=== PATIENT | female | born 1940 | race African-American/Black ===

== ENCOUNTER 2017-04-17 16:00 | Inpatient (IN) | payer MEDICARE ==
[2017-04-17 17:00] LABS: ADD MAN DIFF? NO
[2017-04-17 17:02] LABS: BASO # 0.1 x10^3/uL (0.0-0.2); BASO % 1 % (0-3); EOS # 0.1 x10^3/uL (0.0-0.7); EOS % 2 % (0-3); HEMOGLOBIN 11.9 g/dL (12.0-15.5); LYMPH # 1.7 x10^3/uL (1.0-4.8); LYMPH % 33 % (24-48); MEAN CORPUSCULAR HEMOGLOBIN 24 pg (25-35); MEAN CORPUSCULAR HGB CONC 32 g/dL (31-37); MEAN CORPUSCULAR VOLUME 73 fL (79-100); MONO # 0.8 x10^3/uL (0.0-1.1); MONO % 15 % (0-9); NEUT # 2.6 x10^3uL (1.8-7.7); NEUT % 49 % (31-73); PLATELET COUNT 257 x10^3/uL (140-400); RED BLOOD COUNT 5.05 x10^6/uL (3.50-5.40); RED CELL DISTRIBUTION WIDTH 20.5 % (11.5-14.5); WHITE BLOOD COUNT 5.4 x10^3/uL (4.0-11.0)
[2017-04-17 17:12] LABS: INR 1.3 (0.8-1.1); PROTHROMBIN TIME PATIENT 15.1 SEC (11.7-14.0)
[2017-04-17 17:13] LABS: PARTIAL THROMBOPLASTIN TIME 33 SEC (24-38)
[2017-04-17 17:14] LABS: ANION GAP 13 (6-14); BLOOD UREA NITROGEN 20 mg/dL (7-20); CALCIUM 9.4 mg/dL (8.5-10.1); CARBON DIOXIDE 25 mmol/L (21-32); CHLORIDE 104 mmol/L (98-107); CREATININE 5.1 mg/dL (0.6-1.0); GLUCOSE 81 mg/dL (70-99); POTASSIUM 4.7 mmol/L (3.5-5.1); SODIUM 142 mmol/L (136-145)
[2017-04-17 17:25] LABS: C-REACTIVE PROTEIN 13.5 mg/L (0-3.3)
[2017-04-17] MEDS ORDERED: ONDANSETRON PF 4 MG/2 ML VIAL. IV (18:00)
[2017-04-17 18:04] LABS: ANISOCYTOSIS MOD; HYPOCHROMIA MOD; MICROCYTOSIS MOD; PLT ESTIMATE ADEQUATE (ADEQUATE); POLYCHROMASIA SLIGHT; SCHISTOCYTES FEW; TARGET CELLS MOD; TOXIC GRANULATION SLIGHT; TOXIC VACUOLATION SLIGHT
[2017-04-17 18:29] LABS: SEDIMENTATION RATE 16 (0-25)
[2017-04-17] MEDS: CALCIUM ACETATE PO (21:00)
[2017-04-17] MEDS: fentaNYL PF VIAL 100 MCG/2 ML VIAL IV (21:50)
[2017-04-17] MEDS: sulfaSALAzine 500 MG TABLET PO (21:50)
[2017-04-17] MEDS: CINACALCET HCL 30 MG TABLET PO (21:50)
[2017-04-18 04:45] LABS: ADD MAN DIFF? NO
[2017-04-18 04:55] LABS: BASO # 0.1 x10^3/uL (0.0-0.2); BASO % 1 % (0-3); EOS # 0.3 x10^3/uL (0.0-0.7); EOS % 5 % (0-3); HEMATOCRIT 34.1 % (36.0-47.0); HEMOGLOBIN 10.7 g/dL (12.0-15.5); LYMPH # 1.5 x10^3/uL (1.0-4.8); LYMPH % 27 % (24-48); MEAN CORPUSCULAR HEMOGLOBIN 23 pg (25-35); MEAN CORPUSCULAR HGB CONC 31 g/dL (31-37); MEAN CORPUSCULAR VOLUME 73 fL (79-100); MONO # 0.8 x10^3/uL (0.0-1.1); MONO % 15 % (0-9); NEUT # 2.8 x10^3uL (1.8-7.7); NEUT % 52 % (31-73); PLATELET COUNT 243 x10^3/uL (140-400); RED BLOOD COUNT 4.69 x10^6/uL (3.50-5.40); RED CELL DISTRIBUTION WIDTH 20.5 % (11.5-14.5); WHITE BLOOD COUNT 5.5 x10^3/uL (4.0-11.0)
[2017-04-18 05:16] LABS: ANION GAP 14 (6-14); BLOOD UREA NITROGEN 26 mg/dL (7-20); CALCIUM 8.3 mg/dL (8.5-10.1); CARBON DIOXIDE 24 mmol/L (21-32); CHLORIDE 104 mmol/L (98-107); CREATININE 6.2 mg/dL (0.6-1.0); GLUCOSE 78 mg/dL (70-99); POTASSIUM 4.4 mmol/L (3.5-5.1); SODIUM 142 mmol/L (136-145)
[2017-04-18] MEDS: LEVOTHYROXINE 50 MCG TABLET PO (05:46)
[2017-04-18] MEDS: fentaNYL PF VIAL 100 MCG/2 ML VIAL IV ×2 (05:46→21:43)
[2017-04-18] MEDS: CALCIUM ACETATE PO ×3 (09:00→21:00)
[2017-04-18] MEDS: FOLIC/VIT B COMP W-C (RENAL) TABLET. PO (09:06)
[2017-04-18] MEDS: sulfaSALAzine 500 MG TABLET PO ×2 (09:06→21:32)
[2017-04-18] MEDS: ASPIRIN ENTERIC COATED 81 MG TABLET.DR. PO (09:15)
[2017-04-18] MEDS: CLOPIDOGREL BISULFATE 75 MG TABLET PO (09:15)
[2017-04-18] MEDS ORDERED: ACETAMINOPHEN 500 MG TABLET PO (09:30)
[2017-04-18] MEDS ORDERED: 0.9 % SODIUM CHLORIDE 10 ML DISP.SYRIN. IV ×2 (15:00)
[2017-04-18] MEDS ORDERED: IV NORMAL SALINE 1000ML BAG 1,000 ML IV (15:00)
[2017-04-18] MEDS: ONDANSETRON PF 4 MG/2 ML VIAL. IV (19:12)
[2017-04-18] MEDS ORDERED: DIALYSIS PATIENT. MC ×2 (20:45)
[2017-04-18] MEDS: CINACALCET HCL 30 MG TABLET PO (21:32)
[2017-04-19] MEDS: fentaNYL PF VIAL 100 MCG/2 ML VIAL IV ×2 (04:20→09:25)
[2017-04-19] MEDS: LEVOTHYROXINE 50 MCG TABLET PO (06:25)
[2017-04-19] MEDS: CALCIUM ACETATE PO (09:00)
[2017-04-19] MEDS: sulfaSALAzine 500 MG TABLET PO (09:19)
[2017-04-19] MEDS: CLOPIDOGREL BISULFATE 75 MG TABLET PO (09:19)
[2017-04-19] MEDS: ASPIRIN ENTERIC COATED 81 MG TABLET.DR. PO (09:19)
[2017-04-19] MEDS: FOLIC/VIT B COMP W-C (RENAL) TABLET. PO (09:19)
[2017-04-19] MEDS: traMADol 50 MG TABLET PO (10:50)
== END 2017-04-19 14:52 | disposition home health service (06) | DRG 123 ==
LOC: ER 16:00 → ED HOLD 17:09 → 6 SOUTH 20:30
PROC: 5A1D70Z Performance of Urinary Filtration, Intermittent, Less than 6 Hours Per Day (ICD-10-PCS; principal; 2017-04-18)
DX: H46.8 Other optic neuritis (principal); K50.90 Crohn's disease, unspecified, without complications; N18.6 End stage renal disease; D63.1 Anemia in chronic kidney disease; H47.012 Ischemic optic neuropathy, left eye; E03.9 Hypothyroidism, unspecified; E78.00 Pure hypercholesterolemia, unspecified; H54.62 Unqualified visual loss, left eye, normal vision right eye; M79.2 Neuralgia and neuritis, unspecified; Z88.5 Allergy status to narcotic agent; I73.9 Peripheral vascular disease, unspecified; Z79.82 Long term (current) use of aspirin; Z82.49 Family history of ischemic heart disease and other diseases of the circulatory system; Z86.73 Personal history of transient ischemic attack (TIA), and cerebral infarction without residual deficits; Z89.512 Acquired absence of left leg below knee; Z99.2 Dependence on renal dialysis; Z89.612 Acquired absence of left leg above knee
CPT/HCPCS: 36415; 70544; 70547; 70551; 80048; 85025; 85610; 85651; 85730; 86140; 93005; 93306; 97162-GP; 97166-GO; 97530-GP; J2405; J3010

== ENCOUNTER 2017-11-22 19:45 | Inpatient (IN) | payer MEDICARE ==
[~2017-11-22] VITALS: Ht 165.1 cm; Wt 43.2 kg
[~2017-11-22 19:45] MED LIST: ACET650S11 PR; CALC667S PO; CINA30TA2 PO; CINA60TA PO; CLON0.1T PO; CLON0.2T PO; DARBEPOETIN ALFA IN POLYSORBAT SQ; DIPH1TAB PO; DOXY100C14 PO; FOLI0.8T3 PO; HYDR-2762 PO; LEVO50TA5 PO; MIDO5TAB PO; POLY15DR27 OU; SULF500T PO; SULF500T7 PO; TRIA15CR3 TP; VANC1VIA3 MC
--- NOTE | 2017-11-22 20:06 | PHYS DOC ---
Past Medical History Past Medical History: Arrhythmia, High Cholesterol, Heart Disease, Renal Disease, Renal Failure Additional Past Medical Histor: CROHNS ,PVD Additional Past Surgical Histo: COLON RESECTION,AV SHUNT,LEFT BKA,RIGHT CHEST PERMACATH Alcohol Use: Occasionally Drug Use: None Adult General Chief Complaint Chief Complaint: WEAKNESS/GENERALIZED HPI HPI Patient is a 77 year old female with history of arrhythmias, high cholesterol , end-stage renal disease on dialysis Sunday last dialyzed on Sunday this week which is yesterday who presents today from a local [facility]. Patient is a very poor historian. Per report from the [facility] and EMS crew they state patient has had generalized weakness and they suspect she is septic. Source of infection unknown patient has a dialysis catheter on the right upper chest. Review of Systems Review of Systems Constitutional: Denies fever or chills [] Eyes: Denies change in visual acuity, redness, or eye pain [] HENT: Denies nasal congestion or sore throat [] Respiratory: Denies cough or shortness of breath [] Cardiovascular: No additional information not addressed in HPI [] GI: Denies abdominal pain, nausea, vomiting, bloody stools or diarrhea [] : Denies dysuria or hematuria [] Musculoskeletal: Denies back pain or joint pain [] Integument: Denies rash or skin lesions [] Neurologic: Reports generalized weakness. Denies headache, focal weakness or sensory changes [] All other systems were reviewed and found to be within normal limits, except as documented in this note. Current Medications Current Medications Current Medications Medications (Trade) Dose Ordered Sig/Yovanny Start Time Stop Time Status Last Admin Dose Admin Levofloxacin/ Dextrose 150 ml @ 100 mls/hr Q24H 11/22/17 20:00 11/23/17 00:00 DC 11/22/17 20:36 100 MLS/HR Allergies Allergies Allergies Coded Allergies Type Severity Reaction Last Updated Verified codeine Allergy Intermediate HIVES 04/17/17 Yes I S O L A T I O N *CONTACT* Allergy Unknown 11/12/17 Yes Physical Exam Physical Exam Constitutional: Well developed, well nourished, no acute distress, non-toxic appearance. [] HENT: Normocephalic, atraumatic, bilateral external ears normal, oropharynx moist, no oral exudates, nose normal. [] Eyes: PERRLA, EOMI, conjunctiva normal, no discharge. [] Neck: Normal range of motion, no tenderness, supple, no stridor. [] Cardiovascular:Heart rate regular rhythm Lungs & Thorax: Bilateral breath sounds clear to auscultation [] Right upper chest noted for a dialysis catheter. No signs of infection around the catheter site. Abdomen: Bowel sounds normal, soft, no tenderness, no masses, no pulsatile masses. [] Skin: Warm, very dry skin and dry mucous membranes. Back: No tenderness, no CVA tenderness. [] Extremities: No tenderness, no cyanosis, no clubbing, ROM intact, no edema. [] Neurologic: Alert and oriented X 3, normal motor function, normal sensory function, no focal deficits noted. [] Psychologic: Affect normal, judgement normal, mood normal. [] Current Patient Data Vital Signs Vital Signs Date Time Temp Pulse Resp B/P (MAP) Pulse Ox O2 Delivery O2 Flow Rate FiO2 11/22/17 21:00 94 19 100 11/22/17 20:00 100.2 90/51 (64) Nasal Cannula 4.0 100.2 Lab Values Laboratory Tests Test 11/22/17 20:00 White Blood Count 15.7 x10^3/uL (4.0-11.0) H Red Blood Count 3.44 x10^6/uL (3.50-5.40) L Hemoglobin 9.0 g/dL (12.0-15.5) L Hematocrit 28.9 % (36.0-47.0) L Mean Corpuscular Volume 84 fL (79-100) Mean Corpuscular Hemoglobin 26 pg (25-35) Mean Corpuscular Hemoglobin Concent 31 g/dL (31-37) Red Cell Distribution Width 20.9 % (11.5-14.5) H Platelet Count 643 x10^3/uL (140-400) H Neutrophils (%) (Auto) 69 % (31-73) Lymphocytes (%) (Auto) 14 % (24-48) L Monocytes (%) (Auto) 12 % (0-9) H Eosinophils (%) (Auto) 4 % (0-3) H Basophils (%) (Auto) 1 % (0-3) Neutrophils # (Auto) 10.9 x10^3uL (1.8-7.7) H Lymphocytes # (Auto) 2.2 x10^3/uL (1.0-4.8) Monocytes # (Auto) 1.8 x10^3/uL (0.0-1.1) H Eosinophils # (Auto) 0.6 x10^3/uL (0.0-0.7) Basophils # (Auto) 0.2 x10^3/uL (0.0-0.2) Platelet Estimate Increased (ADEQUATE) Large Platelets Present Polychromasia Slight Hypochromasia Slight Anisocytosis Mod Prothrombin Time 18.0 SEC (11.7-14.0) H Prothrombin Time INR 1.6 (0.8-1.1) H PTT 41 SEC (24-38) H Sodium Level 139 mmol/L (136-145) Potassium Level 3.3 mmol/L (3.5-5.1) L Chloride Level 97 mmol/L (98-107) L Carbon Dioxide Level 26 mmol/L (21-32) Anion Gap 16 (6-14) H Blood Urea Nitrogen 23 mg/dL (7-20) H Creatinine 4.5 mg/dL (0.6-1.0) H Estimated GFR (Cockcroft-Gault) 11.5 BUN/Creatinine Ratio 5 (6-20) L Glucose Level 127 mg/dL (70-99) H Lactic Acid Level 1.7 mmol/L (0.4-2.0) Calcium Level 11.1 mg/dL (8.5-10.1) H Magnesium Level 2.1 mg/dL (1.8-2.4) Total Bilirubin 1.2 mg/dL (0.2-1.0) H Aspartate Amino Transferase (AST) 26 U/L (15-37) Alanine Aminotransferase (ALT) 30 U/L (14-59) Alkaline Phosphatase 178 U/L (46-116) H Troponin I Quantitative < 0.017 ng/mL (0.000-0.055) NL-Krp-D-Type Natriuretic Peptide 68949 pg/mL (0-449) H Total Protein 10.2 g/dL (6.4-8.2) H Albumin 3.6 g/dL (3.4-5.0) Albumin/Globulin Ratio 0.5 (1.0-1.7) L Procalcitonin 7.19 ng/mL (0.00-0.10) H Laboratory Tests 11/22/17 20:00 Laboratory Tests 11/22/17 20:00 EKG EKG [] Radiology/Procedures Radiology/Procedures []PROCEDURE: PORTABLE CHEST 1V EXAM: CHEST 1 VIEW. HISTORY: Weakness, hypotension. COMPARISON: 11/14/2017. FINDINGS: A frontal view of the chest is obtained. A right internal jugular hemodialysis catheter has its tip in the right atrium. The previously noted right pleural effusion has decreased and is now small. A trace left pleural effusion may persist. There is mild atelectasis or infiltrate in the right base. There is no pneumothorax. The heart is mildly enlarged. There are chronic right rib fractures. IMPRESSION: 1. Improved pleural effusions, now small. 2. Right basilar atelectasis versus infiltrate. 3. Mild cardiomegaly. Electronically signed by: Casa Matute MD (11/22/2017 9:35 PM) [facility] DICTATED and SIGNED BY: JOELLE MATUTE MD DATE: 11/22/172132 PROCEDURE: CT HEAD WO CONTRAST EXAM: CT HEAD WITHOUT CONTRAST. HISTORY: Weakness. TECHNIQUE: Computed tomography of the head was performed without intravenous contrast. COMPARISON: 04/17/2017. FINDINGS: There is no intracranial hemorrhage. Hypoattenuation within the periventricular white matter indicates mild chronic microangiopathic change. Prominence of the lateral ventricles and hemispheric sulci indicates moderate atrophy. The visualized paranasal sinuses appear clear. There are changes of bilateral cataract surgery. The temporal bones are unremarkable. The calvarium reveals no suspicious lesions. There are atherosclerotic calcifications of the internal carotid and vertebral arteries. IMPRESSION: 1. No acute intracranial findings. 2. Moderate atrophy and mild chronic microangiopathic white matter change. *One or more of the following individualized dose reduction techniques were utilized for this examination: 1. Automated exposure control. 2. Adjustment of the mA and/or kV according to patient size. 3. Use of iterative reconstruction technique. Electronically signed by: Casa Matute MD (11/22/2017 9:33 PM) [facility] DICTATED and SIGNED BY: JOELLE MATUTE MD DATE: 11/22/172130 Course & Med Decision Making Course & Med Decision Making Pertinent Labs and Imaging studies reviewed. (See chart for details) This is a 77-year-old female patient presenting to the ED today from the local [facility], patient was sent to the ED for sepsis and generalized weakness. Patient has right upper chest dialysis catheter which has been infected before. Currently does not show any signs of infection on the exterior aspect. On arrival to the ED temperature was 100.2 heart rate 93 blood pressure 90/51 respirations 16 O2 sats 100% on 4 L of oxygen. CBC with a WBC of 15.7 and left shift, CMP with nothing acute, lactic 1.7. Chest x-ray interpreted by radiologist was concerning for right basilar atelectasis versus infiltrate. Patient was started on Zosyn and Levaquin. We gave her 500 ML of normal saline in the ED. She could not get the entire sepsis protocol IV fluids because of her end-stage renal disease. Consulted with Dr. Loyd who accepted patient for admission. Routine consult placed for infectious disease and nephrology. Dragon Disclaimer Dragon Disclaimer This electronic medical record was generated, in whole or in part, using a voice recognition dictation system. Departure Departure Impression: Primary Impression: RLL pneumonia Additional Impressions: Hypoxia Fever Leukocytosis End stage renal disease Disposition: ADMITTED INPATIENT Condition: STABLE Referrals: TONE QUINTANA MD (PCP) Attending Co-Sign Attending Co-Sign The patient was not seen by me. The [facility] chart was reviewed. I agree with the plan of care. Problem Qualifiers Primary Impression: RLL pneumonia Pneumonia type: due to unspecified organism Qualified Codes: J18.1 - Lobar pneumonia, unspecified organism Additional Impressions: Fever Fever type: unspecified Qualified Codes: R50.9 - Fever, unspecified Leukocytosis Leukocytosis type: unspecified Qualified Codes: D72.829 - Elevated white blood cell count, unspecified RADHA LANCE RIPSHEAR OPERATOR Nov 22, 2017 20:[address] MD Nov 24, 2017 14:58
[2017-11-22 20:14] LABS: BASO # 0.2 x10^3/uL (0.0-0.2); BASO % 1 % (0-3); EOS # 0.6 x10^3/uL (0.0-0.7); EOS % 4 % (0-3); HEMATOCRIT 28.9 % (36.0-47.0); LYMPH # 2.2 x10^3/uL (1.0-4.8); LYMPH % 14 % (24-48); MEAN CORPUSCULAR HEMOGLOBIN 26 pg (25-35); MEAN CORPUSCULAR HGB CONC 31 g/dL (31-37); MEAN CORPUSCULAR VOLUME 84 fL (79-100); MONO # 1.8 x10^3/uL (0.0-1.1); MONO % 12 % (0-9); NEUT # 10.9 x10^3uL (1.8-7.7); NEUT % 69 % (31-73); PLATELET COUNT 643 x10^3/uL (140-400); RED BLOOD COUNT 3.44 x10^6/uL (3.50-5.40); RED CELL DISTRIBUTION WIDTH 20.9 % (11.5-14.5); WHITE BLOOD COUNT 15.7 x10^3/uL (4.0-11.0)
[2017-11-22 20:23] LABS: CALCIUM 11.1 mg/dL (8.5-10.1); CREATININE 4.5 mg/dL (0.6-1.0); GFR 11.5; POTASSIUM 3.3 mmol/L (3.5-5.1)
[2017-11-22 20:38] LABS: ALBUMIN 3.6 g/dL (3.4-5.0); ALBUMIN/GLOBULIN RATIO 0.5 (1.0-1.7); MAGNESIUM 2.1 mg/dL (1.8-2.4); TOTAL BILIRUBIN 1.2 mg/dL (0.2-1.0); TOTAL PROTEIN 10.2 g/dL (6.4-8.2)
[2017-11-22 21:23] LABS: ANISOCYTOSIS MOD; HYPOCHROMIA SLIGHT
[2017-11-22 21:24] LABS: PLT ESTIMATE INCREASED (ADEQUATE); POLYCHROMASIA SLIGHT
[2017-11-22] MEDS ORDERED: ACETAMINOPHEN 325 MG TABLET. PO PRN (21:30)
[2017-11-22] MEDS ORDERED: IV NORMAL SALINE 500ML BAG 500 ML IV ONE (21:30)
[2017-11-22] MEDS ORDERED: ACETAMINOPHEN 500 MG TABLET PO ONE (21:30)
[2017-11-22] MEDS ORDERED: ONDANSETRON PF 4 MG/2 ML VIAL. IV PRN (21:30)
--- NOTE | 2017-11-22 21:36 | RAD ---
EXAM: CT HEAD WITHOUT CONTRAST. HISTORY: Weakness. TECHNIQUE: Computed tomography of the head was performed without intravenous contrast. COMPARISON: 04/17/2017. FINDINGS: There is no intracranial hemorrhage. Hypoattenuation within the periventricular white matter indicates mild chronic microangiopathic change. Prominence of the lateral ventricles and hemispheric sulci indicates moderate atrophy. The visualized paranasal sinuses appear clear. There are changes of bilateral cataract surgery. The temporal bones are unremarkable. The calvarium reveals no suspicious lesions. There are atherosclerotic calcifications of the internal carotid and vertebral arteries. IMPRESSION: 1. No acute intracranial findings. 2. Moderate atrophy and mild chronic microangiopathic white matter change. *One or more of the following individualized dose reduction techniques were utilized for this examination: 1. Automated exposure control. 2. Adjustment of the mA and/or kV according to patient size. 3. Use of iterative reconstruction technique. Electronically signed by: Casa Matute MD (11/22/2017 9:33 PM) [facility]
--- NOTE | 2017-11-22 21:38 | RAD ---
EXAM: CHEST 1 VIEW. HISTORY: Weakness, hypotension. COMPARISON: 11/14/2017. FINDINGS: A frontal view of the chest is obtained. A right internal jugular hemodialysis catheter has its tip in the right atrium. The previously noted right pleural effusion has decreased and is now small. A trace left pleural effusion may persist. There is mild atelectasis or infiltrate in the right base. There is no pneumothorax. The heart is mildly enlarged. There are chronic right rib fractures. IMPRESSION: 1. Improved pleural effusions, now small. 2. Right basilar atelectasis versus infiltrate. 3. Mild cardiomegaly. Electronically signed by: Casa Matute MD (11/22/2017 9:35 PM) [facility]
[2017-11-22 23:09] VITALS: BP 83/49
[2017-11-22] MEDS: fentaNYL PF VIAL 100 MCG/2 ML VIAL IV PRN (23:46)
[2017-11-23] MEDS ORDERED: PIPERACILLIN/TAZOBACTAM 4.5 GM in IV NORMAL SALINE 100ML 100 ML IV SCH ×2
[2017-11-23] MEDS ORDERED: MULT1TAB52 PO (00:24)
[2017-11-23 03:06] VITALS: BP 83/49
[2017-11-23 04:14] LABS: BASO # 0.2 x10^3/uL (0.0-0.2); BASO % 1 % (0-3); EOS # 0.7 x10^3/uL (0.0-0.7); EOS % 5 % (0-3); HEMATOCRIT 25.1 % (36.0-47.0); HEMOGLOBIN 8.1 g/dL (12.0-15.5); LYMPH # 1.7 x10^3/uL (1.0-4.8); LYMPH % 12 % (24-48); MEAN CORPUSCULAR HEMOGLOBIN 27 pg (25-35); MEAN CORPUSCULAR HGB CONC 32 g/dL (31-37); MEAN CORPUSCULAR VOLUME 84 fL (79-100); MONO % 14 % (0-9); NEUT # 9.6 x10^3uL (1.8-7.7); NEUT % 68 % (31-73); PLATELET COUNT 517 x10^3/uL (140-400); RED BLOOD COUNT 2.99 x10^6/uL (3.50-5.40); RED CELL DISTRIBUTION WIDTH 20.8 % (11.5-14.5); WHITE BLOOD COUNT 14.2 x10^3/uL (4.0-11.0)
[2017-11-23 04:34] LABS: CALCIUM 10.6 mg/dL (8.5-10.1); CREATININE 4.8 mg/dL (0.6-1.0); GFR 10.7; POTASSIUM 3.1 mmol/L (3.5-5.1)
[2017-11-23] MEDS: fentaNYL PF VIAL 100 MCG/2 ML VIAL IV PRN (05:05)
[2017-11-23] MEDS ORDERED: PIPERACILLIN/TAZOBACTAM 2.25 GM in IV NORMAL SALINE 50ML 50 ML IV SCH (06:00)
[2017-11-23 07:00] VITALS: BP 81/51
--- NOTE | 2017-11-23 08:17 | EKG ---
[facility] [address] [place] [address] Test Date: 2017-11-22 Test Time: 20:19:58 Pat Name: ELMA WAHL Department: Room: 532 1 Gender: F Manager Architectural: : 1940 Requested By: RADHA LANCE Order Number: [id number] Reading MD: Nahid Santana MD Measurements Intervals [place] Rate: 94 P: 44 PA: 178 QRS: 36 QRSD: 72 T: 55 QT: 356 QTc: 450 Interpretive Statements SINUS RHYTHM Electronically Signed On 11-26-2017 8:46:28 CDT by Nahid Santana MD
[2017-11-23] MEDS ORDERED: POTASSIUM CHLORIDE 20 MEQ TABLET.ER. PO ONE (09:00)
[2017-11-23] MEDS ORDERED: TRIAMCINOLONE ACETONIDE 0.1% TOPICAL CREAM 15GM TUBE. TP PRN (10:45)
[2017-11-23] MEDS ORDERED: POLYVINYL ALCOHOL 1.4% OPHTH SOLUTION 15ML BOTTLE. OU PRN (10:45)
[2017-11-23] MEDS ORDERED: ACETAMINOPHEN 650 MG SUPP.RECT. PR PRN (10:45)
[2017-11-23 11:00] VITALS: BP 80/49
--- NOTE | 2017-11-23 11:47 | PDOC ---
Renal-Progress Notes Subjective Notes Notes WEAKNESS History of Present Illness Hx of present illness STABLE Vitals Vitals Vital Signs Date Time Temp Pulse Resp B/P (MAP) Pulse Ox O2 Delivery O2 Flow Rate FiO2 11/23/17 11:00 97.9 88 18 80/49 (59) 100 Nasal Cannula 3.0 97.9 Weight Weight [ ] I.O. Intake and Output Intake and Output 11/23/17 07:00 Intake Total 300 ml Output Total 700 ml Balance -400 ml IV Total 300 ml Output Urine Total 0 ml Stool Total 100 ml Gastric Drainage Total 600 ml # Bowel Movements 3 Labs Labs Laboratory Tests Test 11/22/17 20:00 11/23/17 04:00 White Blood Count 15.7 x10^3/uL (4.0-11.0) 14.2 x10^3/uL (4.0-11.0) Red Blood Count 3.44 x10^6/uL (3.50-5.40) 2.99 x10^6/uL (3.50-5.40) Hemoglobin 9.0 g/dL (12.0-15.5) 8.1 g/dL (12.0-15.5) Hematocrit 28.9 % (36.0-47.0) 25.1 % (36.0-47.0) Mean Corpuscular Volume 84 fL (79-100) 84 fL (79-100) Mean Corpuscular Hemoglobin 26 pg (25-35) 27 pg (25-35) Mean Corpuscular Hemoglobin Concent 31 g/dL (31-37) 32 g/dL (31-37) Red Cell Distribution Width 20.9 % (11.5-14.5) 20.8 % (11.5-14.5) Platelet Count 643 x10^3/uL (140-400) 517 x10^3/uL (140-400) Neutrophils (%) (Auto) 69 % (31-73) 68 % (31-73) Lymphocytes (%) (Auto) 14 % (24-48) 12 % (24-48) Monocytes (%) (Auto) 12 % (0-9) 14 % (0-9) Eosinophils (%) (Auto) 4 % (0-3) 5 % (0-3) Basophils (%) (Auto) 1 % (0-3) 1 % (0-3) Neutrophils # (Auto) 10.9 x10^3uL (1.8-7.7) 9.6 x10^3uL (1.8-7.7) Lymphocytes # (Auto) 2.2 x10^3/uL (1.0-4.8) 1.7 x10^3/uL (1.0-4.8) Monocytes # (Auto) 1.8 x10^3/uL (0.0-1.1) 2.0 x10^3/uL (0.0-1.1) Eosinophils # (Auto) 0.6 x10^3/uL (0.0-0.7) 0.7 x10^3/uL (0.0-0.7) Basophils # (Auto) 0.2 x10^3/uL (0.0-0.2) 0.2 x10^3/uL (0.0-0.2) Platelet Estimate Increased (ADEQUATE) Large Platelets Present Polychromasia Slight Hypochromasia Slight Anisocytosis Mod Prothrombin Time 18.0 SEC (11.7-14.0) Prothromb Time International Ratio 1.6 (0.8-1.1) Activated Partial Thromboplast Time 41 SEC (24-38) Sodium Level 139 mmol/L (136-145) 137 mmol/L (136-145) Potassium Level 3.3 mmol/L (3.5-5.1) 3.1 mmol/L (3.5-5.1) Chloride Level 97 mmol/L (98-107) 98 mmol/L (98-107) Carbon Dioxide Level 26 mmol/L (21-32) 23 mmol/L (21-32) Anion Gap 16 (6-14) 16 (6-14) Blood Urea Nitrogen 23 mg/dL (7-20) 28 mg/dL (7-20) Creatinine 4.5 mg/dL (0.6-1.0) 4.8 mg/dL (0.6-1.0) Estimated GFR (Cockcroft-Gault) 11.5 10.7 BUN/Creatinine Ratio 5 (6-20) Glucose Level 127 mg/dL (70-99) 97 mg/dL (70-99) Lactic Acid Level 1.7 mmol/L (0.4-2.0) Calcium Level 11.1 mg/dL (8.5-10.1) 10.6 mg/dL (8.5-10.1) Magnesium Level 2.1 mg/dL (1.8-2.4) Total Bilirubin 1.2 mg/dL (0.2-1.0) Aspartate Amino Transf (AST/SGOT) 26 U/L (15-37) Alanine Aminotransferase (ALT/SGPT) 30 U/L (14-59) Alkaline Phosphatase 178 U/L (46-116) Troponin I Quantitative < 0.017 ng/mL (0.000-0.055) GM-Wig-G-Type Natriuretic Peptide 96704 pg/mL (0-449) Total Protein 10.2 g/dL (6.4-8.2) Albumin 3.6 g/dL (3.4-5.0) Albumin/Globulin Ratio 0.5 (1.0-1.7) Procalcitonin 7.19 ng/mL (0.00-0.10) Review of Systems Constitutional: yes: weakness, alert Ears/Nose/Throat: Yes: no symptom reported Eyes: Yes: no symptom reported Pulmonary: Yes no symptom reported Cardiovascular: Yes no symptom reported Gastrointestional: Yes: nausea, constipation Genitourinary: Yes: no symptom reported Musculoskeletal: Yes: muscle stiffness Skin: Yes no symptom reported Psychiatric/Neurological: Yes: no symptom reported Endocrine: Yes: no symptom reported Physical Exam Respiratory: decreased breath sounds Heart: S1S2 Abdomen: soft, bowel sounds present Extremities: pulses present Neurology: alert, oriented Musculoskeletal: Other Assessment Assessment IMP MRSA SEPSIS LEUCOCYTOSIS ANEMIA DM II HTN ESRD MET ENCEPHALOPATHY DECONDITIONING PLAN ABX HD TODAY UF TO DW WOULD BENEFIT FROM [facility] D/W ID WILL FOLLOW DANIELLE ACOSTA MD Nov 23, 2017 11:46
--- NOTE | 2017-11-23 11:55 | HP ---
ADMIT DATE: 11/22/2017 CHIEF COMPLAINT: Weakness, cough. HISTORY OF PRESENT ILLNESS: The patient is a pleasant 77-year-old female who is well known to our service. She presented with weakness and cough. She is a dialysis patient. She lives in a alf. She is a poor historian. EMS brought her in because of generalized weakness and the patient seems to be septic. Imaging studies showed a probable pneumonia on the right with basilar atelectasis and some cardiomegaly as well. She has now been admitted to the medical floor where we are giving her IV antibiotics, breathing treatments and consulting Pulmonary. PAST MEDICAL HISTORY: Previous pneumonia, debility, end-stage renal disease on dialysis; hypertension, arrhythmias, coronary disease, Crohn's, colon resection, left AV shunt, left BKA, Perm-A-Cath. ALLERGIES: CODEINE. FAMILY HISTORY: Coronary disease. SOCIAL HISTORY: She lives in a alf. Does not drink, smoke or take drugs. MEDICATIONS: Reviewed, please refer to the MRAD. REVIEW OF SYSTEMS: GENERAL: She complains of weakness. SKIN: No bruising, hair changes or rashes. EYES: No blurred, double or loss of vision. NOSE AND THROAT: No history of nosebleeds, hoarseness or sore throat. HEART: No history of palpitations, chest pain or shortness of breath on exertion. LUNGS: Denies cough, hemoptysis, wheezing or shortness of breath. GASTROINTESTINAL: Denies changes in appetite, nausea, vomiting, diarrhea or constipation. GENITOURINARY: No history of frequency, urgency, hesitancy or nocturia. NEUROLOGIC: Denies history of numbness, tingling, tremor or weakness. PSYCHIATRIC: No history of panic, anxiety or depression. ENDOCRINE: No history of heat or cold intolerance, polyuria or polydipsia. EXTREMITIES: Denies muscle weakness, joint pain, pain on walking or stiffness. PHYSICAL EXAMINATION: VITAL SIGNS: Temperature afebrile, pulse 80, respirations 20, blood pressure ranging from 90/51-81/51. GENERAL: She is awake, weak. HEART: Normal S1, S2. LUNGS: Coarse on the right. ABDOMEN: Soft. EXTREMITIES: Trace edema. SKIN: No rash. ENDOCRINE: No thyromegaly. LYMPHATICS: No cervical nodes. HEMATOPOIETIC: No bruising. LABORATORY DATA: White count is 15, hemoglobin 9, platelets 643. Electrolytes: Sodium 137, potassium 3.1, chloride 98, bicarbonate 23, BUN 28, creatinine 4.6, glucose 97, calcium is 10.6. Chest x-ray shows pneumonia and cardiomegaly. ASSESSMENT: 1. Sepsis. 2. Cardiomegaly. 3. Pneumonia. 4. Hypokalemia. 5. Acute on chronic renal failure. 6. Leukocytosis. 7. Anemia. 8. Thrombocytosis. PLAN: The patient has been admitted. We will start IV antibiotics. Consult Infectious Disease. Consult Nephrology. Consult Pulmonary. PT, OT, home meds, frequent labs. PROGNOSIS: Guarded. PORSCHE MCMAHAN DO DR: RADHA/radha JOB#: [id number] / [id number]
--- NOTE | 2017-11-23 12:11 | PDOC ---
Infectious Disease Note Subjective: Subjective Pt readmitted last night as she was continued to have hypotensive Was noted to have hypotensiion during her last dialysis session on 11/[facility] at [facility] per at bedside was sent on IV Vanc postdialysis for high grade MRSA bacteremia She was hypoxic and admitted for possible pneumonia restarted on levaquin and zosyn Pt well known to our service from recent discharge Sepsis with MRSA bacteremia POA from 10/31. -Repeat BC on 11/02, 11/04 & 11/08 positive. -Last BC 11/13 negative 2 D ECHO without evidence of veg Infected right HDC cath s/p removal on 11/01 + MRSA. -s/p interval placement of a temp LIJ/HDC on 11/01; now removed. -s/p Tunneled HDC placement on 11/16. Leukocytosis now worsening, last C diff here negative Resp failure w/ pleural effusion s/p thoracentesis 11/07 with 1/1 liter removed pH 7.51. 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 Dentures no conjunc petechia, no rash LUNGS:Dec bs at bases HEART: S1, S2. ABDOMEN: Soft. BS +. Ostomy left lower quadrant. No rebound, no guarding. EXTREMITIES: Left BKA, stump. Right lateral leg wound. looks clean VERIFICATION CLERK: Arouses easily to name, responds appropriately and follow commands SKIN: No generalized rash. Tunneled HDC (11/16) w/o signs of complications Medications: Inpatient Meds: Current Medications Medications (Trade) Dose Ordered Sig/Yovanny Start Time Stop Time Status Last Admin Dose Admin Acetaminophen (Tylenol Supp) 650 mg PRN Q6HRS PRN 11/23/17 10:45 Acetaminophen (Tylenol) 650 mg PRN Q4HRS PRN 11/22/17 21:30 11/23/17 21:29 11/23/17 09:57 650 MG Acetaminophen/ Hydrocodone Bitart (Lortab 7.5/325) 1 tab PRN Q8HRS PRN 11/23/17 10:45 Artificial Tears (Artificial Tears) 1 drop PRN Q15MIN PRN 11/23/17 10:45 Cinacalcet (Sensipar) 30 mg HS 11/23/17 21:00 Diphenoxylate HCl/ Atropine (Lomotil) 1 tab PRN Q8HRS PRN 11/23/17 10:45 Fentanyl Citrate (Fentanyl 2ml Vial) 50 mcg PRN Q2HR PRN 11/22/17 21:30 11/23/17 21:29 11/23/17 05:05 50 MCG Levofloxacin/ Dextrose 100 ml @ 100 mls/hr Q48H 11/24/17 21:00 Midodrine (Proamatine) 5 mg [id number] 11/23/17 13:00 Multivitamins (Thera M Plus) 1 tab DAILY 11/23/17 12:00 Ondansetron HCl (Zofran) 4 mg PRN Q8HRS PRN 11/22/17 21:30 11/23/17 21:29 Piperacillin Sod/ Tazobactam Sod 2.25 gm/Sodium Chloride 50 ml @ 100 mls/hr Q8HRS 11/23/17 06:00 11/23/17 04:58 100 MLS/HR Piperacillin Sod/ Tazobactam Sod 4.5 gm/Sodium Chloride 100 ml @ 200 mls/hr Q6HRS 11/23/17 00:00 11/23/17 00:29 DC 11/22/17 23:16 200 MLS/HR Potassium Chloride (Klor-Con) 40 meq 1X ONCE 11/23/17 09:00 11/23/17 09:03 DC 11/23/17 09:04 40 MEQ Sodium Chloride 500 ml @ 500 mls/hr 1X ONCE 11/22/17 21:30 11/22/17 22:29 DC 11/22/17 21:49 500 MLS/HR Sulfasalazine (Azulfidine) 500 mg BID 11/23/17 21:00 Triamcinolone Acetonide (Kenalog) 1 tj PRN Q8HRS PRN 11/23/17 10:45 Vitamin B Complex/ Vitamin C (Yaneth-Nabeel) 1 tab DAILY 11/23/17 11:00 Labs: Lab Laboratory Tests Test 11/22/17 20:00 11/23/17 04:00 White Blood Count 15.7 x10^3/uL (4.0-11.0) 14.2 x10^3/uL (4.0-11.0) Red Blood Count 3.44 x10^6/uL (3.50-5.40) 2.99 x10^6/uL (3.50-5.40) Hemoglobin 9.0 g/dL (12.0-15.5) 8.1 g/dL (12.0-15.5) Hematocrit 28.9 % (36.0-47.0) 25.1 % (36.0-47.0) Mean Corpuscular Volume 84 fL (79-100) 84 fL (79-100) Mean Corpuscular Hemoglobin 26 pg (25-35) 27 pg (25-35) Mean Corpuscular Hemoglobin Concent 31 g/dL (31-37) 32 g/dL (31-37) Red Cell Distribution Width 20.9 % (11.5-14.5) 20.8 % (11.5-14.5) Platelet Count 643 x10^3/uL (140-400) 517 x10^3/uL (140-400) Neutrophils (%) (Auto) 69 % (31-73) 68 % (31-73) Lymphocytes (%) (Auto) 14 % (24-48) 12 % (24-48) Monocytes (%) (Auto) 12 % (0-9) 14 % (0-9) Eosinophils (%) (Auto) 4 % (0-3) 5 % (0-3) Basophils (%) (Auto) 1 % (0-3) 1 % (0-3) Neutrophils # (Auto) 10.9 x10^3uL (1.8-7.7) 9.6 x10^3uL (1.8-7.7) Lymphocytes # (Auto) 2.2 x10^3/uL (1.0-4.8) 1.7 x10^3/uL (1.0-4.8) Monocytes # (Auto) 1.8 x10^3/uL (0.0-1.1) 2.0 x10^3/uL (0.0-1.1) Eosinophils # (Auto) 0.6 x10^3/uL (0.0-0.7) 0.7 x10^3/uL (0.0-0.7) Basophils # (Auto) 0.2 x10^3/uL (0.0-0.2) 0.2 x10^3/uL (0.0-0.2) Platelet Estimate Increased (ADEQUATE) Large Platelets Present Polychromasia Slight Hypochromasia Slight Anisocytosis Mod Prothrombin Time 18.0 SEC (11.7-14.0) Prothromb Time International Ratio 1.6 (0.8-1.1) Activated Partial Thromboplast Time 41 SEC (24-38) Sodium Level 139 mmol/L (136-145) 137 mmol/L (136-145) Potassium Level 3.3 mmol/L (3.5-5.1) 3.1 mmol/L (3.5-5.1) Chloride Level 97 mmol/L (98-107) 98 mmol/L (98-107) Carbon Dioxide Level 26 mmol/L (21-32) 23 mmol/L (21-32) Anion Gap 16 (6-14) 16 (6-14) Blood Urea Nitrogen 23 mg/dL (7-20) 28 mg/dL (7-20) Creatinine 4.5 mg/dL (0.6-1.0) 4.8 mg/dL (0.6-1.0) Estimated GFR (Cockcroft-Gault) 11.5 10.7 BUN/Creatinine Ratio 5 (6-20) Glucose Level 127 mg/dL (70-99) 97 mg/dL (70-99) Lactic Acid Level 1.7 mmol/L (0.4-2.0) Calcium Level 11.1 mg/dL (8.5-10.1) 10.6 mg/dL (8.5-10.1) Magnesium Level 2.1 mg/dL (1.8-2.4) Total Bilirubin 1.2 mg/dL (0.2-1.0) Aspartate Amino Transf (AST/SGOT) 26 U/L (15-37) Alanine Aminotransferase (ALT/SGPT) 30 U/L (14-59) Alkaline Phosphatase 178 U/L (46-116) Troponin I Quantitative < 0.017 ng/mL (0.000-0.055) GM-Xkx-J-Type Natriuretic Peptide 64020 pg/mL (0-449) Total Protein 10.2 g/dL (6.4-8.2) Albumin 3.6 g/dL (3.4-5.0) Albumin/Globulin Ratio 0.5 (1.0-1.7) Procalcitonin 7.19 ng/mL (0.00-0.10) Micro Micro BC from [facility] per DR Conrad reported from 11/21 positive for GPC ID and PARTH pending RUN DATE: 11/18/17 PAGE 1 RUN TIME: 1300 [facility] [address] [place] [address] Joshua Bower M.D., Automotive Engineering Teacher PATIENT: ELMA WAHL ACCT: [id number] LOC: [address] [place] [address] U : [id number] AGE/SX: 77/F ROOM: 556 REG : 10/31/[address]: GRAY ROWE MD : 1940 BED: 1 DIS : STATUS: ADM IN TLOC: SPEC #: [id number] BRANDON: 11/13/17-1250 STATUS: COMP REQ #: [id number] RECD: 11/13/179 [facility] DR: DOMONIQUE HARDEN MD SOURCE: BLOOD ENTR: 11/13/[address]: LEONARDO GONZALEZ MD [facility]: CHERI GAMA MD,DANIELLE DAMICO MD, MD,SAMANTHA Carr JR, MD ORDERED: BCULT Procedure Result BLOOD CULTURE Final NO GROWTH AFTER 5 DAYS RUN DATE: 11/14/17 PAGE 1 RUN TIME: 1641 [facility] [address] [facility] [place] [address] Joshua Bower M.D., Automotive Engineering Teacher PATIENT: ELMA WAHL ACCT: [id number] LOC: [address] [place] [address] U : [id number] AGE/SX: 77/F ROOM: 556 REG : 10/31/[address]: GRAY ROWE MD : 1940 BED: 1 DIS : STATUS: ADM IN TLOC: SPEC #: [id number] BRANDON: 11/08/17 STATUS: COMP REQ #: [id number] RECD: 11/12/[address]: RAYA SIERRA MD SOURCE: BLOOD ENTR: 11/12/[address] [facility] [address]: DOMONIQUE HARDEN MD SPDESC: LEONARDO GONZALEZ MD, AMAN U MD MARSH, IRA W MD NAIR,DANIELLE FRANCE,SAMANTHA Carr JR, MD ORDERED: BLD CULT - LC Procedure Result BLOOD CULTURE LC Final Final report BLD CULT RESULT 1 Final Comment Methicillin - resistant Staphylococcus aureus Based on resistance to oxacillin this isolate would be resistant to all currently available beta-lactam antimicrobial agents, with the exception of the newer cephalosporins with anti-MRSA activity, such as Ceftaroline This isolate does not demonstrate inducible clindamycin resistance in vitro by D test. CLINDAMYCIN <=0.25 S ERYTHROMYCIN >=8 R ANTIMICROBIAL SUSCEPTIBILITY Final Comment S = Susceptible; I = Intermediate; R = Resistant P = Positive; N = Negative MICS are expressed in micrograms per mL Antibiotic RSLT#1 RSLT#2 RSLT#3 RSLT#4 Ciprofloxacin R>=8 Clindamycin S<=0.25 Erythromycin R>=8 Gentamicin S<=0.5 Levofloxacin R>=8 Linezolid S =2 Oxacillin R>=4 Penicillin R>=0.5 Rifampin S<=0.5 Tetracycline R>=16 Trimethoprim/Sulfa S<=10 Vancomycin S<=0.5 CONTINUED ON NEXT PAGE RUN DATE: 11/14/17 PAGE 2 RUN TIME: 1623 [facility] [address] [place] [address] Joshua Bower M.D., Automotive Engineering Teacher SPEC: [id number] PATIENT: ELMA WAHL [id number] ( Continued) Procedure Result ANTIMICROBIAL SUSCEPTIBILITY Final (continued) Performed at: DA - [facility] [address] [facility] [address], [place], [place] [id number] Bilingual Customer Service: OSORIO Brantley MD, Phone: [phone] Objective: Assessment: Sepsis GPC from 11/21 POA on Vanc for MRSA bacteremia from previous admission H/O High grade MRSA bacteremia previous admission from 10/31. source infected HD cath,s/p removal -Repeat BC on 11/02, 11/04 & 11/08 positive. BC 11/13 negative -ECHO without evidence of veg Infected right HDC cath s/p removal on 11/01 + MRSA. -s/p interval placement of a temp LIJ/HDC on 11/01; now removed. -s/p Tunneled HDC placement on 11/16. Leukocytosis Resp failure w/ pleural effusion s/p thoracentesis 11/07 with 1/1 liter removed pH 7.51. 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
[2017-11-23] MEDS: MULTIVITAMIN with MINERAL TABLET. PO SCH (12:16)
[2017-11-23] MEDS: FOLIC/VIT B COMP W-C (RENAL) TABLET. PO SCH (12:16)
[2017-11-23] MEDS: MIDODRINE 5 MG TABLET PO SCH ×2 (12:16→17:56)
[2017-11-23] MEDS: HYDROcodone/APAP 7.5/325MG 1 TAB TABLET PO PRN ×2 (12:17→20:25)
[2017-11-23] MEDS: NORMAL SALINE IV SCH ×3 (12:28→20:25)
[2017-11-23] MEDS: CEFTAROLINE FOSAMIL IV SCH ×2 (12:28→20:25)
[2017-11-23] MEDS ORDERED: 0.9 % SODIUM CHLORIDE 10 ML DISP.SYRIN. IV PRN ×2 (12:45)
[2017-11-23] MEDS ORDERED: IV NORMAL SALINE 1000ML BAG 1,000 ML IV PRN ×2 (12:45)
[2017-11-23] MEDS ORDERED: DIALYSIS PATIENT. MC PRN ×2 (12:45)
--- NOTE | 2017-11-23 17:00 | PDOC ---
PULMONARY PROGRESS NOTES Vitals Vital Signs Date Time Temp Pulse Resp B/P (MAP) Pulse Ox O2 Delivery O2 Flow Rate FiO2 11/23/17 13:17 20 100 Nasal Cannula 4.0 11/23/17 12:16 88 80/49 11/23/17 11:00 97.9 97.9 General: Alert, No acute distress HEENT: Other Cardiovascular: S1, S2 Abdomen: Soft, Non-tender Extremities: Other Labs Laboratory Tests Test 11/22/17 20:00 11/23/17 04:00 White Blood Count 15.7 x10^3/uL (4.0-11.0) 14.2 x10^3/uL (4.0-11.0) Red Blood Count 3.44 x10^6/uL (3.50-5.40) 2.99 x10^6/uL (3.50-5.40) Hemoglobin 9.0 g/dL (12.0-15.5) 8.1 g/dL (12.0-15.5) Hematocrit 28.9 % (36.0-47.0) 25.1 % (36.0-47.0) Mean Corpuscular Volume 84 fL (79-100) 84 fL (79-100) Mean Corpuscular Hemoglobin 26 pg (25-35) 27 pg (25-35) Mean Corpuscular Hemoglobin Concent 31 g/dL (31-37) 32 g/dL (31-37) Red Cell Distribution Width 20.9 % (11.5-14.5) 20.8 % (11.5-14.5) Platelet Count 643 x10^3/uL (140-400) 517 x10^3/uL (140-400) Neutrophils (%) (Auto) 69 % (31-73) 68 % (31-73) Lymphocytes (%) (Auto) 14 % (24-48) 12 % (24-48) Monocytes (%) (Auto) 12 % (0-9) 14 % (0-9) Eosinophils (%) (Auto) 4 % (0-3) 5 % (0-3) Basophils (%) (Auto) 1 % (0-3) 1 % (0-3) Neutrophils # (Auto) 10.9 x10^3uL (1.8-7.7) 9.6 x10^3uL (1.8-7.7) Lymphocytes # (Auto) 2.2 x10^3/uL (1.0-4.8) 1.7 x10^3/uL (1.0-4.8) Monocytes # (Auto) 1.8 x10^3/uL (0.0-1.1) 2.0 x10^3/uL (0.0-1.1) Eosinophils # (Auto) 0.6 x10^3/uL (0.0-0.7) 0.7 x10^3/uL (0.0-0.7) Basophils # (Auto) 0.2 x10^3/uL (0.0-0.2) 0.2 x10^3/uL (0.0-0.2) Platelet Estimate Increased (ADEQUATE) Large Platelets Present Polychromasia Slight Hypochromasia Slight Anisocytosis Mod Prothrombin Time 18.0 SEC (11.7-14.0) Prothromb Time International Ratio 1.6 (0.8-1.1) Activated Partial Thromboplast Time 41 SEC (24-38) Sodium Level 139 mmol/L (136-145) 137 mmol/L (136-145) Potassium Level 3.3 mmol/L (3.5-5.1) 3.1 mmol/L (3.5-5.1) Chloride Level 97 mmol/L (98-107) 98 mmol/L (98-107) Carbon Dioxide Level 26 mmol/L (21-32) 23 mmol/L (21-32) Anion Gap 16 (6-14) 16 (6-14) Blood Urea Nitrogen 23 mg/dL (7-20) 28 mg/dL (7-20) Creatinine 4.5 mg/dL (0.6-1.0) 4.8 mg/dL (0.6-1.0) Estimated GFR (Cockcroft-Gault) 11.5 10.7 BUN/Creatinine Ratio 5 (6-20) Glucose Level 127 mg/dL (70-99) 97 mg/dL (70-99) Lactic Acid Level 1.7 mmol/L (0.4-2.0) Calcium Level 11.1 mg/dL (8.5-10.1) 10.6 mg/dL (8.5-10.1) Magnesium Level 2.1 mg/dL (1.8-2.4) Total Bilirubin 1.2 mg/dL (0.2-1.0) Aspartate Amino Transf (AST/SGOT) 26 U/L (15-37) Alanine Aminotransferase (ALT/SGPT) 30 U/L (14-59) Alkaline Phosphatase 178 U/L (46-116) Troponin I Quantitative < 0.017 ng/mL (0.000-0.055) GE-Pok-V-Type Natriuretic Peptide 84590 pg/mL (0-449) Total Protein 10.2 g/dL (6.4-8.2) Albumin 3.6 g/dL (3.4-5.0) Albumin/Globulin Ratio 0.5 (1.0-1.7) Procalcitonin 7.19 ng/mL (0.00-0.10) Laboratory Tests Test 11/22/17 20:00 11/23/17 04:00 White Blood Count 15.7 x10^3/uL (4.0-11.0) 14.2 x10^3/uL (4.0-11.0) Red Blood Count 3.44 x10^6/uL (3.50-5.40) 2.99 x10^6/uL (3.50-5.40) Hemoglobin 9.0 g/dL (12.0-15.5) 8.1 g/dL (12.0-15.5) Hematocrit 28.9 % (36.0-47.0) 25.1 % (36.0-47.0) Mean Corpuscular Volume 84 fL (79-100) 84 fL (79-100) Mean Corpuscular Hemoglobin 26 pg (25-35) 27 pg (25-35) Mean Corpuscular Hemoglobin Concent 31 g/dL (31-37) 32 g/dL (31-37) Red Cell Distribution Width 20.9 % (11.5-14.5) 20.8 % (11.5-14.5) Platelet Count 643 x10^3/uL (140-400) 517 x10^3/uL (140-400) Neutrophils (%) (Auto) 69 % (31-73) 68 % (31-73) Lymphocytes (%) (Auto) 14 % (24-48) 12 % (24-48) Monocytes (%) (Auto) 12 % (0-9) 14 % (0-9) Eosinophils (%) (Auto) 4 % (0-3) 5 % (0-3) Basophils (%) (Auto) 1 % (0-3) 1 % (0-3) Neutrophils # (Auto) 10.9 x10^3uL (1.8-7.7) 9.6 x10^3uL (1.8-7.7) Lymphocytes # (Auto) 2.2 x10^3/uL (1.0-4.8) 1.7 x10^3/uL (1.0-4.8) Monocytes # (Auto) 1.8 x10^3/uL (0.0-1.1) 2.0 x10^3/uL (0.0-1.1) Eosinophils # (Auto) 0.6 x10^3/uL (0.0-0.7) 0.7 x10^3/uL (0.0-0.7) Basophils # (Auto) 0.2 x10^3/uL (0.0-0.2) 0.2 x10^3/uL (0.0-0.2) Platelet Estimate Increased (ADEQUATE) Large Platelets Present Polychromasia Slight Hypochromasia Slight Anisocytosis Mod Prothrombin Time 18.0 SEC (11.7-14.0) Prothromb Time International Ratio 1.6 (0.8-1.1) Activated Partial Thromboplast Time 41 SEC (24-38) Sodium Level 139 mmol/L (136-145) 137 mmol/L (136-145) Potassium Level 3.3 mmol/L (3.5-5.1) 3.1 mmol/L (3.5-5.1) Chloride Level 97 mmol/L (98-107) 98 mmol/L (98-107) Carbon Dioxide Level 26 mmol/L (21-32) 23 mmol/L (21-32) Anion Gap 16 (6-14) 16 (6-14) Blood Urea Nitrogen 23 mg/dL (7-20) 28 mg/dL (7-20) Creatinine 4.5 mg/dL (0.6-1.0) 4.8 mg/dL (0.6-1.0) Estimated GFR (Cockcroft-Gault) 11.5 10.7 BUN/Creatinine Ratio 5 (6-20) Glucose Level 127 mg/dL (70-99) 97 mg/dL (70-99) Lactic Acid Level 1.7 mmol/L (0.4-2.0) Calcium Level 11.1 mg/dL (8.5-10.1) 10.6 mg/dL (8.5-10.1) Magnesium Level 2.1 mg/dL (1.8-2.4) Total Bilirubin 1.2 mg/dL (0.2-1.0) Aspartate Amino Transf (AST/SGOT) 26 U/L (15-37) Alanine Aminotransferase (ALT/SGPT) 30 U/L (14-59) Alkaline Phosphatase 178 U/L (46-116) Troponin I Quantitative < 0.017 ng/mL (0.000-0.055) HI-Kvg-P-Type Natriuretic Peptide 55759 pg/mL (0-449) Total Protein 10.2 g/dL (6.4-8.2) Albumin 3.6 g/dL (3.4-5.0) Albumin/Globulin Ratio 0.5 (1.0-1.7) Procalcitonin 7.19 ng/mL (0.00-0.10) Medications Active Scripts Medications Dose Route/Sig Max Daily Dose Days Date Category Dose Instructions Multivitamins (Multivitamin) 1 Each Tablet 1 Tab PO DAILY 11/23/17 Reported Artificial Tears (Polyvinyl Alcohol) 15 Ml Drops 1 Drop OU PRN Q15MIN PRN 30 11/16/17 Rx Acetaminophen Supp (Acetaminophen) 650 Mg Supp.rect 650 Mg AL PRN Q6HRS PRN 30 11/16/17 Rx Hydrocodone-Apap 7.5-325 (Hydrocodone Bit/Acetaminophen) 1 Each Tablet 1 Tab PO PRN Q8HRS PRN 7 11/16/17 Rx Sensipar (Cinacalcet Hcl) 30 Mg Tablet 1 Tab PO HS 11/03/17 Reported Azulfidine (Sulfasalazine) 500 Mg Tablet 500 Mg PO BID 11/03/17 Reported Lomotil Tablet (Diphenoxylate Hcl/Atropine) 1 Each Tablet 1 Tab PO PRN Q8HRS 11/03/17 Reported Nephro-Nabeel Tablet (Folic Acid/Vitamin B Comp W-C) 0.8 Mg Tablet 1 Tab PO DAILY 10/31/17 Reported Triamcinolone Acetonide 0.1% Cream (Triamcinolone Acetonide) 15 Gm Cream..g. 1 Hanh TP PRN Q8HRS 10/31/17 Reported apply to bilat legs topically as needed for skin care Midodrine Hcl 5 Mg Tablet 5 Mg PO TID 10/31/17 Reported notify PCP if BP >180/110, P <60 Impression . FULL CONSULT DICTATED RESP STATUS IS COMPENSATED AGREE WITH CURRENT RX MONTANA BETTS MD Nov 23, 2017 17:00
[2017-11-23] MEDS: DAPTOMYCIN IV SCH (17:56)
[2017-11-23 19:00] VITALS: BP 87/50
[2017-11-23] MEDS: CINACALCET HCL 30 MG TABLET PO SCH (20:25)
[2017-11-23] MEDS: sulfaSALAzine 500 MG TABLET PO SCH (20:25)
[2017-11-23 23:00] VITALS: BP 84/46
--- NOTE | 2017-11-23 23:13 | CONS ---
DATE OF CONSULTATION: 11/23/2017 ATTENDING PHYSICIAN: Mary Ann Nuñez D.O. REASON FOR CONSULTATION: The patient seen in pulmonary consultation at the request of Dr. Nuñez for abnormal x-ray. HISTORY OF PRESENT ILLNESS: The patient is a 77-year-old female known to me from previous hospitalization. She has a history of arrhythmias, hyperlipidemia and end-stage renal disease; was actually treated recently for sepsis, gram-positive cocci and MRSA bacteremia. The patient was at a local half-way. She presented because apparently she had a low blood pressure and she has some generalized weakness that suspected a new infection she was presented. She has previous abnormal x-ray revealing bilateral pleural effusion. She actually underwent bilateral thoracentesis during the last admission. I reviewed the current x-ray, which revealed much improvement in both the infiltrates and the infusion. There is only a small pleural effusion on the right. There is some possible atelectasis in the right base. The patient was seen in Hemodialysis Suite. She was awake, alert and following commands, not complaining of being short of breath and does not have a cough. PAST MEDICAL HISTORY: Remarkable for: 1. Recent sepsis with MRSA bacteremia, presented back in October. 2. Infected right hemodialysis catheter, which was removed. 3. Bilateral pleural effusion, status post thoracentesis, to date no growth. It was transudative in nature. 4. Chronic AFib. 5. End-stage renal disease. 6. Anemia. 7. Left below knee amputation. 8. Chronic lateral left nonhealing wound. 9. Dysphagia. 10. She has a history of Crohn's disease, status post colon resection with ostomy bag placement. ALLERGIES: To CODEINE. REVIEW OF SYSTEMS: As indicated above, otherwise, a 10-point system was reviewed and negative. CURRENT MEDICATIONS: List was reviewed. PHYSICAL EXAMINATION: GENERAL: The patient was in the Hemodialysis Unit. She was in no respiratory distress. VITAL SIGNS: Blood pressure was low at 76/50. The patient was asymptomatic, not complaining of dizziness. HEENT: Eyes, the sclerae were nonicteric. NECK: Jugular venous distention was not elevated. No lymphadenopathy. CHEST: Full expansion. LUNGS: Adequate airway flow with no wheezes. CARDIOVASCULAR: Regular rate and rhythm with S1 and S2. No S3. ABDOMEN: Soft, nontender and nondistended. EXTREMITIES: No clubbing, cyanosis or edema. She has evidence of previous left BKA. RADIOLOGICAL DATA: Chest x-ray reviewed as indicated above. LABORATORY DATA: White count was elevated. INR was 1.6. Electrolytes were noted. BUN was elevated. Creatinine was elevated. Procalcitonin was elevated. IMPRESSION: 1. Abnormal x-ray revealing small right-sided effusion. The patient is status post bilateral thoracentesis back on November 07. Cultures are negative transudative effusion. 2. History of methicillin-resistant Staphylococcus aureus bacteremia, previous admission from 10/31/2017, the source was hemodialyzed catheter. 3. Atrial fibrillation. 4. End-stage renal disease. 5. Anemia. 6. Chronic lateral right leg nonhealing wound. 7. Hypotension. PLAN: 1. Pulmonary status appears to be compensated. No signs of pulmonary infection. 2. ID has been consulted. Follow ID input. 3. Hemodialysis per Nephrology. 4. Suspect hypotension related to intravascular volume depletion. I appreciate the privilege in sharing the patient's care. We will follow along. MONTANA BETTS MD DR: GELY/radha JOB#: [id number] / [id number]
[2017-11-24] MEDS: fentaNYL PF VIAL 100 MCG/2 ML VIAL IV PRN (00:38)
[2017-11-24 03:00] VITALS: BP 93/55
[2017-11-24] MEDS: MIDODRINE 5 MG TABLET PO SCH ×3 (05:40→17:45)
[2017-11-24 07:00] VITALS: BP 77/45
--- NOTE | 2017-11-24 08:26 | PDOC ---
PULMONARY PROGRESS NOTES Subjective feels better, sob better, has occ cough, has toe pain Vitals Vital Signs Date Time Temp Pulse Resp B/P (MAP) Pulse Ox O2 Delivery O2 Flow Rate FiO2 11/24/17 05:40 90 93/55 11/24/17 03:00 98.3 18 94 Nasal Cannula 3.0 98.3 ROS: No Nausea General: Alert, No acute distress HEENT: Other (nc at perrl ) Lungs: Crackles Cardiovascular: S1, S2 Abdomen: Soft, Non-tender Neuro Exam: Alert Extremities: Other (l bka) Skin: Warm Labs Laboratory Tests Test 11/22/17 20:00 11/22/17 23:25 11/23/17 04:00 White Blood Count 15.7 x10^3/uL (4.0-11.0) 14.2 x10^3/uL (4.0-11.0) Red Blood Count 3.44 x10^6/uL (3.50-5.40) 2.99 x10^6/uL (3.50-5.40) Hemoglobin 9.0 g/dL (12.0-15.5) 8.1 g/dL (12.0-15.5) Hematocrit 28.9 % (36.0-47.0) 25.1 % (36.0-47.0) Mean Corpuscular Volume 84 fL (79-100) 84 fL (79-100) Mean Corpuscular Hemoglobin 26 pg (25-35) 27 pg (25-35) Mean Corpuscular Hemoglobin Concent 31 g/dL (31-37) 32 g/dL (31-37) Red Cell Distribution Width 20.9 % (11.5-14.5) 20.8 % (11.5-14.5) Platelet Count 643 x10^3/uL (140-400) 517 x10^3/uL (140-400) Neutrophils (%) (Auto) 69 % (31-73) 68 % (31-73) Lymphocytes (%) (Auto) 14 % (24-48) 12 % (24-48) Monocytes (%) (Auto) 12 % (0-9) 14 % (0-9) Eosinophils (%) (Auto) 4 % (0-3) 5 % (0-3) Basophils (%) (Auto) 1 % (0-3) 1 % (0-3) Neutrophils # (Auto) 10.9 x10^3uL (1.8-7.7) 9.6 x10^3uL (1.8-7.7) Lymphocytes # (Auto) 2.2 x10^3/uL (1.0-4.8) 1.7 x10^3/uL (1.0-4.8) Monocytes # (Auto) 1.8 x10^3/uL (0.0-1.1) 2.0 x10^3/uL (0.0-1.1) Eosinophils # (Auto) 0.6 x10^3/uL (0.0-0.7) 0.7 x10^3/uL (0.0-0.7) Basophils # (Auto) 0.2 x10^3/uL (0.0-0.2) 0.2 x10^3/uL (0.0-0.2) Platelet Estimate Increased (ADEQUATE) Large Platelets Present Polychromasia Slight Hypochromasia Slight Anisocytosis Mod Prothrombin Time 18.0 SEC (11.7-14.0) Prothromb Time International Ratio 1.6 (0.8-1.1) Activated Partial Thromboplast Time 41 SEC (24-38) Sodium Level 139 mmol/L (136-145) 137 mmol/L (136-145) Potassium Level 3.3 mmol/L (3.5-5.1) 3.1 mmol/L (3.5-5.1) Chloride Level 97 mmol/L (98-107) 98 mmol/L (98-107) Carbon Dioxide Level 26 mmol/L (21-32) 23 mmol/L (21-32) Anion Gap 16 (6-14) 16 (6-14) Blood Urea Nitrogen 23 mg/dL (7-20) 28 mg/dL (7-20) Creatinine 4.5 mg/dL (0.6-1.0) 4.8 mg/dL (0.6-1.0) Estimated GFR (Cockcroft-Gault) 11.5 10.7 BUN/Creatinine Ratio 5 (6-20) Glucose Level 127 mg/dL (70-99) 97 mg/dL (70-99) Lactic Acid Level 1.7 mmol/L (0.4-2.0) Calcium Level 11.1 mg/dL (8.5-10.1) 10.6 mg/dL (8.5-10.1) Magnesium Level 2.1 mg/dL (1.8-2.4) Total Bilirubin 1.2 mg/dL (0.2-1.0) Aspartate Amino Transf (AST/SGOT) 26 U/L (15-37) Alanine Aminotransferase (ALT/SGPT) 30 U/L (14-59) Alkaline Phosphatase 178 U/L (46-116) Troponin I Quantitative < 0.017 ng/mL (0.000-0.055) WE-Dit-R-Type Natriuretic Peptide 54946 pg/mL (0-449) Total Protein 10.2 g/dL (6.4-8.2) Albumin 3.6 g/dL (3.4-5.0) Albumin/Globulin Ratio 0.5 (1.0-1.7) Procalcitonin 7.19 ng/mL (0.00-0.10) Nasal Screen MRSA (PCR) Negative (Negative) Medications Active Scripts Medications Dose Route/Sig Max Daily Dose Days Date Category Dose Instructions Multivitamins (Multivitamin) 1 Each Tablet 1 Tab PO DAILY 11/23/17 Reported Artificial Tears (Polyvinyl Alcohol) 15 Ml Drops 1 Drop OU PRN Q15MIN PRN 30 11/16/17 Rx Acetaminophen Supp (Acetaminophen) 650 Mg Supp.rect 650 Mg [place] PRN Q6HRS PRN 30 11/16/17 Rx Hydrocodone-Apap 7.5-325 (Hydrocodone Bit/Acetaminophen) 1 Each Tablet 1 Tab PO PRN Q8HRS PRN 7 11/16/17 Rx Sensipar (Cinacalcet Hcl) 30 Mg Tablet 1 Tab PO HS 11/03/17 Reported Azulfidine (Sulfasalazine) 500 Mg Tablet 500 Mg PO BID 11/03/17 Reported Lomotil Tablet (Diphenoxylate Hcl/Atropine) 1 Each Tablet 1 Tab PO PRN Q8HRS 11/03/17 Reported Nephro-Nabeel Tablet (Folic Acid/Vitamin B Comp W-C) 0.8 Mg Tablet 1 Tab PO DAILY 10/31/17 Reported Triamcinolone Acetonide 0.1% Cream (Triamcinolone Acetonide) 15 Gm Cream..g. 1 Hanh TP PRN Q8HRS 10/31/17 Reported apply to bilat legs topically as needed for skin care Midodrine Hcl 5 Mg Tablet 5 Mg PO TID 10/31/17 Reported notify PCP if BP >180/110, P <60 Impression . IMPRESSION: 1. Abnormal x-ray revealing small right-sided effusion. The patient is status post bilateral thoracentesis back on November 07. Cultures are negative transudative effusion. 2. History of methicillin-resistant Staphylococcus aureus bacteremia, previous admission from 10/31/2017, the source was hemodialyzed catheter. 3. Atrial fibrillation. 4. End-stage renal disease. 5. Anemia. 6. Chronic lateral right leg nonhealing wound. 7. Hypotension. Plan . PLAN: 1. Pulmonary status appears to be compensated. No signs of pulmonary infection. 2. ID has been consulted. Follow ID input. cont abx 3. Hemodialysis per Nephrology. 4. Suspect hypotension related to intravascular volume depletion. fluid per nephro discussed w pt CM CATALAN MD Nov 24, 2017 08:26
[2017-11-24] MEDS: sulfaSALAzine 500 MG TABLET PO SCH ×2 (08:45→20:33)
[2017-11-24] MEDS: MULTIVITAMIN with MINERAL TABLET. PO SCH (08:45)
[2017-11-24] MEDS: FOLIC/VIT B COMP W-C (RENAL) TABLET. PO SCH (08:45)
[2017-11-24] MEDS: CEFTAROLINE FOSAMIL IV SCH (09:00)
[2017-11-24] MEDS: NORMAL SALINE IV SCH (09:00)
[2017-11-24] MEDS: HYDROcodone/APAP 7.5/325MG 1 TAB TABLET PO PRN ×2 (09:08→17:45)
[2017-11-24 11:00] VITALS: BP 74/45
--- NOTE | 2017-11-24 11:37 | PDOC ---
PROGRESS NOTES Chief Complaint Chief Complaint Pneumonia Ischemic neuropathy of foot leukocytosis End Stage Renal Disease possible c. diff History of Present Illness History of Present Illness pt seen and examine pt was pleasantly confused VSS dw/ RN Vitals Vitals Vital Signs Date Time Temp Pulse Resp B/P (MAP) Pulse Ox O2 Delivery O2 Flow Rate FiO2 11/24/17 11:00 98.6 88 18 74/45 (55) 99 Nasal Cannula 3.0 98.6 Physical Exam Physical Exam GENERAL: Thin female ,alert awake, comfortable On O2 HEENT: Oral cavity dry. Dentures no conjunc petechia, no rash LUNGS:Dec bs at bases, mild expiratory crackles HEART: S1, S2. ABDOMEN: Soft. BS +. Ostomy left lower quadrant. No rebound, no guarding. EXTREMITIES: Left BKA, stump. Right lateral leg wound. 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 Tunneled HDC (11/16) w/o signs of complications General: Alert, No acute distress Heart: Normal S1, Normal S2 Lungs: Clear, Crackles Extremities: No clubbing, No cyanosis Skin: No rashes, No breakdown Labs LABS Laboratory Tests Test 11/23/17 13:15 Clostridium difficile Toxin (PCR) Negative (Negative) Review of Systems Review of Systems CO hunger CO fatigue Assessment and Plan Assessmemt and Plan Problems Medical Problems: (1) End stage renal disease Status: Acute (2) Fever Status: Acute (3) Leukocytosis Status: Acute Pneumonia Ischemic neuropathy of foot leukocytosis End Stage Renal Disease possible c. diff Plan: IV Abx Breathing treatments Home Meds Labs Comment Review of Relevant I have reviewed the following items olivia (where applicable) has been applied. Labs Laboratory Tests Test 11/22/17 20:00 11/22/17 23:25 11/23/17 04:00 11/23/17 13:15 White Blood Count 15.7 x10^3/uL (4.0-11.0) 14.2 x10^3/uL (4.0-11.0) Red Blood Count 3.44 x10^6/uL (3.50-5.40) 2.99 x10^6/uL (3.50-5.40) Hemoglobin 9.0 g/dL (12.0-15.5) 8.1 g/dL (12.0-15.5) Hematocrit 28.9 % (36.0-47.0) 25.1 % (36.0-47.0) Mean Corpuscular Volume 84 fL (79-100) 84 fL (79-100) Mean Corpuscular Hemoglobin 26 pg (25-35) 27 pg (25-35) Mean Corpuscular Hemoglobin Concent 31 g/dL (31-37) 32 g/dL (31-37) Red Cell Distribution Width 20.9 % (11.5-14.5) 20.8 % (11.5-14.5) Platelet Count 643 x10^3/uL (140-400) 517 x10^3/uL (140-400) Neutrophils (%) (Auto) 69 % (31-73) 68 % (31-73) Lymphocytes (%) (Auto) 14 % (24-48) 12 % (24-48) Monocytes (%) (Auto) 12 % (0-9) 14 % (0-9) Eosinophils (%) (Auto) 4 % (0-3) 5 % (0-3) Basophils (%) (Auto) 1 % (0-3) 1 % (0-3) Neutrophils # (Auto) 10.9 x10^3uL (1.8-7.7) 9.6 x10^3uL (1.8-7.7) Lymphocytes # (Auto) 2.2 x10^3/uL (1.0-4.8) 1.7 x10^3/uL (1.0-4.8) Monocytes # (Auto) 1.8 x10^3/uL (0.0-1.1) 2.0 x10^3/uL (0.0-1.1) Eosinophils # (Auto) 0.6 x10^3/uL (0.0-0.7) 0.7 x10^3/uL (0.0-0.7) Basophils # (Auto) 0.2 x10^3/uL (0.0-0.2) 0.2 x10^3/uL (0.0-0.2) Platelet Estimate Increased (ADEQUATE) Large Platelets Present Polychromasia Slight Hypochromasia Slight Anisocytosis Mod Prothrombin Time 18.0 SEC (11.7-14.0) Prothromb Time International Ratio 1.6 (0.8-1.1) Activated Partial Thromboplast Time 41 SEC (24-38) Sodium Level 139 mmol/L (136-145) 137 mmol/L (136-145) Potassium Level 3.3 mmol/L (3.5-5.1) 3.1 mmol/L (3.5-5.1) Chloride Level 97 mmol/L (98-107) 98 mmol/L (98-107) Carbon Dioxide Level 26 mmol/L (21-32) 23 mmol/L (21-32) Anion Gap 16 (6-14) 16 (6-14) Blood Urea Nitrogen 23 mg/dL (7-20) 28 mg/dL (7-20) Creatinine 4.5 mg/dL (0.6-1.0) 4.8 mg/dL (0.6-1.0) Estimated GFR (Cockcroft-Gault) 11.5 10.7 BUN/Creatinine Ratio 5 (6-20) Glucose Level 127 mg/dL (70-99) 97 mg/dL (70-99) Lactic Acid Level 1.7 mmol/L (0.4-2.0) Calcium Level 11.1 mg/dL (8.5-10.1) 10.6 mg/dL (8.5-10.1) Magnesium Level 2.1 mg/dL (1.8-2.4) Total Bilirubin 1.2 mg/dL (0.2-1.0) Aspartate Amino Transf (AST/SGOT) 26 U/L (15-37) Alanine Aminotransferase (ALT/SGPT) 30 U/L (14-59) Alkaline Phosphatase 178 U/L (46-116) Troponin I Quantitative < 0.017 ng/mL (0.000-0.055) WC-Wpm-R-Type Natriuretic Peptide 53139 pg/mL (0-449) Total Protein 10.2 g/dL (6.4-8.2) Albumin 3.6 g/dL (3.4-5.0) Albumin/Globulin Ratio 0.5 (1.0-1.7) Procalcitonin 7.19 ng/mL (0.00-0.10) Nasal Screen MRSA (PCR) Negative (Negative) Clostridium difficile Toxin (PCR) Negative (Negative) Laboratory Tests Test 11/23/17 13:15 Clostridium difficile Toxin (PCR) Negative (Negative) Microbiology 11/22/17 Blood Culture - Preliminary, Resulted NO GROWTH AFTER 1 DAY Medications Current Medications Levofloxacin/ Dextrose 150 ml @ 100 mls/hr Q24H IV Last administered on at 20:36; Start 11/22/17 at 20:00; Stop 11/23/17 at 00:00; Status DC Piperacillin Sod/ Tazobactam Sod 4.5 gm/Sodium Chloride 100 ml @ 200 mls/hr Q6HRS IV Last administered on 11/22/17at 23:16; Start 11/23/17 at 00:00; Stop 11/23/17 at 00:29; Status DC Acetaminophen (Tylenol) 1,000 mg 1X ONCE PO Last administered on 11/22/17at 21 :48; Start 11/22/17 at 21:30; Stop 11/22/17 at 21:31; Status DC Sodium Chloride 500 ml @ 500 mls/hr 1X ONCE IV Last administered on at 21:49; Start 11/22/17 at 21:30; Stop 11/22/17 at 22:29; Status DC Ondansetron HCl (Zofran) 4 mg PRN Q8HRS PRN IV NAUSEA/VOMITING 1ST CHOICE; Start 11/22/17 at 21:30; Stop 11/23/17 at 21:29; Status DC Fentanyl Citrate (Fentanyl 2ml Vial) 50 mcg PRN Q2HR PRN IV SEVERE PAIN Last administered on 11/23/17at 05:05; Start 11/22/17 at 21:30; Stop 11/23/17 at 21 :29; Status DC Acetaminophen (Tylenol) 650 mg PRN Q4HRS PRN PO FEVER Last administered on 01/29at 09:57; Start 11/22/17 at 21:30; Stop 11/23/17 at 21:29; Status DC Piperacillin Sod/ Tazobactam Sod 2.25 gm/Sodium Chloride 50 ml @ 100 mls/hr Q8HRS IV Last administered on 11/23/17at 04:58; Start 11/23/17 at 06:00; Stop 11/23/17 at 11:56; Status DC Levofloxacin/ Dextrose 100 ml @ 100 mls/hr Q48H IV ; Start 11/24/17 at 21:00 Potassium Chloride (Klor-Con) 40 meq 1X ONCE PO Last administered on at 09:04; Start 11/23/17 at 09:00; Stop 11/23/17 at 09:03; Status DC Acetaminophen (Tylenol Supp) 650 mg PRN Q6HRS PRN MI HEADACHE / TEMP; Start at 10:45 Cinacalcet (Sensipar) 30 mg HS PO Last administered on 11/23/17at 20:25; Start 11/23/17 at 21:00 Diphenoxylate HCl/ Atropine (Lomotil) 1 tab PRN Q8HRS PRN PO DIARRHEA; Start 11/23/17 at 10:45 Vitamin B Complex/ Vitamin C (Yaneth-Nabeel) 1 tab DAILY PO Last administered on at 08:45; Start 11/23/17 at 11:00 Acetaminophen/ Hydrocodone Bitart (Lortab 7.5/325) 1 tab PRN Q8HRS PRN PO PAIN MODERATE Last administered on 11/24/17at 09:08; Start 11/23/17 at 10:45 Artificial Tears (Artificial Tears) 1 drop PRN Q15MIN PRN OU DRY EYE; Start at 10:45 Triamcinolone Acetonide (Kenalog) 1 hanh PRN Q8HRS PRN TP ITCHING; Start at 10:45 Midodrine (Proamatine) 5 mg [id number] PO Last administered on 11/24/17at 05:40; Start 11/23/17 at 13:00 Multivitamins (Thera M Plus) 1 tab DAILY PO Last administered on 11/24/17at 08: 45; Start 11/23/17 at 12:00 Sulfasalazine (Azulfidine) 500 mg BID PO Last administered on 11/24/17at 08:45 ; Start 11/23/17 at 21:00 Daptomycin 310 mg/ Sodium Chloride 50 ml @ 100 mls/hr QODAY IV Last administered on 11/23/17at 17:56; Start 11/23/17 at 14:00 Ceftaroline Fosamil 200 mg/ Sodium Chloride 250 ml @ 250 mls/hr Q12HR IV Last administered on 11/24/17at 09:00; Start 11/23/17 at 13:00 Sodium Chloride 1,000 ml @ 1,000 mls/hr Q1H PRN IV hypotension; Start at 12:45; Stop 11/23/17 at 18:44; Status DC Sodium Chloride (Normal Saline Flush) 10 ml 1X PRN PRN IV AP catheter pack; Start 11/23/17 at 12:45; Stop 11/24/17 at 12:44 Sodium Chloride (Normal Saline Flush) 10 ml 1X PRN PRN IV FREIGHT FORWARDER catheter pack; Start 11/23/17 at 12:45; Stop 11/24/17 at 12:44 Sodium Chloride 1,000 ml @ 400 mls/hr Q2H30M PRN IV PATENCY; Start 11/23/17 at 12:45; Stop 11/24/17 at 00:44; Status DC Info (PHARMACY MONITORING -- do not chart) 1 each PRN DAILY PRN MC SEE COMMENTS ; Start 11/23/17 at 12:45; Status UNV Info (PHARMACY MONITORING -- do not chart) 1 each PRN DAILY PRN MC SEE COMMENTS ; Start 11/23/17 at 12:45 Fentanyl Citrate (Fentanyl 2ml Vial) 50 mcg PRN Q2HR PRN IV SEVERE PAIN Last administered on 11/24/17at 00:38; Start 11/24/17 at 00:30 Active Scripts Active Artificial Tears (Polyvinyl Alcohol) 15 Ml Drops 1 Drop OU PRN Q15MIN PRN 30 Days Acetaminophen Supp (Acetaminophen) 650 Mg Supp.rect 650 Mg [place] PRN Q6HRS PRN 30 Days Hydrocodone-Apap 7.5-325 (Hydrocodone Bit/Acetaminophen) 1 Each Tablet 1 Tab PO PRN Q8HRS PRN 7 Days Reported Multivitamins (Multivitamin) 1 Each Tablet 1 Tab PO DAILY Sensipar (Cinacalcet Hcl) 30 Mg Tablet 1 Tab PO HS Azulfidine (Sulfasalazine) 500 Mg Tablet 500 Mg PO BID Lomotil Tablet (Diphenoxylate Hcl/Atropine) 1 Each Tablet 1 Tab PO PRN Q8HRS Nephro-Nabeel Tablet (Folic Acid/Vitamin B Comp W-C) 0.8 Mg Tablet 1 Tab PO DAILY Triamcinolone Acetonide 0.1% Cream (Triamcinolone Acetonide) 15 Gm Cream..g. 1 Hanh TP PRN Q8HRS apply to bilat legs topically as needed for skin care Midodrine Hcl 5 Mg Tablet 5 Mg PO TID notify PCP if BP >180/110, P <60 Vitals/I & O Vital Sign - Last 24 Hours 11/23/17 11/23/17 11/23/17 11/23/17 12:16 12:17 13:17 17:56 Pulse 88 88 Resp 20 20 B/P (MAP) 80/49 80/49 Pulse Ox 100 O2 Delivery Nasal Cannula O2 Flow Rate 4.0 11/23/17 11/23/17 11/23/17 11/23/17 19:00 19:52 20:25 21:25 Temp 98.1 98.1 Pulse 96 Resp 18 B/P (MAP) 87/50 (62) Pulse Ox 95 100 100 O2 Delivery Nasal Cannula Nasal Cannula Nasal Cannula O2 Flow Rate 3.0 4.0 4.0 4.0 11/23/17 11/24/17 11/24/17 11/24/17 23:00 00:38 01:08 03:00 Temp 98.1 98.3 98.1 98.3 Pulse 97 90 Resp 18 18 B/P (MAP) 84/46 (59) 93/55 (68) Pulse Ox 95 95 95 94 O2 Delivery Nasal Cannula Nasal Cannula Nasal Cannula Nasal Cannula O2 Flow Rate 3.0 3.0 3.0 3.0 11/24/17 11/24/17 11/24/17 11/24/17 05:40 07:00 08:00 09:08 Temp 97.6 97.6 Pulse 90 90 Resp 18 B/P (MAP) 93/55 77/45 (56) Pulse Ox 100 O2 Delivery Nasal Cannula Nasal Cannula Nasal Cannula O2 Flow Rate 3.0 4.0 3.0 11/24/17 11/24/17 10:08 11:00 Temp 98.6 98.6 Pulse 88 Resp 18 B/P (MAP) 74/45 (55) Pulse Ox 99 O2 Delivery Nasal Cannula Nasal Cannula O2 Flow Rate 3.0 Intake and Output 11/23/17 11/23/17 11/24/17 15:00 23:00 07:00 Intake Total 660 ml 180 ml Output Total 1550 ml 650 ml Balance 660 ml -1370 ml -650 ml CASTLE,NIAL K III DO Nov 24, 2017 11:37
--- NOTE | 2017-11-24 14:36 | PDOC ---
Infectious Disease Note Subjective Subjective Feeling pretty good Denies N/V/cramps No F/C/S/aches/SOB ROS ROS per HPI otherwise neg Vital Sign Vital Signs Vital Signs Date Time Temp Pulse Resp B/P (MAP) Pulse Ox O2 Delivery O2 Flow Rate FiO2 11/24/17 12:33 88 74/45 11/24/17 11:00 98.6 18 99 Nasal Cannula 3.0 98.6 Physical Exam PHYSICAL EXAM GENERAL: Sitting in the chair, alert, smiling, conversant HEENT: Oral cavity dry. Dentures. no conjunc petechia LUNGS: Clear HEART: S1, S2. ABDOMEN: Soft. BS +. Ostomy, nontender EXTREMITIES: Left BKA, stump. Right lateral leg wound. 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 Tunneled HDC (11/16) w/o signs of complications Labs Micro Microbiology 11/23/17 Blood Culture - Preliminary, Resulted NO GROWTH AFTER 1 DAY Objective Assessment Sepsis GPC from 11/21 POA on Vanc for MRSA bacteremia from previous admission -Repeat BC from 1012 NGTD Hypotension Right basilar atelectasis versus infiltrate H/O High grade MRSA bacteremia previous admission from 10/31. source infected HD cath,s/p removal. Discharged on vanc -Repeat BC on 11/02, 11/04 & 11/08 positive. BC 11/13 negative -ECHO without evidence of veg H/O infected right HDC cath s/p removal on 11/01 + MRSA. -s/p interval placement of a temp [facility]J/HDC on 11/01; removed. -s/p Tunneled HDC placement on 11/16. Leukocytosis Resp failure w/ pleural effusion s/p thoracentesis 11/07 with 1/1 liter removed pH 7.51. 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 C. diff neg 11/22 Plan Plan of Care Daptomycin and ceftaroline cont empiric Levaquin for now f/u cultures Dw RN Records from [facility] have MSSA bacteremia and no antibiotics on med sheet listed Tried to clarify with facility. There was no one available to speak with me at this time. Left name and number. Contacted [facility] from 11/21 reportedly grew MRSA Patient got vanc post-dialysis Copy of micro results requested Attending Co-Sign The patient was seen and interviewed as well as examined at the bedside. The chart was reviewed. The case was discussed. Agree with the plan of care. HARSH IVAN APRN Nov 24, 2017 14:36 DOMONIQUE HARDEN MD Nov 24, 2017 15:22
[2017-11-24 15:00] VITALS: BP 78/46
[2017-11-24 19:00] VITALS: BP 84/48
[2017-11-24] MEDS: CINACALCET HCL 30 MG TABLET PO SCH (20:33)
[2017-11-24 23:02] VITALS: BP 88/52
[2017-11-25 03:03] VITALS: BP 83/53
[2017-11-25] MEDS: MIDODRINE 5 MG TABLET PO SCH ×3 (05:06→18:53)
[2017-11-25] MEDS: fentaNYL PF VIAL 100 MCG/2 ML VIAL IV PRN ×2 (05:06→23:15)
[2017-11-25 07:00] VITALS: BP 82/44
[2017-11-25] MEDS: DIPHENOXYLATE/ATROPINE TABLET. PO PRN (07:43)
[2017-11-25] MEDS: sulfaSALAzine 500 MG TABLET PO SCH ×2 (07:43→20:43)
[2017-11-25] MEDS: MULTIVITAMIN with MINERAL TABLET. PO SCH (07:43)
[2017-11-25] MEDS: FOLIC/VIT B COMP W-C (RENAL) TABLET. PO SCH (07:43)
[2017-11-25] MEDS: HYDROcodone/APAP 7.5/325MG 1 TAB TABLET PO PRN ×2 (08:45→20:43)
--- NOTE | 2017-11-25 09:04 | PDOC ---
PULMONARY PROGRESS NOTES Subjective feels better, sob better,no cough, no pain, is hungry Vitals Vital Signs Date Time Temp Pulse Resp B/P (MAP) Pulse Ox O2 Delivery O2 Flow Rate FiO2 11/25/17 08:45 20 92 Nasal Cannula 3.0 11/25/17 07:00 96.8 69 82/44 (57) 96.8 ROS: No Nausea General: Alert, No acute distress HEENT: Other (nc at perrl ) Lungs: Crackles Cardiovascular: S1, S2 Abdomen: Soft, Non-tender Neuro Exam: Alert Extremities: Other (l bka) Skin: Warm Labs Laboratory Tests Test 11/23/17 13:15 Clostridium difficile Toxin (PCR) Negative (Negative) Medications Active Scripts Medications Dose Route/Sig Max Daily Dose Days Date Category Dose Instructions Multivitamins (Multivitamin) 1 Each Tablet 1 Tab PO DAILY 11/23/17 Reported Artificial Tears (Polyvinyl Alcohol) 15 Ml Drops 1 Drop OU PRN Q15MIN PRN 30 11/16/17 Rx Acetaminophen Supp (Acetaminophen) 650 Mg Supp.rect 650 Mg [place] PRN Q6HRS PRN 30 11/16/17 Rx Hydrocodone-Apap 7.5-325 (Hydrocodone Bit/Acetaminophen) 1 Each Tablet 1 Tab PO PRN Q8HRS PRN 7 11/16/17 Rx Sensipar (Cinacalcet Hcl) 30 Mg Tablet 1 Tab PO HS 11/03/17 Reported Azulfidine (Sulfasalazine) 500 Mg Tablet 500 Mg PO BID 11/03/17 Reported Lomotil Tablet (Diphenoxylate Hcl/Atropine) 1 Each Tablet 1 Tab PO PRN Q8HRS 11/03/17 Reported Nephro-Nabeel Tablet (Folic Acid/Vitamin B Comp W-C) 0.8 Mg Tablet 1 Tab PO DAILY 10/31/17 Reported Triamcinolone Acetonide 0.1% Cream (Triamcinolone Acetonide) 15 Gm Cream..g. 1 Hanh TP PRN Q8HRS 10/31/17 Reported apply to bilat legs topically as needed for skin care Midodrine Hcl 5 Mg Tablet 5 Mg PO TID 10/31/17 Reported notify PCP if BP >180/110, P <60 Impression . IMPRESSION: 1. Abnormal x-ray revealing small right-sided effusion. The patient is status post bilateral thoracentesis back on November 07. Cultures are negative transudative effusion. 2. History of methicillin-resistant Staphylococcus aureus bacteremia, previous admission from 10/31/2017, the source was hemodialyzed catheter. 3. Atrial fibrillation. 4. End-stage renal disease. 5. Anemia. 6. Chronic lateral right leg nonhealing wound. 7. Hypotension, improved. Plan . PLAN: 1. Pulmonary status appears to be compensated. No signs of pulmonary infection. will monitor closely. 2. cont abx per id 3. Hemodialysis per Nephrology. 4. Suspect hypotension related to intravascular volume depletion. fluid per nephro discussed w pt CM CATALAN MD Nov 25, 2017 09:04
[2017-11-25 09:31] LABS: BASO # 0.1 x10^3/uL (0.0-0.2); BASO % 1 % (0-3); EOS # 0.5 x10^3/uL (0.0-0.7); EOS % 5 % (0-3); HEMATOCRIT 23.1 % (36.0-47.0); HEMOGLOBIN 7.4 g/dL (12.0-15.5); LYMPH # 1.4 x10^3/uL (1.0-4.8); LYMPH % 14 % (24-48); MEAN CORPUSCULAR HEMOGLOBIN 27 pg (25-35); MEAN CORPUSCULAR HGB CONC 32 g/dL (31-37); MEAN CORPUSCULAR VOLUME 83 fL (79-100); MONO # 1.5 x10^3/uL (0.0-1.1); MONO % 15 % (0-9); NEUT # 6.8 x10^3uL (1.8-7.7); NEUT % 66 % (31-73); PLATELET COUNT 450 x10^3/uL (140-400); RED BLOOD COUNT 2.77 x10^6/uL (3.50-5.40); RED CELL DISTRIBUTION WIDTH 20.6 % (11.5-14.5); WHITE BLOOD COUNT 10.4 x10^3/uL (4.0-11.0)
[2017-11-25] MEDS: NORMAL SALINE IV SCH ×5 (09:39→20:43)
[2017-11-25] MEDS: DAPTOMYCIN IV SCH (09:39)
[2017-11-25 09:43] LABS: CREATININE 4.4 mg/dL (0.6-1.0); GFR 11.8; POTASSIUM 3.7 mmol/L (3.5-5.1)
[2017-11-25] MEDS: CEFTAROLINE FOSAMIL IV SCH ×4 (10:15→20:43)
--- NOTE | 2017-11-25 10:58 | PDOC ---
Infectious Disease Note Subjective Subjective Comfortable Feeling pretty good Denies N/V/cramps No F/C/S/aches/SOB ROS ROS per HPI otherwise neg Vital Sign Vital Signs Vital Signs Date Time Temp Pulse Resp B/P (MAP) Pulse Ox O2 Delivery O2 Flow Rate FiO2 11/25/17 09:45 18 92 Nasal Cannula 3.0 11/25/17 07:00 96.8 69 82/44 (57) 96.8 Physical Exam PHYSICAL EXAM GENERAL: Propped up in bed, alert, NAD HEENT: Oral cavity dry. Dentures. no conjunc petechia LUNGS: Clear HEART: S1, S2. ABDOMEN: Soft. BS +. Ostomy, nontender EXTREMITIES: Left BKA, stump. Right lateral leg wound. 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 Tunneled HDC (11/16) w/o signs of complications PIV right foot Labs Lab Laboratory Tests Test 11/25/17 08:25 White Blood Count 10.4 x10^3/uL (4.0-11.0) Red Blood Count 2.77 x10^6/uL (3.50-5.40) Hemoglobin 7.4 g/dL (12.0-15.5) Hematocrit 23.1 % (36.0-47.0) Mean Corpuscular Volume 83 fL (79-100) Mean Corpuscular Hemoglobin 27 pg (25-35) Mean Corpuscular Hemoglobin Concent 32 g/dL (31-37) Red Cell Distribution Width 20.6 % (11.5-14.5) Platelet Count 450 x10^3/uL (140-400) Neutrophils (%) (Auto) 66 % (31-73) Lymphocytes (%) (Auto) 14 % (24-48) Monocytes (%) (Auto) 15 % (0-9) Eosinophils (%) (Auto) 5 % (0-3) Basophils (%) (Auto) 1 % (0-3) Neutrophils # (Auto) 6.8 x10^3uL (1.8-7.7) Lymphocytes # (Auto) 1.4 x10^3/uL (1.0-4.8) Monocytes # (Auto) 1.5 x10^3/uL (0.0-1.1) Eosinophils # (Auto) 0.5 x10^3/uL (0.0-0.7) Basophils # (Auto) 0.1 x10^3/uL (0.0-0.2) Sodium Level 140 mmol/L (136-145) Potassium Level 3.7 mmol/L (3.5-5.1) Chloride Level 101 mmol/L (98-107) Carbon Dioxide Level 25 mmol/L (21-32) Anion Gap 14 (6-14) Blood Urea Nitrogen 20 mg/dL (7-20) Creatinine 4.4 mg/dL (0.6-1.0) Estimated GFR (Cockcroft-Gault) 11.8 Glucose Level 96 mg/dL (70-99) Calcium Level 9.0 mg/dL (8.5-10.1) Micro Blood cultures 11/22 & NGTD Lower leg ANAEROBIC RES 1 PENDING AEROBIC CULT PENDING GRAM STAIN RES 1 Final No white blood cells seen. GRAM STAIN RES 2 Final No organisms seen Objective Assessment Sepsis MRSA from 11/21 POA ([facility]) while on Vanc for MRSA bacteremia from previous admission -Repeat BC from 11/22 & NGTD Hypotension Right basilar atelectasis versus infiltrate H/O High grade MRSA bacteremia previous admission from 10/31. source infected HD cath,s/p removal. Discharged on vanc -Repeat BC on 11/02, 11/04 & 11/08 positive. BC 11/13 negative -ECHO without evidence of veg H/O infected right HDC cath s/p removal on 11/01 + MRSA. -s/p interval placement of a temp [facility]/HDC on 11/01; removed. -s/p Tunneled HDC placement on 11/16. Leukocytosis Resp failure w/ pleural effusion s/p thoracentesis 11/07 with 1/1 liter removed pH 7.51. 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 C. diff neg 11/22 Plan Plan of Care Daptomycin and ceftaroline cont empiric Levaquin for now Repeat BC NGTD May need PHILIP D/w RN Attending Co-Sign The patient was seen and interviewed as well as examined at the bedside. The chart was reviewed. The case was discussed. Agree with the plan of care. HARSH IVAN APRN Nov 25, 2017 10:58 DOMONIQUE HARDEN MD Nov 25, 2017 14:25
[2017-11-25 11:22] VITALS: BP 82/48
--- NOTE | 2017-11-25 13:42 | PDOC ---
PROGRESS NOTES Chief Complaint Chief Complaint Pneumonia Ischemic neuropathy of foot leukocytosis End Stage Renal Disease possible c. diff History of Present Illness History of Present Illness pt seen and examine, pt has left leg sore and pt is complaining of pain in her left heel and big toe. pt was pleasantly confused VSS dw/ RN Vitals Vitals Vital Signs Date Time Temp Pulse Resp B/P (MAP) Pulse Ox O2 Delivery O2 Flow Rate FiO2 11/25/17 11:22 98.5 75 17 82/48 (59) 98 Room Air 98.5 11/25/17 09:45 3.0 Physical Exam Physical Exam GENERAL: Propped up in bed, alert, NAD HEENT: Oral cavity dry. Dentures. no conjunc petechia LUNGS: Clear HEART: S1, S2. ABDOMEN: Soft. BS +. Ostomy, nontender EXTREMITIES: Left BKA, stump. Right lateral leg wound. 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 Tunneled HDC (11/16) w/o signs of complications PIV right foot General: Alert, No acute distress Heart: Normal S1, Normal S2 Lungs: Crackles Extremities: No clubbing, No cyanosis Skin: No rashes, No breakdown Labs LABS Laboratory Tests Test 11/25/17 08:25 White Blood Count 10.4 x10^3/uL (4.0-11.0) Red Blood Count 2.77 x10^6/uL (3.50-5.40) Hemoglobin 7.4 g/dL (12.0-15.5) Hematocrit 23.1 % (36.0-47.0) Mean Corpuscular Volume 83 fL (79-100) Mean Corpuscular Hemoglobin 27 pg (25-35) Mean Corpuscular Hemoglobin Concent 32 g/dL (31-37) Red Cell Distribution Width 20.6 % (11.5-14.5) Platelet Count 450 x10^3/uL (140-400) Neutrophils (%) (Auto) 66 % (31-73) Lymphocytes (%) (Auto) 14 % (24-48) Monocytes (%) (Auto) 15 % (0-9) Eosinophils (%) (Auto) 5 % (0-3) Basophils (%) (Auto) 1 % (0-3) Neutrophils # (Auto) 6.8 x10^3uL (1.8-7.7) Lymphocytes # (Auto) 1.4 x10^3/uL (1.0-4.8) Monocytes # (Auto) 1.5 x10^3/uL (0.0-1.1) Eosinophils # (Auto) 0.5 x10^3/uL (0.0-0.7) Basophils # (Auto) 0.1 x10^3/uL (0.0-0.2) Sodium Level 140 mmol/L (136-145) Potassium Level 3.7 mmol/L (3.5-5.1) Chloride Level 101 mmol/L (98-107) Carbon Dioxide Level 25 mmol/L (21-32) Anion Gap 14 (6-14) Blood Urea Nitrogen 20 mg/dL (7-20) Creatinine 4.4 mg/dL (0.6-1.0) Estimated GFR (Cockcroft-Gault) 11.8 Glucose Level 96 mg/dL (70-99) Calcium Level 9.0 mg/dL (8.5-10.1) Review of Systems Review of Systems CO fatigue CO chills Assessment and Plan Assessmemt and Plan Problems Medical Problems: (1) End stage renal disease Status: Acute (2) Fever Status: Acute (3) Leukocytosis Status: Acute Pneumonia Ischemic neuropathy of foot leukocytosis End Stage Renal Disease possible c. diff Plan: IV Abx Breathing treatments Home Meds Labs Wound Care Consult Palliative (senior care prognosis is guarded) Comment Review of Relevant I have reviewed the following items olivia (where applicable) has been applied. Labs Laboratory Tests Test 11/25/17 08:25 White Blood Count 10.4 x10^3/uL (4.0-11.0) Red Blood Count 2.77 x10^6/uL (3.50-5.40) Hemoglobin 7.4 g/dL (12.0-15.5) Hematocrit 23.1 % (36.0-47.0) Mean Corpuscular Volume 83 fL (79-100) Mean Corpuscular Hemoglobin 27 pg (25-35) Mean Corpuscular Hemoglobin Concent 32 g/dL (31-37) Red Cell Distribution Width 20.6 % (11.5-14.5) Platelet Count 450 x10^3/uL (140-400) Neutrophils (%) (Auto) 66 % (31-73) Lymphocytes (%) (Auto) 14 % (24-48) Monocytes (%) (Auto) 15 % (0-9) Eosinophils (%) (Auto) 5 % (0-3) Basophils (%) (Auto) 1 % (0-3) Neutrophils # (Auto) 6.8 x10^3uL (1.8-7.7) Lymphocytes # (Auto) 1.4 x10^3/uL (1.0-4.8) Monocytes # (Auto) 1.5 x10^3/uL (0.0-1.1) Eosinophils # (Auto) 0.5 x10^3/uL (0.0-0.7) Basophils # (Auto) 0.1 x10^3/uL (0.0-0.2) Sodium Level 140 mmol/L (136-145) Potassium Level 3.7 mmol/L (3.5-5.1) Chloride Level 101 mmol/L (98-107) Carbon Dioxide Level 25 mmol/L (21-32) Anion Gap 14 (6-14) Blood Urea Nitrogen 20 mg/dL (7-20) Creatinine 4.4 mg/dL (0.6-1.0) Estimated GFR (Cockcroft-Gault) 11.8 Glucose Level 96 mg/dL (70-99) Calcium Level 9.0 mg/dL (8.5-10.1) Laboratory Tests Test 11/25/17 08:25 White Blood Count 10.4 x10^3/uL (4.0-11.0) Red Blood Count 2.77 x10^6/uL (3.50-5.40) Hemoglobin 7.4 g/dL (12.0-15.5) Hematocrit 23.1 % (36.0-47.0) Mean Corpuscular Volume 83 fL (79-100) Mean Corpuscular Hemoglobin 27 pg (25-35) Mean Corpuscular Hemoglobin Concent 32 g/dL (31-37) Red Cell Distribution Width 20.6 % (11.5-14.5) Platelet Count 450 x10^3/uL (140-400) Neutrophils (%) (Auto) 66 % (31-73) Lymphocytes (%) (Auto) 14 % (24-48) Monocytes (%) (Auto) 15 % (0-9) Eosinophils (%) (Auto) 5 % (0-3) Basophils (%) (Auto) 1 % (0-3) Neutrophils # (Auto) 6.8 x10^3uL (1.8-7.7) Lymphocytes # (Auto) 1.4 x10^3/uL (1.0-4.8) Monocytes # (Auto) 1.5 x10^3/uL (0.0-1.1) Eosinophils # (Auto) 0.5 x10^3/uL (0.0-0.7) Basophils # (Auto) 0.1 x10^3/uL (0.0-0.2) Sodium Level 140 mmol/L (136-145) Potassium Level 3.7 mmol/L (3.5-5.1) Chloride Level 101 mmol/L (98-107) Carbon Dioxide Level 25 mmol/L (21-32) Anion Gap 14 (6-14) Blood Urea Nitrogen 20 mg/dL (7-20) Creatinine 4.4 mg/dL (0.6-1.0) Estimated GFR (Cockcroft-Gault) 11.8 Glucose Level 96 mg/dL (70-99) Calcium Level 9.0 mg/dL (8.5-10.1) Microbiology 11/23/17 Blood Culture - Preliminary, Resulted NO GROWTH AFTER 2 DAYS 11/23/17 Anaerobic/Aerobic Culture, Resulted Pending 11/23/17 Anaerobic Culture Result 1 (PARTH), Resulted Pending 11/23/17 Aerobic Culture, Resulted Pending 11/23/17 Aerobic Culture Result 1 (PARTH), Resulted Pending 11/23/17 Gram Stain - Final, Resulted 11/23/17 Gram Stain Result 1 (PARTH) - Final, Resulted 11/23/17 Gram Stain Result 2 (PARTH) - Final, Resulted Medications Current Medications Levofloxacin/ Dextrose 150 ml @ 100 mls/hr Q24H IV Last administered on at 20:36; Start 11/22/17 at 20:00; Stop 11/23/17 at 00:00; Status DC Piperacillin Sod/ Tazobactam Sod 4.5 gm/Sodium Chloride 100 ml @ 200 mls/hr Q6HRS IV Last administered on 11/22/17at 23:16; Start 11/23/17 at 00:00; Stop 11/23/17 at 00:29; Status DC Acetaminophen (Tylenol) 1,000 mg 1X ONCE PO Last administered on 11/22/17at 21 :48; Start 11/22/17 at 21:30; Stop 11/22/17 at 21:31; Status DC Sodium Chloride 500 ml @ 500 mls/hr 1X ONCE IV Last administered on at 21:49; Start 11/22/17 at 21:30; Stop 11/22/17 at 22:29; Status DC Ondansetron HCl (Zofran) 4 mg PRN Q8HRS PRN IV NAUSEA/VOMITING 1ST CHOICE; Start 11/22/17 at 21:30; Stop 11/23/17 at 21:29; Status DC Fentanyl Citrate (Fentanyl 2ml Vial) 50 mcg PRN Q2HR PRN IV SEVERE PAIN Last administered on 11/23/17at 05:05; Start 11/22/17 at 21:30; Stop 11/23/17 at 21 :29; Status DC Acetaminophen (Tylenol) 650 mg PRN Q4HRS PRN PO FEVER Last administered on 01/29at 09:57; Start 11/22/17 at 21:30; Stop 11/23/17 at 21:29; Status DC Piperacillin Sod/ Tazobactam Sod 2.25 gm/Sodium Chloride 50 ml @ 100 mls/hr Q8HRS IV Last administered on 11/23/17at 04:58; Start 11/23/17 at 06:00; Stop 11/23/17 at 11:56; Status DC Levofloxacin/ Dextrose 100 ml @ 100 mls/hr Q48H IV Last administered on at 00:00; Start 11/24/17 at 21:00 Potassium Chloride (Klor-Con) 40 meq 1X ONCE PO Last administered on at 09:04; Start 11/23/17 at 09:00; Stop 11/23/17 at 09:03; Status DC Acetaminophen (Tylenol Supp) 650 mg PRN Q6HRS PRN MD HEADACHE / TEMP; Start at 10:45 Cinacalcet (Sensipar) 30 mg HS PO Last administered on 11/24/17at 20:33; Start 11/23/17 at 21:00 Diphenoxylate HCl/ Atropine (Lomotil) 1 tab PRN Q8HRS PRN PO DIARRHEA Last administered on 11/25/17at 07:43; Start 11/23/17 at 10:45 Vitamin B Complex/ Vitamin C (Yaneth-Nabeel) 1 tab DAILY PO Last administered on at 07:43; Start 11/23/17 at 11:00 Acetaminophen/ Hydrocodone Bitart (Lortab 7.5/325) 1 tab PRN Q8HRS PRN PO PAIN MODERATE Last administered on 11/25/17at 08:45; Start 11/23/17 at 10:45 Artificial Tears (Artificial Tears) 1 drop PRN Q15MIN PRN OU DRY EYE; Start at 10:45 Triamcinolone Acetonide (Kenalog) 1 hanh PRN Q8HRS PRN TP ITCHING; Start at 10:45 Midodrine (Proamatine) 5 mg [id number] PO Last administered on 11/25/17at 05:06; Start 11/23/17 at 13:00 Multivitamins (Thera M Plus) 1 tab DAILY PO Last administered on 11/25/17at 07: 43; Start 11/23/17 at 12:00 Sulfasalazine (Azulfidine) 500 mg BID PO Last administered on 11/25/17at 07:43 ; Start 11/23/17 at 21:00 Daptomycin 310 mg/ Sodium Chloride 50 ml @ 100 mls/hr QODAY IV Last administered on 11/25/17at 09:39; Start 11/23/17 at 14:00 Ceftaroline Fosamil 200 mg/ Sodium Chloride 250 ml @ 250 mls/hr Q12HR IV Last administered on 11/25/17at 10:15; Start 11/23/17 at 13:00 Sodium Chloride 1,000 ml @ 1,000 mls/hr Q1H PRN IV hypotension; Start at 12:45; Stop 11/23/17 at 18:44; Status DC Sodium Chloride (Normal Saline Flush) 10 ml 1X PRN PRN IV AP catheter pack; Start 11/23/17 at 12:45; Stop 11/24/17 at 12:44; Status DC Sodium Chloride (Normal Saline Flush) 10 ml 1X PRN PRN IV 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; Start 11/23/17 at 12:45; Stop 11/24/17 at 12:44; Status DC Sodium Chloride 1,000 ml @ 400 mls/hr Q2H30M PRN IV PATENCY; Start 11/23/17 at 12:45; Stop 11/24/17 at 00:44; Status DC Info (PHARMACY MONITORING -- do not chart) 1 each PRN DAILY PRN MC SEE COMMENTS ; Start 11/23/17 at 12:45; Status UNV Info (PHARMACY MONITORING -- do not chart) 1 each PRN DAILY PRN MC SEE COMMENTS ; Start 11/23/17 at 12:45 Fentanyl Citrate (Fentanyl 2ml Vial) 50 mcg PRN Q2HR PRN IV SEVERE PAIN Last administered on 11/25/17at 05:06; Start 11/24/17 at 00:30 Active Scripts Active Artificial Tears (Polyvinyl Alcohol) 15 Ml Drops 1 Drop OU PRN Q15MIN PRN 30 Days Acetaminophen Supp (Acetaminophen) 650 Mg Supp.rect 650 Mg MD PRN Q6HRS PRN 30 Days Hydrocodone-Apap 7.5-325 (Hydrocodone Bit/Acetaminophen) 1 Each Tablet 1 Tab PO PRN Q8HRS PRN 7 Days Reported Multivitamins (Multivitamin) 1 Each Tablet 1 Tab PO DAILY Sensipar (Cinacalcet Hcl) 30 Mg Tablet 1 Tab PO HS Azulfidine (Sulfasalazine) 500 Mg Tablet 500 Mg PO BID Lomotil Tablet (Diphenoxylate Hcl/Atropine) 1 Each Tablet 1 Tab PO PRN Q8HRS Nephro-Nabeel Tablet (Folic Acid/Vitamin B Comp W-C) 0.8 Mg Tablet 1 Tab PO DAILY Triamcinolone Acetonide 0.1% Cream (Triamcinolone Acetonide) 15 Gm Cream..g. 1 Hanh TP PRN Q8HRS apply to bilat legs topically as needed for skin care Midodrine Hcl 5 Mg Tablet 5 Mg PO TID notify PCP if BP >180/110, P <60 Vitals/I & O Vital Sign - Last 24 Hours 11/24/17 11/24/17 11/24/17 11/24/17 15:00 17:45 17:45 19:00 Temp 98.6 97.4 98.6 97.4 Pulse 98 98 70 Resp 18 20 B/P (MAP) 78/46 (57) 78/46 84/48 (60) Pulse Ox 96 100 O2 Delivery Nasal Cannula Nasal Cannula Nasal Cannula O2 Flow Rate 3.0 11/24/17 11/24/17 11/25/17 11/25/17 19:40 23:02 03:03 05:06 Temp 97.4 96.8 97.4 96.8 Pulse 66 67 67 Resp 20 20 B/P (MAP) 88/52 (64) 83/53 (63) 83/53 Pulse Ox 100 92 O2 Delivery Nasal Cannula Nasal Cannula Nasal Cannula O2 Flow Rate 3.0 11/25/17 11/25/17 11/25/17 11/25/17 05:06 05:36 07:00 08:00 Temp 96.8 96.8 Pulse 69 Resp 16 B/P (MAP) 82/44 (57) Pulse Ox 92 92 99 O2 Delivery Nasal Cannula Nasal Cannula Nasal Cannula Nasal Cannula O2 Flow Rate 3.0 3.0 3.0 11/25/17 11/25/17 11/25/17 08:45 09:45 11:22 Temp 98.5 98.5 Pulse 75 Resp 20 18 17 B/P (MAP) 82/48 (59) Pulse Ox 92 92 98 O2 Delivery Nasal Cannula Nasal Cannula Room Air O2 Flow Rate 3.0 3.0 Intake and Output 11/24/17 11/24/17 11/25/17 15:00 23:00 07:00 Intake Total 1080 ml 580 ml Output Total 700 ml 250 ml 400 ml Balance 380 ml 330 ml -400 ml PORSCHE MCMAHAN III DO Nov 25, 2017 13:42
[2017-11-25 15:00] VITALS: BP 89/52
[2017-11-25 19:00] VITALS: BP 85/49
[2017-11-25] MEDS: CINACALCET HCL 30 MG TABLET PO SCH (20:43)
[2017-11-25 23:02] VITALS: BP 76/42
[2017-11-26] VITALS (13 sets, daily range): BP systolic 70–105; BP diastolic 22–65
[2017-11-26 04:12] LABS: BASO # 0.1 x10^3/uL (0.0-0.2); BASO % 1 % (0-3); EOS # 0.4 x10^3/uL (0.0-0.7); EOS % 4 % (0-3); HEMATOCRIT 21.1 % (36.0-47.0); LYMPH # 1.9 x10^3/uL (1.0-4.8); LYMPH % 17 % (24-48); MEAN CORPUSCULAR HEMOGLOBIN 27 pg (25-35); MEAN CORPUSCULAR HGB CONC 32 g/dL (31-37); MEAN CORPUSCULAR VOLUME 83 fL (79-100); MONO # 1.4 x10^3/uL (0.0-1.1); MONO % 13 % (0-9); NEUT # 7.4 x10^3uL (1.8-7.7); NEUT % 66 % (31-73); PLATELET COUNT 415 x10^3/uL (140-400); RED BLOOD COUNT 2.55 x10^6/uL (3.50-5.40); RED CELL DISTRIBUTION WIDTH 20.5 % (11.5-14.5); WHITE BLOOD COUNT 11.1 x10^3/uL (4.0-11.0)
[2017-11-26 04:15] LABS: HEMOGLOBIN 6.8 g/dL (12.0-15.5)
[2017-11-26 04:23] LABS: CALCIUM 8.7 mg/dL (8.5-10.1); CREATININE 5.6 mg/dL (0.6-1.0); POTASSIUM 3.3 mmol/L (3.5-5.1)
[2017-11-26] MEDS: MIDODRINE 5 MG TABLET PO SCH ×3 (06:09→17:08)
[2017-11-26] MEDS: fentaNYL PF VIAL 100 MCG/2 ML VIAL IV PRN (06:09)
[2017-11-26] MEDS: NORMAL SALINE IV SCH ×2 (08:41→20:55)
[2017-11-26] MEDS: CEFTAROLINE FOSAMIL IV SCH ×2 (08:41→20:55)
[2017-11-26] MEDS: sulfaSALAzine 500 MG TABLET PO SCH ×2 (08:48→20:55)
[2017-11-26] MEDS: FOLIC/VIT B COMP W-C (RENAL) TABLET. PO SCH (08:48)
[2017-11-26] MEDS: MULTIVITAMIN with MINERAL TABLET. PO SCH (08:49)
[2017-11-26] MEDS: HYDROcodone/APAP 7.5/325MG 1 TAB TABLET PO PRN ×2 (08:50→17:08)
[2017-11-26] MEDS ORDERED: IV NORMAL SALINE 1000ML BAG 1,000 ML IV PRN ×2 (11:31)
--- NOTE | 2017-11-26 11:40 | PDOC ---
Infectious Disease Note Subjective Subjective Comfortable Feeling pretty good Denies N/V/cramps No F/C/S/aches/SOB ROS ROS o/w neg Vital Sign Vital Signs Vital Signs Date Time Temp Pulse Resp B/P (MAP) Pulse Ox O2 Delivery O2 Flow Rate FiO2 11/26/17 09:50 20 92 Nasal Cannula 3.0 11/26/17 08:49 74 105/65 11/26/17 07:00 97.4 97.4 Physical Exam PHYSICAL EXAM GENERAL: Propped up in bed, alert, NAD - in HD HEENT: Oral cavity dry. Dentures. no conjunc petechia LUNGS: Clear HEART: S1, S2. ABDOMEN: Soft. BS +. Ostomy, nontender EXTREMITIES: Left BKA, stump. Right lateral leg wound. 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 Tunneled HDC (11/16) w/o signs of complications PIV right foot Labs Lab Laboratory Tests Test 11/26/17 03:25 White Blood Count 11.1 x10^3/uL (4.0-11.0) Red Blood Count 2.55 x10^6/uL (3.50-5.40) Hemoglobin 6.8 g/dL (12.0-15.5) Hematocrit 21.1 % (36.0-47.0) Mean Corpuscular Volume 83 fL (79-100) Mean Corpuscular Hemoglobin 27 pg (25-35) Mean Corpuscular Hemoglobin Concent 32 g/dL (31-37) Red Cell Distribution Width 20.5 % (11.5-14.5) Platelet Count 415 x10^3/uL (140-400) Neutrophils (%) (Auto) 66 % (31-73) Lymphocytes (%) (Auto) 17 % (24-48) Monocytes (%) (Auto) 13 % (0-9) Eosinophils (%) (Auto) 4 % (0-3) Basophils (%) (Auto) 1 % (0-3) Neutrophils # (Auto) 7.4 x10^3uL (1.8-7.7) Lymphocytes # (Auto) 1.9 x10^3/uL (1.0-4.8) Monocytes # (Auto) 1.4 x10^3/uL (0.0-1.1) Eosinophils # (Auto) 0.4 x10^3/uL (0.0-0.7) Basophils # (Auto) 0.1 x10^3/uL (0.0-0.2) Sodium Level 139 mmol/L (136-145) Potassium Level 3.3 mmol/L (3.5-5.1) Chloride Level 102 mmol/L (98-107) Carbon Dioxide Level 21 mmol/L (21-32) Anion Gap 16 (6-14) Blood Urea Nitrogen 28 mg/dL (7-20) Creatinine 5.6 mg/dL (0.6-1.0) Estimated GFR (Cockcroft-Gault) 9.0 Glucose Level 86 mg/dL (70-99) Calcium Level 8.7 mg/dL (8.5-10.1) Micro Microbiology 11/23/17 Blood Culture - Preliminary, Resulted NO GROWTH AFTER 2 DAYS 11/23/17 Anaerobic/Aerobic Culture, Resulted Pending 11/23/17 Anaerobic Culture Result 1 (PARTH), Resulted Pending 11/23/17 Aerobic Culture - Preliminary, Resulted 11/23/17 Aerobic Culture Result 1 (PARTH) - Preliminary, Resulted 11/23/17 Gram Stain - Final, Resulted 11/23/17 Gram Stain Result 1 (PARTH) - Final, Resulted 11/23/17 Gram Stain Result 2 (PARTH) - Final, Resulted Objective Assessment Sepsis MRSA from 11/21 POA ([facility]) while on Vanc for MRSA bacteremia from previous admission -Repeat BC from 11/22 & NGTD Hypotension Right basilar atelectasis versus infiltrate H/O High grade MRSA bacteremia previous admission from 10/31. source infected HD cath,s/p removal. Discharged on vanc -Repeat BC on 11/02, 11/04 & 11/08 positive. BC 11/13 negative -ECHO without evidence of veg H/O infected right HDC cath s/p removal on 11/01 + MRSA. -s/p interval placement of a temp LIJ/HDC on 11/01; removed. -s/p Tunneled HDC placement on 11/16. Leukocytosis Resp failure w/ pleural effusion s/p thoracentesis 11/07 with 1/1 liter removed pH 7.51. 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 C. 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
[2017-11-26] MEDS ORDERED: DIALYSIS PATIENT. MC PRN (11:45)
[2017-11-26] MEDS ORDERED: LIDOCAINE 2% TOPICAL JELLY 5GM TUBE. TP ONE (12:45)
[2017-11-26] MEDS ORDERED: 0.9 % SODIUM CHLORIDE 10 ML DISP.SYRIN. IV PRN (12:45)
[2017-11-26] MEDS ORDERED: LIDOCAINE 2% VISCOUS 15 ML SOLUTION. MM ONE (12:45)
[2017-11-26] MEDS ORDERED: BENZOCAINE ONE 20% MUCOSAL SPRAY. MM (12:45)
--- NOTE | 2017-11-26 13:04 | PDOC ---
Provider Note Provider Note PHILIP requested by Dr. Rivero for MRSA, recurrent sepsis. Discussed procedure in detail with patient. R/b/a discussed with patient and she is agreeable. PHILIP scheduled for 11/27/17 at 12:30. JS Whiteside APRN Nov 26, 2017 13:04
--- NOTE | 2017-11-26 13:27 | PDOC ---
PROGRESS NOTES Chief Complaint Chief Complaint Sepsis MRSA from 11/21 POA ([facility]) while on Vanc for MRSA bacteremia from previous admission -Repeat BC from 11/22 & NGTD Hypotension on midodrine Right basilar atelectasis versus infiltrate H/O High grade MRSA bacteremia previous admission from 10/31. source infected HD cath,s/p removal. Discharged on vanc -Repeat BC on 11/02, 11/04 & 11/08 positive. BC 11/13 negative -ECHO without evidence of veg H/O infected right HDC cath s/p removal on 11/01 + MRSA. -s/p interval placement of a temp [facility]/HDC on 11/01; removed. -s/p Tunneled HDC placement on 11/16. Leukocytosis Resp failure w/ pleural effusion s/p thoracentesis 11/07 with 1/1 liter removed pH 7.51. 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 C. diff neg 11/22 rt toes pain plan: fu with ID, renal. cont HD on daptomycin, Ceftaroline. bcx this admission neg. 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 Dentures. no conjunc petechia LUNGS: Clear HEART: S1, S2. ABDOMEN: Soft. BS +. Ostomy, nontender EXTREMITIES: Left BKA, stump. Right lateral leg wound. looks clean, right foot has iv access, toes pain , tenderness without wound. 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 Tunneled HDC (11/16) w/o signs of complications PIV right foot General: Alert, No acute distress Heart: Normal S1, Normal S2 Lungs: Crackles Extremities: No clubbing, No cyanosis Skin: No rashes, No breakdown Labs LABS Laboratory Tests Test 11/26/17 03:25 White Blood Count 11.1 x10^3/uL (4.0-11.0) Red Blood Count 2.55 x10^6/uL (3.50-5.40) Hemoglobin 6.8 g/dL (12.0-15.5) Hematocrit 21.1 % (36.0-47.0) Mean Corpuscular Volume 83 fL (79-100) Mean Corpuscular Hemoglobin 27 pg (25-35) Mean Corpuscular Hemoglobin Concent 32 g/dL (31-37) Red Cell Distribution Width 20.5 % (11.5-14.5) Platelet Count 415 x10^3/uL (140-400) Neutrophils (%) (Auto) 66 % (31-73) Lymphocytes (%) (Auto) 17 % (24-48) Monocytes (%) (Auto) 13 % (0-9) Eosinophils (%) (Auto) 4 % (0-3) Basophils (%) (Auto) 1 % (0-3) Neutrophils # (Auto) 7.4 x10^3uL (1.8-7.7) Lymphocytes # (Auto) 1.9 x10^3/uL (1.0-4.8) Monocytes # (Auto) 1.4 x10^3/uL (0.0-1.1) Eosinophils # (Auto) 0.4 x10^3/uL (0.0-0.7) Basophils # (Auto) 0.1 x10^3/uL (0.0-0.2) Sodium Level 139 mmol/L (136-145) Potassium Level 3.3 mmol/L (3.5-5.1) Chloride Level 102 mmol/L (98-107) Carbon Dioxide Level 21 mmol/L (21-32) Anion Gap 16 (6-14) Blood Urea Nitrogen 28 mg/dL (7-20) Creatinine 5.6 mg/dL (0.6-1.0) Estimated GFR (Cockcroft-Gault) 9.0 Glucose Level 86 mg/dL (70-99) Calcium Level 8.7 mg/dL (8.5-10.1) Assessment and Plan Assessmemt and Plan Problems Medical Problems: (1) End stage renal disease Status: Acute (2) Fever Status: Acute (3) Leukocytosis Status: Acute Comment Review of Relevant I have reviewed the following items olivia (where applicable) has been applied. Labs Laboratory Tests Test 11/25/17 08:25 11/26/17 03:25 White Blood Count 10.4 x10^3/uL (4.0-11.0) 11.1 x10^3/uL (4.0-11.0) Red Blood Count 2.77 x10^6/uL (3.50-5.40) 2.55 x10^6/uL (3.50-5.40) Hemoglobin 7.4 g/dL (12.0-15.5) 6.8 g/dL (12.0-15.5) Hematocrit 23.1 % (36.0-47.0) 21.1 % (36.0-47.0) Mean Corpuscular Volume 83 fL (79-100) 83 fL (79-100) Mean Corpuscular Hemoglobin 27 pg (25-35) 27 pg (25-35) Mean Corpuscular Hemoglobin Concent 32 g/dL (31-37) 32 g/dL (31-37) Red Cell Distribution Width 20.6 % (11.5-14.5) 20.5 % (11.5-14.5) Platelet Count 450 x10^3/uL (140-400) 415 x10^3/uL (140-400) Neutrophils (%) (Auto) 66 % (31-73) 66 % (31-73) Lymphocytes (%) (Auto) 14 % (24-48) 17 % (24-48) Monocytes (%) (Auto) 15 % (0-9) 13 % (0-9) Eosinophils (%) (Auto) 5 % (0-3) 4 % (0-3) Basophils (%) (Auto) 1 % (0-3) 1 % (0-3) Neutrophils # (Auto) 6.8 x10^3uL (1.8-7.7) 7.4 x10^3uL (1.8-7.7) Lymphocytes # (Auto) 1.4 x10^3/uL (1.0-4.8) 1.9 x10^3/uL (1.0-4.8) Monocytes # (Auto) 1.5 x10^3/uL (0.0-1.1) 1.4 x10^3/uL (0.0-1.1) Eosinophils # (Auto) 0.5 x10^3/uL (0.0-0.7) 0.4 x10^3/uL (0.0-0.7) Basophils # (Auto) 0.1 x10^3/uL (0.0-0.2) 0.1 x10^3/uL (0.0-0.2) Sodium Level 140 mmol/L (136-145) 139 mmol/L (136-145) Potassium Level 3.7 mmol/L (3.5-5.1) 3.3 mmol/L (3.5-5.1) Chloride Level 101 mmol/L (98-107) 102 mmol/L (98-107) Carbon Dioxide Level 25 mmol/L (21-32) 21 mmol/L (21-32) Anion Gap 14 (6-14) 16 (6-14) Blood Urea Nitrogen 20 mg/dL (7-20) 28 mg/dL (7-20) Creatinine 4.4 mg/dL (0.6-1.0) 5.6 mg/dL (0.6-1.0) Estimated GFR (Cockcroft-Gault) 11.8 9.0 Glucose Level 96 mg/dL (70-99) 86 mg/dL (70-99) Calcium Level 9.0 mg/dL (8.5-10.1) 8.7 mg/dL (8.5-10.1) Laboratory Tests Test 11/26/17 03:25 White Blood Count 11.1 x10^3/uL (4.0-11.0) Red Blood Count 2.55 x10^6/uL (3.50-5.40) Hemoglobin 6.8 g/dL (12.0-15.5) Hematocrit 21.1 % (36.0-47.0) Mean Corpuscular Volume 83 fL (79-100) Mean Corpuscular Hemoglobin 27 pg (25-35) Mean Corpuscular Hemoglobin Concent 32 g/dL (31-37) Red Cell Distribution Width 20.5 % (11.5-14.5) Platelet Count 415 x10^3/uL (140-400) Neutrophils (%) (Auto) 66 % (31-73) Lymphocytes (%) (Auto) 17 % (24-48) Monocytes (%) (Auto) 13 % (0-9) Eosinophils (%) (Auto) 4 % (0-3) Basophils (%) (Auto) 1 % (0-3) Neutrophils # (Auto) 7.4 x10^3uL (1.8-7.7) Lymphocytes # (Auto) 1.9 x10^3/uL (1.0-4.8) Monocytes # (Auto) 1.4 x10^3/uL (0.0-1.1) Eosinophils # (Auto) 0.4 x10^3/uL (0.0-0.7) Basophils # (Auto) 0.1 x10^3/uL (0.0-0.2) Sodium Level 139 mmol/L (136-145) Potassium Level 3.3 mmol/L (3.5-5.1) Chloride Level 102 mmol/L (98-107) Carbon Dioxide Level 21 mmol/L (21-32) Anion Gap 16 (6-14) Blood Urea Nitrogen 28 mg/dL (7-20) Creatinine 5.6 mg/dL (0.6-1.0) Estimated GFR (Cockcroft-Gault) 9.0 Glucose Level 86 mg/dL (70-99) Calcium Level 8.7 mg/dL (8.5-10.1) Microbiology 11/23/17 Blood Culture - Preliminary, Resulted NO GROWTH AFTER 3 DAYS 11/23/17 Anaerobic/Aerobic Culture, Resulted Pending 11/23/17 Anaerobic Culture Result 1 (PARTH), Resulted Pending 11/23/17 Aerobic Culture - Preliminary, Resulted 11/23/17 Aerobic Culture Result 1 (PARTH) - Preliminary, Resulted 11/23/17 Gram Stain - Final, Resulted 11/23/17 Gram Stain Result 1 (PARTH) - Final, Resulted 11/23/17 Gram Stain Result 2 (PARTH) - Final, Resulted Medications Current Medications Levofloxacin/ Dextrose 150 ml @ 100 mls/hr Q24H IV Last administered on at 20:36; Start 11/22/17 at 20:00; Stop 11/23/17 at 00:00; Status DC Piperacillin Sod/ Tazobactam Sod 4.5 gm/Sodium Chloride 100 ml @ 200 mls/hr Q6HRS IV Last administered on 11/22/17at 23:16; Start 11/23/17 at 00:00; Stop 11/23/17 at 00:29; Status DC Acetaminophen (Tylenol) 1,000 mg 1X ONCE PO Last administered on 11/22/17at 21 :48; Start 11/22/17 at 21:30; Stop 11/22/17 at 21:31; Status DC Sodium Chloride 500 ml @ 500 mls/hr 1X ONCE IV Last administered on at 21:49; Start 11/22/17 at 21:30; Stop 11/22/17 at 22:29; Status DC Ondansetron HCl (Zofran) 4 mg PRN Q8HRS PRN IV NAUSEA/VOMITING 1ST CHOICE; Start 11/22/17 at 21:30; Stop 11/23/17 at 21:29; Status DC Fentanyl Citrate (Fentanyl 2ml Vial) 50 mcg PRN Q2HR PRN IV SEVERE PAIN Last administered on 11/23/17at 05:05; Start 11/22/17 at 21:30; Stop 11/23/17 at 21 :29; Status DC Acetaminophen (Tylenol) 650 mg PRN Q4HRS PRN PO FEVER Last administered on 01/29at 09:57; Start 11/22/17 at 21:30; Stop 11/23/17 at 21:29; Status DC Piperacillin Sod/ Tazobactam Sod 2.25 gm/Sodium Chloride 50 ml @ 100 mls/hr Q8HRS IV Last administered on 11/23/17at 04:58; Start 11/23/17 at 06:00; Stop 11/23/17 at 11:56; Status DC Levofloxacin/ Dextrose 100 ml @ 100 mls/hr Q48H IV Last administered on at 00:00; Start 11/24/17 at 21:00; Stop 11/26/17 at 11:36; Status DC Potassium Chloride (Klor-Con) 40 meq 1X ONCE PO Last administered on at 09:04; Start 11/23/17 at 09:00; Stop 11/23/17 at 09:03; Status DC Acetaminophen (Tylenol Supp) 650 mg PRN Q6HRS PRN OH HEADACHE / TEMP; Start at 10:45 Cinacalcet (Sensipar) 30 mg HS PO Last administered on 11/25/17at 20:43; Start 11/23/17 at 21:00 Diphenoxylate HCl/ Atropine (Lomotil) 1 tab PRN Q8HRS PRN PO DIARRHEA Last administered on 11/25/17 07:43; Start 11/23/17 at 10:45 Vitamin B Complex/ Vitamin C (Yaneth-Nabeel) 1 tab DAILY PO Last administered on at 08:48; Start 11/23/17 at 11:00 Acetaminophen/ Hydrocodone Bitart (Lortab 7.5/325) 1 tab PRN Q8HRS PRN PO PAIN MODERATE Last administered on 11/26/17at 08:50; Start 11/23/17 at 10:45 Artificial Tears (Artificial Tears) 1 drop PRN Q15MIN PRN OU DRY EYE; Start at 10:45 Triamcinolone Acetonide (Kenalog) 1 hanh PRN Q8HRS PRN TP ITCHING; Start at 10:45 Midodrine (Proamatine) 5 mg [id number] PO Last administered on 11/26/17at 08:49; Start 11/23/17 at 13:00 Multivitamins (Thera M Plus) 1 tab DAILY PO Last administered on 11/26/17at 08: 49; Start 11/23/17 at 12:00 Sulfasalazine (Azulfidine) 500 mg BID PO Last administered on 11/26/17at 08:48 ; Start 11/23/17 at 21:00 Daptomycin 310 mg/ Sodium Chloride 50 ml @ 100 mls/hr QODAY IV Last administered on 11/25/17at 09:39; Start 11/23/17 at 14:00 Ceftaroline Fosamil 200 mg/ Sodium Chloride 250 ml @ 250 mls/hr Q12HR IV Last administered on 11/26/17at 08:41; Start 11/23/17 at 13:00 Sodium Chloride 1,000 ml @ 1,000 mls/hr Q1H PRN IV hypotension; Start at 12:45; Stop 11/23/17 at 18:44; Status DC Sodium Chloride (Normal Saline Flush) 10 ml 1X PRN PRN IV AP catheter pack; Start 11/23/17 at 12:45; Stop 11/24/17 at 12:44; Status DC Sodium Chloride (Normal Saline Flush) 10 ml 1X PRN PRN IV 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; Start 11/23/17 at 12:45; Stop 11/24/17 at 12:44; Status DC Sodium Chloride 1,000 ml @ 400 mls/hr Q2H30M PRN IV PATENCY; Start 11/23/17 at 12:45; Stop 11/24/17 at 00:44; Status DC Info (PHARMACY MONITORING -- do not chart) 1 each PRN DAILY PRN MC SEE COMMENTS ; Start 11/23/17 at 12:45; Status UNV Info (PHARMACY MONITORING -- do not chart) 1 each PRN DAILY PRN MC SEE COMMENTS ; Start 11/23/17 at 12:45 Fentanyl Citrate (Fentanyl 2ml Vial) 50 mcg PRN Q2HR PRN IV SEVERE PAIN Last administered on 11/26/17at 06:09; Start 11/24/17 at 00:30 Sodium Chloride 1,000 ml @ 1,000 mls/hr Q1H PRN IV hypotension; Start at 11:31; Stop 11/26/17 at 17:30 Sodium Chloride 1,000 ml @ 400 mls/hr Q2H30M PRN IV PATENCY; Start 11/26/17 at 11:31; Stop 11/26/17 at 23:30 Info (PHARMACY MONITORING -- do not chart) 1 each PRN DAILY PRN MC SEE COMMENTS ; Start 11/26/17 at 11:45; Status UNV Sodium Chloride (Normal Saline Flush) 10 ml QSHIFT PRN IV AFTER MEDS AND BLOOD DRAWS; Start 11/26/17 at 12:45 Lidocaine HCl (Xylocaine 2% Topical 5gm Tube) 1 hanh 1X ONCE TP ; Start at 12:45; Stop 11/26/17 at 12:46; Status DC Lidocaine HCl (Viscous Lidocaine) 15 ml 1X ONCE MM ; Start 11/26/17 at 12:45; Stop 11/26/17 at 12:46; Status DC Benzocaine (Hurricaine One) 2 spray 1X ONCE MM ; Start 11/26/17 at 12:45; Stop 11/26/17 at 12:46; Status DC Active Scripts Active Artificial Tears (Polyvinyl Alcohol) 15 Ml Drops 1 Drop OU PRN Q15MIN PRN 30 Days Acetaminophen Supp (Acetaminophen) 650 Mg Supp.rect 650 Mg [place] PRN Q6HRS PRN 30 Days Hydrocodone-Apap 7.5-325 (Hydrocodone Bit/Acetaminophen) 1 Each Tablet 1 Tab PO PRN Q8HRS PRN 7 Days Reported Multivitamins (Multivitamin) 1 Each Tablet 1 Tab PO DAILY Sensipar (Cinacalcet Hcl) 30 Mg Tablet 1 Tab PO HS Azulfidine (Sulfasalazine) 500 Mg Tablet 500 Mg PO BID Lomotil Tablet (Diphenoxylate Hcl/Atropine) 1 Each Tablet 1 Tab PO PRN Q8HRS Nephro-Nabeel Tablet (Folic Acid/Vitamin B Comp W-C) 0.8 Mg Tablet 1 Tab PO DAILY Triamcinolone Acetonide 0.1% Cream (Triamcinolone Acetonide) 15 Gm Cream..g. 1 Hanh TP PRN Q8HRS apply to bilat legs topically as needed for skin care Midodrine Hcl 5 Mg Tablet 5 Mg PO TID notify PCP if BP >180/110, P <60 Vitals/I & O Vital Sign - Last 24 Hours 11/25/17 11/25/17 11/25/17 11/25/17 15:00 18:53 19:00 20:00 Temp 97.5 98.5 97.5 98.5 Pulse 73 68 68 Resp 17 20 B/P (MAP) 89/52 (64) 89/50 85/49 (61) Pulse Ox 99 96 O2 Delivery Room Air Nasal Cannula Nasal Cannula O2 Flow Rate 3.0 11/25/17 11/25/17 11/25/17 11/26/17 20:43 23:02 23:15 03:07 Temp 98.4 97.0 98.4 97.0 Pulse 77 76 Resp 20 20 B/P (MAP) 76/42 (53) 82/50 (61) Pulse Ox 96 100 100 98 O2 Delivery Nasal Cannula Nasal Cannula Nasal Cannula Nasal Cannula O2 Flow Rate 3.0 3.0 11/26/17 11/26/17 11/26/17 11/26/17 06:09 06:09 06:39 07:00 Temp 97.4 97.4 Pulse 76 74 Resp 16 B/P (MAP) 82/50 105/65 (78) Pulse Ox 98 98 92 O2 Delivery Nasal Cannula Nasal Cannula Nasal Cannula O2 Flow Rate 3.0 3.0 3.0 11/26/17 11/26/17 11/26/17 08:49 08:50 09:50 Pulse 74 Resp 20 20 B/P (MAP) 105/65 Pulse Ox 92 92 O2 Delivery Nasal Cannula Nasal Cannula O2 Flow Rate 3.0 3.0 Intake and Output 11/25/17 11/25/17 11/26/17 15:00 23:00 07:00 Intake Total 300 ml 720 ml 250 ml Output Total 600 ml 400 ml Balance 300 ml 120 ml -150 ml BEULAH PINK MD Nov 26, 2017 13:27
--- NOTE | 2017-11-26 13:45 | PDOC ---
PULMONARY PROGRESS NOTES Subjective feels better, sob better,no cough, Vitals Vital Signs Date Time Temp Pulse Resp B/P (MAP) Pulse Ox O2 Delivery O2 Flow Rate FiO2 11/26/17 09:50 20 92 Nasal Cannula 3.0 11/26/17 08:49 74 105/65 11/26/17 07:00 97.4 97.4 ROS: No Nausea General: Alert, No acute distress HEENT: Other (nc at perrl ) Lungs: Clear Cardiovascular: S1, S2 Abdomen: Soft, Non-tender Neuro Exam: Alert Extremities: Other (l bka) Skin: Warm Labs Laboratory Tests Test 11/25/17 08:25 11/26/17 03:25 White Blood Count 10.4 x10^3/uL (4.0-11.0) 11.1 x10^3/uL (4.0-11.0) Red Blood Count 2.77 x10^6/uL (3.50-5.40) 2.55 x10^6/uL (3.50-5.40) Hemoglobin 7.4 g/dL (12.0-15.5) 6.8 g/dL (12.0-15.5) Hematocrit 23.1 % (36.0-47.0) 21.1 % (36.0-47.0) Mean Corpuscular Volume 83 fL (79-100) 83 fL (79-100) Mean Corpuscular Hemoglobin 27 pg (25-35) 27 pg (25-35) Mean Corpuscular Hemoglobin Concent 32 g/dL (31-37) 32 g/dL (31-37) Red Cell Distribution Width 20.6 % (11.5-14.5) 20.5 % (11.5-14.5) Platelet Count 450 x10^3/uL (140-400) 415 x10^3/uL (140-400) Neutrophils (%) (Auto) 66 % (31-73) 66 % (31-73) Lymphocytes (%) (Auto) 14 % (24-48) 17 % (24-48) Monocytes (%) (Auto) 15 % (0-9) 13 % (0-9) Eosinophils (%) (Auto) 5 % (0-3) 4 % (0-3) Basophils (%) (Auto) 1 % (0-3) 1 % (0-3) Neutrophils # (Auto) 6.8 x10^3uL (1.8-7.7) 7.4 x10^3uL (1.8-7.7) Lymphocytes # (Auto) 1.4 x10^3/uL (1.0-4.8) 1.9 x10^3/uL (1.0-4.8) Monocytes # (Auto) 1.5 x10^3/uL (0.0-1.1) 1.4 x10^3/uL (0.0-1.1) Eosinophils # (Auto) 0.5 x10^3/uL (0.0-0.7) 0.4 x10^3/uL (0.0-0.7) Basophils # (Auto) 0.1 x10^3/uL (0.0-0.2) 0.1 x10^3/uL (0.0-0.2) Sodium Level 140 mmol/L (136-145) 139 mmol/L (136-145) Potassium Level 3.7 mmol/L (3.5-5.1) 3.3 mmol/L (3.5-5.1) Chloride Level 101 mmol/L (98-107) 102 mmol/L (98-107) Carbon Dioxide Level 25 mmol/L (21-32) 21 mmol/L (21-32) Anion Gap 14 (6-14) 16 (6-14) Blood Urea Nitrogen 20 mg/dL (7-20) 28 mg/dL (7-20) Creatinine 4.4 mg/dL (0.6-1.0) 5.6 mg/dL (0.6-1.0) Estimated GFR (Cockcroft-Gault) 11.8 9.0 Glucose Level 96 mg/dL (70-99) 86 mg/dL (70-99) Calcium Level 9.0 mg/dL (8.5-10.1) 8.7 mg/dL (8.5-10.1) Laboratory Tests Test 11/26/17 03:25 White Blood Count 11.1 x10^3/uL (4.0-11.0) Red Blood Count 2.55 x10^6/uL (3.50-5.40) Hemoglobin 6.8 g/dL (12.0-15.5) Hematocrit 21.1 % (36.0-47.0) Mean Corpuscular Volume 83 fL (79-100) Mean Corpuscular Hemoglobin 27 pg (25-35) Mean Corpuscular Hemoglobin Concent 32 g/dL (31-37) Red Cell Distribution Width 20.5 % (11.5-14.5) Platelet Count 415 x10^3/uL (140-400) Neutrophils (%) (Auto) 66 % (31-73) Lymphocytes (%) (Auto) 17 % (24-48) Monocytes (%) (Auto) 13 % (0-9) Eosinophils (%) (Auto) 4 % (0-3) Basophils (%) (Auto) 1 % (0-3) Neutrophils # (Auto) 7.4 x10^3uL (1.8-7.7) Lymphocytes # (Auto) 1.9 x10^3/uL (1.0-4.8) Monocytes # (Auto) 1.4 x10^3/uL (0.0-1.1) Eosinophils # (Auto) 0.4 x10^3/uL (0.0-0.7) Basophils # (Auto) 0.1 x10^3/uL (0.0-0.2) Sodium Level 139 mmol/L (136-145) Potassium Level 3.3 mmol/L (3.5-5.1) Chloride Level 102 mmol/L (98-107) Carbon Dioxide Level 21 mmol/L (21-32) Anion Gap 16 (6-14) Blood Urea Nitrogen 28 mg/dL (7-20) Creatinine 5.6 mg/dL (0.6-1.0) Estimated GFR (Cockcroft-Gault) 9.0 Glucose Level 86 mg/dL (70-99) Calcium Level 8.7 mg/dL (8.5-10.1) Medications Active Scripts Medications Dose Route/Sig Max Daily Dose Days Date Category Dose Instructions Multivitamins (Multivitamin) 1 Each Tablet 1 Tab PO DAILY 11/23/17 Reported Artificial Tears (Polyvinyl Alcohol) 15 Ml Drops 1 Drop OU PRN Q15MIN PRN 30 11/16/17 Rx Acetaminophen Supp (Acetaminophen) 650 Mg Supp.rect 650 Mg HI PRN Q6HRS PRN 30 11/16/17 Rx Hydrocodone-Apap 7.5-325 (Hydrocodone Bit/Acetaminophen) 1 Each Tablet 1 Tab PO PRN Q8HRS PRN 7 11/16/17 Rx Sensipar (Cinacalcet Hcl) 30 Mg Tablet 1 Tab PO HS 11/03/17 Reported Azulfidine (Sulfasalazine) 500 Mg Tablet 500 Mg PO BID 11/03/17 Reported Lomotil Tablet (Diphenoxylate Hcl/Atropine) 1 Each Tablet 1 Tab PO PRN Q8HRS 11/03/17 Reported Nephro-Nabeel Tablet (Folic Acid/Vitamin B Comp W-C) 0.8 Mg Tablet 1 Tab PO DAILY 10/31/17 Reported Triamcinolone Acetonide 0.1% Cream (Triamcinolone Acetonide) 15 Gm Cream..g. 1 Hanh TP PRN Q8HRS 10/31/17 Reported apply to bilat legs topically as needed for skin care Midodrine Hcl 5 Mg Tablet 5 Mg PO TID 10/31/17 Reported notify PCP if BP >180/110, P <60 Impression . IMPRESSION: 1. Abnormal x-ray revealing small right-sided effusion. The patient is status post bilateral thoracentesis back on November 07. Cultures are negative transudative effusion. 2. History of methicillin-resistant Staphylococcus aureus bacteremia, previous admission from 10/31/2017, the source was hemodialyzed catheter. 3. Atrial fibrillation. 4. End-stage renal disease. 5. Anemia. 6. Chronic lateral right leg nonhealing wound. 7. Hypotension, improved. Plan . PLAN: 1. Pulmonary status appears to be compensated. No signs of pulmonary infection. will monitor closely. 2. cont abx per id 3. Hemodialysis per Nephrology. CHERI GAMA MD Nov 26, 2017 13:45
[2017-11-26] MEDS ORDERED: LIDOCAINE 1%/EPI 1:100,000 20 ML VIAL. ONE (14:38)
[2017-11-26] MEDS ORDERED: MIDAZOLAM HCL/PF 2 MG/2 ML VIAL. ONE (14:38)
[2017-11-26] MEDS ORDERED: fentaNYL PF VIAL 100 MCG/2 ML VIAL ONE (14:38)
[2017-11-26] MEDS ORDERED: HEPARIN PF 500 UNIT/5 ML DISP.SYRIN. IV ONE ×3 (14:45→16:00)
[2017-11-26] MEDS ORDERED: LIDOCAINE 1%/EPI 1:100,000 20 ML VIAL. IJ ONE (15:00)
[2017-11-26] MEDS ORDERED: MIDAZOLAM HCL/PF 2 MG/2 ML VIAL. IV ONE (15:00)
[2017-11-26] MEDS ORDERED: fentaNYL PF VIAL 100 MCG/2 ML VIAL IV ONE (15:00)
--- NOTE | 2017-11-26 15:26 | PDOC ---
SUBJECTIVE ROS Pt seen on HD , tolerating well, No concerns voiced by BRIAN OBJECTIVE Vital Signs Vital Signs Date Time Temp Pulse Resp B/P (MAP) Pulse Ox O2 Delivery O2 Flow Rate FiO2 11/26/17 09:50 20 92 Nasal Cannula 3.0 11/26/17 08:49 74 105/65 11/26/17 07:00 97.4 97.4 I & 0 Intake and Output 11/26/17 07:00 Intake Total 1270 ml Output Total 1000 ml Balance 270 ml Intake Oral 720 ml IV Total 550 ml Stool Total 1000 ml PHYSICAL EXAM Physical Exam GENERAL: NAD - in HD HEENT: Unremarkable LUNGS: Clear HEART: S1, S2. ABDOMEN: Soft. BS +. Ostomy, nontender EXTREMITIES: Left BKA, stump. 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 DIAGNOSIS/ASSESSMENT Assessment & Plan ESRD- On HD MWF Seen on HD, tolerating well Continue as Ordered Has TDC - was replaced recently after previous TDC was removed Sepsis MRSA - while on Vanc for MRSA bacteremia from previous admission -Repeat BC from 11/22 & NGTD s/p TDC removal in Oct 2017 Resp failure w/ pleural effusion - s/p thoracentesis COMMENT/RELEVANT DATA Meds Current Medications Medications (Trade) Dose Ordered Sig/Yovanny Start Time Stop Time Status Last Admin Dose Admin Acetaminophen (Tylenol Supp) 650 mg PRN Q6HRS PRN 11/23/17 10:45 Acetaminophen (Tylenol) 650 mg PRN Q4HRS PRN 11/22/17 21:30 11/23/17 21:29 DC 11/23/17 09:57 650 MG Acetaminophen/ Hydrocodone Bitart (Lortab 7.5/325) 1 tab PRN Q8HRS PRN 11/23/17 10:45 11/26/17 08:50 1 TAB Artificial Tears (Artificial Tears) 1 drop PRN Q15MIN PRN 11/23/17 10:45 Benzocaine (Hurricaine One) 2 spray 1X ONCE 11/26/17 12:45 11/26/17 12:46 DC Ceftaroline Fosamil 200 mg/ Sodium Chloride 250 ml @ 250 mls/hr Q12HR 11/23/17 13:00 11/26/17 08:41 250 MLS/HR Cinacalcet (Sensipar) 30 mg HS 11/23/17 21:00 11/25/17 20:43 30 MG Daptomycin 310 mg/ Sodium Chloride 50 ml @ 100 mls/hr QODAY 11/23/17 14:00 11/25/17 09:39 100 MLS/HR Diphenoxylate HCl/ Atropine (Lomotil) 1 tab PRN Q8HRS PRN 11/23/17 10:45 11/25/17 07:43 1 TAB Fentanyl Citrate (Fentanyl 2ml Vial) 100 mcg 1X ONCE 11/26/17 15:00 11/26/17 15:01 DC Heparin Sodium (Porcine) (Hep Lock Adult) 220 unit 1X ONCE 11/26/17 15:00 11/26/17 15:01 DC Info (PHARMACY MONITORING -- do not chart) 1 each PRN DAILY PRN 11/26/17 11:45 UNV Levofloxacin/ Dextrose 100 ml @ 100 mls/hr Q48H 11/24/17 21:00 11/26/17 11:36 DC 11/25/17 00:00 100 MLS/HR Lidocaine HCl (Viscous Lidocaine) 15 ml 1X ONCE 11/26/17 12:45 11/26/17 12:46 DC Lidocaine HCl (Xylocaine 2% Topical 5gm Tube) 1 tj 1X ONCE 11/26/17 12:45 11/26/17 12:46 DC Lidocaine/ Epinephrine (LIDOCAINE 1%-EPI 1:100,000 Multi-Dose) 20 ml 1X ONCE 11/26/17 15:00 11/26/17 15:01 DC Midazolam HCl (Versed) 2 mg 1X ONCE 11/26/17 15:00 11/26/17 15:01 DC Midodrine (Proamatine) 5 mg [id number] 11/23/17 13:00 11/26/17 08:49 5 MG Multivitamins (Thera M Plus) 1 tab DAILY 11/23/17 12:00 11/26/17 08:49 1 TAB Ondansetron HCl (Zofran) 4 mg PRN Q8HRS PRN 11/22/17 21:30 11/23/17 21:29 DC Piperacillin Sod/ Tazobactam Sod 2.25 gm/Sodium Chloride 50 ml @ 100 mls/hr Q8HRS 11/23/17 06:00 11/23/17 11:56 DC 11/23/17 04:58 100 MLS/HR Piperacillin Sod/ Tazobactam Sod 4.5 gm/Sodium Chloride 100 ml @ 200 mls/hr Q6HRS 11/23/17 00:00 11/23/17 00:29 DC 11/22/17 23:16 200 MLS/HR Potassium Chloride (Klor-Con) 40 meq 1X ONCE 11/23/17 09:00 11/23/17 09:03 DC 11/23/17 09:04 40 MEQ Sodium Chloride (Normal Saline Flush) 10 ml QSHIFT PRN 11/26/17 12:45 Sulfasalazine (Azulfidine) 500 mg BID 11/23/17 21:00 11/26/17 08:48 500 MG Triamcinolone Acetonide (Kenalog) 1 tj PRN Q8HRS PRN 11/23/17 10:45 Vitamin B Complex/ Vitamin C (Yaneth-Nabeel) 1 tab DAILY 11/23/17 11:00 11/26/17 08:48 1 TAB Lab Laboratory Tests Test 11/26/17 03:25 White Blood Count 11.1 x10^3/uL (4.0-11.0) Red Blood Count 2.55 x10^6/uL (3.50-5.40) Hemoglobin 6.8 g/dL (12.0-15.5) Hematocrit 21.1 % (36.0-47.0) Mean Corpuscular Volume 83 fL (79-100) Mean Corpuscular Hemoglobin 27 pg (25-35) Mean Corpuscular Hemoglobin Concent 32 g/dL (31-37) Red Cell Distribution Width 20.5 % (11.5-14.5) Platelet Count 415 x10^3/uL (140-400) Neutrophils (%) (Auto) 66 % (31-73) Lymphocytes (%) (Auto) 17 % (24-48) Monocytes (%) (Auto) 13 % (0-9) Eosinophils (%) (Auto) 4 % (0-3) Basophils (%) (Auto) 1 % (0-3) Neutrophils # (Auto) 7.4 x10^3uL (1.8-7.7) Lymphocytes # (Auto) 1.9 x10^3/uL (1.0-4.8) Monocytes # (Auto) 1.4 x10^3/uL (0.0-1.1) Eosinophils # (Auto) 0.4 x10^3/uL (0.0-0.7) Basophils # (Auto) 0.1 x10^3/uL (0.0-0.2) Sodium Level 139 mmol/L (136-145) Potassium Level 3.3 mmol/L (3.5-5.1) Chloride Level 102 mmol/L (98-107) Carbon Dioxide Level 21 mmol/L (21-32) Anion Gap 16 (6-14) Blood Urea Nitrogen 28 mg/dL (7-20) Creatinine 5.6 mg/dL (0.6-1.0) Estimated GFR (Cockcroft-Gault) 9.0 Glucose Level 86 mg/dL (70-99) Calcium Level 8.7 mg/dL (8.5-10.1) Results All relevant outside records, renal labs, imaging studies, telemetry/EKG's were reviewed. YVONNE ZAVALA MD Nov 26, 2017 15:26
--- NOTE | 2017-11-26 16:28 | RAD ---
Ultrasound-guided vascular access, tunneled central venous catheter placement History: Long-term IV antibiotics, renal failure. Procedure: Written informed consent was obtained. The targeted vein was reviewed sonographically and shown to be widely patent. This was placed in the patient's permanent record in PACS. All elements of maximal sterile barrier technique, including the use of a cap, mask, sterile gown, sterile gloves, large sterile sheet, appropriate hand hygiene, and 2% chlorhexidine for cutaneous antisepsis (or acceptable alternative antiseptic per current guidelines) were utilized. The area was draped and prepped in normal sterile fashion. Local anesthesia with 2% Lidocaine with Epinephrine was made. Under real-time ultrasound guidance a 21-gauge needle was advanced into the targeted vein. Needle placement was confirmed by return of venous blood flow. A 0.018 wire was placed through the needle and the needle was exchanged over the wire after dermatotomy for a 4 Citizen Of [place] transitional sheath. This was used to introduce a stiff guidewire. Sterile ultrasound technique was used. Local anesthesia was performed over the chest wall and a subcutaneous tunnel was created. The tunneled catheter was then advanced through the subcutaneous tunnel. The transitional sheath was then exchanged over the wire for fascial dilators to enlarge the venotomy site. Peel-away sheath was then placed over the wire. The tunneled catheter was then placed through the peel-away sheath. The peel-away sheath was then removed. Clinical function of the catheter was tested with good results. The catheter was secured in place. Catheter was flushed and packed per protocol. The patient tolerated tolerated the procedure with moderate conscious anesthesia [id number] procedure time from 3:12 PM until 4:02 PM. With intravenous Versed and fentanyl. Patient was constantly monitored by an independent trained observer with cardiopulmonary monitoring. Exposure: Otis area product.: 0.4 Gycm2 A Spot film radiograph was performed to document final position in followup. Impression: Placement of tunneled central venous catheter via left internal jugular vein approach.
--- NOTE | 2017-11-26 16:50 | RAD ---
Right leg arterial duplex Doppler: HISTORY: Right toe pain COMPARISON: None TECHNIQUE: Real-time grayscale B-mode interrogation of the arterial runoff in the right leg is performed. Color and duplex spectral Doppler analysis is obtained of the arteries in the right leg. FINDINGS: Diffuse prominent calcified plaquing is noted on hoskins scale imaging throughout the arterial runoff in the right leg. There is biphasic waveform seen in the right common femoral artery with a peak systolic velocity of 106 cm/s. In the bifurcation there is biphasic waveform of the right superficial femoral and profunda femoris. There is no arterial venous loop graft seen with the origin appearing to arise off the proximal superficial femoral artery. The loop graft is occluded. Just beyond the loop graft origin there is a patent section of the right superficial femoral artery that appears to reflect a stent placed within the artery. Biphasic waveforms are seen in the right SFA with peak systolic velocity of 92 cm/s, in the mid section 97 cm/s, and distally 112 cm/s. The popliteal artery there is more prominent degradation of the waveforms show monophasic flow and a peak velocity of 67 cm/s. Monophasic waveforms are in the coronal arteries with peak velocities in the posterior tibial of 59 cm/s, peroneal 78 cm/s, intertibial 78 cm/s. There is more prominent degradation of the posterior tibial artery waveform at the ankle with a peak velocity of 30 cm/s. And tardus parvus degradation of the systolic upstroke. In the dorsalis pedis artery there is a more brisk systolic waveform and peak velocity of 92 cm/s. IMPRESSION: Occluded right AV graft for hemodialysis in the proximal thigh. There appears to be patent stent in the proximal right superficial femoral artery. Degradation of waveform in the proximal popliteal arteries suggest significant stenosis is likely present in the distal SFA or proximal popliteal artery. Degradation waveform likely reflects significant stenosis or occlusion in the right posterior tibial artery. Electronically signed by: Teja Ortiz MD (11/26/2017 4:47 PM) [id number]
[2017-11-26] MEDS: CINACALCET HCL 30 MG TABLET PO SCH (20:55)
[2017-11-27] VITALS (10 sets, daily range): BP systolic 63–99; BP diastolic 33–57
[2017-11-27] MEDS: HYDROcodone/APAP 7.5/325MG 1 TAB TABLET PO PRN ×3 (01:33→23:34)
[2017-11-27] MEDS: HEPARIN PF 500 UNIT/5 ML DISP.SYRIN. IV PRN (01:33)
[2017-11-27] MEDS: MIDODRINE 5 MG TABLET PO SCH ×3 (05:42→18:23)
[2017-11-27 06:17] LABS: CALCIUM 8.4 mg/dL (8.5-10.1); CREATININE 2.9 mg/dL (0.6-1.0); GFR 19.1; POTASSIUM 3.3 mmol/L (3.5-5.1)
[2017-11-27] MEDS ORDERED: HYDROmorphone 2 MG/ML VIAL IV PRN (07:00)
[2017-11-27] MEDS ORDERED: MORPHINE SULFATE 2 MG/ML VIAL. IV PRN (07:00)
[2017-11-27] MEDS ORDERED: PROCHLORPERAZINE 10 MG/2 ML VIAL. IV PRN (07:00)
[2017-11-27] MEDS ORDERED: fentaNYL PF VIAL 100 MCG/2 ML VIAL IV PRN ×2 (07:00)
[2017-11-27] MEDS ORDERED: LIDOCAINE 1% PF 2 ML VIAL. ID PRN (07:00)
[2017-11-27] MEDS ORDERED: ONDANSETRON PF 4 MG/2 ML VIAL. IV PRN (07:00)
[2017-11-27] MEDS ORDERED: IV RINGERS,LACTATED 1000ML 1,000 ML IV SCH (07:00)
[2017-11-27 07:07] LABS: BASO # 0.1 x10^3/uL (0.0-0.2); BASO % 0 % (0-3); EOS # 0.1 x10^3/uL (0.0-0.7); EOS % 0 % (0-3); HEMATOCRIT 25.3 % (36.0-47.0); HEMOGLOBIN 7.9 g/dL (12.0-15.5); LYMPH # 0.4 x10^3/uL (1.0-4.8); LYMPH % 2 % (24-48); MEAN CORPUSCULAR HEMOGLOBIN 26 pg (25-35); MEAN CORPUSCULAR HGB CONC 31 g/dL (31-37); MEAN CORPUSCULAR VOLUME 83 fL (79-100); MONO # 0.9 x10^3/uL (0.0-1.1); MONO % 4 % (0-9); NEUT # 21.1 x10^3uL (1.8-7.7); NEUT % 94 % (31-73); PLATELET COUNT 398 x10^3/uL (140-400); RED BLOOD COUNT 3.04 x10^6/uL (3.50-5.40); RED CELL DISTRIBUTION WIDTH 19.1 % (11.5-14.5); WHITE BLOOD COUNT 22.4 x10^3/uL (4.0-11.0)
[2017-11-27 08:00] LABS: % BANDS 3 % (0-9); % BASOS 1 % (0-3); % LYMPHS 4 % (24-48); % MONOS 6 % (0-10); % SEGS 86 % (35-66); PLT ESTIMATE ADEQUATE (ADEQUATE)
[2017-11-27 08:01] LABS: ANISOCYTOSIS SLIGHT
[2017-11-27 08:02] LABS: POIKILOCYTOSIS SLIGHT
[2017-11-27 08:03] LABS: TOXIC VACUOLATION PRESENT
[2017-11-27 08:04] LABS: OVALOCYTES PRESENT; TARGET CELLS PRESENT
[2017-11-27] MEDS: sulfaSALAzine 500 MG TABLET PO SCH ×2 (08:29→21:00)
[2017-11-27] MEDS: MULTIVITAMIN with MINERAL TABLET. PO SCH (08:29)
[2017-11-27] MEDS: CEFTAROLINE FOSAMIL IV SCH ×2 (08:35→21:47)
[2017-11-27] MEDS: NORMAL SALINE IV SCH ×3 (08:35→21:47)
[2017-11-27] MEDS: FOLIC/VIT B COMP W-C (RENAL) TABLET. PO SCH (09:00)
[2017-11-27] MEDS ORDERED: HYDROCORTISONE SOD SUCC/PF 100 MG/2 ML VIAL. IV ONE (09:45)
[2017-11-27] MEDS ORDERED: IV NORMAL SALINE 1000ML BAG 1,000 ML IV ONE (09:45)
--- NOTE | 2017-11-27 10:36 | PDOC2 ---
PALLIATIVE CARE Palliative Care Note Palliative Care Consult requested by Dr. Gallagher to address Code Status Medical Assessment per record 1. Abnormal x-ray revealing small right-sided effusion. The patient is status post bilateral thoracentesis back on November 07. Cultures are negative transudative effusion. 2. History of methicillin-resistant Staphylococcus aureus bacteremia, previous admission from 10/31/2017, the source was hemodialyzed catheter. 3. Atrial fibrillation. 4. End-stage renal disease. 5. Anemia. 6. Chronic lateral right leg nonhealing wound. 7. Hypotension Patient know to Palliative Care from previous admission. Patient awakens easily. Oriented x4. Understands she has serious illness. Per our discussion last admission patient did not want resuscitation. wanted her resuscitated but would honor her wishes. did sign outside the hospital DNR/DNI. Spoke with patient again She does not want resuscitation. She understands without this attempt she likely would . Attempted to call to discuss. Message left to return call to PC or to Venus RN Spoke with Dr. Gallagher regarding this discussion with patient. Spoke with . Informed that patient wishes to be DNR/DNI. He is supportive of her wishes. Signed Outside the Hospital DNR/DNI KIP CAMACHO Nov 27, 2017 10:36
[2017-11-27] MEDS: DAPTOMYCIN IV SCH (11:01)
--- NOTE | 2017-11-27 11:38 | PDOC ---
PULMONARY PROGRESS NOTES Subjective sob better,no cough, running low BP Vitals Vital Signs Date Time Temp Pulse Resp B/P (MAP) Pulse Ox O2 Delivery O2 Flow Rate FiO2 11/27/17 10:29 72/38 (49) 11/27/17 10:00 95 11/27/17 07:00 98.7 16 90 Nasal Cannula 98.7 11/27/17 01:33 3.0 ROS: No Nausea General: Alert, No acute distress HEENT: Other (nc at perrl ) Lungs: Clear Cardiovascular: S1, S2 Abdomen: Soft, Non-tender Neuro Exam: Alert Extremities: Other (l bka) Skin: Warm Labs Laboratory Tests Test 11/26/17 03:25 11/27/17 05:30 White Blood Count 11.1 x10^3/uL (4.0-11.0) 22.4 x10^3/uL (4.0-11.0) Red Blood Count 2.55 x10^6/uL (3.50-5.40) 3.04 x10^6/uL (3.50-5.40) Hemoglobin 6.8 g/dL (12.0-15.5) 7.9 g/dL (12.0-15.5) Hematocrit 21.1 % (36.0-47.0) 25.3 % (36.0-47.0) Mean Corpuscular Volume 83 fL (79-100) 83 fL (79-100) Mean Corpuscular Hemoglobin 27 pg (25-35) 26 pg (25-35) Mean Corpuscular Hemoglobin Concent 32 g/dL (31-37) 31 g/dL (31-37) Red Cell Distribution Width 20.5 % (11.5-14.5) 19.1 % (11.5-14.5) Platelet Count 415 x10^3/uL (140-400) 398 x10^3/uL (140-400) Neutrophils (%) (Auto) 66 % (31-73) 94 % (31-73) Lymphocytes (%) (Auto) 17 % (24-48) 2 % (24-48) Monocytes (%) (Auto) 13 % (0-9) 4 % (0-9) Eosinophils (%) (Auto) 4 % (0-3) 0 % (0-3) Basophils (%) (Auto) 1 % (0-3) 0 % (0-3) Neutrophils # (Auto) 7.4 x10^3uL (1.8-7.7) 21.1 x10^3uL (1.8-7.7) Lymphocytes # (Auto) 1.9 x10^3/uL (1.0-4.8) 0.4 x10^3/uL (1.0-4.8) Monocytes # (Auto) 1.4 x10^3/uL (0.0-1.1) 0.9 x10^3/uL (0.0-1.1) Eosinophils # (Auto) 0.4 x10^3/uL (0.0-0.7) 0.1 x10^3/uL (0.0-0.7) Basophils # (Auto) 0.1 x10^3/uL (0.0-0.2) 0.1 x10^3/uL (0.0-0.2) Sodium Level 139 mmol/L (136-145) 144 mmol/L (136-145) Potassium Level 3.3 mmol/L (3.5-5.1) 3.3 mmol/L (3.5-5.1) Chloride Level 102 mmol/L (98-107) 106 mmol/L (98-107) Carbon Dioxide Level 21 mmol/L (21-32) 27 mmol/L (21-32) Anion Gap 16 (6-14) 11 (6-14) Blood Urea Nitrogen 28 mg/dL (7-20) 13 mg/dL (7-20) Creatinine 5.6 mg/dL (0.6-1.0) 2.9 mg/dL (0.6-1.0) Estimated GFR (Cockcroft-Gault) 9.0 19.1 Glucose Level 86 mg/dL (70-99) 98 mg/dL (70-99) Calcium Level 8.7 mg/dL (8.5-10.1) 8.4 mg/dL (8.5-10.1) Segmented Neutrophils % 86 % (35-66) Band Neutrophils % 3 % (0-9) Lymphocytes % 4 % (24-48) Monocytes % 6 % (0-10) Basophils % 1 % (0-3) Toxic Vacuolation Present Platelet Estimate Adequate (ADEQUATE) Large Platelets Present Poikilocytosis Slight Basophilic Stippling Present Anisocytosis Slight Target Cells Present Ovalocytes Present Laboratory Tests Test 11/27/17 05:30 White Blood Count 22.4 x10^3/uL (4.0-11.0) Red Blood Count 3.04 x10^6/uL (3.50-5.40) Hemoglobin 7.9 g/dL (12.0-15.5) Hematocrit 25.3 % (36.0-47.0) Mean Corpuscular Volume 83 fL (79-100) Mean Corpuscular Hemoglobin 26 pg (25-35) Mean Corpuscular Hemoglobin Concent 31 g/dL (31-37) Red Cell Distribution Width 19.1 % (11.5-14.5) Platelet Count 398 x10^3/uL (140-400) Neutrophils (%) (Auto) 94 % (31-73) Lymphocytes (%) (Auto) 2 % (24-48) Monocytes (%) (Auto) 4 % (0-9) Eosinophils (%) (Auto) 0 % (0-3) Basophils (%) (Auto) 0 % (0-3) Neutrophils # (Auto) 21.1 x10^3uL (1.8-7.7) Lymphocytes # (Auto) 0.4 x10^3/uL (1.0-4.8) Monocytes # (Auto) 0.9 x10^3/uL (0.0-1.1) Eosinophils # (Auto) 0.1 x10^3/uL (0.0-0.7) Basophils # (Auto) 0.1 x10^3/uL (0.0-0.2) Segmented Neutrophils % 86 % (35-66) Band Neutrophils % 3 % (0-9) Lymphocytes % 4 % (24-48) Monocytes % 6 % (0-10) Basophils % 1 % (0-3) Toxic Vacuolation Present Platelet Estimate Adequate (ADEQUATE) Large Platelets Present Poikilocytosis Slight Basophilic Stippling Present Anisocytosis Slight Target Cells Present Ovalocytes Present Sodium Level 144 mmol/L (136-145) Potassium Level 3.3 mmol/L (3.5-5.1) Chloride Level 106 mmol/L (98-107) Carbon Dioxide Level 27 mmol/L (21-32) Anion Gap 11 (6-14) Blood Urea Nitrogen 13 mg/dL (7-20) Creatinine 2.9 mg/dL (0.6-1.0) Estimated GFR (Cockcroft-Gault) 19.1 Glucose Level 98 mg/dL (70-99) Calcium Level 8.4 mg/dL (8.5-10.1) Medications Active Scripts Medications Dose Route/Sig Max Daily Dose Days Date Category Dose Instructions Multivitamins (Multivitamin) 1 Each Tablet 1 Tab PO DAILY 11/23/17 Reported Artificial Tears (Polyvinyl Alcohol) 15 Ml Drops 1 Drop OU PRN Q15MIN PRN 30 11/16/17 Rx Acetaminophen Supp (Acetaminophen) 650 Mg Supp.rect 650 Mg AK PRN Q6HRS PRN 30 11/16/17 Rx Hydrocodone-Apap 7.5-325 (Hydrocodone Bit/Acetaminophen) 1 Each Tablet 1 Tab PO PRN Q8HRS PRN 7 11/16/17 Rx Sensipar (Cinacalcet Hcl) 30 Mg Tablet 1 Tab PO HS 11/03/17 Reported Azulfidine (Sulfasalazine) 500 Mg Tablet 500 Mg PO BID 11/03/17 Reported Lomotil Tablet (Diphenoxylate Hcl/Atropine) 1 Each Tablet 1 Tab PO PRN Q8HRS 11/03/17 Reported Nephro-Nabeel Tablet (Folic Acid/Vitamin B Comp W-C) 0.8 Mg Tablet 1 Tab PO DAILY 10/31/17 Reported Triamcinolone Acetonide 0.1% Cream (Triamcinolone Acetonide) 15 Gm Cream..g. 1 Hanh TP PRN Q8HRS 10/31/17 Reported apply to bilat legs topically as needed for skin care Midodrine Hcl 5 Mg Tablet 5 Mg PO TID 10/31/17 Reported notify PCP if BP >180/110, P <60 Impression . IMPRESSION: 1. Abnormal x-ray revealing small right-sided effusion. The patient is status post bilateral thoracentesis back on November 07. Cultures are negative transudative effusion. 2. History of methicillin-resistant Staphylococcus aureus bacteremia, previous admission from 10/31/2017, the source was hemodialyzed catheter. 3. Atrial fibrillation. 4. End-stage renal disease. 5. Anemia. 6. Chronic lateral right leg nonhealing wound. 7. Hypotension, NPO for PHILIP, probably dry Plan . PLAN: 1. Pulmonary status appears to be compensated. No signs of pulmonary infection. will monitor closely. 2. cont abx per id 3. Hemodialysis per Nephrology. 4. fluid bolus 5. Palliative care spoke with patient. she wants DNR/DNI. CHERI GAMA MD Nov 27, 2017 11:38
--- NOTE | 2017-11-27 12:43 | PDOC ---
Infectious Disease Note Subjective Subjective Comfortable Feeling ok. Was a little dizzy earlier but better. a little tired Denies N/V/cramps No F/C/S/aches/SOB ROS ROS o/w neg Vital Sign Vital Signs Vital Signs Date Time Temp Pulse Resp B/P (MAP) Pulse Ox O2 Delivery O2 Flow Rate FiO2 11/27/17 10:29 72/38 (49) 11/27/17 10:00 95 11/27/17 07:00 98.7 16 90 Nasal Cannula 98.7 11/27/17 01:33 3.0 Physical Exam PHYSICAL EXAM GENERAL: Propped up in bed, alert, NAD HEENT: Oral cavity dry. Dentures. no conjunc petechia LUNGS: Clear HEART: S1, S2. ABDOMEN: Soft. BS +. Ostomy, nontender EXTREMITIES: Left BKA, stump. Right lateral leg wound. looks clean, right foot has iv access, toes pain , tenderness without wound. weak pulse [employer]: Arouses easily to name, responds appropriately and follow commands SKIN: No generalized rash. Tunneled HDC (11/16) w/o signs of complications. Left chest PICC - clean PIV right foot Labs Lab Laboratory Tests Test 11/27/17 05:30 White Blood Count 22.4 x10^3/uL (4.0-11.0) Red Blood Count 3.04 x10^6/uL (3.50-5.40) Hemoglobin 7.9 g/dL (12.0-15.5) Hematocrit 25.3 % (36.0-47.0) Mean Corpuscular Volume 83 fL (79-100) Mean Corpuscular Hemoglobin 26 pg (25-35) Mean Corpuscular Hemoglobin Concent 31 g/dL (31-37) Red Cell Distribution Width 19.1 % (11.5-14.5) Platelet Count 398 x10^3/uL (140-400) Neutrophils (%) (Auto) 94 % (31-73) Lymphocytes (%) (Auto) 2 % (24-48) Monocytes (%) (Auto) 4 % (0-9) Eosinophils (%) (Auto) 0 % (0-3) Basophils (%) (Auto) 0 % (0-3) Neutrophils # (Auto) 21.1 x10^3uL (1.8-7.7) Lymphocytes # (Auto) 0.4 x10^3/uL (1.0-4.8) Monocytes # (Auto) 0.9 x10^3/uL (0.0-1.1) Eosinophils # (Auto) 0.1 x10^3/uL (0.0-0.7) Basophils # (Auto) 0.1 x10^3/uL (0.0-0.2) Segmented Neutrophils % 86 % (35-66) Band Neutrophils % 3 % (0-9) Lymphocytes % 4 % (24-48) Monocytes % 6 % (0-10) Basophils % 1 % (0-3) Toxic Vacuolation Present Platelet Estimate Adequate (ADEQUATE) Large Platelets Present Poikilocytosis Slight Basophilic Stippling Present Anisocytosis Slight Target Cells Present Ovalocytes Present Sodium Level 144 mmol/L (136-145) Potassium Level 3.3 mmol/L (3.5-5.1) Chloride Level 106 mmol/L (98-107) Carbon Dioxide Level 27 mmol/L (21-32) Anion Gap 11 (6-14) Blood Urea Nitrogen 13 mg/dL (7-20) Creatinine 2.9 mg/dL (0.6-1.0) Estimated GFR (Cockcroft-Gault) 19.1 Glucose Level 98 mg/dL (70-99) Calcium Level 8.4 mg/dL (8.5-10.1) Micro Microbiology 11/23/17 Blood Culture - Preliminary, Resulted NO GROWTH AFTER 2 DAYS 11/23/17 Anaerobic/Aerobic Culture, Resulted Pending 11/23/17 Anaerobic Culture Result 1 (PARTH), Resulted Pending 11/23/17 Aerobic Culture - Preliminary, Resulted 11/23/17 Aerobic Culture Result 1 (PARTH) - Preliminary, Resulted 11/23/17 Gram Stain - Final, Resulted 11/23/17 Gram Stain Result 1 (PARTH) - Final, Resulted 11/23/17 Gram Stain Result 2 (PARTH) - Final, Resulted Objective Assessment Sepsis MRSA from 11/21 POA ([facility]) while on Vanc for MRSA bacteremia from previous admission -Repeat BC from 11/22 & NGTD Hypotension Right basilar atelectasis versus infiltrate H/O High grade MRSA bacteremia previous admission from 10/31. source infected HD cath,s/p removal. Discharged on vanc -Repeat BC on 11/02, 11/04 & 11/08 positive. BC 11/13 negative -ECHO without evidence of veg H/O infected right HDC cath s/p removal on 11/01 + MRSA. -s/p interval placement of a temp LIJ/HDC on 11/01; removed. -s/p Tunneled HDC placement on 11/16. Leukocytosis Resp failure w/ pleural effusion s/p thoracentesis 11/07 with 1/1 liter removed pH 7.51. 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 C. diff neg 11/22 Plan Plan of Care Cont Daptomycin and ceftaroline Need sensitivities of outpatient MRSA Repeat BC NGTD May need HD cath removed PHILIP - cards consulted - today D/w RAYA GARCIA MD Nov 27, 2017 12:43
[2017-11-27] MEDS ORDERED: LIDOCAINE 2% VISCOUS 15 ML SOLUTION. ONE (14:58)
[2017-11-27] MEDS ORDERED: LIDOCAINE 2% TOPICAL JELLY 30GM TUBE. TP ONE ×2 (14:58→16:45)
[2017-11-27] MEDS ORDERED: BENZOCAINE ONE 20% MUCOSAL SPRAY. (14:58)
--- NOTE | 2017-11-27 15:35 | PDOC ---
PROGRESS NOTES Chief Complaint Chief Complaint Sepsis MRSA from 11/21 POA ([facility]) while on Vanc for MRSA bacteremia from previous admission Hypotension on midodrine Right basilar atelectasis versus infiltrate H/O High grade MRSA bacteremia previous admission from 10/31. source infected HD cath,s/p removal. Discharged on vanc -Repeat BC on 11/02, 11/04 & 11/08 positive. BC 11/13 negative -ECHO without evidence of veg H/O infected right HDC cath s/p removal on 11/01 + MRSA. -s/p interval placement of a temp [facility]/HDC on 11/01; removed. -s/p Tunneled HDC placement on 11/16. 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 C. diff neg 11/22 rt toes pain History of Present Illness History of Present Illness hypotension, IV fluid bolus given cont HD on daptomycin, Ceftaroline. _ ID following card consulted as per ID for PHILIP Tmr on midodrine tid PAT consult for code status need Central line for iv abx group home US rt leg to rule out PAD labs tmr Vitals Vitals Vital Signs Date Time Temp Pulse Resp B/P (MAP) Pulse Ox O2 Delivery O2 Flow Rate FiO2 11/27/17 13:55 83/54 (64) 11/27/17 10:00 95 11/27/17 07:00 98.7 16 90 Nasal Cannula 98.7 11/27/17 01:33 3.0 Physical Exam Physical Exam GENERAL: Propped up in bed, alert, NAD HEENT: Oral cavity dry. Dentures. no conjunc petechia LUNGS: Clear HEART: S1, S2. ABDOMEN: Soft. BS +. Ostomy, nontender EXTREMITIES: Left BKA, stump. Right lateral leg wound. looks clean, right foot has iv access, toes pain , tenderness without wound. 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 Tunneled HDC (11/16) w/o signs of complications. Left chest PICC - clean PIV right foot General: Alert, No acute distress Heart: Normal S1, Normal S2 Lungs: Clear Extremities: No clubbing, No cyanosis Skin: No rashes, No breakdown Labs LABS Laboratory Tests Test 11/27/17 05:30 White Blood Count 22.4 x10^3/uL (4.0-11.0) Red Blood Count 3.04 x10^6/uL (3.50-5.40) Hemoglobin 7.9 g/dL (12.0-15.5) Hematocrit 25.3 % (36.0-47.0) Mean Corpuscular Volume 83 fL (79-100) Mean Corpuscular Hemoglobin 26 pg (25-35) Mean Corpuscular Hemoglobin Concent 31 g/dL (31-37) Red Cell Distribution Width 19.1 % (11.5-14.5) Platelet Count 398 x10^3/uL (140-400) Neutrophils (%) (Auto) 94 % (31-73) Lymphocytes (%) (Auto) 2 % (24-48) Monocytes (%) (Auto) 4 % (0-9) Eosinophils (%) (Auto) 0 % (0-3) Basophils (%) (Auto) 0 % (0-3) Neutrophils # (Auto) 21.1 x10^3uL (1.8-7.7) Lymphocytes # (Auto) 0.4 x10^3/uL (1.0-4.8) Monocytes # (Auto) 0.9 x10^3/uL (0.0-1.1) Eosinophils # (Auto) 0.1 x10^3/uL (0.0-0.7) Basophils # (Auto) 0.1 x10^3/uL (0.0-0.2) Segmented Neutrophils % 86 % (35-66) Band Neutrophils % 3 % (0-9) Lymphocytes % 4 % (24-48) Monocytes % 6 % (0-10) Basophils % 1 % (0-3) Toxic Vacuolation Present Platelet Estimate Adequate (ADEQUATE) Large Platelets Present Poikilocytosis Slight Basophilic Stippling Present Anisocytosis Slight Target Cells Present Ovalocytes Present Sodium Level 144 mmol/L (136-145) Potassium Level 3.3 mmol/L (3.5-5.1) Chloride Level 106 mmol/L (98-107) Carbon Dioxide Level 27 mmol/L (21-32) Anion Gap 11 (6-14) Blood Urea Nitrogen 13 mg/dL (7-20) Creatinine 2.9 mg/dL (0.6-1.0) Estimated GFR (Cockcroft-Gault) 19.1 Glucose Level 98 mg/dL (70-99) Calcium Level 8.4 mg/dL (8.5-10.1) Assessment and Plan Assessmemt and Plan Problems Medical Problems: (1) End stage renal disease Status: Acute (2) Fever Status: Acute (3) Leukocytosis Status: Acute Comment Review of Relevant I have reviewed the following items olivia (where applicable) has been applied. Labs Laboratory Tests Test 11/26/17 03:25 11/27/17 05:30 White Blood Count 11.1 x10^3/uL (4.0-11.0) 22.4 x10^3/uL (4.0-11.0) Red Blood Count 2.55 x10^6/uL (3.50-5.40) 3.04 x10^6/uL (3.50-5.40) Hemoglobin 6.8 g/dL (12.0-15.5) 7.9 g/dL (12.0-15.5) Hematocrit 21.1 % (36.0-47.0) 25.3 % (36.0-47.0) Mean Corpuscular Volume 83 fL (79-100) 83 fL (79-100) Mean Corpuscular Hemoglobin 27 pg (25-35) 26 pg (25-35) Mean Corpuscular Hemoglobin Concent 32 g/dL (31-37) 31 g/dL (31-37) Red Cell Distribution Width 20.5 % (11.5-14.5) 19.1 % (11.5-14.5) Platelet Count 415 x10^3/uL (140-400) 398 x10^3/uL (140-400) Neutrophils (%) (Auto) 66 % (31-73) 94 % (31-73) Lymphocytes (%) (Auto) 17 % (24-48) 2 % (24-48) Monocytes (%) (Auto) 13 % (0-9) 4 % (0-9) Eosinophils (%) (Auto) 4 % (0-3) 0 % (0-3) Basophils (%) (Auto) 1 % (0-3) 0 % (0-3) Neutrophils # (Auto) 7.4 x10^3uL (1.8-7.7) 21.1 x10^3uL (1.8-7.7) Lymphocytes # (Auto) 1.9 x10^3/uL (1.0-4.8) 0.4 x10^3/uL (1.0-4.8) Monocytes # (Auto) 1.4 x10^3/uL (0.0-1.1) 0.9 x10^3/uL (0.0-1.1) Eosinophils # (Auto) 0.4 x10^3/uL (0.0-0.7) 0.1 x10^3/uL (0.0-0.7) Basophils # (Auto) 0.1 x10^3/uL (0.0-0.2) 0.1 x10^3/uL (0.0-0.2) Sodium Level 139 mmol/L (136-145) 144 mmol/L (136-145) Potassium Level 3.3 mmol/L (3.5-5.1) 3.3 mmol/L (3.5-5.1) Chloride Level 102 mmol/L (98-107) 106 mmol/L (98-107) Carbon Dioxide Level 21 mmol/L (21-32) 27 mmol/L (21-32) Anion Gap 16 (6-14) 11 (6-14) Blood Urea Nitrogen 28 mg/dL (7-20) 13 mg/dL (7-20) Creatinine 5.6 mg/dL (0.6-1.0) 2.9 mg/dL (0.6-1.0) Estimated GFR (Cockcroft-Gault) 9.0 19.1 Glucose Level 86 mg/dL (70-99) 98 mg/dL (70-99) Calcium Level 8.7 mg/dL (8.5-10.1) 8.4 mg/dL (8.5-10.1) Segmented Neutrophils % 86 % (35-66) Band Neutrophils % 3 % (0-9) Lymphocytes % 4 % (24-48) Monocytes % 6 % (0-10) Basophils % 1 % (0-3) Toxic Vacuolation Present Platelet Estimate Adequate (ADEQUATE) Large Platelets Present Poikilocytosis Slight Basophilic Stippling Present Anisocytosis Slight Target Cells Present Ovalocytes Present Laboratory Tests Test 11/27/17 05:30 White Blood Count 22.4 x10^3/uL (4.0-11.0) Red Blood Count 3.04 x10^6/uL (3.50-5.40) Hemoglobin 7.9 g/dL (12.0-15.5) Hematocrit 25.3 % (36.0-47.0) Mean Corpuscular Volume 83 fL (79-100) Mean Corpuscular Hemoglobin 26 pg (25-35) Mean Corpuscular Hemoglobin Concent 31 g/dL (31-37) Red Cell Distribution Width 19.1 % (11.5-14.5) Platelet Count 398 x10^3/uL (140-400) Neutrophils (%) (Auto) 94 % (31-73) Lymphocytes (%) (Auto) 2 % (24-48) Monocytes (%) (Auto) 4 % (0-9) Eosinophils (%) (Auto) 0 % (0-3) Basophils (%) (Auto) 0 % (0-3) Neutrophils # (Auto) 21.1 x10^3uL (1.8-7.7) Lymphocytes # (Auto) 0.4 x10^3/uL (1.0-4.8) Monocytes # (Auto) 0.9 x10^3/uL (0.0-1.1) Eosinophils # (Auto) 0.1 x10^3/uL (0.0-0.7) Basophils # (Auto) 0.1 x10^3/uL (0.0-0.2) Segmented Neutrophils % 86 % (35-66) Band Neutrophils % 3 % (0-9) Lymphocytes % 4 % (24-48) Monocytes % 6 % (0-10) Basophils % 1 % (0-3) Toxic Vacuolation Present Platelet Estimate Adequate (ADEQUATE) Large Platelets Present Poikilocytosis Slight Basophilic Stippling Present Anisocytosis Slight Target Cells Present Ovalocytes Present Sodium Level 144 mmol/L (136-145) Potassium Level 3.3 mmol/L (3.5-5.1) Chloride Level 106 mmol/L (98-107) Carbon Dioxide Level 27 mmol/L (21-32) Anion Gap 11 (6-14) Blood Urea Nitrogen 13 mg/dL (7-20) Creatinine 2.9 mg/dL (0.6-1.0) Estimated GFR (Cockcroft-Gault) 19.1 Glucose Level 98 mg/dL (70-99) Calcium Level 8.4 mg/dL (8.5-10.1) Microbiology 11/23/17 Blood Culture - Preliminary, Resulted NO GROWTH AFTER 4 DAYS 11/23/17 Anaerobic/Aerobic Culture, Resulted Pending 11/23/17 Anaerobic Culture Result 1 (PARTH), Resulted Pending 11/23/17 Aerobic Culture - Final, Resulted 11/23/17 Aerobic Culture Result 1 (PARTH) - Final, Resulted 11/23/17 Gram Stain - Final, Resulted 11/23/17 Gram Stain Result 1 (PARTH) - Final, Resulted 11/23/17 Gram Stain Result 2 (PARTH) - Final, Resulted Medications Current Medications Levofloxacin/ Dextrose 150 ml @ 100 mls/hr Q24H IV Last administered on at 20:36; Start 11/22/17 at 20:00; Stop 11/23/17 at 00:00; Status DC Piperacillin Sod/ Tazobactam Sod 4.5 gm/Sodium Chloride 100 ml @ 200 mls/hr Q6HRS IV Last administered on 11/22/17at 23:16; Start 11/23/17 at 00:00; Stop 11/23/17 at 00:29; Status DC Acetaminophen (Tylenol) 1,000 mg 1X ONCE PO Last administered on 11/22/17at 21 :48; Start 11/22/17 at 21:30; Stop 11/22/17 at 21:31; Status DC Sodium Chloride 500 ml @ 500 mls/hr 1X ONCE IV Last administered on at 21:49; Start 11/22/17 at 21:30; Stop 11/22/17 at 22:29; Status DC Ondansetron HCl (Zofran) 4 mg PRN Q8HRS PRN IV NAUSEA/VOMITING 1ST CHOICE; Start 11/22/17 at 21:30; Stop 11/23/17 at 21:29; Status DC Fentanyl Citrate (Fentanyl 2ml Vial) 50 mcg PRN Q2HR PRN IV SEVERE PAIN Last administered on 11/23/17at 05:05; Start 11/22/17 at 21:30; Stop 11/23/17 at 21 :29; Status DC Acetaminophen (Tylenol) 650 mg PRN Q4HRS PRN PO FEVER Last administered on 01/29at 09:57; Start 11/22/17 at 21:30; Stop 11/23/17 at 21:29; Status DC Piperacillin Sod/ Tazobactam Sod 2.25 gm/Sodium Chloride 50 ml @ 100 mls/hr Q8HRS IV Last administered on 11/23/17at 04:58; Start 11/23/17 at 06:00; Stop 11/23/17 at 11:56; Status DC Levofloxacin/ Dextrose 100 ml @ 100 mls/hr Q48H IV Last administered on at 00:00; Start 11/24/17 at 21:00; Stop 11/26/17 at 11:36; Status DC Potassium Chloride (Klor-Con) 40 meq 1X ONCE PO Last administered on at 09:04; Start 11/23/17 at 09:00; Stop 11/23/17 at 09:03; Status DC Acetaminophen (Tylenol Supp) 650 mg PRN Q6HRS PRN IA HEADACHE / TEMP; Start at 10:45 Cinacalcet (Sensipar) 30 mg HS PO Last administered on 11/26/17at 20:55; Start 11/23/17 at 21:00 Diphenoxylate HCl/ Atropine (Lomotil) 1 tab PRN Q8HRS PRN PO DIARRHEA Last administered on 11/25/17at 07:43; Start 11/23/17 at 10:45 Vitamin B Complex/ Vitamin C (Yaneth-Nabeel) 1 tab DAILY PO Last administered on at 08:48; Start 11/23/17 at 11:00 Acetaminophen/ Hydrocodone Bitart (Lortab 7.5/325) 1 tab PRN Q8HRS PRN PO PAIN MODERATE Last administered on 11/27/17at 01:33; Start 11/23/17 at 10:45 Artificial Tears (Artificial Tears) 1 drop PRN Q15MIN PRN OU DRY EYE; Start at 10:45 Triamcinolone Acetonide (Kenalog) 1 hanh PRN Q8HRS PRN TP ITCHING; Start at 10:45 Midodrine (Proamatine) 5 mg [id number] PO Last administered on 11/27/17at 05:42; Start 11/23/17 at 13:00 Multivitamins (Thera M Plus) 1 tab DAILY PO Last administered on 11/27/17at 08: 29; Start 11/23/17 at 12:00 Sulfasalazine (Azulfidine) 500 mg BID PO Last administered on 11/27/17at 08:29 ; Start 11/23/17 at 21:00 Daptomycin 310 mg/ Sodium Chloride 50 ml @ 100 mls/hr QODAY IV Last administered on 11/27/17at 11:01; Start 11/23/17 at 14:00 Ceftaroline Fosamil 200 mg/ Sodium Chloride 250 ml @ 250 mls/hr Q12HR IV Last administered on 11/27/17at 08:35; Start 11/23/17 at 13:00 Sodium Chloride 1,000 ml @ 1,000 mls/hr Q1H PRN IV hypotension; Start at 12:45; Stop 11/23/17 at 18:44; Status DC Sodium Chloride (Normal Saline Flush) 10 ml 1X PRN PRN IV AP catheter pack; Start 11/23/17 at 12:45; Stop 11/24/17 at 12:44; Status DC Sodium Chloride (Normal Saline Flush) 10 ml 1X PRN PRN 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; Start 11/23/17 at 12:45; Stop 11/24/17 at 12:44; Status DC Sodium Chloride 1,000 ml @ 400 mls/hr Q2H30M PRN IV PATENCY; Start 11/23/17 at 12:45; Stop 11/24/17 at 00:44; Status DC Info (PHARMACY MONITORING -- do not chart) 1 each PRN DAILY PRN MC SEE COMMENTS ; Start 11/23/17 at 12:45; Status UNV Info (PHARMACY MONITORING -- do not chart) 1 each PRN DAILY PRN MC SEE COMMENTS ; Start 11/23/17 at 12:45 Fentanyl Citrate (Fentanyl 2ml Vial) 50 mcg PRN Q2HR PRN IV SEVERE PAIN Last administered on 11/26/17at 06:09; Start 11/24/17 at 00:30 Sodium Chloride 1,000 ml @ 1,000 mls/hr Q1H PRN IV hypotension; Start at 11:31; Stop 11/26/17 at 17:30; Status DC Sodium Chloride 1,000 ml @ 400 mls/hr Q2H30M PRN IV PATENCY; Start 11/26/17 at 11:31; Stop 11/26/17 at 23:30; Status DC Info (PHARMACY MONITORING -- do not chart) 1 each PRN DAILY PRN MC SEE COMMENTS ; Start 11/26/17 at 11:45; Status UNV Sodium Chloride (Normal Saline Flush) 10 ml QSHIFT PRN IV AFTER MEDS AND BLOOD DRAWS; Start 11/26/17 at 12:45 Lidocaine HCl (Xylocaine 2% Topical 5gm Tube) 1 hanh 1X ONCE TP ; Start at 12:45; Stop 11/26/17 at 12:46; Status DC Lidocaine HCl (Viscous Lidocaine) 15 ml 1X ONCE MM ; Start 11/26/17 at 12:45; Stop 11/26/17 at 12:46; Status DC Benzocaine (Hurricaine One) 2 spray 1X ONCE MM ; Start 11/26/17 at 12:45; Stop 11/26/17 at 12:46; Status DC Midazolam HCl (Versed) 2 mg STK-MED ONCE .ROUTE ; Start 11/26/17 at 14:38; Stop 11/26/17 at 14:39; Status DC Fentanyl Citrate (Fentanyl 2ml Vial) 100 mcg STK-MED ONCE .ROUTE ; Start at 14:38; Stop 11/26/17 at 14:39; Status DC Lidocaine/ Epinephrine (LIDOCAINE 1%-EPI 1:100,000 Multi-Dose) 20 ml STK-MED ONCE .ROUTE ; Start 11/26/17 at 14:38; Stop 11/26/17 at 14:39; Status DC Heparin Sodium (Porcine) (Hep Lock Adult) 500 unit STK-MED ONCE IV ; Start at 14:45; Stop 11/26/17 at 14:46; Status DC Midazolam HCl (Versed) 2 mg 1X ONCE IV Last administered on 11/26/17at 16:01; Start 11/26/17 at 15:00; Stop 11/26/17 at 15:01; Status DC Fentanyl Citrate (Fentanyl 2ml Vial) 100 mcg 1X ONCE IV ; Start 11/26/17 at 15 :00; Stop 11/26/17 at 15:01; Status DC Lidocaine/ Epinephrine (LIDOCAINE 1%-EPI 1:100,000 Multi-Dose) 20 ml 1X ONCE IJ ; Start 11/26/17 at 15:00; Stop 11/26/17 at 15:01; Status DC Heparin Sodium (Porcine) (Hep Lock Adult) 220 unit 1X ONCE IV Last administered on 11/26/17at 15:00; Start 11/26/17 at 15:00; Stop 11/26/17 at 15 :01; Status DC Ondansetron HCl (Zofran) 4 mg PRN Q6HRS PRN IV NAUSEA/VOMITING; Start at 07:00; Stop 11/28/17 at 06:59 Fentanyl Citrate (Fentanyl 2ml Vial) 25 mcg PRN Q5MIN PRN IV MILD PAIN; Start 11/27/17 at 07:00; Stop 11/28/17 at 06:59 Fentanyl Citrate (Fentanyl 2ml Vial) 50 mcg PRN Q5MIN PRN IV MODERATE TO SEVERE PAIN; Start 11/27/17 at 07:00; Stop 11/28/17 at 06:59 Morphine Sulfate (Morphine Sulfate) 1 mg PRN Q10MIN PRN IV SEVERE PAIN; Start 11/27/17 at 07:00; Stop 11/28/17 at 06:59 Ringer's Solution 1,000 ml @ 30 mls/hr Q24H IV ; Start 11/27/17 at 07:00; Stop 11/27/17 at 18:59; Status UNV Lidocaine HCl (Xylocaine-Mpf 1% 2ml Vial) 2 ml PRN 1X PRN ID PRIOR TO IV START ; Start 11/27/17 at 07:00; Stop 11/28/17 at 06:59 Hydromorphone HCl (Dilaudid) 0.5 mg PRN Q10MIN PRN IV SEV PAIN, Second choice Last administered on 11/27/17at 08:24; Start 11/27/17 at 07:00; Stop 11/28/17 at 06:59 Prochlorperazine Edisylate (Compazine) 5 mg PACU PRN PRN IV NAUSEA 2nd CHOICE, MRX1; Start 11/27/17 at 07:00; Stop 11/28/17 at 06:59 Heparin Sodium (Porcine) (Hep Lock Adult) 110 unit 1X ONCE IV Last administered on 11/26/17at 16:00; Start 11/26/17 at 16:00; Stop 11/26/17 at 16 :20; Status DC Heparin Sodium (Porcine) (Hep Lock Adult) 150 unit PRN Q12HR PRN IV SEE COMMENTS Last administered on 11/27/17at 01:33; Start 11/26/17 at 16:15 Sodium Chloride 1,000 ml @ 1,000 mls/hr 1X ONCE IV Last administered on 11/27at 10:28; Start 11/27/17 at 09:45; Stop 11/27/17 at 10:44; Status DC Hydrocortisone Sodium Succinate (Solu-CORTEF) 100 mg 1X ONCE IV Last administered on 11/27/17at 11:07; Start 11/27/17 at 09:45; Stop 11/27/17 at 09 :46; Status DC Benzocaine (Hurricaine One) 1 spray STK-MED ONCE .ROUTE ; Start 11/27/17 at 14: 58; Stop 11/27/17 at 14:59; Status DC Lidocaine HCl (Xylocaine 2% Topical 30gm Tube) 30 hanh STK-MED ONCE TP ; Start 11/27/17 at 14:58; Stop 11/27/17 at 14:59; Status DC Lidocaine HCl (Viscous Lidocaine) 15 ml STK-MED ONCE .ROUTE ; Start 11/27/17 at 14:58; Stop 11/27/17 at 14:59; Status DC Active Scripts Active Artificial Tears (Polyvinyl Alcohol) 15 Ml Drops 1 Drop OU PRN Q15MIN PRN 30 Days Acetaminophen Supp (Acetaminophen) 650 Mg Supp.rect 650 Mg IA PRN Q6HRS PRN 30 Days Hydrocodone-Apap 7.5-325 (Hydrocodone Bit/Acetaminophen) 1 Each Tablet 1 Tab PO PRN Q8HRS PRN 7 Days Reported Multivitamins (Multivitamin) 1 Each Tablet 1 Tab PO DAILY Sensipar (Cinacalcet Hcl) 30 Mg Tablet 1 Tab PO HS Azulfidine (Sulfasalazine) 500 Mg Tablet 500 Mg PO BID Lomotil Tablet (Diphenoxylate Hcl/Atropine) 1 Each Tablet 1 Tab PO PRN Q8HRS Nephro-Nabeel Tablet (Folic Acid/Vitamin B Comp W-C) 0.8 Mg Tablet 1 Tab PO DAILY Triamcinolone Acetonide 0.1% Cream (Triamcinolone Acetonide) 15 Gm Cream..g. 1 Hanh TP PRN Q8HRS apply to bilat legs topically as needed for skin care Midodrine Hcl 5 Mg Tablet 5 Mg PO TID notify PCP if BP >180/110, P <60 Vitals/I & O Vital Sign - Last 24 Hours 11/26/17 11/26/17 11/26/17 11/26/17 15:46 16:15 16:30 16:45 Temp 96.4 96.4 Pulse 80 78 81 74 Resp 15 20 B/P (MAP) 81/25 (43) 85/22 (43) 94/27 (49) Pulse Ox 96 82 O2 Delivery Nasal Cannula Nasal Cannula O2 Flow Rate 2.0 3.0 11/26/17 11/26/17 11/26/17 11/26/17 17:00 17:08 17:08 17:30 Pulse 75 81 74 Resp 20 B/P (MAP) 89/34 (52) 85/22 70/25 (40) Pulse Ox 82 O2 Delivery Nasal Cannula O2 Flow Rate 3.0 11/26/17 11/26/17 11/26/17 11/26/17 18:00 19:00 20:00 20:53 Pulse 83 83 B/P (MAP) 83/35 (51) 83/35 (51) O2 Delivery Nasal Cannula O2 Flow Rate 3.0 3.0 11/26/17 11/26/17 11/26/17 11/27/17 23:00 23:22 23:37 00:37 Temp 98.3 98.6 100.8 98.3 98.6 100.8 Pulse 73 72 71 75 Resp 17 17 16 B/P (MAP) 79/45 (56) 77/42 80/45 87/49 Pulse Ox 100 11/27/17 11/27/17 11/27/17 11/27/17 01:27 01:33 02:46 03:00 Temp 99.3 99.3 99.3 99.3 Pulse 81 73 Resp 17 17 B/P (MAP) 99/57 79/45 (56) Pulse Ox 100 O2 Delivery Nasal Cannula Room Air Nasal Cannula O2 Flow Rate 3.0 11/27/17 11/27/17 11/27/17/16/18 05:42 07:00 09:42 10:00 Temp 98.7 98.7 Pulse 81 83 95 Resp 16 B/P (MAP) 70/40 64/33 (43) 63/38 (46) 84/40 (55) Pulse Ox 90 O2 Delivery Nasal Cannula 11/27/17 11/27/17 10:29 13:55 B/P (MAP) 72/38 (49) 83/54 (64) Intake and Output 11/26/17 11/26/17 11/27/17 15:00 23:00 07:00 Intake Total 490 ml 360 ml 563 ml Output Total 300 ml 1300 ml Balance 490 ml 60 ml -737 ml GRAY ROWE MD Nov 27, 2017 15:35
[2017-11-27] MEDS ORDERED: PROPOFOL 20 ML IV ONE (16:26)
[2017-11-27] MEDS ORDERED: LIDOCAINE 2% VISCOUS 15 ML SOLUTION. SWSW ONE (16:45)
[2017-11-27] MEDS ORDERED: BENZOCAINE ONE 20% MUCOSAL SPRAY. MM (16:45)
--- NOTE | 2017-11-27 17:47 | CARD ---
MR#: [id number] Date of Study: 11/27/2017 Ordering Physician: JS DAHL, Referring Physician: YISSEL DUFF, Tech: Angela Dickson APPROVED REPORT EXAM: Transesophageal echocardiogram with color flow Doppler. INDICATION Checking for Endocarditis Reason For Test : Rule out endocarditis. PROCEDURE After obtaining informed consent, patient underwent transesophageal echo in the PACU. Type of Sedation : General Anesthesia Sedation was administered by Nicanor Jenkins. Sedation was achieved with Propofol 100mg intravenously. Transesophageal probe was inserted and advanced into esophagus by Marcelino Santana MD. The PHILIP was performed without complications. Throughout the procedure, the blood pressure, pulse oximetry, cardiac rhythm, and rate were monitored . The patient tolerated the procedure without adverse effects. Recovery from general anesthesia was une ventful and vital signs were stable. LEFT VENTRICLE The left ventricle is normal size. There is normal left ventricular wall thickness. The left ventricu lar systolic function is normal and the ejection fraction is within normal range. EF 65% There is nor mal LV segmental wall motion. No left ventricle thrombus noted on this study. RIGHT VENTRICLE The right ventricle is normal size. There is normal right ventricular wall thickness. The right ventr icular systolic function is normal. ATRIA The left atrium is mildly dilated. The right atrium is moderately dilated. The interatrial septum is intact with no evidence for an atrial septal defect or patent foramen ovale as noted on 2-D or Dopple r imaging. There is no thrombus noted in the left atrial appendage. AORTIC VALVE The aortic valve is normal in structure and function. Doppler and Color Flow revealed no significant aortic regurgitation. There is no significant aortic valvular stenosis. There is no aortic valvular v egetation. MITRAL VALVE The mitral valve is normal in structure and function. There is no evidence of mitral valve prolapse. There is no mitral valve stenosis. Doppler and Color-flow revealed mild mitral regurgitation. TRICUSPID VALVE Doppler and Color Flow revealed severe tricuspid regurgitation. There is no tricuspid valve stenosis. PULMONIC VALVE The pulmonary valve is normal in structure and function. Doppler and Color Flow revealed no pulmonic valvular regurgitation. There is no pulmonic valvular stenosis. GREAT VESSELS The aortic root is normal in size. The IVC is normal in size and collapses >50% with inspiration. Critical Notification Critical Value: No <Conclusion> The left ventricular systolic function is normal and the ejection fraction is within normal range. EF 65% Doppler and Color Flow revealed severe tricuspid regurgitation. No clear evidence of endocarditis on this study on the cardiac structures. Indwelling catheters did not reveal any evidence of vegetation. Signed by : Nahid Santana, Electronically Approved : 11/27/2017 17:46:49
[2017-11-27] MEDS: CINACALCET HCL 30 MG TABLET PO SCH (21:00)
[2017-11-28 03:00] VITALS: BP 84/54
[2017-11-28 04:18] LABS: BASO # 0.1 x10^3/uL (0.0-0.2); BASO % 0 % (0-3); EOS # 0.1 x10^3/uL (0.0-0.7); EOS % 1 % (0-3); HEMATOCRIT 23.1 % (36.0-47.0); HEMOGLOBIN 7.6 g/dL (12.0-15.5); LYMPH # 1.5 x10^3/uL (1.0-4.8); LYMPH % 10 % (24-48); MEAN CORPUSCULAR HEMOGLOBIN 27 pg (25-35); MEAN CORPUSCULAR HGB CONC 33 g/dL (31-37); MEAN CORPUSCULAR VOLUME 83 fL (79-100); MONO # 1.2 x10^3/uL (0.0-1.1); MONO % 9 % (0-9); NEUT # 11.4 x10^3uL (1.8-7.7); NEUT % 80 % (31-73); PLATELET COUNT 342 x10^3/uL (140-400); RED BLOOD COUNT 2.79 x10^6/uL (3.50-5.40); RED CELL DISTRIBUTION WIDTH 19.3 % (11.5-14.5); WHITE BLOOD COUNT 14.2 x10^3/uL (4.0-11.0)
[2017-11-28 04:29] LABS: CALCIUM 8.8 mg/dL (8.5-10.1); CREATININE 4.4 mg/dL (0.6-1.0); GFR 11.8; POTASSIUM 3.2 mmol/L (3.5-5.1)
[2017-11-28] MEDS: MIDODRINE 5 MG TABLET PO SCH ×3 (05:26→22:06)
[2017-11-28 07:00] VITALS: BP 90/50
--- NOTE | 2017-11-28 07:07 | PDOC ---
Infectious Disease Note Subjective Subjective Comfortable Denies back pain Feeling better this am. No dizziness. Slept better Denies N/V/cramps No F/C/S/aches/SOB ROS ROS o/w neg Vital Sign Vital Signs Vital Signs Date Time Temp Pulse Resp B/P (MAP) Pulse Ox O2 Delivery O2 Flow Rate FiO2 11/28/17 05:26 68 82/50 11/28/17 03:00 97.9 17 98 Room Air 97.9 11/28/17 00:32 2.0 Physical Exam PHYSICAL EXAM GENERAL: Propped up in bed, alert, NAD. looks better HEENT: Oral cavity dry. Dentures. no conjunc petechia LUNGS: Clear HEART: S1, S2. ABDOMEN: Soft. BS +. Ostomy, nontender EXTREMITIES: Left BKA, stump. Right lateral leg wound. looks clean, right foot has iv access, toes pain , tenderness without wound. 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 Tunneled HDC (11/16) w/o signs of complications. Left chest PICC - clean Labs Lab Laboratory Tests Test 11/28/17 04:10 White Blood Count 14.2 x10^3/uL (4.0-11.0) Red Blood Count 2.79 x10^6/uL (3.50-5.40) Hemoglobin 7.6 g/dL (12.0-15.5) Hematocrit 23.1 % (36.0-47.0) Mean Corpuscular Volume 83 fL (79-100) Mean Corpuscular Hemoglobin 27 pg (25-35) Mean Corpuscular Hemoglobin Concent 33 g/dL (31-37) Red Cell Distribution Width 19.3 % (11.5-14.5) Platelet Count 342 x10^3/uL (140-400) Neutrophils (%) (Auto) 80 % (31-73) Lymphocytes (%) (Auto) 10 % (24-48) Monocytes (%) (Auto) 9 % (0-9) Eosinophils (%) (Auto) 1 % (0-3) Basophils (%) (Auto) 0 % (0-3) Neutrophils # (Auto) 11.4 x10^3uL (1.8-7.7) Lymphocytes # (Auto) 1.5 x10^3/uL (1.0-4.8) Monocytes # (Auto) 1.2 x10^3/uL (0.0-1.1) Eosinophils # (Auto) 0.1 x10^3/uL (0.0-0.7) Basophils # (Auto) 0.1 x10^3/uL (0.0-0.2) Sodium Level 147 mmol/L (136-145) Potassium Level 3.2 mmol/L (3.5-5.1) Chloride Level 110 mmol/L (98-107) Carbon Dioxide Level 24 mmol/L (21-32) Anion Gap 13 (6-14) Blood Urea Nitrogen 21 mg/dL (7-20) Creatinine 4.4 mg/dL (0.6-1.0) Estimated GFR (Cockcroft-Gault) 11.8 Glucose Level 103 mg/dL (70-99) Calcium Level 8.8 mg/dL (8.5-10.1) Micro Microbiology 11/23/17 Blood Culture - Preliminary, Resulted NO GROWTH AFTER 2 DAYS 11/23/17 Anaerobic/Aerobic Culture, Resulted Pending 11/23/17 Anaerobic Culture Result 1 (PARTH), Resulted Pending 11/23/17 Aerobic Culture - Preliminary, Resulted 11/23/17 Aerobic Culture Result 1 (PARTH) - Preliminary, Resulted 11/23/17 Gram Stain - Final, Resulted 11/23/17 Gram Stain Result 1 (PARTH) - Final, Resulted 11/23/17 Gram Stain Result 2 (PARTH) - Final, Resulted Objective Assessment Sepsis MRSA from 11/21 POA ([facility]) while on Vanc for MRSA bacteremia from previous admission -Repeat BC from 11/22 & NGTD. PHILIP 11/27 neg - d/w Dr. Santana 11/27 Hypotension Right basilar atelectasis versus infiltrate H/O High grade MRSA bacteremia previous admission from 10/31. source infected HD cath,s/p removal. Discharged on vanc -Repeat BC on 11/02, 11/04 & 11/08 positive. BC 11/13 negative -ECHO without evidence of veg H/O infected right HDC cath s/p removal on 11/01 + MRSA. -s/p interval placement of a temp LIJ/HDC on 11/01; removed. -s/p Tunneled HDC placement on 11/16. Leukocytosis - better Resp failure w/ pleural effusion s/p thoracentesis 11/07 with 1/1 liter removed pH 7.51. 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 C. diff neg 11/22 Plan Plan of Care Cont Daptomycin and ceftaroline Need sensitivities of outpatient MRSA Repeat BC NGTD May need HD cath removed DNR/DNI D/w RAYA GARCIA MD Nov 28, 2017 07:07
--- NOTE | 2017-11-28 09:29 | PDOC ---
PULMONARY PROGRESS NOTES Subjective FEELS BETTER Vitals Vital Signs Date Time Temp Pulse Resp B/P (MAP) Pulse Ox O2 Delivery O2 Flow Rate FiO2 11/28/17 07:00 97.9 66 18 90/50 (63) 94 Nasal Cannula 2.0 97.9 ROS: No Nausea General: Alert, No acute distress HEENT: Other (nc at perrl ) Lungs: Clear Cardiovascular: S1, S2 Abdomen: Soft, Non-tender Neuro Exam: Alert Extremities: Other (l bka) Skin: Warm Labs Laboratory Tests Test 11/27/17 05:30 11/28/17 04:10 White Blood Count 22.4 x10^3/uL (4.0-11.0) 14.2 x10^3/uL (4.0-11.0) Red Blood Count 3.04 x10^6/uL (3.50-5.40) 2.79 x10^6/uL (3.50-5.40) Hemoglobin 7.9 g/dL (12.0-15.5) 7.6 g/dL (12.0-15.5) Hematocrit 25.3 % (36.0-47.0) 23.1 % (36.0-47.0) Mean Corpuscular Volume 83 fL (79-100) 83 fL (79-100) Mean Corpuscular Hemoglobin 26 pg (25-35) 27 pg (25-35) Mean Corpuscular Hemoglobin Concent 31 g/dL (31-37) 33 g/dL (31-37) Red Cell Distribution Width 19.1 % (11.5-14.5) 19.3 % (11.5-14.5) Platelet Count 398 x10^3/uL (140-400) 342 x10^3/uL (140-400) Neutrophils (%) (Auto) 94 % (31-73) 80 % (31-73) Lymphocytes (%) (Auto) 2 % (24-48) 10 % (24-48) Monocytes (%) (Auto) 4 % (0-9) 9 % (0-9) Eosinophils (%) (Auto) 0 % (0-3) 1 % (0-3) Basophils (%) (Auto) 0 % (0-3) 0 % (0-3) Neutrophils # (Auto) 21.1 x10^3uL (1.8-7.7) 11.4 x10^3uL (1.8-7.7) Lymphocytes # (Auto) 0.4 x10^3/uL (1.0-4.8) 1.5 x10^3/uL (1.0-4.8) Monocytes # (Auto) 0.9 x10^3/uL (0.0-1.1) 1.2 x10^3/uL (0.0-1.1) Eosinophils # (Auto) 0.1 x10^3/uL (0.0-0.7) 0.1 x10^3/uL (0.0-0.7) Basophils # (Auto) 0.1 x10^3/uL (0.0-0.2) 0.1 x10^3/uL (0.0-0.2) Segmented Neutrophils % 86 % (35-66) Band Neutrophils % 3 % (0-9) Lymphocytes % 4 % (24-48) Monocytes % 6 % (0-10) Basophils % 1 % (0-3) Toxic Vacuolation Present Platelet Estimate Adequate (ADEQUATE) Large Platelets Present Poikilocytosis Slight Basophilic Stippling Present Anisocytosis Slight Target Cells Present Ovalocytes Present Sodium Level 144 mmol/L (136-145) 147 mmol/L (136-145) Potassium Level 3.3 mmol/L (3.5-5.1) 3.2 mmol/L (3.5-5.1) Chloride Level 106 mmol/L (98-107) 110 mmol/L (98-107) Carbon Dioxide Level 27 mmol/L (21-32) 24 mmol/L (21-32) Anion Gap 11 (6-14) 13 (6-14) Blood Urea Nitrogen 13 mg/dL (7-20) 21 mg/dL (7-20) Creatinine 2.9 mg/dL (0.6-1.0) 4.4 mg/dL (0.6-1.0) Estimated GFR (Cockcroft-Gault) 19.1 11.8 Glucose Level 98 mg/dL (70-99) 103 mg/dL (70-99) Calcium Level 8.4 mg/dL (8.5-10.1) 8.8 mg/dL (8.5-10.1) Laboratory Tests Test 11/28/17 04:10 White Blood Count 14.2 x10^3/uL (4.0-11.0) Red Blood Count 2.79 x10^6/uL (3.50-5.40) Hemoglobin 7.6 g/dL (12.0-15.5) Hematocrit 23.1 % (36.0-47.0) Mean Corpuscular Volume 83 fL (79-100) Mean Corpuscular Hemoglobin 27 pg (25-35) Mean Corpuscular Hemoglobin Concent 33 g/dL (31-37) Red Cell Distribution Width 19.3 % (11.5-14.5) Platelet Count 342 x10^3/uL (140-400) Neutrophils (%) (Auto) 80 % (31-73) Lymphocytes (%) (Auto) 10 % (24-48) Monocytes (%) (Auto) 9 % (0-9) Eosinophils (%) (Auto) 1 % (0-3) Basophils (%) (Auto) 0 % (0-3) Neutrophils # (Auto) 11.4 x10^3uL (1.8-7.7) Lymphocytes # (Auto) 1.5 x10^3/uL (1.0-4.8) Monocytes # (Auto) 1.2 x10^3/uL (0.0-1.1) Eosinophils # (Auto) 0.1 x10^3/uL (0.0-0.7) Basophils # (Auto) 0.1 x10^3/uL (0.0-0.2) Sodium Level 147 mmol/L (136-145) Potassium Level 3.2 mmol/L (3.5-5.1) Chloride Level 110 mmol/L (98-107) Carbon Dioxide Level 24 mmol/L (21-32) Anion Gap 13 (6-14) Blood Urea Nitrogen 21 mg/dL (7-20) Creatinine 4.4 mg/dL (0.6-1.0) Estimated GFR (Cockcroft-Gault) 11.8 Glucose Level 103 mg/dL (70-99) Calcium Level 8.8 mg/dL (8.5-10.1) Medications Active Scripts Medications Dose Route/Sig Max Daily Dose Days Date Category Dose Instructions Multivitamins (Multivitamin) 1 Each Tablet 1 Tab PO DAILY 11/23/17 Reported Artificial Tears (Polyvinyl Alcohol) 15 Ml Drops 1 Drop OU PRN Q15MIN PRN 30 11/16/17 Rx Acetaminophen Supp (Acetaminophen) 650 Mg Supp.rect 650 Mg NM PRN Q6HRS PRN 30 11/16/17 Rx Hydrocodone-Apap 7.5-325 (Hydrocodone Bit/Acetaminophen) 1 Each Tablet 1 Tab PO PRN Q8HRS PRN 7 11/16/17 Rx Sensipar (Cinacalcet Hcl) 30 Mg Tablet 1 Tab PO HS 11/03/17 Reported Azulfidine (Sulfasalazine) 500 Mg Tablet 500 Mg PO BID 11/03/17 Reported Lomotil Tablet (Diphenoxylate Hcl/Atropine) 1 Each Tablet 1 Tab PO PRN Q8HRS 11/03/17 Reported Nephro-Nabeel Tablet (Folic Acid/Vitamin B Comp W-C) 0.8 Mg Tablet 1 Tab PO DAILY 10/31/17 Reported Triamcinolone Acetonide 0.1% Cream (Triamcinolone Acetonide) 15 Gm Cream..g. 1 Hanh TP PRN Q8HRS 10/31/17 Reported apply to bilat legs topically as needed for skin care Midodrine Hcl 5 Mg Tablet 5 Mg PO TID 10/31/17 Reported notify PCP if BP >180/110, P <60 Impression . IMPRESSION: 1. Abnormal x-ray revealing small right-sided effusion. The patient is status post bilateral thoracentesis back on November 07. Cultures are negative transudative effusion. 2. History of methicillin-resistant Staphylococcus aureus bacteremia, previous admission from 10/31/2017, the source was hemodialyzed catheter. 3. Atrial fibrillation. 4. End-stage renal disease. 5. Anemia. 6. Chronic lateral right leg nonhealing wound. 7. Hypotension, improved Plan . PLAN: 1. Pulmonary status appears to be compensated. No signs of pulmonary infection. will monitor closely. 2. cont abx per id 3. Hemodialysis per Nephrology. 4. s/p fluid bolus/ BP better 5. Palliative care spoke with patient. DNR/DNI. CHERI GAMA MD Nov 28, 2017 09:29
[2017-11-28] MEDS: sulfaSALAzine 500 MG TABLET PO SCH ×2 (10:23→22:05)
[2017-11-28] MEDS: FOLIC/VIT B COMP W-C (RENAL) TABLET. PO SCH (10:24)
[2017-11-28] MEDS: MULTIVITAMIN with MINERAL TABLET. PO SCH (10:24)
[2017-11-28] MEDS: HYDROcodone/APAP 7.5/325MG 1 TAB TABLET PO PRN ×2 (10:25→18:04)
[2017-11-28] MEDS: NORMAL SALINE IV SCH ×2 (10:27→22:06)
[2017-11-28] MEDS: CEFTAROLINE FOSAMIL IV SCH ×2 (10:27→22:06)
[2017-11-28 11:00] VITALS: BP 73/42
--- NOTE | 2017-11-28 11:26 | PDOC ---
PROGRESS NOTES Chief Complaint Chief Complaint Sepsis MRSA from 11/21 POA ([facility]) while on Vanc for MRSA bacteremia from previous admission Hypotension on midodrine Right basilar atelectasis versus infiltrate H/O High grade MRSA bacteremia previous admission from 10/31. source infected HD cath,s/p removal. Discharged on vanc -Repeat BC on 11/02, 11/04 & 11/08 positive. BC 11/13 negative -ECHO without evidence of veg H/O infected right HDC cath s/p removal on 11/01 + MRSA. -s/p interval placement of a temp [facility] on 11/01; removed. -s/p Tunneled HDC placement on 11/16. 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 C. diff neg 11/22 rt toes pain History of Present Illness History of Present Illness Pt seen and examined VSS Looks a little stronger hypotension, IV fluid bolus given cont HD on daptomycin, Ceftaroline. _ ID following card consulted as per ID for PHILIP Tmr on midodrine tid PAT consult for code status need Central line for iv abx nursing home US rt leg to rule out PAD labs tmr Vitals Vitals Vital Signs Date Time Temp Pulse Resp B/P (MAP) Pulse Ox O2 Delivery O2 Flow Rate FiO2 11/28/17 10:25 18 Nasal Cannula 11/28/17 07:00 97.9 66 90/50 (63) 94 2.0 97.9 Physical Exam Physical Exam GENERAL: Propped up in bed, alert, NAD. looks better HEENT: Oral cavity dry. Dentures. no conjunc petechia LUNGS: Clear HEART: S1, S2. ABDOMEN: Soft. BS +. Ostomy, nontender EXTREMITIES: Left BKA, stump. Right lateral leg wound. looks clean, right foot has iv access, toes pain , tenderness without wound. 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 Tunneled HDC (11/16) w/o signs of complications. Left chest PICC - clean General: Alert, No acute distress Heart: Normal S1, Normal S2 Lungs: Clear Extremities: No clubbing, No cyanosis Skin: No rashes, No breakdown Labs LABS Laboratory Tests Test 11/28/17 04:10 White Blood Count 14.2 x10^3/uL (4.0-11.0) Red Blood Count 2.79 x10^6/uL (3.50-5.40) Hemoglobin 7.6 g/dL (12.0-15.5) Hematocrit 23.1 % (36.0-47.0) Mean Corpuscular Volume 83 fL (79-100) Mean Corpuscular Hemoglobin 27 pg (25-35) Mean Corpuscular Hemoglobin Concent 33 g/dL (31-37) Red Cell Distribution Width 19.3 % (11.5-14.5) Platelet Count 342 x10^3/uL (140-400) Neutrophils (%) (Auto) 80 % (31-73) Lymphocytes (%) (Auto) 10 % (24-48) Monocytes (%) (Auto) 9 % (0-9) Eosinophils (%) (Auto) 1 % (0-3) Basophils (%) (Auto) 0 % (0-3) Neutrophils # (Auto) 11.4 x10^3uL (1.8-7.7) Lymphocytes # (Auto) 1.5 x10^3/uL (1.0-4.8) Monocytes # (Auto) 1.2 x10^3/uL (0.0-1.1) Eosinophils # (Auto) 0.1 x10^3/uL (0.0-0.7) Basophils # (Auto) 0.1 x10^3/uL (0.0-0.2) Sodium Level 147 mmol/L (136-145) Potassium Level 3.2 mmol/L (3.5-5.1) Chloride Level 110 mmol/L (98-107) Carbon Dioxide Level 24 mmol/L (21-32) Anion Gap 13 (6-14) Blood Urea Nitrogen 21 mg/dL (7-20) Creatinine 4.4 mg/dL (0.6-1.0) Estimated GFR (Cockcroft-Gault) 11.8 Glucose Level 103 mg/dL (70-99) Calcium Level 8.8 mg/dL (8.5-10.1) Assessment and Plan Assessmemt and Plan Problems Medical Problems: (1) End stage renal disease Status: Acute (2) Fever Status: Acute (3) Leukocytosis Status: Acute Sepsis MRSA from 11/21 POA ([facility]) while on Vanc for MRSA bacteremia from previous admission Hypotension on midodrine Right basilar atelectasis versus infiltrate H/O High grade MRSA bacteremia previous admission from 10/31. source infected HD cath,s/p removal. Discharged on vanc -Repeat BC on 11/02, 11/04 & 11/08 positive. BC 11/13 negative -ECHO without evidence of veg H/O infected right HDC cath s/p removal on 11/01 + MRSA. -s/p interval placement of a temp [facility] on 11/01; removed. -s/p Tunneled HDC placement on 11/16. 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 C. diff neg 11/22 rt toes pain Abnormal x-ray revealing small right-sided effusion. The patient is status post bilateral thoracentesis back on November 07. Cultures are negative transudative effusion. History of methicillin-resistant Staphylococcus aureus bacteremia, previous admission from 10/31/2017, the source was hemodialyzed catheter. Atrial fibrillation. End-stage renal disease. Anemia. Chronic lateral right leg nonhealing wound. Hypotension, improved Plan HD Labs Home meds Cont abx per id s/p fluid bolus/ BP better Palliative care spoke with patient. DNR/DNI. Comment Review of Relevant I have reviewed the following items olivia (where applicable) has been applied. Labs Laboratory Tests Test 11/27/17 05:30 11/28/17 04:10 White Blood Count 22.4 x10^3/uL (4.0-11.0) 14.2 x10^3/uL (4.0-11.0) Red Blood Count 3.04 x10^6/uL (3.50-5.40) 2.79 x10^6/uL (3.50-5.40) Hemoglobin 7.9 g/dL (12.0-15.5) 7.6 g/dL (12.0-15.5) Hematocrit 25.3 % (36.0-47.0) 23.1 % (36.0-47.0) Mean Corpuscular Volume 83 fL (79-100) 83 fL (79-100) Mean Corpuscular Hemoglobin 26 pg (25-35) 27 pg (25-35) Mean Corpuscular Hemoglobin Concent 31 g/dL (31-37) 33 g/dL (31-37) Red Cell Distribution Width 19.1 % (11.5-14.5) 19.3 % (11.5-14.5) Platelet Count 398 x10^3/uL (140-400) 342 x10^3/uL (140-400) Neutrophils (%) (Auto) 94 % (31-73) 80 % (31-73) Lymphocytes (%) (Auto) 2 % (24-48) 10 % (24-48) Monocytes (%) (Auto) 4 % (0-9) 9 % (0-9) Eosinophils (%) (Auto) 0 % (0-3) 1 % (0-3) Basophils (%) (Auto) 0 % (0-3) 0 % (0-3) Neutrophils # (Auto) 21.1 x10^3uL (1.8-7.7) 11.4 x10^3uL (1.8-7.7) Lymphocytes # (Auto) 0.4 x10^3/uL (1.0-4.8) 1.5 x10^3/uL (1.0-4.8) Monocytes # (Auto) 0.9 x10^3/uL (0.0-1.1) 1.2 x10^3/uL (0.0-1.1) Eosinophils # (Auto) 0.1 x10^3/uL (0.0-0.7) 0.1 x10^3/uL (0.0-0.7) Basophils # (Auto) 0.1 x10^3/uL (0.0-0.2) 0.1 x10^3/uL (0.0-0.2) Segmented Neutrophils % 86 % (35-66) Band Neutrophils % 3 % (0-9) Lymphocytes % 4 % (24-48) Monocytes % 6 % (0-10) Basophils % 1 % (0-3) Toxic Vacuolation Present Platelet Estimate Adequate (ADEQUATE) Large Platelets Present Poikilocytosis Slight Basophilic Stippling Present Anisocytosis Slight Target Cells Present Ovalocytes Present Sodium Level 144 mmol/L (136-145) 147 mmol/L (136-145) Potassium Level 3.3 mmol/L (3.5-5.1) 3.2 mmol/L (3.5-5.1) Chloride Level 106 mmol/L (98-107) 110 mmol/L (98-107) Carbon Dioxide Level 27 mmol/L (21-32) 24 mmol/L (21-32) Anion Gap 11 (6-14) 13 (6-14) Blood Urea Nitrogen 13 mg/dL (7-20) 21 mg/dL (7-20) Creatinine 2.9 mg/dL (0.6-1.0) 4.4 mg/dL (0.6-1.0) Estimated GFR (Cockcroft-Gault) 19.1 11.8 Glucose Level 98 mg/dL (70-99) 103 mg/dL (70-99) Calcium Level 8.4 mg/dL (8.5-10.1) 8.8 mg/dL (8.5-10.1) Laboratory Tests Test 11/28/17 04:10 White Blood Count 14.2 x10^3/uL (4.0-11.0) Red Blood Count 2.79 x10^6/uL (3.50-5.40) Hemoglobin 7.6 g/dL (12.0-15.5) Hematocrit 23.1 % (36.0-47.0) Mean Corpuscular Volume 83 fL (79-100) Mean Corpuscular Hemoglobin 27 pg (25-35) Mean Corpuscular Hemoglobin Concent 33 g/dL (31-37) Red Cell Distribution Width 19.3 % (11.5-14.5) Platelet Count 342 x10^3/uL (140-400) Neutrophils (%) (Auto) 80 % (31-73) Lymphocytes (%) (Auto) 10 % (24-48) Monocytes (%) (Auto) 9 % (0-9) Eosinophils (%) (Auto) 1 % (0-3) Basophils (%) (Auto) 0 % (0-3) Neutrophils # (Auto) 11.4 x10^3uL (1.8-7.7) Lymphocytes # (Auto) 1.5 x10^3/uL (1.0-4.8) Monocytes # (Auto) 1.2 x10^3/uL (0.0-1.1) Eosinophils # (Auto) 0.1 x10^3/uL (0.0-0.7) Basophils # (Auto) 0.1 x10^3/uL (0.0-0.2) Sodium Level 147 mmol/L (136-145) Potassium Level 3.2 mmol/L (3.5-5.1) Chloride Level 110 mmol/L (98-107) Carbon Dioxide Level 24 mmol/L (21-32) Anion Gap 13 (6-14) Blood Urea Nitrogen 21 mg/dL (7-20) Creatinine 4.4 mg/dL (0.6-1.0) Estimated GFR (Cockcroft-Gault) 11.8 Glucose Level 103 mg/dL (70-99) Calcium Level 8.8 mg/dL (8.5-10.1) Microbiology 11/23/17 Blood Culture - Preliminary, Resulted NO GROWTH AFTER 4 DAYS 11/23/17 Anaerobic/Aerobic Culture - Final, Complete 11/23/17 Anaerobic Culture Result 1 (PARTH) - Final, Complete 11/23/17 Aerobic Culture - Final, Complete 11/23/17 Aerobic Culture Result 1 (PARTH) - Final, Complete 11/23/17 Gram Stain - Final, Complete 11/23/17 Gram Stain Result 1 (PARTH) - Final, Complete 11/23/17 Gram Stain Result 2 (PARTH) - Final, Complete Medications Current Medications Levofloxacin/ Dextrose 150 ml @ 100 mls/hr Q24H IV Last administered on at 20:36; Start 11/22/17 at 20:00; Stop 11/23/17 at 00:00; Status DC Piperacillin Sod/ Tazobactam Sod 4.5 gm/Sodium Chloride 100 ml @ 200 mls/hr Q6HRS IV Last administered on 11/22/17at 23:16; Start 11/23/17 at 00:00; Stop 11/23/17 at 00:29; Status DC Acetaminophen (Tylenol) 1,000 mg 1X ONCE PO Last administered on 11/22/17at 21 :48; Start 11/22/17 at 21:30; Stop 11/22/17 at 21:31; Status DC Sodium Chloride 500 ml @ 500 mls/hr 1X ONCE IV Last administered on at 21:49; Start 11/22/17 at 21:30; Stop 11/22/17 at 22:29; Status DC Ondansetron HCl (Zofran) 4 mg PRN Q8HRS PRN IV NAUSEA/VOMITING 1ST CHOICE; Start 11/22/17 at 21:30; Stop 11/23/17 at 21:29; Status DC Fentanyl Citrate (Fentanyl 2ml Vial) 50 mcg PRN Q2HR PRN IV SEVERE PAIN Last administered on 11/23/17at 05:05; Start 11/22/17 at 21:30; Stop 11/23/17 at 21 :29; Status DC Acetaminophen (Tylenol) 650 mg PRN Q4HRS PRN PO FEVER Last administered on 01/29at 09:57; Start 11/22/17 at 21:30; Stop 11/23/17 at 21:29; Status DC Piperacillin Sod/ Tazobactam Sod 2.25 gm/Sodium Chloride 50 ml @ 100 mls/hr Q8HRS IV Last administered on 11/23/17at 04:58; Start 11/23/17 at 06:00; Stop 11/23/17 at 11:56; Status DC Levofloxacin/ Dextrose 100 ml @ 100 mls/hr Q48H IV Last administered on at 00:00; Start 11/24/17 at 21:00; Stop 11/26/17 at 11:36; Status DC Potassium Chloride (Klor-Con) 40 meq 1X ONCE PO Last administered on at 09:04; Start 11/23/17 at 09:00; Stop 11/23/17 at 09:03; Status DC Acetaminophen (Tylenol Supp) 650 mg PRN Q6HRS PRN ND HEADACHE / TEMP; Start at 10:45 Cinacalcet (Sensipar) 30 mg HS PO Last administered on 11/26/17at 20:55; Start 11/23/17 at 21:00 Diphenoxylate HCl/ Atropine (Lomotil) 1 tab PRN Q8HRS PRN PO DIARRHEA Last administered on 11/25/17at 07:43; Start 11/23/17 at 10:45 Vitamin B Complex/ Vitamin C (Yaneth-Nabeel) 1 tab DAILY PO Last administered on at 10:24; Start 11/23/17 at 11:00 Acetaminophen/ Hydrocodone Bitart (Lortab 7.5/325) 1 tab PRN Q8HRS PRN PO PAIN MODERATE Last administered on 11/28/17at 10:25; Start 11/23/17 at 10:45 Artificial Tears (Artificial Tears) 1 drop PRN Q15MIN PRN OU DRY EYE; Start at 10:45 Triamcinolone Acetonide (Kenalog) 1 hanh PRN Q8HRS PRN TP ITCHING; Start at 10:45 Midodrine (Proamatine) 5 mg [id number] PO Last administered on 11/28/17at 05:26; Start 11/23/17 at 13:00 Multivitamins (Thera M Plus) 1 tab DAILY PO Last administered on 11/28/17at 10: 24; Start 11/23/17 at 12:00 Sulfasalazine (Azulfidine) 500 mg BID PO Last administered on 11/28/17at 10:23 ; Start 11/23/17 at 21:00 Daptomycin 310 mg/ Sodium Chloride 50 ml @ 100 mls/hr QODAY IV Last administered on 11/27/17at 11:01; Start 11/23/17 at 14:00 Ceftaroline Fosamil 200 mg/ Sodium Chloride 250 ml @ 250 mls/hr Q12HR IV Last administered on 11/28/17at 10:27; Start 11/23/17 at 13:00 Sodium Chloride 1,000 ml @ 1,000 mls/hr Q1H PRN IV hypotension; Start at 12:45; Stop 11/23/17 at 18:44; Status DC Sodium Chloride (Normal Saline Flush) 10 ml 1X PRN PRN IV AP catheter pack; Start 11/23/17 at 12:45; Stop 11/24/17 at 12:44; Status DC Sodium Chloride (Normal Saline Flush) 10 ml 1X PRN PRN IV HIDE CURER catheter pack; Start 11/23/17 at 12:45; Stop 11/24/17 at 12:44; Status DC Sodium Chloride 1,000 ml @ 400 mls/hr Q2H30M PRN IV PATENCY; Start 11/23/17 at 12:45; Stop 11/24/17 at 00:44; Status DC Info (PHARMACY MONITORING -- do not chart) 1 each PRN DAILY PRN MC SEE COMMENTS ; Start 11/23/17 at 12:45; Status UNV Info (PHARMACY MONITORING -- do not chart) 1 each PRN DAILY PRN MC SEE COMMENTS ; Start 11/23/17 at 12:45 Fentanyl Citrate (Fentanyl 2ml Vial) 50 mcg PRN Q2HR PRN IV SEVERE PAIN Last administered on 11/26/17at 06:09; Start 11/24/17 at 00:30 Sodium Chloride 1,000 ml @ 1,000 mls/hr Q1H PRN IV hypotension; Start at 11:31; Stop 11/26/17 at 17:30; Status DC Sodium Chloride 1,000 ml @ 400 mls/hr Q2H30M PRN IV PATENCY; Start 11/26/17 at 11:31; Stop 11/26/17 at 23:30; Status DC Info (PHARMACY MONITORING -- do not chart) 1 each PRN DAILY PRN MC SEE COMMENTS ; Start 11/26/17 at 11:45; Status UNV Sodium Chloride (Normal Saline Flush) 10 ml QSHIFT PRN IV AFTER MEDS AND BLOOD DRAWS; Start 11/26/17 at 12:45 Lidocaine HCl (Xylocaine 2% Topical 5gm Tube) 1 hanh 1X ONCE TP ; Start at 12:45; Stop 11/26/17 at 12:46; Status DC Lidocaine HCl (Viscous Lidocaine) 15 ml 1X ONCE MM ; Start 11/26/17 at 12:45; Stop 11/26/17 at 12:46; Status DC Benzocaine (Hurricaine One) 2 spray 1X ONCE MM ; Start 11/26/17 at 12:45; Stop 11/26/17 at 12:46; Status DC Midazolam HCl (Versed) 2 mg STK-MED ONCE .ROUTE ; Start 11/26/17 at 14:38; Stop 11/26/17 at 14:39; Status DC Fentanyl Citrate (Fentanyl 2ml Vial) 100 mcg STK-MED ONCE .ROUTE ; Start at 14:38; Stop 11/26/17 at 14:39; Status DC Lidocaine/ Epinephrine (LIDOCAINE 1%-EPI 1:100,000 Multi-Dose) 20 ml STK-MED ONCE .ROUTE ; Start 11/26/17 at 14:38; Stop 11/26/17 at 14:39; Status DC Heparin Sodium (Porcine) (Hep Lock Adult) 500 unit STK-MED ONCE IV ; Start at 14:45; Stop 11/26/17 at 14:46; Status DC Midazolam HCl (Versed) 2 mg 1X ONCE IV Last administered on 11/26/17at 16:01; Start 11/26/17 at 15:00; Stop 11/26/17 at 15:01; Status DC Fentanyl Citrate (Fentanyl 2ml Vial) 100 mcg 1X ONCE IV ; Start 11/26/17 at 15 :00; Stop 11/26/17 at 15:01; Status DC Lidocaine/ Epinephrine (LIDOCAINE 1%-EPI 1:100,000 Multi-Dose) 20 ml 1X ONCE IJ ; Start 11/26/17 at 15:00; Stop 11/26/17 at 15:01; Status DC Heparin Sodium (Porcine) (Hep Lock Adult) 220 unit 1X ONCE IV Last administered on 11/26/17at 15:00; Start 11/26/17 at 15:00; Stop 11/26/17 at 15 :01; Status DC Ondansetron HCl (Zofran) 4 mg PRN Q6HRS PRN IV NAUSEA/VOMITING; Start at 07:00; Stop 11/28/17 at 06:59; Status DC Fentanyl Citrate (Fentanyl 2ml Vial) 25 mcg PRN Q5MIN PRN IV MILD PAIN; Start 11/27/17 at 07:00; Stop 11/28/17 at 06:59; Status DC Fentanyl Citrate (Fentanyl 2ml Vial) 50 mcg PRN Q5MIN PRN IV MODERATE TO SEVERE PAIN; Start 11/27/17 at 07:00; Stop 11/28/17 at 06:59; Status DC Morphine Sulfate (Morphine Sulfate) 1 mg PRN Q10MIN PRN IV SEVERE PAIN; Start 11/27/17 at 07:00; Stop 11/28/17 at 06:59; Status DC Ringer's Solution 1,000 ml @ 30 mls/hr Q24H IV ; Start 11/27/17 at 07:00; Stop 11/27/17 at 18:59; Status UNV Lidocaine HCl (Xylocaine-Mpf 1% 2ml Vial) 2 ml PRN 1X PRN ID PRIOR TO IV START ; Start 11/27/17 at 07:00; Stop 11/28/17 at 06:59; Status DC Hydromorphone HCl (Dilaudid) 0.5 mg PRN Q10MIN PRN IV SEV PAIN, Second choice Last administered on 11/27/17at 08:24; Start 11/27/17 at 07:00; Stop 11/28/17 at 06:59; Status DC Prochlorperazine Edisylate (Compazine) 5 mg PACU PRN PRN IV NAUSEA 2nd CHOICE, MRX1; Start 11/27/17 at 07:00; Stop 11/28/17 at 06:59; Status DC Heparin Sodium (Porcine) (Hep Lock Adult) 110 unit 1X ONCE IV Last administered on 11/26/17at 16:00; Start 11/26/17 at 16:00; Stop 11/26/17 at 16 :20; Status DC Heparin Sodium (Porcine) (Hep Lock Adult) 150 unit PRN Q12HR PRN IV SEE COMMENTS Last administered on 11/27/17at 01:33; Start 11/26/17 at 16:15 Sodium Chloride 1,000 ml @ 1,000 mls/hr 1X ONCE IV Last administered on 11/27at 10:28; Start 11/27/17 at 09:45; Stop 11/27/17 at 10:44; Status DC Hydrocortisone Sodium Succinate (Solu-CORTEF) 100 mg 1X ONCE IV Last administered on 11/27/17at 11:07; Start 11/27/17 at 09:45; Stop 11/27/17 at 09 :46; Status DC Benzocaine (Hurricaine One) 1 spray STK-MED ONCE .ROUTE ; Start 11/27/17 at 14: 58; Stop 11/27/17 at 14:59; Status DC Lidocaine HCl (Xylocaine 2% Topical 30gm Tube) 30 hanh STK-MED ONCE TP ; Start 11/27/17 at 14:58; Stop 11/27/17 at 14:59; Status DC Lidocaine HCl (Viscous Lidocaine) 15 ml STK-MED ONCE .ROUTE ; Start 11/27/17 at 14:58; Stop 11/27/17 at 14:59; Status DC Propofol 20 ml @ As Directed STK-MED ONCE IV ; Start 11/27/17 at 16:26; Stop 11/27/17 at 16:27; Status DC Lidocaine HCl (Viscous Lidocaine) 15 ml 1X ONCE SWSW ; Start 11/27/17 at 16:45 ; Stop 11/27/17 at 16:56; Status DC Benzocaine (Hurricaine One) 2 spray 1X ONCE MM ; Start 11/27/17 at 16:45; Stop 11/27/17 at 16:56; Status DC Lidocaine HCl (Xylocaine 2% Topical 30gm Tube) 1 hanh 1X ONCE TP ; Start at 16:45; Stop 11/27/17 at 16:56; Status DC Active Scripts Active Artificial Tears (Polyvinyl Alcohol) 15 Ml Drops 1 Drop OU PRN Q15MIN PRN 30 Days Acetaminophen Supp (Acetaminophen) 650 Mg Supp.rect 650 Mg ND PRN Q6HRS PRN 30 Days Hydrocodone-Apap 7.5-325 (Hydrocodone Bit/Acetaminophen) 1 Each Tablet 1 Tab PO PRN Q8HRS PRN 7 Days Reported Multivitamins (Multivitamin) 1 Each Tablet 1 Tab PO DAILY Sensipar (Cinacalcet Hcl) 30 Mg Tablet 1 Tab PO HS Azulfidine (Sulfasalazine) 500 Mg Tablet 500 Mg PO BID Lomotil Tablet (Diphenoxylate Hcl/Atropine) 1 Each Tablet 1 Tab PO PRN Q8HRS Nephro-Nabeel Tablet (Folic Acid/Vitamin B Comp W-C) 0.8 Mg Tablet 1 Tab PO DAILY Triamcinolone Acetonide 0.1% Cream (Triamcinolone Acetonide) 15 Gm Cream..g. 1 Hanh TP PRN Q8HRS apply to bilat legs topically as needed for skin care Midodrine Hcl 5 Mg Tablet 5 Mg PO TID notify PCP if BP >180/110, P <60 Vitals/I & O Vital Sign - Last 24 Hours 11/27/17 11/27/17 11/27/17 11/27/17 13:55 15:39 16:18 16:33 Temp 98.3 98.3 98.3 98.3 Pulse 76 81 76 Resp 16 16 16 B/P (MAP) 83/54 (64) 84/45 97/51 88/50 Pulse Ox 100 100 100 O2 Delivery Nasal Cannula Nasal Cannula O2 Flow Rate 2 2 11/27/17 11/27/17 11/27/17 11/27/17 16:33 16:48 18:23 19:00 Temp 97.2 97.6 97.2 97.6 Pulse 76 76 68 Resp 16 17 B/P (MAP) 89/50 89/50 80/42 (55) Pulse Ox 100 99 O2 Delivery Nasal Cannula Room Air O2 Flow Rate 2 11/27/17 11/27/17 11/27/17 11/28/17 20:00 23:00 23:34 00:32 Temp 98.2 98.2 Pulse 68 Resp 17 B/P (MAP) 82/50 (61) Pulse Ox 99 100 O2 Delivery Nasal Cannula Room Air Nasal Cannula Nasal Cannula O2 Flow Rate 2.0 2.0 2.0 11/28/17 11/28/17 11/28/17 11/28/17 03:00 05:26 07:00 10:25 Temp 97.9 97.9 97.9 97.9 Pulse 60 68 66 Resp 18 B/P (MAP) 84/54 (64) 82/50 90/50 (63) Pulse Ox 98 94 O2 Delivery Room Air Nasal Cannula Nasal Cannula O2 Flow Rate 2.0 Intake and Output 11/27/17 11/27/17 11/28/17 15:01 23:01 07:01 Intake Total 600 ml Output Total 600 ml 450 ml Balance 0 ml -450 ml CASTLE,NIAL K III DO Nov 28, 2017 11:26
[2017-11-28] MEDS ORDERED: IV NORMAL SALINE 1000ML BAG 1,000 ML IV PRN ×2 (12:24)
[2017-11-28] MEDS ORDERED: diphenhydrAMINE 50 MG/ML VIAL IV PRN ×2 (12:30)
[2017-11-28] MEDS ORDERED: DIALYSIS PATIENT. MC PRN (12:30)
[2017-11-28] MEDS ORDERED: ACETAMINOPHEN 500 MG TABLET PO PRN (12:30)
[2017-11-28] MEDS ORDERED: ALBUMIN HUMAN 25% 200 ML IV PRN (12:30)
--- NOTE | 2017-11-28 14:58 | PDOC ---
SUBJECTIVE ROS Pt seen on HD , tolerating well, No concerns voiced by BRIAN OBJECTIVE Vital Signs Vital Signs Date Time Temp Pulse Resp B/P (MAP) Pulse Ox O2 Delivery O2 Flow Rate FiO2 11/28/17 13:37 69 78/41 11/28/17 11:00 97.6 16 95 Nasal Cannula 2.0 97.6 I & 0 Intake and Output 11/28/17 07:00 Intake Total 600 ml Output Total 1050 ml Balance -450 ml Intake Oral 450 ml IV Total 150 ml Stool Total 1050 ml # Bowel Movements 1 PHYSICAL EXAM Physical Exam GENERAL: NAD - in HD HEENT: Unremarkable LUNGS: Clear HEART: S1, S2. ABDOMEN: Soft. BS +. Ostomy, nontender EXTREMITIES: Left BKA, stump. 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 DIAGNOSIS/ASSESSMENT Assessment & Plan ESRD- On HD MWF Seen on HD, tolerating well Continue as Ordered Has TDC - was replaced recently after previous TDC was removed Sepsis MRSA - while on Vanc for MRSA bacteremia from previous admission -Repeat BC from 11/22 & NGTD s/p TDC removal in Oct 2017 Resp failure w/ pleural effusion - s/p thoracentesis COMMENT/RELEVANT DATA Meds Current Medications Medications (Trade) Dose Ordered Sig/Yovanny Start Time Stop Time Status Last Admin Dose Admin Acetaminophen (Tylenol Supp) 650 mg PRN Q6HRS PRN 11/23/17 10:45 Acetaminophen (Tylenol) 500 mg 1X PRN PRN 11/28/17 12:30 11/28/17 19:00 Acetaminophen/ Hydrocodone Bitart (Lortab 7.5/325) 1 tab PRN Q8HRS PRN 11/23/17 10:45 11/28/17 10:25 1 TAB Albumin Human 200 ml @ 200 mls/hr 1X PRN PRN 11/28/17 12:30 11/28/17 18:29 Artificial Tears (Artificial Tears) 1 drop PRN Q15MIN PRN 11/23/17 10:45 Benzocaine (Hurricaine One) 2 spray 1X ONCE 11/27/17 16:45 11/27/17 16:56 DC Ceftaroline Fosamil 200 mg/ Sodium Chloride 250 ml @ 250 mls/hr Q12HR 11/23/17 13:00 11/28/17 10:27 250 MLS/HR Cinacalcet (Sensipar) 30 mg HS 11/23/17 21:00 11/26/17 20:55 30 MG Daptomycin 310 mg/ Sodium Chloride 50 ml @ 100 mls/hr QODAY 11/23/17 14:00 11/27/17 11:01 100 MLS/HR Diphenhydramine HCl (Benadryl) 25 mg 1X PRN PRN 11/28/17 12:30 11/28/17 19:00 Diphenoxylate HCl/ Atropine (Lomotil) 1 tab PRN Q8HRS PRN 11/23/17 10:45 11/25/17 07:43 1 TAB Fentanyl Citrate (Fentanyl 2ml Vial) 50 mcg PRN Q5MIN PRN 11/27/17 07:00 11/28/17 06:59 DC Heparin Sodium (Porcine) (Hep Lock Adult) 150 unit PRN Q12HR PRN 11/26/17 16:15 11/27/17 01:33 150 UNIT Hydrocortisone Sodium Succinate (Solu-CORTEF) 100 mg 1X ONCE 11/27/17 09:45 11/27/17 09:46 DC 11/27/17 11:07 100 MG Hydromorphone HCl (Dilaudid) 0.5 mg PRN Q10MIN PRN 11/27/17 07:00 11/28/17 06:59 DC 11/27/17 08:24 0.5 MG Info (PHARMACY MONITORING -- do not chart) 1 each PRN DAILY PRN 11/28/17 12:30 UNV Levofloxacin/ Dextrose 100 ml @ 100 mls/hr Q48H 11/24/17 21:00 11/26/17 11:36 DC 11/25/17 00:00 100 MLS/HR Lidocaine HCl (Viscous Lidocaine) 15 ml 1X ONCE 11/27/17 16:45 11/27/17 16:56 DC Lidocaine HCl (Xylocaine 2% Topical 30gm Tube) 1 tj 1X ONCE 11/27/17 16:45 11/27/17 16:56 DC Lidocaine HCl (Xylocaine 2% Topical 5gm Tube) 1 tj 1X ONCE 11/26/17 12:45 11/26/17 12:46 DC Lidocaine HCl (Xylocaine-Mpf 1% 2ml Vial) 2 ml PRN 1X PRN 11/27/17 07:00 11/28/17 06:59 DC Lidocaine/ Epinephrine (LIDOCAINE 1%-EPI 1:100,000 Multi-Dose) 20 ml 1X ONCE 11/26/17 15:00 11/26/17 15:01 DC Midazolam HCl (Versed) 2 mg 1X ONCE 11/26/17 15:00 11/26/17 15:01 DC 11/26/17 16:01 1 MG Midodrine (Proamatine) 5 mg [id number] 11/23/17 13:00 11/28/17 13:37 5 MG Morphine Sulfate (Morphine Sulfate) 1 mg PRN Q10MIN PRN 11/27/17 07:00 11/28/17 06:59 DC Multivitamins (Thera M Plus) 1 tab DAILY 11/23/17 12:00 11/28/17 10:24 1 TAB Ondansetron HCl (Zofran) 4 mg PRN Q6HRS PRN 11/27/17 07:00 11/28/17 06:59 DC Piperacillin Sod/ Tazobactam Sod 2.25 gm/Sodium Chloride 50 ml @ 100 mls/hr Q8HRS 11/23/17 06:00 11/23/17 11:56 DC 11/23/17 04:58 100 MLS/HR Piperacillin Sod/ Tazobactam Sod 4.5 gm/Sodium Chloride 100 ml @ 200 mls/hr Q6HRS 11/23/17 00:00 11/23/17 00:29 DC 11/22/17 23:16 200 MLS/HR Potassium Chloride (Klor-Con) 40 meq 1X ONCE 11/23/17 09:00 11/23/17 09:03 DC 11/23/17 09:04 40 MEQ Prochlorperazine Edisylate (Compazine) 5 mg PACU PRN PRN 11/27/17 07:00 11/28/17 06:59 DC Propofol 20 ml @ As Directed STK-MED ONCE 11/27/17 16:26 11/27/17 16:27 DC Ringer's Solution 1,000 ml @ 30 mls/hr Q24H 11/27/17 07:00 11/27/17 18:59 UNV Sodium Chloride 1,000 ml @ 400 mls/hr Q2H30M PRN 11/28/17 12:24 11/28/17 19:00 Sodium Chloride (Normal Saline Flush) 10 ml QSHIFT PRN 11/26/17 12:45 Sulfasalazine (Azulfidine) 500 mg BID 11/23/17 21:00 11/28/17 10:23 500 MG Triamcinolone Acetonide (Kenalog) 1 tj PRN Q8HRS PRN 11/23/17 10:45 Vitamin B Complex/ Vitamin C (Yaneth-Nabeel) 1 tab DAILY 11/23/17 11:00 11/28/17 10:24 1 TAB Lab Laboratory Tests Test 11/28/17 04:10 White Blood Count 14.2 x10^3/uL (4.0-11.0) Red Blood Count 2.79 x10^6/uL (3.50-5.40) Hemoglobin 7.6 g/dL (12.0-15.5) Hematocrit 23.1 % (36.0-47.0) Mean Corpuscular Volume 83 fL (79-100) Mean Corpuscular Hemoglobin 27 pg (25-35) Mean Corpuscular Hemoglobin Concent 33 g/dL (31-37) Red Cell Distribution Width 19.3 % (11.5-14.5) Platelet Count 342 x10^3/uL (140-400) Neutrophils (%) (Auto) 80 % (31-73) Lymphocytes (%) (Auto) 10 % (24-48) Monocytes (%) (Auto) 9 % (0-9) Eosinophils (%) (Auto) 1 % (0-3) Basophils (%) (Auto) 0 % (0-3) Neutrophils # (Auto) 11.4 x10^3uL (1.8-7.7) Lymphocytes # (Auto) 1.5 x10^3/uL (1.0-4.8) Monocytes # (Auto) 1.2 x10^3/uL (0.0-1.1) Eosinophils # (Auto) 0.1 x10^3/uL (0.0-0.7) Basophils # (Auto) 0.1 x10^3/uL (0.0-0.2) Sodium Level 147 mmol/L (136-145) Potassium Level 3.2 mmol/L (3.5-5.1) Chloride Level 110 mmol/L (98-107) Carbon Dioxide Level 24 mmol/L (21-32) Anion Gap 13 (6-14) Blood Urea Nitrogen 21 mg/dL (7-20) Creatinine 4.4 mg/dL (0.6-1.0) Estimated GFR (Cockcroft-Gault) 11.8 Glucose Level 103 mg/dL (70-99) Calcium Level 8.8 mg/dL (8.5-10.1) Results All relevant outside records, renal labs, imaging studies, telemetry/EKG's were reviewed. YVONNE ZAVALA MD Nov 28, 2017 14:58
[2017-11-28 15:00] VITALS: BP 113/49
[2017-11-28 19:00] VITALS: BP 88/47
[2017-11-28] MEDS: CINACALCET HCL 30 MG TABLET PO SCH (22:05)
[2017-11-28] MEDS: DIPHENOXYLATE/ATROPINE TABLET. PO PRN (22:34)
[2017-11-28 23:00] VITALS: BP 73/35
[2017-11-29 03:00] VITALS: BP 86/46
[2017-11-29] MEDS: HYDROcodone/APAP 7.5/325MG 1 TAB TABLET PO PRN ×3 (03:06→21:48)
[2017-11-29] MEDS: MIDODRINE 5 MG TABLET PO SCH ×3 (05:34→17:31)
[2017-11-29 07:00] VITALS: BP 89/45
--- NOTE | 2017-11-29 07:22 | PDOC ---
Infectious Disease Note Subjective Subjective Comfortable Denies back pain Feeling better these last couple of days. No dizziness. Slept better Denies N/V/cramps No F/C/S/aches/SOB Hungry ROS ROS o/w neg Vital Sign Vital Signs Vital Signs Date Time Temp Pulse Resp B/P (MAP) Pulse Ox O2 Delivery O2 Flow Rate FiO2 11/29/17 05:34 65 86/46 11/29/17 04:06 Nasal Cannula 4.0 11/29/17 03:00 97.9 18 97 97.9 Physical Exam PHYSICAL EXAM GENERAL: Propped up in bed, alert, NAD. looks well HEENT: Oral cavity dry. Dentures. no conjunc petechia LUNGS: Clear HEART: S1, S2. ABDOMEN: Soft. BS +. Ostomy, nontender EXTREMITIES: Left BKA, stump. Right lateral leg wound. 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 Tunneled HDC (11/16) w/o signs of complications. Left chest PICC - clean Labs Micro Microbiology 11/23/17 Blood Culture - Preliminary, Resulted NO GROWTH AFTER 2 DAYS 11/23/17 Anaerobic/Aerobic Culture, Resulted Pending 11/23/17 Anaerobic Culture Result 1 (PARTH), Resulted Pending 11/23/17 Aerobic Culture - Preliminary, Resulted 11/23/17 Aerobic Culture Result 1 (PARTH) - Preliminary, Resulted 11/23/17 Gram Stain - Final, Resulted 11/23/17 Gram Stain Result 1 (PARTH) - Final, Resulted 11/23/17 Gram Stain Result 2 (PARTH) - Final, Resulted Objective Assessment Sepsis MRSA from 11/21 POA ([facility]) while on Vanc for MRSA bacteremia from previous admission -Repeat BC from 11/22 & NGTD. PHILIP 11/27 neg - d/w Dr. Santana 11/27 Hypotension - resolved Right basilar atelectasis versus infiltrate H/O High grade MRSA bacteremia previous admission from 10/31. source infected HD cath,s/p removal. Discharged on vanc -Repeat BC on 11/02, 11/04 & 11/08 positive. BC 11/13 negative -ECHO without evidence of veg H/O infected right HDC cath s/p removal on 11/01 + MRSA. -s/p interval placement of a temp LIJ/HDC on 11/01; removed. -s/p Tunneled HDC placement on 11/16. Leukocytosis - better Resp failure w/ pleural effusion s/p thoracentesis 11/07 with 1/1 liter removed pH 7.51. 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 C. diff neg 11/22 Plan Plan of Care Cont Daptomycin and ceftaroline - has clearly improved with change in abx Need sensitivities/confirmation of outpatient MRSA that was reported from . D/w unit secy Repeat BC NGTD May need HD cath removed DNR/DNI D/w RN RAYA SIERRA MD Nov 29, 2017 07:22
[2017-11-29 07:52] LABS: BASO # 0.1 x10^3/uL (0.0-0.2); BASO % 1 % (0-3); EOS # 0.2 x10^3/uL (0.0-0.7); EOS % 2 % (0-3); HEMATOCRIT 24.2 % (36.0-47.0); HEMOGLOBIN 7.7 g/dL (12.0-15.5); LYMPH % 14 % (24-48); MEAN CORPUSCULAR HEMOGLOBIN 26 pg (25-35); MEAN CORPUSCULAR HGB CONC 32 g/dL (31-37); MEAN CORPUSCULAR VOLUME 82 fL (79-100); MONO # 1.5 x10^3/uL (0.0-1.1); MONO % 11 % (0-9); NEUT # 10.2 x10^3uL (1.8-7.7); NEUT % 72 % (31-73); PLATELET COUNT 368 x10^3/uL (140-400); RED BLOOD COUNT 2.94 x10^6/uL (3.50-5.40); RED CELL DISTRIBUTION WIDTH 19.6 % (11.5-14.5); WHITE BLOOD COUNT 14.1 x10^3/uL (4.0-11.0)
[2017-11-29 07:58] LABS: CALCIUM 9.1 mg/dL (8.5-10.1); CREATININE 2.3 mg/dL (0.6-1.0); POTASSIUM 3.5 mmol/L (3.5-5.1)
[2017-11-29] MEDS: NORMAL SALINE IV SCH ×3 (08:31→21:48)
[2017-11-29] MEDS: DAPTOMYCIN IV SCH (08:31)
[2017-11-29] MEDS: sulfaSALAzine 500 MG TABLET PO SCH ×2 (08:39→21:48)
[2017-11-29] MEDS: MULTIVITAMIN with MINERAL TABLET. PO SCH (08:40)
[2017-11-29] MEDS: FOLIC/VIT B COMP W-C (RENAL) TABLET. PO SCH (08:40)
[2017-11-29] MEDS: CEFTAROLINE FOSAMIL IV SCH ×2 (09:55→21:48)
[2017-11-29 11:00] VITALS: BP 83/46
[2017-11-29] MEDS: HEPARIN PF 500 UNIT/5 ML DISP.SYRIN. IV PRN ×3 (11:03→23:32)
--- NOTE | 2017-11-29 11:59 | PDOC2 ---
CONSULT Date of Consult Date of Consult DATE: 11/29/17 TIME: 11:30 Reason for Consult Reason for Consult: PAD Referring Physician Referring Physician: Anisha Identification/Chief Complaint Chief Complaint Right foot pain Source Source: Patient History of Present Illness Reason for Visit: Pt was admitted on 11/22/17 for PNA and sepsis. She's been treated for MRSA, end -stage renal disease, pneumonia, sepsis. Throughout her hospitalization she noted right toe pain at which point an arterial duplex study was ordered which showed an occluded right leg AV graft proximal thigh, patent stent of the right SFA, right popliteal and posterior tibial stenosis. We are asked to see the patient regarding this. The patient has a lateral hemodialysis access sites on both legs, reportedly both are occluded the right confirmed occluded by ultrasound. Her right toe pain she reports started 3 weeks ago and has been constant since, its very tender to touch. It does not radiate up the foot and she reports it is severe pain. She also has a nonhealing wound on the posterior side of her lower leg just below the calf, she reports it has been there for 3 months treated by wound care. She does not currently smoke, however She reports a 30 year smoking history of about a pack a day. She is currently on antibiotics per infectious disease. She denies any arterial intervention to her right leg. Her arterial duplex study shows biphasic waveforms proximally and monophasic waveforms distally to the right leg. She denies medical history of diabetes or heart problems. She has a history of requiring HD access removals due to infection, her last removal was 11/01 I believe removed from her right upper arm. She is currently getting dialysis through [facility], reports not using either proximal thigh HD access in "a long time". Past Medical History Cardiovascular: CAD, HTN, Hyperlipidemia, Other Pulmonary: No pertinent hx CENTRAL NERVOUS SYSTEM: Other GI: Other Heme/Onc: Anemia NOS Hepatobiliary: No pertinent hx Psych: Anxiety Musculoskeletal: Other Renal/: Chronic renal failure Endocrine: Hyperparathyroidism Past Surgical History Past Surgical History: Colon Resection, Other Family History Family History: Family History Unknown, Other Social History ALCOHOL: none Drugs: None Lives: with Family Current Problem List Problem List Problems Medical Problems: (1) End stage renal disease Status: Acute (2) Fever Status: Acute (3) Leukocytosis Status: Acute Leukocytosis Resp failure w/ pleural effusion s/p thoracentesis 11/07 Afib ESRD on HD Anemia chronic, sepsis, 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 C. diff neg 11/22 rt toes pain Current Medications Current Medications Current Medications Levofloxacin/ Dextrose 150 ml @ 100 mls/hr Q24H IV Last administered on at 20:36; Start 11/22/17 at 20:00; Stop 11/23/17 at 00:00; Status DC Piperacillin Sod/ Tazobactam Sod 4.5 gm/Sodium Chloride 100 ml @ 200 mls/hr Q6HRS IV Last administered on 11/22/17at 23:16; Start 11/23/17 at 00:00; Stop 11/23/17 at 00:29; Status DC Acetaminophen (Tylenol) 1,000 mg 1X ONCE PO Last administered on 11/22/17at 21 :48; Start 11/22/17 at 21:30; Stop 11/22/17 at 21:31; Status DC Sodium Chloride 500 ml @ 500 mls/hr 1X ONCE IV Last administered on at 21:49; Start 11/22/17 at 21:30; Stop 11/22/17 at 22:29; Status DC Ondansetron HCl (Zofran) 4 mg PRN Q8HRS PRN IV NAUSEA/VOMITING 1ST CHOICE; Start 11/22/17 at 21:30; Stop 11/23/17 at 21:29; Status DC Fentanyl Citrate (Fentanyl 2ml Vial) 50 mcg PRN Q2HR PRN IV SEVERE PAIN Last administered on 11/23/17at 05:05; Start 11/22/17 at 21:30; Stop 11/23/17 at 21 :29; Status DC Acetaminophen (Tylenol) 650 mg PRN Q4HRS PRN PO FEVER Last administered on 01/29at 09:57; Start 11/22/17 at 21:30; Stop 11/23/17 at 21:29; Status DC Piperacillin Sod/ Tazobactam Sod 2.25 gm/Sodium Chloride 50 ml @ 100 mls/hr Q8HRS IV Last administered on 11/23/17at 04:58; Start 11/23/17 at 06:00; Stop 11/23/17 at 11:56; Status DC Levofloxacin/ Dextrose 100 ml @ 100 mls/hr Q48H IV Last administered on at 00:00; Start 11/24/17 at 21:00; Stop 11/26/17 at 11:36; Status DC Potassium Chloride (Klor-Con) 40 meq 1X ONCE PO Last administered on at 09:04; Start 11/23/17 at 09:00; Stop 11/23/17 at 09:03; Status DC Acetaminophen (Tylenol Supp) 650 mg PRN Q6HRS PRN SD HEADACHE / TEMP; Start at 10:45 Cinacalcet (Sensipar) 30 mg HS PO Last administered on 11/28/17at 22:05; Start 11/23/17 at 21:00 Diphenoxylate HCl/ Atropine (Lomotil) 1 tab PRN Q8HRS PRN PO DIARRHEA Last administered on 11/28/17at 22:34; Start 11/23/17 at 10:45 Vitamin B Complex/ Vitamin C (Yaneth-Nabeel) 1 tab DAILY PO Last administered on at 08:40; Start 11/23/17 at 11:00 Acetaminophen/ Hydrocodone Bitart (Lortab 7.5/325) 1 tab PRN Q8HRS PRN PO PAIN MODERATE Last administered on 11/29/17at 03:06; Start 11/23/17 at 10:45 Artificial Tears (Artificial Tears) 1 drop PRN Q15MIN PRN OU DRY EYE; Start at 10:45 Triamcinolone Acetonide (Kenalog) 1 hanh PRN Q8HRS PRN TP ITCHING; Start at 10:45 Midodrine (Proamatine) 5 mg [id number] PO Last administered on 11/29/17at 05:34; Start 11/23/17 at 13:00 Multivitamins (Thera M Plus) 1 tab DAILY PO Last administered on 11/29/17 08: 40; Start 11/23/17 at 12:00 Sulfasalazine (Azulfidine) 500 mg BID PO Last administered on 11/29/17at 08:39 ; Start 11/23/17 at 21:00 Daptomycin 310 mg/ Sodium Chloride 50 ml @ 100 mls/hr QODAY IV Last administered on 11/29/17at 08:31; Start 11/23/17 at 14:00 Ceftaroline Fosamil 200 mg/ Sodium Chloride 250 ml @ 250 mls/hr Q12HR IV Last administered on 11/29/17at 09:55; Start 11/23/17 at 13:00 Sodium Chloride 1,000 ml @ 1,000 mls/hr Q1H PRN IV hypotension; Start at 12:45; Stop 11/23/17 at 18:44; Status DC Sodium Chloride (Normal Saline Flush) 10 ml 1X PRN PRN IV AP catheter pack; Start 11/23/17 at 12:45; Stop 11/24/17 at 12:44; Status DC Sodium Chloride (Normal Saline Flush) 10 ml 1X PRN PRN IV [employer] catheter pack; Start 11/23/17 at 12:45; Stop 11/24/17 at 12:44; Status DC Sodium Chloride 1,000 ml @ 400 mls/hr Q2H30M PRN IV PATENCY; Start 11/23/17 at 12:45; Stop 11/24/17 at 00:44; Status DC Info (PHARMACY MONITORING -- do not chart) 1 each PRN DAILY PRN MC SEE COMMENTS ; Start 11/23/17 at 12:45; Status UNV Info (PHARMACY MONITORING -- do not chart) 1 each PRN DAILY PRN MC SEE COMMENTS ; Start 11/23/17 at 12:45 Fentanyl Citrate (Fentanyl 2ml Vial) 50 mcg PRN Q2HR PRN IV SEVERE PAIN Last administered on 11/26/17at 06:09; Start 11/24/17 at 00:30 Sodium Chloride 1,000 ml @ 1,000 mls/hr Q1H PRN IV hypotension; Start at 11:31; Stop 11/26/17 at 17:30; Status DC Sodium Chloride 1,000 ml @ 400 mls/hr Q2H30M PRN IV PATENCY; Start 11/26/17 at 11:31; Stop 11/26/17 at 23:30; Status DC Info (PHARMACY MONITORING -- do not chart) 1 each PRN DAILY PRN MC SEE COMMENTS ; Start 11/26/17 at 11:45; Status UNV Sodium Chloride (Normal Saline Flush) 10 ml QSHIFT PRN IV AFTER MEDS AND BLOOD DRAWS; Start 11/26/17 at 12:45 Lidocaine HCl (Xylocaine 2% Topical 5gm Tube) 1 hanh 1X ONCE TP ; Start at 12:45; Stop 11/26/17 at 12:46; Status DC Lidocaine HCl (Viscous Lidocaine) 15 ml 1X ONCE MM ; Start 11/26/17 at 12:45; Stop 11/26/17 at 12:46; Status DC Benzocaine (Hurricaine One) 2 spray 1X ONCE MM ; Start 11/26/17 at 12:45; Stop 11/26/17 at 12:46; Status DC Midazolam HCl (Versed) 2 mg STK-MED ONCE .ROUTE ; Start 11/26/17 at 14:38; Stop 11/26/17 at 14:39; Status DC Fentanyl Citrate (Fentanyl 2ml Vial) 100 mcg STK-MED ONCE .ROUTE ; Start at 14:38; Stop 11/26/17 at 14:39; Status DC Lidocaine/ Epinephrine (LIDOCAINE 1%-EPI 1:100,000 Multi-Dose) 20 ml STK-MED ONCE .ROUTE ; Start 11/26/17 at 14:38; Stop 11/26/17 at 14:39; Status DC Heparin Sodium (Porcine) (Hep Lock Adult) 500 unit STK-MED ONCE IV ; Start at 14:45; Stop 11/26/17 at 14:46; Status DC Midazolam HCl (Versed) 2 mg 1X ONCE IV Last administered on 11/26/17at 16:01; Start 11/26/17 at 15:00; Stop 11/26/17 at 15:01; Status DC Fentanyl Citrate (Fentanyl 2ml Vial) 100 mcg 1X ONCE IV ; Start 11/26/17 at 15 :00; Stop 11/26/17 at 15:01; Status DC Lidocaine/ Epinephrine (LIDOCAINE 1%-EPI 1:100,000 Multi-Dose) 20 ml 1X ONCE IJ ; Start 11/26/17 at 15:00; Stop 11/26/17 at 15:01; Status DC Heparin Sodium (Porcine) (Hep Lock Adult) 220 unit 1X ONCE IV Last administered on 11/26/17at 15:00; Start 11/26/17 at 15:00; Stop 11/26/17 at 15 :01; Status DC Ondansetron HCl (Zofran) 4 mg PRN Q6HRS PRN IV NAUSEA/VOMITING; Start at 07:00; Stop 11/28/17 at 06:59; Status DC Fentanyl Citrate (Fentanyl 2ml Vial) 25 mcg PRN Q5MIN PRN IV MILD PAIN; Start 11/27/17 at 07:00; Stop 11/28/17 at 06:59; Status DC Fentanyl Citrate (Fentanyl 2ml Vial) 50 mcg PRN Q5MIN PRN IV MODERATE TO SEVERE PAIN; Start 11/27/17 at 07:00; Stop 11/28/17 at 06:59; Status DC Morphine Sulfate (Morphine Sulfate) 1 mg PRN Q10MIN PRN IV SEVERE PAIN; Start 11/27/17 at 07:00; Stop 11/28/17 at 06:59; Status DC Ringer's Solution 1,000 ml @ 30 mls/hr Q24H IV ; Start 11/27/17 at 07:00; Stop 11/27/17 at 18:59; Status UNV Lidocaine HCl (Xylocaine-Mpf 1% 2ml Vial) 2 ml PRN 1X PRN ID PRIOR TO IV START ; Start 11/27/17 at 07:00; Stop 11/28/17 at 06:59; Status DC Hydromorphone HCl (Dilaudid) 0.5 mg PRN Q10MIN PRN IV SEV PAIN, Second choice Last administered on 11/27/17at 08:24; Start 11/27/17 at 07:00; Stop 11/28/17 at 06:59; Status DC Prochlorperazine Edisylate (Compazine) 5 mg PACU PRN PRN IV NAUSEA 2nd CHOICE, MRX1; Start 11/27/17 at 07:00; Stop 11/28/17 at 06:59; Status DC Heparin Sodium (Porcine) (Hep Lock Adult) 110 unit 1X ONCE IV Last administered on 11/26/17at 16:00; Start 11/26/17 at 16:00; Stop 11/26/17 at 16 :20; Status DC Heparin Sodium (Porcine) (Hep Lock Adult) 150 unit PRN Q12HR PRN IV SEE COMMENTS Last administered on 11/29/17at 11:04; Start 11/26/17 at 16:15 Sodium Chloride 1,000 ml @ 1,000 mls/hr 1X ONCE IV Last administered on 11/27at 10:28; Start 11/27/17 at 09:45; Stop 11/27/17 at 10:44; Status DC Hydrocortisone Sodium Succinate (Solu-CORTEF) 100 mg 1X ONCE IV Last administered on 11/27/17at 11:07; Start 11/27/17 at 09:45; Stop 11/27/17 at 09 :46; Status DC Benzocaine (Hurricaine One) 1 spray STK-MED ONCE .ROUTE ; Start 11/27/17 at 14: 58; Stop 11/27/17 at 14:59; Status DC Lidocaine HCl (Xylocaine 2% Topical 30gm Tube) 30 hanh STK-MED ONCE TP ; Start 11/27/17 at 14:58; Stop 11/27/17 at 14:59; Status DC Lidocaine HCl (Viscous Lidocaine) 15 ml STK-MED ONCE .ROUTE ; Start 11/27/17 at 14:58; Stop 11/27/17 at 14:59; Status DC Propofol 20 ml @ As Directed STK-MED ONCE IV ; Start 11/27/17 at 16:26; Stop 11/27/17 at 16:27; Status DC Lidocaine HCl (Viscous Lidocaine) 15 ml 1X ONCE SWSW ; Start 11/27/17 at 16:45 ; Stop 11/27/17 at 16:56; Status DC Benzocaine (Hurricaine One) 2 spray 1X ONCE MM ; Start 11/27/17 at 16:45; Stop 11/27/17 at 16:56; Status DC Lidocaine HCl (Xylocaine 2% Topical 30gm Tube) 1 hanh 1X ONCE TP ; Start at 16:45; Stop 11/27/17 at 16:56; Status DC Sodium Chloride 1,000 ml @ 1,000 mls/hr Q1H PRN IV hypotension; Start at 12:24; Stop 11/28/17 at 18:23; Status DC Albumin Human 200 ml @ 200 mls/hr 1X PRN PRN IV Hypotension; Start 11/28/17 at 12:30; Stop 11/28/17 at 18:29; Status DC Acetaminophen (Tylenol) 500 mg 1X PRN PRN PO MILD PAIN / TEMP; Start 11/28/17 at 12:30; Stop 11/28/17 at 19:00; Status DC Diphenhydramine HCl (Benadryl) 25 mg 1X PRN PRN IV ITCHING; Start 11/28/17 at 12:30; Stop 11/28/17 at 19:00; Status DC Diphenhydramine HCl (Benadryl) 25 mg 1X PRN PRN IV ITCHING; Start 11/28/17 at 12:30; Stop 11/28/17 at 19:00; Status DC Sodium Chloride 1,000 ml @ 400 mls/hr Q2H30M PRN IV PATENCY; Start 11/28/17 at 12:24; Stop 11/28/17 at 19:00; Status DC Info (PHARMACY MONITORING -- do not chart) 1 each PRN DAILY PRN MC SEE COMMENTS ; Start 11/28/17 at 12:30; Status UNV Active Scripts Active Artificial Tears (Polyvinyl Alcohol) 15 Ml Drops 1 Drop OU PRN Q15MIN PRN 30 Days Acetaminophen Supp (Acetaminophen) 650 Mg Supp.rect 650 Mg SD PRN Q6HRS PRN 30 Days Hydrocodone-Apap 7.5-325 (Hydrocodone Bit/Acetaminophen) 1 Each Tablet 1 Tab PO PRN Q8HRS PRN 7 Days Reported Multivitamins (Multivitamin) 1 Each Tablet 1 Tab PO DAILY Sensipar (Cinacalcet Hcl) 30 Mg Tablet 1 Tab PO HS Azulfidine (Sulfasalazine) 500 Mg Tablet 500 Mg PO BID Lomotil Tablet (Diphenoxylate Hcl/Atropine) 1 Each Tablet 1 Tab PO PRN Q8HRS Nephro-Nabeel Tablet (Folic Acid/Vitamin B Comp W-C) 0.8 Mg Tablet 1 Tab PO DAILY Triamcinolone Acetonide 0.1% Cream (Triamcinolone Acetonide) 15 Gm Cream..g. 1 Hanh TP PRN Q8HRS apply to bilat legs topically as needed for skin care Midodrine Hcl 5 Mg Tablet 5 Mg PO TID notify PCP if BP >180/110, P <60 Allergies Allergies: Coded Allergies: codeine (Verified Allergy, Intermediate, HIVES, 11/26/17) Patient received morphine 11/29 and 10/30 and tolerated with no noted adverse effects I S O L A T I O N *CONTACT* (Verified Allergy, Unknown, 11/12/17) mrsa+ blood 11/01/17 ROS General: No: Malaise, Appetite PSYCHOLOGICAL ROS: No: Disorientation HEENT: YES: Sore Throat Hematological and Lymphatic: No: Bleeding Problems, Blood Clots Respiratory: No: Shortness of breath Cardiovascular: No Chest Pain, No Palpitations Gastrointestinal: No Nausea, No Vomiting, No Abdominal Pain, No Diarrhea Musculoskeletal: Yes Pain In: (right big toe) Neurological: No Confusion, No Dizziness, No Headaches Skin: Yes Mottling Physical Exam Physical Exam Vascular: Right popliteal and PT pulse faintly palpable, nonpalpable DP. Doppler signals to PT weak, unable to hear doppler signal to right DP. Strong radial pulses bilaterally. AV shunts present on bilateral groin/proximal thighs , no bruits, no palpable thrill. General: Alert, Oriented X3, No acute distress HEENT: Atraumatic Lungs: Normal air movement Abdomen: Soft, No tenderness Skin: Other (Mottling to right toe, right posterior calf with open ulcer, mild surrounding erythema. ) Neuro: Normal speech, Sensation intact Psych/Mental Status: Mental status NL, Mood NL MUSCULOSKELETAL: Other (Extreme tenderness to right big toe, valgus deformity to right second toe. ) Vitals VITALS Vital Signs Date Time Temp Pulse Resp B/P (MAP) Pulse Ox O2 Delivery O2 Flow Rate FiO2 11/29/17 07:00 98.1 61 18 89/45 (60) 95 Room Air 98.1 11/29/17 04:06 4.0 Labs Labs Laboratory Tests Test 11/28/17 04:10 11/29/17 07:30 White Blood Count 14.2 x10^3/uL (4.0-11.0) 14.1 x10^3/uL (4.0-11.0) Red Blood Count 2.79 x10^6/uL (3.50-5.40) 2.94 x10^6/uL (3.50-5.40) Hemoglobin 7.6 g/dL (12.0-15.5) 7.7 g/dL (12.0-15.5) Hematocrit 23.1 % (36.0-47.0) 24.2 % (36.0-47.0) Mean Corpuscular Volume 83 fL (79-100) 82 fL (79-100) Mean Corpuscular Hemoglobin 27 pg (25-35) 26 pg (25-35) Mean Corpuscular Hemoglobin Concent 33 g/dL (31-37) 32 g/dL (31-37) Red Cell Distribution Width 19.3 % (11.5-14.5) 19.6 % (11.5-14.5) Platelet Count 342 x10^3/uL (140-400) 368 x10^3/uL (140-400) Neutrophils (%) (Auto) 80 % (31-73) 72 % (31-73) Lymphocytes (%) (Auto) 10 % (24-48) 14 % (24-48) Monocytes (%) (Auto) 9 % (0-9) 11 % (0-9) Eosinophils (%) (Auto) 1 % (0-3) 2 % (0-3) Basophils (%) (Auto) 0 % (0-3) 1 % (0-3) Neutrophils # (Auto) 11.4 x10^3uL (1.8-7.7) 10.2 x10^3uL (1.8-7.7) Lymphocytes # (Auto) 1.5 x10^3/uL (1.0-4.8) 2.0 x10^3/uL (1.0-4.8) Monocytes # (Auto) 1.2 x10^3/uL (0.0-1.1) 1.5 x10^3/uL (0.0-1.1) Eosinophils # (Auto) 0.1 x10^3/uL (0.0-0.7) 0.2 x10^3/uL (0.0-0.7) Basophils # (Auto) 0.1 x10^3/uL (0.0-0.2) 0.1 x10^3/uL (0.0-0.2) Sodium Level 147 mmol/L (136-145) 143 mmol/L (136-145) Potassium Level 3.2 mmol/L (3.5-5.1) 3.5 mmol/L (3.5-5.1) Chloride Level 110 mmol/L (98-107) 104 mmol/L (98-107) Carbon Dioxide Level 24 mmol/L (21-32) 32 mmol/L (21-32) Anion Gap 13 (6-14) 7 (6-14) Blood Urea Nitrogen 21 mg/dL (7-20) 8 mg/dL (7-20) Creatinine 4.4 mg/dL (0.6-1.0) 2.3 mg/dL (0.6-1.0) Estimated GFR (Cockcroft-Gault) 11.8 25.0 Glucose Level 103 mg/dL (70-99) 90 mg/dL (70-99) Calcium Level 8.8 mg/dL (8.5-10.1) 9.1 mg/dL (8.5-10.1) Laboratory Tests Test 11/29/17 07:30 White Blood Count 14.1 x10^3/uL (4.0-11.0) Red Blood Count 2.94 x10^6/uL (3.50-5.40) Hemoglobin 7.7 g/dL (12.0-15.5) Hematocrit 24.2 % (36.0-47.0) Mean Corpuscular Volume 82 fL (79-100) Mean Corpuscular Hemoglobin 26 pg (25-35) Mean Corpuscular Hemoglobin Concent 32 g/dL (31-37) Red Cell Distribution Width 19.6 % (11.5-14.5) Platelet Count 368 x10^3/uL (140-400) Neutrophils (%) (Auto) 72 % (31-73) Lymphocytes (%) (Auto) 14 % (24-48) Monocytes (%) (Auto) 11 % (0-9) Eosinophils (%) (Auto) 2 % (0-3) Basophils (%) (Auto) 1 % (0-3) Neutrophils # (Auto) 10.2 x10^3uL (1.8-7.7) Lymphocytes # (Auto) 2.0 x10^3/uL (1.0-4.8) Monocytes # (Auto) 1.5 x10^3/uL (0.0-1.1) Eosinophils # (Auto) 0.2 x10^3/uL (0.0-0.7) Basophils # (Auto) 0.1 x10^3/uL (0.0-0.2) Sodium Level 143 mmol/L (136-145) Potassium Level 3.5 mmol/L (3.5-5.1) Chloride Level 104 mmol/L (98-107) Carbon Dioxide Level 32 mmol/L (21-32) Anion Gap 7 (6-14) Blood Urea Nitrogen 8 mg/dL (7-20) Creatinine 2.3 mg/dL (0.6-1.0) Estimated GFR (Cockcroft-Gault) 25.0 Glucose Level 90 mg/dL (70-99) Calcium Level 9.1 mg/dL (8.5-10.1) Assessment/Plan Assessment/Plan Pt has arterial duplex with evidence of right leg arterial disease with some ischemic rest pain to her right toe and a non healing ulcer on her right calf. It is likely she may have iliac disease as well as right leg arterial disease. She would benefit from an aortogram with runoff with intervention if possible. There is the complication of her bilateral AV shunts on both groin/proximal thighs, which may require arm access for aortogram. While discussing this with the patient she was unsure if it was something she wanted to move forward with, she is planning on speaking with her and letting us know. I discussed this with Dr. Alegre who will also see the patient and confirm further decisions. She is currently being treated for active infection however I do not see overt signs of infection surrounding either HD access' on her proximal thighs. She does has an open chronic ulcer to her right lower calf area. Our recommendation was explained in detail to the patient who understood and will let us know her decision. All questions were answered to satisfaction. Pt examined and interviwed. Has near limb-threating ischemia of the right foot without ischemic tissue necrosis. Stable wound left posterior calf. Pt currently palliative care. Should intervention be desired, she would need arm approach aortogram with possible percutaneous intervention. She is undecided at this point. CHETAN NAVARRO Nov 29, 2017 11:59 CASSIUS ALEGRE II, MD Nov 29, 2017 16:31
--- NOTE | 2017-11-29 12:25 | RAD ---
Portable right foot, 2 views, 11/29/2017: HISTORY: Foot and toe pain There is severe patchy bony demineralization. The bony structures are therefore suboptimally delineated. There are moderate scattered degenerative changes. No acute fracture or destructive bony lesion is seen. Extensive arterial calcifications are present. IMPRESSION: 1. Severe patchy bony demineralization. 2. No acute bony abnormality is detected. Electronically signed by: Juvenal Davis MD (11/29/2017 12:21 PM) [facility]
--- NOTE | 2017-11-29 12:28 | PDOC ---
PULMONARY PROGRESS NOTES Subjective no soa Vitals Vital Signs Date Time Temp Pulse Resp B/P (MAP) Pulse Ox O2 Delivery O2 Flow Rate FiO2 11/29/17 12:04 20 95 Nasal Cannula 2.0 11/29/17 12:03 61 89/45 11/29/17 07:00 98.1 98.1 ROS: No Nausea General: Alert, No acute distress HEENT: Other (nc at perrl ) Lungs: Clear Cardiovascular: S1, S2 Abdomen: Soft, Non-tender Neuro Exam: Alert Extremities: Other (l bka) Skin: Warm Labs Laboratory Tests Test 11/28/17 04:10 11/29/17 07:30 White Blood Count 14.2 x10^3/uL (4.0-11.0) 14.1 x10^3/uL (4.0-11.0) Red Blood Count 2.79 x10^6/uL (3.50-5.40) 2.94 x10^6/uL (3.50-5.40) Hemoglobin 7.6 g/dL (12.0-15.5) 7.7 g/dL (12.0-15.5) Hematocrit 23.1 % (36.0-47.0) 24.2 % (36.0-47.0) Mean Corpuscular Volume 83 fL (79-100) 82 fL (79-100) Mean Corpuscular Hemoglobin 27 pg (25-35) 26 pg (25-35) Mean Corpuscular Hemoglobin Concent 33 g/dL (31-37) 32 g/dL (31-37) Red Cell Distribution Width 19.3 % (11.5-14.5) 19.6 % (11.5-14.5) Platelet Count 342 x10^3/uL (140-400) 368 x10^3/uL (140-400) Neutrophils (%) (Auto) 80 % (31-73) 72 % (31-73) Lymphocytes (%) (Auto) 10 % (24-48) 14 % (24-48) Monocytes (%) (Auto) 9 % (0-9) 11 % (0-9) Eosinophils (%) (Auto) 1 % (0-3) 2 % (0-3) Basophils (%) (Auto) 0 % (0-3) 1 % (0-3) Neutrophils # (Auto) 11.4 x10^3uL (1.8-7.7) 10.2 x10^3uL (1.8-7.7) Lymphocytes # (Auto) 1.5 x10^3/uL (1.0-4.8) 2.0 x10^3/uL (1.0-4.8) Monocytes # (Auto) 1.2 x10^3/uL (0.0-1.1) 1.5 x10^3/uL (0.0-1.1) Eosinophils # (Auto) 0.1 x10^3/uL (0.0-0.7) 0.2 x10^3/uL (0.0-0.7) Basophils # (Auto) 0.1 x10^3/uL (0.0-0.2) 0.1 x10^3/uL (0.0-0.2) Sodium Level 147 mmol/L (136-145) 143 mmol/L (136-145) Potassium Level 3.2 mmol/L (3.5-5.1) 3.5 mmol/L (3.5-5.1) Chloride Level 110 mmol/L (98-107) 104 mmol/L (98-107) Carbon Dioxide Level 24 mmol/L (21-32) 32 mmol/L (21-32) Anion Gap 13 (6-14) 7 (6-14) Blood Urea Nitrogen 21 mg/dL (7-20) 8 mg/dL (7-20) Creatinine 4.4 mg/dL (0.6-1.0) 2.3 mg/dL (0.6-1.0) Estimated GFR (Cockcroft-Gault) 11.8 25.0 Glucose Level 103 mg/dL (70-99) 90 mg/dL (70-99) Calcium Level 8.8 mg/dL (8.5-10.1) 9.1 mg/dL (8.5-10.1) Laboratory Tests Test 11/29/17 07:30 White Blood Count 14.1 x10^3/uL (4.0-11.0) Red Blood Count 2.94 x10^6/uL (3.50-5.40) Hemoglobin 7.7 g/dL (12.0-15.5) Hematocrit 24.2 % (36.0-47.0) Mean Corpuscular Volume 82 fL (79-100) Mean Corpuscular Hemoglobin 26 pg (25-35) Mean Corpuscular Hemoglobin Concent 32 g/dL (31-37) Red Cell Distribution Width 19.6 % (11.5-14.5) Platelet Count 368 x10^3/uL (140-400) Neutrophils (%) (Auto) 72 % (31-73) Lymphocytes (%) (Auto) 14 % (24-48) Monocytes (%) (Auto) 11 % (0-9) Eosinophils (%) (Auto) 2 % (0-3) Basophils (%) (Auto) 1 % (0-3) Neutrophils # (Auto) 10.2 x10^3uL (1.8-7.7) Lymphocytes # (Auto) 2.0 x10^3/uL (1.0-4.8) Monocytes # (Auto) 1.5 x10^3/uL (0.0-1.1) Eosinophils # (Auto) 0.2 x10^3/uL (0.0-0.7) Basophils # (Auto) 0.1 x10^3/uL (0.0-0.2) Sodium Level 143 mmol/L (136-145) Potassium Level 3.5 mmol/L (3.5-5.1) Chloride Level 104 mmol/L (98-107) Carbon Dioxide Level 32 mmol/L (21-32) Anion Gap 7 (6-14) Blood Urea Nitrogen 8 mg/dL (7-20) Creatinine 2.3 mg/dL (0.6-1.0) Estimated GFR (Cockcroft-Gault) 25.0 Glucose Level 90 mg/dL (70-99) Calcium Level 9.1 mg/dL (8.5-10.1) Medications Active Scripts Medications Dose Route/Sig Max Daily Dose Days Date Category Dose Instructions Multivitamins (Multivitamin) 1 Each Tablet 1 Tab PO DAILY 11/23/17 Reported Artificial Tears (Polyvinyl Alcohol) 15 Ml Drops 1 Drop OU PRN Q15MIN PRN 30 11/16/17 Rx Acetaminophen Supp (Acetaminophen) 650 Mg Supp.rect 650 Mg [place] PRN Q6HRS PRN 30 11/16/17 Rx Hydrocodone-Apap 7.5-325 (Hydrocodone Bit/Acetaminophen) 1 Each Tablet 1 Tab PO PRN Q8HRS PRN 7 11/16/17 Rx Sensipar (Cinacalcet Hcl) 30 Mg Tablet 1 Tab PO HS 11/03/17 Reported Azulfidine (Sulfasalazine) 500 Mg Tablet 500 Mg PO BID 11/03/17 Reported Lomotil Tablet (Diphenoxylate Hcl/Atropine) 1 Each Tablet 1 Tab PO PRN Q8HRS 11/03/17 Reported Nephro-Nabeel Tablet (Folic Acid/Vitamin B Comp W-C) 0.8 Mg Tablet 1 Tab PO DAILY 10/31/17 Reported Triamcinolone Acetonide 0.1% Cream (Triamcinolone Acetonide) 15 Gm Cream..g. 1 Hanh TP PRN Q8HRS 10/31/17 Reported apply to bilat legs topically as needed for skin care Midodrine Hcl 5 Mg Tablet 5 Mg PO TID 10/31/17 Reported notify PCP if BP >180/110, P <60 Impression . IMPRESSION: 1. Abnormal x-ray revealing small right-sided effusion. The patient is status post bilateral thoracentesis back on November 07. Cultures are negative transudative effusion. 2. History of methicillin-resistant Staphylococcus aureus bacteremia, previous admission from 10/31/2017, the source was hemodialyzed catheter. 3. Atrial fibrillation. 4. End-stage renal disease. 5. Anemia. 6. Chronic lateral right leg nonhealing wound. 7. Hypotension, improved Plan . PLAN: 1. Pulmonary status appears to be compensated. No signs of pulmonary infection. will monitor closely. 2. cont abx per id 3. Hemodialysis per Nephrology. 4. s/p fluid bolus/ BP better 5. Palliative care spoke with patient. DNR/DNI. not much to add . will see CHERI Georges MD Nov 29, 2017 12:28
--- NOTE | 2017-11-29 12:29 | PDOC ---
SUBJECTIVE ROS Alert, no complaints OBJECTIVE Vital Signs Vital Signs Date Time Temp Pulse Resp B/P (MAP) Pulse Ox O2 Delivery O2 Flow Rate FiO2 11/29/17 12:04 20 95 Nasal Cannula 2.0 11/29/17 12:03 61 89/45 11/29/17 07:00 98.1 98.1 I & 0 Intake and Output 11/29/17 07:00 Intake Total 480 ml Output Total 3250 ml Balance -2770 ml Intake Oral 480 ml Stool Total 3250 ml PHYSICAL EXAM Physical Exam GENERAL: NAD HEENT: Unremarkable LUNGS: Clear HEART: S1, S2. ABDOMEN: Soft. BS +. Ostomy, nontender EXTREMITIES: Left BKA, stump. 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 DIAGNOSIS/ASSESSMENT Assessment & Plan ESRD- On HD MWF Stable Lytes and Fluid status, no indication for HD today Tomorrow as per her schedule Sepsis MRSA - while on Vanc for MRSA bacteremia from previous admission -Repeat BC from 11/22 & NGTD s/p TDC removal and replaced new OctNov 2017 , Resp failure w/ pleural effusion -stable s/p thoracentesis Anemia- Hgb stable Aranesp as per protocol COMMENT/RELEVANT DATA Meds Current Medications Medications (Trade) Dose Ordered Sig/Yovanny Start Time Stop Time Status Last Admin Dose Admin Acetaminophen (Tylenol Supp) 650 mg PRN Q6HRS PRN 11/23/17 10:45 Acetaminophen (Tylenol) 500 mg 1X PRN PRN 11/28/17 12:30 11/28/17 19:00 DC Acetaminophen/ Hydrocodone Bitart (Lortab 7.5/325) 1 tab PRN Q8HRS PRN 11/23/17 10:45 11/29/17 12:04 1 TAB Albumin Human 200 ml @ 200 mls/hr 1X PRN PRN 11/28/17 12:30 11/28/17 18:29 DC Artificial Tears (Artificial Tears) 1 drop PRN Q15MIN PRN 11/23/17 10:45 Benzocaine (Hurricaine One) 2 spray 1X ONCE 11/27/17 16:45 11/27/17 16:56 DC Ceftaroline Fosamil 200 mg/ Sodium Chloride 250 ml @ 250 mls/hr Q12HR 11/23/17 13:00 11/29/17 09:55 250 MLS/HR Cinacalcet (Sensipar) 30 mg HS 11/23/17 21:00 11/28/17 22:05 30 MG Daptomycin 310 mg/ Sodium Chloride 50 ml @ 100 mls/hr QODAY 11/23/17 14:00 11/29/17 08:31 100 MLS/HR Diphenhydramine HCl (Benadryl) 25 mg 1X PRN PRN 11/28/17 12:30 11/28/17 19:00 DC Diphenoxylate HCl/ Atropine (Lomotil) 1 tab PRN Q8HRS PRN 11/23/17 10:45 11/28/17 22:34 1 TAB Fentanyl Citrate (Fentanyl 2ml Vial) 50 mcg PRN Q5MIN PRN 11/27/17 07:00 11/28/17 06:59 DC Heparin Sodium (Porcine) (Hep Lock Adult) 150 unit PRN Q12HR PRN 11/26/17 16:15 11/29/17 11:04 150 UNIT Hydrocortisone Sodium Succinate (Solu-CORTEF) 100 mg 1X ONCE 11/27/17 09:45 11/27/17 09:46 DC 11/27/17 11:07 100 MG Hydromorphone HCl (Dilaudid) 0.5 mg PRN Q10MIN PRN 11/27/17 07:00 11/28/17 06:59 DC 11/27/17 08:24 0.5 MG Info (PHARMACY MONITORING -- do not chart) 1 each PRN DAILY PRN 11/28/17 12:30 UNV Levofloxacin/ Dextrose 100 ml @ 100 mls/hr Q48H 11/24/17 21:00 11/26/17 11:36 DC 11/25/17 00:00 100 MLS/HR Lidocaine HCl (Viscous Lidocaine) 15 ml 1X ONCE 11/27/17 16:45 11/27/17 16:56 DC Lidocaine HCl (Xylocaine 2% Topical 30gm Tube) 1 tj 1X ONCE 11/27/17 16:45 11/27/17 16:56 DC Lidocaine HCl (Xylocaine 2% Topical 5gm Tube) 1 tj 1X ONCE 11/26/17 12:45 11/26/17 12:46 DC Lidocaine HCl (Xylocaine-Mpf 1% 2ml Vial) 2 ml PRN 1X PRN 11/27/17 07:00 11/28/17 06:59 DC Lidocaine/ Epinephrine (LIDOCAINE 1%-EPI 1:100,000 Multi-Dose) 20 ml 1X ONCE 11/26/17 15:00 11/26/17 15:01 DC Midazolam HCl (Versed) 2 mg 1X ONCE 11/26/17 15:00 11/26/17 15:01 DC 11/26/17 16:01 1 MG Midodrine (Proamatine) 5 mg [id number] 11/23/17 13:00 11/29/17 12:03 5 MG Morphine Sulfate (Morphine Sulfate) 1 mg PRN Q10MIN PRN 11/27/17 07:00 11/28/17 06:59 DC Multivitamins (Thera M Plus) 1 tab DAILY 11/23/17 12:00 11/29/17 08:40 1 TAB Ondansetron HCl (Zofran) 4 mg PRN Q6HRS PRN 11/27/17 07:00 11/28/17 06:59 DC Piperacillin Sod/ Tazobactam Sod 2.25 gm/Sodium Chloride 50 ml @ 100 mls/hr Q8HRS 11/23/17 06:00 11/23/17 11:56 DC 11/23/17 04:58 100 MLS/HR Piperacillin Sod/ Tazobactam Sod 4.5 gm/Sodium Chloride 100 ml @ 200 mls/hr Q6HRS 11/23/17 00:00 11/23/17 00:29 DC 11/22/17 23:16 200 MLS/HR Potassium Chloride (Klor-Con) 40 meq 1X ONCE 11/23/17 09:00 11/23/17 09:03 DC 11/23/17 09:04 40 MEQ Prochlorperazine Edisylate (Compazine) 5 mg PACU PRN PRN 11/27/17 07:00 11/28/17 06:59 DC Propofol 20 ml @ As Directed STK-MED ONCE 11/27/17 16:26 11/27/17 16:27 DC Ringer's Solution 1,000 ml @ 30 mls/hr Q24H 11/27/17 07:00 11/27/17 18:59 UNV Sodium Chloride 1,000 ml @ 400 mls/hr Q2H30M PRN 11/28/17 12:24 11/28/17 19:00 DC Sodium Chloride (Normal Saline Flush) 10 ml QSHIFT PRN 11/26/17 12:45 Sulfasalazine (Azulfidine) 500 mg BID 11/23/17 21:00 11/29/17 08:39 500 MG Triamcinolone Acetonide (Kenalog) 1 tj PRN Q8HRS PRN 11/23/17 10:45 Vitamin B Complex/ Vitamin C (Yaneth-Nabeel) 1 tab DAILY 11/23/17 11:00 11/29/17 08:40 1 TAB Lab Laboratory Tests Test 11/29/17 07:30 White Blood Count 14.1 x10^3/uL (4.0-11.0) Red Blood Count 2.94 x10^6/uL (3.50-5.40) Hemoglobin 7.7 g/dL (12.0-15.5) Hematocrit 24.2 % (36.0-47.0) Mean Corpuscular Volume 82 fL (79-100) Mean Corpuscular Hemoglobin 26 pg (25-35) Mean Corpuscular Hemoglobin Concent 32 g/dL (31-37) Red Cell Distribution Width 19.6 % (11.5-14.5) Platelet Count 368 x10^3/uL (140-400) Neutrophils (%) (Auto) 72 % (31-73) Lymphocytes (%) (Auto) 14 % (24-48) Monocytes (%) (Auto) 11 % (0-9) Eosinophils (%) (Auto) 2 % (0-3) Basophils (%) (Auto) 1 % (0-3) Neutrophils # (Auto) 10.2 x10^3uL (1.8-7.7) Lymphocytes # (Auto) 2.0 x10^3/uL (1.0-4.8) Monocytes # (Auto) 1.5 x10^3/uL (0.0-1.1) Eosinophils # (Auto) 0.2 x10^3/uL (0.0-0.7) Basophils # (Auto) 0.1 x10^3/uL (0.0-0.2) Sodium Level 143 mmol/L (136-145) Potassium Level 3.5 mmol/L (3.5-5.1) Chloride Level 104 mmol/L (98-107) Carbon Dioxide Level 32 mmol/L (21-32) Anion Gap 7 (6-14) Blood Urea Nitrogen 8 mg/dL (7-20) Creatinine 2.3 mg/dL (0.6-1.0) Estimated GFR (Cockcroft-Gault) 25.0 Glucose Level 90 mg/dL (70-99) Calcium Level 9.1 mg/dL (8.5-10.1) Results All relevant outside records, renal labs, imaging studies, telemetry/EKG's were reviewed. YVONNE ZAVALA MD Nov 29, 2017 12:28
--- NOTE | 2017-11-29 12:55 | PDOC ---
PROGRESS NOTES Chief Complaint Chief Complaint Sepsis MRSA from 11/21 POA ([facility]) while on Vanc for MRSA bacteremia from previous admission Hypotension on midodrine Right basilar atelectasis versus infiltrate H/O High grade MRSA bacteremia previous admission from 10/31. source infected HD cath,s/p removal. Discharged on vanc -Repeat BC on 11/02, 11/04 & 11/08 positive. BC 11/13 negative -ECHO without evidence of veg H/O infected right HDC cath s/p removal on 11/01 + MRSA. -s/p interval placement of a temp [facility]/HDC on 11/01; removed. -s/p Tunneled HDC placement on 11/16. 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 C. diff neg 11/22 rt toes pain with distal rt leg PAD plan: fu with id, on iv abx ,, need terminologist iv abx given previious bcx MRSA has chest iv acess has chest HD catheter get Vacular consult for PAD on midodrine waiting for insurance to approve to rehab for iv abx dvt ppx PTOT PHILIP neg vegetation History of Present Illness History of Present Illness Pt seen and examined VSS Looks a little stronger chronic hypotension, IV fluid bolus given cont HD on daptomycin, Ceftaroline. _ ID following still has rt toes pain with tenderness. Vitals Vitals Vital Signs Date Time Temp Pulse Resp B/P (MAP) Pulse Ox O2 Delivery O2 Flow Rate FiO2 11/29/17 12:04 20 95 Nasal Cannula 2.0 11/29/17 12:03 61 89/45 11/29/17 07:00 98.1 98.1 Physical Exam Physical Exam GENERAL: Propped up in bed, alert, NAD. looks well HEENT: Oral cavity dry. Dentures. no conjunc petechia LUNGS: Clear HEART: S1, S2. ABDOMEN: Soft. BS +. Ostomy, nontender EXTREMITIES: Left BKA, stump. Right lateral leg wound. 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 Tunneled HDC (11/16) w/o signs of complications. Left chest PICC - clean General: Alert, Oriented X3, No acute distress Heart: Normal S1, Normal S2 Lungs: Clear Abdomen: Soft, No tenderness Extremities: No clubbing, No cyanosis Skin: Other (Mottling to right toe, right posterior calf with open ulcer, mild surrounding erythema. ) Labs LABS Laboratory Tests Test 11/29/17 07:30 White Blood Count 14.1 x10^3/uL (4.0-11.0) Red Blood Count 2.94 x10^6/uL (3.50-5.40) Hemoglobin 7.7 g/dL (12.0-15.5) Hematocrit 24.2 % (36.0-47.0) Mean Corpuscular Volume 82 fL (79-100) Mean Corpuscular Hemoglobin 26 pg (25-35) Mean Corpuscular Hemoglobin Concent 32 g/dL (31-37) Red Cell Distribution Width 19.6 % (11.5-14.5) Platelet Count 368 x10^3/uL (140-400) Neutrophils (%) (Auto) 72 % (31-73) Lymphocytes (%) (Auto) 14 % (24-48) Monocytes (%) (Auto) 11 % (0-9) Eosinophils (%) (Auto) 2 % (0-3) Basophils (%) (Auto) 1 % (0-3) Neutrophils # (Auto) 10.2 x10^3uL (1.8-7.7) Lymphocytes # (Auto) 2.0 x10^3/uL (1.0-4.8) Monocytes # (Auto) 1.5 x10^3/uL (0.0-1.1) Eosinophils # (Auto) 0.2 x10^3/uL (0.0-0.7) Basophils # (Auto) 0.1 x10^3/uL (0.0-0.2) Sodium Level 143 mmol/L (136-145) Potassium Level 3.5 mmol/L (3.5-5.1) Chloride Level 104 mmol/L (98-107) Carbon Dioxide Level 32 mmol/L (21-32) Anion Gap 7 (6-14) Blood Urea Nitrogen 8 mg/dL (7-20) Creatinine 2.3 mg/dL (0.6-1.0) Estimated GFR (Cockcroft-Gault) 25.0 Glucose Level 90 mg/dL (70-99) Calcium Level 9.1 mg/dL (8.5-10.1) Assessment and Plan Assessmemt and Plan Problems Medical Problems: (1) End stage renal disease Status: Acute (2) Fever Status: Acute (3) Leukocytosis Status: Acute Comment Review of Relevant I have reviewed the following items olivia (where applicable) has been applied. Labs Laboratory Tests Test 11/28/17 04:10 11/29/17 07:30 White Blood Count 14.2 x10^3/uL (4.0-11.0) 14.1 x10^3/uL (4.0-11.0) Red Blood Count 2.79 x10^6/uL (3.50-5.40) 2.94 x10^6/uL (3.50-5.40) Hemoglobin 7.6 g/dL (12.0-15.5) 7.7 g/dL (12.0-15.5) Hematocrit 23.1 % (36.0-47.0) 24.2 % (36.0-47.0) Mean Corpuscular Volume 83 fL (79-100) 82 fL (79-100) Mean Corpuscular Hemoglobin 27 pg (25-35) 26 pg (25-35) Mean Corpuscular Hemoglobin Concent 33 g/dL (31-37) 32 g/dL (31-37) Red Cell Distribution Width 19.3 % (11.5-14.5) 19.6 % (11.5-14.5) Platelet Count 342 x10^3/uL (140-400) 368 x10^3/uL (140-400) Neutrophils (%) (Auto) 80 % (31-73) 72 % (31-73) Lymphocytes (%) (Auto) 10 % (24-48) 14 % (24-48) Monocytes (%) (Auto) 9 % (0-9) 11 % (0-9) Eosinophils (%) (Auto) 1 % (0-3) 2 % (0-3) Basophils (%) (Auto) 0 % (0-3) 1 % (0-3) Neutrophils # (Auto) 11.4 x10^3uL (1.8-7.7) 10.2 x10^3uL (1.8-7.7) Lymphocytes # (Auto) 1.5 x10^3/uL (1.0-4.8) 2.0 x10^3/uL (1.0-4.8) Monocytes # (Auto) 1.2 x10^3/uL (0.0-1.1) 1.5 x10^3/uL (0.0-1.1) Eosinophils # (Auto) 0.1 x10^3/uL (0.0-0.7) 0.2 x10^3/uL (0.0-0.7) Basophils # (Auto) 0.1 x10^3/uL (0.0-0.2) 0.1 x10^3/uL (0.0-0.2) Sodium Level 147 mmol/L (136-145) 143 mmol/L (136-145) Potassium Level 3.2 mmol/L (3.5-5.1) 3.5 mmol/L (3.5-5.1) Chloride Level 110 mmol/L (98-107) 104 mmol/L (98-107) Carbon Dioxide Level 24 mmol/L (21-32) 32 mmol/L (21-32) Anion Gap 13 (6-14) 7 (6-14) Blood Urea Nitrogen 21 mg/dL (7-20) 8 mg/dL (7-20) Creatinine 4.4 mg/dL (0.6-1.0) 2.3 mg/dL (0.6-1.0) Estimated GFR (Cockcroft-Gault) 11.8 25.0 Glucose Level 103 mg/dL (70-99) 90 mg/dL (70-99) Calcium Level 8.8 mg/dL (8.5-10.1) 9.1 mg/dL (8.5-10.1) Laboratory Tests Test 11/29/17 07:30 White Blood Count 14.1 x10^3/uL (4.0-11.0) Red Blood Count 2.94 x10^6/uL (3.50-5.40) Hemoglobin 7.7 g/dL (12.0-15.5) Hematocrit 24.2 % (36.0-47.0) Mean Corpuscular Volume 82 fL (79-100) Mean Corpuscular Hemoglobin 26 pg (25-35) Mean Corpuscular Hemoglobin Concent 32 g/dL (31-37) Red Cell Distribution Width 19.6 % (11.5-14.5) Platelet Count 368 x10^3/uL (140-400) Neutrophils (%) (Auto) 72 % (31-73) Lymphocytes (%) (Auto) 14 % (24-48) Monocytes (%) (Auto) 11 % (0-9) Eosinophils (%) (Auto) 2 % (0-3) Basophils (%) (Auto) 1 % (0-3) Neutrophils # (Auto) 10.2 x10^3uL (1.8-7.7) Lymphocytes # (Auto) 2.0 x10^3/uL (1.0-4.8) Monocytes # (Auto) 1.5 x10^3/uL (0.0-1.1) Eosinophils # (Auto) 0.2 x10^3/uL (0.0-0.7) Basophils # (Auto) 0.1 x10^3/uL (0.0-0.2) Sodium Level 143 mmol/L (136-145) Potassium Level 3.5 mmol/L (3.5-5.1) Chloride Level 104 mmol/L (98-107) Carbon Dioxide Level 32 mmol/L (21-32) Anion Gap 7 (6-14) Blood Urea Nitrogen 8 mg/dL (7-20) Creatinine 2.3 mg/dL (0.6-1.0) Estimated GFR (Cockcroft-Gault) 25.0 Glucose Level 90 mg/dL (70-99) Calcium Level 9.1 mg/dL (8.5-10.1) Microbiology 11/23/17 Blood Culture - Final, Complete NO GROWTH AFTER 5 DAYS 11/23/17 Anaerobic/Aerobic Culture - Final, Complete 11/23/17 Anaerobic Culture Result 1 (PARTH) - Final, Complete 11/23/17 Aerobic Culture - Final, Complete 11/23/17 Aerobic Culture Result 1 (PARTH) - Final, Complete 11/23/17 Gram Stain - Final, Complete 11/23/17 Gram Stain Result 1 (PARTH) - Final, Complete 11/23/17 Gram Stain Result 2 (PARTH) - Final, Complete Medications Current Medications Levofloxacin/ Dextrose 150 ml @ 100 mls/hr Q24H IV Last administered on at 20:36; Start 11/22/17 at 20:00; Stop 11/23/17 at 00:00; Status DC Piperacillin Sod/ Tazobactam Sod 4.5 gm/Sodium Chloride 100 ml @ 200 mls/hr Q6HRS IV Last administered on 11/22/17at 23:16; Start 11/23/17 at 00:00; Stop 11/23/17 at 00:29; Status DC Acetaminophen (Tylenol) 1,000 mg 1X ONCE PO Last administered on 11/22/17at 21 :48; Start 11/22/17 at 21:30; Stop 11/22/17 at 21:31; Status DC Sodium Chloride 500 ml @ 500 mls/hr 1X ONCE IV Last administered on at 21:49; Start 11/22/17 at 21:30; Stop 11/22/17 at 22:29; Status DC Ondansetron HCl (Zofran) 4 mg PRN Q8HRS PRN IV NAUSEA/VOMITING 1ST CHOICE; Start 11/22/17 at 21:30; Stop 11/23/17 at 21:29; Status DC Fentanyl Citrate (Fentanyl 2ml Vial) 50 mcg PRN Q2HR PRN IV SEVERE PAIN Last administered on 11/23/17at 05:05; Start 11/22/17 at 21:30; Stop 11/23/17 at 21 :29; Status DC Acetaminophen (Tylenol) 650 mg PRN Q4HRS PRN PO FEVER Last administered on 01/29at 09:57; Start 11/22/17 at 21:30; Stop 11/23/17 at 21:29; Status DC Piperacillin Sod/ Tazobactam Sod 2.25 gm/Sodium Chloride 50 ml @ 100 mls/hr Q8HRS IV Last administered on 11/23/17at 04:58; Start 11/23/17 at 06:00; Stop 11/23/17 at 11:56; Status DC Levofloxacin/ Dextrose 100 ml @ 100 mls/hr Q48H IV Last administered on at 00:00; Start 11/24/17 at 21:00; Stop 11/26/17 at 11:36; Status DC Potassium Chloride (Klor-Con) 40 meq 1X ONCE PO Last administered on at 09:04; Start 11/23/17 at 09:00; Stop 11/23/17 at 09:03; Status DC Acetaminophen (Tylenol Supp) 650 mg PRN Q6HRS PRN ID HEADACHE / TEMP; Start at 10:45 Cinacalcet (Sensipar) 30 mg HS PO Last administered on 11/28/17at 22:05; Start 11/23/17 at 21:00 Diphenoxylate HCl/ Atropine (Lomotil) 1 tab PRN Q8HRS PRN PO DIARRHEA Last administered on 11/28/17at 22:34; Start 11/23/17 at 10:45 Vitamin B Complex/ Vitamin C (Yaneth-Nabeel) 1 tab DAILY PO Last administered on at 08:40; Start 11/23/17 at 11:00 Acetaminophen/ Hydrocodone Bitart (Lortab 7.5/325) 1 tab PRN Q8HRS PRN PO PAIN MODERATE Last administered on 11/29/17at 12:04; Start 11/23/17 at 10:45 Artificial Tears (Artificial Tears) 1 drop PRN Q15MIN PRN OU DRY EYE; Start at 10:45 Triamcinolone Acetonide (Kenalog) 1 hanh PRN Q8HRS PRN TP ITCHING; Start at 10:45 Midodrine (Proamatine) 5 mg [id number] PO Last administered on 11/29/17at 12:03; Start 11/23/17 at 13:00 Multivitamins (Thera M Plus) 1 tab DAILY PO Last administered on 11/29/17at 08: 40; Start 11/23/17 at 12:00 Sulfasalazine (Azulfidine) 500 mg BID PO Last administered on 11/29/17at 08:39 ; Start 11/23/17 at 21:00 Daptomycin 310 mg/ Sodium Chloride 50 ml @ 100 mls/hr QODAY IV Last administered on 11/29/17at 08:31; Start 11/23/17 at 14:00 Ceftaroline Fosamil 200 mg/ Sodium Chloride 250 ml @ 250 mls/hr Q12HR IV Last administered on 11/29/17at 09:55; Start 11/23/17 at 13:00 Sodium Chloride 1,000 ml @ 1,000 mls/hr Q1H PRN IV hypotension; Start at 12:45; Stop 11/23/17 at 18:44; Status DC Sodium Chloride (Normal Saline Flush) 10 ml 1X PRN PRN IV AP catheter pack; Start 11/23/17 at 12:45; Stop 11/24/17 at 12:44; Status DC Sodium Chloride (Normal Saline Flush) 10 ml 1X PRN PRN 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; Start 11/23/17 at 12:45; Stop 11/24/17 at 12:44; Status DC Sodium Chloride 1,000 ml @ 400 mls/hr Q2H30M PRN IV PATENCY; Start 11/23/17 at 12:45; Stop 11/24/17 at 00:44; Status DC Info (PHARMACY MONITORING -- do not chart) 1 each PRN DAILY PRN MC SEE COMMENTS ; Start 11/23/17 at 12:45; Status UNV Info (PHARMACY MONITORING -- do not chart) 1 each PRN DAILY PRN MC SEE COMMENTS ; Start 11/23/17 at 12:45 Fentanyl Citrate (Fentanyl 2ml Vial) 50 mcg PRN Q2HR PRN IV SEVERE PAIN Last administered on 11/26/17at 06:09; Start 11/24/17 at 00:30 Sodium Chloride 1,000 ml @ 1,000 mls/hr Q1H PRN IV hypotension; Start at 11:31; Stop 11/26/17 at 17:30; Status DC Sodium Chloride 1,000 ml @ 400 mls/hr Q2H30M PRN IV PATENCY; Start 11/26/17 at 11:31; Stop 11/26/17 at 23:30; Status DC Info (PHARMACY MONITORING -- do not chart) 1 each PRN DAILY PRN MC SEE COMMENTS ; Start 11/26/17 at 11:45; Status UNV Sodium Chloride (Normal Saline Flush) 10 ml QSHIFT PRN IV AFTER MEDS AND BLOOD DRAWS; Start 11/26/17 at 12:45 Lidocaine HCl (Xylocaine 2% Topical 5gm Tube) 1 hanh 1X ONCE TP ; Start at 12:45; Stop 11/26/17 at 12:46; Status DC Lidocaine HCl (Viscous Lidocaine) 15 ml 1X ONCE MM ; Start 11/26/17 at 12:45; Stop 11/26/17 at 12:46; Status DC Benzocaine (Hurricaine One) 2 spray 1X ONCE MM ; Start 11/26/17 at 12:45; Stop 11/26/17 at 12:46; Status DC Midazolam HCl (Versed) 2 mg STK-MED ONCE .ROUTE ; Start 11/26/17 at 14:38; Stop 11/26/17 at 14:39; Status DC Fentanyl Citrate (Fentanyl 2ml Vial) 100 mcg STK-MED ONCE .ROUTE ; Start at 14:38; Stop 11/26/17 at 14:39; Status DC Lidocaine/ Epinephrine (LIDOCAINE 1%-EPI 1:100,000 Multi-Dose) 20 ml STK-MED ONCE .ROUTE ; Start 11/26/17 at 14:38; Stop 11/26/17 at 14:39; Status DC Heparin Sodium (Porcine) (Hep Lock Adult) 500 unit STK-MED ONCE IV ; Start at 14:45; Stop 11/26/17 at 14:46; Status DC Midazolam HCl (Versed) 2 mg 1X ONCE IV Last administered on 11/26/17at 16:01; Start 11/26/17 at 15:00; Stop 11/26/17 at 15:01; Status DC Fentanyl Citrate (Fentanyl 2ml Vial) 100 mcg 1X ONCE IV ; Start 11/26/17 at 15 :00; Stop 11/26/17 at 15:01; Status DC Lidocaine/ Epinephrine (LIDOCAINE 1%-EPI 1:100,000 Multi-Dose) 20 ml 1X ONCE IJ ; Start 11/26/17 at 15:00; Stop 11/26/17 at 15:01; Status DC Heparin Sodium (Porcine) (Hep Lock Adult) 220 unit 1X ONCE IV Last administered on 11/26/17at 15:00; Start 11/26/17 at 15:00; Stop 11/26/17 at 15 :01; Status DC Ondansetron HCl (Zofran) 4 mg PRN Q6HRS PRN IV NAUSEA/VOMITING; Start at 07:00; Stop 11/28/17 at 06:59; Status DC Fentanyl Citrate (Fentanyl 2ml Vial) 25 mcg PRN Q5MIN PRN IV MILD PAIN; Start 11/27/17 at 07:00; Stop 11/28/17 at 06:59; Status DC Fentanyl Citrate (Fentanyl 2ml Vial) 50 mcg PRN Q5MIN PRN IV MODERATE TO SEVERE PAIN; Start 11/27/17 at 07:00; Stop 11/28/17 at 06:59; Status DC Morphine Sulfate (Morphine Sulfate) 1 mg PRN Q10MIN PRN IV SEVERE PAIN; Start 11/27/17 at 07:00; Stop 11/28/17 at 06:59; Status DC Ringer's Solution 1,000 ml @ 30 mls/hr Q24H IV ; Start 11/27/17 at 07:00; Stop 11/27/17 at 18:59; Status UNV Lidocaine HCl (Xylocaine-Mpf 1% 2ml Vial) 2 ml PRN 1X PRN ID PRIOR TO IV START ; Start 11/27/17 at 07:00; Stop 11/28/17 at 06:59; Status DC Hydromorphone HCl (Dilaudid) 0.5 mg PRN Q10MIN PRN IV SEV PAIN, Second choice Last administered on 11/27/17at 08:24; Start 11/27/17 at 07:00; Stop 11/28/17 at 06:59; Status DC Prochlorperazine Edisylate (Compazine) 5 mg PACU PRN PRN IV NAUSEA 2nd CHOICE, MRX1; Start 11/27/17 at 07:00; Stop 11/28/17 at 06:59; Status DC Heparin Sodium (Porcine) (Hep Lock Adult) 110 unit 1X ONCE IV Last administered on 11/26/17at 16:00; Start 11/26/17 at 16:00; Stop 11/26/17 at 16 :20; Status DC Heparin Sodium (Porcine) (Hep Lock Adult) 150 unit PRN Q12HR PRN IV SEE COMMENTS Last administered on 11/29/17at 11:04; Start 11/26/17 at 16:15 Sodium Chloride 1,000 ml @ 1,000 mls/hr 1X ONCE IV Last administered on 11/27at 10:28; Start 11/27/17 at 09:45; Stop 11/27/17 at 10:44; Status DC Hydrocortisone Sodium Succinate (Solu-CORTEF) 100 mg 1X ONCE IV Last administered on 11/27/17at 11:07; Start 11/27/17 at 09:45; Stop 11/27/17 at 09 :46; Status DC Benzocaine (Hurricaine One) 1 spray STK-MED ONCE .ROUTE ; Start 11/27/17 at 14: 58; Stop 11/27/17 at 14:59; Status DC Lidocaine HCl (Xylocaine 2% Topical 30gm Tube) 30 hanh STK-MED ONCE TP ; Start 11/27/17 at 14:58; Stop 11/27/17 at 14:59; Status DC Lidocaine HCl (Viscous Lidocaine) 15 ml STK-MED ONCE .ROUTE ; Start 11/27/17 at 14:58; Stop 11/27/17 at 14:59; Status DC Propofol 20 ml @ As Directed STK-MED ONCE IV ; Start 11/27/17 at 16:26; Stop 11/27/17 at 16:27; Status DC Lidocaine HCl (Viscous Lidocaine) 15 ml 1X ONCE SWSW ; Start 11/27/17 at 16:45 ; Stop 11/27/17 at 16:56; Status DC Benzocaine (Hurricaine One) 2 spray 1X ONCE MM ; Start 11/27/17 at 16:45; Stop 11/27/17 at 16:56; Status DC Lidocaine HCl (Xylocaine 2% Topical 30gm Tube) 1 hanh 1X ONCE TP ; Start at 16:45; Stop 11/27/17 at 16:56; Status DC Sodium Chloride 1,000 ml @ 1,000 mls/hr Q1H PRN IV hypotension; Start at 12:24; Stop 11/28/17 at 18:23; Status DC Albumin Human 200 ml @ 200 mls/hr 1X PRN PRN IV Hypotension; Start 11/28/17 at 12:30; Stop 11/28/17 at 18:29; Status DC Acetaminophen (Tylenol) 500 mg 1X PRN PRN PO MILD PAIN / TEMP; Start 11/28/17 at 12:30; Stop 11/28/17 at 19:00; Status DC Diphenhydramine HCl (Benadryl) 25 mg 1X PRN PRN IV ITCHING; Start 11/28/17 at 12:30; Stop 11/28/17 at 19:00; Status DC Diphenhydramine HCl (Benadryl) 25 mg 1X PRN PRN IV ITCHING; Start 11/28/17 at 12:30; Stop 11/28/17 at 19:00; Status DC Sodium Chloride 1,000 ml @ 400 mls/hr Q2H30M PRN IV PATENCY; Start 11/28/17 at 12:24; Stop 11/28/17 at 19:00; Status DC Info (PHARMACY MONITORING -- do not chart) 1 each PRN DAILY PRN MC SEE COMMENTS ; Start 11/28/17 at 12:30; Status UNV Darbepoetin Justin (Aranesp) 60 mcg WEEKLYHS SQ ; Start 11/29/17 at 21:00 Active Scripts Active Artificial Tears (Polyvinyl Alcohol) 15 Ml Drops 1 Drop OU PRN Q15MIN PRN 30 Days Acetaminophen Supp (Acetaminophen) 650 Mg Supp.rect 650 Mg ID PRN Q6HRS PRN 30 Days Hydrocodone-Apap 7.5-325 (Hydrocodone Bit/Acetaminophen) 1 Each Tablet 1 Tab PO PRN Q8HRS PRN 7 Days Reported Multivitamins (Multivitamin) 1 Each Tablet 1 Tab PO DAILY Sensipar (Cinacalcet Hcl) 30 Mg Tablet 1 Tab PO HS Azulfidine (Sulfasalazine) 500 Mg Tablet 500 Mg PO BID Lomotil Tablet (Diphenoxylate Hcl/Atropine) 1 Each Tablet 1 Tab PO PRN Q8HRS Nephro-Nabeel Tablet (Folic Acid/Vitamin B Comp W-C) 0.8 Mg Tablet 1 Tab PO DAILY Triamcinolone Acetonide 0.1% Cream (Triamcinolone Acetonide) 15 Gm Cream..g. 1 Hanh TP PRN Q8HRS apply to bilat legs topically as needed for skin care Midodrine Hcl 5 Mg Tablet 5 Mg PO TID notify PCP if BP >180/110, P <60 Vitals/I & O Vital Sign - Last 24 Hours 11/28/17 11/28/17 11/28/17 11/28/17 13:37 15:00 18:04 19:00 Temp 97.2 97.9 97.2 97.9 Pulse 69 67 76 Resp 18 18 18 B/P (MAP) 78/41 113/49 (70) 88/47 (61) Pulse Ox 95 96 98 O2 Delivery Nasal Cannula Nasal Cannula Nasal Cannula O2 Flow Rate 2.0 2.0 2.0 11/28/17 11/28/17 11/28/17 11/29/17 20:00 22:06 23:00 03:00 Temp 97.5 97.9 97.5 97.9 Pulse 76 74 65 Resp 18 18 B/P (MAP) 88/47 73/35 (48) 86/46 (59) Pulse Ox 96 97 O2 Delivery Nasal Cannula Nasal Cannula Nasal Cannula O2 Flow Rate 2.0 2.0 2.0 11/29/17 11/29/17 11/29/17 11/29/17 03:06 04:06 05:34 07:00 Temp 98.1 98.1 Pulse 65 61 Resp 18 B/P (MAP) 86/46 89/45 (60) Pulse Ox 95 O2 Delivery Nasal Cannula Nasal Cannula Room Air O2 Flow Rate 4.0 11/29/17 11/29/17 12:03 12:04 Pulse 61 Resp 20 B/P (MAP) 89/45 Pulse Ox 95 O2 Delivery Nasal Cannula O2 Flow Rate 2.0 Intake and Output 11/28/17 11/28/17 11/29/17 15:00 23:00 07:00 Intake Total 480 ml Output Total 1350 ml 1900 ml Balance 480 ml -1350 ml -1900 ml Nutrition Consultation Dietary Evaluation: Recommendations by RD: Increase Calorie Intake, Protein supplementation Comments: supplements bid mvi/ renevite Expected Outcomes/Goals: to meet > 75% est nutr needs improved wound status Malnutrition Findings: Body Fat Depletion (Non Severe: Mod to Severe Weight Status: Underweight BEULAH PINK MD Nov 29, 2017 12:55
[2017-11-29 15:00] VITALS: BP 85/44
[2017-11-29 19:00] VITALS: BP 79/44
[2017-11-29] MEDS ORDERED: DARBEPOETIN ALFA 60 MCG/0.3 ML DISP.SYRIN. SQ SCH (21:00)
[2017-11-29] MEDS: CINACALCET HCL 30 MG TABLET PO SCH (21:48)
[2017-11-29 23:06] VITALS: BP 83/44
[2017-11-30 03:10] VITALS: BP 89/46
[2017-11-30] MEDS: HYDROcodone/APAP 7.5/325MG 1 TAB TABLET PO PRN ×2 (05:52→17:30)
[2017-11-30] MEDS: MIDODRINE 5 MG TABLET PO SCH ×3 (05:53→17:30)
[2017-11-30] MEDS: HEPARIN PF 500 UNIT/5 ML DISP.SYRIN. IV PRN ×3 (06:11→23:35)
[2017-11-30 06:41] LABS: CALCIUM 9.5 mg/dL (8.5-10.1); GFR 13.2; POTASSIUM 3.6 mmol/L (3.5-5.1)
[2017-11-30 08:00] VITALS: BP 74/42
[2017-11-30 08:16] LABS: BASO # 0.2 x10^3/uL (0.0-0.2); BASO % 1 % (0-3); EOS # 0.3 x10^3/uL (0.0-0.7); EOS % 3 % (0-3); HEMATOCRIT 25.3 % (36.0-47.0); LYMPH # 1.7 x10^3/uL (1.0-4.8); LYMPH % 13 % (24-48); MEAN CORPUSCULAR HEMOGLOBIN 26 pg (25-35); MEAN CORPUSCULAR HGB CONC 32 g/dL (31-37); MEAN CORPUSCULAR VOLUME 83 fL (79-100); MONO # 1.5 x10^3/uL (0.0-1.1); MONO % 11 % (0-9); NEUT # 9.5 x10^3uL (1.8-7.7); NEUT % 72 % (31-73); PLATELET COUNT 391 x10^3/uL (140-400); RED BLOOD COUNT 3.05 x10^6/uL (3.50-5.40); RED CELL DISTRIBUTION WIDTH 19.2 % (11.5-14.5); WHITE BLOOD COUNT 13.2 x10^3/uL (4.0-11.0)
[2017-11-30] MEDS ORDERED: IV NORMAL SALINE 1000ML BAG 1,000 ML IV PRN ×2 (08:42)
[2017-11-30] MEDS ORDERED: 0.9 % SODIUM CHLORIDE 10 ML DISP.SYRIN. IV PRN ×2 (08:45)
[2017-11-30] MEDS ORDERED: DIALYSIS PATIENT. MC PRN ×2 (08:45)
[2017-11-30] MEDS: NORMAL SALINE IV SCH ×2 (09:04→21:59)
[2017-11-30] MEDS: CEFTAROLINE FOSAMIL IV SCH ×2 (09:04→21:59)
[2017-11-30] MEDS: sulfaSALAzine 500 MG TABLET PO SCH ×2 (09:08→21:59)
[2017-11-30] MEDS: FOLIC/VIT B COMP W-C (RENAL) TABLET. PO SCH (09:08)
[2017-11-30] MEDS: MULTIVITAMIN with MINERAL TABLET. PO SCH (09:09)
[2017-11-30] MEDS: DIPHENOXYLATE/ATROPINE TABLET. PO PRN ×2 (09:54→17:55)
--- NOTE | 2017-11-30 10:52 | PDOC ---
PROGRESS NOTES Chief Complaint Chief Complaint Sepsis MRSA from 11/21 POA ([facility]) while on Vanc for MRSA bacteremia from previous admission Hypotension on midodrine Right basilar atelectasis versus infiltrate H/O High grade MRSA bacteremia previous admission from 10/31. source infected HD cath,s/p removal. Discharged on vanc -Repeat BC on 11/02, 11/04 & 11/08 positive. BC 11/13 negative -ECHO without evidence of veg H/O infected right HDC cath s/p removal on 11/01 + MRSA. -s/p interval placement of a temp [facility]/HDC on 11/01; removed. -s/p Tunneled HDC placement on 11/16. 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 C. 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 on midodrine waiting for insurance to approve to rehab for iv abx dvt ppx PTOT PHILIP neg vegetation History of Present Illness History of Present Illness Pt seen and examined VSS Looks a little stronger chronic hypotension, IV fluid bolus given cont HD on daptomycin, Ceftaroline. _ ID following still has rt toes pain with tenderness. Vitals Vitals Vital Signs Date Time Temp Pulse Resp B/P (MAP) Pulse Ox O2 Delivery O2 Flow Rate FiO2 11/30/17 08:00 97.0 66 18 74/42 (53) 97 Nasal Cannula 2.0 97.0 Physical Exam Physical Exam GENERAL: Propped up in bed, alert, NAD. looks well HEENT: Oral cavity dry. Dentures. no conjunc petechia LUNGS: Clear HEART: S1, S2. ABDOMEN: Soft. BS +. Ostomy, nontender EXTREMITIES: Left BKA, stump. Right lateral leg wound, small 1cm, . 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 Tunneled HDC (10/5) w/o signs of complications. Left chest PICC - clean General: Alert, Oriented X3, No acute distress Heart: Normal S1, Normal S2 Lungs: Clear Abdomen: Soft, No tenderness Extremities: No clubbing, No cyanosis Skin: Other (Mottling to right toe, right posterior calf with open ulcer, mild surrounding erythema. ) Labs LABS Laboratory Tests Test 11/30/17 06:00 White Blood Count 13.2 x10^3/uL (4.0-11.0) Red Blood Count 3.05 x10^6/uL (3.50-5.40) Hemoglobin 8.0 g/dL (12.0-15.5) Hematocrit 25.3 % (36.0-47.0) Mean Corpuscular Volume 83 fL (79-100) Mean Corpuscular Hemoglobin 26 pg (25-35) Mean Corpuscular Hemoglobin Concent 32 g/dL (31-37) Red Cell Distribution Width 19.2 % (11.5-14.5) Platelet Count 391 x10^3/uL (140-400) Neutrophils (%) (Auto) 72 % (31-73) Lymphocytes (%) (Auto) 13 % (24-48) Monocytes (%) (Auto) 11 % (0-9) Eosinophils (%) (Auto) 3 % (0-3) Basophils (%) (Auto) 1 % (0-3) Neutrophils # (Auto) 9.5 x10^3uL (1.8-7.7) Lymphocytes # (Auto) 1.7 x10^3/uL (1.0-4.8) Monocytes # (Auto) 1.5 x10^3/uL (0.0-1.1) Eosinophils # (Auto) 0.3 x10^3/uL (0.0-0.7) Basophils # (Auto) 0.2 x10^3/uL (0.0-0.2) Sodium Level 145 mmol/L (136-145) Potassium Level 3.6 mmol/L (3.5-5.1) Chloride Level 106 mmol/L (98-107) Carbon Dioxide Level 28 mmol/L (21-32) Anion Gap 11 (6-14) Blood Urea Nitrogen 19 mg/dL (7-20) Creatinine 4.0 mg/dL (0.6-1.0) Estimated GFR (Cockcroft-Gault) 13.2 Glucose Level 90 mg/dL (70-99) Calcium Level 9.5 mg/dL (8.5-10.1) Assessment and Plan Assessmemt and Plan Problems Medical Problems: (1) End stage renal disease Status: Acute (2) Fever Status: Acute (3) Leukocytosis Status: Acute Comment Review of Relevant I have reviewed the following items olivia (where applicable) has been applied. Labs Laboratory Tests Test 11/29/17 07:30 11/30/17 06:00 White Blood Count 14.1 x10^3/uL (4.0-11.0) 13.2 x10^3/uL (4.0-11.0) Red Blood Count 2.94 x10^6/uL (3.50-5.40) 3.05 x10^6/uL (3.50-5.40) Hemoglobin 7.7 g/dL (12.0-15.5) 8.0 g/dL (12.0-15.5) Hematocrit 24.2 % (36.0-47.0) 25.3 % (36.0-47.0) Mean Corpuscular Volume 82 fL (79-100) 83 fL (79-100) Mean Corpuscular Hemoglobin 26 pg (25-35) 26 pg (25-35) Mean Corpuscular Hemoglobin Concent 32 g/dL (31-37) 32 g/dL (31-37) Red Cell Distribution Width 19.6 % (11.5-14.5) 19.2 % (11.5-14.5) Platelet Count 368 x10^3/uL (140-400) 391 x10^3/uL (140-400) Neutrophils (%) (Auto) 72 % (31-73) 72 % (31-73) Lymphocytes (%) (Auto) 14 % (24-48) 13 % (24-48) Monocytes (%) (Auto) 11 % (0-9) 11 % (0-9) Eosinophils (%) (Auto) 2 % (0-3) 3 % (0-3) Basophils (%) (Auto) 1 % (0-3) 1 % (0-3) Neutrophils # (Auto) 10.2 x10^3uL (1.8-7.7) 9.5 x10^3uL (1.8-7.7) Lymphocytes # (Auto) 2.0 x10^3/uL (1.0-4.8) 1.7 x10^3/uL (1.0-4.8) Monocytes # (Auto) 1.5 x10^3/uL (0.0-1.1) 1.5 x10^3/uL (0.0-1.1) Eosinophils # (Auto) 0.2 x10^3/uL (0.0-0.7) 0.3 x10^3/uL (0.0-0.7) Basophils # (Auto) 0.1 x10^3/uL (0.0-0.2) 0.2 x10^3/uL (0.0-0.2) Sodium Level 143 mmol/L (136-145) 145 mmol/L (136-145) Potassium Level 3.5 mmol/L (3.5-5.1) 3.6 mmol/L (3.5-5.1) Chloride Level 104 mmol/L (98-107) 106 mmol/L (98-107) Carbon Dioxide Level 32 mmol/L (21-32) 28 mmol/L (21-32) Anion Gap 7 (6-14) 11 (6-14) Blood Urea Nitrogen 8 mg/dL (7-20) 19 mg/dL (7-20) Creatinine 2.3 mg/dL (0.6-1.0) 4.0 mg/dL (0.6-1.0) Estimated GFR (Cockcroft-Gault) 25.0 13.2 Glucose Level 90 mg/dL (70-99) 90 mg/dL (70-99) Calcium Level 9.1 mg/dL (8.5-10.1) 9.5 mg/dL (8.5-10.1) Laboratory Tests Test 11/30/17 06:00 White Blood Count 13.2 x10^3/uL (4.0-11.0) Red Blood Count 3.05 x10^6/uL (3.50-5.40) Hemoglobin 8.0 g/dL (12.0-15.5) Hematocrit 25.3 % (36.0-47.0) Mean Corpuscular Volume 83 fL (79-100) Mean Corpuscular Hemoglobin 26 pg (25-35) Mean Corpuscular Hemoglobin Concent 32 g/dL (31-37) Red Cell Distribution Width 19.2 % (11.5-14.5) Platelet Count 391 x10^3/uL (140-400) Neutrophils (%) (Auto) 72 % (31-73) Lymphocytes (%) (Auto) 13 % (24-48) Monocytes (%) (Auto) 11 % (0-9) Eosinophils (%) (Auto) 3 % (0-3) Basophils (%) (Auto) 1 % (0-3) Neutrophils # (Auto) 9.5 x10^3uL (1.8-7.7) Lymphocytes # (Auto) 1.7 x10^3/uL (1.0-4.8) Monocytes # (Auto) 1.5 x10^3/uL (0.0-1.1) Eosinophils # (Auto) 0.3 x10^3/uL (0.0-0.7) Basophils # (Auto) 0.2 x10^3/uL (0.0-0.2) Sodium Level 145 mmol/L (136-145) Potassium Level 3.6 mmol/L (3.5-5.1) Chloride Level 106 mmol/L (98-107) Carbon Dioxide Level 28 mmol/L (21-32) Anion Gap 11 (6-14) Blood Urea Nitrogen 19 mg/dL (7-20) Creatinine 4.0 mg/dL (0.6-1.0) Estimated GFR (Cockcroft-Gault) 13.2 Glucose Level 90 mg/dL (70-99) Calcium Level 9.5 mg/dL (8.5-10.1) Microbiology 11/23/17 Blood Culture - Final, Complete NO GROWTH AFTER 5 DAYS 11/23/17 Anaerobic/Aerobic Culture - Final, Complete 11/23/17 Anaerobic Culture Result 1 (PARTH) - Final, Complete 11/23/17 Aerobic Culture - Final, Complete 11/23/17 Aerobic Culture Result 1 (PARTH) - Final, Complete 11/23/17 Gram Stain - Final, Complete 11/23/17 Gram Stain Result 1 (PARTH) - Final, Complete 11/23/17 Gram Stain Result 2 (PARTH) - Final, Complete Medications Current Medications Levofloxacin/ Dextrose 150 ml @ 100 mls/hr Q24H IV Last administered on at 20:36; Start 11/22/17 at 20:00; Stop 11/23/17 at 00:00; Status DC Piperacillin Sod/ Tazobactam Sod 4.5 gm/Sodium Chloride 100 ml @ 200 mls/hr Q6HRS IV Last administered on 11/22/17at 23:16; Start 11/23/17 at 00:00; Stop 11/23/17 at 00:29; Status DC Acetaminophen (Tylenol) 1,000 mg 1X ONCE PO Last administered on 11/22/17at 21 :48; Start 11/22/17 at 21:30; Stop 11/22/17 at 21:31; Status DC Sodium Chloride 500 ml @ 500 mls/hr 1X ONCE IV Last administered on at 21:49; Start 11/22/17 at 21:30; Stop 11/22/17 at 22:29; Status DC Ondansetron HCl (Zofran) 4 mg PRN Q8HRS PRN IV NAUSEA/VOMITING 1ST CHOICE; Start 11/22/17 at 21:30; Stop 11/23/17 at 21:29; Status DC Fentanyl Citrate (Fentanyl 2ml Vial) 50 mcg PRN Q2HR PRN IV SEVERE PAIN Last administered on 11/23/17at 05:05; Start 11/22/17 at 21:30; Stop 11/23/17 at 21 :29; Status DC Acetaminophen (Tylenol) 650 mg PRN Q4HRS PRN PO FEVER Last administered on 01/29at 09:57; Start 11/22/17 at 21:30; Stop 11/23/17 at 21:29; Status DC Piperacillin Sod/ Tazobactam Sod 2.25 gm/Sodium Chloride 50 ml @ 100 mls/hr Q8HRS IV Last administered on 11/23/17at 04:58; Start 11/23/17 at 06:00; Stop 11/23/17 at 11:56; Status DC Levofloxacin/ Dextrose 100 ml @ 100 mls/hr Q48H IV Last administered on at 00:00; Start 11/24/17 at 21:00; Stop 11/26/17 at 11:36; Status DC Potassium Chloride (Klor-Con) 40 meq 1X ONCE PO Last administered on at 09:04; Start 11/23/17 at 09:00; Stop 11/23/17 at 09:03; Status DC Acetaminophen (Tylenol Supp) 650 mg PRN Q6HRS PRN [place] HEADACHE / TEMP; Start at 10:45 Cinacalcet (Sensipar) 30 mg HS PO Last administered on 11/29/17at 21:48; Start 11/23/17 at 21:00 Diphenoxylate HCl/ Atropine (Lomotil) 1 tab PRN Q8HRS PRN PO DIARRHEA Last administered on 11/30/17at 09:54; Start 11/23/17 at 10:45 Vitamin B Complex/ Vitamin C (Yaneth-Nabeel) 1 tab DAILY PO Last administered on 09:08; Start 11/23/17 at 11:00 Acetaminophen/ Hydrocodone Bitart (Lortab 7.5/325) 1 tab PRN Q8HRS PRN PO PAIN MODERATE Last administered on 11/30/17at 05:52; Start 11/23/17 at 10:45 Artificial Tears (Artificial Tears) 1 drop PRN Q15MIN PRN OU DRY EYE; Start at 10:45 Triamcinolone Acetonide (Kenalog) 1 hanh PRN Q8HRS PRN TP ITCHING; Start at 10:45 Midodrine (Proamatine) 5 mg [id number] PO Last administered on 11/30/17at 05:53; Start 11/23/17 at 13:00 Multivitamins (Thera M Plus) 1 tab DAILY PO Last administered on 11/30/17at 09: 09; Start 11/23/17 at 12:00 Sulfasalazine (Azulfidine) 500 mg BID PO Last administered on 11/30/17at 09:08 ; Start 11/23/17 at 21:00 Daptomycin 310 mg/ Sodium Chloride 50 ml @ 100 mls/hr QODAY IV Last administered on 11/29/17at 08:31; Start 11/23/17 at 14:00 Ceftaroline Fosamil 200 mg/ Sodium Chloride 250 ml @ 250 mls/hr Q12HR IV Last administered on 11/30/17at 09:04; Start 11/23/17 at 13:00 Sodium Chloride 1,000 ml @ 1,000 mls/hr Q1H PRN IV hypotension; Start at 12:45; Stop 11/23/17 at 18:44; Status DC Sodium Chloride (Normal Saline Flush) 10 ml 1X PRN PRN IV AP catheter pack; Start 11/23/17 at 12:45; Stop 11/24/17 at 12:44; Status DC Sodium Chloride (Normal Saline Flush) 10 ml 1X PRN PRN IV SHOT MAN catheter pack; Start 11/23/17 at 12:45; Stop 11/24/17 at 12:44; Status DC Sodium Chloride 1,000 ml @ 400 mls/hr Q2H30M PRN IV PATENCY; Start 11/23/17 at 12:45; Stop 11/24/17 at 00:44; Status DC Info (PHARMACY MONITORING -- do not chart) 1 each PRN DAILY PRN MC SEE COMMENTS ; Start 11/23/17 at 12:45; Status UNV Info (PHARMACY MONITORING -- do not chart) 1 each PRN DAILY PRN MC SEE COMMENTS ; Start 11/23/17 at 12:45; Status Cancel Fentanyl Citrate (Fentanyl 2ml Vial) 50 mcg PRN Q2HR PRN IV SEVERE PAIN Last administered on 11/26/17at 06:09; Start 11/24/17 at 00:30 Sodium Chloride 1,000 ml @ 1,000 mls/hr Q1H PRN IV hypotension; Start at 11:31; Stop 11/26/17 at 17:30; Status DC Sodium Chloride 1,000 ml @ 400 mls/hr Q2H30M PRN IV PATENCY; Start 11/26/17 at 11:31; Stop 11/26/17 at 23:30; Status DC Info (PHARMACY MONITORING -- do not chart) 1 each PRN DAILY PRN MC SEE COMMENTS ; Start 11/26/17 at 11:45; Status UNV Sodium Chloride (Normal Saline Flush) 10 ml QSHIFT PRN IV AFTER MEDS AND BLOOD DRAWS; Start 11/26/17 at 12:45 Lidocaine HCl (Xylocaine 2% Topical 5gm Tube) 1 hanh 1X ONCE TP ; Start at 12:45; Stop 11/26/17 at 12:46; Status DC Lidocaine HCl (Viscous Lidocaine) 15 ml 1X ONCE MM ; Start 11/26/17 at 12:45; Stop 11/26/17 at 12:46; Status DC Benzocaine (Hurricaine One) 2 spray 1X ONCE MM ; Start 11/26/17 at 12:45; Stop 11/26/17 at 12:46; Status DC Midazolam HCl (Versed) 2 mg STK-MED ONCE .ROUTE ; Start 11/26/17 at 14:38; Stop 11/26/17 at 14:39; Status DC Fentanyl Citrate (Fentanyl 2ml Vial) 100 mcg STK-MED ONCE .ROUTE ; Start at 14:38; Stop 11/26/17 at 14:39; Status DC Lidocaine/ Epinephrine (LIDOCAINE 1%-EPI 1:100,000 Multi-Dose) 20 ml STK-MED ONCE .ROUTE ; Start 11/26/17 at 14:38; Stop 11/26/17 at 14:39; Status DC Heparin Sodium (Porcine) (Hep Lock Adult) 500 unit STK-MED ONCE IV ; Start at 14:45; Stop 11/26/17 at 14:46; Status DC Midazolam HCl (Versed) 2 mg 1X ONCE IV Last administered on 11/26/17at 16:01; Start 11/26/17 at 15:00; Stop 11/26/17 at 15:01; Status DC Fentanyl Citrate (Fentanyl 2ml Vial) 100 mcg 1X ONCE IV ; Start 11/26/17 at 15 :00; Stop 11/26/17 at 15:01; Status DC Lidocaine/ Epinephrine (LIDOCAINE 1%-EPI 1:100,000 Multi-Dose) 20 ml 1X ONCE IJ ; Start 11/26/17 at 15:00; Stop 11/26/17 at 15:01; Status DC Heparin Sodium (Porcine) (Hep Lock Adult) 220 unit 1X ONCE IV Last administered on 11/26/17at 15:00; Start 11/26/17 at 15:00; Stop 11/26/17 at 15 :01; Status DC Ondansetron HCl (Zofran) 4 mg PRN Q6HRS PRN IV NAUSEA/VOMITING; Start at 07:00; Stop 11/28/17 at 06:59; Status DC Fentanyl Citrate (Fentanyl 2ml Vial) 25 mcg PRN Q5MIN PRN IV MILD PAIN; Start 11/27/17 at 07:00; Stop 11/28/17 at 06:59; Status DC Fentanyl Citrate (Fentanyl 2ml Vial) 50 mcg PRN Q5MIN PRN IV MODERATE TO SEVERE PAIN; Start 11/27/17 at 07:00; Stop 11/28/17 at 06:59; Status DC Morphine Sulfate (Morphine Sulfate) 1 mg PRN Q10MIN PRN IV SEVERE PAIN; Start 11/27/17 at 07:00; Stop 11/28/17 at 06:59; Status DC Ringer's Solution 1,000 ml @ 30 mls/hr Q24H IV ; Start 11/27/17 at 07:00; Stop 11/27/17 at 18:59; Status UNV Lidocaine HCl (Xylocaine-Mpf 1% 2ml Vial) 2 ml PRN 1X PRN ID PRIOR TO IV START ; Start 11/27/17 at 07:00; Stop 11/28/17 at 06:59; Status DC Hydromorphone HCl (Dilaudid) 0.5 mg PRN Q10MIN PRN IV SEV PAIN, Second choice Last administered on 11/27/17at 08:24; Start 11/27/17 at 07:00; Stop 11/28/17 at 06:59; Status DC Prochlorperazine Edisylate (Compazine) 5 mg PACU PRN PRN IV NAUSEA 2nd CHOICE, MRX1; Start 11/27/17 at 07:00; Stop 11/28/17 at 06:59; Status DC Heparin Sodium (Porcine) (Hep Lock Adult) 110 unit 1X ONCE IV Last administered on 11/26/17at 16:00; Start 11/26/17 at 16:00; Stop 11/26/17 at 16 :20; Status DC Heparin Sodium (Porcine) (Hep Lock Adult) 150 unit PRN Q12HR PRN IV SEE COMMENTS Last administered on 11/30/17at 06:11; Start 11/26/17 at 16:15 Sodium Chloride 1,000 ml @ 1,000 mls/hr 1X ONCE IV Last administered on 11/27at 10:28; Start 11/27/17 at 09:45; Stop 11/27/17 at 10:44; Status DC Hydrocortisone Sodium Succinate (Solu-CORTEF) 100 mg 1X ONCE IV Last administered on 11/27/17at 11:07; Start 11/27/17 at 09:45; Stop 11/27/17 at 09 :46; Status DC Benzocaine (Hurricaine One) 1 spray STK-MED ONCE .ROUTE ; Start 11/27/17 at 14: 58; Stop 11/27/17 at 14:59; Status DC Lidocaine HCl (Xylocaine 2% Topical 30gm Tube) 30 hanh STK-MED ONCE TP ; Start 11/27/17 at 14:58; Stop 11/27/17 at 14:59; Status DC Lidocaine HCl (Viscous Lidocaine) 15 ml STK-MED ONCE .ROUTE ; Start 11/27/17 at 14:58; Stop 11/27/17 at 14:59; Status DC Propofol 20 ml @ As Directed STK-MED ONCE IV ; Start 11/27/17 at 16:26; Stop 11/27/17 at 16:27; Status DC Lidocaine HCl (Viscous Lidocaine) 15 ml 1X ONCE SWSW ; Start 11/27/17 at 16:45 ; Stop 11/27/17 at 16:56; Status DC Benzocaine (Hurricaine One) 2 spray 1X ONCE MM ; Start 11/27/17 at 16:45; Stop 11/27/17 at 16:56; Status DC Lidocaine HCl (Xylocaine 2% Topical 30gm Tube) 1 hanh 1X ONCE TP ; Start at 16:45; Stop 11/27/17 at 16:56; Status DC Sodium Chloride 1,000 ml @ 1,000 mls/hr Q1H PRN IV hypotension; Start at 12:24; Stop 11/28/17 at 18:23; Status DC Albumin Human 200 ml @ 200 mls/hr 1X PRN PRN IV Hypotension; Start 11/28/17 at 12:30; Stop 11/28/17 at 18:29; Status DC Acetaminophen (Tylenol) 500 mg 1X PRN PRN PO MILD PAIN / TEMP; Start 11/28/17 at 12:30; Stop 11/28/17 at 19:00; Status DC Diphenhydramine HCl (Benadryl) 25 mg 1X PRN PRN IV ITCHING; Start 11/28/17 at 12:30; Stop 11/28/17 at 19:00; Status DC Diphenhydramine HCl (Benadryl) 25 mg 1X PRN PRN IV ITCHING; Start 11/28/17 at 12:30; Stop 11/28/17 at 19:00; Status DC Sodium Chloride 1,000 ml @ 400 mls/hr Q2H30M PRN IV PATENCY; Start 11/28/17 at 12:24; Stop 11/28/17 at 19:00; Status DC Info (PHARMACY MONITORING -- do not chart) 1 each PRN DAILY PRN MC SEE COMMENTS ; Start 11/28/17 at 12:30; Status UNV Darbepoetin Justin (Aranesp) 60 mcg WEEKLYHS SQ Last administered on 11/29/17at 21:49; Start 11/29/17 at 21:00 Sodium Chloride 1,000 ml @ 1,000 mls/hr Q1H PRN IV hypotension; Start at 08:42; Stop 11/30/17 at 14:41 Sodium Chloride (Normal Saline Flush) 10 ml 1X PRN PRN IV AP catheter pack; Start 11/30/17 at 08:45; Stop 12/01/17 at 08:44 Sodium Chloride (Normal Saline Flush) 10 ml 1X PRN PRN IV SHOT MAN catheter pack; Start 11/30/17 at 08:45; Stop 12/01/17 at 08:44 Sodium Chloride 1,000 ml @ 400 mls/hr Q2H30M PRN IV PATENCY; Start 11/30/17 at 08:42; Stop 11/30/17 at 20:41 Info (PHARMACY MONITORING -- do not chart) 1 each PRN DAILY PRN MC SEE COMMENTS ; Start 11/30/17 at 08:45; Status UNV Info (PHARMACY MONITORING -- do not chart) 1 each PRN DAILY PRN MC SEE COMMENTS ; Start 11/30/17 at 08:45 Active Scripts Active Artificial Tears (Polyvinyl Alcohol) 15 Ml Drops 1 Drop OU PRN Q15MIN PRN 30 Days Acetaminophen Supp (Acetaminophen) 650 Mg Supp.rect 650 Mg KS PRN Q6HRS PRN 30 Days Hydrocodone-Apap 7.5-325 (Hydrocodone Bit/Acetaminophen) 1 Each Tablet 1 Tab PO PRN Q8HRS PRN 7 Days Reported Multivitamins (Multivitamin) 1 Each Tablet 1 Tab PO DAILY Sensipar (Cinacalcet Hcl) 30 Mg Tablet 1 Tab PO HS Azulfidine (Sulfasalazine) 500 Mg Tablet 500 Mg PO BID Lomotil Tablet (Diphenoxylate Hcl/Atropine) 1 Each Tablet 1 Tab PO PRN Q8HRS Nephro-Nabeel Tablet (Folic Acid/Vitamin B Comp W-C) 0.8 Mg Tablet 1 Tab PO DAILY Triamcinolone Acetonide 0.1% Cream (Triamcinolone Acetonide) 15 Gm Cream..g. 1 Hanh TP PRN Q8HRS apply to bilat legs topically as needed for skin care Midodrine Hcl 5 Mg Tablet 5 Mg PO TID notify PCP if BP >180/110, P <60 Vitals/I & O Vital Sign - Last 24 Hours 11/29/17 11/29/17 11/29/17 11/29/17 11:00 12:03 12:04 15:00 Temp 97.9 96.6 97.9 96.6 Pulse 63 61 63 Resp 18 20 20 B/P (MAP) 83/46 (58) 89/45 85/44 (58) Pulse Ox 99 95 98 O2 Delivery Room Air Nasal Cannula Nasal Cannula O2 Flow Rate 2.0 11/29/17 11/29/17 11/29/17 11/29/17 17:31 19:00 20:00 21:48 Temp 98.2 98.2 Pulse 63 64 Resp 20 B/P (MAP) 85/44 79/44 (56) Pulse Ox 97 O2 Delivery Nasal Cannula Nasal Cannula Nasal Cannula O2 Flow Rate 2.0 4.0 11/29/17 11/30/17 11/30/17 11/30/17 23:06 03:10 05:52 05:53 Temp 98.8 98.1 98.8 98.1 Pulse 63 67 67 Resp 20 20 B/P (MAP) 83/44 (57) 89/46 (60) 89/46 Pulse Ox 98 99 O2 Delivery Nasal Cannula Nasal Cannula Nasal Cannula O2 Flow Rate 4.0 11/30/17 11/30/17 06:52 08:00 Temp 97.0 97.0 Pulse 66 Resp 20 18 B/P (MAP) 74/42 (53) Pulse Ox 99 97 O2 Delivery Nasal Cannula Nasal Cannula O2 Flow Rate 2.0 2.0 Intake and Output 11/29/17 11/29/17 11/30/17 15:00 23:00 07:00 Intake Total 240 ml Output Total 1250 ml 550 ml 500 ml Balance -1010 ml -550 ml -500 ml Nutrition Consultation Dietary Evaluation: Recommendations by RD: Increase Calorie Intake, Protein supplementation Comments: supplements bid mvi/ renevite Expected Outcomes/Goals: to meet > 75% est nutr needs improved wound status Malnutrition Findings: Body Fat Depletion (Non Severe: Mod to Severe Weight Status: Underweight BEULAH PINK MD Nov 30, 2017 10:52
[2017-11-30 11:00] VITALS: BP 75/39
--- NOTE | 2017-11-30 12:12 | PDOC ---
Infectious Disease Note Subjective Subjective Comfortable Denies back pain Denies N/V/cramps No F/C/S/aches/SOB ROS ROS per HPI otherwise neg Vital Sign Vital Signs Vital Signs Date Time Temp Pulse Resp B/P (MAP) Pulse Ox O2 Delivery O2 Flow Rate FiO2 11/30/17 08:00 97.0 66 18 74/42 (53) 97 Nasal Cannula 2.0 97.0 Physical Exam PHYSICAL EXAM GENERAL: Propped up in bed, alert, smiling HEENT: Oral cavity dry. Dentures. no conjunc petechia LUNGS: Clear HEART: S1, S2. ABDOMEN: Soft. BS +. Ostomy, nontender EXTREMITIES: Left BKA, stump. Right lateral leg wound, small 1cm, . 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 Tunneled HDC (11/16) w/o signs of complications. Left chest PICC (11/26) clean Labs Lab Laboratory Tests Test 11/30/17 06:00 White Blood Count 13.2 x10^3/uL (4.0-11.0) Red Blood Count 3.05 x10^6/uL (3.50-5.40) Hemoglobin 8.0 g/dL (12.0-15.5) Hematocrit 25.3 % (36.0-47.0) Mean Corpuscular Volume 83 fL (79-100) Mean Corpuscular Hemoglobin 26 pg (25-35) Mean Corpuscular Hemoglobin Concent 32 g/dL (31-37) Red Cell Distribution Width 19.2 % (11.5-14.5) Platelet Count 391 x10^3/uL (140-400) Neutrophils (%) (Auto) 72 % (31-73) Lymphocytes (%) (Auto) 13 % (24-48) Monocytes (%) (Auto) 11 % (0-9) Eosinophils (%) (Auto) 3 % (0-3) Basophils (%) (Auto) 1 % (0-3) Neutrophils # (Auto) 9.5 x10^3uL (1.8-7.7) Lymphocytes # (Auto) 1.7 x10^3/uL (1.0-4.8) Monocytes # (Auto) 1.5 x10^3/uL (0.0-1.1) Eosinophils # (Auto) 0.3 x10^3/uL (0.0-0.7) Basophils # (Auto) 0.2 x10^3/uL (0.0-0.2) Sodium Level 145 mmol/L (136-145) Potassium Level 3.6 mmol/L (3.5-5.1) Chloride Level 106 mmol/L (98-107) Carbon Dioxide Level 28 mmol/L (21-32) Anion Gap 11 (6-14) Blood Urea Nitrogen 19 mg/dL (7-20) Creatinine 4.0 mg/dL (0.6-1.0) Estimated GFR (Cockcroft-Gault) 13.2 Glucose Level 90 mg/dL (70-99) Calcium Level 9.5 mg/dL (8.5-10.1) IMPRESSION: 1. Severe patchy bony demineralization. 2. No acute bony abnormality is detected. Micro Blood cultures 11/22 & NGTD Lower leg ANAEROBIC RES 1 PENDING AEROBIC CULT PENDING GRAM STAIN RES 1 Final No white blood cells seen. GRAM STAIN RES 2 Final No organisms seen Objective Assessment Sepsis with reported MRSA from 11/21 POA ([facility]) while on Vanc for MRSA bacteremia from previous admission -Repeat BC from 11/22 & NGTD. PHILIP 11/27 neg Hypotension - resolved Right basilar atelectasis versus infiltrate H/O High grade MRSA bacteremia previous admission from 10/31. source infected HD cath,s/p removal. Discharged on vanc -Repeat BC on 11/02, 11/04 & 11/08 positive. BC 11/13 negative -ECHO without evidence of veg H/O infected right HDC cath s/p removal on 11/01 + MRSA. -s/p interval placement of a temp [facility]/HDC on 11/01; removed. -s/p Tunneled HDC placement on 11/16. Leukocytosis - better Resp failure w/ pleural effusion s/p thoracentesis 11/07 with 1/1 liter removed pH 7.51. 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 C. diff neg 11/22 Plan Plan of Care Cont Daptomycin and ceftaroline - has clearly improved with change in abx Need sensitivities/confirmation of outpatient MRSA that was reported from . 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 The chart was reviewed. The case was discussed. Agree with the plan of care. HARSH IVAN APRN Nov 30, 2017 12:11 DOMONIQUE HARDEN MD Nov 30, 2017 12:13
[2017-11-30] MEDS ORDERED: MIDO5TAB PO (14:33)
--- NOTE | 2017-11-30 14:35 | DISCH ---
DISCHARGE DISCHARGE INFORMATION: DISCHARGE DATE: Dec 01, 2017 FINAL DIAGNOSIS Problems Medical Problems: (1) End stage renal disease Status: Acute (2) Fever Status: Acute (3) Leukocytosis Status: Acute CONDITION ON DISCHARGE: Stable CODE STATUS: Code Status: DNR/DNI PRISON: SNF STAY <30 DAYS: Yes POST DISCHARGE ORDERS: ACTIVITY ORDERS: Activity as tolerated WEIGHT BEARING STATUS: Full weight bearing, As tolerated BATHING ORDERS: Shower-keep dressing dry DIET AFTER DISCHARGE: Renal WOUND/INCISION CARE: Ice to area for comfort, Change dressing OTHER WOUND INSTRUCTIONS: rt leg small wound care OTHER ORDERS: cont iv abx as prescribed by ID. CHECKS AFTER DISCHARGE: CHECKS AFTER DISCHARGE: Check blood press - daily, Check blood sugar, ac/hs, Check your Temp as needed, Weigh Yourself Daily COMMENTS: EJ\chest FOLLOW-UP: PHYSICIAN FOLLOW-UP: dr. Wright for PAD in [address] jose l CAREY in 2 weeks. LAB ORDERS FOR FOLLOW-UP: Vancomycin trough prior to every other dosing TREATMENT/EQUIPMENT ORDERS: ADAPTIVE EQUIPMENT NEEDED: None RESPIRATORY EQUIPMENT NEEDED: Oxygen Physical Therapy For: Evalulation/Treatment Occupational Therapy For: Evaluation/Treatment DISCHARGE MEDICATIONS: Home Meds Active Scripts Midodrine Hcl (MIDODRINE HCL) 5 Mg Tablet, 10 MG PO [id number], #30 TAB Prov:BEULAH PINK MD 11/30/17 Polyvinyl Alcohol (ARTIFICIAL TEARS) 15 Ml Drops, 1 DROP OU PRN Q15MIN PRN for DRY EYE for 30 Days, #90 DROP Prov:JOJO GRIFFIN MD 11/16/17 Acetaminophen (ACETAMINOPHEN SUPP) 650 Mg Supp.rect, 650 MG GA PRN Q6HRS PRN for MILD PAIN / TEMP for 30 Days, #120 SUPP.RECT Prov:JOJO GRIFFIN MD 11/16/17 Hydrocodone Bit/Acetaminophen (HYDROCODONE-APAP 7.5-325 ) 1 Each Tablet, 1 TAB PO PRN Q8HRS PRN for PAIN for 7 Days, #20 TAB 0 Refills Prov:JOJO GRIFFIN MD 11/16/17 Reported Medications Multivitamin (MULTIVITAMINS) 1 Each Tablet, 1 TAB PO DAILY, #90 TAB 3 Refills 11/23/17 Cinacalcet Hcl (SENSIPAR) 30 Mg Tablet, 1 TAB PO HS, #30 TAB 11 Refills 9/22/18 Sulfasalazine (AZULFIDINE) 500 Mg Tablet, 500 MG PO BID, TAB 11/03/17 Diphenoxylate Hcl/Atropine (LOMOTIL TABLET) 1 Each Tablet, 1 TAB PO PRN Q8HRS, # 30 TAB 11/03/17 Folic Acid/Vitamin B Comp W-C (NEPHRO-KAREN TABLET) 0.8 Mg Tablet, 1 TAB PO DAILY , #30 TAB 5 Refills 10/31/17 Triamcinolone Acetonide (TRIAMCINOLONE ACETONIDE 0.1% CREAM) 15 Gm Cream..g., 1 DEO TP PRN Q8HRS, TUBE apply to bilat legs topically as needed for skin care 10/31/17 Discontinued Reported Medications Midodrine Hcl (MIDODRINE HCL) 5 Mg Tablet, 5 MG PO TID, TAB notify PCP if BP >180/110, P <60 10/31/17 BEULAH PINK MD Nov 30, 2017 14:35
[2017-11-30 15:00] VITALS: BP 78/41
--- NOTE | 2017-11-30 15:48 | PDOC ---
SUBJECTIVE ROS Alert, no complaints OBJECTIVE Vital Signs Vital Signs Date Time Temp Pulse Resp B/P (MAP) Pulse Ox O2 Delivery O2 Flow Rate FiO2 11/30/17 13:30 69 75/39 11/30/17 11:00 97.9 18 98 Nasal Cannula 2.0 97.9 I & 0 Intake and Output 11/30/17 07:00 Intake Total 240 ml Output Total 2300 ml Balance -2060 ml Intake Oral 240 ml Output Urine Total 100 ml Stool Total 2200 ml PHYSICAL EXAM Physical Exam GENERAL: NAD - in HD HEENT: Unremarkable LUNGS: Clear HEART: S1, S2. ABDOMEN: Soft. BS +. Ostomy, nontender EXTREMITIES: Left BKA, stump. Right lateral leg wound Tunneled HDC ROOF BOLTER: AxO x 3 SKIN: No rash. DIAGNOSIS/ASSESSMENT Assessment & Plan ESRD- On HD MWF Dialysis today as Ordered DW [employer] Sepsis MRSA - while on Vanc for MRSA bacteremia from previous admission -Repeat BC from 11/22 & NGTD s/p TDC removal in Oct 2017 Resp failure w/ pleural effusion - s/p thoracentesis COMMENT/RELEVANT DATA Meds Current Medications Medications (Trade) Dose Ordered Sig/Yovanny Start Time Stop Time Status Last Admin Dose Admin Acetaminophen (Tylenol Supp) 650 mg PRN Q6HRS PRN 11/23/17 10:45 Acetaminophen (Tylenol) 500 mg 1X PRN PRN 11/28/17 12:30 11/28/17 19:00 DC Acetaminophen/ Hydrocodone Bitart (Lortab 7.5/325) 1 tab PRN Q8HRS PRN 11/23/17 10:45 11/30/17 05:52 1 TAB Albumin Human 200 ml @ 200 mls/hr 1X PRN PRN 11/28/17 12:30 11/28/17 18:29 DC Artificial Tears (Artificial Tears) 1 drop PRN Q15MIN PRN 11/23/17 10:45 Benzocaine (Hurricaine One) 2 spray 1X ONCE 11/27/17 16:45 11/27/17 16:56 DC Ceftaroline Fosamil 200 mg/ Sodium Chloride 250 ml @ 250 mls/hr Q12HR 11/23/17 13:00 11/30/17 09:04 250 MLS/HR Cinacalcet (Sensipar) 30 mg HS 11/23/17 21:00 11/29/17 21:48 30 MG Daptomycin 310 mg/ Sodium Chloride 50 ml @ 100 mls/hr QODAY 11/23/17 14:00 11/29/17 08:31 100 MLS/HR Darbepoetin Justin (Aranesp) 60 mcg WEEKLYHS 11/29/17 21:00 11/29/17 21:49 60 MCG Diphenhydramine HCl (Benadryl) 25 mg 1X PRN PRN 11/28/17 12:30 11/28/17 19:00 DC Diphenoxylate HCl/ Atropine (Lomotil) 1 tab PRN Q8HRS PRN 11/23/17 10:45 11/30/17 09:54 1 TAB Fentanyl Citrate (Fentanyl 2ml Vial) 50 mcg PRN Q5MIN PRN 11/27/17 07:00 11/28/17 06:59 DC Heparin Sodium (Porcine) (Hep Lock Adult) 150 unit PRN Q12HR PRN 11/26/17 16:15 11/30/17 11:07 150 UNIT Hydrocortisone Sodium Succinate (Solu-CORTEF) 100 mg 1X ONCE 11/27/17 09:45 11/27/17 09:46 DC 11/27/17 11:07 100 MG Hydromorphone HCl (Dilaudid) 0.5 mg PRN Q10MIN PRN 11/27/17 07:00 11/28/17 06:59 DC 11/27/17 08:24 0.5 MG Info (PHARMACY MONITORING -- do not chart) 1 each PRN DAILY PRN 11/30/17 08:45 Levofloxacin/ Dextrose 100 ml @ 100 mls/hr Q48H 11/24/17 21:00 11/26/17 11:36 DC 11/25/17 00:00 100 MLS/HR Lidocaine HCl (Viscous Lidocaine) 15 ml 1X ONCE 11/27/17 16:45 11/27/17 16:56 DC Lidocaine HCl (Xylocaine 2% Topical 30gm Tube) 1 tj 1X ONCE 11/27/17 16:45 11/27/17 16:56 DC Lidocaine HCl (Xylocaine 2% Topical 5gm Tube) 1 tj 1X ONCE 11/26/17 12:45 11/26/17 12:46 DC Lidocaine HCl (Xylocaine-Mpf 1% 2ml Vial) 2 ml PRN 1X PRN 10/16/18 07:00 11/28/17 06:59 DC Lidocaine/ Epinephrine (LIDOCAINE 1%-EPI 1:100,000 Multi-Dose) 20 ml 1X ONCE 11/26/17 15:00 11/26/17 15:01 DC Midazolam HCl (Versed) 2 mg 1X ONCE 11/26/17 15:00 11/26/17 15:01 DC 11/26/17 16:01 1 MG Midodrine (Proamatine) 10 mg [id number] 11/30/17 13:00 11/30/17 13:30 10 MG Morphine Sulfate (Morphine Sulfate) 1 mg PRN Q10MIN PRN 11/27/17 07:00 11/28/17 06:59 DC Multivitamins (Thera M Plus) 1 tab DAILY 11/23/17 12:00 11/30/17 09:09 1 TAB Ondansetron HCl (Zofran) 4 mg PRN Q6HRS PRN 11/27/17 07:00 11/28/17 06:59 DC Piperacillin Sod/ Tazobactam Sod 2.25 gm/Sodium Chloride 50 ml @ 100 mls/hr Q8HRS 11/23/17 06:00 11/23/17 11:56 DC 11/23/17 04:58 100 MLS/HR Piperacillin Sod/ Tazobactam Sod 4.5 gm/Sodium Chloride 100 ml @ 200 mls/hr Q6HRS 11/23/17 00:00 11/23/17 00:29 DC 11/22/17 23:16 200 MLS/HR Potassium Chloride (Klor-Con) 40 meq 1X ONCE 11/23/17 09:00 11/23/17 09:03 DC 11/23/17 09:04 40 MEQ Prochlorperazine Edisylate (Compazine) 5 mg PACU PRN PRN 11/27/17 07:00 11/28/17 06:59 DC Propofol 20 ml @ As Directed STK-MED ONCE 11/27/17 16:26 11/27/17 16:27 DC Ringer's Solution 1,000 ml @ 30 mls/hr Q24H 11/27/17 07:00 11/27/17 18:59 UNV Sodium Chloride 1,000 ml @ 400 mls/hr Q2H30M PRN 11/30/17 08:42 11/30/17 20:41 Sodium Chloride (Normal Saline Flush) 10 ml 1X PRN PRN 11/30/17 08:45 12/01/17 08:44 Sulfasalazine (Azulfidine) 500 mg BID 11/23/17 21:00 11/30/17 09:08 500 MG Triamcinolone Acetonide (Kenalog) 1 tj PRN Q8HRS PRN 11/23/17 10:45 Vitamin B Complex/ Vitamin C (Yaneth-Nabeel) 1 tab DAILY 11/23/17 11:00 11/30/17 09:08 1 TAB Lab Laboratory Tests Test 11/30/17 06:00 White Blood Count 13.2 x10^3/uL (4.0-11.0) Red Blood Count 3.05 x10^6/uL (3.50-5.40) Hemoglobin 8.0 g/dL (12.0-15.5) Hematocrit 25.3 % (36.0-47.0) Mean Corpuscular Volume 83 fL (79-100) Mean Corpuscular Hemoglobin 26 pg (25-35) Mean Corpuscular Hemoglobin Concent 32 g/dL (31-37) Red Cell Distribution Width 19.2 % (11.5-14.5) Platelet Count 391 x10^3/uL (140-400) Neutrophils (%) (Auto) 72 % (31-73) Lymphocytes (%) (Auto) 13 % (24-48) Monocytes (%) (Auto) 11 % (0-9) Eosinophils (%) (Auto) 3 % (0-3) Basophils (%) (Auto) 1 % (0-3) Neutrophils # (Auto) 9.5 x10^3uL (1.8-7.7) Lymphocytes # (Auto) 1.7 x10^3/uL (1.0-4.8) Monocytes # (Auto) 1.5 x10^3/uL (0.0-1.1) Eosinophils # (Auto) 0.3 x10^3/uL (0.0-0.7) Basophils # (Auto) 0.2 x10^3/uL (0.0-0.2) Sodium Level 145 mmol/L (136-145) Potassium Level 3.6 mmol/L (3.5-5.1) Chloride Level 106 mmol/L (98-107) Carbon Dioxide Level 28 mmol/L (21-32) Anion Gap 11 (6-14) Blood Urea Nitrogen 19 mg/dL (7-20) Creatinine 4.0 mg/dL (0.6-1.0) Estimated GFR (Cockcroft-Gault) 13.2 Glucose Level 90 mg/dL (70-99) Calcium Level 9.5 mg/dL (8.5-10.1) Results All relevant outside records, renal labs, imaging studies, telemetry/EKG's were reviewed. YVONNE ZAVALA MD Nov 30, 2017 15:48
[2017-11-30] MEDS ORDERED: ALBUMIN HUMAN 25% 100 ML IV ONE ×2 (18:30)
[2017-11-30] MEDS: CINACALCET HCL 30 MG TABLET PO SCH (21:59)
[2017-11-30 23:00] VITALS: BP 78/46
[2017-12-01 03:06] VITALS: BP 82/41
[2017-12-01] MEDS: MIDODRINE 5 MG TABLET PO SCH (06:16)
[2017-12-01] MEDS: HYDROcodone/APAP 7.5/325MG 1 TAB TABLET PO PRN (06:16)
[2017-12-01] MEDS: HEPARIN PF 500 UNIT/5 ML DISP.SYRIN. IV PRN ×2 (06:29→12:20)
[2017-12-01 07:00] VITALS: BP 80/38
[2017-12-01 07:07] LABS: CALCIUM 9.8 mg/dL (8.5-10.1); CREATININE 2.4 mg/dL (0.6-1.0); GFR 23.8; POTASSIUM 3.7 mmol/L (3.5-5.1)
[2017-12-01 07:08] LABS: BASO # 0.1 x10^3/uL (0.0-0.2); BASO % 1 % (0-3); EOS # 0.5 x10^3/uL (0.0-0.7); EOS % 4 % (0-3); HEMATOCRIT 23.9 % (36.0-47.0); HEMOGLOBIN 7.6 g/dL (12.0-15.5); LYMPH # 1.7 x10^3/uL (1.0-4.8); LYMPH % 14 % (24-48); MEAN CORPUSCULAR HEMOGLOBIN 26 pg (25-35); MEAN CORPUSCULAR HGB CONC 32 g/dL (31-37); MEAN CORPUSCULAR VOLUME 82 fL (79-100); MONO # 1.3 x10^3/uL (0.0-1.1); MONO % 10 % (0-9); NEUT # 9.3 x10^3uL (1.8-7.7); NEUT % 72 % (31-73); PLATELET COUNT 335 x10^3/uL (140-400); RED BLOOD COUNT 2.93 x10^6/uL (3.50-5.40); RED CELL DISTRIBUTION WIDTH 19.3 % (11.5-14.5); WHITE BLOOD COUNT 12.9 x10^3/uL (4.0-11.0)
[2017-12-01] MEDS: NORMAL SALINE IV SCH ×2 (09:00→09:31)
[2017-12-01] MEDS: CEFTAROLINE FOSAMIL IV SCH (09:00)
[2017-12-01] MEDS: FOLIC/VIT B COMP W-C (RENAL) TABLET. PO SCH (09:27)
[2017-12-01] MEDS: sulfaSALAzine 500 MG TABLET PO SCH (09:27)
[2017-12-01] MEDS: MULTIVITAMIN with MINERAL TABLET. PO SCH (09:28)
[2017-12-01] MEDS: DAPTOMYCIN IV SCH (09:31)
[2017-12-01 11:00] VITALS: BP 76/35
--- NOTE | 2017-12-01 11:23 | PDOC ---
PULMONARY PROGRESS NOTES Subjective no soa Vitals Vital Signs Date Time Temp Pulse Resp B/P (MAP) Pulse Ox O2 Delivery O2 Flow Rate FiO2 12/01/17 08:15 Nasal Cannula 1.0 12/01/17 07:30 99 12/01/17 07:00 97.7 62 16 80/38 (52) 97.7 ROS: No Nausea General: Alert, No acute distress HEENT: Other (nc at perrl ) Lungs: Clear Cardiovascular: S1, S2 Abdomen: Soft, Non-tender Neuro Exam: Alert Extremities: Other (l bka) Skin: Warm Labs Laboratory Tests Test 11/30/17 06:00 12/01/17 06:00 White Blood Count 13.2 x10^3/uL (4.0-11.0) 12.9 x10^3/uL (4.0-11.0) Red Blood Count 3.05 x10^6/uL (3.50-5.40) 2.93 x10^6/uL (3.50-5.40) Hemoglobin 8.0 g/dL (12.0-15.5) 7.6 g/dL (12.0-15.5) Hematocrit 25.3 % (36.0-47.0) 23.9 % (36.0-47.0) Mean Corpuscular Volume 83 fL (79-100) 82 fL (79-100) Mean Corpuscular Hemoglobin 26 pg (25-35) 26 pg (25-35) Mean Corpuscular Hemoglobin Concent 32 g/dL (31-37) 32 g/dL (31-37) Red Cell Distribution Width 19.2 % (11.5-14.5) 19.3 % (11.5-14.5) Platelet Count 391 x10^3/uL (140-400) 335 x10^3/uL (140-400) Neutrophils (%) (Auto) 72 % (31-73) 72 % (31-73) Lymphocytes (%) (Auto) 13 % (24-48) 14 % (24-48) Monocytes (%) (Auto) 11 % (0-9) 10 % (0-9) Eosinophils (%) (Auto) 3 % (0-3) 4 % (0-3) Basophils (%) (Auto) 1 % (0-3) 1 % (0-3) Neutrophils # (Auto) 9.5 x10^3uL (1.8-7.7) 9.3 x10^3uL (1.8-7.7) Lymphocytes # (Auto) 1.7 x10^3/uL (1.0-4.8) 1.7 x10^3/uL (1.0-4.8) Monocytes # (Auto) 1.5 x10^3/uL (0.0-1.1) 1.3 x10^3/uL (0.0-1.1) Eosinophils # (Auto) 0.3 x10^3/uL (0.0-0.7) 0.5 x10^3/uL (0.0-0.7) Basophils # (Auto) 0.2 x10^3/uL (0.0-0.2) 0.1 x10^3/uL (0.0-0.2) Sodium Level 145 mmol/L (136-145) 144 mmol/L (136-145) Potassium Level 3.6 mmol/L (3.5-5.1) 3.7 mmol/L (3.5-5.1) Chloride Level 106 mmol/L (98-107) 104 mmol/L (98-107) Carbon Dioxide Level 28 mmol/L (21-32) 31 mmol/L (21-32) Anion Gap 11 (6-14) 9 (6-14) Blood Urea Nitrogen 19 mg/dL (7-20) 6 mg/dL (7-20) Creatinine 4.0 mg/dL (0.6-1.0) 2.4 mg/dL (0.6-1.0) Estimated GFR (Cockcroft-Gault) 13.2 23.8 Glucose Level 90 mg/dL (70-99) 98 mg/dL (70-99) Calcium Level 9.5 mg/dL (8.5-10.1) 9.8 mg/dL (8.5-10.1) Laboratory Tests Test 12/01/17 06:00 White Blood Count 12.9 x10^3/uL (4.0-11.0) Red Blood Count 2.93 x10^6/uL (3.50-5.40) Hemoglobin 7.6 g/dL (12.0-15.5) Hematocrit 23.9 % (36.0-47.0) Mean Corpuscular Volume 82 fL (79-100) Mean Corpuscular Hemoglobin 26 pg (25-35) Mean Corpuscular Hemoglobin Concent 32 g/dL (31-37) Red Cell Distribution Width 19.3 % (11.5-14.5) Platelet Count 335 x10^3/uL (140-400) Neutrophils (%) (Auto) 72 % (31-73) Lymphocytes (%) (Auto) 14 % (24-48) Monocytes (%) (Auto) 10 % (0-9) Eosinophils (%) (Auto) 4 % (0-3) Basophils (%) (Auto) 1 % (0-3) Neutrophils # (Auto) 9.3 x10^3uL (1.8-7.7) Lymphocytes # (Auto) 1.7 x10^3/uL (1.0-4.8) Monocytes # (Auto) 1.3 x10^3/uL (0.0-1.1) Eosinophils # (Auto) 0.5 x10^3/uL (0.0-0.7) Basophils # (Auto) 0.1 x10^3/uL (0.0-0.2) Sodium Level 144 mmol/L (136-145) Potassium Level 3.7 mmol/L (3.5-5.1) Chloride Level 104 mmol/L (98-107) Carbon Dioxide Level 31 mmol/L (21-32) Anion Gap 9 (6-14) Blood Urea Nitrogen 6 mg/dL (7-20) Creatinine 2.4 mg/dL (0.6-1.0) Estimated GFR (Cockcroft-Gault) 23.8 Glucose Level 98 mg/dL (70-99) Calcium Level 9.8 mg/dL (8.5-10.1) Medications Active Scripts Medications Dose Route/Sig Max Daily Dose Days Date Category Dose Instructions Multivitamins (Multivitamin) 1 Each Tablet 1 Tab PO DAILY 11/23/17 Reported Artificial Tears (Polyvinyl Alcohol) 15 Ml Drops 1 Drop OU PRN Q15MIN PRN 30 11/16/17 Rx Acetaminophen Supp (Acetaminophen) 650 Mg Supp.rect 650 Mg IA PRN Q6HRS PRN 30 11/16/17 Rx Hydrocodone-Apap 7.5-325 (Hydrocodone Bit/Acetaminophen) 1 Each Tablet 1 Tab PO PRN Q8HRS PRN 7 11/16/17 Rx Sensipar (Cinacalcet Hcl) 30 Mg Tablet 1 Tab PO HS 11/03/17 Reported Azulfidine (Sulfasalazine) 500 Mg Tablet 500 Mg PO BID 11/03/17 Reported Lomotil Tablet (Diphenoxylate Hcl/Atropine) 1 Each Tablet 1 Tab PO PRN Q8HRS 11/03/17 Reported Nephro-Nabeel Tablet (Folic Acid/Vitamin B Comp W-C) 0.8 Mg Tablet 1 Tab PO DAILY 10/31/17 Reported Triamcinolone Acetonide 0.1% Cream (Triamcinolone Acetonide) 15 Gm Cream..g. 1 Hanh TP PRN Q8HRS 10/31/17 Reported apply to bilat legs topically as needed for skin care Midodrine Hcl 5 Mg Tablet 5 Mg PO TID 10/31/17 Reported notify PCP if BP >180/110, P <60 Impression . IMPRESSION: 1. Abnormal x-ray revealing small right-sided effusion. The patient is status post bilateral thoracentesis back on November 07. Cultures are negative transudative effusion. 2. History of methicillin-resistant Staphylococcus aureus bacteremia, previous admission from 10/31/2017, the source was hemodialyzed catheter. 3. Atrial fibrillation. 4. End-stage renal disease. 5. Anemia. 6. Chronic lateral right leg nonhealing wound. 7. Hypotension, improved Plan . PLAN: 1. Pulmonary status appears to be compensated. No signs of pulmonary infection. will monitor closely. 2. cont abx per id 3. Hemodialysis per Nephrology. 4. s/p fluid bolus/ BP better 5. Palliative care spoke with patient. DNR/DNI. not much to add . will see CHERI Georges MD Dec 01, 2017 11:23
--- NOTE | 2017-12-01 13:15 | PDOC3 ---
Discharge Summary IPC Date of Admission: Nov 22, 2017 Discharge Date: Dec 01, 2017 Admitting Diagnosis Sepsis MRSA from 11/21 POA ([facility]) while on Vanc for MRSA bacteremia from previous admission Hypotension on midodrine Right basilar atelectasis versus infiltrate H/O High grade MRSA bacteremia previous admission from 10/31. source infected HD cath,s/p removal. Discharged on vanc -Repeat BC on 11/02, 11/04 & 11/08 positive. BC 11/13 negative -ECHO without evidence of veg H/O infected right HDC cath s/p removal on 11/01 + MRSA. -s/p interval placement of a temp [facility]/HDC on 11/01; removed. -s/p Tunneled HDC placement on 11/16. 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 C. diff neg 11/22 rt toes pain with distal rt leg PAD, vascular sx pending as outpt Final Diagnosis CONSULTS id renal vascular pulm Brief Hospital Course Ms. Holm is a 77 old F, with HD catheter for ESRD, was sent from rehab for bacteremia. pt was dced here recently to rehab for bacteremia, HD cath changed. pt has left BKA, bl arm and bl groin AVF all failed. pt was treated with iv abx for MRSA bacteremia, however, HD center did a bcx as outpt which is +. pt was readmitted, bcx neg this time. given possible + bcx from HD center while in abx, ID recommend cont IV abx for 6 weeks for MRSA. pt feels good now, has c/o rt toes pain even without move, + tenderness. US showed PAD. the lateral aspect rt leg small wound is stable, VASCular consulted , recommend sx as outpt, pt wants sx. dc to rehab, cont iv abx for total 6 weeks for h/o MRSA bacteremia, left chest PICC line. dc time 35min. GENERAL: Propped up in bed, alert, NAD. looks well HEENT: Oral cavity dry. Dentures. no conjunc petechia LUNGS: Clear HEART: S1, S2. ABDOMEN: Soft. BS +. Ostomy, nontender EXTREMITIES: Left BKA, stump. Right lateral leg wound, small 1cm, . looks clean , little sanguneous discharge, weak pulse [employer]: Arouses easily to name, responds appropriately and follow commands SKIN: No generalized rash. Tunneled HDC (11/16) w/o signs of complications. Left chest PICC - clean Patient History: Patient reports no known family medical history. Disposition home CONDITION AT DISCHARGE: Improved, Stable Scheduled Cinacalcet Hcl (Sensipar), 1 TAB PO HS, (Reported) Diphenoxylate Hcl/Atropine (Lomotil Tablet), 1 TAB PO PRN Q8HRS, (Reported) Folic Acid/Vitamin B Comp W-C (Nephro-Nabeel Tablet), 1 TAB PO DAILY, (Reported) Midodrine Hcl (Midodrine Hcl), 10 MG PO [id number] Multivitamin (Multivitamins), 1 TAB PO DAILY, (Reported) Sulfasalazine (Azulfidine), 500 MG PO BID, (Reported) Triamcinolone Acetonide (Triamcinolone Acetonide 0.1% Cream), 1 DEO TP PRN Q8HRS , (Reported) Scheduled PRN Acetaminophen (Acetaminophen Supp), 650 MG MN PRN Q6HRS PRN for MILD PAIN / TEMP Hydrocodone Bit/Acetaminophen (Hydrocodone-Apap 7.5-325 ), 1 TAB PO PRN Q8HRS PRN for PAIN Polyvinyl Alcohol (Artificial Tears), 1 DROP OU PRN Q15MIN PRN for DRY EYE Discontinued Medications Midodrine Hcl (Midodrine Hcl), 5 MG PO TID, (Reported) BEULAH PINK MD Dec 01, 2017 13:15
== END 2017-12-01 12:25 | DRG 871 ==
LOC: ER 19:45 → 5 NORTH 21:20
PROVIDERS: ADMIT Family Medicine; ATTEND Family Medicine
PROC: 30233N1 Transfusion of Nonautologous Red Blood Cells into Peripheral Vein, Percutaneous Approach (ICD-10-PCS; principal; 2017-11-22)
PROC: 0JH63XZ Insertion of Tunneled Vascular Access Device into Chest Subcutaneous Tissue and Fascia, Percutaneous Approach (ICD-10-PCS; 2017-11-22)
PROC: 02H633Z Insertion of Infusion Device into Right Atrium, Percutaneous Approach (ICD-10-PCS; 2017-11-22)
PROC: B244ZZZ Ultrasonography of Right Heart (ICD-10-PCS; 2017-11-22)
PROC: 5A1D70Z Performance of Urinary Filtration, Intermittent, Less than 6 Hours Per Day (ICD-10-PCS; 2017-11-23)
PROC: 5A1D70Z Performance of Urinary Filtration, Intermittent, Less than 6 Hours Per Day (ICD-10-PCS; 2017-11-26)
PROC: 5A1D70Z Performance of Urinary Filtration, Intermittent, Less than 6 Hours Per Day (ICD-10-PCS; 2017-11-28)
PROC: 5A1D70Z Performance of Urinary Filtration, Intermittent, Less than 6 Hours Per Day (ICD-10-PCS; 2017-11-30)
DX: A41.02 Sepsis due to Methicillin resistant Staphylococcus aureus (principal); G93.41 Metabolic encephalopathy; J18.9 Pneumonia, unspecified organism; N18.6 End stage renal disease; I13.11 Hypertensive heart and chronic kidney disease without heart failure, with stage 5 chronic kidney disease, or end stage renal disease; J90 Pleural effusion, not elsewhere classified; J98.11 Atelectasis; K50.90 Crohn's disease, unspecified, without complications; L97.219 Non-pressure chronic ulcer of right calf with unspecified severity; N17.9 Acute kidney failure, unspecified; D64.9 Anemia, unspecified; E11.22 Type 2 diabetes mellitus with diabetic chronic kidney disease; E11.41 Type 2 diabetes mellitus with diabetic mononeuropathy; E11.51 Type 2 diabetes mellitus with diabetic peripheral angiopathy without gangrene; E11.621 Type 2 diabetes mellitus with foot ulcer; E11.622 Type 2 diabetes mellitus with other skin ulcer; E78.00 Pure hypercholesterolemia, unspecified; E78.5 Hyperlipidemia, unspecified; E87.6 Hypokalemia; G57.90 Unspecified mononeuropathy of unspecified lower limb; I25.10 Atherosclerotic heart disease of native coronary artery without angina pectoris; I48.2 Chronic atrial fibrillation; F41.9 Anxiety disorder, unspecified; E21.3 Hyperparathyroidism, unspecified; I95.89 Other hypotension; L97.519 Non-pressure chronic ulcer of other part of right foot with unspecified severity; R13.10 Dysphagia, unspecified; Z51.5 Encounter for palliative care; Z79.2 Long term (current) use of antibiotics; Z86.14 Personal history of Methicillin resistant Staphylococcus aureus infection; Z87.01 Personal history of pneumonia (recurrent); Z87.891 Personal history of nicotine dependence; Z89.512 Acquired absence of left leg below knee; Z90.49 Acquired absence of other specified parts of digestive tract; Z99.2 Dependence on renal dialysis; Z88.8 Allergy status to other drugs, medicaments and biological substances; Z79.899 Other long term (current) drug therapy
CPT/HCPCS: 36415; 36558; 70450; 71045; 73620; 76937; 77001; 80048; 80053; 83605; 83735; 83880; 84145; 84484; 85007; 85025; 85610; 85730; 86850; 86870; 86880; 86900; 86901; 86902; 86922; 87040; 87071; 87075; 87324; 87641; 93005; 93312; 93320; 93325; 93926; 96365; C1751; C1892; J0712; J0878; J0881; J1170; J1720; J1956; J2250; J2543; J2704; J3010; J7030; J7040; J7050; P9016; P9046; 92526; 92610; 97110; 97530; 97535; 99285-25

== ENCOUNTER 2017-12-02 22:53 | Inpatient (IN) | payer MEDICARE ==
[~2017-12-02] VITALS: Ht 157.5 cm; Wt 41.3 kg
[~2017-12-02 22:53] MED LIST changes: +MULT1TAB52 PO
[2017-12-02] MEDS ORDERED: IV NORMAL SALINE 500ML BAG 500 ML IV ONE (23:15)
[2017-12-02 23:17] LABS: BASO # 0.1 x10^3/uL (0.0-0.2); BASO % 1 % (0-3); EOS # 0.7 x10^3/uL (0.0-0.7); EOS % 6 % (0-3); HEMOGLOBIN 7.9 g/dL (12.0-15.5); LYMPH # 2.1 x10^3/uL (1.0-4.8); LYMPH % 16 % (24-48); MEAN CORPUSCULAR HEMOGLOBIN 26 pg (25-35); MEAN CORPUSCULAR HGB CONC 32 g/dL (31-37); MEAN CORPUSCULAR VOLUME 83 fL (79-100); MONO # 1.5 x10^3/uL (0.0-1.1); MONO % 12 % (0-9); NEUT # 8.5 x10^3uL (1.8-7.7); NEUT % 66 % (31-73); PLATELET COUNT 333 x10^3/uL (140-400); RED BLOOD COUNT 3.02 x10^6/uL (3.50-5.40); RED CELL DISTRIBUTION WIDTH 19.5 % (11.5-14.5); WHITE BLOOD COUNT 12.9 x10^3/uL (4.0-11.0)
[2017-12-02 23:24] LABS: CALCIUM 9.7 mg/dL (8.5-10.1); CREATININE 5.4 mg/dL (0.6-1.0); GFR 9.3; POTASSIUM 3.4 mmol/L (3.5-5.1)
[2017-12-02] MEDS ORDERED: MORPHINE SULFATE 4 MG/ML VIAL. IV PRN (23:30)
[2017-12-02] MEDS ORDERED: NOREPINEPHRIN 8MG/250ML PREMIX 250 ML IV ONE (23:30)
[2017-12-02] MEDS ORDERED: ONDANSETRON PF 4 MG/2 ML VIAL. IV PRN (23:30)
[2017-12-02] MEDS ORDERED: ACETAMINOPHEN 325 MG TABLET. PO PRN (23:30)
--- NOTE | 2017-12-02 23:33 | PHYS DOC ---
Past Medical History Past Medical History: Renal Disease, UTI Additional Past Medical Histor: CROHNS ,PVD Past Surgical History: Other Additional Past Surgical Histo: LEFT LEG AMPUTATION BELOW KNEE Alcohol Use: None Drug Use: None Adult General Chief Complaint Chief Complaint: LOWER EXT PAIN [facility] HPI Patient is a 77 year old female who presents with hypotension, diarrhea. The patient is a 77-year-old female who was just discharged from this hospital yesterday. She was discharged to an acute nursing facility. The patient was diagnosed with bacteremia and pneumonia during her hospitalization. She was discharged home on renal dose antibiotics. Today, group home staff reported that the patient was noted to have hypotension with blood pressures in 60s. They also noted that she had over 1 L of loose stool out from her ostomy today. The patient was also complaining of severe right lower foot pain which is a chronic complaint. The group home only had orders for by mouth hydrocodone which they had given the patient but this did not relieve the patient's pain. Given all of these problems, the patient was referred back to the emergency department for evaluation. On arrival to the emergency department, the patient does have a systolic blood pressure 57. With that, she is awake and alert. She is mentating at baseline. She denies any complaints other than simply "doesn't feel very good.". Currently , she does not complain of right lower extremity pain. Review of Systems Review of Systems Constitutional: Denies fever or chills Eyes: Denies change in visual acuity HENT: Denies nasal congestion or sore throat Respiratory: Denies cough or shortness of breath Cardiovascular: No additional information not addressed in HPI GI: Denies abdominal pain Musculoskeletal: Denies back pain Integument: Denies rash or skin lesions Neurologic: Denies headache All other systems were reviewed and found to be within normal limits, except as documented in this note. Current Medications Current Medications Current Medications Medications (Trade) Dose Ordered Sig/Yovanny Start Time Stop Time Status Last Admin Dose Admin Acetaminophen (Tylenol) 650 mg PRN Q4HRS PRN 12/02/17 23:30 12/03/17 23:29 Morphine Sulfate (Morphine Sulfate) 4 mg PRN Q2HR PRN 12/02/17 23:30 12/03/17 23:29 Norepinephrine Bitartrate 250 ml @ 0 mls/hr 1X ONCE 12/02/17 23:30 12/02/17 23:31 DC 12/02/17 23:27 9.4 MLS/HR Ondansetron HCl (Zofran) 4 mg PRN Q8HRS PRN 12/02/17 23:30 12/03/17 23:29 Sodium Chloride 500 ml @ 250 mls/hr 1X ONCE 12/02/17 23:15 12/03/17 01:14 12/02/17 23:00 250 MLS/HR Allergies Allergies Allergies Coded Allergies Type Severity Reaction Last Updated Verified codeine Allergy Intermediate HIVES 11/26/17 Yes I S O L A T I O N *CONTACT* Allergy Unknown 11/12/17 Yes Physical Exam Physical Exam Constitutional: Chronically ill appearing female who is in no distress HENT: Normocephalic, atraumatic, bilateral external ears normal, oropharynx moist Eyes: PERRLA, EOMI, conjunctiva normal Neck: Normal range of motion, no tenderness, no JVD Cardiovascular:Heart rate regular rhythm, no murmur Lungs & Thorax: Bilateral breath sounds clear to auscultation Abdomen: Bowel sounds normal, soft, NTTP, ostomy bag present with brown liquid stool Skin: Warm, dry, no erythema Extremities: left LE amputation. right with no edema, warm to touch Neurologic: Alert and oriented X 3 Psychologic: Affect normal Current Patient Data Vital Signs Vital Signs Date Time Temp Pulse Resp B/P (MAP) Pulse Ox O2 Delivery O2 Flow Rate FiO2 12/02/17 23:00 97.8 66 14 67/41 (50) 94 Room Air 97.8 Lab Values Laboratory Tests Test 12/02/17 23:05 White Blood Count 12.9 x10^3/uL (4.0-11.0) H Red Blood Count 3.02 x10^6/uL (3.50-5.40) L Hemoglobin 7.9 g/dL (12.0-15.5) L Hematocrit 25.0 % (36.0-47.0) L Mean Corpuscular Volume 83 fL (79-100) Mean Corpuscular Hemoglobin 26 pg (25-35) Mean Corpuscular Hemoglobin Concent 32 g/dL (31-37) Red Cell Distribution Width 19.5 % (11.5-14.5) H Platelet Count 333 x10^3/uL (140-400) Neutrophils (%) (Auto) 66 % (31-73) Lymphocytes (%) (Auto) 16 % (24-48) L Monocytes (%) (Auto) 12 % (0-9) H Eosinophils (%) (Auto) 6 % (0-3) H Basophils (%) (Auto) 1 % (0-3) Neutrophils # (Auto) 8.5 x10^3uL (1.8-7.7) H Lymphocytes # (Auto) 2.1 x10^3/uL (1.0-4.8) Monocytes # (Auto) 1.5 x10^3/uL (0.0-1.1) H Eosinophils # (Auto) 0.7 x10^3/uL (0.0-0.7) Basophils # (Auto) 0.1 x10^3/uL (0.0-0.2) Sodium Level 140 mmol/L (136-145) Potassium Level 3.4 mmol/L (3.5-5.1) L Chloride Level 101 mmol/L (98-107) Carbon Dioxide Level 26 mmol/L (21-32) Anion Gap 13 (6-14) Blood Urea Nitrogen 27 mg/dL (7-20) H Creatinine 5.4 mg/dL (0.6-1.0) H Estimated GFR (Cockcroft-Gault) 9.3 Glucose Level 97 mg/dL (70-99) Lactic Acid Level 1.3 mmol/L (0.4-2.0) Calcium Level 9.7 mg/dL (8.5-10.1) Troponin I Quantitative < 0.017 ng/mL (0.000-0.055) Laboratory Tests 12/02/17 23:05 Laboratory Tests 12/02/17 23:05 EKG EKG No STEMI Interpretation Time: 23:21 Radiology/Procedures Radiology/Procedures [] Course & Med Decision Making Course & Med Decision Making Pertinent Labs and Imaging studies reviewed. (See chart for details) 23:00: Patient is seen and examined. Currently with hypotension. Given hx of dialysis, will give judicious IVF bolus followed by levophed gtt if no improvement. Plan is to admit to ICU, continue IV antibiox. Dialysis due tomorrow. 23:32: The patient has no improvement in her blood pressure after 250 bolus of normal saline. Will start Levothroid. I did gain additional history from group home. They state they have been unable to obtain the ceftaroline medication. The patient did miss the evening dose of this medication this today only because she was sent to the group home with 2 doses and hand. Will continue her medications on admission and admit to hospitalist service. 23:55: Now with BP's 120's. Patient continues to deny complaints. Levo gtt decreased. Will admit to ICU. Ceftaroline dose ordered this evening 200 mg. Dragon Disclaimer Dragon Disclaimer This electronic medical record was generated, in whole or in part, using a voice recognition dictation system. Departure Departure Referrals: SAMANTHA FRANCE JR, MD (PCP) IMELDA WATT DO Dec 02, 2017 23:33
[2017-12-03] VITALS (26 sets, daily range): BP systolic 66–132; BP diastolic 45–89
[2017-12-03] MEDS ORDERED: NOREPINEPHRIN 8MG/250ML PREMIX 250 ML IV PRN (01:15)
[2017-12-03] MEDS: NORMAL SALINE IV SCH ×3 (01:16→21:40)
[2017-12-03] MEDS: CEFTAROLINE FOSAMIL IV SCH ×3 (01:16→21:40)
--- NOTE | 2017-12-03 02:17 | EKG ---
[facility] [address] [place] [id number] Test Date: 2017-12-02 Test Time: 23:23:00 Pat Name: ELMA WAHL Department: Room: Gender: F Jr. Systems Administrator: : [id number] Requested By: IMELDA WATT Order Number: [id number] Reading MD: Measurements Intervals [place] Rate: 65 P: 59 MS: 212 QRS: 49 QRSD: 72 T: 49 QT: 404 QTc: 425 Interpretive Statements SINUS RHYTHM NON SPECIFIC T ABNORMALITY NON SPECIFIC ST-T ABNORMALITY (ELEVATION) BORDERLINE ECG No previous ECG available for comparison
[2017-12-03 06:16] LABS: BASO # 0.2 x10^3/uL (0.0-0.2); BASO % 1 % (0-3); EOS # 1.2 x10^3/uL (0.0-0.7); EOS % 8 % (0-3); HEMATOCRIT 29.2 % (36.0-47.0); HEMOGLOBIN 9.3 g/dL (12.0-15.5); LYMPH # 2.5 x10^3/uL (1.0-4.8); LYMPH % 17 % (24-48); MEAN CORPUSCULAR HEMOGLOBIN 26 pg (25-35); MEAN CORPUSCULAR HGB CONC 32 g/dL (31-37); MEAN CORPUSCULAR VOLUME 82 fL (79-100); MONO # 1.5 x10^3/uL (0.0-1.1); MONO % 11 % (0-9); NEUT # 9.2 x10^3uL (1.8-7.7); NEUT % 63 % (31-73); PLATELET COUNT 412 x10^3/uL (140-400); RED BLOOD COUNT 3.58 x10^6/uL (3.50-5.40); RED CELL DISTRIBUTION WIDTH 19.4 % (11.5-14.5); WHITE BLOOD COUNT 14.6 x10^3/uL (4.0-11.0)
[2017-12-03 06:17] LABS: CALCIUM 9.4 mg/dL (8.5-10.1); CREATININE 5.6 mg/dL (0.6-1.0); POTASSIUM 3.4 mmol/L (3.5-5.1)
[2017-12-03 07:26] LABS: % BASOS 1 % (0-3); % EOS 10 % (0-5); % LYMPHS 16 % (24-48); % MONOS 8 % (0-10); % SEGS 65 % (35-66)
[2017-12-03 07:27] LABS: ANISOCYTOSIS SLIGHT; PLT ESTIMATE INCREASED (ADEQUATE)
--- NOTE | 2017-12-03 07:35 | PDOC1 ---
History and Physical Date of Admission Date of Admission DATE: 12/03/17 TIME: 07:31 Identification/Chief Complaint Chief Complaint Diarrhea Hypotension H/o MRSA bacteremia History of Present Illness History of Present Illness 77 year old female who presents with hypotension, diarrhea. The patient is a 77-year-old female who was just discharged from this hospital yesterday. She was discharged to an acute nursing facility. The patient was diagnosed with bacteremia and pneumonia during her hospitalization. She was discharged home on renal dose antibiotics. Today, [facility]dc staff reported that the patient was noted to have hypotension with blood pressures in 60s. They also noted that she had over 1 L of loose stool out from her ostomy today. The patient was also complaining of severe right lower foot pain which is a chronic complaint. The fdc only had orders for by mouth hydrocodone which they had given the patient but this did not relieve the patient's pain. Given all of these problems , the patient was referred back to the emergency department for evaluation. On arrival to the emergency department, the patient does have a systolic blood pressure 57. With that, she is awake and alert. She is mentating at baseline. She denies any complaints other than simply "doesn't feel very good.". Currently, she does complain of right lower extremity pain and states she has no other problems Apparently, Ceftarolone was supposed to be dosed at [facility], she was sent with 2 doses, but [facility] was unable to obtain to continue dosing, she was given 1x dose in the ED. She was noted with elevated WBC and breathing 25 breaths per minute initially in the ED and after missing dose of antibiotics she was admitted for treatment for sepsis for presumptive MRSA bacteremia. She was started on levophed for BP persistently low and admitted to the ICU. Past Medical History Cardiovascular: CAD, HTN, Hyperlipidemia, Other Pulmonary: No pertinent hx CENTRAL NERVOUS SYSTEM: Other GI: Other Heme/Onc: Anemia NOS Hepatobiliary: No pertinent hx Psych: Anxiety Musculoskeletal: Other Renal/: Chronic renal failure Endocrine: Hyperparathyroidism Past Surgical History Past Surgical History: Colon Resection, Other Family History Family History: Family History Unknown, Other Social History ALCOHOL: none Drugs: None Current Medications Current Medications Current Medications Sodium Chloride 500 ml @ 250 mls/hr 1X ONCE IV Last administered on at 23:00; Start 12/02/17 at 23:15; Stop 12/03/17 at 01:14; Status DC Norepinephrine Bitartrate 250 ml @ 0 mls/hr 1X ONCE IV Last administered on at 23:27; Start 12/02/17 at 23:30; Stop 12/02/17 at 23:31; Status DC Ondansetron HCl (Zofran) 4 mg PRN Q8HRS PRN IV NAUSEA/VOMITING; Start at 23:30; Stop 12/03/17 at 23:29 Morphine Sulfate (Morphine Sulfate) 4 mg PRN Q2HR PRN IV PAIN Last administered on 12/03/17at 01:16; Start 12/02/17 at 23:30; Stop 12/03/17 at 23 :29 Acetaminophen (Tylenol) 650 mg PRN Q4HRS PRN PO FEVER; Start 12/02/17 at 23:30 ; Stop 12/03/17 at 23:29 Ceftaroline Fosamil 200 mg/ Sodium Chloride 250 ml @ 250 mls/hr Q12HR IV Last administered on 12/03/17at 01:16; Start 12/03/17 at 00:30 Norepinephrine Bitartrate 250 ml @ 1.875 mls/ hr CONT PRN IV SEE I/O RECORD; Start 12/03/17 at 01:15 Pharmacy Consult (C.diff Med Screen By Rx) 1 each 1X ONCE [facility] ; Start 12/03/17 at 09:00; Stop 12/03/17 at 09:01 Active Scripts Active Midodrine Hcl 5 Mg Tablet 10 Mg PO [id number] Artificial Tears (Polyvinyl Alcohol) 15 Ml Drops 1 Drop OU PRN Q15MIN PRN 30 Days Acetaminophen Supp (Acetaminophen) 650 Mg Supp.rect 650 Mg NV PRN Q6HRS PRN 30 Days Hydrocodone-Apap 7.5-325 (Hydrocodone Bit/Acetaminophen) 1 Each Tablet 1 Tab PO PRN Q8HRS PRN 7 Days Reported Multivitamins (Multivitamin) 1 Each Tablet 1 Tab PO DAILY Sensipar (Cinacalcet Hcl) 30 Mg Tablet 1 Tab PO HS Azulfidine (Sulfasalazine) 500 Mg Tablet 500 Mg PO BID Lomotil Tablet (Diphenoxylate Hcl/Atropine) 1 Each Tablet 1 Tab PO PRN Q8HRS Nephro-Nabeel Tablet (Folic Acid/Vitamin B Comp W-C) 0.8 Mg Tablet 1 Tab PO DAILY Triamcinolone Acetonide 0.1% Cream (Triamcinolone Acetonide) 15 Gm Cream..g. 1 Hanh TP PRN Q8HRS apply to bilat legs topically as needed for skin care Allergies Allergies: Coded Allergies: codeine (Verified Allergy, Intermediate, HIVES, 11/26/17) Patient received morphine 11/29 and 10/30 and tolerated with no noted adverse effects I S O L A T I O N *CONTACT* (Verified Allergy, Unknown, 11/12/17) mrsa+ blood 11/01/17 ROS General: YES: Fatigue, Appetite; No: Chills, Night Sweats, Malaise, Other PSYCHOLOGICAL ROS: YES: Depression; No: Anxiety, Behavioral Disorder, Concentration difficultie, Decreased libido , Disorientation, Hallucinations, Hostility, Irritablity, Memory difficulties, Mood Swings, Obsessive thoughts, Physical abuse, Sexual abuse, Sleep disturbances, Suicidal ideation, Other Eyes: No Blurry vision, No Decreased vision, No Double vision, No Dry eyes, No Excessive tearing, No Eye Pain, No Itchy Eyes, No Loss of vision, No Photophobia , No Scotomata, No Uses contacts, No Uses glasses, No Other HEENT: No: Heacaches, Visual Changes, Hearing change, Nasal congestion, Nasal discharge, Oral lesions, Sinus pain, Sore Throat, Epistaxis, Sneezing, Snoring, Tinnitus, Vertigo, Vocal changes, Other ALLERGY AND IMMUNOLOGY: No: Hives, Insect Bite Sensitivity, Itchy/Watery Eyes, Nasal Congestion, Post Nasal Drip, Seasonal Allergies, Other Hematological and Lymphatic: No: Bleeding Problems, Blood Clots, Blood Transfusions, Brusing, Night Sweats, Pallor, Swollen Lymph Nodes, Other ENDOCRINE: No: Breast Changes, Galactorrhea, Hair Pattern Changes, Hot Flashes , Malaise/lethargy, Mood Swings, Palpitations, Polydipsia/polyuria, Skin Changes , Temperature Intolerance, Unexpected Weight Changes, Other Breast: No New/Changing Breast Lumps, No Nipple changes, No Nipple discharge, No Other Respiratory: YES: Cough, Shortness of breath, Tachypnea; No: Hemoptysis, Orthopnea, Pleuritic Pain, SOB with excertion, Sputum Changes , Stridor, Wheezing, Other Cardiovascular: No Chest Pain, No Palpitations, No Orthopnea, No Paroxysmal Noc. Dyspnea, No Edema, No Lt Headedness, No Other Gastrointestinal: Yes Nausea Genitourinary: YES Dysuria; No Frequency, No Incontinence, No Hematuria, No Retention, No Discharge, No Urgency, No Pain, No Flank Pain, No Other, No , No , No , No , No , No , No Musculoskeletal: Yes Gait Disturbance, Yes Muscular Weakness; No Joint Pain, No Joint Stiffness, No Joint Swelling, No Muscle Pain, No Pain In:, No Swelling In:, No Other Neurological: Yes Gait Disturbance, Yes Headaches; No Behavorial Changes, No Bowel/Bladder ControlChng, No Confusion, No Dizziness, No Impaired Coord/balance, No Memory Loss, No Numbness/Tingling, No Seizures, No Speech Problems, No Tremors, No Visual Changes, No Weakness, No Other Skin: Yes Mottling (RLE); No Dry Skin, No Eczema, No Hair Changes, No Lumps, No Mole Changes, No Nail Changes, No Pruritus, No Rash, No Skin Lesion Changes, No Other, No Acne Physical Exam Physical Exam GENERAL: Propped up in bed, alert, NAD. looks well HEENT: Oral cavity dry. Dentures. no conjunc petechia LUNGS: Clear HEART: S1, S2. ABDOMEN: Soft. BS +. Ostomy, nontender EXTREMITIES: Left BKA, stump. Right lateral leg wound, small 1cm, . 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 (Mottling to right toe, right posterior calf with open ulcer, mild surrounding erythema. ) Tunneled HDC (11/16) w/o signs of complications. Left chest PICC - clean Vitals Vitals Vital Signs Date Time Temp Pulse Resp B/P (MAP) Pulse Ox O2 Delivery O2 Flow Rate FiO2 12/03/17 06:00 65 26 97/52 (67) 94 Nasal Cannula 2.0 12/03/17 04:00 98.0 98.0 Labs Labs Laboratory Tests Test 12/02/17 23:05 12/03/17 02:45 12/03/17 05:35 White Blood Count 12.9 x10^3/uL (4.0-11.0) 14.6 x10^3/uL (4.0-11.0) Red Blood Count 3.02 x10^6/uL (3.50-5.40) 3.58 x10^6/uL (3.50-5.40) Hemoglobin 7.9 g/dL (12.0-15.5) 9.3 g/dL (12.0-15.5) Hematocrit 25.0 % (36.0-47.0) 29.2 % (36.0-47.0) Mean Corpuscular Volume 83 fL (79-100) 82 fL (79-100) Mean Corpuscular Hemoglobin 26 pg (25-35) 26 pg (25-35) Mean Corpuscular Hemoglobin Concent 32 g/dL (31-37) 32 g/dL (31-37) Red Cell Distribution Width 19.5 % (11.5-14.5) 19.4 % (11.5-14.5) Platelet Count 333 x10^3/uL (140-400) 412 x10^3/uL (140-400) Neutrophils (%) (Auto) 66 % (31-73) 63 % (31-73) Lymphocytes (%) (Auto) 16 % (24-48) 17 % (24-48) Monocytes (%) (Auto) 12 % (0-9) 11 % (0-9) Eosinophils (%) (Auto) 6 % (0-3) 8 % (0-3) Basophils (%) (Auto) 1 % (0-3) 1 % (0-3) Neutrophils # (Auto) 8.5 x10^3uL (1.8-7.7) 9.2 x10^3uL (1.8-7.7) Lymphocytes # (Auto) 2.1 x10^3/uL (1.0-4.8) 2.5 x10^3/uL (1.0-4.8) Monocytes # (Auto) 1.5 x10^3/uL (0.0-1.1) 1.5 x10^3/uL (0.0-1.1) Eosinophils # (Auto) 0.7 x10^3/uL (0.0-0.7) 1.2 x10^3/uL (0.0-0.7) Basophils # (Auto) 0.1 x10^3/uL (0.0-0.2) 0.2 x10^3/uL (0.0-0.2) Sodium Level 140 mmol/L (136-145) 141 mmol/L (136-145) Potassium Level 3.4 mmol/L (3.5-5.1) 3.4 mmol/L (3.5-5.1) Chloride Level 101 mmol/L (98-107) 104 mmol/L (98-107) Carbon Dioxide Level 26 mmol/L (21-32) 22 mmol/L (21-32) Anion Gap 13 (6-14) 15 (6-14) Blood Urea Nitrogen 27 mg/dL (7-20) 29 mg/dL (7-20) Creatinine 5.4 mg/dL (0.6-1.0) 5.6 mg/dL (0.6-1.0) Estimated GFR (Cockcroft-Gault) 9.3 9.0 Glucose Level 97 mg/dL (70-99) 102 mg/dL (70-99) Lactic Acid Level 1.3 mmol/L (0.4-2.0) Calcium Level 9.7 mg/dL (8.5-10.1) 9.4 mg/dL (8.5-10.1) Troponin I Quantitative < 0.017 ng/mL (0.000-0.055) < 0.017 ng/mL (0.000-0.055) 0.022 ng/mL (0.000-0.055) Segmented Neutrophils % 65 % (35-66) Lymphocytes % 16 % (24-48) Monocytes % 8 % (0-10) Eosinophils % 10 % (0-5) Basophils % 1 % (0-3) Platelet Estimate Increased (ADEQUATE) Large Platelets Present Anisocytosis Slight Laboratory Tests Test 12/02/17 23:05 12/03/17 02:45 12/03/17 05:35 White Blood Count 12.9 x10^3/uL (4.0-11.0) 14.6 x10^3/uL (4.0-11.0) Red Blood Count 3.02 x10^6/uL (3.50-5.40) 3.58 x10^6/uL (3.50-5.40) Hemoglobin 7.9 g/dL (12.0-15.5) 9.3 g/dL (12.0-15.5) Hematocrit 25.0 % (36.0-47.0) 29.2 % (36.0-47.0) Mean Corpuscular Volume 83 fL (79-100) 82 fL (79-100) Mean Corpuscular Hemoglobin 26 pg (25-35) 26 pg (25-35) Mean Corpuscular Hemoglobin Concent 32 g/dL (31-37) 32 g/dL (31-37) Red Cell Distribution Width 19.5 % (11.5-14.5) 19.4 % (11.5-14.5) Platelet Count 333 x10^3/uL (140-400) 412 x10^3/uL (140-400) Neutrophils (%) (Auto) 66 % (31-73) 63 % (31-73) Lymphocytes (%) (Auto) 16 % (24-48) 17 % (24-48) Monocytes (%) (Auto) 12 % (0-9) 11 % (0-9) Eosinophils (%) (Auto) 6 % (0-3) 8 % (0-3) Basophils (%) (Auto) 1 % (0-3) 1 % (0-3) Neutrophils # (Auto) 8.5 x10^3uL (1.8-7.7) 9.2 x10^3uL (1.8-7.7) Lymphocytes # (Auto) 2.1 x10^3/uL (1.0-4.8) 2.5 x10^3/uL (1.0-4.8) Monocytes # (Auto) 1.5 x10^3/uL (0.0-1.1) 1.5 x10^3/uL (0.0-1.1) Eosinophils # (Auto) 0.7 x10^3/uL (0.0-0.7) 1.2 x10^3/uL (0.0-0.7) Basophils # (Auto) 0.1 x10^3/uL (0.0-0.2) 0.2 x10^3/uL (0.0-0.2) Sodium Level 140 mmol/L (136-145) 141 mmol/L (136-145) Potassium Level 3.4 mmol/L (3.5-5.1) 3.4 mmol/L (3.5-5.1) Chloride Level 101 mmol/L (98-107) 104 mmol/L (98-107) Carbon Dioxide Level 26 mmol/L (21-32) 22 mmol/L (21-32) Anion Gap 13 (6-14) 15 (6-14) Blood Urea Nitrogen 27 mg/dL (7-20) 29 mg/dL (7-20) Creatinine 5.4 mg/dL (0.6-1.0) 5.6 mg/dL (0.6-1.0) Estimated GFR (Cockcroft-Gault) 9.3 9.0 Glucose Level 97 mg/dL (70-99) 102 mg/dL (70-99) Lactic Acid Level 1.3 mmol/L (0.4-2.0) Calcium Level 9.7 mg/dL (8.5-10.1) 9.4 mg/dL (8.5-10.1) Troponin I Quantitative < 0.017 ng/mL (0.000-0.055) < 0.017 ng/mL (0.000-0.055) 0.022 ng/mL (0.000-0.055) Segmented Neutrophils % 65 % (35-66) Lymphocytes % 16 % (24-48) Monocytes % 8 % (0-10) Eosinophils % 10 % (0-5) Basophils % 1 % (0-3) Platelet Estimate Increased (ADEQUATE) Large Platelets Present Anisocytosis Slight VTE Prophylaxis Ordered VTE Prophylaxis Devices: No VTE Pharmacological Prophylaxi: Yes Assessment/Plan Assessment/Plan A/P: Sepsis/Septic shock - MRSA from 11/21 POA ([facility]) while on Vanc for MRSA bacteremia from previous admission. on daptomycin, Ceftaroline. _ ID following Persistently - Hypotension on midodrine, will restart. TAKE BPs IN HER LEGS Right basilar atelectasis versus infiltrate - ongoing H/O High grade MRSA bacteremia previous admission from 10/31. source infected HD cath,s/p removal. Discharged on vanc -Repeat BC on 11/02, 11/04 & 11/08 positive. BC 11/13 negative -ECHO without evidence of veg H/O infected right HDC cath s/p removal on 11/01 + MRSA. -s/p interval placement of a temp [facility]J/HDC on 11/01; removed. -s/p Tunneled HDC placement on 11/16. Leukocytosis - from sepsis likely because she missed a dose Resp failure w/ pleural effusion s/p thoracentesis 11/07 - still on O2, weaning as tolerated Afib - controlled, will cont BB ESRD on HD - Stable, will consult nephro Anemia chronic - likely 2/2 ESRD Lt BKA - doing well Dysphagia - dysphagia 2 diet Diarrhea. C. diff neg 11/22 - will monitor Right toes pain with distal rt leg PAD - Chronic lateral rt leg nonhealing wound - due for revascularization later this week. Consider Vacular consult for PAD, pt wanted to do sx if need. Diet - dysphagia 2 diet dvt ppx PT/OT DNR/DNI Will cont ICU, however I suspect her low BP may be due to severe vascular disease, will get her supine and check BP in legs. Possibly to floor tomorrow if we can get her off pressors JOJO GRIFFIN MD Dec 03, 2017 07:35
--- NOTE | 2017-12-03 08:15 | PDOC ---
Infectious Disease Note Subjective Subjective Pt is known to us, returned with low BP. Pt always has low BP. Denies any fever , chills, cp, sob,abd pain c/o rt big toe pain Is on vasopressors ROS ROS no n/v/d/sob/fever Vital Sign Vital Signs Vital Signs Date Time Temp Pulse Resp B/P (MAP) Pulse Ox O2 Delivery O2 Flow Rate FiO2 12/03/17 07:00 63 16 93/51 (65) 100 Nasal Cannula 2.0 12/03/17 04:00 98.0 98.0 Physical Exam PHYSICAL EXAM GENERAL: Propped up in bed, alert, smiling HEENT: Oral cavity dry. Dentures. no conjunc petechia LUNGS: Clear HEART: S1, S2. ABDOMEN: Soft. BS +. Ostomy, nontender EXTREMITIES: Left BKA, stump. Right lateral leg wound, small 1cm, . 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 rt big toe tender but not red, swollen or any wound Tunneled HDC (11/16) w/o signs of complications. Left chest PICC (11/26) clean Labs Lab Laboratory Tests Test 12/02/17 23:05 12/03/17 02:45 12/03/17 05:35 White Blood Count 12.9 x10^3/uL (4.0-11.0) 14.6 x10^3/uL (4.0-11.0) Red Blood Count 3.02 x10^6/uL (3.50-5.40) 3.58 x10^6/uL (3.50-5.40) Hemoglobin 7.9 g/dL (12.0-15.5) 9.3 g/dL (12.0-15.5) Hematocrit 25.0 % (36.0-47.0) 29.2 % (36.0-47.0) Mean Corpuscular Volume 83 fL (79-100) 82 fL (79-100) Mean Corpuscular Hemoglobin 26 pg (25-35) 26 pg (25-35) Mean Corpuscular Hemoglobin Concent 32 g/dL (31-37) 32 g/dL (31-37) Red Cell Distribution Width 19.5 % (11.5-14.5) 19.4 % (11.5-14.5) Platelet Count 333 x10^3/uL (140-400) 412 x10^3/uL (140-400) Neutrophils (%) (Auto) 66 % (31-73) 63 % (31-73) Lymphocytes (%) (Auto) 16 % (24-48) 17 % (24-48) Monocytes (%) (Auto) 12 % (0-9) 11 % (0-9) Eosinophils (%) (Auto) 6 % (0-3) 8 % (0-3) Basophils (%) (Auto) 1 % (0-3) 1 % (0-3) Neutrophils # (Auto) 8.5 x10^3uL (1.8-7.7) 9.2 x10^3uL (1.8-7.7) Lymphocytes # (Auto) 2.1 x10^3/uL (1.0-4.8) 2.5 x10^3/uL (1.0-4.8) Monocytes # (Auto) 1.5 x10^3/uL (0.0-1.1) 1.5 x10^3/uL (0.0-1.1) Eosinophils # (Auto) 0.7 x10^3/uL (0.0-0.7) 1.2 x10^3/uL (0.0-0.7) Basophils # (Auto) 0.1 x10^3/uL (0.0-0.2) 0.2 x10^3/uL (0.0-0.2) Sodium Level 140 mmol/L (136-145) 141 mmol/L (136-145) Potassium Level 3.4 mmol/L (3.5-5.1) 3.4 mmol/L (3.5-5.1) Chloride Level 101 mmol/L (98-107) 104 mmol/L (98-107) Carbon Dioxide Level 26 mmol/L (21-32) 22 mmol/L (21-32) Anion Gap 13 (6-14) 15 (6-14) Blood Urea Nitrogen 27 mg/dL (7-20) 29 mg/dL (7-20) Creatinine 5.4 mg/dL (0.6-1.0) 5.6 mg/dL (0.6-1.0) Estimated GFR (Cockcroft-Gault) 9.3 9.0 Glucose Level 97 mg/dL (70-99) 102 mg/dL (70-99) Lactic Acid Level 1.3 mmol/L (0.4-2.0) Calcium Level 9.7 mg/dL (8.5-10.1) 9.4 mg/dL (8.5-10.1) Troponin I Quantitative < 0.017 ng/mL (0.000-0.055) < 0.017 ng/mL (0.000-0.055) 0.022 ng/mL (0.000-0.055) Segmented Neutrophils % 65 % (35-66) Lymphocytes % 16 % (24-48) Monocytes % 8 % (0-10) Eosinophils % 10 % (0-5) Basophils % 1 % (0-3) Platelet Estimate Increased (ADEQUATE) Large Platelets Present Anisocytosis Slight Objective Assessment Chronically low BP Sepsis with reported MRSA from 11/21 POA ([facility]) while on Vanc for MRSA bacteremia from previous admission -Repeat BC from 11/22 & NGTD. PHILIP 11/27 neg Hypotension - resolved Right basilar atelectasis versus infiltrate H/O High grade MRSA bacteremia previous admission from 10/31. source infected HD cath,s/p removal. Discharged on vanc -Repeat BC on 11/02, 11/04 & 11/08 positive. BC 11/13 negative -ECHO without evidence of veg H/O infected right HDC cath s/p removal on 11/01 + MRSA. -s/p interval placement of a temp LIJ/HDC on 11/01; removed. -s/p Tunneled HDC placement on 11/16. Leukocytosis - better Resp failure w/ pleural effusion s/p thoracentesis 11/07 with 1/1 liter removed pH 7.51. 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 C. diff neg 11/22 Plan Plan of Care pt has chronically low BP she alert awake and appropriate last neg BC 11/23 pt is on ceftarolin and daptomycin cont supportive care d/c vasopressors gradually DOMONIQUE HARDEN MD Dec 03, 2017 08:15
[2017-12-03] MEDS ORDERED: C.DIFF MED SCREEN BY RX. MC ONE (09:00)
[2017-12-03] MEDS ORDERED: ACETAMINOPHEN 650 MG SUPP.RECT. PR PRN (10:45)
[2017-12-03] MEDS ORDERED: TRIAMCINOLONE ACETONIDE 0.1% TOPICAL CREAM 15GM TUBE. TP PRN (10:45)
[2017-12-03] MEDS ORDERED: POLYVINYL ALCOHOL 1.4% OPHTH SOLUTION 15ML BOTTLE. OU PRN (10:45)
[2017-12-03] MEDS: FOLIC/VIT B COMP W-C (RENAL) TABLET. PO SCH (11:31)
[2017-12-03] MEDS: sulfaSALAzine 500 MG TABLET PO SCH ×2 (11:31→21:50)
[2017-12-03] MEDS: HYDROcodone/APAP 7.5/325MG 1 TAB TABLET PO PRN ×2 (11:32→21:40)
--- NOTE | 2017-12-03 11:49 | PDOC2 ---
CONSULT Date of Consult Date of Consult DATE: 12/03/17 TIME: 11:44 Reason for Consult Reason for Consult: ESRD AND LOW K Referring Physician Referring Physician: APRYL Identification/Chief Complaint Chief Complaint LOW BP AND WEAK Source Source: Chart review, Patient History of Present Illness Reason for Visit: THIS IS A 77 YR OLD ESRD PT BROUGHT IN WITH DIARRHEA AND HYPOTENSION. ASYMPTOMATIC FROM LOW BP. HAS ESRD AND ON HD MWF. RECENTLY TREATED FOR LINE RELATED SEPSIS. LAST CX WAS NEG PER ID. HAS DECONDITIONING AND LABS ARE C/W ESRD EXCEPT FOR HER LOW K. SHE ALSO HAS LEUCOCYTOSIS Past Medical History Cardiovascular: CAD, HTN, Hyperlipidemia, Other Pulmonary: No pertinent hx CENTRAL NERVOUS SYSTEM: Other GI: Other Heme/Onc: Anemia NOS Hepatobiliary: No pertinent hx Psych: Anxiety Musculoskeletal: Other Renal/: Chronic renal failure Endocrine: Hyperparathyroidism Past Surgical History Past Surgical History: Colon Resection, Other Family History Family History: Family History Unknown, Other Social History ALCOHOL: none Drugs: None Lives: with Family Current Medications Current Medications Current Medications Sodium Chloride 500 ml @ 250 mls/hr 1X ONCE IV Last administered on at 23:00; Start 12/02/17 at 23:15; Stop 12/03/17 at 01:14; Status DC Norepinephrine Bitartrate 250 ml @ 0 mls/hr 1X ONCE IV Last administered on at 23:27; Start 12/02/17 at 23:30; Stop 12/02/17 at 23:31; Status DC Ondansetron HCl (Zofran) 4 mg PRN Q8HRS PRN IV NAUSEA/VOMITING; Start at 23:30; Stop 12/03/17 at 23:29 Morphine Sulfate (Morphine Sulfate) 4 mg PRN Q2HR PRN IV PAIN Last administered on 12/03/17at 01:16; Start 12/02/17 at 23:30; Stop 12/03/17 at 23 :29 Acetaminophen (Tylenol) 650 mg PRN Q4HRS PRN PO FEVER; Start 12/02/17 at 23:30 ; Stop 12/03/17 at 23:29 Ceftaroline Fosamil 200 mg/ Sodium Chloride 250 ml @ 250 mls/hr Q12HR IV Last administered on 12/03/17at 09:00; Start 12/03/17 at 00:30 Norepinephrine Bitartrate 250 ml @ 1.875 mls/ hr CONT PRN IV SEE I/O RECORD; Start 12/03/17 at 01:15 Pharmacy Consult (C.diff Med Screen By Rx) 1 each 1X ONCE MC ; Start 12/03/17 at 09:00; Stop 12/03/17 at 09:01; Status DC Lactobacillus Rhamnosus (Culturelle) 1 cap BID PO ; Start 12/03/17 at 21:00 Acetaminophen (Tylenol Supp) 650 mg PRN Q6HRS PRN IL MILD PAIN / TEMP; Start 12/03/17 at 10:45 Cinacalcet (Sensipar) 30 mg HS PO ; Start 12/03/17 at 21:00 Diphenoxylate HCl/ Atropine (Lomotil) 1 tab PRN Q8HRS PRN PO DIARRHEA; Start 12/03/17 at 10:45 Vitamin B Complex/ Vitamin C (Yaneth-Nabeel) 1 tab DAILY PO Last administered on at 11:31; Start 12/03/17 at 11:30 Acetaminophen/ Hydrocodone Bitart (Lortab 7.5/325) 1 tab PRN Q8HRS PRN PO MODERATE-SEVERE PAIN Last administered on 12/03/17at 11:32; Start 12/03/17 at 10:45 Artificial Tears (Artificial Tears) 1 drop PRN Q15MIN PRN OU DRY EYE; Start at 10:45 Triamcinolone Acetonide (Kenalog) 1 hanh PRN Q8HRS PRN TP RASH; Start 12/03/17 at 10:45 Midodrine (Proamatine) 10 mg [id number] PO ; Start 12/03/17 at 13:00 Multivitamins (Thera M Plus) 1 tab DAILY PO ; Start 12/04/17 at 09:00 Sulfasalazine (Azulfidine) 500 mg BID PO Last administered on 12/03/17at 11:31 ; Start 12/03/17 at 11:30 Active Scripts Active Midodrine Hcl 5 Mg Tablet 10 Mg PO [id number] Artificial Tears (Polyvinyl Alcohol) 15 Ml Drops 1 Drop OU PRN Q15MIN PRN 30 Days Acetaminophen Supp (Acetaminophen) 650 Mg Supp.rect 650 Mg [place] PRN Q6HRS PRN 30 Days Hydrocodone-Apap 7.5-325 (Hydrocodone Bit/Acetaminophen) 1 Each Tablet 1 Tab PO PRN Q8HRS PRN 7 Days Reported Multivitamins (Multivitamin) 1 Each Tablet 1 Tab PO DAILY Sensipar (Cinacalcet Hcl) 30 Mg Tablet 1 Tab PO HS Azulfidine (Sulfasalazine) 500 Mg Tablet 500 Mg PO BID Lomotil Tablet (Diphenoxylate Hcl/Atropine) 1 Each Tablet 1 Tab PO PRN Q8HRS Nephro-Nabeel Tablet (Folic Acid/Vitamin B Comp W-C) 0.8 Mg Tablet 1 Tab PO DAILY Triamcinolone Acetonide 0.1% Cream (Triamcinolone Acetonide) 15 Gm Cream..g. 1 Hanh TP PRN Q8HRS apply to bilat legs topically as needed for skin care Allergies Allergies: Coded Allergies: codeine (Verified Allergy, Intermediate, HIVES, 11/26/17) Patient received morphine 11/29 and 10/30 and tolerated with no noted adverse effects I S O L A T I O N *CONTACT* (Verified Allergy, Unknown, 11/12/17) mrsa+ blood 11/01/17 ROS General: YES: Fatigue, Malaise, Appetite PSYCHOLOGICAL ROS: YES: Anxiety, Depression Eyes: Yes Decreased vision HEENT: YES: Heacaches Respiratory: YES: Cough Gastrointestinal: Yes Nausea, Yes Diarrhea Genitourinary: YES Other (ANURIA) Musculoskeletal: Yes Muscular Weakness Neurological: Yes Weakness Skin: Yes Dry Skin Physical Exam General: Alert, Oriented X3, Cooperative, No acute distress HEENT: Atraumatic, PERRLA, EOMI, Other (DRY MUCOSA) Lungs: Clear to auscultation Heart: Regular rate Abdomen: Normal bowel sounds, Soft, No tenderness Extremities: No clubbing Skin: No breakdown Neuro: Normal speech, Cranial nerves 3-12 NL Psych/Mental Status: Mental status NL, Mood NL MUSCULOSKELETAL: No deformity, No swelling Vitals VITALS Vital Signs Date Time Temp Pulse Resp B/P (MAP) Pulse Ox O2 Delivery O2 Flow Rate FiO2 12/03/17 11:32 16 98 Nasal Cannula 2.0 12/03/17 11:00 98.3 68 132/50 (77) 98.3 Labs Labs Laboratory Tests Test 12/02/17 23:05 12/03/17 02:45 12/03/17 05:35 White Blood Count 12.9 x10^3/uL (4.0-11.0) 14.6 x10^3/uL (4.0-11.0) Red Blood Count 3.02 x10^6/uL (3.50-5.40) 3.58 x10^6/uL (3.50-5.40) Hemoglobin 7.9 g/dL (12.0-15.5) 9.3 g/dL (12.0-15.5) Hematocrit 25.0 % (36.0-47.0) 29.2 % (36.0-47.0) Mean Corpuscular Volume 83 fL (79-100) 82 fL (79-100) Mean Corpuscular Hemoglobin 26 pg (25-35) 26 pg (25-35) Mean Corpuscular Hemoglobin Concent 32 g/dL (31-37) 32 g/dL (31-37) Red Cell Distribution Width 19.5 % (11.5-14.5) 19.4 % (11.5-14.5) Platelet Count 333 x10^3/uL (140-400) 412 x10^3/uL (140-400) Neutrophils (%) (Auto) 66 % (31-73) 63 % (31-73) Lymphocytes (%) (Auto) 16 % (24-48) 17 % (24-48) Monocytes (%) (Auto) 12 % (0-9) 11 % (0-9) Eosinophils (%) (Auto) 6 % (0-3) 8 % (0-3) Basophils (%) (Auto) 1 % (0-3) 1 % (0-3) Neutrophils # (Auto) 8.5 x10^3uL (1.8-7.7) 9.2 x10^3uL (1.8-7.7) Lymphocytes # (Auto) 2.1 x10^3/uL (1.0-4.8) 2.5 x10^3/uL (1.0-4.8) Monocytes # (Auto) 1.5 x10^3/uL (0.0-1.1) 1.5 x10^3/uL (0.0-1.1) Eosinophils # (Auto) 0.7 x10^3/uL (0.0-0.7) 1.2 x10^3/uL (0.0-0.7) Basophils # (Auto) 0.1 x10^3/uL (0.0-0.2) 0.2 x10^3/uL (0.0-0.2) Sodium Level 140 mmol/L (136-145) 141 mmol/L (136-145) Potassium Level 3.4 mmol/L (3.5-5.1) 3.4 mmol/L (3.5-5.1) Chloride Level 101 mmol/L (98-107) 104 mmol/L (98-107) Carbon Dioxide Level 26 mmol/L (21-32) 22 mmol/L (21-32) Anion Gap 13 (6-14) 15 (6-14) Blood Urea Nitrogen 27 mg/dL (7-20) 29 mg/dL (7-20) Creatinine 5.4 mg/dL (0.6-1.0) 5.6 mg/dL (0.6-1.0) Estimated GFR (Cockcroft-Gault) 9.3 9.0 Glucose Level 97 mg/dL (70-99) 102 mg/dL (70-99) Lactic Acid Level 1.3 mmol/L (0.4-2.0) Calcium Level 9.7 mg/dL (8.5-10.1) 9.4 mg/dL (8.5-10.1) Troponin I Quantitative < 0.017 ng/mL (0.000-0.055) < 0.017 ng/mL (0.000-0.055) 0.022 ng/mL (0.000-0.055) Segmented Neutrophils % 65 % (35-66) Lymphocytes % 16 % (24-48) Monocytes % 8 % (0-10) Eosinophils % 10 % (0-5) Basophils % 1 % (0-3) Platelet Estimate Increased (ADEQUATE) Large Platelets Present Anisocytosis Slight Laboratory Tests Test 12/02/17 23:05 12/03/17 02:45 12/03/17 05:35 White Blood Count 12.9 x10^3/uL (4.0-11.0) 14.6 x10^3/uL (4.0-11.0) Red Blood Count 3.02 x10^6/uL (3.50-5.40) 3.58 x10^6/uL (3.50-5.40) Hemoglobin 7.9 g/dL (12.0-15.5) 9.3 g/dL (12.0-15.5) Hematocrit 25.0 % (36.0-47.0) 29.2 % (36.0-47.0) Mean Corpuscular Volume 83 fL (79-100) 82 fL (79-100) Mean Corpuscular Hemoglobin 26 pg (25-35) 26 pg (25-35) Mean Corpuscular Hemoglobin Concent 32 g/dL (31-37) 32 g/dL (31-37) Red Cell Distribution Width 19.5 % (11.5-14.5) 19.4 % (11.5-14.5) Platelet Count 333 x10^3/uL (140-400) 412 x10^3/uL (140-400) Neutrophils (%) (Auto) 66 % (31-73) 63 % (31-73) Lymphocytes (%) (Auto) 16 % (24-48) 17 % (24-48) Monocytes (%) (Auto) 12 % (0-9) 11 % (0-9) Eosinophils (%) (Auto) 6 % (0-3) 8 % (0-3) Basophils (%) (Auto) 1 % (0-3) 1 % (0-3) Neutrophils # (Auto) 8.5 x10^3uL (1.8-7.7) 9.2 x10^3uL (1.8-7.7) Lymphocytes # (Auto) 2.1 x10^3/uL (1.0-4.8) 2.5 x10^3/uL (1.0-4.8) Monocytes # (Auto) 1.5 x10^3/uL (0.0-1.1) 1.5 x10^3/uL (0.0-1.1) Eosinophils # (Auto) 0.7 x10^3/uL (0.0-0.7) 1.2 x10^3/uL (0.0-0.7) Basophils # (Auto) 0.1 x10^3/uL (0.0-0.2) 0.2 x10^3/uL (0.0-0.2) Sodium Level 140 mmol/L (136-145) 141 mmol/L (136-145) Potassium Level 3.4 mmol/L (3.5-5.1) 3.4 mmol/L (3.5-5.1) Chloride Level 101 mmol/L (98-107) 104 mmol/L (98-107) Carbon Dioxide Level 26 mmol/L (21-32) 22 mmol/L (21-32) Anion Gap 13 (6-14) 15 (6-14) Blood Urea Nitrogen 27 mg/dL (7-20) 29 mg/dL (7-20) Creatinine 5.4 mg/dL (0.6-1.0) 5.6 mg/dL (0.6-1.0) Estimated GFR (Cockcroft-Gault) 9.3 9.0 Glucose Level 97 mg/dL (70-99) 102 mg/dL (70-99) Lactic Acid Level 1.3 mmol/L (0.4-2.0) Calcium Level 9.7 mg/dL (8.5-10.1) 9.4 mg/dL (8.5-10.1) Troponin I Quantitative < 0.017 ng/mL (0.000-0.055) < 0.017 ng/mL (0.000-0.055) 0.022 ng/mL (0.000-0.055) Segmented Neutrophils % 65 % (35-66) Lymphocytes % 16 % (24-48) Monocytes % 8 % (0-10) Eosinophils % 10 % (0-5) Basophils % 1 % (0-3) Platelet Estimate Increased (ADEQUATE) Large Platelets Present Anisocytosis Slight Assessment/Plan Assessment/Plan IMP HYPOTENSION ESRD-MWF ANEMIA DEHYDRATION DIARRHEA-? C DIF LEUCOCYTOSIS PLAN PRESSORS ANTIBIOTIC PER ID IF NEEDED VOLUME REPLACE K ARANESQasim HOLD TODAY WILL FOLLOW D/W ID DANIELLE ACOSTA MD Dec 03, 2017 11:49
[2017-12-03] MEDS ORDERED: POTASSIUM CHLORIDE 20MEQ 50 ML IV ONE (12:00)
[2017-12-03] MEDS: MIDODRINE 5 MG TABLET PO SCH ×2 (13:08→17:42)
[2017-12-03] MEDS: HEPARIN for SUB-Q USE 5,000 UNIT/ML VIAL. SQ SCH ×2 (13:10→21:47)
--- NOTE | 2017-12-03 15:39 | PDOC ---
Provider Note Provider Note S: Pt is known to us, she was discharged last week and returned with low BP. She is currently on levophed. She was set up for outpt IR aortogram with runoff with intervention if possible this , we were consulted to be involved in case and for our recommendation regarding arranging for inpt aortogram. Her duplex last week showed degradation of waveform in the proximal popliteal arteries suggesting significant stenosis in the distal SFA or proximal popliteal artery and degradation waveform likely reflecting significant stenosis or occlusion in the right posterior tibial artery. She denies history of arterial intervention of right leg. She has a nonhealing ulcer to her right calf that has been present for about 3 months. Her only complaint currently is right big toe pain, she rates it as moderate, worsened when touched. Relevant Surgical history: bilateral prox thigh HD shunt placements, left BKA ROS + right toe pain denies proximal leg pain + wound denies fever, chills denies n/v/d O: Awake, alert, no apparent distress Respirations non labored Abdomen soft, nontender Right leg with wound to calf, nonpalpable pulses, mottled slight discoloration to right 1st and second toes. No swelling Left BKA A/P: Pt has known peripheral vascular disease and a right leg wound, I will put in new order for an aortogram with runoff with/without intervention to be done as inpt, IR to do at their convenience. We will follow up with aortogram results. CHETAN NAVARRO Dec 03, 2017 15:39
--- NOTE | 2017-12-03 17:11 | RAD ---
Exam: AP portable chest History: ICU patient. Atelectasis. Comparison: November 22, 2017. Findings: Cardiac silhouette is at the upper limits of normal for size. Aortic atherosclerosis is seen. Right internal jugular dialysis catheter is present with tip projecting at the superior aspect of the right atrium. There is a PICC line by left approach with tip projecting at the atriocaval junction. No pneumothorax identified. There is evidence of small right pleural effusion, decreased from previous study. Bibasilar densities are seen. Pulmonary vascularity appears within normal limits. Impression: 1. Interval improvement in right pleural effusion. Electronically signed by: Zachary Degroot MD (12/03/2017 5:07 PM) [facility]
[2017-12-03] MEDS: CINACALCET HCL 30 MG TABLET PO SCH (21:39)
[2017-12-03] MEDS: LACTOBACILLUS RHAMNOSUS GG 1 CAPSULE. PO SCH (21:39)
[2017-12-03] MEDS: DARBEPOETIN ALFA 60 MCG/0.3 ML DISP.SYRIN. SQ SCH (21:48)
[2017-12-04] VITALS (14 sets, daily range): BP systolic 75–137; BP diastolic 28–76
[2017-12-04] MEDS: HYDROcodone/APAP 7.5/325MG 1 TAB TABLET PO PRN ×3 (04:33→19:31)
[2017-12-04] MEDS: HEPARIN for SUB-Q USE 5,000 UNIT/ML VIAL. SQ SCH (06:01)
[2017-12-04 06:32] LABS: CREATININE 6.8 mg/dL (0.6-1.0); GFR 7.2; MAGNESIUM 1.7 mg/dL (1.8-2.4); PHOSPHORUS 7.3 mg/dL (2.6-4.7); POTASSIUM 4.6 mmol/L (3.5-5.1)
--- NOTE | 2017-12-04 07:30 | PDOC ---
SURGICAL PROGRESS NOTE Subjective She reports persistent right 1st toe pain. She denies any chest pain or shortness of breath. Vital Signs Vital Signs Date Time Temp Pulse Resp B/P (MAP) Pulse Ox O2 Delivery O2 Flow Rate FiO2 12/04/17 06:00 55 16 85/55 (65) 94 Nasal Cannula 2.0 12/04/17 04:00 98.3 98.3 I&O Intake and Output 12/04/17 07:00 Intake Total 1316 ml Output Total 2650 ml Balance -1334 ml Intake Oral 680 ml IV Total 636 ml Output Stool Total 2650 ml General: Alert, No acute distress HEENT: Atraumatic Lungs: Normal air movement Heart: Regular rate Abdomen: Soft, No tenderness, Other (Left lower abd ostomy) Extremities: No edema, Other (Healing later right lower leg ulcer, no skin breakdown on the right toes, occluded shunts in both thighs (no thrill), weak femoral pulses bilaterally) Labs Reviewed Assessment/Plan ESRD on dialysis via a tunneled right IJ line PVD s/p Left BKA Occluded bilateral thigh shunts Will plan an abdominal aortogram with runoff and possible intervention. Will leave final recommendations after angiogram completed. TAY DUMOTN MD Dec 04, 2017 07:30
[2017-12-04] MEDS: CEFTAROLINE FOSAMIL IV SCH ×2 (07:59→20:43)
[2017-12-04] MEDS: NORMAL SALINE IV SCH ×3 (07:59→20:43)
[2017-12-04] MEDS: MIDODRINE 5 MG TABLET PO SCH ×3 (07:59→19:31)
--- NOTE | 2017-12-04 08:04 | PDOC ---
Infectious Disease Note Subjective Subjective Pt is known to us, returned with low BP. Pt always has low BP. Denies any fever , chills, cp, sob,abd pain c/o rt big toe pain ROS ROS no n/v/d/sob Vital Sign Vital Signs Vital Signs Date Time Temp Pulse Resp B/P (MAP) Pulse Ox O2 Delivery O2 Flow Rate FiO2 12/04/17 07:40 Nasal Cannula 2.0 12/04/17 07:00 55 16 75/46 (56) 93 12/04/17 04:00 98.3 98.3 Physical Exam PHYSICAL EXAM GENERAL: Propped up in bed, alert, smiling HEENT: Oral cavity dry. Dentures. no conjunc petechia LUNGS: Clear HEART: S1, S2. ABDOMEN: Soft. BS +. Ostomy, nontender EXTREMITIES: Left BKA, stump. Right lateral leg wound, small 1cm, . looks clean , little sanguineous discharge, weak pulse TAXICAB COORDINATOR: Arouses easily to name, responds appropriately and follow commands SKIN: No generalized rash. rt big toe tender but not red, swollen or any wound Tunneled HDC (11/16) w/o signs of complications. Left chest PICC (11/26) clean Labs Lab Laboratory Tests Test 12/03/17 17:00 12/04/17 05:40 Clostridium difficile Toxin (PCR) Negative (Negative) Sodium Level 141 mmol/L (136-145) Potassium Level 4.6 mmol/L (3.5-5.1) Chloride Level 104 mmol/L (98-107) Carbon Dioxide Level 20 mmol/L (21-32) Anion Gap 17 (6-14) Blood Urea Nitrogen 38 mg/dL (7-20) Creatinine 6.8 mg/dL (0.6-1.0) Estimated GFR (Cockcroft-Gault) 7.2 Glucose Level 88 mg/dL (70-99) Calcium Level 9.0 mg/dL (8.5-10.1) Phosphorus Level 7.3 mg/dL (2.6-4.7) Magnesium Level 1.7 mg/dL (1.8-2.4) Objective Assessment Chronically low BP Sepsis with reported MRSA from 11/21 POA ([facility]) while on Vanc for MRSA bacteremia from previous admission -Repeat BC from 11/22 & NGTD. PHILIP 11/27 neg Hypotension - resolved Right basilar atelectasis versus infiltrate H/O High grade MRSA bacteremia previous admission from 10/31. source infected HD cath,s/p removal. Discharged on vanc -Repeat BC on 11/02, 11/04 & 11/08 positive. BC 11/13 negative -ECHO without evidence of veg H/O infected right HDC cath s/p removal on 11/01 + MRSA. -s/p interval placement of a temp [facility]/HDC on 11/01; removed. -s/p Tunneled HDC placement on 11/16. Leukocytosis - better Resp failure w/ pleural effusion s/p thoracentesis 11/07 with 1/1 liter removed pH 7.51. 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 C. diff neg 11/22 Plan Plan of Care pt has chronically low BP she alert awake and appropriate last neg BC 11/23 pt is on ceftarolin and daptomycin,, will cont supportive care DOMONIQUE HARDEN MD Dec 04, 2017 08:04
[2017-12-04 08:11] LABS: PROTHROMBIN TIME PATIENT 23.4 SEC (11.7-14.0)
[2017-12-04] MEDS ORDERED: LIDOCAINE WITH 8.4% SOD BICARB 3 ML DISP.SYRIN. ONE (08:38)
[2017-12-04] MEDS ORDERED: IODIXANOL 320 MG/ML 100 ML VIAL. ONE (08:38)
[2017-12-04] MEDS ORDERED: HEPARIN for ARTERIAL LINE 0 ML ONE (08:39)
[2017-12-04] MEDS: MULTIVITAMIN with MINERAL TABLET. PO SCH (09:00)
[2017-12-04 09:44] LABS: PROTHROMBIN TIME PATIENT 23.1 SEC (11.7-14.0)
--- NOTE | 2017-12-04 11:18 | PDOC ---
Renal-Progress Notes Subjective Notes Notes NO NEW COMPLAINTS History of Present Illness Hx of present illness STABLE Vitals Vitals Vital Signs Date Time Temp Pulse Resp B/P (MAP) Pulse Ox O2 Delivery O2 Flow Rate FiO2 12/04/17 11:00 97.5 57 16 137/70 (92) 93 Room Air 97.5 12/04/17 08:00 2.0 Weight Weight [ ] I.O. Intake and Output Intake and Output 12/04/17 07:00 Intake Total 1316 ml Output Total 2650 ml Balance -1334 ml Intake Oral 680 ml IV Total 636 ml Output Stool Total 2650 ml Labs Labs Laboratory Tests Test 12/03/17 17:00 12/04/17 05:40 12/04/17 07:50 12/04/17 09:00 Clostridium difficile Toxin (PCR) Negative (Negative) Sodium Level 141 mmol/L (136-145) Potassium Level 4.6 mmol/L (3.5-5.1) Chloride Level 104 mmol/L (98-107) Carbon Dioxide Level 20 mmol/L (21-32) Anion Gap 17 (6-14) Blood Urea Nitrogen 38 mg/dL (7-20) Creatinine 6.8 mg/dL (0.6-1.0) Estimated GFR (Cockcroft-Gault) 7.2 Glucose Level 88 mg/dL (70-99) Calcium Level 9.0 mg/dL (8.5-10.1) Phosphorus Level 7.3 mg/dL (2.6-4.7) Magnesium Level 1.7 mg/dL (1.8-2.4) Prothrombin Time 23.4 SEC (11.7-14.0) 23.1 SEC (11.7-14.0) Prothromb Time International Ratio 2.2 (0.8-1.1) 2.1 (0.8-1.1) Activated Partial Thromboplast Time 66 SEC (24-38) Review of Systems Constitutional: yes: weakness, alert, oriented Ears/Nose/Throat: Yes: no symptom reported Eyes: Yes: no symptom reported Pulmonary: Yes no symptom reported Cardiovascular: Yes no symptom reported Gastrointestional: Yes: no symptom reported Genitourinary: Yes: no symptom reported Musculoskeletal: Yes: no symptom reported Skin: Yes no symptom reported Psychiatric/Neurological: Yes: no symptom reported Endocrine: Yes: no symptom reported Physical Exam General Appearance: no apparent distress Skin: warm Respiratory: decreased breath sounds Heart: S1S2 Abdomen: soft, bowel sounds present Genitourinary: bladder flat Extremities: pulses present Neurology: alert Musculoskeletal: Other Assessment Assessment IMP HYPOTENSION-BETTER ESRD ANEMIA RECENT SEPSIS PLAN HD TOMORROW PRESSORS NEEDED ABX PER ID DANIELLE ACOSTA MD Dec 04, 2017 11:18
[2017-12-04] MEDS: DAPTOMYCIN IV SCH (11:45)
[2017-12-04] MEDS: sulfaSALAzine 500 MG TABLET PO SCH ×2 (13:07→21:44)
[2017-12-04] MEDS: LACTOBACILLUS RHAMNOSUS GG 1 CAPSULE. PO SCH (13:09)
[2017-12-04] MEDS: FOLIC/VIT B COMP W-C (RENAL) TABLET. PO SCH (13:09)
--- NOTE | 2017-12-04 14:13 | PDOC ---
PROGRESS NOTES Chief Complaint Chief Complaint Diarrhea Hypotension H/o MRSA bacteremia H/o chronic renal failure H/o HTN H/o CAD History of Present Illness History of Present Illness Pt seen and examined in ICU Appears comfortable in chair DW RN Pt has no current complaints. Vitals Vitals Vital Signs Date Time Temp Pulse Resp B/P (MAP) Pulse Ox O2 Delivery O2 Flow Rate FiO2 12/04/17 13:58 16 93 Room Air 12/04/17 13:09 57 104/70 12/04/17 11:00 97.5 97.5 12/04/17 08:00 2.0 Physical Exam Physical Exam GENERAL: Sitting in chair, smiling HEENT: Oral cavity dry. Dentures. no conjunc petechia LUNGS: Clear HEART: S1, S2. ABDOMEN: Soft. BS +. Ostomy, nontender EXTREMITIES: Left BKA, stump. Right lateral leg wound, small 1cm, . 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 rt big toe tender but not red, swollen or any wound Tunneled HDC (11/16) w/o signs of complications. Left chest PICC (11/26) clean General: Alert, Cooperative, No acute distress Heart: Regular rate, No murmurs Lungs: Clear Abdomen: Soft, No tenderness, Other (Left lower abd ostomy) Extremities: No edema, Other (Healing later right lower leg ulcer, no skin breakdown on the right toes, occluded shunts in both thighs (no thrill), weak femoral pulses bilaterally) Skin: No breakdown, No significant lesion Labs LABS Laboratory Tests Test 12/03/17 17:00 12/04/17 05:40 12/04/17 07:50 12/04/17 09:00 Clostridium difficile Toxin (PCR) Negative (Negative) Sodium Level 141 mmol/L (136-145) Potassium Level 4.6 mmol/L (3.5-5.1) Chloride Level 104 mmol/L (98-107) Carbon Dioxide Level 20 mmol/L (21-32) Anion Gap 17 (6-14) Blood Urea Nitrogen 38 mg/dL (7-20) Creatinine 6.8 mg/dL (0.6-1.0) Estimated GFR (Cockcroft-Gault) 7.2 Glucose Level 88 mg/dL (70-99) Calcium Level 9.0 mg/dL (8.5-10.1) Phosphorus Level 7.3 mg/dL (2.6-4.7) Magnesium Level 1.7 mg/dL (1.8-2.4) Prothrombin Time 23.4 SEC (11.7-14.0) 23.1 SEC (11.7-14.0) Prothromb Time International Ratio 2.2 (0.8-1.1) 2.1 (0.8-1.1) Activated Partial Thromboplast Time 66 SEC (24-38) Review of Systems Review of Systems Pt denies SOB, cough, chest pain, and abdominal pain. Assessment and Plan Assessmemt and Plan Assessment: Diarrhea Hypotension H/o MRSA bacteremia H/o chronic renal failure H/o HTN H/o CAD Plan: ICU monitoring Cont IV ABx HD per neph Vasc runoff on hold secondary to elevated INR Recheck INR Monitor labs Home meds Comment Review of Relevant I have reviewed the following items olivia (where applicable) has been applied. Labs Laboratory Tests Test 12/02/17 23:05 12/03/17 01:00 12/03/17 02:45 12/03/17 05:35 White Blood Count 12.9 x10^3/uL (4.0-11.0) 14.6 x10^3/uL (4.0-11.0) Red Blood Count 3.02 x10^6/uL (3.50-5.40) 3.58 x10^6/uL (3.50-5.40) Hemoglobin 7.9 g/dL (12.0-15.5) 9.3 g/dL (12.0-15.5) Hematocrit 25.0 % (36.0-47.0) 29.2 % (36.0-47.0) Mean Corpuscular Volume 83 fL (79-100) 82 fL (79-100) Mean Corpuscular Hemoglobin 26 pg (25-35) 26 pg (25-35) Mean Corpuscular Hemoglobin Concent 32 g/dL (31-37) 32 g/dL (31-37) Red Cell Distribution Width 19.5 % (11.5-14.5) 19.4 % (11.5-14.5) Platelet Count 333 x10^3/uL (140-400) 412 x10^3/uL (140-400) Neutrophils (%) (Auto) 66 % (31-73) 63 % (31-73) Lymphocytes (%) (Auto) 16 % (24-48) 17 % (24-48) Monocytes (%) (Auto) 12 % (0-9) 11 % (0-9) Eosinophils (%) (Auto) 6 % (0-3) 8 % (0-3) Basophils (%) (Auto) 1 % (0-3) 1 % (0-3) Neutrophils # (Auto) 8.5 x10^3uL (1.8-7.7) 9.2 x10^3uL (1.8-7.7) Lymphocytes # (Auto) 2.1 x10^3/uL (1.0-4.8) 2.5 x10^3/uL (1.0-4.8) Monocytes # (Auto) 1.5 x10^3/uL (0.0-1.1) 1.5 x10^3/uL (0.0-1.1) Eosinophils # (Auto) 0.7 x10^3/uL (0.0-0.7) 1.2 x10^3/uL (0.0-0.7) Basophils # (Auto) 0.1 x10^3/uL (0.0-0.2) 0.2 x10^3/uL (0.0-0.2) Sodium Level 140 mmol/L (136-145) 141 mmol/L (136-145) Potassium Level 3.4 mmol/L (3.5-5.1) 3.4 mmol/L (3.5-5.1) Chloride Level 101 mmol/L (98-107) 104 mmol/L (98-107) Carbon Dioxide Level 26 mmol/L (21-32) 22 mmol/L (21-32) Anion Gap 13 (6-14) 15 (6-14) Blood Urea Nitrogen 27 mg/dL (7-20) 29 mg/dL (7-20) Creatinine 5.4 mg/dL (0.6-1.0) 5.6 mg/dL (0.6-1.0) Estimated GFR (Cockcroft-Gault) 9.3 9.0 Glucose Level 97 mg/dL (70-99) 102 mg/dL (70-99) Lactic Acid Level 1.3 mmol/L (0.4-2.0) Calcium Level 9.7 mg/dL (8.5-10.1) 9.4 mg/dL (8.5-10.1) Troponin I Quantitative < 0.017 ng/mL (0.000-0.055) < 0.017 ng/mL (0.000-0.055) 0.022 ng/mL (0.000-0.055) Nasal Screen MRSA (PCR) Negative (Negative) Segmented Neutrophils % 65 % (35-66) Lymphocytes % 16 % (24-48) Monocytes % 8 % (0-10) Eosinophils % 10 % (0-5) Basophils % 1 % (0-3) Platelet Estimate Increased (ADEQUATE) Large Platelets Present Anisocytosis Slight Test 12/03/17 17:00 12/04/17 05:40 12/04/17 07:50 12/04/17 09:00 Clostridium difficile Toxin (PCR) Negative (Negative) Sodium Level 141 mmol/L (136-145) Potassium Level 4.6 mmol/L (3.5-5.1) Chloride Level 104 mmol/L (98-107) Carbon Dioxide Level 20 mmol/L (21-32) Anion Gap 17 (6-14) Blood Urea Nitrogen 38 mg/dL (7-20) Creatinine 6.8 mg/dL (0.6-1.0) Estimated GFR (Cockcroft-Gault) 7.2 Glucose Level 88 mg/dL (70-99) Calcium Level 9.0 mg/dL (8.5-10.1) Phosphorus Level 7.3 mg/dL (2.6-4.7) Magnesium Level 1.7 mg/dL (1.8-2.4) Prothrombin Time 23.4 SEC (11.7-14.0) 23.1 SEC (11.7-14.0) Prothromb Time International Ratio 2.2 (0.8-1.1) 2.1 (0.8-1.1) Activated Partial Thromboplast Time 66 SEC (24-38) Laboratory Tests Test 12/03/17 17:00 12/04/17 05:40 12/04/17 07:50 12/04/17 09:00 Clostridium difficile Toxin (PCR) Negative (Negative) Sodium Level 141 mmol/L (136-145) Potassium Level 4.6 mmol/L (3.5-5.1) Chloride Level 104 mmol/L (98-107) Carbon Dioxide Level 20 mmol/L (21-32) Anion Gap 17 (6-14) Blood Urea Nitrogen 38 mg/dL (7-20) Creatinine 6.8 mg/dL (0.6-1.0) Estimated GFR (Cockcroft-Gault) 7.2 Glucose Level 88 mg/dL (70-99) Calcium Level 9.0 mg/dL (8.5-10.1) Phosphorus Level 7.3 mg/dL (2.6-4.7) Magnesium Level 1.7 mg/dL (1.8-2.4) Prothrombin Time 23.4 SEC (11.7-14.0) 23.1 SEC (11.7-14.0) Prothromb Time International Ratio 2.2 (0.8-1.1) 2.1 (0.8-1.1) Activated Partial Thromboplast Time 66 SEC (24-38) Medications Current Medications Sodium Chloride 500 ml @ 250 mls/hr 1X ONCE IV Last administered on at 23:00; Start 12/02/17 at 23:15; Stop 12/03/17 at 01:14; Status DC Norepinephrine Bitartrate 250 ml @ 0 mls/hr 1X ONCE IV Last administered on at 23:27; Start 12/02/17 at 23:30; Stop 12/02/17 at 23:31; Status DC Ondansetron HCl (Zofran) 4 mg PRN Q8HRS PRN IV NAUSEA/VOMITING; Start at 23:30; Stop 12/03/17 at 23:29; Status DC Morphine Sulfate (Morphine Sulfate) 4 mg PRN Q2HR PRN IV PAIN Last administered on 12/03/17at 01:16; Start 12/02/17 at 23:30; Stop 12/03/17 at 23 :29; Status DC Acetaminophen (Tylenol) 650 mg PRN Q4HRS PRN PO FEVER; Start 12/02/17 at 23:30 ; Stop 12/03/17 at 23:29; Status DC Ceftaroline Fosamil 200 mg/ Sodium Chloride 250 ml @ 250 mls/hr Q12HR IV Last administered on 12/04/17at 07:59; Start 12/03/17 at 00:30 Norepinephrine Bitartrate 250 ml @ 1.875 mls/ hr CONT PRN IV SEE I/O RECORD; Start 12/03/17 at 01:15 Pharmacy Consult (C.diff Med Screen By Rx) 1 each 1X ONCE MC ; Start 12/03/17 at 09:00; Stop 12/03/17 at 09:01; Status DC Lactobacillus Rhamnosus (Culturelle) 1 cap BID PO Last administered on at 13:09; Start 12/03/17 at 21:00 Acetaminophen (Tylenol Supp) 650 mg PRN Q6HRS PRN DE MILD PAIN / TEMP; Start 12/03/17 at 10:45 Cinacalcet (Sensipar) 30 mg HS PO Last administered on 12/03/17at 21:39; Start 12/03/17 at 21:00 Diphenoxylate HCl/ Atropine (Lomotil) 1 tab PRN Q8HRS PRN PO DIARRHEA; Start 12/03/17 at 10:45 Vitamin B Complex/ Vitamin C (Kassie-Luann) 1 tab DAILY PO Last administered on at 13:09; Start 12/03/17 at 11:30 Acetaminophen/ Hydrocodone Bitart (Lortab 7.5/325) 1 tab PRN Q8HRS PRN PO MODERATE-SEVERE PAIN Last administered on 12/04/17at 13:07; Start 12/03/17 at 10:45 Artificial Tears (Artificial Tears) 1 drop PRN Q15MIN PRN OU DRY EYE; Start at 10:45 Triamcinolone Acetonide (Kenalog) 1 hanh PRN Q8HRS PRN TP RASH; Start 12/03/17 at 10:45 Midodrine (Proamatine) 10 mg [id number] PO Last administered on 12/04/17at 13:09; Start 12/03/17 at 13:00 Multivitamins (Thera M Plus) 1 tab DAILY PO Last administered on 12/04/17at 09: 00; Start 12/04/17 at 09:00 Sulfasalazine (Azulfidine) 500 mg BID PO Last administered on 12/04/17at 13:07 ; Start 12/03/17 at 11:30 Potassium Chloride/Water 50 ml @ 50 mls/hr 1X ONCE IV Last administered on at 13:09; Start 12/03/17 at 12:00; Stop 12/03/17 at 12:59; Status DC Darbepoetin Justin (Aranesp) 60 mcg WEEKLYHS SQ Last administered on 12/03/17at 21:48; Start 12/03/17 at 21:00 Heparin Sodium (Porcine) (Heparin Sodium) 5,000 unit Q8HRS SQ Last administered on 12/04/17at 06:01; Start 12/03/17 at 14:00; Stop 12/04/17 at 13 :44; Status DC Daptomycin 250 mg/ Sodium Chloride 50 ml @ 100 mls/hr Q48H IV Last administered on 12/04/17at 11:45; Start 12/04/17 at 09:00 Iodixanol (Visipaque 320) 100 ml STK-MED ONCE .ROUTE ; Start 12/04/17 at 08:38 ; Stop 12/04/17 at 08:39; Status DC Lidocaine/Sodium Bicarbonate (Buffered Lidocaine 1%) 3 ml STK-MED ONCE .ROUTE ; Start 12/04/17 at 08:38; Stop 12/04/17 at 08:39; Status DC Heparin Sodium/ Sodium Chloride 0 ml @ As Directed STK-MED ONCE .ROUTE ; Start 12/04/17 at 08:39; Stop 12/04/17 at 08:40; Status DC Active Scripts Active Midodrine Hcl 5 Mg Tablet 10 Mg PO [id number] Artificial Tears (Polyvinyl Alcohol) 15 Ml Drops 1 Drop OU PRN Q15MIN PRN 30 Days Acetaminophen Supp (Acetaminophen) 650 Mg Supp.rect 650 Mg DE PRN Q6HRS PRN 30 Days Hydrocodone-Apap 7.5-325 (Hydrocodone Bit/Acetaminophen) 1 Each Tablet 1 Tab PO PRN Q8HRS PRN 7 Days Reported Multivitamins (Multivitamin) 1 Each Tablet 1 Tab PO DAILY Sensipar (Cinacalcet Hcl) 30 Mg Tablet 1 Tab PO HS Azulfidine (Sulfasalazine) 500 Mg Tablet 500 Mg PO BID Lomotil Tablet (Diphenoxylate Hcl/Atropine) 1 Each Tablet 1 Tab PO PRN Q8HRS Nephro-Luann Tablet (Folic Acid/Vitamin B Comp W-C) 0.8 Mg Tablet 1 Tab PO DAILY Triamcinolone Acetonide 0.1% Cream (Triamcinolone Acetonide) 15 Gm Cream..g. 1 Hanh TP PRN Q8HRS apply to bilat legs topically as needed for skin care Vitals/I & O Vital Sign - Last 24 Hours 12/03/17 12/03/17 12/03/17 12/03/17 15:00 16:00 17:00 17:42 Temp 98.3 98.3 Pulse 63 57 59 66 Resp 16 16 16 B/P (MAP) 111/79 (90) 118/70 (86) 111/79 (90) 115/58 Pulse Ox 95 97 93 O2 Delivery Room Air Room Air Room Air 12/03/17 12/03/17 12/03/17 12/03/17 18:00 19:00 20:00 20:00 Temp 98.5 98.5 Pulse 67 58 57 Resp 16 16 16 B/P (MAP) 100/70 (80) 84/48 (60) 110/56 (74) Pulse Ox 93 96 97 O2 Delivery Room Air Room Air Nasal Cannula Room Air O2 Flow Rate 2.0 12/03/17 12/03/17 12/03/17 12/03/17 21:01 21:40 22:00 23:00 Pulse 58 65 57 Resp 16 14 16 16 B/P (MAP) 110/52 (71) 98/49 (65) 85/50 (62) Pulse Ox 97 97 97 93 O2 Delivery Room Air Nasal Cannula Room Air Nasal Cannula O2 Flow Rate 2.0 2.0 12/03/17 12/03/17 12/04/17 12/04/17 23:59 23:59 01:00 02:00 Temp 98.6 98.6 Pulse 53 58 50 Resp 16 16 16 B/P (MAP) 81/51 (61) 85/40 (55) 100/53 (69) Pulse Ox 92 93 93 O2 Delivery Nasal Cannula Nasal Cannula Nasal Cannula Nasal Cannula O2 Flow Rate 2.0 2.0 2.0 2.0 12/04/17 12/04/17 12/04/17 12/04/17 03:00 04:00 04:00 04:33 Temp 98.3 98.3 Pulse 55 51 Resp 16 18 17 B/P (MAP) 99/40 (59) 80/59 (66) Pulse Ox 93 96 93 O2 Delivery Nasal Cannula Nasal Cannula Nasal Cannula Nasal Cannula O2 Flow Rate 2.0 2.0 2.0 2.0 12/04/17 12/04/17 12/04/17 12/04/17 05:00 05:33 06:00 07:00 Pulse 53 55 55 Resp 16 16 16 B/P (MAP) 92/76 (81) 85/55 (65) 75/46 (56) Pulse Ox 93 94 93 O2 Delivery Nasal Cannula Nasal Cannula Nasal Cannula O2 Flow Rate 2.0 2.0 2.0 2.0 12/04/17 12/04/17 12/04/17 12/04/17 07:40 07:59 08:00 09:00 Pulse 55 59 56 Resp 16 16 B/P (MAP) 75/46 92/46 (61) 94/50 (65) Pulse Ox 93 94 O2 Delivery Nasal Cannula Nasal Cannula Room Air O2 Flow Rate 2.0 2.0 12/04/17 12/04/17 12/04/17 12/04/17 10:00 11:00 13:07 13:09 Temp 97.5 97.5 Pulse 57 57 57 Resp 16 16 16 B/P (MAP) 127/60 (82) 137/70 (92) 104/70 Pulse Ox 93 93 93 O2 Delivery Room Air Room Air Room Air 12/04/17 13:58 Resp 16 Pulse Ox 93 O2 Delivery Room Air Intake and Output 12/03/17 12/03/17 12/04/17 15:00 23:00 07:00 Intake Total 660 ml 406 ml 250 ml Output Total 1600 ml 1050 ml Balance -940 ml 406 ml -800 ml Nutrition Consultation Dietary Evaluation: Recommendations by RD: Protein supplementation Comments: REC Ensure pudding (buttercotch) w/lunch and dinner REC Magic cup (orange) w/lunch and dinner Continue w/MVI and kassie-luann Expected Outcomes/Goals: PO intake to meet >75% est needs Malnutrition Findings: Body Fat Depletion (Non Severe: Mild Depletion Weight Status: Underweight PORSCHE MCMAHAN III DO Dec 04, 2017 14:13
[2017-12-04] MEDS: CINACALCET HCL 30 MG TABLET PO SCH (20:43)
[2017-12-05] VITALS (11 sets, daily range): BP systolic 92–137; BP diastolic 27–63
[2017-12-05 06:34] LABS: HEMATOCRIT 25.1 % (36.0-47.0); HEMOGLOBIN 7.7 g/dL (12.0-15.5); RED CELL DISTRIBUTION WIDTH 19.7 % (11.5-14.5); WHITE BLOOD COUNT 12.4 x10^3/uL (4.0-11.0)
[2017-12-05 06:42] LABS: CREATININE 8.2 mg/dL (0.6-1.0); GFR 5.8; POTASSIUM 4.5 mmol/L (3.5-5.1)
[2017-12-05] MEDS: MIDODRINE 5 MG TABLET PO SCH ×3 (07:00→18:00)
[2017-12-05 07:16] LABS: PROTHROMBIN TIME PATIENT 23.2 SEC (11.7-14.0)
[2017-12-05] MEDS ORDERED: IV NORMAL SALINE 1000ML BAG 1,000 ML IV PRN ×2 (08:51)
[2017-12-05] MEDS: CEFTAROLINE FOSAMIL IV SCH ×2 (09:00→21:50)
[2017-12-05] MEDS: NORMAL SALINE IV SCH ×2 (09:00→21:50)
[2017-12-05] MEDS ORDERED: DIALYSIS PATIENT. MC PRN ×2 (09:00)
--- NOTE | 2017-12-05 09:07 | PDOC ---
PROGRESS NOTES Subjective Subjective Pt was to go to IR today for aortogram with runoff, however her INR is elevated at 2.1. She does not report a history of taking coumadin and she also denies a history of liver problems. Her only current complaint is dull pain to her right big toe, worse with touching. This is unchanged from previously. Objective Objective Vital Signs Date Time Temp Pulse Resp B/P (MAP) Pulse Ox O2 Delivery O2 Flow Rate FiO2 12/05/17 07:00 97.5 63 18 137/63 (87) 94 Room Air 97.5 12/04/17 20:00 2.0 Intake and Output 12/05/17 06:59 Intake Total 1100 ml Output Total 1450 ml Balance -350 ml Intake Oral 800 ml IV Total 300 ml Output Stool Total 1450 ml Physical Exam Physical Exam Awake, alert, in no apparent distress Respirations non labored Wound to right calf with dressing clean dry and intact Right big toe tender to touch. Skin dry, no rash noted Plan Plan of Care Pt for dialysis today, IR aortogram postponed due to elevated INR. Non-coumadin related elevated INR, possible liver cause? RN reports Dr. Nuñez is planning to treat the elevated INR with FFP and Vit K. We will follow results and anticipate IR aortogram tomorrow. Pt to be NPO after midnight. Can resume prophylactic heparin. Comment Review of Relevant I have reviewed the following items olivia (where applicable) has been applied. Labs Laboratory Tests Test 12/03/17 17:00 12/04/17 05:40 12/04/17 07:50 12/04/17 09:00 Clostridium difficile Toxin (PCR) Negative (Negative) Sodium Level 141 mmol/L (136-145) Potassium Level 4.6 mmol/L (3.5-5.1) Chloride Level 104 mmol/L (98-107) Carbon Dioxide Level 20 mmol/L (21-32) Anion Gap 17 (6-14) Blood Urea Nitrogen 38 mg/dL (7-20) Creatinine 6.8 mg/dL (0.6-1.0) Estimated GFR (Cockcroft-Gault) 7.2 Glucose Level 88 mg/dL (70-99) Calcium Level 9.0 mg/dL (8.5-10.1) Phosphorus Level 7.3 mg/dL (2.6-4.7) Magnesium Level 1.7 mg/dL (1.8-2.4) Prothrombin Time 23.4 SEC (11.7-14.0) 23.1 SEC (11.7-14.0) Prothromb Time International Ratio 2.2 (0.8-1.1) 2.1 (0.8-1.1) Activated Partial Thromboplast Time 66 SEC (24-38) Test 12/05/17 05:45 White Blood Count 12.4 x10^3/uL (4.0-11.0) Red Blood Count 3.00 x10^6/uL (3.50-5.40) Hemoglobin 7.7 g/dL (12.0-15.5) Hematocrit 25.1 % (36.0-47.0) Mean Corpuscular Volume 84 fL (79-100) Mean Corpuscular Hemoglobin 26 pg (25-35) Mean Corpuscular Hemoglobin Concent 31 g/dL (31-37) Red Cell Distribution Width 19.7 % (11.5-14.5) Platelet Count 308 x10^3/uL (140-400) Prothrombin Time 23.2 SEC (11.7-14.0) Prothromb Time International Ratio 2.1 (0.8-1.1) Activated Partial Thromboplast Time 42 SEC (24-38) Sodium Level 145 mmol/L (136-145) Potassium Level 4.5 mmol/L (3.5-5.1) Chloride Level 105 mmol/L (98-107) Carbon Dioxide Level 19 mmol/L (21-32) Anion Gap 21 (6-14) Blood Urea Nitrogen 45 mg/dL (7-20) Creatinine 8.2 mg/dL (0.6-1.0) Estimated GFR (Cockcroft-Gault) 5.8 Glucose Level 78 mg/dL (70-99) Calcium Level 8.0 mg/dL (8.5-10.1) Laboratory Tests Test 12/04/17 09:00 12/05/17 05:45 Prothrombin Time 23.1 SEC (11.7-14.0) 23.2 SEC (11.7-14.0) Prothromb Time International Ratio 2.1 (0.8-1.1) 2.1 (0.8-1.1) White Blood Count 12.4 x10^3/uL (4.0-11.0) Red Blood Count 3.00 x10^6/uL (3.50-5.40) Hemoglobin 7.7 g/dL (12.0-15.5) Hematocrit 25.1 % (36.0-47.0) Mean Corpuscular Volume 84 fL (79-100) Mean Corpuscular Hemoglobin 26 pg (25-35) Mean Corpuscular Hemoglobin Concent 31 g/dL (31-37) Red Cell Distribution Width 19.7 % (11.5-14.5) Platelet Count 308 x10^3/uL (140-400) Activated Partial Thromboplast Time 42 SEC (24-38) Sodium Level 145 mmol/L (136-145) Potassium Level 4.5 mmol/L (3.5-5.1) Chloride Level 105 mmol/L (98-107) Carbon Dioxide Level 19 mmol/L (21-32) Anion Gap 21 (6-14) Blood Urea Nitrogen 45 mg/dL (7-20) Creatinine 8.2 mg/dL (0.6-1.0) Estimated GFR (Cockcroft-Gault) 5.8 Glucose Level 78 mg/dL (70-99) Calcium Level 8.0 mg/dL (8.5-10.1) Medications Current Medications Sodium Chloride 500 ml @ 250 mls/hr 1X ONCE IV Last administered on at 23:00; Start 12/02/17 at 23:15; Stop 12/03/17 at 01:14; Status DC Norepinephrine Bitartrate 250 ml @ 0 mls/hr 1X ONCE IV Last administered on at 23:27; Start 12/02/17 at 23:30; Stop 12/02/17 at 23:31; Status DC Ondansetron HCl (Zofran) 4 mg PRN Q8HRS PRN IV NAUSEA/VOMITING; Start at 23:30; Stop 12/03/17 at 23:29; Status DC Morphine Sulfate (Morphine Sulfate) 4 mg PRN Q2HR PRN IV PAIN Last administered on 12/03/17at 01:16; Start 12/02/17 at 23:30; Stop 12/03/17 at 23 :29; Status DC Acetaminophen (Tylenol) 650 mg PRN Q4HRS PRN PO FEVER; Start 12/02/17 at 23:30 ; Stop 12/03/17 at 23:29; Status DC Ceftaroline Fosamil 200 mg/ Sodium Chloride 250 ml @ 250 mls/hr Q12HR IV Last administered on 12/04/17at 20:43; Start 12/03/17 at 00:30 Norepinephrine Bitartrate 250 ml @ 1.875 mls/ hr CONT PRN IV SEE I/O RECORD; Start 12/03/17 at 01:15; Stop 12/04/17 at 15:30; Status DC Pharmacy Consult (C.diff Med Screen By Rx) 1 each 1X ONCE [facility] ; Start 12/03/17 at 09:00; Stop 12/03/17 at 09:01; Status DC Lactobacillus Rhamnosus (Culturelle) 1 cap BID PO Last administered on at 13:09; Start 12/03/17 at 21:00; Stop 12/04/17 at 14:23; Status DC Acetaminophen (Tylenol Supp) 650 mg PRN Q6HRS PRN DC MILD PAIN / TEMP; Start 12/03/17 at 10:45 Cinacalcet (Sensipar) 30 mg HS PO Last administered on 12/04/17at 20:43; Start 12/03/17 at 21:00 Diphenoxylate HCl/ Atropine (Lomotil) 1 tab PRN Q8HRS PRN PO DIARRHEA; Start 12/03/17 at 10:45 Vitamin B Complex/ Vitamin C (Yaneth-Nabeel) 1 tab DAILY PO Last administered on at 13:09; Start 12/03/17 at 11:30 Acetaminophen/ Hydrocodone Bitart (Lortab 7.5/325) 1 tab PRN Q8HRS PRN PO MODERATE-SEVERE PAIN Last administered on 12/04/17at 19:31; Start 12/03/17 at 10:45 Artificial Tears (Artificial Tears) 1 drop PRN Q15MIN PRN OU DRY EYE; Start at 10:45 Triamcinolone Acetonide (Kenalog) 1 hanh PRN Q8HRS PRN TP RASH; Start 12/03/17 at 10:45 Midodrine (Proamatine) 10 mg [id number] PO Last administered on 12/04/17at 19:31; Start 12/03/17 at 13:00 Multivitamins (Thera M Plus) 1 tab DAILY PO Last administered on 12/04/17at 09: 00; Start 12/04/17 at 09:00 Sulfasalazine (Azulfidine) 500 mg BID PO Last administered on 12/04/17at 21:44 ; Start 12/03/17 at 11:30 Potassium Chloride/Water 50 ml @ 50 mls/hr 1X ONCE IV Last administered on at 13:09; Start 12/03/17 at 12:00; Stop 12/03/17 at 12:59; Status DC Darbepoetin Justin (Aranesp) 60 mcg WEEKLYHS SQ Last administered on 12/03/17at 21:48; Start 12/03/17 at 21:00 Heparin Sodium (Porcine) (Heparin Sodium) 5,000 unit Q8HRS SQ Last administered on 12/04/17at 06:01; Start 12/03/17 at 14:00; Stop 12/04/17 at 13 :44; Status DC Daptomycin 250 mg/ Sodium Chloride 50 ml @ 100 mls/hr Q48H IV Last administered on 12/04/17at 11:45; Start 12/04/17 at 09:00 Iodixanol (Visipaque 320) 100 ml STK-MED ONCE .ROUTE ; Start 12/04/17 at 08:38 ; Stop 12/04/17 at 08:39; Status DC Lidocaine/Sodium Bicarbonate (Buffered Lidocaine 1%) 3 ml STK-MED ONCE .ROUTE ; Start 12/04/17 at 08:38; Stop 12/04/17 at 08:39; Status DC Heparin Sodium/ Sodium Chloride 0 ml @ As Directed STK-MED ONCE .ROUTE ; Start 12/04/17 at 08:39; Stop 12/04/17 at 08:40; Status DC Active Scripts Active Midodrine Hcl 5 Mg Tablet 10 Mg PO [id number] Artificial Tears (Polyvinyl Alcohol) 15 Ml Drops 1 Drop OU PRN Q15MIN PRN 30 Days Acetaminophen Supp (Acetaminophen) 650 Mg Supp.rect 650 Mg DC PRN Q6HRS PRN 30 Days Hydrocodone-Apap 7.5-325 (Hydrocodone Bit/Acetaminophen) 1 Each Tablet 1 Tab PO PRN Q8HRS PRN 7 Days Reported Multivitamins (Multivitamin) 1 Each Tablet 1 Tab PO DAILY Sensipar (Cinacalcet Hcl) 30 Mg Tablet 1 Tab PO HS Azulfidine (Sulfasalazine) 500 Mg Tablet 500 Mg PO BID Lomotil Tablet (Diphenoxylate Hcl/Atropine) 1 Each Tablet 1 Tab PO PRN Q8HRS Nephro-Nabeel Tablet (Folic Acid/Vitamin B Comp W-C) 0.8 Mg Tablet 1 Tab PO DAILY Triamcinolone Acetonide 0.1% Cream (Triamcinolone Acetonide) 15 Gm Cream..g. 1 Hanh TP PRN Q8HRS apply to bilat legs topically as needed for skin care Vitals/I & O Vital Sign - Last 24 Hours 12/04/17 12/04/17 12/04/17 12/04/17 09:00 10:00 11:00 13:07 Temp 97.5 97.5 Pulse 56 57 57 Resp 16 16 16 16 B/P (MAP) 94/50 (65) 127/60 (82) 137/70 (92) Pulse Ox 94 93 93 93 O2 Delivery Room Air Room Air Room Air Room Air 12/04/17 12/04/17 12/04/17 12/04/17 13:09 14:08 19:31 19:31 Pulse 57 65 65 Resp 16 B/P (MAP) 104/70 104/73 (83) 104/73 Pulse Ox 93 93 O2 Delivery Room Air Room Air 12/04/17 12/04/17 12/04/17 12/04/17 19:52 20:00 20:31 23:10 Temp 97.8 97.6 97.8 97.6 Pulse 58 58 Resp 20 16 B/P (MAP) 107/34 (58) 97/28 (51) Pulse Ox 92 94 94 O2 Delivery Nasal Cannula Room Air Room Air O2 Flow Rate 2.0 12/05/17 12/05/17 12/05/17 03:46 04:00 07:00 Temp 98.8 97.5 98.8 97.5 Pulse 55 63 Resp 16 18 B/P (MAP) 100/27 (51) 132/38 (69) 137/63 (87) Pulse Ox 97 94 O2 Delivery Room Air Room Air Intake and Output 12/04/17 12/04/17 12/05/17 14:59 22:59 06:59 Intake Total 560 ml 540 ml Output Total 950 ml 500 ml Balance -390 ml 40 ml CHETAN NAVARRO Dec 05, 2017 09:07
[2017-12-05] MEDS: MULTIVITAMIN with MINERAL TABLET. PO SCH (09:19)
[2017-12-05] MEDS: FOLIC/VIT B COMP W-C (RENAL) TABLET. PO SCH (09:19)
[2017-12-05] MEDS: sulfaSALAzine 500 MG TABLET PO SCH ×2 (09:20→20:57)
--- NOTE | 2017-12-05 09:41 | PDOC ---
Infectious Disease Note Subjective Subjective feeling good ROS ROS no n/v/d/fever Vital Sign Vital Signs Vital Signs Date Time Temp Pulse Resp B/P (MAP) Pulse Ox O2 Delivery O2 Flow Rate FiO2 12/05/17 07:00 97.5 63 18 137/63 (87) 94 Room Air 97.5 12/04/17 20:00 2.0 Physical Exam PHYSICAL EXAM GENERAL: Sitting in chair, smiling HEENT: Oral cavity dry. Dentures. no conjunc petechia LUNGS: Clear HEART: S1, S2. ABDOMEN: Soft. BS +. Ostomy, nontender EXTREMITIES: Left BKA, stump. Right lateral leg wound, small 1cm, . 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 rt big toe tender but not red, swollen or any wound Tunneled HDC (11/16) w/o signs of complications. Left chest PICC (11/26) clean Labs Lab Laboratory Tests Test 12/05/17 05:45 White Blood Count 12.4 x10^3/uL (4.0-11.0) Red Blood Count 3.00 x10^6/uL (3.50-5.40) Hemoglobin 7.7 g/dL (12.0-15.5) Hematocrit 25.1 % (36.0-47.0) Mean Corpuscular Volume 84 fL (79-100) Mean Corpuscular Hemoglobin 26 pg (25-35) Mean Corpuscular Hemoglobin Concent 31 g/dL (31-37) Red Cell Distribution Width 19.7 % (11.5-14.5) Platelet Count 308 x10^3/uL (140-400) Prothrombin Time 23.2 SEC (11.7-14.0) Prothromb Time International Ratio 2.1 (0.8-1.1) Activated Partial Thromboplast Time 42 SEC (24-38) Sodium Level 145 mmol/L (136-145) Potassium Level 4.5 mmol/L (3.5-5.1) Chloride Level 105 mmol/L (98-107) Carbon Dioxide Level 19 mmol/L (21-32) Anion Gap 21 (6-14) Blood Urea Nitrogen 45 mg/dL (7-20) Creatinine 8.2 mg/dL (0.6-1.0) Estimated GFR (Cockcroft-Gault) 5.8 Glucose Level 78 mg/dL (70-99) Calcium Level 8.0 mg/dL (8.5-10.1) Micro Microbiology 12/02/17 Blood Culture - Preliminary, Resulted NO GROWTH AFTER 1 DAY Objective Assessment Chronically low BP Sepsis with reported MRSA from 11/21 POA ([facility]) while on Vanc for MRSA bacteremia from previous admission -Repeat BC from 11/22 & NGTD. PHILIP 11/27 neg Hypotension - resolved Right basilar atelectasis versus infiltrate H/O High grade MRSA bacteremia previous admission from 10/31. source infected HD cath,s/p removal. Discharged on vanc -Repeat BC on 11/02, 11/04 & 11/08 positive. BC 11/13 negative -ECHO without evidence of veg H/O infected right HDC cath s/p removal on 11/01 + MRSA. -s/p interval placement of a temp [facility]/HDC on 11/01; removed. -s/p Tunneled HDC placement on 11/16. Leukocytosis - better Resp failure w/ pleural effusion s/p thoracentesis 11/07 with 1/1 liter removed pH 7.51. 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 C. diff neg 11/22 Plan Plan of Care pt has chronically low BP she alert awake and appropriate last neg BC 11/23 pt is on ceftarolin and daptomycin,, will scale down soon cont supportive care DOMONIQUE HARDEN MD Dec 05, 2017 09:40
--- NOTE | 2017-12-05 10:21 | PDOC ---
PROGRESS NOTES Chief Complaint Chief Complaint Diarrhea Hypotension H/o MRSA bacteremia Sepsis with reported MRSA from 11/21 POA ([facility]) while on Vanc for MRSA bacteremia from previous admission -Repeat BC from 11/22 & NGTD. 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 Vitals Vitals Vital Signs Date Time Temp Pulse Resp B/P (MAP) Pulse Ox O2 Delivery O2 Flow Rate FiO2 12/05/17 07:00 97.5 63 18 137/63 (87) 94 Room Air 97.5 12/04/17 20:00 2.0 Physical Exam Physical Exam GENERAL: Sitting in chair, smiling HEENT: Oral cavity dry. Dentures. no conjunc petechia LUNGS: Clear HEART: S1, S2. ABDOMEN: Soft. BS +. Ostomy, nontender EXTREMITIES: Left BKA, stump. Right lateral leg wound, small 1cm, . 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 rt big toe tender but not red, swollen or any wound Tunneled HDC (11/16) w/o signs of complications. Left chest PICC (11/26) clean General: Alert, Oriented X3, Cooperative, No acute distress Heart: Regular rate, Normal S1, Normal S2, No murmurs Lungs: Clear Abdomen: Normal bowel sounds, Soft, No tenderness, Other (Left lower abd ostomy ) Extremities: No cyanosis, No edema, Other (Healing later right lower leg ulcer , no skin breakdown on the right toes, occluded shunts in both thighs (no thrill ), weak femoral pulses bilaterally) Skin: No breakdown, No significant lesion Labs LABS Laboratory Tests Test 12/05/17 05:45 White Blood Count 12.4 x10^3/uL (4.0-11.0) Red Blood Count 3.00 x10^6/uL (3.50-5.40) Hemoglobin 7.7 g/dL (12.0-15.5) Hematocrit 25.1 % (36.0-47.0) Mean Corpuscular Volume 84 fL (79-100) Mean Corpuscular Hemoglobin 26 pg (25-35) Mean Corpuscular Hemoglobin Concent 31 g/dL (31-37) Red Cell Distribution Width 19.7 % (11.5-14.5) Platelet Count 308 x10^3/uL (140-400) Prothrombin Time 23.2 SEC (11.7-14.0) Prothromb Time International Ratio 2.1 (0.8-1.1) Activated Partial Thromboplast Time 42 SEC (24-38) Sodium Level 145 mmol/L (136-145) Potassium Level 4.5 mmol/L (3.5-5.1) Chloride Level 105 mmol/L (98-107) Carbon Dioxide Level 19 mmol/L (21-32) Anion Gap 21 (6-14) Blood Urea Nitrogen 45 mg/dL (7-20) Creatinine 8.2 mg/dL (0.6-1.0) Estimated GFR (Cockcroft-Gault) 5.8 Glucose Level 78 mg/dL (70-99) Calcium Level 8.0 mg/dL (8.5-10.1) Comment Review of Relevant I have reviewed the following items olivia (where applicable) has been applied. Labs Laboratory Tests Test 12/03/17 17:00 12/04/17 05:40 12/04/17 07:50 12/04/17 09:00 Clostridium difficile Toxin (PCR) Negative (Negative) Sodium Level 141 mmol/L (136-145) Potassium Level 4.6 mmol/L (3.5-5.1) Chloride Level 104 mmol/L (98-107) Carbon Dioxide Level 20 mmol/L (21-32) Anion Gap 17 (6-14) Blood Urea Nitrogen 38 mg/dL (7-20) Creatinine 6.8 mg/dL (0.6-1.0) Estimated GFR (Cockcroft-Gault) 7.2 Glucose Level 88 mg/dL (70-99) Calcium Level 9.0 mg/dL (8.5-10.1) Phosphorus Level 7.3 mg/dL (2.6-4.7) Magnesium Level 1.7 mg/dL (1.8-2.4) Prothrombin Time 23.4 SEC (11.7-14.0) 23.1 SEC (11.7-14.0) Prothromb Time International Ratio 2.2 (0.8-1.1) 2.1 (0.8-1.1) Activated Partial Thromboplast Time 66 SEC (24-38) Test 12/05/17 05:45 White Blood Count 12.4 x10^3/uL (4.0-11.0) Red Blood Count 3.00 x10^6/uL (3.50-5.40) Hemoglobin 7.7 g/dL (12.0-15.5) Hematocrit 25.1 % (36.0-47.0) Mean Corpuscular Volume 84 fL (79-100) Mean Corpuscular Hemoglobin 26 pg (25-35) Mean Corpuscular Hemoglobin Concent 31 g/dL (31-37) Red Cell Distribution Width 19.7 % (11.5-14.5) Platelet Count 308 x10^3/uL (140-400) Prothrombin Time 23.2 SEC (11.7-14.0) Prothromb Time International Ratio 2.1 (0.8-1.1) Activated Partial Thromboplast Time 42 SEC (24-38) Sodium Level 145 mmol/L (136-145) Potassium Level 4.5 mmol/L (3.5-5.1) Chloride Level 105 mmol/L (98-107) Carbon Dioxide Level 19 mmol/L (21-32) Anion Gap 21 (6-14) Blood Urea Nitrogen 45 mg/dL (7-20) Creatinine 8.2 mg/dL (0.6-1.0) Estimated GFR (Cockcroft-Gault) 5.8 Glucose Level 78 mg/dL (70-99) Calcium Level 8.0 mg/dL (8.5-10.1) Laboratory Tests Test 12/05/17 05:45 White Blood Count 12.4 x10^3/uL (4.0-11.0) Red Blood Count 3.00 x10^6/uL (3.50-5.40) Hemoglobin 7.7 g/dL (12.0-15.5) Hematocrit 25.1 % (36.0-47.0) Mean Corpuscular Volume 84 fL (79-100) Mean Corpuscular Hemoglobin 26 pg (25-35) Mean Corpuscular Hemoglobin Concent 31 g/dL (31-37) Red Cell Distribution Width 19.7 % (11.5-14.5) Platelet Count 308 x10^3/uL (140-400) Prothrombin Time 23.2 SEC (11.7-14.0) Prothromb Time International Ratio 2.1 (0.8-1.1) Activated Partial Thromboplast Time 42 SEC (24-38) Sodium Level 145 mmol/L (136-145) Potassium Level 4.5 mmol/L (3.5-5.1) Chloride Level 105 mmol/L (98-107) Carbon Dioxide Level 19 mmol/L (21-32) Anion Gap 21 (6-14) Blood Urea Nitrogen 45 mg/dL (7-20) Creatinine 8.2 mg/dL (0.6-1.0) Estimated GFR (Cockcroft-Gault) 5.8 Glucose Level 78 mg/dL (70-99) Calcium Level 8.0 mg/dL (8.5-10.1) Microbiology 12/02/17 Blood Culture - Preliminary, Resulted NO GROWTH AFTER 1 DAY Medications Current Medications Sodium Chloride 500 ml @ 250 mls/hr 1X ONCE IV Last administered on at 23:00; Start 12/02/17 at 23:15; Stop 12/03/17 at 01:14; Status DC Norepinephrine Bitartrate 250 ml @ 0 mls/hr 1X ONCE IV Last administered on at 23:27; Start 12/02/17 at 23:30; Stop 12/02/17 at 23:31; Status DC Ondansetron HCl (Zofran) 4 mg PRN Q8HRS PRN IV NAUSEA/VOMITING; Start at 23:30; Stop 12/03/17 at 23:29; Status DC Morphine Sulfate (Morphine Sulfate) 4 mg PRN Q2HR PRN IV PAIN Last administered on 12/03/17at 01:16; Start 12/02/17 at 23:30; Stop 12/03/17 at 23 :29; Status DC Acetaminophen (Tylenol) 650 mg PRN Q4HRS PRN PO FEVER; Start 12/02/17 at 23:30 ; Stop 12/03/17 at 23:29; Status DC Ceftaroline Fosamil 200 mg/ Sodium Chloride 250 ml @ 250 mls/hr Q12HR IV Last administered on 12/04/17at 20:43; Start 12/03/17 at 00:30 Norepinephrine Bitartrate 250 ml @ 1.875 mls/ hr CONT PRN IV SEE I/O RECORD; Start 12/03/17 at 01:15; Stop 12/04/17 at 15:30; Status DC Pharmacy Consult (C.diff Med Screen By Rx) 1 each 1X ONCE MC ; Start 12/03/17 at 09:00; Stop 12/03/17 at 09:01; Status DC Lactobacillus Rhamnosus (Culturelle) 1 cap BID PO Last administered on at 13:09; Start 12/03/17 at 21:00; Stop 12/04/17 at 14:23; Status DC Acetaminophen (Tylenol Supp) 650 mg PRN Q6HRS PRN MT MILD PAIN / TEMP; Start 12/03/17 at 10:45 Cinacalcet (Sensipar) 30 mg HS PO Last administered on 12/04/17at 20:43; Start 12/03/17 at 21:00 Diphenoxylate HCl/ Atropine (Lomotil) 1 tab PRN Q8HRS PRN PO DIARRHEA; Start 12/03/17 at 10:45 Vitamin B Complex/ Vitamin C (Kassie-Luann) 1 tab DAILY PO Last administered on 09:19; Start 12/03/17 at 11:30 Acetaminophen/ Hydrocodone Bitart (Lortab 7.5/325) 1 tab PRN Q8HRS PRN PO MODERATE-SEVERE PAIN Last administered on 12/04/17at 19:31; Start 12/03/17 at 10:45 Artificial Tears (Artificial Tears) 1 drop PRN Q15MIN PRN OU DRY EYE; Start at 10:45 Triamcinolone Acetonide (Kenalog) 1 hanh PRN Q8HRS PRN TP RASH; Start 12/03/17 at 10:45 Midodrine (Proamatine) 10 mg [id number] PO Last administered on 12/04/17at 19:31; Start 12/03/17 at 13:00 Multivitamins (Thera M Plus) 1 tab DAILY PO Last administered on 12/05/17at 09: 19; Start 12/04/17 at 09:00 Sulfasalazine (Azulfidine) 500 mg BID PO Last administered on 12/05/17at 09:20 ; Start 12/03/17 at 11:30 Potassium Chloride/Water 50 ml @ 50 mls/hr 1X ONCE IV Last administered on at 13:09; Start 12/03/17 at 12:00; Stop 12/03/17 at 12:59; Status DC Darbepoetin Justin (Aranesp) 60 mcg [id number] SQ Last administered on 12/03/17at 21:48; Start 12/03/17 at 21:00 Heparin Sodium (Porcine) (Heparin Sodium) 5,000 unit Q8HRS SQ Last administered on 12/04/17at 06:01; Start 12/03/17 at 14:00; Stop 12/04/17 at 13 :44; Status DC Daptomycin 250 mg/ Sodium Chloride 50 ml @ 100 mls/hr Q48H IV Last administered on 12/04/17at 11:45; Start 12/04/17 at 09:00 Iodixanol (Visipaque 320) 100 ml STK-MED ONCE .ROUTE ; Start 12/04/17 at 08:38 ; Stop 12/04/17 at 08:39; Status DC Lidocaine/Sodium Bicarbonate (Buffered Lidocaine 1%) 3 ml STK-MED ONCE .ROUTE ; Start 12/04/17 at 08:38; Stop 12/04/17 at 08:39; Status DC Heparin Sodium/ Sodium Chloride 0 ml @ As Directed STK-MED ONCE .ROUTE ; Start 12/04/17 at 08:39; Stop 12/04/17 at 08:40; Status DC Sodium Chloride 1,000 ml @ 1,000 mls/hr Q1H PRN IV hypotension; Start at 08:51; Stop 12/05/17 at 14:50 Sodium Chloride 1,000 ml @ 400 mls/hr Q2H30M PRN IV PATENCY; Start 12/05/17 at 08:51; Stop 12/05/17 at 20:50 Info (PHARMACY MONITORING -- do not chart) 1 each PRN DAILY PRN MC SEE COMMENTS ; Start 12/05/17 at 09:00; Status UNV Info (PHARMACY MONITORING -- do not chart) 1 each PRN DAILY PRN MC SEE COMMENTS ; Start 12/05/17 at 09:00 Active Scripts Active Midodrine Hcl 5 Mg Tablet 10 Mg PO [id number] Artificial Tears (Polyvinyl Alcohol) 15 Ml Drops 1 Drop OU PRN Q15MIN PRN 30 Days Acetaminophen Supp (Acetaminophen) 650 Mg Supp.rect 650 Mg MT PRN Q6HRS PRN 30 Days Hydrocodone-Apap 7.5-325 (Hydrocodone Bit/Acetaminophen) 1 Each Tablet 1 Tab PO PRN Q8HRS PRN 7 Days Reported Multivitamins (Multivitamin) 1 Each Tablet 1 Tab PO DAILY Sensipar (Cinacalcet Hcl) 30 Mg Tablet 1 Tab PO HS Azulfidine (Sulfasalazine) 500 Mg Tablet 500 Mg PO BID Lomotil Tablet (Diphenoxylate Hcl/Atropine) 1 Each Tablet 1 Tab PO PRN Q8HRS Nephro-Luann Tablet (Folic Acid/Vitamin B Comp W-C) 0.8 Mg Tablet 1 Tab PO DAILY Triamcinolone Acetonide 0.1% Cream (Triamcinolone Acetonide) 15 Gm Cream..g. 1 Hanh TP PRN Q8HRS apply to bilat legs topically as needed for skin care Vitals/I & O Vital Sign - Last 24 Hours 12/04/17 12/04/17 12/04/17 12/04/17 11:00 13:07 13:09 14:08 Temp 97.5 97.5 Pulse 57 57 65 Resp 16 16 16 B/P (MAP) 137/70 (92) 104/70 104/73 (83) Pulse Ox 93 93 93 O2 Delivery Room Air Room Air Room Air 12/04/17 12/04/17 12/04/17 12/04/17 19:31 19:31 19:52 20:00 Temp 97.8 97.8 Pulse 65 58 B/P (MAP) 104/73 107/34 (58) Pulse Ox 93 92 O2 Delivery Room Air Nasal Cannula O2 Flow Rate 2.0 12/04/17 12/04/17 12/05/17 12/05/17 20:31 23:10 03:46 04:00 Temp 97.6 98.8 97.6 98.8 Pulse 58 55 Resp 20 16 16 B/P (MAP) 97/28 (51) 100/27 (51) 132/38 (69) Pulse Ox 94 94 97 O2 Delivery Room Air Room Air Room Air 12/05/17 07:00 Temp 97.5 97.5 Pulse 63 Resp 18 B/P (MAP) 137/63 (87) Pulse Ox 94 O2 Delivery Room Air Intake and Output 12/04/17 12/04/17 12/05/17 15:00 23:00 07:00 Intake Total 560 ml 540 ml Output Total 950 ml 500 ml Balance -390 ml 40 ml Nutrition Consultation Dietary Evaluation: Recommendations by RD: Protein supplementation Comments: REC Ensure pudding (buttercotch) w/lunch and dinner REC Magic cup (orange) w/lunch and dinner Continue w/MVI and kassie-luann Expected Outcomes/Goals: PO intake to meet >75% est needs Malnutrition Findings: Body Fat Depletion (Non Severe: Mild Depletion Weight Status: Underweight YISSEL DUFF MD Dec 05, 2017 10:20
[2017-12-05] MEDS ORDERED: diphenhydrAMINE HCL 25 MG CAPSULE PO PRN (10:30)
[2017-12-05] MEDS ORDERED: ACETAMINOPHEN 325 MG TABLET. PO PRN (10:30)
--- NOTE | 2017-12-05 12:00 | PDOC ---
Renal-Progress Notes Subjective Notes Notes BETTER History of Present Illness Hx of present illness STABLE Vitals Vitals Vital Signs Date Time Temp Pulse Resp B/P (MAP) Pulse Ox O2 Delivery O2 Flow Rate FiO2 12/05/17 07:00 97.5 63 18 137/63 (87) 94 Room Air 97.5 12/04/17 20:00 2.0 Weight Weight [ ] I.O. Intake and Output Intake and Output 12/05/17 07:00 Intake Total 1100 ml Output Total 1450 ml Balance -350 ml Intake Oral 800 ml IV Total 300 ml Output Stool Total 1450 ml Labs Labs Laboratory Tests Test 12/05/17 05:45 White Blood Count 12.4 x10^3/uL (4.0-11.0) Red Blood Count 3.00 x10^6/uL (3.50-5.40) Hemoglobin 7.7 g/dL (12.0-15.5) Hematocrit 25.1 % (36.0-47.0) Mean Corpuscular Volume 84 fL (79-100) Mean Corpuscular Hemoglobin 26 pg (25-35) Mean Corpuscular Hemoglobin Concent 31 g/dL (31-37) Red Cell Distribution Width 19.7 % (11.5-14.5) Platelet Count 308 x10^3/uL (140-400) Prothrombin Time 23.2 SEC (11.7-14.0) Prothromb Time International Ratio 2.1 (0.8-1.1) Activated Partial Thromboplast Time 42 SEC (24-38) Sodium Level 145 mmol/L (136-145) Potassium Level 4.5 mmol/L (3.5-5.1) Chloride Level 105 mmol/L (98-107) Carbon Dioxide Level 19 mmol/L (21-32) Anion Gap 21 (6-14) Blood Urea Nitrogen 45 mg/dL (7-20) Creatinine 8.2 mg/dL (0.6-1.0) Estimated GFR (Cockcroft-Gault) 5.8 Glucose Level 78 mg/dL (70-99) Calcium Level 8.0 mg/dL (8.5-10.1) Micro Micro Microbiology 12/02/17 Blood Culture - Preliminary, Resulted NO GROWTH AFTER 1 DAY Review of Systems Constitutional: yes: weakness, alert, oriented Ears/Nose/Throat: Yes: no symptom reported Eyes: Yes: no symptom reported Pulmonary: Yes no symptom reported Cardiovascular: Yes no symptom reported Gastrointestional: Yes: no symptom reported Genitourinary: Yes: no symptom reported Musculoskeletal: Yes: no symptom reported Skin: Yes no symptom reported Psychiatric/Neurological: Yes: no symptom reported Endocrine: Yes: no symptom reported Physical Exam General Appearance: no apparent distress Skin: warm Respiratory: decreased breath sounds Heart: S1S2 Abdomen: soft, bowel sounds present Genitourinary: bladder flat Extremities: pulses present Neurology: alert Musculoskeletal: Other Assessment Assessment IMP HYPOTENSION-BETTER ESRD ANEMIA RECENT SEPSIS PLAN HD TODAY UF TO DW ABX PER DANIELLE SAINI MD Dec 05, 2017 12:00
[2017-12-05] MEDS ORDERED: PHYTONADIONE 10 MG/ML AMPUL. SQ ONE (13:00)
[2017-12-05] MEDS: HYDROcodone/APAP 7.5/325MG 1 TAB TABLET PO PRN (20:51)
[2017-12-05] MEDS: CINACALCET HCL 30 MG TABLET PO SCH (20:56)
[2017-12-05] MEDS: fentaNYL PF VIAL 100 MCG/2 ML VIAL IV PRN (22:30)
[2017-12-05 23:46] LABS: PROTHROMBIN TIME PATIENT 16.5 SEC (11.7-14.0)
[2017-12-06] VITALS (14 sets, daily range): BP systolic 67–114; BP diastolic 22–79
[2017-12-06] MEDS: fentaNYL PF VIAL 100 MCG/2 ML VIAL IV PRN ×6 (01:31→23:08)
[2017-12-06] MEDS: HYDROcodone/APAP 7.5/325MG 1 TAB TABLET PO PRN ×2 (01:56→15:39)
[2017-12-06 05:05] LABS: BASO # 0.1 x10^3/uL (0.0-0.2); BASO % 1 % (0-3); EOS # 0.4 x10^3/uL (0.0-0.7); EOS % 4 % (0-3); HEMOGLOBIN 7.9 g/dL (12.0-15.5); LYMPH # 1.5 x10^3/uL (1.0-4.8); LYMPH % 14 % (24-48); MEAN CORPUSCULAR HEMOGLOBIN 27 pg (25-35); MEAN CORPUSCULAR HGB CONC 33 g/dL (31-37); MEAN CORPUSCULAR VOLUME 82 fL (79-100); MONO # 1.5 x10^3/uL (0.0-1.1); MONO % 15 % (0-9); NEUT # 6.6 x10^3uL (1.8-7.7); NEUT % 65 % (31-73); PLATELET COUNT 296 x10^3/uL (140-400); RED BLOOD COUNT 2.93 x10^6/uL (3.50-5.40); WHITE BLOOD COUNT 10.2 x10^3/uL (4.0-11.0)
[2017-12-06 05:31] LABS: ALBUMIN 3.1 g/dL (3.4-5.0); ALBUMIN/GLOBULIN RATIO 0.6 (1.0-1.7); CREATININE 3.7 mg/dL (0.6-1.0); GFR 14.5; TOTAL BILIRUBIN 0.7 mg/dL (0.2-1.0); TOTAL PROTEIN 8.2 g/dL (6.4-8.2)
[2017-12-06] MEDS: MIDODRINE 5 MG TABLET PO SCH ×3 (07:25→17:31)
[2017-12-06] MEDS: FOLIC/VIT B COMP W-C (RENAL) TABLET. PO SCH (08:15)
[2017-12-06] MEDS: MULTIVITAMIN with MINERAL TABLET. PO SCH (08:15)
[2017-12-06] MEDS: sulfaSALAzine 500 MG TABLET PO SCH ×2 (08:15→20:40)
[2017-12-06] MEDS: NORMAL SALINE IV SCH ×3 (08:32→20:40)
[2017-12-06] MEDS: DAPTOMYCIN IV SCH (08:32)
[2017-12-06] MEDS: CEFTAROLINE FOSAMIL IV SCH ×2 (09:38→20:40)
--- NOTE | 2017-12-06 09:47 | PDOC ---
Infectious Disease Note Subjective Subjective feeling good ROS ROS no n/v/d/sob Vital Sign Vital Signs Vital Signs Date Time Temp Pulse Resp B/P (MAP) Pulse Ox O2 Delivery O2 Flow Rate FiO2 12/06/17 09:38 16 Room Air 12/06/17 07:25 69 84/20 12/06/17 03:02 97 12/06/17 03:00 98.6 98.6 Physical Exam PHYSICAL EXAM GENERAL: Sitting in chair, smiling HEENT: Oral cavity dry. Dentures. no conjunc petechia LUNGS: Clear HEART: S1, S2. ABDOMEN: Soft. BS +. Ostomy, nontender EXTREMITIES: Left BKA, stump. Right lateral leg wound, small 1cm, . 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 rt big toe tender but not red, swollen or any wound Tunneled HDC (11/16) w/o signs of complications. Left chest PICC (11/26) clean Labs Lab Laboratory Tests Test 12/05/17 23:25 12/06/17 04:45 Prothrombin Time 16.5 SEC (11.7-14.0) Prothromb Time International Ratio 1.4 (0.8-1.1) White Blood Count 10.2 x10^3/uL (4.0-11.0) Red Blood Count 2.93 x10^6/uL (3.50-5.40) Hemoglobin 7.9 g/dL (12.0-15.5) Hematocrit 24.0 % (36.0-47.0) Mean Corpuscular Volume 82 fL (79-100) Mean Corpuscular Hemoglobin 27 pg (25-35) Mean Corpuscular Hemoglobin Concent 33 g/dL (31-37) Red Cell Distribution Width 20.0 % (11.5-14.5) Platelet Count 296 x10^3/uL (140-400) Neutrophils (%) (Auto) 65 % (31-73) Lymphocytes (%) (Auto) 14 % (24-48) Monocytes (%) (Auto) 15 % (0-9) Eosinophils (%) (Auto) 4 % (0-3) Basophils (%) (Auto) 1 % (0-3) Neutrophils # (Auto) 6.6 x10^3uL (1.8-7.7) Lymphocytes # (Auto) 1.5 x10^3/uL (1.0-4.8) Monocytes # (Auto) 1.5 x10^3/uL (0.0-1.1) Eosinophils # (Auto) 0.4 x10^3/uL (0.0-0.7) Basophils # (Auto) 0.1 x10^3/uL (0.0-0.2) Sodium Level 143 mmol/L (136-145) Potassium Level 3.0 mmol/L (3.5-5.1) Chloride Level 100 mmol/L (98-107) Carbon Dioxide Level 34 mmol/L (21-32) Anion Gap 9 (6-14) Blood Urea Nitrogen 11 mg/dL (7-20) Creatinine 3.7 mg/dL (0.6-1.0) Estimated GFR (Cockcroft-Gault) 14.5 BUN/Creatinine Ratio 3 (6-20) Glucose Level 90 mg/dL (70-99) Calcium Level 9.0 mg/dL (8.5-10.1) Total Bilirubin 0.7 mg/dL (0.2-1.0) Aspartate Amino Transf (AST/SGOT) 11 U/L (15-37) Alanine Aminotransferase (ALT/SGPT) 14 U/L (14-59) Alkaline Phosphatase 105 U/L (46-116) Total Protein 8.2 g/dL (6.4-8.2) Albumin 3.1 g/dL (3.4-5.0) Albumin/Globulin Ratio 0.6 (1.0-1.7) Micro Microbiology 12/02/17 Blood Culture - Preliminary, Resulted NO GROWTH AFTER 1 DAY Objective Assessment Chronically low BP Sepsis with reported MRSA from 11/21 POA ([facility]) while on Vanc for MRSA bacteremia from previous admission -Repeat BC from 11/22 & NGTD. PHILIP 11/27 neg Hypotension - resolved Right basilar atelectasis versus infiltrate H/O High grade MRSA bacteremia previous admission from 10/31. source infected HD cath,s/p removal. Discharged on vanc -Repeat BC on 11/02, 11/04 & 11/08 positive. BC 11/13 negative -ECHO without evidence of veg H/O infected right HDC cath s/p removal on 11/01 + MRSA. -s/p interval placement of a temp [facility]/HDC on 11/01; removed. -s/p Tunneled HDC placement on 11/16. Leukocytosis - better Resp failure w/ pleural effusion s/p thoracentesis 11/07 with 1/1 liter removed pH 7.51. 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 C. diff neg 11/22 Plan Plan of Care pt has chronically low BP she alert awake and appropriate last neg BC 11/23 pt is on ceftarolin and daptomycin,, will scale down soon cont supportive care angio today DOMONIQUE HARDEN MD Dec 06, 2017 09:47
[2017-12-06] MEDS ORDERED: LIDOCAINE WITH 8.4% SOD BICARB 3 ML DISP.SYRIN. ONE (10:49)
[2017-12-06] MEDS ORDERED: IODIXANOL 320 MG/ML 100 ML VIAL. ONE (10:49)
--- NOTE | 2017-12-06 11:03 | PDOC ---
PROGRESS NOTES Chief Complaint Chief Complaint Diarrhea Hypotension H/o MRSA bacteremia Sepsis with reported MRSA from 11/21 POA ([facility]) while on Vanc for MRSA bacteremia from previous admission -Repeat BC from 11/22 & NGTD. PHILIP 11/27 neg Hypotension - resolved H/o chronic renal failure H/o HTN H/o CAD History of Present Illness History of Present Illness Pt seen and examined c/o right great toe pain DW RN blood cult ntd. angiogram today result pending Vitals Vitals Vital Signs Date Time Temp Pulse Resp B/P (MAP) Pulse Ox O2 Delivery O2 Flow Rate FiO2 12/06/17 09:38 16 Room Air 12/06/17 07:25 69 84/20 12/06/17 07:00 98.2 97 98.2 Physical Exam Physical Exam GENERAL: Sitting in chair, smiling HEENT: Oral cavity dry. Dentures. no conjunc petechia LUNGS: Clear HEART: S1, S2. ABDOMEN: Soft. BS +. Ostomy, nontender EXTREMITIES: Left BKA, stump. Right lateral leg wound, small 1cm, . 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 rt big toe tender but not red, swollen or any wound Tunneled HDC (11/16) w/o signs of complications. Left chest PICC (11/26) clean General: Alert, Oriented X3, Cooperative, No acute distress, mild distress Heart: Regular rate, Normal S1, Normal S2, No murmurs Lungs: Clear Abdomen: Normal bowel sounds, Soft, No tenderness, Other (Left lower abd ostomy ) Extremities: No cyanosis, No edema, Other (Healing later right lower leg ulcer , no skin breakdown on the right toes, occluded shunts in both thighs (no thrill ), weak femoral pulses bilaterally) Skin: No breakdown, No significant lesion Labs LABS Laboratory Tests Test 12/05/17 23:25 12/06/17 04:45 Prothrombin Time 16.5 SEC (11.7-14.0) Prothromb Time International Ratio 1.4 (0.8-1.1) White Blood Count 10.2 x10^3/uL (4.0-11.0) Red Blood Count 2.93 x10^6/uL (3.50-5.40) Hemoglobin 7.9 g/dL (12.0-15.5) Hematocrit 24.0 % (36.0-47.0) Mean Corpuscular Volume 82 fL (79-100) Mean Corpuscular Hemoglobin 27 pg (25-35) Mean Corpuscular Hemoglobin Concent 33 g/dL (31-37) Red Cell Distribution Width 20.0 % (11.5-14.5) Platelet Count 296 x10^3/uL (140-400) Neutrophils (%) (Auto) 65 % (31-73) Lymphocytes (%) (Auto) 14 % (24-48) Monocytes (%) (Auto) 15 % (0-9) Eosinophils (%) (Auto) 4 % (0-3) Basophils (%) (Auto) 1 % (0-3) Neutrophils # (Auto) 6.6 x10^3uL (1.8-7.7) Lymphocytes # (Auto) 1.5 x10^3/uL (1.0-4.8) Monocytes # (Auto) 1.5 x10^3/uL (0.0-1.1) Eosinophils # (Auto) 0.4 x10^3/uL (0.0-0.7) Basophils # (Auto) 0.1 x10^3/uL (0.0-0.2) Sodium Level 143 mmol/L (136-145) Potassium Level 3.0 mmol/L (3.5-5.1) Chloride Level 100 mmol/L (98-107) Carbon Dioxide Level 34 mmol/L (21-32) Anion Gap 9 (6-14) Blood Urea Nitrogen 11 mg/dL (7-20) Creatinine 3.7 mg/dL (0.6-1.0) Estimated GFR (Cockcroft-Gault) 14.5 BUN/Creatinine Ratio 3 (6-20) Glucose Level 90 mg/dL (70-99) Calcium Level 9.0 mg/dL (8.5-10.1) Total Bilirubin 0.7 mg/dL (0.2-1.0) Aspartate Amino Transf (AST/SGOT) 11 U/L (15-37) Alanine Aminotransferase (ALT/SGPT) 14 U/L (14-59) Alkaline Phosphatase 105 U/L (46-116) Total Protein 8.2 g/dL (6.4-8.2) Albumin 3.1 g/dL (3.4-5.0) Albumin/Globulin Ratio 0.6 (1.0-1.7) Comment Review of Relevant I have reviewed the following items olivia (where applicable) has been applied. Labs Laboratory Tests Test 12/05/17 05:45 12/05/17 23:25 12/06/17 04:45 White Blood Count 12.4 x10^3/uL (4.0-11.0) 10.2 x10^3/uL (4.0-11.0) Red Blood Count 3.00 x10^6/uL (3.50-5.40) 2.93 x10^6/uL (3.50-5.40) Hemoglobin 7.7 g/dL (12.0-15.5) 7.9 g/dL (12.0-15.5) Hematocrit 25.1 % (36.0-47.0) 24.0 % (36.0-47.0) Mean Corpuscular Volume 84 fL (79-100) 82 fL (79-100) Mean Corpuscular Hemoglobin 26 pg (25-35) 27 pg (25-35) Mean Corpuscular Hemoglobin Concent 31 g/dL (31-37) 33 g/dL (31-37) Red Cell Distribution Width 19.7 % (11.5-14.5) 20.0 % (11.5-14.5) Platelet Count 308 x10^3/uL (140-400) 296 x10^3/uL (140-400) Prothrombin Time 23.2 SEC (11.7-14.0) 16.5 SEC (11.7-14.0) Prothromb Time International Ratio 2.1 (0.8-1.1) 1.4 (0.8-1.1) Activated Partial Thromboplast Time 42 SEC (24-38) Sodium Level 145 mmol/L (136-145) 143 mmol/L (136-145) Potassium Level 4.5 mmol/L (3.5-5.1) 3.0 mmol/L (3.5-5.1) Chloride Level 105 mmol/L (98-107) 100 mmol/L (98-107) Carbon Dioxide Level 19 mmol/L (21-32) 34 mmol/L (21-32) Anion Gap 21 (6-14) 9 (6-14) Blood Urea Nitrogen 45 mg/dL (7-20) 11 mg/dL (7-20) Creatinine 8.2 mg/dL (0.6-1.0) 3.7 mg/dL (0.6-1.0) Estimated GFR (Cockcroft-Gault) 5.8 14.5 Glucose Level 78 mg/dL (70-99) 90 mg/dL (70-99) Calcium Level 8.0 mg/dL (8.5-10.1) 9.0 mg/dL (8.5-10.1) Neutrophils (%) (Auto) 65 % (31-73) Lymphocytes (%) (Auto) 14 % (24-48) Monocytes (%) (Auto) 15 % (0-9) Eosinophils (%) (Auto) 4 % (0-3) Basophils (%) (Auto) 1 % (0-3) Neutrophils # (Auto) 6.6 x10^3uL (1.8-7.7) Lymphocytes # (Auto) 1.5 x10^3/uL (1.0-4.8) Monocytes # (Auto) 1.5 x10^3/uL (0.0-1.1) Eosinophils # (Auto) 0.4 x10^3/uL (0.0-0.7) Basophils # (Auto) 0.1 x10^3/uL (0.0-0.2) BUN/Creatinine Ratio 3 (6-20) Total Bilirubin 0.7 mg/dL (0.2-1.0) Aspartate Amino Transf (AST/SGOT) 11 U/L (15-37) Alanine Aminotransferase (ALT/SGPT) 14 U/L (14-59) Alkaline Phosphatase 105 U/L (46-116) Total Protein 8.2 g/dL (6.4-8.2) Albumin 3.1 g/dL (3.4-5.0) Albumin/Globulin Ratio 0.6 (1.0-1.7) Laboratory Tests Test 12/05/17 23:25 12/06/17 04:45 Prothrombin Time 16.5 SEC (11.7-14.0) Prothromb Time International Ratio 1.4 (0.8-1.1) White Blood Count 10.2 x10^3/uL (4.0-11.0) Red Blood Count 2.93 x10^6/uL (3.50-5.40) Hemoglobin 7.9 g/dL (12.0-15.5) Hematocrit 24.0 % (36.0-47.0) Mean Corpuscular Volume 82 fL (79-100) Mean Corpuscular Hemoglobin 27 pg (25-35) Mean Corpuscular Hemoglobin Concent 33 g/dL (31-37) Red Cell Distribution Width 20.0 % (11.5-14.5) Platelet Count 296 x10^3/uL (140-400) Neutrophils (%) (Auto) 65 % (31-73) Lymphocytes (%) (Auto) 14 % (24-48) Monocytes (%) (Auto) 15 % (0-9) Eosinophils (%) (Auto) 4 % (0-3) Basophils (%) (Auto) 1 % (0-3) Neutrophils # (Auto) 6.6 x10^3uL (1.8-7.7) Lymphocytes # (Auto) 1.5 x10^3/uL (1.0-4.8) Monocytes # (Auto) 1.5 x10^3/uL (0.0-1.1) Eosinophils # (Auto) 0.4 x10^3/uL (0.0-0.7) Basophils # (Auto) 0.1 x10^3/uL (0.0-0.2) Sodium Level 143 mmol/L (136-145) Potassium Level 3.0 mmol/L (3.5-5.1) Chloride Level 100 mmol/L (98-107) Carbon Dioxide Level 34 mmol/L (21-32) Anion Gap 9 (6-14) Blood Urea Nitrogen 11 mg/dL (7-20) Creatinine 3.7 mg/dL (0.6-1.0) Estimated GFR (Cockcroft-Gault) 14.5 BUN/Creatinine Ratio 3 (6-20) Glucose Level 90 mg/dL (70-99) Calcium Level 9.0 mg/dL (8.5-10.1) Total Bilirubin 0.7 mg/dL (0.2-1.0) Aspartate Amino Transf (AST/SGOT) 11 U/L (15-37) Alanine Aminotransferase (ALT/SGPT) 14 U/L (14-59) Alkaline Phosphatase 105 U/L (46-116) Total Protein 8.2 g/dL (6.4-8.2) Albumin 3.1 g/dL (3.4-5.0) Albumin/Globulin Ratio 0.6 (1.0-1.7) Microbiology 12/02/17 Blood Culture - Preliminary, Resulted NO GROWTH AFTER 2 DAYS Medications Current Medications Sodium Chloride 500 ml @ 250 mls/hr 1X ONCE IV Last administered on at 23:00; Start 12/02/17 at 23:15; Stop 12/03/17 at 01:14; Status DC Norepinephrine Bitartrate 250 ml @ 0 mls/hr 1X ONCE IV Last administered on at 23:27; Start 12/02/17 at 23:30; Stop 12/02/17 at 23:31; Status DC Ondansetron HCl (Zofran) 4 mg PRN Q8HRS PRN IV NAUSEA/VOMITING; Start at 23:30; Stop 12/03/17 at 23:29; Status DC Morphine Sulfate (Morphine Sulfate) 4 mg PRN Q2HR PRN IV PAIN Last administered on 12/03/17at 01:16; Start 12/02/17 at 23:30; Stop 12/03/17 at 23 :29; Status DC Acetaminophen (Tylenol) 650 mg PRN Q4HRS PRN PO FEVER; Start 12/02/17 at 23:30 ; Stop 12/03/17 at 23:29; Status DC Ceftaroline Fosamil 200 mg/ Sodium Chloride 250 ml @ 250 mls/hr Q12HR IV Last administered on 12/06/17at 09:38; Start 12/03/17 at 00:30 Norepinephrine Bitartrate 250 ml @ 1.875 mls/ hr CONT PRN IV SEE I/O RECORD; Start 12/03/17 at 01:15; Stop 12/04/17 at 15:30; Status DC Pharmacy Consult (C.diff Med Screen By Rx) 1 each 1X ONCE MC ; Start 12/03/17 at 09:00; Stop 12/03/17 at 09:01; Status DC Lactobacillus Rhamnosus (Culturelle) 1 cap BID PO Last administered on 13:09; Start 12/03/17 at 21:00; Stop 12/04/17 at 14:23; Status DC Acetaminophen (Tylenol Supp) 650 mg PRN Q6HRS PRN LA MILD PAIN / TEMP; Start 12/03/17 at 10:45 Cinacalcet (Sensipar) 30 mg HS PO Last administered on 12/05/17at 20:56; Start 12/03/17 at 21:00 Diphenoxylate HCl/ Atropine (Lomotil) 1 tab PRN Q8HRS PRN PO DIARRHEA; Start 12/03/17 at 10:45 Vitamin B Complex/ Vitamin C (Kassie-Luann) 1 tab DAILY PO Last administered on 09:19; Start 12/03/17 at 11:30 Acetaminophen/ Hydrocodone Bitart (Lortab 7.5/325) 1 tab PRN Q8HRS PRN PO MODERATE-SEVERE PAIN Last administered on 12/06/17at 01:56; Start 12/03/17 at 10:45 Artificial Tears (Artificial Tears) 1 drop PRN Q15MIN PRN OU DRY EYE; Start at 10:45 Triamcinolone Acetonide (Kenalog) 1 hanh PRN Q8HRS PRN TP RASH; Start 12/03/17 at 10:45 Midodrine (Proamatine) 10 mg [id number] PO Last administered on 12/06/17at 07:25; Start 12/03/17 at 13:00 Multivitamins (Thera M Plus) 1 tab DAILY PO Last administered on 12/05/17at 09: 19; Start 12/04/17 at 09:00 Sulfasalazine (Azulfidine) 500 mg BID PO Last administered on 12/05/17at 20:57 ; Start 12/03/17 at 11:30 Potassium Chloride/Water 50 ml @ 50 mls/hr 1X ONCE IV Last administered on at 13:09; Start 12/03/17 at 12:00; Stop 12/03/17 at 12:59; Status DC Darbepoetin Justin (Aranesp) 60 mcg WEEKLYHS SQ Last administered on 12/03/17at 21:48; Start 12/03/17 at 21:00 Heparin Sodium (Porcine) (Heparin Sodium) 5,000 unit Q8HRS SQ Last administered on 12/04/17at 06:01; Start 12/03/17 at 14:00; Stop 12/04/17 at 13 :44; Status DC Daptomycin 250 mg/ Sodium Chloride 50 ml @ 100 mls/hr Q48H IV Last administered on 12/06/17at 08:32; Start 12/04/17 at 09:00 Iodixanol (Visipaque 320) 100 ml STK-MED ONCE .ROUTE ; Start 12/04/17 at 08:38 ; Stop 12/04/17 at 08:39; Status DC Lidocaine/Sodium Bicarbonate (Buffered Lidocaine 1%) 3 ml STK-MED ONCE .ROUTE ; Start 12/04/17 at 08:38; Stop 12/04/17 at 08:39; Status DC Heparin Sodium/ Sodium Chloride 0 ml @ As Directed STK-MED ONCE .ROUTE ; Start 12/04/17 at 08:39; Stop 12/04/17 at 08:40; Status DC Sodium Chloride 1,000 ml @ 1,000 mls/hr Q1H PRN IV hypotension; Start at 08:51; Stop 12/05/17 at 14:50; Status DC Sodium Chloride 1,000 ml @ 400 mls/hr Q2H30M PRN IV PATENCY; Start 12/05/17 at 08:51; Stop 12/05/17 at 20:50; Status DC Info (PHARMACY MONITORING -- do not chart) 1 each PRN DAILY PRN MC SEE COMMENTS ; Start 12/05/17 at 09:00; Status UNV Info (PHARMACY MONITORING -- do not chart) 1 each PRN DAILY PRN MC SEE COMMENTS ; Start 12/05/17 at 09:00 Acetaminophen (Tylenol) 650 mg 1X PRN PRN PO PRE-TRANSFUSION; Start 12/05/17 at 10:30; Stop 12/05/17 at 21:00; Status DC Diphenhydramine HCl (Benadryl) 25 mg PRN 1X PRN PO PRE-TRANSFUSION; Start at 10:30; Stop 12/05/17 at 21:00; Status DC Phytonadione (Vitamin K Ampule) 5 mg 1X ONCE SQ Last administered on at 15:11; Start 12/05/17 at 13:00; Stop 12/05/17 at 13:01; Status DC Fentanyl Citrate (Fentanyl 2ml Vial) 25 mcg PRN Q4HRS PRN IV PAIN MILD Last administered on 12/06/17at 01:31; Start 12/05/17 at 22:10 Alprazolam (Xanax) 0.5 mg PRN Q8HRS PRN PO ANXIETY / AGITATION; Start at 02:45 Fentanyl Citrate (Fentanyl 2ml Vial) 50 mcg PRN Q2HR PRN IV PAIN MODERATE TO SEVERE Last administered on 12/06/17at 09:38; Start 12/06/17 at 02:45 Iodixanol (Visipaque 320) 100 ml STK-MED ONCE .ROUTE ; Start 12/06/17 at 10:49 ; Stop 12/06/17 at 10:50; Status DC Lidocaine/Sodium Bicarbonate (Buffered Lidocaine 1%) 3 ml STK-MED ONCE .ROUTE ; Start 12/06/17 at 10:49; Stop 12/06/17 at 10:50; Status DC Heparin Sodium/ Sodium Chloride 1,000 ml @ As Directed STK-MED ONCE .ROUTE ; Start 12/06/17 at 10:49; Stop 12/06/17 at 10:50; Status DC Active Scripts Active Midodrine Hcl 5 Mg Tablet 10 Mg PO [id number] Artificial Tears (Polyvinyl Alcohol) 15 Ml Drops 1 Drop OU PRN Q15MIN PRN 30 Days Acetaminophen Supp (Acetaminophen) 650 Mg Supp.rect 650 Mg LA PRN Q6HRS PRN 30 Days Hydrocodone-Apap 7.5-325 (Hydrocodone Bit/Acetaminophen) 1 Each Tablet 1 Tab PO PRN Q8HRS PRN 7 Days Reported Multivitamins (Multivitamin) 1 Each Tablet 1 Tab PO DAILY Sensipar (Cinacalcet Hcl) 30 Mg Tablet 1 Tab PO HS Azulfidine (Sulfasalazine) 500 Mg Tablet 500 Mg PO BID Lomotil Tablet (Diphenoxylate Hcl/Atropine) 1 Each Tablet 1 Tab PO PRN Q8HRS Nephro-Luann Tablet (Folic Acid/Vitamin B Comp W-C) 0.8 Mg Tablet 1 Tab PO DAILY Triamcinolone Acetonide 0.1% Cream (Triamcinolone Acetonide) 15 Gm Cream..g. 1 Hanh TP PRN Q8HRS apply to bilat legs topically as needed for skin care Vitals/I & O Vital Sign - Last 24 Hours 12/05/17 12/05/17 12/05/17 12/05/17 15:00 15:02 15:16 16:15 Temp 98.2 98.0 98.2 98.6 98.2 98.0 98.2 98.6 Pulse 72 80 77 75 Resp 18 18 18 18 B/P (MAP) 114/57 (76) 119/43 114/57 106/37 Pulse Ox 100 O2 Delivery Room Air 12/05/17 12/05/17 12/05/17 12/05/17 19:00 19:10 19:26 20:00 Temp 98.8 98.1 98.5 98.8 98.1 98.5 Pulse 77 85 74 Resp 18 16 18 B/P (MAP) 115/59 (77) 92/31 103/50 Pulse Ox 97 O2 Delivery Room Air Room Air 12/05/17 12/05/17 12/05/17 12/06/17 20:51 22:30 23:00 01:31 Temp 98.9 98.9 Pulse 75 Resp 18 18 18 18 B/P (MAP) 111/58 (75) Pulse Ox 97 O2 Delivery Room Air Room Air Room Air Room Air 12/06/17 12/06/17 12/06/17 12/06/17 01:56 02:05 02:58 03:00 Temp 98.6 98.6 Pulse 76 Resp 18 18 18 18 B/P (MAP) 97/38 (57) Pulse Ox 97 O2 Delivery Room Air Room Air Room Air Room Air 12/06/17 12/06/17 12/06/17 12/06/17 03:01 03:02 03:45 07:00 Temp 98.2 98.2 Pulse 72 65 Resp 18 18 16 B/P (MAP) 97/24 (48) 97/22 (47) Pulse Ox 97 97 O2 Delivery Room Air Room Air Room Air 12/06/17 12/06/17 07:25 09:38 Pulse 69 Resp 16 B/P (MAP) 84/20 O2 Delivery Room Air Intake and Output 12/05/17 12/05/17 12/06/17 15:00 23:00 07:00 Intake Total 834 ml Output Total 350 ml 875 ml Balance -350 ml -41 ml Nutrition Consultation Dietary Evaluation: Recommendations by RD: Protein supplementation Comments: REC Ensure pudding (buttercotch) w/lunch and dinner REC Magic cup (orange) w/lunch and dinner Continue w/MVI and kassie-luann Expected Outcomes/Goals: PO intake to meet >75% est needs Malnutrition Findings: Body Fat Depletion (Non Severe: Mild Depletion Weight Status: Underweight YISSEL DUFF MD Dec 06, 2017 11:03
--- NOTE | 2017-12-06 11:10 | PDOC ---
Provider Note Provider Note Pt INR improved to 1.4 today after FFP and Vit K yesterday. She is down in IR getting aortogram with run off currently. RN obtained pt's vascular surgery records from [facility], reviewed, provided to IR and faxed to our office for record. History extensive, see in paper chart if needed. We will follow up with results of aortogram today. CHETAN NAVARRO Dec 06, 2017 11:10
[2017-12-06] MEDS ORDERED: HEPARIN for IV BOLUS 10,000 UNIT/10 ML VIAL. ONE (11:16)
[2017-12-06] MEDS ORDERED: fentaNYL PF VIAL 100 MCG/2 ML VIAL ONE (11:16)
--- NOTE | 2017-12-06 11:55 | PDOC ---
Renal-Progress Notes Subjective Notes Notes NOTHING NEW History of Present Illness Hx of present illness STABLE Vitals Vitals Vital Signs Date Time Temp Pulse Resp B/P (MAP) Pulse Ox O2 Delivery O2 Flow Rate FiO2 12/06/17 09:38 16 Room Air 12/06/17 07:25 69 84/20 12/06/17 07:00 98.2 97 98.2 Weight Weight [ ] I.O. Intake and Output Intake and Output 12/06/17 07:00 Intake Total 834 ml Output Total 1225 ml Balance -391 ml Blood Product IV Normal Saline Flush 834 ml Output Stool Total 1225 ml Labs Labs Laboratory Tests Test 12/05/17 23:25 12/06/17 04:45 Prothrombin Time 16.5 SEC (11.7-14.0) Prothromb Time International Ratio 1.4 (0.8-1.1) White Blood Count 10.2 x10^3/uL (4.0-11.0) Red Blood Count 2.93 x10^6/uL (3.50-5.40) Hemoglobin 7.9 g/dL (12.0-15.5) Hematocrit 24.0 % (36.0-47.0) Mean Corpuscular Volume 82 fL (79-100) Mean Corpuscular Hemoglobin 27 pg (25-35) Mean Corpuscular Hemoglobin Concent 33 g/dL (31-37) Red Cell Distribution Width 20.0 % (11.5-14.5) Platelet Count 296 x10^3/uL (140-400) Neutrophils (%) (Auto) 65 % (31-73) Lymphocytes (%) (Auto) 14 % (24-48) Monocytes (%) (Auto) 15 % (0-9) Eosinophils (%) (Auto) 4 % (0-3) Basophils (%) (Auto) 1 % (0-3) Neutrophils # (Auto) 6.6 x10^3uL (1.8-7.7) Lymphocytes # (Auto) 1.5 x10^3/uL (1.0-4.8) Monocytes # (Auto) 1.5 x10^3/uL (0.0-1.1) Eosinophils # (Auto) 0.4 x10^3/uL (0.0-0.7) Basophils # (Auto) 0.1 x10^3/uL (0.0-0.2) Sodium Level 143 mmol/L (136-145) Potassium Level 3.0 mmol/L (3.5-5.1) Chloride Level 100 mmol/L (98-107) Carbon Dioxide Level 34 mmol/L (21-32) Anion Gap 9 (6-14) Blood Urea Nitrogen 11 mg/dL (7-20) Creatinine 3.7 mg/dL (0.6-1.0) Estimated GFR (Cockcroft-Gault) 14.5 BUN/Creatinine Ratio 3 (6-20) Glucose Level 90 mg/dL (70-99) Calcium Level 9.0 mg/dL (8.5-10.1) Total Bilirubin 0.7 mg/dL (0.2-1.0) Aspartate Amino Transf (AST/SGOT) 11 U/L (15-37) Alanine Aminotransferase (ALT/SGPT) 14 U/L (14-59) Alkaline Phosphatase 105 U/L (46-116) Total Protein 8.2 g/dL (6.4-8.2) Albumin 3.1 g/dL (3.4-5.0) Albumin/Globulin Ratio 0.6 (1.0-1.7) Micro Micro Microbiology 12/02/17 Blood Culture - Preliminary, Resulted NO GROWTH AFTER 2 DAYS Review of Systems Constitutional: yes: weakness, alert, oriented Ears/Nose/Throat: Yes: no symptom reported Eyes: Yes: no symptom reported Pulmonary: Yes no symptom reported Cardiovascular: Yes no symptom reported Gastrointestional: Yes: no symptom reported Genitourinary: Yes: no symptom reported Musculoskeletal: Yes: no symptom reported Skin: Yes no symptom reported Psychiatric/Neurological: Yes: no symptom reported Endocrine: Yes: no symptom reported Physical Exam General Appearance: no apparent distress Skin: warm Respiratory: decreased breath sounds Heart: S1S2 Abdomen: soft, bowel sounds present Genitourinary: bladder flat Extremities: pulses present Neurology: alert Musculoskeletal: Other Assessment Assessment IMP HYPOTENSION-BETTER ESRD ANEMIA RECENT SEPSIS PLAN HD TOMORROW PAD W/U ABX PER ID DANIELLE ACOSTA MD Dec 06, 2017 11:55
[2017-12-06] MEDS ORDERED: fentaNYL PF VIAL 100 MCG/2 ML VIAL IV ONE (12:15)
[2017-12-06] MEDS ORDERED: NITROGLYCERIN 200 MCG/2 ML SYRINGE FOR CATH/VASC LAB. IART ONE (12:15)
[2017-12-06] MEDS ORDERED: LIDOCAINE WITH 8.4% SOD BICARB 3 ML DISP.SYRIN. IJ ONE (12:15)
[2017-12-06] MEDS ORDERED: HEPARIN for IV BOLUS 10,000 UNIT/10 ML VIAL. IV ONE (12:15)
--- NOTE | 2017-12-06 12:25 | PDOC ---
MODERATE SEDATION ASSESSMENT RISKS/ALTERNATIVES Risks/Alternatives Risks and alternatives of this type of sedation and procedure discussed with: RISK/ALTERNATIVES: Patient H & P ON CHART H & P H & P on chart and reviewed for co-morbid conditions and appropriate labs. H&P ON CHART: Yes STATUS PREG STATUS ASSESSED: Yes MEDS/ALLERGIES REVIEWED Meds/Allergies Reviewed Medications and Allergies including time and route of recently administered narcotics and sedatives. MEDS/ALLERGIES REVIEWED: Yes ASA RATING ASA RATING: III AIRWAY ASSESSMENT Airway Assessment Airway patency, oral function limitations, presence of caps, crowns, dentures, partials, and ability to extend neck assessed. AIRWAY ASSESSMENT: Yes MALLAMPATI SCORE MALLAMPATI SCORE: II PRE-SEDATION ASSESSMENT PRE-SEDATION ASSESSMENT: Yes DANIA COE MD Dec 06, 2017 12:25
--- NOTE | 2017-12-06 12:30 | PDOC ---
BRIEF OPERATIVE NOTE Pre-Op Diagnosis critical limb ischemia Post-Op Diagnosis same Procedure Performed diagnostic angiogram and right AT angioplasty Surgeon Jennifer Anesthesia Type: Conscious Sedation Findings Widely patent aortoiliac arteries, right MARKET EDITOR, SFA and Popliteal arteries. AT patent with a single short significant distal stenosis. AT provides inline flow to DP. Peroneal patent to the ankle but fails to reconstitute the PT which is occluded in it's entirety. Also no collateral flow to the AT from the Peroneal artery. 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 Patient was writhing in pain for the entirety of the examination so a decision was made to treat the distal AT lesion for palliation. Following 2mm angioplasty there is improved angiographic appearance of the distal AT with effective resolution of the patient's pain. This intervention is not expected to improve perfusion significantly enough to ensure viability of the foot however. Complications No immediate DANIA COE MD Dec 06, 2017 12:30
[2017-12-06] MEDS ORDERED: HEPARIN PF 500 UNIT/5 ML DISP.SYRIN. IV ONE ×2 (12:34→12:45)
[2017-12-06] MEDS ORDERED: IODIXANOL 320 MG/ML 100 ML VIAL. IART ONE (12:45)
[2017-12-06] MEDS ORDERED: CONTRAST GIVEN. MC PRN (13:00)
--- NOTE | 2017-12-06 17:31 | PDOC ---
Provider Note Provider Note Aortogram reviewed. Patent vessels with anterior tibial runoff, severe disease in foot. 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 wound care. CASSIUS VAZQUEZ II, MD Dec 06, 2017 17:31
[2017-12-06] MEDS: CINACALCET HCL 30 MG TABLET PO SCH (20:40)
[2017-12-07 03:00] VITALS: BP 85/23
[2017-12-07 04:40] LABS: BASO # 0.1 x10^3/uL (0.0-0.2); BASO % 1 % (0-3); EOS # 0.7 x10^3/uL (0.0-0.7); EOS % 6 % (0-3); HEMATOCRIT 25.1 % (36.0-47.0); HEMOGLOBIN 8.1 g/dL (12.0-15.5); LYMPH # 1.3 x10^3/uL (1.0-4.8); LYMPH % 12 % (24-48); MEAN CORPUSCULAR HEMOGLOBIN 27 pg (25-35); MEAN CORPUSCULAR HGB CONC 32 g/dL (31-37); MEAN CORPUSCULAR VOLUME 83 fL (79-100); MONO # 1.6 x10^3/uL (0.0-1.1); MONO % 14 % (0-9); NEUT # 7.4 x10^3uL (1.8-7.7); NEUT % 67 % (31-73); PLATELET COUNT 307 x10^3/uL (140-400); RED BLOOD COUNT 3.04 x10^6/uL (3.50-5.40); RED CELL DISTRIBUTION WIDTH 20.3 % (11.5-14.5); WHITE BLOOD COUNT 11.1 x10^3/uL (4.0-11.0)
[2017-12-07 04:46] LABS: ALBUMIN 3.1 g/dL (3.4-5.0); CREATININE 5.5 mg/dL (0.6-1.0); GFR 9.1; POTASSIUM 3.3 mmol/L (3.5-5.1)
[2017-12-07] MEDS: MIDODRINE 5 MG TABLET PO SCH ×3 (06:23→18:29)
[2017-12-07] MEDS: HYDROcodone/APAP 7.5/325MG 1 TAB TABLET PO PRN ×2 (06:25→18:23)
[2017-12-07 07:00] VITALS: BP 68/31
[2017-12-07] MEDS: FOLIC/VIT B COMP W-C (RENAL) TABLET. PO SCH (08:27)
[2017-12-07] MEDS: MULTIVITAMIN with MINERAL TABLET. PO SCH (08:27)
[2017-12-07] MEDS: sulfaSALAzine 500 MG TABLET PO SCH ×2 (08:27→20:44)
[2017-12-07] MEDS: CEFTAROLINE FOSAMIL IV SCH ×2 (08:28→20:44)
[2017-12-07] MEDS: NORMAL SALINE IV SCH ×2 (08:28→20:44)
--- NOTE | 2017-12-07 10:13 | PDOC ---
Provider Note Provider Note Subjective: Pt resting comfortably in bed. She had right leg diagnostic angiogram with AT angioplasty yesterday with the following results: "Widely patent aortoiliac arteries, right IT SENIOR SOFTWARE ENGINEER JAVA, SFA and Popliteal arteries. AT patent with a single short significant distal stenosis. AT provides inline flow to DP. Peroneal patent to the ankle but fails to reconstitute the PT which is occluded in it's entirety. Also no collateral flow to the AT from the Peroneal artery. 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 Patient was writhing in pain for the entirety of the examination so a decision was made to treat the distal AT lesion for palliation. Following 2mm angioplasty there is improved angiographic appearance of the distal AT with effective resolution of the patient's pain. This intervention is not expected to improve perfusion significantly enough to ensure viability of the foot however." Dr. Alegre reviewed results. She reports improvement in her foot pain today. Objective: alert, awake, in no apparent distress right foot with no reported tenderness to toe A/P: S/P AT angioplasty. - Patent vessels with anterior tibial runoff, severe disease in foot. AT LOCAL INTERMODAL TRUCK DRIVER successful - No further revascularization is possible per Dr. Alegre. I discussed this with pt. She exhibited understanding and all questions were answered to satisfaction. - We recommend continue wound care at [facility] upon discharge. - We will sign off at this point and be available as needed. CHETAN NAVARRO Dec 07, 2017 10:13
[2017-12-07 11:00] VITALS: BP 75/38
--- NOTE | 2017-12-07 11:02 | RAD ---
Procedure: Diagnostic aortogram and right lower extremity arteriogram with angioplasty the anterior tibial artery Clinical Indication: 77-year-old female with critical ischemia of the right foot Sedation: Conscious sedation was administered with a total intraprocedural [id number] time of 62 minutes. The patient was monitored by a qualified independent observer throughout the time of sedation. Please refer to the medical record for exact doses of medications utilized to achieve moderate sedation. Antibiotics: None Exposure: Kerma-Area Product: 56 Gycm2 Sterility: All elements of maximal sterile barrier technique including the use of a cap, mask, sterile gown, sterile gloves, large sterile sheet, appropriate hand hygiene, and 2% chlorhexidine for cutaneous antisepsis (or acceptable alternative antiseptic per current guidelines) were followed for this procedure. If ultrasound guidance was utilized, sterile ultrasound techniques were followed including use of a sterile probe cover. Consent: The procedure was explained in its entirety to the patient or the patients designated senior outside sales representative by a member of the treatment team, including a discussion of the risks, benefits and commonly accepted alternatives to the procedure, as well as the expected consequences of no therapy whatsoever. Discussion of the risks included, but was not limited to, those that are most frequent and those that are rare but possibly severe or life-threatening, as well as the possibility of unforeseen complications. Technique and Findings: Following informed consent, the patient was prepped and draped in usual sterile fashion. Ultrasound interrogation of the left groin revealed patency of the left common femoral artery. A hardcopy ultrasound image was recorded as a 21-gauge micropuncture needle was used to gain access to this vessel. The needle was exchanged over wire for 5 Egyptian sheath. A flush catheter was advanced in the abdominal aorta and contrast aortography was performed. The aorta is nonaneurysmal and widely patent with minimal atherosclerosis. Single bilateral renal arteries are noted, with a diminutive artery or the right, and an atherosclerotic proximal artery on the left. Superior mesenteric artery is patent as is the celiac artery and the inferior mesenteric artery. The catheter was then retracted to just above the aortic bifurcation and contrast angiography of the pelvis was performed in multiple obliquities. Iliofemoral segments are widely patent with minimal atherosclerotic disease. The catheter was then exchanged for Sos Omni catheter which was used to cross to the contralateral right common femoral artery. This facilitate advancement of the wire into the SFA. The catheter and 5 Egyptian sheath were then exchanged for a long 6 Egyptian sheath which was advanced to the contralateral right common femoral artery. Contrast angiography of the right lower extremity was then performed. The profunda femoral artery, superficial femoral artery, and popliteal artery are all essentially normal and widely patent with minimal atherosclerosis. There is in-line flow to patent anterior tibial and peroneal arteries, with flow continuing from the anterior tibial artery into the dorsalis pedis artery, and from the peroneal artery to the level the ankle. Within the distal anterior tibial artery there is a single focal high-grade stenosis. The peroneal artery does taper to occlusion without reconstituting either the anterior tibial or posterior tibial arteries. The posterior tibial artery is absent throughout its entirety. There is some collateral flow from the geniculate branch to the high posterior tibial distribution. There is marked small vessel disease involving the distal medial leg and foot, with minimal perfusion to the medial midfoot and entire forefoot. Given the extensive small vessel disease and entire obstruction of the posterior tibial artery, endovascular techniques were felt to be futile for the purposes of limb salvage. However, the patient's pain to the forefoot was noted to be excruciating, and refractory to IV nor current pain medication. Consequently, the decision was made to angioplasty the distal anterior tibial artery to hopefully increased perfusion pressure enough to probably the patient's pain. 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 The distal anterior tibial lesion was crossed with a grand slam wire, and the entire anterior tibial artery was angioplastied with a 2 mm x 200 mm angioplasty balloon for 3 minutes. The balloon was deflated and repeat angiography demonstrated excellent angiographic appearance of the distal anterior tibial artery with no residual stenosis. The patient's pain also abated rapidly. All catheters and wires were removed and contrast angiography of the left groin sheath was performed to assess for suitability of a closure device. The sheath was then exchanged for a star close device which was successfully utilized to obtain hemostasis. Complications: No immediate Impression: 1. Widely patent aortoiliac and iliofemoral and popliteal arteries on the right. 2. 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 Peroneal artery tapers to occlusion at the ankle without reconstitution of the distal posterior tibial artery. Anterior tibial artery is patent to the level of the dorsalis pedis, with a single distal high-grade stenosis which was improved following angioplasty. 3. Marked small vessel disease resulting in minimal perfusion to the medial midfoot and entire forefoot, as well as much of the tissues of the medial leg. These were not felt to be amenable to endovascular reconstruction.
--- NOTE | 2017-12-07 11:06 | PDOC ---
Renal-Progress Notes Subjective Notes Notes NONE History of Present Illness Hx of present illness STABLE Vitals Vitals Vital Signs Date Time Temp Pulse Resp B/P (MAP) Pulse Ox O2 Delivery O2 Flow Rate FiO2 12/07/17 07:30 16 Room Air 12/07/17 07:00 98.2 60 68/31 (43) 93 98.2 12/06/17 12:31 2.0 Weight Weight [ ] I.O. Intake and Output Intake and Output 12/07/17 07:00 Intake Total 400 ml Output Total 2190 ml Balance -1790 ml Intake Oral 400 ml Output Urine Total 0 ml Stool Total 2190 ml Labs Labs Laboratory Tests Test 12/07/17 04:20 White Blood Count 11.1 x10^3/uL (4.0-11.0) Red Blood Count 3.04 x10^6/uL (3.50-5.40) Hemoglobin 8.1 g/dL (12.0-15.5) Hematocrit 25.1 % (36.0-47.0) Mean Corpuscular Volume 83 fL (79-100) Mean Corpuscular Hemoglobin 27 pg (25-35) Mean Corpuscular Hemoglobin Concent 32 g/dL (31-37) Red Cell Distribution Width 20.3 % (11.5-14.5) Platelet Count 307 x10^3/uL (140-400) Neutrophils (%) (Auto) 67 % (31-73) Lymphocytes (%) (Auto) 12 % (24-48) Monocytes (%) (Auto) 14 % (0-9) Eosinophils (%) (Auto) 6 % (0-3) Basophils (%) (Auto) 1 % (0-3) Neutrophils # (Auto) 7.4 x10^3uL (1.8-7.7) Lymphocytes # (Auto) 1.3 x10^3/uL (1.0-4.8) Monocytes # (Auto) 1.6 x10^3/uL (0.0-1.1) Eosinophils # (Auto) 0.7 x10^3/uL (0.0-0.7) Basophils # (Auto) 0.1 x10^3/uL (0.0-0.2) Sodium Level 148 mmol/L (136-145) Potassium Level 3.3 mmol/L (3.5-5.1) Chloride Level 103 mmol/L (98-107) Carbon Dioxide Level 29 mmol/L (21-32) Anion Gap 16 (6-14) Blood Urea Nitrogen 21 mg/dL (7-20) Creatinine 5.5 mg/dL (0.6-1.0) Estimated GFR (Cockcroft-Gault) 9.1 Glucose Level 99 mg/dL (70-99) Calcium Level 9.0 mg/dL (8.5-10.1) Phosphorus Level 6.0 mg/dL (2.6-4.7) Albumin 3.1 g/dL (3.4-5.0) Micro Micro Microbiology 12/02/17 Blood Culture - Preliminary, Resulted NO GROWTH AFTER 3 DAYS Review of Systems Constitutional: yes: weakness, alert, oriented Ears/Nose/Throat: Yes: no symptom reported Eyes: Yes: no symptom reported Pulmonary: Yes no symptom reported Cardiovascular: Yes no symptom reported Gastrointestional: Yes: no symptom reported Genitourinary: Yes: no symptom reported Musculoskeletal: Yes: no symptom reported Skin: Yes no symptom reported Psychiatric/Neurological: Yes: no symptom reported Endocrine: Yes: no symptom reported Physical Exam General Appearance: no apparent distress Skin: warm Respiratory: decreased breath sounds Heart: S1S2 Abdomen: soft, bowel sounds present Genitourinary: bladder flat Extremities: pulses present Neurology: alert Musculoskeletal: Other Assessment Assessment IMP HYPOTENSION-BETTER ESRD ANEMIA RECENT SEPSIS PLAN HD TODAY UF TO DW PAD W/U ABX PER ID DANIELLE ACOSTA MD Dec 07, 2017 11:06
--- NOTE | 2017-12-07 11:32 | PDOC ---
Infectious Disease Note Subjective Subjective feeling good ROS ROS no n/v/d/sob Vital Sign Vital Signs Vital Signs Date Time Temp Pulse Resp B/P (MAP) Pulse Ox O2 Delivery O2 Flow Rate FiO2 12/07/17 07:30 16 Room Air 12/07/17 07:00 98.2 60 68/31 (43) 93 98.2 12/06/17 12:31 2.0 Physical Exam PHYSICAL EXAM GENERAL: Sitting in chair, smiling HEENT: Oral cavity dry. Dentures. no conjunc petechia LUNGS: Clear HEART: S1, S2. ABDOMEN: Soft. BS +. Ostomy, nontender EXTREMITIES: Left BKA, stump. Right lateral leg wound, small 1cm, . looks clean , little sanguineous discharge, weak pulse MEMBER OF PARLIAMENT: Arouses easily to name, responds appropriately and follow commands SKIN: No generalized rash. rt big toe tender but not red, swollen or any wound Tunneled HDC (11/16) w/o signs of complications. Left chest PICC (11/26) clean Labs Lab Laboratory Tests Test 12/07/17 04:20 White Blood Count 11.1 x10^3/uL (4.0-11.0) Red Blood Count 3.04 x10^6/uL (3.50-5.40) Hemoglobin 8.1 g/dL (12.0-15.5) Hematocrit 25.1 % (36.0-47.0) Mean Corpuscular Volume 83 fL (79-100) Mean Corpuscular Hemoglobin 27 pg (25-35) Mean Corpuscular Hemoglobin Concent 32 g/dL (31-37) Red Cell Distribution Width 20.3 % (11.5-14.5) Platelet Count 307 x10^3/uL (140-400) Neutrophils (%) (Auto) 67 % (31-73) Lymphocytes (%) (Auto) 12 % (24-48) Monocytes (%) (Auto) 14 % (0-9) Eosinophils (%) (Auto) 6 % (0-3) Basophils (%) (Auto) 1 % (0-3) Neutrophils # (Auto) 7.4 x10^3uL (1.8-7.7) Lymphocytes # (Auto) 1.3 x10^3/uL (1.0-4.8) Monocytes # (Auto) 1.6 x10^3/uL (0.0-1.1) Eosinophils # (Auto) 0.7 x10^3/uL (0.0-0.7) Basophils # (Auto) 0.1 x10^3/uL (0.0-0.2) Sodium Level 148 mmol/L (136-145) Potassium Level 3.3 mmol/L (3.5-5.1) Chloride Level 103 mmol/L (98-107) Carbon Dioxide Level 29 mmol/L (21-32) Anion Gap 16 (6-14) Blood Urea Nitrogen 21 mg/dL (7-20) Creatinine 5.5 mg/dL (0.6-1.0) Estimated GFR (Cockcroft-Gault) 9.1 Glucose Level 99 mg/dL (70-99) Calcium Level 9.0 mg/dL (8.5-10.1) Phosphorus Level 6.0 mg/dL (2.6-4.7) Albumin 3.1 g/dL (3.4-5.0) Micro Microbiology 12/02/17 Blood Culture - Preliminary, Resulted NO GROWTH AFTER 1 DAY Objective Assessment Chronically low BP Sepsis with reported MRSA from 11/21 POA ([facility]) while on Vanc for MRSA bacteremia from previous admission -Repeat BC from 11/22 & NGTD. PHILIP 11/27 neg Hypotension - resolved Right basilar atelectasis versus infiltrate H/O High grade MRSA bacteremia previous admission from 10/31. source infected HD cath,s/p removal. Discharged on vanc -Repeat BC on 11/02, 11/04 & 11/08 positive. BC 11/13 negative -ECHO without evidence of veg H/O infected right HDC cath s/p removal on 11/01 + MRSA. -s/p interval placement of a temp LIJ/HDC on 11/01; removed. -s/p Tunneled HDC placement on 11/16. Leukocytosis - better Resp failure w/ pleural effusion s/p thoracentesis 11/07 with 1/1 liter removed pH 7.51. G/S - Gram variable lillian, no WBC, C/S Neg, was on Zosyn and empiric Zyvox Afib ESRD Anemia Lt BKA Chronic lateral rt leg nonhealing wound,, s/p angio Dysphagia Diarrhea. C. diff neg 11/22 Plan Plan of Care pt has chronically low BP she alert awake and appropriate last neg BC 11/23 pt is on ceftarolin and daptomycin,, can d/c on daptomycin alone cont supportive care DOMONIQUE HARDEN MD Dec 07, 2017 11:32
[2017-12-07] MEDS ORDERED: IV NORMAL SALINE 1000ML BAG 1,000 ML IV PRN ×2 (13:37)
[2017-12-07] MEDS ORDERED: DIALYSIS PATIENT. MC PRN (13:45)
--- NOTE | 2017-12-07 13:48 | PDOC ---
PROGRESS NOTES Chief Complaint Chief Complaint no concerns today Diarrhea Hypotension H/o MRSA bacteremia Sepsis with reported MRSA from 11/21 POA ([facility]) while on Vanc for MRSA bacteremia from previous admission -Repeat BC from 11/22 & NGTD. PHILIP 11/27 neg Hypotension - resolved H/o chronic renal failure H/o HTN H/o CAD History of Present Illness History of Present Illness swtiched over to ceftaroline, stopped dapto Vitals Vitals Vital Signs Date Time Temp Pulse Resp B/P (MAP) Pulse Ox O2 Delivery O2 Flow Rate FiO2 12/07/17 12:35 65 75/38 12/07/17 11:00 98.1 16 96 Room Air 98.1 12/06/17 12:31 2.0 Physical Exam Physical Exam GENERAL: Sitting in chair, smiling HEENT: Oral cavity dry. Dentures. no conjunc petechia LUNGS: Clear HEART: S1, S2. ABDOMEN: Soft. BS +. Ostomy, nontender EXTREMITIES: Left BKA, stump. Right lateral leg wound, small 1cm, . looks clean , little sanguineous discharge, weak pulse CONFORMAL PAD FORMER: Arouses easily to name, responds appropriately and follow commands SKIN: No generalized rash. rt big toe tender but not red, swollen or any wound Tunneled HDC (11/16) w/o signs of complications. Left chest PICC (11/26) clean General: Alert, Oriented X3, Cooperative, No acute distress, mild distress Heart: Regular rate, Normal S1, Normal S2, No murmurs Lungs: Clear Abdomen: Normal bowel sounds, Soft, No tenderness, Other (Left lower abd ostomy ) Extremities: No cyanosis, No edema, Other (Healing later right lower leg ulcer , no skin breakdown on the right toes, occluded shunts in both thighs (no thrill ), weak femoral pulses bilaterally) Skin: No breakdown, No significant lesion Labs LABS Laboratory Tests Test 12/07/17 04:20 White Blood Count 11.1 x10^3/uL (4.0-11.0) Red Blood Count 3.04 x10^6/uL (3.50-5.40) Hemoglobin 8.1 g/dL (12.0-15.5) Hematocrit 25.1 % (36.0-47.0) Mean Corpuscular Volume 83 fL (79-100) Mean Corpuscular Hemoglobin 27 pg (25-35) Mean Corpuscular Hemoglobin Concent 32 g/dL (31-37) Red Cell Distribution Width 20.3 % (11.5-14.5) Platelet Count 307 x10^3/uL (140-400) Neutrophils (%) (Auto) 67 % (31-73) Lymphocytes (%) (Auto) 12 % (24-48) Monocytes (%) (Auto) 14 % (0-9) Eosinophils (%) (Auto) 6 % (0-3) Basophils (%) (Auto) 1 % (0-3) Neutrophils # (Auto) 7.4 x10^3uL (1.8-7.7) Lymphocytes # (Auto) 1.3 x10^3/uL (1.0-4.8) Monocytes # (Auto) 1.6 x10^3/uL (0.0-1.1) Eosinophils # (Auto) 0.7 x10^3/uL (0.0-0.7) Basophils # (Auto) 0.1 x10^3/uL (0.0-0.2) Sodium Level 148 mmol/L (136-145) Potassium Level 3.3 mmol/L (3.5-5.1) Chloride Level 103 mmol/L (98-107) Carbon Dioxide Level 29 mmol/L (21-32) Anion Gap 16 (6-14) Blood Urea Nitrogen 21 mg/dL (7-20) Creatinine 5.5 mg/dL (0.6-1.0) Estimated GFR (Cockcroft-Gault) 9.1 Glucose Level 99 mg/dL (70-99) Calcium Level 9.0 mg/dL (8.5-10.1) Phosphorus Level 6.0 mg/dL (2.6-4.7) Albumin 3.1 g/dL (3.4-5.0) Comment Review of Relevant I have reviewed the following items olivia (where applicable) has been applied. Labs Laboratory Tests Test 12/05/17 23:25 12/06/17 04:45 12/07/17 04:20 Prothrombin Time 16.5 SEC (11.7-14.0) Prothromb Time International Ratio 1.4 (0.8-1.1) White Blood Count 10.2 x10^3/uL (4.0-11.0) 11.1 x10^3/uL (4.0-11.0) Red Blood Count 2.93 x10^6/uL (3.50-5.40) 3.04 x10^6/uL (3.50-5.40) Hemoglobin 7.9 g/dL (12.0-15.5) 8.1 g/dL (12.0-15.5) Hematocrit 24.0 % (36.0-47.0) 25.1 % (36.0-47.0) Mean Corpuscular Volume 82 fL (79-100) 83 fL (79-100) Mean Corpuscular Hemoglobin 27 pg (25-35) 27 pg (25-35) Mean Corpuscular Hemoglobin Concent 33 g/dL (31-37) 32 g/dL (31-37) Red Cell Distribution Width 20.0 % (11.5-14.5) 20.3 % (11.5-14.5) Platelet Count 296 x10^3/uL (140-400) 307 x10^3/uL (140-400) Neutrophils (%) (Auto) 65 % (31-73) 67 % (31-73) Lymphocytes (%) (Auto) 14 % (24-48) 12 % (24-48) Monocytes (%) (Auto) 15 % (0-9) 14 % (0-9) Eosinophils (%) (Auto) 4 % (0-3) 6 % (0-3) Basophils (%) (Auto) 1 % (0-3) 1 % (0-3) Neutrophils # (Auto) 6.6 x10^3uL (1.8-7.7) 7.4 x10^3uL (1.8-7.7) Lymphocytes # (Auto) 1.5 x10^3/uL (1.0-4.8) 1.3 x10^3/uL (1.0-4.8) Monocytes # (Auto) 1.5 x10^3/uL (0.0-1.1) 1.6 x10^3/uL (0.0-1.1) Eosinophils # (Auto) 0.4 x10^3/uL (0.0-0.7) 0.7 x10^3/uL (0.0-0.7) Basophils # (Auto) 0.1 x10^3/uL (0.0-0.2) 0.1 x10^3/uL (0.0-0.2) Sodium Level 143 mmol/L (136-145) 148 mmol/L (136-145) Potassium Level 3.0 mmol/L (3.5-5.1) 3.3 mmol/L (3.5-5.1) Chloride Level 100 mmol/L (98-107) 103 mmol/L (98-107) Carbon Dioxide Level 34 mmol/L (21-32) 29 mmol/L (21-32) Anion Gap 9 (6-14) 16 (6-14) Blood Urea Nitrogen 11 mg/dL (7-20) 21 mg/dL (7-20) Creatinine 3.7 mg/dL (0.6-1.0) 5.5 mg/dL (0.6-1.0) Estimated GFR (Cockcroft-Gault) 14.5 9.1 BUN/Creatinine Ratio 3 (6-20) Glucose Level 90 mg/dL (70-99) 99 mg/dL (70-99) Calcium Level 9.0 mg/dL (8.5-10.1) 9.0 mg/dL (8.5-10.1) Total Bilirubin 0.7 mg/dL (0.2-1.0) Aspartate Amino Transf (AST/SGOT) 11 U/L (15-37) Alanine Aminotransferase (ALT/SGPT) 14 U/L (14-59) Alkaline Phosphatase 105 U/L (46-116) Total Protein 8.2 g/dL (6.4-8.2) Albumin 3.1 g/dL (3.4-5.0) 3.1 g/dL (3.4-5.0) Albumin/Globulin Ratio 0.6 (1.0-1.7) Phosphorus Level 6.0 mg/dL (2.6-4.7) Laboratory Tests Test 12/07/17 04:20 White Blood Count 11.1 x10^3/uL (4.0-11.0) Red Blood Count 3.04 x10^6/uL (3.50-5.40) Hemoglobin 8.1 g/dL (12.0-15.5) Hematocrit 25.1 % (36.0-47.0) Mean Corpuscular Volume 83 fL (79-100) Mean Corpuscular Hemoglobin 27 pg (25-35) Mean Corpuscular Hemoglobin Concent 32 g/dL (31-37) Red Cell Distribution Width 20.3 % (11.5-14.5) Platelet Count 307 x10^3/uL (140-400) Neutrophils (%) (Auto) 67 % (31-73) Lymphocytes (%) (Auto) 12 % (24-48) Monocytes (%) (Auto) 14 % (0-9) Eosinophils (%) (Auto) 6 % (0-3) Basophils (%) (Auto) 1 % (0-3) Neutrophils # (Auto) 7.4 x10^3uL (1.8-7.7) Lymphocytes # (Auto) 1.3 x10^3/uL (1.0-4.8) Monocytes # (Auto) 1.6 x10^3/uL (0.0-1.1) Eosinophils # (Auto) 0.7 x10^3/uL (0.0-0.7) Basophils # (Auto) 0.1 x10^3/uL (0.0-0.2) Sodium Level 148 mmol/L (136-145) Potassium Level 3.3 mmol/L (3.5-5.1) Chloride Level 103 mmol/L (98-107) Carbon Dioxide Level 29 mmol/L (21-32) Anion Gap 16 (6-14) Blood Urea Nitrogen 21 mg/dL (7-20) Creatinine 5.5 mg/dL (0.6-1.0) Estimated GFR (Cockcroft-Gault) 9.1 Glucose Level 99 mg/dL (70-99) Calcium Level 9.0 mg/dL (8.5-10.1) Phosphorus Level 6.0 mg/dL (2.6-4.7) Albumin 3.1 g/dL (3.4-5.0) Microbiology 12/02/17 Blood Culture - Preliminary, Resulted NO GROWTH AFTER 3 DAYS Medications Current Medications Sodium Chloride 500 ml @ 250 mls/hr 1X ONCE IV Last administered on at 23:00; Start 12/02/17 at 23:15; Stop 12/03/17 at 01:14; Status DC Norepinephrine Bitartrate 250 ml @ 0 mls/hr 1X ONCE IV Last administered on at 23:27; Start 12/02/17 at 23:30; Stop 12/02/17 at 23:31; Status DC Ondansetron HCl (Zofran) 4 mg PRN Q8HRS PRN IV NAUSEA/VOMITING; Start at 23:30; Stop 12/03/17 at 23:29; Status DC Morphine Sulfate (Morphine Sulfate) 4 mg PRN Q2HR PRN IV PAIN Last administered on 12/03/17at 01:16; Start 12/02/17 at 23:30; Stop 12/03/17 at 23 :29; Status DC Acetaminophen (Tylenol) 650 mg PRN Q4HRS PRN PO FEVER; Start 12/02/17 at 23:30 ; Stop 12/03/17 at 23:29; Status DC Ceftaroline Fosamil 200 mg/ Sodium Chloride 250 ml @ 250 mls/hr Q12HR IV Last administered on 12/07/17at 08:28; Start 12/03/17 at 00:30 Norepinephrine Bitartrate 250 ml @ 1.875 mls/ hr CONT PRN IV SEE I/O RECORD; Start 12/03/17 at 01:15; Stop 12/04/17 at 15:30; Status DC Pharmacy Consult (C.diff Med Screen By Rx) 1 each 1X ONCE MC ; Start 12/03/17 at 09:00; Stop 12/03/17 at 09:01; Status DC Lactobacillus Rhamnosus (Culturelle) 1 cap BID PO Last administered on at 13:09; Start 12/03/17 at 21:00; Stop 12/04/17 at 14:23; Status DC Acetaminophen (Tylenol Supp) 650 mg PRN Q6HRS PRN [place] MILD PAIN / TEMP; Start 12/03/17 at 10:45 Cinacalcet (Sensipar) 30 mg HS PO Last administered on 12/06/17at 20:40; Start 12/03/17 at 21:00 Diphenoxylate HCl/ Atropine (Lomotil) 1 tab PRN Q8HRS PRN PO DIARRHEA; Start 12/03/17 at 10:45 Vitamin B Complex/ Vitamin C (Kassie-Luann) 1 tab DAILY PO Last administered on at 08:27; Start 12/03/17 at 11:30 Acetaminophen/ Hydrocodone Bitart (Lortab 7.5/325) 1 tab PRN Q8HRS PRN PO MODERATE-SEVERE PAIN Last administered on 12/07/17at 06:25; Start 12/03/17 at 10:45 Artificial Tears (Artificial Tears) 1 drop PRN Q15MIN PRN OU DRY EYE; Start at 10:45 Triamcinolone Acetonide (Kenalog) 1 hanh PRN Q8HRS PRN TP RASH; Start 12/03/17 at 10:45 Midodrine (Proamatine) 10 mg [id number] PO Last administered on 12/07/17at 12:35; Start 12/03/17 at 13:00 Multivitamins (Thera M Plus) 1 tab DAILY PO Last administered on 12/07/17 08: 27; Start 12/04/17 at 09:00 Sulfasalazine (Azulfidine) 500 mg BID PO Last administered on 12/07/17at 08:27 ; Start 12/03/17 at 11:30 Potassium Chloride/Water 50 ml @ 50 mls/hr 1X ONCE IV Last administered on at 13:09; Start 12/03/17 at 12:00; Stop 12/03/17 at 12:59; Status DC Darbepoetin Justin (Aranesp) 60 mcg [id number] SQ Last administered on 12/03/17at 21:48; Start 12/03/17 at 21:00 Heparin Sodium (Porcine) (Heparin Sodium) 5,000 unit Q8HRS SQ Last administered on 12/04/17at 06:01; Start 12/03/17 at 14:00; Stop 12/04/17 at 13 :44; Status DC Daptomycin 250 mg/ Sodium Chloride 50 ml @ 100 mls/hr Q48H IV Last administered on 12/06/17at 08:32; Start 12/04/17 at 09:00 Iodixanol (Visipaque 320) 100 ml STK-MED ONCE .ROUTE ; Start 12/04/17 at 08:38 ; Stop 12/04/17 at 08:39; Status DC Lidocaine/Sodium Bicarbonate (Buffered Lidocaine 1%) 3 ml STK-MED ONCE .ROUTE ; Start 12/04/17 at 08:38; Stop 12/04/17 at 08:39; Status DC Heparin Sodium/ Sodium Chloride 0 ml @ As Directed STK-MED ONCE .ROUTE ; Start 12/04/17 at 08:39; Stop 12/04/17 at 08:40; Status DC Sodium Chloride 1,000 ml @ 1,000 mls/hr Q1H PRN IV hypotension; Start at 08:51; Stop 12/05/17 at 14:50; Status DC Sodium Chloride 1,000 ml @ 400 mls/hr Q2H30M PRN IV PATENCY; Start 12/05/17 at 08:51; Stop 12/05/17 at 20:50; Status DC Info (PHARMACY MONITORING -- do not chart) 1 each PRN DAILY PRN MC SEE COMMENTS ; Start 12/05/17 at 09:00; Status UNV Info (PHARMACY MONITORING -- do not chart) 1 each PRN DAILY PRN MC SEE COMMENTS ; Start 12/05/17 at 09:00; Stop 12/07/17 at 13:44; Status DC Acetaminophen (Tylenol) 650 mg 1X PRN PRN PO PRE-TRANSFUSION; Start 12/05/17 at 10:30; Stop 12/05/17 at 21:00; Status DC Diphenhydramine HCl (Benadryl) 25 mg PRN 1X PRN PO PRE-TRANSFUSION; Start at 10:30; Stop 12/05/17 at 21:00; Status DC Phytonadione (Vitamin K Ampule) 5 mg 1X ONCE SQ Last administered on at 15:11; Start 12/05/17 at 13:00; Stop 12/05/17 at 13:01; Status DC Fentanyl Citrate (Fentanyl 2ml Vial) 25 mcg PRN Q4HRS PRN IV PAIN MILD Last administered on 12/06/17at 01:31; Start 12/05/17 at 22:10 Alprazolam (Xanax) 0.5 mg PRN Q8HRS PRN PO ANXIETY / AGITATION; Start at 02:45 Fentanyl Citrate (Fentanyl 2ml Vial) 50 mcg PRN Q2HR PRN IV PAIN MODERATE TO SEVERE Last administered on 12/06/17at 23:08; Start 12/06/17 at 02:45 Iodixanol (Visipaque 320) 100 ml STK-MED ONCE .ROUTE ; Start 12/06/17 at 10:49 ; Stop 12/06/17 at 10:50; Status DC Lidocaine/Sodium Bicarbonate (Buffered Lidocaine 1%) 3 ml STK-MED ONCE .ROUTE ; Start 12/06/17 at 10:49; Stop 12/06/17 at 10:50; Status DC Heparin Sodium/ Sodium Chloride 1,000 ml @ As Directed STK-MED ONCE .ROUTE ; Start 12/06/17 at 10:49; Stop 12/06/17 at 10:50; Status DC Heparin Sodium/ Sodium Chloride 500 ml @ As Directed STK-MED ONCE .ROUTE ; Start 12/06/17 at 11:02; Stop 12/06/17 at 11:03; Status DC Fentanyl Citrate (Fentanyl 2ml Vial) 100 mcg STK-MED ONCE .ROUTE ; Start at 11:16; Stop 12/06/17 at 11:17; Status DC Heparin Sodium (Porcine) (Heparin Sodium) 10,000 unit STK-MED ONCE .ROUTE ; Start 12/06/17 at 11:16; Stop 12/06/17 at 11:17; Status DC Nitroglycerin (Nitroglycerin) 200 mcg 1X ONCE IART Last administered on at 12:29; Start 12/06/17 at 12:15; Stop 12/06/17 at 12:16; Status DC Heparin Sodium/ Sodium Chloride (HEPARIN for ARTERIAL LINE FLUSH) 1,000 unit 1X ONCE IART Last administered on 12/06/17at 12:29; Start 12/06/17 at 12:15; Stop 12/06/17 at 12:16; Status DC Lidocaine/Sodium Bicarbonate (Buffered Lidocaine 1%) 3 ml 1X ONCE IJ Last administered on 12/06/17at 12:29; Start 12/06/17 at 12:15; Stop 12/06/17 at 12 :16; Status DC Fentanyl Citrate (Fentanyl 2ml Vial) 100 mcg 1X ONCE IV Last administered on 12/06/17at 12:31; Start 12/06/17 at 12:15; Stop 12/06/17 at 12:16; Status DC Heparin Sodium (Porcine) (Heparin Sodium) 4,000 unit 1X ONCE IV Last administered on 12/06/17at 12:33; Start 12/06/17 at 12:15; Stop 12/06/17 at 12 :16; Status DC Heparin Sodium (Porcine) (Hep Lock Adult) 500 unit STK-MED ONCE IV ; Start at 12:34; Stop 12/06/17 at 12:35; Status DC Iodixanol (Visipaque 320) 97 ml 1X ONCE IART Last administered on 12/06/17at 12:38; Start 12/06/17 at 12:45; Stop 12/06/17 at 12:46; Status DC Heparin Sodium (Porcine) (Hep Lock Adult) 500 unit 1X ONCE IV Last administered on 12/06/17at 12:38; Start 12/06/17 at 12:45; Stop 12/06/17 at 12 :46; Status DC Info (CONTRAST GIVEN -- Rx MONITORING) 1 each PRN DAILY PRN MC SEE COMMENTS; Start 12/06/17 at 13:00; Stop 12/08/17 at 12:59 Sodium Chloride 1,000 ml @ 1,000 mls/hr Q1H PRN IV hypotension; Start at 13:37; Stop 12/07/17 at 19:36 Sodium Chloride 1,000 ml @ 400 mls/hr Q2H30M PRN IV PATENCY; Start 12/07/17 at 13:37; Stop 12/08/17 at 01:36 Info (PHARMACY MONITORING -- do not chart) 1 each PRN DAILY PRN MC SEE COMMENTS ; Start 12/07/17 at 13:45 Active Scripts Active Midodrine Hcl 5 Mg Tablet 10 Mg PO [id number] Artificial Tears (Polyvinyl Alcohol) 15 Ml Drops 1 Drop OU PRN Q15MIN PRN 30 Days Acetaminophen Supp (Acetaminophen) 650 Mg Supp.rect 650 Mg [place] PRN Q6HRS PRN 30 Days Hydrocodone-Apap 7.5-325 (Hydrocodone Bit/Acetaminophen) 1 Each Tablet 1 Tab PO PRN Q8HRS PRN 7 Days Reported Multivitamins (Multivitamin) 1 Each Tablet 1 Tab PO DAILY Sensipar (Cinacalcet Hcl) 30 Mg Tablet 1 Tab PO HS Azulfidine (Sulfasalazine) 500 Mg Tablet 500 Mg PO BID Lomotil Tablet (Diphenoxylate Hcl/Atropine) 1 Each Tablet 1 Tab PO PRN Q8HRS Nephro-Luann Tablet (Folic Acid/Vitamin B Comp W-C) 0.8 Mg Tablet 1 Tab PO DAILY Triamcinolone Acetonide 0.1% Cream (Triamcinolone Acetonide) 15 Gm Cream..g. 1 Hanh TP PRN Q8HRS apply to bilat legs topically as needed for skin care Vitals/I & O Vital Sign - Last 24 Hours 12/06/17 12/06/17 12/06/17 12/06/17 14:00 14:21 14:30 15:00 Temp 97.5 97.5 97.5 97.5 97.5 97.5 Pulse 71 72 79 64 Resp 16 16 16 B/P (MAP) 67/37 (47) 75/37 69/36 (47) 76/37 (50) Pulse Ox 90 93 89 O2 Delivery Room Air Room Air Room Air 12/06/17 12/06/17 12/06/17 12/06/17 15:39 16:00 17:31 17:32 Temp 97.5 97.5 Pulse 61 61 Resp 16 16 16 B/P (MAP) 78/40 (53) 78/40 Pulse Ox 94 O2 Delivery Room Air Room Air Room Air 12/06/17 12/06/17 12/06/17 12/06/17 19:00 20:00 20:40 23:00 Temp 99.0 97.5 99.0 97.5 Pulse 62 66 Resp 16 18 16 B/P (MAP) 114/79 (91) 112/50 (70) Pulse Ox 98 90 O2 Delivery Room Air Room Air Room Air Room Air 12/06/17 12/06/17 12/07/17 12/07/17 23:08 23:50 03:00 06:23 Temp 97.9 97.9 Pulse 61 61 Resp 18 18 16 B/P (MAP) 85/23 (43) 85/23 Pulse Ox 94 O2 Delivery Room Air Room Air Room Air 12/07/17 12/07/17 12/07/17 12/07/17 06:25 07:00 07:30 08:00 Temp 98.2 98.2 Pulse 60 Resp 18 18 16 B/P (MAP) 68/31 (43) Pulse Ox 93 O2 Delivery Room Air Room Air Room Air Room Air 12/07/17 12/07/17 11:00 12:35 Temp 98.1 98.1 Pulse 61 65 Resp 16 B/P (MAP) 75/38 (50) 75/38 Pulse Ox 96 O2 Delivery Room Air Intake and Output 12/06/17 12/06/17 12/07/17 15:00 23:00 07:00 Intake Total 450 ml Output Total 1200 ml 700 ml 290 ml Balance -750 ml -700 ml -290 ml Nutrition Consultation Dietary Evaluation: Recommendations by RD: Increase Calorie Intake, Protein supplementation Comments: continue Ensure pudding (buttercotch) w/lunch and dinner continue Magic cup (orange) w/lunch and dinner Continue w/MVI and kassie-luann Expected Outcomes/Goals: PO intake to meet >75% est needs- met, goal ongoing Malnutrition Findings: Body Fat Depletion (Non Severe: Mild Depletion Weight Status: Underweight HERVE ARREGUIN MD Dec 07, 2017 13:48
[2017-12-07 19:00] VITALS: BP 68/37
[2017-12-07] MEDS: CINACALCET HCL 30 MG TABLET PO SCH (20:44)
[2017-12-07 23:00] VITALS: BP 72/32
[2017-12-08] MEDS: HYDROcodone/APAP 7.5/325MG 1 TAB TABLET PO PRN ×3 (02:58→20:59)
[2017-12-08 03:00] VITALS: BP 94/34
[2017-12-08] MEDS: fentaNYL PF VIAL 100 MCG/2 ML VIAL IV PRN ×2 (03:31→16:24)
[2017-12-08] MEDS: MIDODRINE 5 MG TABLET PO SCH ×3 (06:28→18:03)
[2017-12-08 07:15] VITALS: BP 125/37
[2017-12-08] MEDS: MULTIVITAMIN with MINERAL TABLET. PO SCH (10:28)
[2017-12-08] MEDS: NORMAL SALINE IV SCH ×3 (10:28→20:34)
[2017-12-08] MEDS: FOLIC/VIT B COMP W-C (RENAL) TABLET. PO SCH (10:28)
[2017-12-08] MEDS: sulfaSALAzine 500 MG TABLET PO SCH ×2 (10:28→20:34)
[2017-12-08] MEDS: DAPTOMYCIN IV SCH (10:28)
[2017-12-08] MEDS: CEFTAROLINE FOSAMIL IV SCH ×2 (10:29→20:34)
[2017-12-08 11:18] VITALS: BP 151/36
[2017-12-08] MEDS: DIPHENOXYLATE/ATROPINE TABLET. PO PRN (12:43)
--- NOTE | 2017-12-08 12:49 | PDOC ---
PROGRESS NOTES Chief Complaint Chief Complaint Recent sepsis Diarrhea Hypokalemia Hypotension - resolved H/o MRSA bacteremia H/o chronic renal failure H/o HTN H/o CAD History of Present Illness History of Present Illness Pt seen and examined while laying in bed Discussed w/RN Vitals Vitals Vital Signs Date Time Temp Pulse Resp B/P (MAP) Pulse Ox O2 Delivery O2 Flow Rate FiO2 12/08/17 11:18 97.7 62 16 151/36 (74) 96 Room Air 97.7 Physical Exam Physical Exam Neck: Supple, no JVD General: Alert, Oriented X3, Cooperative, No acute distress Heart: Regular rate, Normal S1, Normal S2, No murmurs Lungs: Clear Abdomen: Normal bowel sounds, Soft, No tenderness, Other (Left lower abd ostomy ) Extremities: No cyanosis, No edema, Other (Left BKA, healing right sacral ulcer , mild desquamation of right toes ) Skin: No breakdown, No significant lesion Review of Systems Review of Systems C/o pain in her right toes Denies chest pain, SOB Assessment and Plan Assessmemt and Plan Assessment: Recent sepsis Diarrhea Hypokalemia Hypotension - resolved H/o MRSA bacteremia H/o chronic renal failure H/o HTN H/o CAD Plan: IV abx per ID Labs Replace potassium PT/OT Cont wound care Cont ostomy care Consult podiatry Comment Review of Relevant I have reviewed the following items olivia (where applicable) has been applied. Labs Laboratory Tests Test 12/07/17 04:20 White Blood Count 11.1 x10^3/uL (4.0-11.0) Red Blood Count 3.04 x10^6/uL (3.50-5.40) Hemoglobin 8.1 g/dL (12.0-15.5) Hematocrit 25.1 % (36.0-47.0) Mean Corpuscular Volume 83 fL (79-100) Mean Corpuscular Hemoglobin 27 pg (25-35) Mean Corpuscular Hemoglobin Concent 32 g/dL (31-37) Red Cell Distribution Width 20.3 % (11.5-14.5) Platelet Count 307 x10^3/uL (140-400) Neutrophils (%) (Auto) 67 % (31-73) Lymphocytes (%) (Auto) 12 % (24-48) Monocytes (%) (Auto) 14 % (0-9) Eosinophils (%) (Auto) 6 % (0-3) Basophils (%) (Auto) 1 % (0-3) Neutrophils # (Auto) 7.4 x10^3uL (1.8-7.7) Lymphocytes # (Auto) 1.3 x10^3/uL (1.0-4.8) Monocytes # (Auto) 1.6 x10^3/uL (0.0-1.1) Eosinophils # (Auto) 0.7 x10^3/uL (0.0-0.7) Basophils # (Auto) 0.1 x10^3/uL (0.0-0.2) Sodium Level 148 mmol/L (136-145) Potassium Level 3.3 mmol/L (3.5-5.1) Chloride Level 103 mmol/L (98-107) Carbon Dioxide Level 29 mmol/L (21-32) Anion Gap 16 (6-14) Blood Urea Nitrogen 21 mg/dL (7-20) Creatinine 5.5 mg/dL (0.6-1.0) Estimated GFR (Cockcroft-Gault) 9.1 Glucose Level 99 mg/dL (70-99) Calcium Level 9.0 mg/dL (8.5-10.1) Phosphorus Level 6.0 mg/dL (2.6-4.7) Albumin 3.1 g/dL (3.4-5.0) Microbiology 12/02/17 Blood Culture - Preliminary, Resulted NO GROWTH AFTER 4 DAYS Medications Current Medications Sodium Chloride 500 ml @ 250 mls/hr 1X ONCE IV Last administered on at 23:00; Start 12/02/17 at 23:15; Stop 12/03/17 at 01:14; Status DC Norepinephrine Bitartrate 250 ml @ 0 mls/hr 1X ONCE IV Last administered on at 23:27; Start 12/02/17 at 23:30; Stop 12/02/17 at 23:31; Status DC Ondansetron HCl (Zofran) 4 mg PRN Q8HRS PRN IV NAUSEA/VOMITING; Start at 23:30; Stop 12/03/17 at 23:29; Status DC Morphine Sulfate (Morphine Sulfate) 4 mg PRN Q2HR PRN IV PAIN Last administered on 12/03/17at 01:16; Start 12/02/17 at 23:30; Stop 12/03/17 at 23 :29; Status DC Acetaminophen (Tylenol) 650 mg PRN Q4HRS PRN PO FEVER; Start 12/02/17 at 23:30 ; Stop 12/03/17 at 23:29; Status DC Ceftaroline Fosamil 200 mg/ Sodium Chloride 250 ml @ 250 mls/hr Q12HR IV Last administered on 12/08/17at 10:29; Start 12/03/17 at 00:30 Norepinephrine Bitartrate 250 ml @ 1.875 mls/ hr CONT PRN IV SEE I/O RECORD; Start 12/03/17 at 01:15; Stop 12/04/17 at 15:30; Status DC Pharmacy Consult (C.diff Med Screen By Rx) 1 each 1X ONCE MC ; Start 12/03/17 at 09:00; Stop 12/03/17 at 09:01; Status DC Lactobacillus Rhamnosus (Culturelle) 1 cap BID PO Last administered on at 13:09; Start 12/03/17 at 21:00; Stop 12/04/17 at 14:23; Status DC Acetaminophen (Tylenol Supp) 650 mg PRN Q6HRS PRN MD MILD PAIN / TEMP; Start 12/03/17 at 10:45 Cinacalcet (Sensipar) 30 mg HS PO Last administered on 12/07/17at 20:44; Start 12/03/17 at 21:00 Diphenoxylate HCl/ Atropine (Lomotil) 1 tab PRN Q8HRS PRN PO DIARRHEA; Start 12/03/17 at 10:45 Vitamin B Complex/ Vitamin C (Kassie-Luann) 1 tab DAILY PO Last administered on at 10:28; Start 12/03/17 at 11:30 Acetaminophen/ Hydrocodone Bitart (Lortab 7.5/325) 1 tab PRN Q8HRS PRN PO MODERATE-SEVERE PAIN Last administered on 12/08/17at 10:46; Start 12/03/17 at 10:45 Artificial Tears (Artificial Tears) 1 drop PRN Q15MIN PRN OU DRY EYE; Start at 10:45 Triamcinolone Acetonide (Kenalog) 1 hanh PRN Q8HRS PRN TP RASH; Start 12/03/17 at 10:45 Midodrine (Proamatine) 10 mg [id number] PO Last administered on 12/08/17at 06:28; Start 12/03/17 at 13:00 Multivitamins (Thera M Plus) 1 tab DAILY PO Last administered on 12/08/17at 10: 28; Start 12/04/17 at 09:00 Sulfasalazine (Azulfidine) 500 mg BID PO Last administered on 12/08/17at 10:28 ; Start 12/03/17 at 11:30 Potassium Chloride/Water 50 ml @ 50 mls/hr 1X ONCE IV Last administered on at 13:09; Start 12/03/17 at 12:00; Stop 12/03/17 at 12:59; Status DC Darbepoetin Justin (Aranesp) 60 mcg [id number] SQ Last administered on 12/03/17at 21:48; Start 12/03/17 at 21:00 Heparin Sodium (Porcine) (Heparin Sodium) 5,000 unit Q8HRS SQ Last administered on 12/04/17at 06:01; Start 12/03/17 at 14:00; Stop 12/04/17 at 13 :44; Status DC Daptomycin 250 mg/ Sodium Chloride 50 ml @ 100 mls/hr Q48H IV Last administered on 12/08/17at 10:28; Start 12/04/17 at 09:00 Iodixanol (Visipaque 320) 100 ml STK-MED ONCE .ROUTE ; Start 12/04/17 at 08:38 ; Stop 12/04/17 at 08:39; Status DC Lidocaine/Sodium Bicarbonate (Buffered Lidocaine 1%) 3 ml STK-MED ONCE .ROUTE ; Start 12/04/17 at 08:38; Stop 12/04/17 at 08:39; Status DC Heparin Sodium/ Sodium Chloride 0 ml @ As Directed STK-MED ONCE .ROUTE ; Start 12/04/17 at 08:39; Stop 12/04/17 at 08:40; Status DC Sodium Chloride 1,000 ml @ 1,000 mls/hr Q1H PRN IV hypotension; Start at 08:51; Stop 12/05/17 at 14:50; Status DC Sodium Chloride 1,000 ml @ 400 mls/hr Q2H30M PRN IV PATENCY; Start 12/05/17 at 08:51; Stop 12/05/17 at 20:50; Status DC Info (PHARMACY MONITORING -- do not chart) 1 each PRN DAILY PRN MC SEE COMMENTS ; Start 12/05/17 at 09:00; Status UNV Info (PHARMACY MONITORING -- do not chart) 1 each PRN DAILY PRN MC SEE COMMENTS ; Start 12/05/17 at 09:00; Stop 12/07/17 at 13:44; Status DC Acetaminophen (Tylenol) 650 mg 1X PRN PRN PO PRE-TRANSFUSION; Start 12/05/17 at 10:30; Stop 12/05/17 at 21:00; Status DC Diphenhydramine HCl (Benadryl) 25 mg PRN 1X PRN PO PRE-TRANSFUSION; Start at 10:30; Stop 12/05/17 at 21:00; Status DC Phytonadione (Vitamin K Ampule) 5 mg 1X ONCE SQ Last administered on at 15:11; Start 12/05/17 at 13:00; Stop 12/05/17 at 13:01; Status DC Fentanyl Citrate (Fentanyl 2ml Vial) 25 mcg PRN Q4HRS PRN IV PAIN MILD Last administered on 12/08/17at 03:31; Start 12/05/17 at 22:10 Alprazolam (Xanax) 0.5 mg PRN Q8HRS PRN PO ANXIETY / AGITATION; Start at 02:45 Fentanyl Citrate (Fentanyl 2ml Vial) 50 mcg PRN Q2HR PRN IV PAIN MODERATE TO SEVERE Last administered on 12/06/17at 23:08; Start 12/06/17 at 02:45 Iodixanol (Visipaque 320) 100 ml STK-MED ONCE .ROUTE ; Start 12/06/17 at 10:49 ; Stop 12/06/17 at 10:50; Status DC Lidocaine/Sodium Bicarbonate (Buffered Lidocaine 1%) 3 ml STK-MED ONCE .ROUTE ; Start 12/06/17 at 10:49; Stop 12/06/17 at 10:50; Status DC Heparin Sodium/ Sodium Chloride 1,000 ml @ As Directed STK-MED ONCE .ROUTE ; Start 12/06/17 at 10:49; Stop 12/06/17 at 10:50; Status DC Heparin Sodium/ Sodium Chloride 500 ml @ As Directed STK-MED ONCE .ROUTE ; Start 12/06/17 at 11:02; Stop 12/06/17 at 11:03; Status DC Fentanyl Citrate (Fentanyl 2ml Vial) 100 mcg STK-MED ONCE .ROUTE ; Start at 11:16; Stop 12/06/17 at 11:17; Status DC Heparin Sodium (Porcine) (Heparin Sodium) 10,000 unit STK-MED ONCE .ROUTE ; Start 12/06/17 at 11:16; Stop 12/06/17 at 11:17; Status DC Nitroglycerin (Nitroglycerin) 200 mcg 1X ONCE IART Last administered on at 12:29; Start 12/06/17 at 12:15; Stop 12/06/17 at 12:16; Status DC Heparin Sodium/ Sodium Chloride (HEPARIN for ARTERIAL LINE FLUSH) 1,000 unit 1X ONCE IART Last administered on 12/06/17at 12:29; Start 12/06/17 at 12:15; Stop 12/06/17 at 12:16; Status DC Lidocaine/Sodium Bicarbonate (Buffered Lidocaine 1%) 3 ml 1X ONCE IJ Last administered on 12/06/17at 12:29; Start 12/06/17 at 12:15; Stop 12/06/17 at 12 :16; Status DC Fentanyl Citrate (Fentanyl 2ml Vial) 100 mcg 1X ONCE IV Last administered on 12/06/17at 12:31; Start 12/06/17 at 12:15; Stop 12/06/17 at 12:16; Status DC Heparin Sodium (Porcine) (Heparin Sodium) 4,000 unit 1X ONCE IV Last administered on 12/06/17at 12:33; Start 12/06/17 at 12:15; Stop 12/06/17 at 12 :16; Status DC Heparin Sodium (Porcine) (Hep Lock Adult) 500 unit STK-MED ONCE IV ; Start at 12:34; Stop 12/06/17 at 12:35; Status DC Iodixanol (Visipaque 320) 97 ml 1X ONCE IART Last administered on 12/06/17at 12:38; Start 12/06/17 at 12:45; Stop 12/06/17 at 12:46; Status DC Heparin Sodium (Porcine) (Hep Lock Adult) 500 unit 1X ONCE IV Last administered on 12/06/17at 12:38; Start 12/06/17 at 12:45; Stop 12/06/17 at 12 :46; Status DC Info (CONTRAST GIVEN -- Rx MONITORING) 1 each PRN DAILY PRN MC SEE COMMENTS; Start 12/06/17 at 13:00; Stop 12/08/17 at 12:59 Sodium Chloride 1,000 ml @ 1,000 mls/hr Q1H PRN IV hypotension; Start at 13:37; Stop 12/07/17 at 19:36; Status DC Sodium Chloride 1,000 ml @ 400 mls/hr Q2H30M PRN IV PATENCY; Start 12/07/17 at 13:37; Stop 12/08/17 at 01:36; Status DC Info (PHARMACY MONITORING -- do not chart) 1 each PRN DAILY PRN MC SEE COMMENTS ; Start 12/07/17 at 13:45 Active Scripts Active Midodrine Hcl 5 Mg Tablet 10 Mg PO [id number] Artificial Tears (Polyvinyl Alcohol) 15 Ml Drops 1 Drop OU PRN Q15MIN PRN 30 Days Acetaminophen Supp (Acetaminophen) 650 Mg Supp.rect 650 Mg MD PRN Q6HRS PRN 30 Days Hydrocodone-Apap 7.5-325 (Hydrocodone Bit/Acetaminophen) 1 Each Tablet 1 Tab PO PRN Q8HRS PRN 7 Days Reported Multivitamins (Multivitamin) 1 Each Tablet 1 Tab PO DAILY Sensipar (Cinacalcet Hcl) 30 Mg Tablet 1 Tab PO HS Azulfidine (Sulfasalazine) 500 Mg Tablet 500 Mg PO BID Lomotil Tablet (Diphenoxylate Hcl/Atropine) 1 Each Tablet 1 Tab PO PRN Q8HRS Nephro-Luann Tablet (Folic Acid/Vitamin B Comp W-C) 0.8 Mg Tablet 1 Tab PO DAILY Triamcinolone Acetonide 0.1% Cream (Triamcinolone Acetonide) 15 Gm Cream..g. 1 Hanh TP PRN Q8HRS apply to bilat legs topically as needed for skin care Vitals/I & O Vital Sign - Last 24 Hours 12/07/17 12/07/17 12/07/17 12/07/17 18:23 18:29 19:00 20:00 Temp 98.2 98.2 Pulse 51 55 Resp 16 16 B/P (MAP) 91/46 68/37 (47) Pulse Ox 96 O2 Delivery Room Air Room Air Room Air 12/07/17 12/08/17 12/08/17 12/08/17 23:00 02:58 03:00 03:31 Temp 98.4 97.9 98.4 97.9 Pulse 57 67 Resp 16 18 16 18 B/P (MAP) 72/32 (45) 94/34 (54) Pulse Ox 97 94 O2 Delivery Room Air Room Air Room Air Room Air 12/08/17 12/08/17 12/08/17 12/08/17 04:15 04:15 06:28 07:15 Temp 98.1 98.1 Pulse 67 61 Resp 16 16 16 B/P (MAP) 94/34 125/37 (66) Pulse Ox 94 O2 Delivery Room Air Room Air Room Air 12/08/17 12/08/17 10:46 11:18 Temp 97.7 97.7 Pulse 62 Resp 20 16 B/P (MAP) 151/36 (74) Pulse Ox 96 O2 Delivery Room Air Room Air Intake and Output 12/07/17 12/07/17 12/08/17 15:00 23:00 07:00 Intake Total 2520 ml 120 ml Output Total 1625 ml 100 ml Balance 895 ml 20 ml Nutrition Consultation Dietary Evaluation: Recommendations by RD: Increase Calorie Intake, Protein supplementation Comments: continue Ensure pudding (buttercotch) w/lunch and dinner continue Magic cup (orange) w/lunch and dinner Continue w/MVI and kassie-luann Expected Outcomes/Goals: PO intake to meet >75% est needs- met, goal ongoing Malnutrition Findings: Body Fat Depletion (Non Severe: Mild Depletion Weight Status: Underweight CASTLE,NIAL K III DO Dec 08, 2017 12:49
[2017-12-08] MEDS ORDERED: POTASSIUM CHLORIDE 20 MEQ TABLET.ER. PO ONE (13:00)
[2017-12-08 14:30] VITALS: BP_SYST 102; BP_SYST 118; BP_DIAS 54; BP_DIAS 55
--- NOTE | 2017-12-08 16:11 | PDOC ---
Infectious Disease Note Subjective Subjective c/o mild right great toe pain Denies redness or swelling Denies F/C/aches/N/V Increase ostomy output ROS ROS per HPI otherwise neg Vital Sign Vital Signs Vital Signs Date Time Temp Pulse Resp B/P (MAP) Pulse Ox O2 Delivery O2 Flow Rate FiO2 12/08/17 14:55 62 151/36 12/08/17 14:30 99.5 16 95 Room Air 99.5 Physical Exam PHYSICAL EXAM GENERAL: Propped up in bed, alert, smiling HEENT: Oral cavity dry. Dentures. no conjunc petechia LUNGS: Clear HEART: S1, S2. ABDOMEN: Soft. BS +. Ostomy, nontender EXTREMITIES: Left BKA, stump. Right lateral leg wound, small 1cm, . looks clean , little sanguineous discharge, weak pulse STENCILER: Arouses easily to name, responds appropriately and follow commands SKIN: No generalized rash. right big toe tender but not red, swollen or any wound Tunneled HDC (11/16) w/o signs of complications. Left chest PICC (11/26) clean Labs Micro Microbiology 12/02/17 Blood Culture - Preliminary, Resulted NO GROWTH AFTER 4 DAYS Objective Assessment Chronically low BP h/o sepsis with reported MRSA from 11/21 POA ([facility]) while on Vanc for MRSA bacteremia from previous admission -Repeat BC from 11/22 & NGTD. PHILIP 11/27 neg H/O High grade MRSA bacteremia previous admission from 10/31. source infected HD cath,s/p removal. Discharged on vanc -Repeat BC on 11/02, 11/04 & 11/08 positive. BC 11/13 negative -ECHO without evidence of veg H/O infected right HDC cath s/p removal on 11/01 + MRSA. -s/p interval placement of a temp [facility]/HDC on 11/01; removed. -s/p Tunneled HDC placement on 11/16. h/o resp failure w/ pleural effusion s/p thoracentesis 11/07 with 1/1 liter removed pH 7.51. 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 C. diff neg 12/03 Plan Plan of Care pt has chronically low BP she alert awake and appropriate last neg BC 11/23 pt is on ceftaroline and daptomycin,, can discharge back to SNF on daptomycin alone Monitor for toxicities cont supportive care weekly CBC, Cr & CPK faxed to our office [phone] f/u appt 1-2 weeks from discharge Patient seen and examined. Chart reviewed in detail. Case discussed with [employer]> Agree with above plan. HARSH IVAN APRN Dec 08, 2017 16:11 RITIKA MARISCAL MD Dec 08, 2017 22:53
[2017-12-08] MEDS: ALPRAZolam 0.5 MG TABLET PO PRN (16:24)
[2017-12-08 19:20] VITALS: BP 146/88
[2017-12-08] MEDS: CINACALCET HCL 30 MG TABLET PO SCH (20:34)
[2017-12-08 23:06] VITALS: BP 123/65
[2017-12-09 02:51] VITALS: BP 145/71
[2017-12-09] MEDS: HYDROcodone/APAP 7.5/325MG 1 TAB TABLET PO PRN ×2 (05:33→21:54)
[2017-12-09 06:41] LABS: BASO # 0.2 x10^3/uL (0.0-0.2); BASO % 1 % (0-3); EOS # 1.1 x10^3/uL (0.0-0.7); EOS % 9 % (0-3); HEMATOCRIT 28.8 % (36.0-47.0); LYMPH # 2.1 x10^3/uL (1.0-4.8); LYMPH % 17 % (24-48); MEAN CORPUSCULAR HEMOGLOBIN 26 pg (25-35); MEAN CORPUSCULAR HGB CONC 31 g/dL (31-37); MEAN CORPUSCULAR VOLUME 83 fL (79-100); MONO % 8 % (0-9); NEUT % 65 % (31-73); PLATELET COUNT 266 x10^3/uL (140-400); RED BLOOD COUNT 3.45 x10^6/uL (3.50-5.40); RED CELL DISTRIBUTION WIDTH 20.5 % (11.5-14.5); WHITE BLOOD COUNT 12.3 x10^3/uL (4.0-11.0)
[2017-12-09 06:49] LABS: CALCIUM 9.8 mg/dL (8.5-10.1); CREATININE 5.1 mg/dL (0.6-1.0); POTASSIUM 3.9 mmol/L (3.5-5.1)
[2017-12-09 07:00] VITALS: BP 80/43
[2017-12-09] MEDS: MIDODRINE 5 MG TABLET PO SCH ×3 (10:27→18:00)
[2017-12-09] MEDS: CEFTAROLINE FOSAMIL IV SCH ×2 (10:27→21:54)
[2017-12-09] MEDS: NORMAL SALINE IV SCH ×2 (10:27→21:54)
[2017-12-09] MEDS: ALPRAZolam 0.5 MG TABLET PO PRN (10:28)
[2017-12-09] MEDS: FOLIC/VIT B COMP W-C (RENAL) TABLET. PO SCH (10:28)
[2017-12-09] MEDS: MULTIVITAMIN with MINERAL TABLET. PO SCH (10:28)
[2017-12-09] MEDS: sulfaSALAzine 500 MG TABLET PO SCH ×2 (10:28→21:54)
[2017-12-09 11:00] VITALS: BP 85/44
[2017-12-09] MEDS: fentaNYL PF VIAL 100 MCG/2 ML VIAL IV PRN (11:05)
--- NOTE | 2017-12-09 14:15 | PDOC ---
PROGRESS NOTES Chief Complaint Chief Complaint Recent sepsis Diarrhea Hypokalemia Hypotension - resolved H/o MRSA bacteremia H/o chronic renal failure H/o HTN H/o CAD History of Present Illness History of Present Illness Pt seen and examined while laying in bed Discussed w/RN Discussed w/pt Vitals Vitals Vital Signs Date Time Temp Pulse Resp B/P (MAP) Pulse Ox O2 Delivery O2 Flow Rate FiO2 12/09/17 11:05 20 Room Air 12/09/17 11:00 98.2 61 85/44 (58) 94 98.2 12/08/17 08:00 2.0 Physical Exam Physical Exam HEENT: Dentures Neck: Supple, no JVD General: Alert, Oriented X3, Cooperative, No acute distress Heart: Regular rate, Normal S1, Normal S2, No murmurs, Other (faint heart sounds) Lungs: Clear Abdomen: Normal bowel sounds, Soft, No tenderness, Other (Left lower abd ostomy ) Extremities: No cyanosis, No edema, Other (Left BKA, healing right sacral ulcer , mild desquamation of right toes ) Skin: No breakdown, No significant lesion Labs LABS Laboratory Tests Test 12/09/17 06:30 White Blood Count 12.3 x10^3/uL (4.0-11.0) Red Blood Count 3.45 x10^6/uL (3.50-5.40) Hemoglobin 9.0 g/dL (12.0-15.5) Hematocrit 28.8 % (36.0-47.0) Mean Corpuscular Volume 83 fL (79-100) Mean Corpuscular Hemoglobin 26 pg (25-35) Mean Corpuscular Hemoglobin Concent 31 g/dL (31-37) Red Cell Distribution Width 20.5 % (11.5-14.5) Platelet Count 266 x10^3/uL (140-400) Neutrophils (%) (Auto) 65 % (31-73) Lymphocytes (%) (Auto) 17 % (24-48) Monocytes (%) (Auto) 8 % (0-9) Eosinophils (%) (Auto) 9 % (0-3) Basophils (%) (Auto) 1 % (0-3) Neutrophils # (Auto) 8.0 x10^3uL (1.8-7.7) Lymphocytes # (Auto) 2.1 x10^3/uL (1.0-4.8) Monocytes # (Auto) 1.0 x10^3/uL (0.0-1.1) Eosinophils # (Auto) 1.1 x10^3/uL (0.0-0.7) Basophils # (Auto) 0.2 x10^3/uL (0.0-0.2) Sodium Level 138 mmol/L (136-145) Potassium Level 3.9 mmol/L (3.5-5.1) Chloride Level 98 mmol/L (98-107) Carbon Dioxide Level 26 mmol/L (21-32) Anion Gap 14 (6-14) Blood Urea Nitrogen 22 mg/dL (7-20) Creatinine 5.1 mg/dL (0.6-1.0) Estimated GFR (Cockcroft-Gault) 10.0 Glucose Level 128 mg/dL (70-99) Calcium Level 9.8 mg/dL (8.5-10.1) Review of Systems Review of Systems C/o continued toe pain Denies chest pain, SOB, abdominal pain Assessment and Plan Assessmemt and Plan Assessment: Recent sepsis Diarrhea Hypokalemia - resolved Hypotension - resolved H/o MRSA bacteremia H/o chronic renal failure H/o HTN H/o CAD Plan: Cont IV abx per ID Labs Cont PT/OT Cont wound care Cont ostomy care Awaiting podiatry consult Comment Review of Relevant I have reviewed the following items olivia (where applicable) has been applied. Labs Laboratory Tests Test 12/09/17 06:30 White Blood Count 12.3 x10^3/uL (4.0-11.0) Red Blood Count 3.45 x10^6/uL (3.50-5.40) Hemoglobin 9.0 g/dL (12.0-15.5) Hematocrit 28.8 % (36.0-47.0) Mean Corpuscular Volume 83 fL (79-100) Mean Corpuscular Hemoglobin 26 pg (25-35) Mean Corpuscular Hemoglobin Concent 31 g/dL (31-37) Red Cell Distribution Width 20.5 % (11.5-14.5) Platelet Count 266 x10^3/uL (140-400) Neutrophils (%) (Auto) 65 % (31-73) Lymphocytes (%) (Auto) 17 % (24-48) Monocytes (%) (Auto) 8 % (0-9) Eosinophils (%) (Auto) 9 % (0-3) Basophils (%) (Auto) 1 % (0-3) Neutrophils # (Auto) 8.0 x10^3uL (1.8-7.7) Lymphocytes # (Auto) 2.1 x10^3/uL (1.0-4.8) Monocytes # (Auto) 1.0 x10^3/uL (0.0-1.1) Eosinophils # (Auto) 1.1 x10^3/uL (0.0-0.7) Basophils # (Auto) 0.2 x10^3/uL (0.0-0.2) Sodium Level 138 mmol/L (136-145) Potassium Level 3.9 mmol/L (3.5-5.1) Chloride Level 98 mmol/L (98-107) Carbon Dioxide Level 26 mmol/L (21-32) Anion Gap 14 (6-14) Blood Urea Nitrogen 22 mg/dL (7-20) Creatinine 5.1 mg/dL (0.6-1.0) Estimated GFR (Cockcroft-Gault) 10.0 Glucose Level 128 mg/dL (70-99) Calcium Level 9.8 mg/dL (8.5-10.1) Laboratory Tests Test 12/09/17 06:30 White Blood Count 12.3 x10^3/uL (4.0-11.0) Red Blood Count 3.45 x10^6/uL (3.50-5.40) Hemoglobin 9.0 g/dL (12.0-15.5) Hematocrit 28.8 % (36.0-47.0) Mean Corpuscular Volume 83 fL (79-100) Mean Corpuscular Hemoglobin 26 pg (25-35) Mean Corpuscular Hemoglobin Concent 31 g/dL (31-37) Red Cell Distribution Width 20.5 % (11.5-14.5) Platelet Count 266 x10^3/uL (140-400) Neutrophils (%) (Auto) 65 % (31-73) Lymphocytes (%) (Auto) 17 % (24-48) Monocytes (%) (Auto) 8 % (0-9) Eosinophils (%) (Auto) 9 % (0-3) Basophils (%) (Auto) 1 % (0-3) Neutrophils # (Auto) 8.0 x10^3uL (1.8-7.7) Lymphocytes # (Auto) 2.1 x10^3/uL (1.0-4.8) Monocytes # (Auto) 1.0 x10^3/uL (0.0-1.1) Eosinophils # (Auto) 1.1 x10^3/uL (0.0-0.7) Basophils # (Auto) 0.2 x10^3/uL (0.0-0.2) Sodium Level 138 mmol/L (136-145) Potassium Level 3.9 mmol/L (3.5-5.1) Chloride Level 98 mmol/L (98-107) Carbon Dioxide Level 26 mmol/L (21-32) Anion Gap 14 (6-14) Blood Urea Nitrogen 22 mg/dL (7-20) Creatinine 5.1 mg/dL (0.6-1.0) Estimated GFR (Cockcroft-Gault) 10.0 Glucose Level 128 mg/dL (70-99) Calcium Level 9.8 mg/dL (8.5-10.1) Microbiology 12/02/17 Blood Culture - Final, Complete NO GROWTH AFTER 5 DAYS Medications Current Medications Sodium Chloride 500 ml @ 250 mls/hr 1X ONCE IV Last administered on at 23:00; Start 12/02/17 at 23:15; Stop 12/03/17 at 01:14; Status DC Norepinephrine Bitartrate 250 ml @ 0 mls/hr 1X ONCE IV Last administered on at 23:27; Start 12/02/17 at 23:30; Stop 12/02/17 at 23:31; Status DC Ondansetron HCl (Zofran) 4 mg PRN Q8HRS PRN IV NAUSEA/VOMITING; Start at 23:30; Stop 12/03/17 at 23:29; Status DC Morphine Sulfate (Morphine Sulfate) 4 mg PRN Q2HR PRN IV PAIN Last administered on 12/03/17at 01:16; Start 12/02/17 at 23:30; Stop 12/03/17 at 23 :29; Status DC Acetaminophen (Tylenol) 650 mg PRN Q4HRS PRN PO FEVER; Start 12/02/17 at 23:30 ; Stop 12/03/17 at 23:29; Status DC Ceftaroline Fosamil 200 mg/ Sodium Chloride 250 ml @ 250 mls/hr Q12HR IV Last administered on 12/09/17at 10:27; Start 12/03/17 at 00:30 Norepinephrine Bitartrate 250 ml @ 1.875 mls/ hr CONT PRN IV SEE I/O RECORD; Start 12/03/17 at 01:15; Stop 12/04/17 at 15:30; Status DC Pharmacy Consult (C.diff Med Screen By Rx) 1 each 1X ONCE MC ; Start 12/03/17 at 09:00; Stop 12/03/17 at 09:01; Status DC Lactobacillus Rhamnosus (Culturelle) 1 cap BID PO Last administered on at 13:09; Start 12/03/17 at 21:00; Stop 12/04/17 at 14:23; Status DC Acetaminophen (Tylenol Supp) 650 mg PRN Q6HRS PRN SD MILD PAIN / TEMP; Start 12/03/17 at 10:45 Cinacalcet (Sensipar) 30 mg HS PO Last administered on 12/08/17at 20:34; Start 12/03/17 at 21:00 Diphenoxylate HCl/ Atropine (Lomotil) 1 tab PRN Q8HRS PRN PO DIARRHEA Last administered on 12/08/17at 12:43; Start 12/03/17 at 10:45 Vitamin B Complex/ Vitamin C (Kassie-Luann) 1 tab DAILY PO Last administered on at 10:28; Start 12/03/17 at 11:30 Acetaminophen/ Hydrocodone Bitart (Lortab 7.5/325) 1 tab PRN Q8HRS PRN PO MODERATE-SEVERE PAIN Last administered on 12/09/17at 05:33; Start 12/03/17 at 10:45 Artificial Tears (Artificial Tears) 1 drop PRN Q15MIN PRN OU DRY EYE; Start at 10:45 Triamcinolone Acetonide (Kenalog) 1 hanh PRN Q8HRS PRN TP RASH; Start 12/03/17 at 10:45 Midodrine (Proamatine) 10 mg [id number] PO Last administered on 12/09/17at 10:27; Start 12/03/17 at 13:00 Multivitamins (Thera M Plus) 1 tab DAILY PO Last administered on 12/09/17at 10: 28; Start 12/04/17 at 09:00 Sulfasalazine (Azulfidine) 500 mg BID PO Last administered on 12/09/17at 10:28 ; Start 12/03/17 at 11:30 Potassium Chloride/Water 50 ml @ 50 mls/hr 1X ONCE IV Last administered on at 13:09; Start 12/03/17 at 12:00; Stop 12/03/17 at 12:59; Status DC Darbepoetin Justin (Aranesp) 60 mcg WEEKLYHS SQ Last administered on 12/03/17at 21:48; Start 12/03/17 at 21:00 Heparin Sodium (Porcine) (Heparin Sodium) 5,000 unit Q8HRS SQ Last administered on 12/04/17at 06:01; Start 12/03/17 at 14:00; Stop 12/04/17 at 13 :44; Status DC Daptomycin 250 mg/ Sodium Chloride 50 ml @ 100 mls/hr Q48H IV Last administered on 12/08/17at 10:28; Start 12/04/17 at 09:00 Iodixanol (Visipaque 320) 100 ml STK-MED ONCE .ROUTE ; Start 12/04/17 at 08:38 ; Stop 12/04/17 at 08:39; Status DC Lidocaine/Sodium Bicarbonate (Buffered Lidocaine 1%) 3 ml STK-MED ONCE .ROUTE ; Start 12/04/17 at 08:38; Stop 12/04/17 at 08:39; Status DC Heparin Sodium/ Sodium Chloride 0 ml @ As Directed STK-MED ONCE .ROUTE ; Start 12/04/17 at 08:39; Stop 12/04/17 at 08:40; Status DC Sodium Chloride 1,000 ml @ 1,000 mls/hr Q1H PRN IV hypotension; Start at 08:51; Stop 12/05/17 at 14:50; Status DC Sodium Chloride 1,000 ml @ 400 mls/hr Q2H30M PRN IV PATENCY; Start 12/05/17 at 08:51; Stop 12/05/17 at 20:50; Status DC Info (PHARMACY MONITORING -- do not chart) 1 each PRN DAILY PRN MC SEE COMMENTS ; Start 12/05/17 at 09:00; Status UNV Info (PHARMACY MONITORING -- do not chart) 1 each PRN DAILY PRN MC SEE COMMENTS ; Start 12/05/17 at 09:00; Stop 12/07/17 at 13:44; Status DC Acetaminophen (Tylenol) 650 mg 1X PRN PRN PO PRE-TRANSFUSION; Start 12/05/17 at 10:30; Stop 12/05/17 at 21:00; Status DC Diphenhydramine HCl (Benadryl) 25 mg PRN 1X PRN PO PRE-TRANSFUSION; Start at 10:30; Stop 12/05/17 at 21:00; Status DC Phytonadione (Vitamin K Ampule) 5 mg 1X ONCE SQ Last administered on at 15:11; Start 12/05/17 at 13:00; Stop 12/05/17 at 13:01; Status DC Fentanyl Citrate (Fentanyl 2ml Vial) 25 mcg PRN Q4HRS PRN IV PAIN MILD Last administered on 12/09/17at 11:05; Start 12/05/17 at 22:10 Alprazolam (Xanax) 0.5 mg PRN Q8HRS PRN PO ANXIETY / AGITATION Last administered on 12/09/17at 10:28; Start 12/06/17 at 02:45 Fentanyl Citrate (Fentanyl 2ml Vial) 50 mcg PRN Q2HR PRN IV PAIN MODERATE TO SEVERE Last administered on 12/06/17at 23:08; Start 12/06/17 at 02:45 Iodixanol (Visipaque 320) 100 ml STK-MED ONCE .ROUTE ; Start 12/06/17 at 10:49 ; Stop 12/06/17 at 10:50; Status DC Lidocaine/Sodium Bicarbonate (Buffered Lidocaine 1%) 3 ml STK-MED ONCE .ROUTE ; Start 12/06/17 at 10:49; Stop 12/06/17 at 10:50; Status DC Heparin Sodium/ Sodium Chloride 1,000 ml @ As Directed STK-MED ONCE .ROUTE ; Start 12/06/17 at 10:49; Stop 12/06/17 at 10:50; Status DC Heparin Sodium/ Sodium Chloride 500 ml @ As Directed STK-MED ONCE .ROUTE ; Start 12/06/17 at 11:02; Stop 12/06/17 at 11:03; Status DC Fentanyl Citrate (Fentanyl 2ml Vial) 100 mcg STK-MED ONCE .ROUTE ; Start at 11:16; Stop 12/06/17 at 11:17; Status DC Heparin Sodium (Porcine) (Heparin Sodium) 10,000 unit STK-MED ONCE .ROUTE ; Start 12/06/17 at 11:16; Stop 12/06/17 at 11:17; Status DC Nitroglycerin (Nitroglycerin) 200 mcg 1X ONCE IART Last administered on at 12:29; Start 12/06/17 at 12:15; Stop 12/06/17 at 12:16; Status DC Heparin Sodium/ Sodium Chloride (HEPARIN for ARTERIAL LINE FLUSH) 1,000 unit 1X ONCE IART Last administered on 12/06/17at 12:29; Start 12/06/17 at 12:15; Stop 12/06/17 at 12:16; Status DC Lidocaine/Sodium Bicarbonate (Buffered Lidocaine 1%) 3 ml 1X ONCE IJ Last administered on 12/06/17at 12:29; Start 12/06/17 at 12:15; Stop 12/06/17 at 12 :16; Status DC Fentanyl Citrate (Fentanyl 2ml Vial) 100 mcg 1X ONCE IV Last administered on 12/06/17at 12:31; Start 12/06/17 at 12:15; Stop 12/06/17 at 12:16; Status DC Heparin Sodium (Porcine) (Heparin Sodium) 4,000 unit 1X ONCE IV Last administered on 12/06/17at 12:33; Start 12/06/17 at 12:15; Stop 12/06/17 at 12 :16; Status DC Heparin Sodium (Porcine) (Hep Lock Adult) 500 unit STK-MED ONCE IV ; Start at 12:34; Stop 12/06/17 at 12:35; Status DC Iodixanol (Visipaque 320) 97 ml 1X ONCE IART Last administered on 12/06/17at 12:38; Start 12/06/17 at 12:45; Stop 12/06/17 at 12:46; Status DC Heparin Sodium (Porcine) (Hep Lock Adult) 500 unit 1X ONCE IV Last administered on 12/06/17at 12:38; Start 12/06/17 at 12:45; Stop 12/06/17 at 12 :46; Status DC Info (CONTRAST GIVEN -- Rx MONITORING) 1 each PRN DAILY PRN MC SEE COMMENTS; Start 12/06/17 at 13:00; Stop 12/08/17 at 12:59; Status DC Sodium Chloride 1,000 ml @ 1,000 mls/hr Q1H PRN IV hypotension; Start at 13:37; Stop 12/07/17 at 19:36; Status DC Sodium Chloride 1,000 ml @ 400 mls/hr Q2H30M PRN IV PATENCY; Start 12/07/17 at 13:37; Stop 12/08/17 at 01:36; Status DC Info (PHARMACY MONITORING -- do not chart) 1 each PRN DAILY PRN MC SEE COMMENTS ; Start 12/07/17 at 13:45 Potassium Chloride (Klor-Con) 40 meq 1X ONCE PO Last administered on at 14:56; Start 12/08/17 at 13:00; Stop 12/08/17 at 13:02; Status DC Active Scripts Active Midodrine Hcl 5 Mg Tablet 10 Mg PO [id number] Artificial Tears (Polyvinyl Alcohol) 15 Ml Drops 1 Drop OU PRN Q15MIN PRN 30 Days Acetaminophen Supp (Acetaminophen) 650 Mg Supp.rect 650 Mg SD PRN Q6HRS PRN 30 Days Hydrocodone-Apap 7.5-325 (Hydrocodone Bit/Acetaminophen) 1 Each Tablet 1 Tab PO PRN Q8HRS PRN 7 Days Reported Multivitamins (Multivitamin) 1 Each Tablet 1 Tab PO DAILY Sensipar (Cinacalcet Hcl) 30 Mg Tablet 1 Tab PO HS Azulfidine (Sulfasalazine) 500 Mg Tablet 500 Mg PO BID Lomotil Tablet (Diphenoxylate Hcl/Atropine) 1 Each Tablet 1 Tab PO PRN Q8HRS Nephro-Luann Tablet (Folic Acid/Vitamin B Comp W-C) 0.8 Mg Tablet 1 Tab PO DAILY Triamcinolone Acetonide 0.1% Cream (Triamcinolone Acetonide) 15 Gm Cream..g. 1 Hanh TP PRN Q8HRS apply to bilat legs topically as needed for skin care Vitals/I & O Vital Sign - Last 24 Hours 12/08/17 12/08/17 12/08/17 10/27/18 14:30 14:55 16:24 16:54 Temp 99.5 99.5 Pulse 72 62 Resp 16 20 20 B/P (MAP) 118/55 (76) 151/36 Pulse Ox 95 95 O2 Delivery Room Air Room Air Room Air 12/08/17 12/08/17 12/08/17 12/08/17 18:03 19:20 20:00 20:59 Temp 97.8 97.8 Pulse 62 62 Resp 18 18 B/P (MAP) 151/36 146/88 (107) Pulse Ox 98 98 O2 Delivery Room Air Room Air Room Air 12/08/17 12/09/17 12/09/17 12/09/17 23:06 02:51 05:33 06:35 Temp 97.8 97.6 97.8 97.6 Pulse 61 62 Resp 20 18 20 18 B/P (MAP) 123/65 (84) 145/71 (95) Pulse Ox 99 96 96 96 O2 Delivery Room Air Room Air Room Air Room Air 12/09/17 12/09/17 12/09/17 12/09/17 07:00 10:27 11:00 11:05 Temp 98.2 98.2 98.2 98.2 Pulse 58 62 61 Resp 18 18 20 B/P (MAP) 80/43 (55) 145/71 85/44 (58) Pulse Ox 96 94 O2 Delivery Room Air Room Air Room Air Intake and Output 12/08/17 12/08/17 12/09/17 15:00 23:00 07:00 Intake Total 2040 ml 360 ml Output Total 1500 ml 300 ml 300 ml Balance -1500 ml 1740 ml 60 ml Nutrition Consultation Dietary Evaluation: Recommendations by RD: Increase Calorie Intake, Protein supplementation Comments: continue Ensure pudding (buttercotch) w/lunch and dinner continue Magic cup (orange) w/lunch and dinner Continue w/MVI and kassie-luann Expected Outcomes/Goals: PO intake to meet >75% est needs- met, goal ongoing Malnutrition Findings: Body Fat Depletion (Non Severe: Mild Depletion Weight Status: Underweight CASTLE,NIAL K III DO Dec 09, 2017 14:15
[2017-12-09 15:00] VITALS: BP 82/48
[2017-12-09 19:25] VITALS: BP 108/52
[2017-12-09] MEDS: CINACALCET HCL 30 MG TABLET PO SCH (21:54)
[2017-12-09 23:29] VITALS: BP 110/56
[2017-12-10 03:21] VITALS: BP 121/59
[2017-12-10] MEDS: MIDODRINE 5 MG TABLET PO SCH ×3 (06:12→18:03)
[2017-12-10] MEDS: HYDROcodone/APAP 7.5/325MG 1 TAB TABLET PO PRN (06:12)
[2017-12-10 06:46] LABS: BASO # 0.1 x10^3/uL (0.0-0.2); BASO % 1 % (0-3); EOS # 1.2 x10^3/uL (0.0-0.7); EOS % 10 % (0-3); HEMATOCRIT 27.3 % (36.0-47.0); HEMOGLOBIN 8.7 g/dL (12.0-15.5); LYMPH # 2.1 x10^3/uL (1.0-4.8); LYMPH % 19 % (24-48); MEAN CORPUSCULAR HEMOGLOBIN 26 pg (25-35); MEAN CORPUSCULAR HGB CONC 32 g/dL (31-37); MEAN CORPUSCULAR VOLUME 82 fL (79-100); MONO # 0.8 x10^3/uL (0.0-1.1); MONO % 7 % (0-9); NEUT # 6.9 x10^3uL (1.8-7.7); NEUT % 63 % (31-73); PLATELET COUNT 231 x10^3/uL (140-400); RED BLOOD COUNT 3.33 x10^6/uL (3.50-5.40); RED CELL DISTRIBUTION WIDTH 20.1 % (11.5-14.5); WHITE BLOOD COUNT 11.1 x10^3/uL (4.0-11.0)
[2017-12-10 06:50] LABS: CALCIUM 9.7 mg/dL (8.5-10.1); CREATININE 6.4 mg/dL (0.6-1.0); GFR 7.7; POTASSIUM 4.1 mmol/L (3.5-5.1)
[2017-12-10 07:00] VITALS: BP 121/31
[2017-12-10] MEDS: NORMAL SALINE IV SCH ×3 (10:03→20:55)
[2017-12-10] MEDS: DAPTOMYCIN IV SCH (10:03)
[2017-12-10] MEDS: MULTIVITAMIN with MINERAL TABLET. PO SCH (10:08)
[2017-12-10] MEDS: sulfaSALAzine 500 MG TABLET PO SCH ×2 (10:08→20:55)
[2017-12-10] MEDS: FOLIC/VIT B COMP W-C (RENAL) TABLET. PO SCH (10:08)
[2017-12-10 11:00] VITALS: BP 118/86
[2017-12-10] MEDS: CEFTAROLINE FOSAMIL IV SCH ×2 (12:14→20:55)
[2017-12-10] MEDS ORDERED: IV NORMAL SALINE 1000ML BAG 1,000 ML IV PRN ×2 (12:23)
[2017-12-10] MEDS ORDERED: ACETAMINOPHEN 500 MG TABLET PO PRN (12:30)
[2017-12-10] MEDS ORDERED: ALBUMIN HUMAN 25% 200 ML IV PRN (12:30)
[2017-12-10] MEDS ORDERED: diphenhydrAMINE 50 MG/ML VIAL IV PRN ×2 (12:30)
[2017-12-10] MEDS ORDERED: DIALYSIS PATIENT. MC PRN (12:30)
[2017-12-10] MEDS: fentaNYL PF VIAL 100 MCG/2 ML VIAL IV PRN ×3 (13:02→20:56)
--- NOTE | 2017-12-10 13:06 | PDOC ---
Infectious Disease Note Subjective Subjective Finishing lunch, didn't care for the carrots Feeling alright ROS ROS per HPI otherwise neg Vital Sign Vital Signs Vital Signs Date Time Temp Pulse Resp B/P (MAP) Pulse Ox O2 Delivery O2 Flow Rate FiO2 12/10/17 11:00 96.1 58 18 118/86 (97) 97 Room Air 96.1 12/09/17 08:00 2.0 Physical Exam PHYSICAL EXAM GENERAL: Sitting in the chair, smiling HEENT: Oral cavity dry. LUNGS: Clear HEART: S1, S2. ABDOMEN: Soft. BS +. Ostomy, nontender EXTREMITIES: Left BKA, stump. Right lateral leg wound, small 1cm, . looks clean ,,, weak pulse RESIDENT INTERN: Alert, responds appropriately and follow commands SKIN: No generalized rash. right big toe tender but not red, swollen or any wound Tunneled HDC (11/16) w/o signs of complications. Left chest PICC (11/26) clean Labs Lab Laboratory Tests Test 12/10/17 06:30 White Blood Count 11.1 x10^3/uL (4.0-11.0) Red Blood Count 3.33 x10^6/uL (3.50-5.40) Hemoglobin 8.7 g/dL (12.0-15.5) Hematocrit 27.3 % (36.0-47.0) Mean Corpuscular Volume 82 fL (79-100) Mean Corpuscular Hemoglobin 26 pg (25-35) Mean Corpuscular Hemoglobin Concent 32 g/dL (31-37) Red Cell Distribution Width 20.1 % (11.5-14.5) Platelet Count 231 x10^3/uL (140-400) Neutrophils (%) (Auto) 63 % (31-73) Lymphocytes (%) (Auto) 19 % (24-48) Monocytes (%) (Auto) 7 % (0-9) Eosinophils (%) (Auto) 10 % (0-3) Basophils (%) (Auto) 1 % (0-3) Neutrophils # (Auto) 6.9 x10^3uL (1.8-7.7) Lymphocytes # (Auto) 2.1 x10^3/uL (1.0-4.8) Monocytes # (Auto) 0.8 x10^3/uL (0.0-1.1) Eosinophils # (Auto) 1.2 x10^3/uL (0.0-0.7) Basophils # (Auto) 0.1 x10^3/uL (0.0-0.2) Sodium Level 140 mmol/L (136-145) Potassium Level 4.1 mmol/L (3.5-5.1) Chloride Level 99 mmol/L (98-107) Carbon Dioxide Level 24 mmol/L (21-32) Anion Gap 17 (6-14) Blood Urea Nitrogen 34 mg/dL (7-20) Creatinine 6.4 mg/dL (0.6-1.0) Estimated GFR (Cockcroft-Gault) 7.7 Glucose Level 85 mg/dL (70-99) Calcium Level 9.7 mg/dL (8.5-10.1) Creatine Kinase 17 U/L (26-192) Micro Microbiology 12/02/17 Blood Culture - Preliminary, Resulted NO GROWTH AFTER 4 DAYS Objective Assessment Chronically low BP h/o sepsis with reported MRSA from 11/21 POA ([facility]) while on Vanc for MRSA bacteremia from previous admission -Repeat BC from 11/22 & NGTD. PHILIP 11/27 neg H/O High grade MRSA bacteremia previous admission from 10/31. source infected HD cath,s/p removal. Discharged on vanc -Repeat BC on 11/02, 11/04 & 11/08 positive. BC 11/13 negative -ECHO without evidence of veg H/O infected right HDC cath s/p removal on 11/01 + MRSA. -s/p interval placement of a temp [facility]/HDC on 11/01; removed. -s/p Tunneled HDC placement on 11/16. h/o resp failure w/ pleural effusion s/p thoracentesis 11/07 with 1/1 liter removed pH 7.51. 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 C. diff neg 12/03 Plan Plan of Care pt has chronically low BP she alert awake and appropriate last neg BC 11/23 pt is on ceftaroline and daptomycin,, can discharge back to SNF on daptomycin alone Monitor for toxicities. Recent CK 17 cont supportive care weekly CBC, Cr & CPK faxed to our office [phone] f/u appt 1-2 weeks from discharge D/w RN Patient seen and examined. Chart reviewed in detail. Case discussed with REHABILITATION SUPERVISOR. Agree with above assessment and plan. HARSH IVAN APRN Dec 10, 2017 13:06 MANAN HARDEN MD Dec 10, 2017 14:19
[2017-12-10] MEDS: silver sulfADIAZINE 1% CREAM 25GM TUBE. TP SCH (13:08)
--- NOTE | 2017-12-10 14:28 | PDOC ---
PROGRESS NOTES Chief Complaint Chief Complaint Recent sepsis before this admission with MRSA bacteremia Diarrhea Hypokalemia chronic Hypotension on midodrine H/o MRSA bacteremia ESRD on HD H/o HTN H/o CAD left leg BKA rt big toe pain with extensive distal vascular dz. rt leg small ulcer plan;fu with vascular, did angiogram and angioplasty wo improvement fu with ID, on 2 iv abx fu with sw , need to find a snf for iv abx cont HD on midodrine History of Present Illness History of Present Illness Pt seen and examined while laying in bed Discussed w/RN Discussed w/pt cont rt Vitals Vitals Vital Signs Date Time Temp Pulse Resp B/P (MAP) Pulse Ox O2 Delivery O2 Flow Rate FiO2 12/10/17 13:33 16 Room Air 12/10/17 13:07 53 118/86 12/10/17 11:00 96.1 97 96.1 12/09/17 08:00 2.0 Physical Exam Physical Exam GENERAL: Sitting in the chair, smiling HEENT: Oral cavity dry. LUNGS: Clear HEART: S1, S2. ABDOMEN: Soft. BS +. Ostomy, nontender EXTREMITIES: Left BKA, stump. Right lateral leg wound, small 1cm, . 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 right big toe tender but not red, swollen or any wound Tunneled HDC (11/16) w/o signs of complications. Left chest PICC (11/26) clean General: Alert, Oriented X3, Cooperative, No acute distress Heart: Regular rate, Normal S1, Normal S2, No murmurs, Other (faint heart sounds) Lungs: Clear Abdomen: Normal bowel sounds, Soft, No tenderness, Other (Left lower abd ostomy ) Extremities: No cyanosis, No edema, Other (Left BKA, healing right sacral ulcer , mild desquamation of right toes ) Skin: No breakdown, No significant lesion Labs LABS Laboratory Tests Test 12/10/17 06:30 White Blood Count 11.1 x10^3/uL (4.0-11.0) Red Blood Count 3.33 x10^6/uL (3.50-5.40) Hemoglobin 8.7 g/dL (12.0-15.5) Hematocrit 27.3 % (36.0-47.0) Mean Corpuscular Volume 82 fL (79-100) Mean Corpuscular Hemoglobin 26 pg (25-35) Mean Corpuscular Hemoglobin Concent 32 g/dL (31-37) Red Cell Distribution Width 20.1 % (11.5-14.5) Platelet Count 231 x10^3/uL (140-400) Neutrophils (%) (Auto) 63 % (31-73) Lymphocytes (%) (Auto) 19 % (24-48) Monocytes (%) (Auto) 7 % (0-9) Eosinophils (%) (Auto) 10 % (0-3) Basophils (%) (Auto) 1 % (0-3) Neutrophils # (Auto) 6.9 x10^3uL (1.8-7.7) Lymphocytes # (Auto) 2.1 x10^3/uL (1.0-4.8) Monocytes # (Auto) 0.8 x10^3/uL (0.0-1.1) Eosinophils # (Auto) 1.2 x10^3/uL (0.0-0.7) Basophils # (Auto) 0.1 x10^3/uL (0.0-0.2) Sodium Level 140 mmol/L (136-145) Potassium Level 4.1 mmol/L (3.5-5.1) Chloride Level 99 mmol/L (98-107) Carbon Dioxide Level 24 mmol/L (21-32) Anion Gap 17 (6-14) Blood Urea Nitrogen 34 mg/dL (7-20) Creatinine 6.4 mg/dL (0.6-1.0) Estimated GFR (Cockcroft-Gault) 7.7 Glucose Level 85 mg/dL (70-99) Calcium Level 9.7 mg/dL (8.5-10.1) Creatine Kinase 17 U/L (26-192) Comment Review of Relevant I have reviewed the following items olivia (where applicable) has been applied. Labs Laboratory Tests Test 12/09/17 06:30 12/10/17 06:30 White Blood Count 12.3 x10^3/uL (4.0-11.0) 11.1 x10^3/uL (4.0-11.0) Red Blood Count 3.45 x10^6/uL (3.50-5.40) 3.33 x10^6/uL (3.50-5.40) Hemoglobin 9.0 g/dL (12.0-15.5) 8.7 g/dL (12.0-15.5) Hematocrit 28.8 % (36.0-47.0) 27.3 % (36.0-47.0) Mean Corpuscular Volume 83 fL (79-100) 82 fL (79-100) Mean Corpuscular Hemoglobin 26 pg (25-35) 26 pg (25-35) Mean Corpuscular Hemoglobin Concent 31 g/dL (31-37) 32 g/dL (31-37) Red Cell Distribution Width 20.5 % (11.5-14.5) 20.1 % (11.5-14.5) Platelet Count 266 x10^3/uL (140-400) 231 x10^3/uL (140-400) Neutrophils (%) (Auto) 65 % (31-73) 63 % (31-73) Lymphocytes (%) (Auto) 17 % (24-48) 19 % (24-48) Monocytes (%) (Auto) 8 % (0-9) 7 % (0-9) Eosinophils (%) (Auto) 9 % (0-3) 10 % (0-3) Basophils (%) (Auto) 1 % (0-3) 1 % (0-3) Neutrophils # (Auto) 8.0 x10^3uL (1.8-7.7) 6.9 x10^3uL (1.8-7.7) Lymphocytes # (Auto) 2.1 x10^3/uL (1.0-4.8) 2.1 x10^3/uL (1.0-4.8) Monocytes # (Auto) 1.0 x10^3/uL (0.0-1.1) 0.8 x10^3/uL (0.0-1.1) Eosinophils # (Auto) 1.1 x10^3/uL (0.0-0.7) 1.2 x10^3/uL (0.0-0.7) Basophils # (Auto) 0.2 x10^3/uL (0.0-0.2) 0.1 x10^3/uL (0.0-0.2) Sodium Level 138 mmol/L (136-145) 140 mmol/L (136-145) Potassium Level 3.9 mmol/L (3.5-5.1) 4.1 mmol/L (3.5-5.1) Chloride Level 98 mmol/L (98-107) 99 mmol/L (98-107) Carbon Dioxide Level 26 mmol/L (21-32) 24 mmol/L (21-32) Anion Gap 14 (6-14) 17 (6-14) Blood Urea Nitrogen 22 mg/dL (7-20) 34 mg/dL (7-20) Creatinine 5.1 mg/dL (0.6-1.0) 6.4 mg/dL (0.6-1.0) Estimated GFR (Cockcroft-Gault) 10.0 7.7 Glucose Level 128 mg/dL (70-99) 85 mg/dL (70-99) Calcium Level 9.8 mg/dL (8.5-10.1) 9.7 mg/dL (8.5-10.1) Creatine Kinase 17 U/L (26-192) Laboratory Tests Test 12/10/17 06:30 White Blood Count 11.1 x10^3/uL (4.0-11.0) Red Blood Count 3.33 x10^6/uL (3.50-5.40) Hemoglobin 8.7 g/dL (12.0-15.5) Hematocrit 27.3 % (36.0-47.0) Mean Corpuscular Volume 82 fL (79-100) Mean Corpuscular Hemoglobin 26 pg (25-35) Mean Corpuscular Hemoglobin Concent 32 g/dL (31-37) Red Cell Distribution Width 20.1 % (11.5-14.5) Platelet Count 231 x10^3/uL (140-400) Neutrophils (%) (Auto) 63 % (31-73) Lymphocytes (%) (Auto) 19 % (24-48) Monocytes (%) (Auto) 7 % (0-9) Eosinophils (%) (Auto) 10 % (0-3) Basophils (%) (Auto) 1 % (0-3) Neutrophils # (Auto) 6.9 x10^3uL (1.8-7.7) Lymphocytes # (Auto) 2.1 x10^3/uL (1.0-4.8) Monocytes # (Auto) 0.8 x10^3/uL (0.0-1.1) Eosinophils # (Auto) 1.2 x10^3/uL (0.0-0.7) Basophils # (Auto) 0.1 x10^3/uL (0.0-0.2) Sodium Level 140 mmol/L (136-145) Potassium Level 4.1 mmol/L (3.5-5.1) Chloride Level 99 mmol/L (98-107) Carbon Dioxide Level 24 mmol/L (21-32) Anion Gap 17 (6-14) Blood Urea Nitrogen 34 mg/dL (7-20) Creatinine 6.4 mg/dL (0.6-1.0) Estimated GFR (Cockcroft-Gault) 7.7 Glucose Level 85 mg/dL (70-99) Calcium Level 9.7 mg/dL (8.5-10.1) Creatine Kinase 17 U/L (26-192) Microbiology 12/02/17 Blood Culture - Final, Complete NO GROWTH AFTER 5 DAYS Medications Current Medications Sodium Chloride 500 ml @ 250 mls/hr 1X ONCE IV Last administered on at 23:00; Start 12/02/17 at 23:15; Stop 12/03/17 at 01:14; Status DC Norepinephrine Bitartrate 250 ml @ 0 mls/hr 1X ONCE IV Last administered on at 23:27; Start 12/02/17 at 23:30; Stop 12/02/17 at 23:31; Status DC Ondansetron HCl (Zofran) 4 mg PRN Q8HRS PRN IV NAUSEA/VOMITING; Start at 23:30; Stop 12/03/17 at 23:29; Status DC Morphine Sulfate (Morphine Sulfate) 4 mg PRN Q2HR PRN IV PAIN Last administered on 12/03/17at 01:16; Start 12/02/17 at 23:30; Stop 12/03/17 at 23 :29; Status DC Acetaminophen (Tylenol) 650 mg PRN Q4HRS PRN PO FEVER; Start 12/02/17 at 23:30 ; Stop 12/03/17 at 23:29; Status DC Ceftaroline Fosamil 200 mg/ Sodium Chloride 250 ml @ 250 mls/hr Q12HR IV Last administered on 12/10/17at 12:14; Start 12/03/17 at 00:30 Norepinephrine Bitartrate 250 ml @ 1.875 mls/ hr CONT PRN IV SEE I/O RECORD; Start 12/03/17 at 01:15; Stop 12/04/17 at 15:30; Status DC Pharmacy Consult (C.diff Med Screen By Rx) 1 each 1X ONCE MC ; Start 12/03/17 at 09:00; Stop 12/03/17 at 09:01; Status DC Lactobacillus Rhamnosus (Culturelle) 1 cap BID PO Last administered on at 13:09; Start 12/03/17 at 21:00; Stop 12/04/17 at 14:23; Status DC Acetaminophen (Tylenol Supp) 650 mg PRN Q6HRS PRN IA MILD PAIN / TEMP; Start 12/03/17 at 10:45 Cinacalcet (Sensipar) 30 mg HS PO Last administered on 12/09/17at 21:54; Start 12/03/17 at 21:00 Diphenoxylate HCl/ Atropine (Lomotil) 1 tab PRN Q8HRS PRN PO DIARRHEA Last administered on 12/08/17at 12:43; Start 12/03/17 at 10:45 Vitamin B Complex/ Vitamin C (Kassie-Luann) 1 tab DAILY PO Last administered on at 10:08; Start 12/03/17 at 11:30 Acetaminophen/ Hydrocodone Bitart (Lortab 7.5/325) 1 tab PRN Q8HRS PRN PO MODERATE-SEVERE PAIN Last administered on 12/10/17at 06:12; Start 12/03/17 at 10:45 Artificial Tears (Artificial Tears) 1 drop PRN Q15MIN PRN OU DRY EYE; Start at 10:45 Triamcinolone Acetonide (Kenalog) 1 hanh PRN Q8HRS PRN TP RASH; Start 12/03/17 at 10:45 Midodrine (Proamatine) 10 mg [id number] PO Last administered on 12/10/17at 13:07; Start 12/03/17 at 13:00 Multivitamins (Thera M Plus) 1 tab DAILY PO Last administered on 12/10/17at 10: 08; Start 12/04/17 at 09:00 Sulfasalazine (Azulfidine) 500 mg BID PO Last administered on 12/10/17at 10:08 ; Start 12/03/17 at 11:30 Potassium Chloride/Water 50 ml @ 50 mls/hr 1X ONCE IV Last administered on at 13:09; Start 12/03/17 at 12:00; Stop 12/03/17 at 12:59; Status DC Darbepoetin Justin (Aranesp) 60 mcg WEEKLYHS SQ Last administered on 12/03/17at 21:48; Start 12/03/17 at 21:00 Heparin Sodium (Porcine) (Heparin Sodium) 5,000 unit Q8HRS SQ Last administered on 12/04/17at 06:01; Start 12/03/17 at 14:00; Stop 12/04/17 at 13 :44; Status DC Daptomycin 250 mg/ Sodium Chloride 50 ml @ 100 mls/hr Q48H IV Last administered on 12/10/17at 10:03; Start 12/04/17 at 09:00 Iodixanol (Visipaque 320) 100 ml STK-MED ONCE .ROUTE ; Start 12/04/17 at 08:38 ; Stop 12/04/17 at 08:39; Status DC Lidocaine/Sodium Bicarbonate (Buffered Lidocaine 1%) 3 ml STK-MED ONCE .ROUTE ; Start 12/04/17 at 08:38; Stop 12/04/17 at 08:39; Status DC Heparin Sodium/ Sodium Chloride 0 ml @ As Directed STK-MED ONCE .ROUTE ; Start 12/04/17 at 08:39; Stop 12/04/17 at 08:40; Status DC Sodium Chloride 1,000 ml @ 1,000 mls/hr Q1H PRN IV hypotension; Start at 08:51; Stop 12/05/17 at 14:50; Status DC Sodium Chloride 1,000 ml @ 400 mls/hr Q2H30M PRN IV PATENCY; Start 12/05/17 at 08:51; Stop 12/05/17 at 20:50; Status DC Info (PHARMACY MONITORING -- do not chart) 1 each PRN DAILY PRN MC SEE COMMENTS ; Start 12/05/17 at 09:00; Status UNV Info (PHARMACY MONITORING -- do not chart) 1 each PRN DAILY PRN MC SEE COMMENTS ; Start 12/05/17 at 09:00; Stop 12/07/17 at 13:44; Status DC Acetaminophen (Tylenol) 650 mg 1X PRN PRN PO PRE-TRANSFUSION; Start 12/05/17 at 10:30; Stop 12/05/17 at 21:00; Status DC Diphenhydramine HCl (Benadryl) 25 mg PRN 1X PRN PO PRE-TRANSFUSION; Start at 10:30; Stop 12/05/17 at 21:00; Status DC Phytonadione (Vitamin K Ampule) 5 mg 1X ONCE SQ Last administered on at 15:11; Start 12/05/17 at 13:00; Stop 12/05/17 at 13:01; Status DC Fentanyl Citrate (Fentanyl 2ml Vial) 25 mcg PRN Q4HRS PRN IV PAIN MILD Last administered on 12/09/17at 11:05; Start 12/05/17 at 22:10 Alprazolam (Xanax) 0.5 mg PRN Q8HRS PRN PO ANXIETY / AGITATION Last administered on 12/09/17at 10:28; Start 12/06/17 at 02:45 Fentanyl Citrate (Fentanyl 2ml Vial) 50 mcg PRN Q2HR PRN IV PAIN MODERATE TO SEVERE Last administered on 12/10/17at 13:02; Start 12/06/17 at 02:45 Iodixanol (Visipaque 320) 100 ml STK-MED ONCE .ROUTE ; Start 12/06/17 at 10:49 ; Stop 12/06/17 at 10:50; Status DC Lidocaine/Sodium Bicarbonate (Buffered Lidocaine 1%) 3 ml STK-MED ONCE .ROUTE ; Start 12/06/17 at 10:49; Stop 12/06/17 at 10:50; Status DC Heparin Sodium/ Sodium Chloride 1,000 ml @ As Directed STK-MED ONCE .ROUTE ; Start 12/06/17 at 10:49; Stop 12/06/17 at 10:50; Status DC Heparin Sodium/ Sodium Chloride 500 ml @ As Directed STK-MED ONCE .ROUTE ; Start 12/06/17 at 11:02; Stop 12/06/17 at 11:03; Status DC Fentanyl Citrate (Fentanyl 2ml Vial) 100 mcg STK-MED ONCE .ROUTE ; Start at 11:16; Stop 12/06/17 at 11:17; Status DC Heparin Sodium (Porcine) (Heparin Sodium) 10,000 unit STK-MED ONCE .ROUTE ; Start 12/06/17 at 11:16; Stop 12/06/17 at 11:17; Status DC Nitroglycerin (Nitroglycerin) 200 mcg 1X ONCE IART Last administered on at 12:29; Start 12/06/17 at 12:15; Stop 12/06/17 at 12:16; Status DC Heparin Sodium/ Sodium Chloride (HEPARIN for ARTERIAL LINE FLUSH) 1,000 unit 1X ONCE IART Last administered on 12/06/17at 12:29; Start 12/06/17 at 12:15; Stop 12/06/17 at 12:16; Status DC Lidocaine/Sodium Bicarbonate (Buffered Lidocaine 1%) 3 ml 1X ONCE IJ Last administered on 12/06/17at 12:29; Start 12/06/17 at 12:15; Stop 12/06/17 at 12 :16; Status DC Fentanyl Citrate (Fentanyl 2ml Vial) 100 mcg 1X ONCE IV Last administered on 12/06/17at 12:31; Start 12/06/17 at 12:15; Stop 12/06/17 at 12:16; Status DC Heparin Sodium (Porcine) (Heparin Sodium) 4,000 unit 1X ONCE IV Last administered on 12/06/17at 12:33; Start 12/06/17 at 12:15; Stop 12/06/17 at 12 :16; Status DC Heparin Sodium (Porcine) (Hep Lock Adult) 500 unit STK-MED ONCE IV ; Start at 12:34; Stop 12/06/17 at 12:35; Status DC Iodixanol (Visipaque 320) 97 ml 1X ONCE IART Last administered on 12/06/17at 12:38; Start 12/06/17 at 12:45; Stop 12/06/17 at 12:46; Status DC Heparin Sodium (Porcine) (Hep Lock Adult) 500 unit 1X ONCE IV Last administered on 12/06/17at 12:38; Start 12/06/17 at 12:45; Stop 12/06/17 at 12 :46; Status DC Info (CONTRAST GIVEN -- Rx MONITORING) 1 each PRN DAILY PRN MC SEE COMMENTS; Start 12/06/17 at 13:00; Stop 12/08/17 at 12:59; Status DC Sodium Chloride 1,000 ml @ 1,000 mls/hr Q1H PRN IV hypotension; Start at 13:37; Stop 12/07/17 at 19:36; Status DC Sodium Chloride 1,000 ml @ 400 mls/hr Q2H30M PRN IV PATENCY; Start 12/07/17 at 13:37; Stop 12/08/17 at 01:36; Status DC Info (PHARMACY MONITORING -- do not chart) 1 each PRN DAILY PRN MC SEE COMMENTS ; Start 12/07/17 at 13:45; Status Cancel Potassium Chloride (Klor-Con) 40 meq 1X ONCE PO Last administered on at 14:56; Start 12/08/17 at 13:00; Stop 12/08/17 at 13:02; Status DC Sodium Chloride 1,000 ml @ 1,000 mls/hr Q1H PRN IV hypotension; Start at 12:23; Stop 12/10/17 at 18:22 Albumin Human 200 ml @ 200 mls/hr 1X PRN PRN IV Hypotension; Start 12/10/17 at 12:30; Stop 12/10/17 at 18:29 Acetaminophen (Tylenol) 500 mg 1X PRN PRN PO MILD PAIN / TEMP; Start 12/10/17 at 12:30; Stop 12/11/17 at 12:29 Diphenhydramine HCl (Benadryl) 25 mg 1X PRN PRN IV ITCHING; Start 12/10/17 at 12:30; Stop 12/11/17 at 12:29 Diphenhydramine HCl (Benadryl) 25 mg 1X PRN PRN IV ITCHING; Start 12/10/17 at 12:30; Stop 12/11/17 at 12:29 Sodium Chloride 1,000 ml @ 400 mls/hr Q2H30M PRN IV PATENCY; Start 12/10/17 at 12:23; Stop 12/11/17 at 00:22 Info (PHARMACY MONITORING -- do not chart) 1 each PRN DAILY PRN MC SEE COMMENTS ; Start 12/10/17 at 12:30 Silver Sulfadiazine (Silvadene) 1 hanh DAILY TP Last administered on 12/10/17at 13:08; Start 12/10/17 at 13:30 Active Scripts Active Midodrine Hcl 5 Mg Tablet 10 Mg PO [id number] Artificial Tears (Polyvinyl Alcohol) 15 Ml Drops 1 Drop OU PRN Q15MIN PRN 30 Days Acetaminophen Supp (Acetaminophen) 650 Mg Supp.rect 650 Mg IA PRN Q6HRS PRN 30 Days Hydrocodone-Apap 7.5-325 (Hydrocodone Bit/Acetaminophen) 1 Each Tablet 1 Tab PO PRN Q8HRS PRN 7 Days Reported Multivitamins (Multivitamin) 1 Each Tablet 1 Tab PO DAILY Sensipar (Cinacalcet Hcl) 30 Mg Tablet 1 Tab PO HS Azulfidine (Sulfasalazine) 500 Mg Tablet 500 Mg PO BID Lomotil Tablet (Diphenoxylate Hcl/Atropine) 1 Each Tablet 1 Tab PO PRN Q8HRS Nephro-Luann Tablet (Folic Acid/Vitamin B Comp W-C) 0.8 Mg Tablet 1 Tab PO DAILY Triamcinolone Acetonide 0.1% Cream (Triamcinolone Acetonide) 15 Gm Cream..g. 1 Hanh TP PRN Q8HRS apply to bilat legs topically as needed for skin care Vitals/I & O Vital Sign - Last 24 Hours 12/09/17 12/09/17 12/09/17 12/09/17 15:00 19:25 20:15 21:54 Temp 98.2 97.7 98.2 97.7 Pulse 62 56 Resp 16 20 18 B/P (MAP) 82/48 (59) 108/52 (70) Pulse Ox 97 96 96 O2 Delivery Room Air Room Air Room Air Room Air 12/09/17 12/09/17 12/10/17 12/10/17 22:55 23:29 03:21 06:12 Temp 97.8 97.9 97.8 97.9 Pulse 60 58 Resp 20 18 18 B/P (MAP) 110/56 (74) 121/59 (79) Pulse Ox 95 95 9 9 O2 Delivery Room Air Room Air Room Air 12/10/17 12/10/17 12/10/17 12/10/17 06:12 07:00 07:15 11:00 Temp 96.3 96.1 96.3 96.1 Pulse 58 64 58 Resp 18 16 18 B/P (MAP) 121/59 121/31 (61) 118/86 (97) Pulse Ox 96 97 O2 Delivery Room Air Room Air Room Air 12/10/17 12/10/17 12/10/17 13:02 13:07 13:33 Pulse 53 Resp 16 16 B/P (MAP) 118/86 O2 Delivery Room Air Room Air Intake and Output 12/09/17 12/09/17 12/10/17 15:00 23:00 07:00 Intake Total 120 ml 750 ml 750 ml Output Total 300 ml 800 ml 400 ml Balance -180 ml -50 ml 350 ml Nutrition Consultation Dietary Evaluation: Recommendations by RD: Increase Calorie Intake, Protein supplementation Comments: continue Ensure pudding (buttercotch) w/lunch and dinner continue Magic cup (orange) w/lunch and dinner Continue w/MVI and kassie-luann Expected Outcomes/Goals: PO intake to meet >75% est needs- met, goal ongoing Malnutrition Findings: Body Fat Depletion (Non Severe: Mild Depletion Weight Status: Underweight BEULAH PINK MD Dec 10, 2017 14:28
--- NOTE | 2017-12-10 15:29 | PDOC ---
SUBJECTIVE ROS Seen on HD , No concerns voiced by RN OBJECTIVE Vital Signs Vital Signs Date Time Temp Pulse Resp B/P (MAP) Pulse Ox O2 Delivery O2 Flow Rate FiO2 12/10/17 13:33 16 Room Air 12/10/17 13:07 53 118/86 12/10/17 11:00 96.1 97 96.1 12/09/17 08:00 2.0 I & 0 Intake and Output 12/10/17 07:00 Intake Total 1620 ml Output Total 1500 ml Balance 120 ml Intake Oral 1370 ml IV Total 250 ml Stool Total 1250 ml Other 250 ml PHYSICAL EXAM Physical Exam GENERAL: NAD HEENT: Unremarkable LUNGS: Clear HEART: S1, S2. ABDOMEN: Soft. BS +. Ostomy, nontender EXTREMITIES: Left BKA, stump. 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 -s/p interval placement of a temp [facility]J/HDC on 11/01; removed. -s/p Tunneled HDC placement on 11/16. ID Following Hx of Resp failure w/ pleural effusion s/p thoracentesis Bilat in Oct 2017 Afib- stable Anemia- stable On Aranesp Chronic lateral right leg nonhealing wound,, s/p angio 12/06 Diarrhea. C. diff neg 12/03 COMMENT/RELEVANT DATA Meds Current Medications Medications (Trade) Dose Ordered Sig/Yovanny Start Time Stop Time Status Last Admin Dose Admin Acetaminophen (Tylenol Supp) 650 mg PRN Q6HRS PRN 12/03/17 10:45 Acetaminophen (Tylenol) 500 mg 1X PRN PRN 12/10/17 12:30 12/11/17 12:29 Acetaminophen/ Hydrocodone Bitart (Lortab 7.5/325) 1 tab PRN Q8HRS PRN 12/03/17 10:45 12/10/17 06:12 1 TAB Albumin Human 200 ml @ 200 mls/hr 1X PRN PRN 12/10/17 12:30 12/10/17 18:29 Alprazolam (Xanax) 0.5 mg PRN Q8HRS PRN 12/06/17 02:45 12/09/17 10:28 0.5 MG Artificial Tears (Artificial Tears) 1 drop PRN Q15MIN PRN 12/03/17 10:45 Ceftaroline Fosamil 200 mg/ Sodium Chloride 250 ml @ 250 mls/hr Q12HR 12/03/17 00:30 12/10/17 12:14 250 MLS/HR Cinacalcet (Sensipar) 30 mg HS 12/03/17 21:00 12/09/17 21:54 30 MG Daptomycin 250 mg/ Sodium Chloride 50 ml @ 100 mls/hr Q48H 12/04/17 09:00 12/10/17 10:03 100 MLS/HR Darbepoetin Justin (Aranesp) 60 mcg WEEKLYHS 12/03/17 21:00 12/03/17 21:48 60 MCG Diphenhydramine HCl (Benadryl) 25 mg 1X PRN PRN 12/10/17 12:30 12/11/17 12:29 Diphenoxylate HCl/ Atropine (Lomotil) 1 tab PRN Q8HRS PRN 12/03/17 10:45 12/08/17 12:43 1 TAB Fentanyl Citrate (Fentanyl 2ml Vial) 100 mcg 1X ONCE 12/06/17 12:15 12/06/17 12:16 DC 12/06/17 12:31 100 MCG Heparin Sodium (Porcine) (Hep Lock Adult) 500 unit 1X ONCE 12/06/17 12:45 12/06/17 12:46 DC 12/06/17 12:38 100 UNIT Heparin Sodium (Porcine) (Heparin Sodium) 4,000 unit 1X ONCE 12/06/17 12:15 12/06/17 12:16 DC 12/06/17 12:33 5,000 UNIT Heparin Sodium/ Sodium Chloride (HEPARIN for ARTERIAL LINE FLUSH) 1,000 unit 1X ONCE 12/06/17 12:15 12/06/17 12:16 DC 12/06/17 12:29 1,000 UNIT Info (CONTRAST GIVEN -- Rx MONITORING) 1 each PRN DAILY PRN 12/06/17 13:00 12/08/17 12:59 DC Info (PHARMACY MONITORING -- do not chart) 1 each PRN DAILY PRN 12/10/17 12:30 Iodixanol (Visipaque 320) 97 ml 1X ONCE 12/06/17 12:45 12/06/17 12:46 DC 12/06/17 12:38 97 ML Lactobacillus Rhamnosus (Culturelle) 1 cap BID 12/03/17 21:00 12/04/17 14:23 DC 12/04/17 13:09 1 CAP Lidocaine/Sodium Bicarbonate (Buffered Lidocaine 1%) 3 ml 1X ONCE 12/06/17 12:15 12/06/17 12:16 DC 12/06/17 12:29 6 ML Midodrine (Proamatine) 10 mg [id number] 12/03/17 13:00 12/10/17 13:07 10 MG Morphine Sulfate (Morphine Sulfate) 4 mg PRN Q2HR PRN 12/02/17 23:30 12/03/17 23:29 DC 12/03/17 01:16 4 MG Multivitamins (Thera M Plus) 1 tab DAILY 12/04/17 09:00 12/10/17 10:08 1 TAB Nitroglycerin (Nitroglycerin) 200 mcg 1X ONCE 12/06/17 12:15 12/06/17 12:16 DC 12/06/17 12:29 100 MCG Norepinephrine Bitartrate 250 ml @ 1.875 mls/ hr CONT PRN 12/03/17 01:15 12/04/17 15:30 DC Ondansetron HCl (Zofran) 4 mg PRN Q8HRS PRN 12/02/17 23:30 12/03/17 23:29 DC Pharmacy Consult (C.diff Med Screen By Rx) 1 each 1X ONCE 12/03/17 09:00 12/03/17 09:01 DC Phytonadione (Vitamin K Ampule) 5 mg 1X ONCE 12/05/17 13:00 12/05/17 13:01 DC 12/05/17 15:11 5 MG Potassium Chloride/Water 50 ml @ 50 mls/hr 1X ONCE 12/03/17 12:00 12/03/17 12:59 DC 12/03/17 13:09 50 MLS/HR Potassium Chloride (Klor-Con) 40 meq 1X ONCE 12/08/17 13:00 12/08/17 13:02 DC 12/08/17 14:56 40 MEQ Silver Sulfadiazine (Silvadene) 1 tj DAILY 12/10/17 13:30 12/10/17 13:08 1 TJ Sodium Chloride 1,000 ml @ 400 mls/hr Q2H30M PRN 12/10/17 12:23 12/11/17 00:22 Sulfasalazine (Azulfidine) 500 mg BID 12/03/17 11:30 12/10/17 10:08 500 MG Triamcinolone Acetonide (Kenalog) 1 tj PRN Q8HRS PRN 12/03/17 10:45 Vitamin B Complex/ Vitamin C (Yaneth-Nabeel) 1 tab DAILY 12/03/17 11:30 12/10/17 10:08 1 TAB Lab Laboratory Tests Test 12/10/17 06:30 White Blood Count 11.1 x10^3/uL (4.0-11.0) Red Blood Count 3.33 x10^6/uL (3.50-5.40) Hemoglobin 8.7 g/dL (12.0-15.5) Hematocrit 27.3 % (36.0-47.0) Mean Corpuscular Volume 82 fL (79-100) Mean Corpuscular Hemoglobin 26 pg (25-35) Mean Corpuscular Hemoglobin Concent 32 g/dL (31-37) Red Cell Distribution Width 20.1 % (11.5-14.5) Platelet Count 231 x10^3/uL (140-400) Neutrophils (%) (Auto) 63 % (31-73) Lymphocytes (%) (Auto) 19 % (24-48) Monocytes (%) (Auto) 7 % (0-9) Eosinophils (%) (Auto) 10 % (0-3) Basophils (%) (Auto) 1 % (0-3) Neutrophils # (Auto) 6.9 x10^3uL (1.8-7.7) Lymphocytes # (Auto) 2.1 x10^3/uL (1.0-4.8) Monocytes # (Auto) 0.8 x10^3/uL (0.0-1.1) Eosinophils # (Auto) 1.2 x10^3/uL (0.0-0.7) Basophils # (Auto) 0.1 x10^3/uL (0.0-0.2) Sodium Level 140 mmol/L (136-145) Potassium Level 4.1 mmol/L (3.5-5.1) Chloride Level 99 mmol/L (98-107) Carbon Dioxide Level 24 mmol/L (21-32) Anion Gap 17 (6-14) Blood Urea Nitrogen 34 mg/dL (7-20) Creatinine 6.4 mg/dL (0.6-1.0) Estimated GFR (Cockcroft-Gault) 7.7 Glucose Level 85 mg/dL (70-99) Calcium Level 9.7 mg/dL (8.5-10.1) Creatine Kinase 17 U/L (26-192) Results All relevant outside records, renal labs, imaging studies, telemetry/EKG's were reviewed. YVONNE ZAVALA MD Dec 10, 2017 15:29
--- NOTE | 2017-12-10 16:50 | CONS ---
DATE OF CONSULTATION: 12/10/2017 PODIATRY CONSULTATION REVIEW OF RECORD: This is a 77-year-old female that has been in the hospital and has been readmitted. CHIEF COMPLAINT: Diarrhea, hypertension and history of methicillin-resistant Staphylococcus aureus bacteremia. 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 ALLERGIES: CODEINE. MEDICATIONS: Reviewed. Zofran, morphine, Tylenol, norepinephrine. PHYSICAL EXAMINATION: DERMATOLOGIC: The patient has a right great toenail that is lifting up and upon inspection, there is obviously looseness of the nail plate under that. There is an area of some fluid, i.e., pus, serous drainage. Upon removal of the loose nail plate, the pus is removed. The nail bed appears to be intact. No bone exposed. Other nails on the right foot are mild to moderate in severity. VASCULAR: Pedal pulses are diminished to absent on the right foot and the left leg has a [id number] amputation. MUSCULOSKELETAL: Left [id number] amputation. NEUROLOGIC: The patient appears to have normal sensorium and relates pain upon exam and during treatment. ASSESSMENT: 1. Peripheral vascular disease with amputation of the left leg. 2. Right great toe subungual fluid abscess with nail bed intact. 3. Onychomycosis, onychocryptosis of mild to moderate severity of 2, 3, 4 and 5 toenails, right foot. PLAN: 1. Partial avulsion of the right great toenail to decompress the abscess underneath the nail plate. Applied Silvadene cream and a gauze dressing. I asked the nurse to write an order for continued care. 2. Debridement of all other nails are done with no problem using a rotary drill. No hemorrhage incurred. It appeared from what I understand, she may be considering further vascular surgery of the right leg due to a lateral right leg wound that is having hard time to heal and I am not sure what the status of the vascular consult is and recommendation at this point in time. FRANCINE GUZMAN DPM DR: FCO/radha JOB#: [id number] / [id number]
[2017-12-10 19:25] VITALS: BP 151/59
[2017-12-10] MEDS: CINACALCET HCL 30 MG TABLET PO SCH (20:55)
[2017-12-10] MEDS: DARBEPOETIN ALFA 60 MCG/0.3 ML DISP.SYRIN. SQ SCH (22:28)
[2017-12-10 23:25] VITALS: BP 112/50
[2017-12-11] MEDS: fentaNYL PF VIAL 100 MCG/2 ML VIAL IV PRN ×2 (02:30→06:26)
[2017-12-11 03:28] VITALS: BP 147/39
[2017-12-11 04:42] LABS: BASO # 0.1 x10^3/uL (0.0-0.2); BASO % 1 % (0-3); EOS # 0.8 x10^3/uL (0.0-0.7); EOS % 7 % (0-3); HEMATOCRIT 27.9 % (36.0-47.0); HEMOGLOBIN 9.1 g/dL (12.0-15.5); LYMPH # 1.6 x10^3/uL (1.0-4.8); LYMPH % 13 % (24-48); MEAN CORPUSCULAR HEMOGLOBIN 27 pg (25-35); MEAN CORPUSCULAR HGB CONC 33 g/dL (31-37); MEAN CORPUSCULAR VOLUME 82 fL (79-100); MONO # 0.9 x10^3/uL (0.0-1.1); MONO % 7 % (0-9); NEUT # 8.9 x10^3uL (1.8-7.7); NEUT % 73 % (31-73); PLATELET COUNT 218 x10^3/uL (140-400); RED BLOOD COUNT 3.39 x10^6/uL (3.50-5.40); RED CELL DISTRIBUTION WIDTH 20.2 % (11.5-14.5); WHITE BLOOD COUNT 12.3 x10^3/uL (4.0-11.0)
[2017-12-11 04:56] LABS: CALCIUM 9.9 mg/dL (8.5-10.1); CREATININE 3.2 mg/dL (0.6-1.0); GFR 17.1; POTASSIUM 3.8 mmol/L (3.5-5.1)
[2017-12-11] MEDS: MIDODRINE 5 MG TABLET PO SCH ×3 (06:27→18:48)
[2017-12-11 07:00] VITALS: BP 101/36
[2017-12-11] MEDS: NORMAL SALINE IV SCH ×2 (08:48→20:53)
[2017-12-11] MEDS: CEFTAROLINE FOSAMIL IV SCH ×2 (08:48→20:53)
[2017-12-11] MEDS: silver sulfADIAZINE 1% CREAM 25GM TUBE. TP SCH (08:52)
[2017-12-11] MEDS: MULTIVITAMIN with MINERAL TABLET. PO SCH (08:52)
[2017-12-11 11:00] VITALS: BP 95/41
[2017-12-11] MEDS: sulfaSALAzine 500 MG TABLET PO SCH ×2 (11:11→20:52)
[2017-12-11] MEDS: FOLIC/VIT B COMP W-C (RENAL) TABLET. PO SCH (11:11)
[2017-12-11] MEDS: HYDROcodone/APAP 7.5/325MG 1 TAB TABLET PO PRN ×2 (11:12→20:56)
--- NOTE | 2017-12-11 11:17 | PDOC ---
PROGRESS NOTES Subjective Subjective "My foot feels better because the ingrown toenail is gone." Objective Objective Vascular Surgery Follow Up: O: Lying comfortably in bed. Right foot dependent on bed. Left Groin: Puncture site without hematoma or drainage. RLE: Dressing to great toe dry. Not removed as RN states toenail was just removed. Monophasic dorsalis pedal pulse found with doppler. Unable to find post tibial pulse. Foot warm. Calf soft. Assessment/Plan: Severe RLE PAD - Recent right anterior tibial angioplasty on 12/06/17. Should be on antiplatelet therapy if able to tolerate. Will order ASA 81mg daily if ok'ed by Hospitalist. - Patent vessels with anterior tibial runoff, severe disease in foot. AT ENGINEERING AIDE successful. If this does not improve patient's pain and toe healing, only other option is amputation. - No further revascularization is possible. She exhibited understanding and states pain in her foot is not bad enough for this. - We recommend continue wound care at [facility] upon discharge. - We will sign off at this point and be available as needed. Vital Signs Date Time Temp Pulse Resp B/P (MAP) Pulse Ox O2 Delivery O2 Flow Rate FiO2 12/11/17 08:00 Room Air 12/11/17 07:00 97.8 55 18 101/36 (57) 95 97.8 12/11/17 06:56 2.0 Intake and Output 12/11/17 07:00 Intake Total 2230 ml Output Total 3400 ml Balance -1170 ml Intake Oral 2230 ml Stool Total 2400 ml Urine/Stool Mix 1000 ml Comment Review of Relevant I have reviewed the following items olivia (where applicable) has been applied. Labs Laboratory Tests Test 12/10/17 06:30 12/11/17 04:25 White Blood Count 11.1 x10^3/uL (4.0-11.0) 12.3 x10^3/uL (4.0-11.0) Red Blood Count 3.33 x10^6/uL (3.50-5.40) 3.39 x10^6/uL (3.50-5.40) Hemoglobin 8.7 g/dL (12.0-15.5) 9.1 g/dL (12.0-15.5) Hematocrit 27.3 % (36.0-47.0) 27.9 % (36.0-47.0) Mean Corpuscular Volume 82 fL (79-100) 82 fL (79-100) Mean Corpuscular Hemoglobin 26 pg (25-35) 27 pg (25-35) Mean Corpuscular Hemoglobin Concent 32 g/dL (31-37) 33 g/dL (31-37) Red Cell Distribution Width 20.1 % (11.5-14.5) 20.2 % (11.5-14.5) Platelet Count 231 x10^3/uL (140-400) 218 x10^3/uL (140-400) Neutrophils (%) (Auto) 63 % (31-73) 73 % (31-73) Lymphocytes (%) (Auto) 19 % (24-48) 13 % (24-48) Monocytes (%) (Auto) 7 % (0-9) 7 % (0-9) Eosinophils (%) (Auto) 10 % (0-3) 7 % (0-3) Basophils (%) (Auto) 1 % (0-3) 1 % (0-3) Neutrophils # (Auto) 6.9 x10^3uL (1.8-7.7) 8.9 x10^3uL (1.8-7.7) Lymphocytes # (Auto) 2.1 x10^3/uL (1.0-4.8) 1.6 x10^3/uL (1.0-4.8) Monocytes # (Auto) 0.8 x10^3/uL (0.0-1.1) 0.9 x10^3/uL (0.0-1.1) Eosinophils # (Auto) 1.2 x10^3/uL (0.0-0.7) 0.8 x10^3/uL (0.0-0.7) Basophils # (Auto) 0.1 x10^3/uL (0.0-0.2) 0.1 x10^3/uL (0.0-0.2) Sodium Level 140 mmol/L (136-145) 141 mmol/L (136-145) Potassium Level 4.1 mmol/L (3.5-5.1) 3.8 mmol/L (3.5-5.1) Chloride Level 99 mmol/L (98-107) 100 mmol/L (98-107) Carbon Dioxide Level 24 mmol/L (21-32) 28 mmol/L (21-32) Anion Gap 17 (6-14) 13 (6-14) Blood Urea Nitrogen 34 mg/dL (7-20) 14 mg/dL (7-20) Creatinine 6.4 mg/dL (0.6-1.0) 3.2 mg/dL (0.6-1.0) Estimated GFR (Cockcroft-Gault) 7.7 17.1 Glucose Level 85 mg/dL (70-99) 88 mg/dL (70-99) Calcium Level 9.7 mg/dL (8.5-10.1) 9.9 mg/dL (8.5-10.1) Creatine Kinase 17 U/L (26-192) Laboratory Tests Test 12/11/17 04:25 White Blood Count 12.3 x10^3/uL (4.0-11.0) Red Blood Count 3.39 x10^6/uL (3.50-5.40) Hemoglobin 9.1 g/dL (12.0-15.5) Hematocrit 27.9 % (36.0-47.0) Mean Corpuscular Volume 82 fL (79-100) Mean Corpuscular Hemoglobin 27 pg (25-35) Mean Corpuscular Hemoglobin Concent 33 g/dL (31-37) Red Cell Distribution Width 20.2 % (11.5-14.5) Platelet Count 218 x10^3/uL (140-400) Neutrophils (%) (Auto) 73 % (31-73) Lymphocytes (%) (Auto) 13 % (24-48) Monocytes (%) (Auto) 7 % (0-9) Eosinophils (%) (Auto) 7 % (0-3) Basophils (%) (Auto) 1 % (0-3) Neutrophils # (Auto) 8.9 x10^3uL (1.8-7.7) Lymphocytes # (Auto) 1.6 x10^3/uL (1.0-4.8) Monocytes # (Auto) 0.9 x10^3/uL (0.0-1.1) Eosinophils # (Auto) 0.8 x10^3/uL (0.0-0.7) Basophils # (Auto) 0.1 x10^3/uL (0.0-0.2) Sodium Level 141 mmol/L (136-145) Potassium Level 3.8 mmol/L (3.5-5.1) Chloride Level 100 mmol/L (98-107) Carbon Dioxide Level 28 mmol/L (21-32) Anion Gap 13 (6-14) Blood Urea Nitrogen 14 mg/dL (7-20) Creatinine 3.2 mg/dL (0.6-1.0) Estimated GFR (Cockcroft-Gault) 17.1 Glucose Level 88 mg/dL (70-99) Calcium Level 9.9 mg/dL (8.5-10.1) Microbiology 12/02/17 Blood Culture - Final, Complete NO GROWTH AFTER 5 DAYS Medications Current Medications Sodium Chloride 500 ml @ 250 mls/hr 1X ONCE IV Last administered on at 23:00; Start 12/02/17 at 23:15; Stop 12/03/17 at 01:14; Status DC Norepinephrine Bitartrate 250 ml @ 0 mls/hr 1X ONCE IV Last administered on at 23:27; Start 12/02/17 at 23:30; Stop 12/02/17 at 23:31; Status DC Ondansetron HCl (Zofran) 4 mg PRN Q8HRS PRN IV NAUSEA/VOMITING; Start at 23:30; Stop 12/03/17 at 23:29; Status DC Morphine Sulfate (Morphine Sulfate) 4 mg PRN Q2HR PRN IV PAIN Last administered on 12/03/17at 01:16; Start 12/02/17 at 23:30; Stop 12/03/17 at 23 :29; Status DC Acetaminophen (Tylenol) 650 mg PRN Q4HRS PRN PO FEVER; Start 12/02/17 at 23:30 ; Stop 12/03/17 at 23:29; Status DC Ceftaroline Fosamil 200 mg/ Sodium Chloride 250 ml @ 250 mls/hr Q12HR IV Last administered on 12/11/17at 08:48; Start 12/03/17 at 00:30 Norepinephrine Bitartrate 250 ml @ 1.875 mls/ hr CONT PRN IV SEE I/O RECORD; Start 12/03/17 at 01:15; Stop 12/04/17 at 15:30; Status DC Pharmacy Consult (C.diff Med Screen By Rx) 1 each 1X ONCE MC ; Start 12/03/17 at 09:00; Stop 12/03/17 at 09:01; Status DC Lactobacillus Rhamnosus (Culturelle) 1 cap BID PO Last administered on at 13:09; Start 12/03/17 at 21:00; Stop 12/04/17 at 14:23; Status DC Acetaminophen (Tylenol Supp) 650 mg PRN Q6HRS PRN NE MILD PAIN / TEMP; Start 12/03/17 at 10:45 Cinacalcet (Sensipar) 30 mg HS PO Last administered on 12/10/17at 20:55; Start 12/03/17 at 21:00 Diphenoxylate HCl/ Atropine (Lomotil) 1 tab PRN Q8HRS PRN PO DIARRHEA Last administered on 12/08/17at 12:43; Start 12/03/17 at 10:45 Vitamin B Complex/ Vitamin C (Kassie-Luann) 1 tab DAILY PO Last administered on at 10:08; Start 12/03/17 at 11:30 Acetaminophen/ Hydrocodone Bitart (Lortab 7.5/325) 1 tab PRN Q8HRS PRN PO MODERATE-SEVERE PAIN Last administered on 12/10/17at 06:12; Start 12/03/17 at 10:45 Artificial Tears (Artificial Tears) 1 drop PRN Q15MIN PRN OU DRY EYE; Start at 10:45 Triamcinolone Acetonide (Kenalog) 1 hanh PRN Q8HRS PRN TP RASH; Start 12/03/17 at 10:45 Midodrine (Proamatine) 10 mg [id number] PO Last administered on 12/11/17 06:27; Start 12/03/17 at 13:00 Multivitamins (Thera M Plus) 1 tab DAILY PO Last administered on 12/11/17at 08: 52; Start 12/04/17 at 09:00 Sulfasalazine (Azulfidine) 500 mg BID PO Last administered on 12/10/17at 20:55 ; Start 12/03/17 at 11:30 Potassium Chloride/Water 50 ml @ 50 mls/hr 1X ONCE IV Last administered on at 13:09; Start 12/03/17 at 12:00; Stop 12/03/17 at 12:59; Status DC Darbepoetin Justin (Aranesp) 60 mcg WEEKLYHS SQ Last administered on 12/10/17at 22:28; Start 12/03/17 at 21:00 Heparin Sodium (Porcine) (Heparin Sodium) 5,000 unit Q8HRS SQ Last administered on 12/04/17at 06:01; Start 12/03/17 at 14:00; Stop 12/04/17 at 13 :44; Status DC Daptomycin 250 mg/ Sodium Chloride 50 ml @ 100 mls/hr Q48H IV Last administered on 12/10/17at 10:03; Start 12/04/17 at 09:00 Iodixanol (Visipaque 320) 100 ml STK-MED ONCE .ROUTE ; Start 12/04/17 at 08:38 ; Stop 12/04/17 at 08:39; Status DC Lidocaine/Sodium Bicarbonate (Buffered Lidocaine 1%) 3 ml STK-MED ONCE .ROUTE ; Start 12/04/17 at 08:38; Stop 12/04/17 at 08:39; Status DC Heparin Sodium/ Sodium Chloride 0 ml @ As Directed STK-MED ONCE .ROUTE ; Start 12/04/17 at 08:39; Stop 12/04/17 at 08:40; Status DC Sodium Chloride 1,000 ml @ 1,000 mls/hr Q1H PRN IV hypotension; Start at 08:51; Stop 12/05/17 at 14:50; Status DC Sodium Chloride 1,000 ml @ 400 mls/hr Q2H30M PRN IV PATENCY; Start 12/05/17 at 08:51; Stop 12/05/17 at 20:50; Status DC Info (PHARMACY MONITORING -- do not chart) 1 each PRN DAILY PRN MC SEE COMMENTS ; Start 12/05/17 at 09:00; Status UNV Info (PHARMACY MONITORING -- do not chart) 1 each PRN DAILY PRN MC SEE COMMENTS ; Start 12/05/17 at 09:00; Stop 12/07/17 at 13:44; Status DC Acetaminophen (Tylenol) 650 mg 1X PRN PRN PO PRE-TRANSFUSION; Start 12/05/17 at 10:30; Stop 12/05/17 at 21:00; Status DC Diphenhydramine HCl (Benadryl) 25 mg PRN 1X PRN PO PRE-TRANSFUSION; Start at 10:30; Stop 12/05/17 at 21:00; Status DC Phytonadione (Vitamin K Ampule) 5 mg 1X ONCE SQ Last administered on at 15:11; Start 12/05/17 at 13:00; Stop 12/05/17 at 13:01; Status DC Fentanyl Citrate (Fentanyl 2ml Vial) 25 mcg PRN Q4HRS PRN IV PAIN MILD Last administered on 12/09/17at 11:05; Start 12/05/17 at 22:10 Alprazolam (Xanax) 0.5 mg PRN Q8HRS PRN PO ANXIETY / AGITATION Last administered on 12/09/17at 10:28; Start 12/06/17 at 02:45 Fentanyl Citrate (Fentanyl 2ml Vial) 50 mcg PRN Q2HR PRN IV PAIN MODERATE TO SEVERE Last administered on 12/11/17at 06:26; Start 12/06/17 at 02:45 Iodixanol (Visipaque 320) 100 ml STK-MED ONCE .ROUTE ; Start 12/06/17 at 10:49 ; Stop 12/06/17 at 10:50; Status DC Lidocaine/Sodium Bicarbonate (Buffered Lidocaine 1%) 3 ml STK-MED ONCE .ROUTE ; Start 12/06/17 at 10:49; Stop 12/06/17 at 10:50; Status DC Heparin Sodium/ Sodium Chloride 1,000 ml @ As Directed STK-MED ONCE .ROUTE ; Start 12/06/17 at 10:49; Stop 12/06/17 at 10:50; Status DC Heparin Sodium/ Sodium Chloride 500 ml @ As Directed STK-MED ONCE .ROUTE ; Start 12/06/17 at 11:02; Stop 12/06/17 at 11:03; Status DC Fentanyl Citrate (Fentanyl 2ml Vial) 100 mcg STK-MED ONCE .ROUTE ; Start at 11:16; Stop 12/06/17 at 11:17; Status DC Heparin Sodium (Porcine) (Heparin Sodium) 10,000 unit STK-MED ONCE .ROUTE ; Start 12/06/17 at 11:16; Stop 12/06/17 at 11:17; Status DC Nitroglycerin (Nitroglycerin) 200 mcg 1X ONCE IART Last administered on at 12:29; Start 12/06/17 at 12:15; Stop 12/06/17 at 12:16; Status DC Heparin Sodium/ Sodium Chloride (HEPARIN for ARTERIAL LINE FLUSH) 1,000 unit 1X ONCE IART Last administered on 12/06/17at 12:29; Start 12/06/17 at 12:15; Stop 12/06/17 at 12:16; Status DC Lidocaine/Sodium Bicarbonate (Buffered Lidocaine 1%) 3 ml 1X ONCE IJ Last administered on 12/06/17at 12:29; Start 12/06/17 at 12:15; Stop 12/06/17 at 12 :16; Status DC Fentanyl Citrate (Fentanyl 2ml Vial) 100 mcg 1X ONCE IV Last administered on 12/06/17at 12:31; Start 12/06/17 at 12:15; Stop 12/06/17 at 12:16; Status DC Heparin Sodium (Porcine) (Heparin Sodium) 4,000 unit 1X ONCE IV Last administered on 12/06/17at 12:33; Start 12/06/17 at 12:15; Stop 12/06/17 at 12 :16; Status DC Heparin Sodium (Porcine) (Hep Lock Adult) 500 unit STK-MED ONCE IV ; Start at 12:34; Stop 12/06/17 at 12:35; Status DC Iodixanol (Visipaque 320) 97 ml 1X ONCE IART Last administered on 12/06/17at 12:38; Start 12/06/17 at 12:45; Stop 12/06/17 at 12:46; Status DC Heparin Sodium (Porcine) (Hep Lock Adult) 500 unit 1X ONCE IV Last administered on 12/06/17at 12:38; Start 12/06/17 at 12:45; Stop 12/06/17 at 12 :46; Status DC Info (CONTRAST GIVEN -- Rx MONITORING) 1 each PRN DAILY PRN MC SEE COMMENTS; Start 12/06/17 at 13:00; Stop 12/08/17 at 12:59; Status DC Sodium Chloride 1,000 ml @ 1,000 mls/hr Q1H PRN IV hypotension; Start at 13:37; Stop 12/07/17 at 19:36; Status DC Sodium Chloride 1,000 ml @ 400 mls/hr Q2H30M PRN IV PATENCY; Start 12/07/17 at 13:37; Stop 12/08/17 at 01:36; Status DC Info (PHARMACY MONITORING -- do not chart) 1 each PRN DAILY PRN MC SEE COMMENTS ; Start 12/07/17 at 13:45; Status Cancel Potassium Chloride (Klor-Con) 40 meq 1X ONCE PO Last administered on at 14:56; Start 12/08/17 at 13:00; Stop 12/08/17 at 13:02; Status DC Sodium Chloride 1,000 ml @ 1,000 mls/hr Q1H PRN IV hypotension; Start at 12:23; Stop 12/10/17 at 18:22; Status DC Albumin Human 200 ml @ 200 mls/hr 1X PRN PRN IV Hypotension; Start 12/10/17 at 12:30; Stop 12/10/17 at 18:29; Status DC Acetaminophen (Tylenol) 500 mg 1X PRN PRN PO MILD PAIN / TEMP Last administered on 12/11/17at 08:52; Start 12/10/17 at 12:30; Stop 12/11/17 at 12 :29 Diphenhydramine HCl (Benadryl) 25 mg 1X PRN PRN IV ITCHING; Start 12/10/17 at 12:30; Stop 12/11/17 at 12:29 Diphenhydramine HCl (Benadryl) 25 mg 1X PRN PRN IV ITCHING; Start 12/10/17 at 12:30; Stop 12/11/17 at 12:29 Sodium Chloride 1,000 ml @ 400 mls/hr Q2H30M PRN IV PATENCY; Start 12/10/17 at 12:23; Stop 12/11/17 at 00:22; Status DC Info (PHARMACY MONITORING -- do not chart) 1 each PRN DAILY PRN MC SEE COMMENTS ; Start 12/10/17 at 12:30 Silver Sulfadiazine (Silvadene) 1 hanh DAILY TP Last administered on 12/11/17at 08:52; Start 12/10/17 at 13:30 Active Scripts Active Midodrine Hcl 5 Mg Tablet 10 Mg PO [id number] Artificial Tears (Polyvinyl Alcohol) 15 Ml Drops 1 Drop OU PRN Q15MIN PRN 30 Days Acetaminophen Supp (Acetaminophen) 650 Mg Supp.rect 650 Mg NE PRN Q6HRS PRN 30 Days Hydrocodone-Apap 7.5-325 (Hydrocodone Bit/Acetaminophen) 1 Each Tablet 1 Tab PO PRN Q8HRS PRN 7 Days Reported Multivitamins (Multivitamin) 1 Each Tablet 1 Tab PO DAILY Sensipar (Cinacalcet Hcl) 30 Mg Tablet 1 Tab PO HS Azulfidine (Sulfasalazine) 500 Mg Tablet 500 Mg PO BID Lomotil Tablet (Diphenoxylate Hcl/Atropine) 1 Each Tablet 1 Tab PO PRN Q8HRS Nephro-Luann Tablet (Folic Acid/Vitamin B Comp W-C) 0.8 Mg Tablet 1 Tab PO DAILY Triamcinolone Acetonide 0.1% Cream (Triamcinolone Acetonide) 15 Gm Cream..g. 1 Hanh TP PRN Q8HRS apply to bilat legs topically as needed for skin care Vitals/I & O Vital Sign - Last 24 Hours 12/10/17 12/10/17 12/10/17 12/10/17 13:02 13:07 18:03 18:04 Pulse 53 58 Resp 16 B/P (MAP) 118/86 118/86 O2 Delivery Room Air Room Air 12/10/17 12/10/17 12/10/17 12/10/17 19:25 20:00 20:56 23:25 Temp 96.8 98.5 96.8 98.5 Pulse 72 65 Resp 17 18 18 B/P (MAP) 151/59 (89) 112/50 (70) Pulse Ox 94 95 O2 Delivery Room Air Room Air Room Air Room Air 12/11/17 12/11/17 12/11/17 12/11/17 02:30 03:28 03:35 06:26 Temp 97.8 97.8 Pulse 63 Resp 18 17 16 18 B/P (MAP) 147/39 (75) Pulse Ox 96 O2 Delivery Room Air Room Air Room Air 12/11/17 12/11/17 12/11/17 12/11/17 06:27 06:56 07:00 08:00 Temp 97.8 97.8 Pulse 63 55 Resp 18 B/P (MAP) 147/39 101/36 (57) Pulse Ox 96 95 O2 Delivery Room Air Room Air Room Air O2 Flow Rate 2.0 Intake and Output 12/10/17 12/10/17 12/11/17 15:00 23:00 07:00 Intake Total 2230 ml Output Total 2400 ml 1000 ml Balance -170 ml -1000 ml Nutrition Consultation Dietary Evaluation: Recommendations by RD: Increase Calorie Intake, Protein supplementation Comments: continue Ensure pudding (buttercotch) w/lunch and dinner continue Magic cup (orange) w/lunch and dinner Continue w/MVI and kassie-luann Expected Outcomes/Goals: PO intake to meet >75% est needs- met, goal ongoing Malnutrition Findings: Body Fat Depletion (Non Severe: Mild Depletion Weight Status: Underweight ROGER LEES CERAMIC DESIGNER Dec 11, 2017 11:17
--- NOTE | 2017-12-11 11:42 | PDOC ---
Infectious Disease Note Subjective: Subjective Finishing lunch, Feeling alright ROS: ROS Negative except for above. Vital Signs: Vital Signs Vital Signs Date Time Temp Pulse Resp B/P (MAP) Pulse Ox O2 Delivery O2 Flow Rate FiO2 12/11/17 08:00 Room Air 12/11/17 07:00 97.8 55 18 101/36 (57) 95 97.8 12/11/17 06:56 2.0 Physical Exam: PHYSICAL EXAM GENERAL: Sitting in the chair, smiling HEENT: Oral cavity dry. LUNGS: Clear HEART: S1, S2. ABDOMEN: Soft. BS +. Ostomy, nontender EXTREMITIES: Left BKA, stump. Right lateral leg wound, small 1cm, . looks clean ,,, weak pulse SHOPPING INSPECTOR: Alert, responds appropriately and follow commands SKIN: No generalized rash. right big toe tender but not red, swollen or any wound Tunneled HDC (11/16) w/o signs of complications. Left chest PICC (11/26) clean Medications: Inpatient Meds: Current Medications Medications (Trade) Dose Ordered Sig/Yovanny Start Time Stop Time Status Last Admin Dose Admin Acetaminophen (Tylenol Supp) 650 mg PRN Q6HRS PRN 12/03/17 10:45 Acetaminophen (Tylenol) 500 mg 1X PRN PRN 12/10/17 12:30 12/11/17 12:29 12/11/17 08:52 500 MG Acetaminophen/ Hydrocodone Bitart (Lortab 7.5/325) 1 tab PRN Q8HRS PRN 12/03/17 10:45 12/11/17 11:12 1 TAB Albumin Human 200 ml @ 200 mls/hr 1X PRN PRN 12/10/17 12:30 12/10/17 18:29 DC Alprazolam (Xanax) 0.5 mg PRN Q8HRS PRN 12/06/17 02:45 12/09/17 10:28 0.5 MG Artificial Tears (Artificial Tears) 1 drop PRN Q15MIN PRN 12/03/17 10:45 Aspirin (Ecotrin) 81 mg [id number] 12/11/17 12:00 Ceftaroline Fosamil 200 mg/ Sodium Chloride 250 ml @ 250 mls/hr Q12HR 12/03/17 00:30 12/11/17 08:48 250 MLS/HR Cinacalcet (Sensipar) 30 mg HS 12/03/17 21:00 12/10/17 20:55 30 MG Daptomycin 250 mg/ Sodium Chloride 50 ml @ 100 mls/hr Q48H 12/04/17 09:00 12/10/17 10:03 100 MLS/HR Darbepoetin Justin (Aranesp) 60 mcg WEEKLYHS 12/03/17 21:00 12/10/17 22:28 60 MCG Diphenhydramine HCl (Benadryl) 25 mg 1X PRN PRN 12/10/17 12:30 12/11/17 12:29 Diphenoxylate HCl/ Atropine (Lomotil) 1 tab PRN Q8HRS PRN 12/03/17 10:45 12/08/17 12:43 1 TAB Fentanyl Citrate (Fentanyl 2ml Vial) 100 mcg 1X ONCE 12/06/17 12:15 12/06/17 12:16 DC 12/06/17 12:31 100 MCG Heparin Sodium (Porcine) (Hep Lock Adult) 500 unit 1X ONCE 12/06/17 12:45 12/06/17 12:46 DC 12/06/17 12:38 100 UNIT Heparin Sodium (Porcine) (Heparin Sodium) 4,000 unit 1X ONCE 12/06/17 12:15 12/06/17 12:16 DC 12/06/17 12:33 5,000 UNIT Heparin Sodium/ Sodium Chloride (HEPARIN for ARTERIAL LINE FLUSH) 1,000 unit 1X ONCE 12/06/17 12:15 12/06/17 12:16 DC 12/06/17 12:29 1,000 UNIT Info (CONTRAST GIVEN -- Rx MONITORING) 1 each PRN DAILY PRN 12/06/17 13:00 12/08/17 12:59 DC Info (PHARMACY MONITORING -- do not chart) 1 each PRN DAILY PRN 12/10/17 12:30 Iodixanol (Visipaque 320) 97 ml 1X ONCE 12/06/17 12:45 12/06/17 12:46 DC 12/06/17 12:38 97 ML Lactobacillus Rhamnosus (Culturelle) 1 cap BID 12/03/17 21:00 12/04/17 14:23 DC 12/04/17 13:09 1 CAP Lidocaine/Sodium Bicarbonate (Buffered Lidocaine 1%) 3 ml 1X ONCE 12/06/17 12:15 12/06/17 12:16 DC 12/06/17 12:29 6 ML Midodrine (Proamatine) 10 mg [id number] 12/03/17 13:00 12/11/17 06:27 10 MG Morphine Sulfate (Morphine Sulfate) 4 mg PRN Q2HR PRN 12/02/17 23:30 12/03/17 23:29 DC 12/03/17 01:16 4 MG Multivitamins (Thera M Plus) 1 tab DAILY 12/04/17 09:00 12/11/17 08:52 1 TAB Nitroglycerin (Nitroglycerin) 200 mcg 1X ONCE 12/06/17 12:15 12/06/17 12:16 DC 12/06/17 12:29 100 MCG Norepinephrine Bitartrate 250 ml @ 1.875 mls/ hr CONT PRN 12/03/17 01:15 12/04/17 15:30 DC Ondansetron HCl (Zofran) 4 mg PRN Q8HRS PRN 12/02/17 23:30 12/03/17 23:29 DC Pharmacy Consult (C.diff Med Screen By Rx) 1 each 1X ONCE 12/03/17 09:00 12/03/17 09:01 DC Phytonadione (Vitamin K Ampule) 5 mg 1X ONCE 12/05/17 13:00 12/05/17 13:01 DC 12/05/17 15:11 5 MG Potassium Chloride/Water 50 ml @ 50 mls/hr 1X ONCE 12/03/17 12:00 12/03/17 12:59 DC 12/03/17 13:09 50 MLS/HR Potassium Chloride (Klor-Con) 40 meq 1X ONCE 12/08/17 13:00 12/08/17 13:02 DC 12/08/17 14:56 40 MEQ Silver Sulfadiazine (Silvadene) 1 tj DAILY 12/10/17 13:30 12/11/17 08:52 1 TJ Sodium Chloride 1,000 ml @ 400 mls/hr Q2H30M PRN 12/10/17 12:23 12/11/17 00:22 DC Sulfasalazine (Azulfidine) 500 mg BID 12/03/17 11:30 12/11/17 11:11 500 MG Triamcinolone Acetonide (Kenalog) 1 tj PRN Q8HRS PRN 12/03/17 10:45 Vitamin B Complex/ Vitamin C (Yaneth-Nabeel) 1 tab DAILY 12/03/17 11:30 12/11/17 11:11 1 TAB Labs: Lab Laboratory Tests Test 12/11/17 04:25 White Blood Count 12.3 x10^3/uL (4.0-11.0) Red Blood Count 3.39 x10^6/uL (3.50-5.40) Hemoglobin 9.1 g/dL (12.0-15.5) Hematocrit 27.9 % (36.0-47.0) Mean Corpuscular Volume 82 fL (79-100) Mean Corpuscular Hemoglobin 27 pg (25-35) Mean Corpuscular Hemoglobin Concent 33 g/dL (31-37) Red Cell Distribution Width 20.2 % (11.5-14.5) Platelet Count 218 x10^3/uL (140-400) Neutrophils (%) (Auto) 73 % (31-73) Lymphocytes (%) (Auto) 13 % (24-48) Monocytes (%) (Auto) 7 % (0-9) Eosinophils (%) (Auto) 7 % (0-3) Basophils (%) (Auto) 1 % (0-3) Neutrophils # (Auto) 8.9 x10^3uL (1.8-7.7) Lymphocytes # (Auto) 1.6 x10^3/uL (1.0-4.8) Monocytes # (Auto) 0.9 x10^3/uL (0.0-1.1) Eosinophils # (Auto) 0.8 x10^3/uL (0.0-0.7) Basophils # (Auto) 0.1 x10^3/uL (0.0-0.2) Sodium Level 141 mmol/L (136-145) Potassium Level 3.8 mmol/L (3.5-5.1) Chloride Level 100 mmol/L (98-107) Carbon Dioxide Level 28 mmol/L (21-32) Anion Gap 13 (6-14) Blood Urea Nitrogen 14 mg/dL (7-20) Creatinine 3.2 mg/dL (0.6-1.0) Estimated GFR (Cockcroft-Gault) 17.1 Glucose Level 88 mg/dL (70-99) Calcium Level 9.9 mg/dL (8.5-10.1) Micro Microbiology 12/02/17 Blood Culture - Preliminary, Resulted NO GROWTH AFTER 4 DAYS Objective: Assessment: Chronically low BP h/o sepsis with reported MRSA from 11/21 POA ([facility]) while on Vanc for MRSA bacteremia from previous admission -Repeat BC from 11/22 & NGTD. PHILIP 11/27 neg H/O High grade MRSA bacteremia previous admission from 10/31. source infected HD cath,s/p removal. Discharged on vanc -Repeat BC on 11/02, 11/04 & 11/08 positive. BC 11/13 negative -ECHO without evidence of veg H/O infected right HDC cath s/p removal on 11/01 + MRSA. -s/p interval placement of a temp [facility]/HDC on 11/01; removed. -s/p Tunneled HDC placement on 11/16. h/o resp failure w/ pleural effusion s/p thoracentesis 11/07 with 1/1 liter removed pH 7.51. 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 C. diff neg 12/03 Plan: Plan of Care Cont ceftaroline and daptomycin as planned last neg BC 11/23 Can discharge back to SNF on daptomycin alone, Monitor for toxicities. Recent CK 17 cont supportive care weekly CBC, Cr & CPK faxed to our office [phone] f/u appt 1-2 weeks from discharge MANAN HARDEN MD Dec 11, 2017 11:42
[2017-12-11] MEDS: ASPIRIN ENTERIC COATED 81 MG TABLET.DR. PO SCH (12:00)
--- NOTE | 2017-12-11 13:16 | PDOC ---
PROGRESS NOTES Chief Complaint Chief Complaint Recent sepsis before this admission with MRSA bacteremia Diarrhea Hypokalemia chronic Hypotension on midodrine H/o MRSA bacteremia ESRD on HD H/o HTN H/o CAD left leg BKA rt big toe pain with extensive distal vascular dz. rt leg small ulcer. s/p big toe nail removal 12/10 plan;fu with vascular, did angiogram and angioplasty with little improvement .asa daily fu with ID, on 2 iv abx ,dc with dapto to SNF fu with sw , need to find a snf for iv abx cont HD on midodrine dc when SW find a place History of Present Illness History of Present Illness Pt seen and examined while laying in bed Discussed w/RN Discussed w/pt rt big toe nail removed by pod yesterday, pain better Vitals Vitals Vital Signs Date Time Temp Pulse Resp B/P (MAP) Pulse Ox O2 Delivery O2 Flow Rate FiO2 12/11/17 11:00 98.0 62 18 95/41 (59) 96 Room Air 98.0 12/11/17 06:56 2.0 Physical Exam Physical Exam GENERAL: Sitting in the chair, smiling HEENT: Oral cavity dry. LUNGS: Clear HEART: S1, S2. ABDOMEN: Soft. BS +. Ostomy, nontender EXTREMITIES: Left BKA, stump. Right lateral leg wound, small 1cm, . looks clean ,,, weak pulse [employer] MEMBER: Alert, responds appropriately and follow commands SKIN: No generalized rash. right big toe tender but not red, swollen or any wound Tunneled HDC (11/16) w/o signs of complications. Left chest PICC (11/26) clean General: Alert, Oriented X3, Cooperative, No acute distress Heart: Regular rate, Normal S1, Normal S2, No murmurs, Other (faint heart sounds) Lungs: Clear Abdomen: Normal bowel sounds, Soft, No tenderness, Other (Left lower abd ostomy ) Extremities: No cyanosis, No edema, Other (Left BKA, healing right sacral ulcer , mild desquamation of right toes ) Skin: No breakdown, No significant lesion Labs LABS Laboratory Tests Test 12/11/17 04:25 White Blood Count 12.3 x10^3/uL (4.0-11.0) Red Blood Count 3.39 x10^6/uL (3.50-5.40) Hemoglobin 9.1 g/dL (12.0-15.5) Hematocrit 27.9 % (36.0-47.0) Mean Corpuscular Volume 82 fL (79-100) Mean Corpuscular Hemoglobin 27 pg (25-35) Mean Corpuscular Hemoglobin Concent 33 g/dL (31-37) Red Cell Distribution Width 20.2 % (11.5-14.5) Platelet Count 218 x10^3/uL (140-400) Neutrophils (%) (Auto) 73 % (31-73) Lymphocytes (%) (Auto) 13 % (24-48) Monocytes (%) (Auto) 7 % (0-9) Eosinophils (%) (Auto) 7 % (0-3) Basophils (%) (Auto) 1 % (0-3) Neutrophils # (Auto) 8.9 x10^3uL (1.8-7.7) Lymphocytes # (Auto) 1.6 x10^3/uL (1.0-4.8) Monocytes # (Auto) 0.9 x10^3/uL (0.0-1.1) Eosinophils # (Auto) 0.8 x10^3/uL (0.0-0.7) Basophils # (Auto) 0.1 x10^3/uL (0.0-0.2) Sodium Level 141 mmol/L (136-145) Potassium Level 3.8 mmol/L (3.5-5.1) Chloride Level 100 mmol/L (98-107) Carbon Dioxide Level 28 mmol/L (21-32) Anion Gap 13 (6-14) Blood Urea Nitrogen 14 mg/dL (7-20) Creatinine 3.2 mg/dL (0.6-1.0) Estimated GFR (Cockcroft-Gault) 17.1 Glucose Level 88 mg/dL (70-99) Calcium Level 9.9 mg/dL (8.5-10.1) Comment Review of Relevant I have reviewed the following items olivia (where applicable) has been applied. Labs Laboratory Tests Test 12/10/17 06:30 12/11/17 04:25 White Blood Count 11.1 x10^3/uL (4.0-11.0) 12.3 x10^3/uL (4.0-11.0) Red Blood Count 3.33 x10^6/uL (3.50-5.40) 3.39 x10^6/uL (3.50-5.40) Hemoglobin 8.7 g/dL (12.0-15.5) 9.1 g/dL (12.0-15.5) Hematocrit 27.3 % (36.0-47.0) 27.9 % (36.0-47.0) Mean Corpuscular Volume 82 fL (79-100) 82 fL (79-100) Mean Corpuscular Hemoglobin 26 pg (25-35) 27 pg (25-35) Mean Corpuscular Hemoglobin Concent 32 g/dL (31-37) 33 g/dL (31-37) Red Cell Distribution Width 20.1 % (11.5-14.5) 20.2 % (11.5-14.5) Platelet Count 231 x10^3/uL (140-400) 218 x10^3/uL (140-400) Neutrophils (%) (Auto) 63 % (31-73) 73 % (31-73) Lymphocytes (%) (Auto) 19 % (24-48) 13 % (24-48) Monocytes (%) (Auto) 7 % (0-9) 7 % (0-9) Eosinophils (%) (Auto) 10 % (0-3) 7 % (0-3) Basophils (%) (Auto) 1 % (0-3) 1 % (0-3) Neutrophils # (Auto) 6.9 x10^3uL (1.8-7.7) 8.9 x10^3uL (1.8-7.7) Lymphocytes # (Auto) 2.1 x10^3/uL (1.0-4.8) 1.6 x10^3/uL (1.0-4.8) Monocytes # (Auto) 0.8 x10^3/uL (0.0-1.1) 0.9 x10^3/uL (0.0-1.1) Eosinophils # (Auto) 1.2 x10^3/uL (0.0-0.7) 0.8 x10^3/uL (0.0-0.7) Basophils # (Auto) 0.1 x10^3/uL (0.0-0.2) 0.1 x10^3/uL (0.0-0.2) Sodium Level 140 mmol/L (136-145) 141 mmol/L (136-145) Potassium Level 4.1 mmol/L (3.5-5.1) 3.8 mmol/L (3.5-5.1) Chloride Level 99 mmol/L (98-107) 100 mmol/L (98-107) Carbon Dioxide Level 24 mmol/L (21-32) 28 mmol/L (21-32) Anion Gap 17 (6-14) 13 (6-14) Blood Urea Nitrogen 34 mg/dL (7-20) 14 mg/dL (7-20) Creatinine 6.4 mg/dL (0.6-1.0) 3.2 mg/dL (0.6-1.0) Estimated GFR (Cockcroft-Gault) 7.7 17.1 Glucose Level 85 mg/dL (70-99) 88 mg/dL (70-99) Calcium Level 9.7 mg/dL (8.5-10.1) 9.9 mg/dL (8.5-10.1) Creatine Kinase 17 U/L (26-192) Laboratory Tests Test 12/11/17 04:25 White Blood Count 12.3 x10^3/uL (4.0-11.0) Red Blood Count 3.39 x10^6/uL (3.50-5.40) Hemoglobin 9.1 g/dL (12.0-15.5) Hematocrit 27.9 % (36.0-47.0) Mean Corpuscular Volume 82 fL (79-100) Mean Corpuscular Hemoglobin 27 pg (25-35) Mean Corpuscular Hemoglobin Concent 33 g/dL (31-37) Red Cell Distribution Width 20.2 % (11.5-14.5) Platelet Count 218 x10^3/uL (140-400) Neutrophils (%) (Auto) 73 % (31-73) Lymphocytes (%) (Auto) 13 % (24-48) Monocytes (%) (Auto) 7 % (0-9) Eosinophils (%) (Auto) 7 % (0-3) Basophils (%) (Auto) 1 % (0-3) Neutrophils # (Auto) 8.9 x10^3uL (1.8-7.7) Lymphocytes # (Auto) 1.6 x10^3/uL (1.0-4.8) Monocytes # (Auto) 0.9 x10^3/uL (0.0-1.1) Eosinophils # (Auto) 0.8 x10^3/uL (0.0-0.7) Basophils # (Auto) 0.1 x10^3/uL (0.0-0.2) Sodium Level 141 mmol/L (136-145) Potassium Level 3.8 mmol/L (3.5-5.1) Chloride Level 100 mmol/L (98-107) Carbon Dioxide Level 28 mmol/L (21-32) Anion Gap 13 (6-14) Blood Urea Nitrogen 14 mg/dL (7-20) Creatinine 3.2 mg/dL (0.6-1.0) Estimated GFR (Cockcroft-Gault) 17.1 Glucose Level 88 mg/dL (70-99) Calcium Level 9.9 mg/dL (8.5-10.1) Microbiology 12/02/17 Blood Culture - Final, Complete NO GROWTH AFTER 5 DAYS Medications Current Medications Sodium Chloride 500 ml @ 250 mls/hr 1X ONCE IV Last administered on at 23:00; Start 12/02/17 at 23:15; Stop 12/03/17 at 01:14; Status DC Norepinephrine Bitartrate 250 ml @ 0 mls/hr 1X ONCE IV Last administered on at 23:27; Start 12/02/17 at 23:30; Stop 12/02/17 at 23:31; Status DC Ondansetron HCl (Zofran) 4 mg PRN Q8HRS PRN IV NAUSEA/VOMITING; Start at 23:30; Stop 12/03/17 at 23:29; Status DC Morphine Sulfate (Morphine Sulfate) 4 mg PRN Q2HR PRN IV PAIN Last administered on 12/03/17at 01:16; Start 12/02/17 at 23:30; Stop 12/03/17 at 23 :29; Status DC Acetaminophen (Tylenol) 650 mg PRN Q4HRS PRN PO FEVER; Start 12/02/17 at 23:30 ; Stop 12/03/17 at 23:29; Status DC Ceftaroline Fosamil 200 mg/ Sodium Chloride 250 ml @ 250 mls/hr Q12HR IV Last administered on 12/11/17at 08:48; Start 12/03/17 at 00:30 Norepinephrine Bitartrate 250 ml @ 1.875 mls/ hr CONT PRN IV SEE I/O RECORD; Start 12/03/17 at 01:15; Stop 12/04/17 at 15:30; Status DC Pharmacy Consult (C.diff Med Screen By Rx) 1 each 1X ONCE MC ; Start 12/03/17 at 09:00; Stop 12/03/17 at 09:01; Status DC Lactobacillus Rhamnosus (Culturelle) 1 cap BID PO Last administered on at 13:09; Start 12/03/17 at 21:00; Stop 12/04/17 at 14:23; Status DC Acetaminophen (Tylenol Supp) 650 mg PRN Q6HRS PRN MS MILD PAIN / TEMP; Start 12/03/17 at 10:45 Cinacalcet (Sensipar) 30 mg HS PO Last administered on 12/10/17at 20:55; Start 12/03/17 at 21:00 Diphenoxylate HCl/ Atropine (Lomotil) 1 tab PRN Q8HRS PRN PO DIARRHEA Last administered on 12/08/17at 12:43; Start 12/03/17 at 10:45 Vitamin B Complex/ Vitamin C (Kassie-Luann) 1 tab DAILY PO Last administered on at 11:11; Start 12/03/17 at 11:30 Acetaminophen/ Hydrocodone Bitart (Lortab 7.5/325) 1 tab PRN Q8HRS PRN PO MODERATE-SEVERE PAIN Last administered on 12/11/17at 11:12; Start 12/03/17 at 10:45 Artificial Tears (Artificial Tears) 1 drop PRN Q15MIN PRN OU DRY EYE; Start at 10:45 Triamcinolone Acetonide (Kenalog) 1 hanh PRN Q8HRS PRN TP RASH; Start 12/03/17 at 10:45 Midodrine (Proamatine) 10 mg [id number] PO Last administered on 12/11/17at 06:27; Start 12/03/17 at 13:00 Multivitamins (Thera M Plus) 1 tab DAILY PO Last administered on 12/11/17at 08: 52; Start 12/04/17 at 09:00 Sulfasalazine (Azulfidine) 500 mg BID PO Last administered on 12/11/17at 11:11 ; Start 12/03/17 at 11:30 Potassium Chloride/Water 50 ml @ 50 mls/hr 1X ONCE IV Last administered on at 13:09; Start 12/03/17 at 12:00; Stop 12/03/17 at 12:59; Status DC Darbepoetin Justin (Aranesp) 60 mcg WEEKLYHS SQ Last administered on 12/10/17at 22:28; Start 12/03/17 at 21:00 Heparin Sodium (Porcine) (Heparin Sodium) 5,000 unit Q8HRS SQ Last administered on 12/04/17at 06:01; Start 12/03/17 at 14:00; Stop 12/04/17 at 13 :44; Status DC Daptomycin 250 mg/ Sodium Chloride 50 ml @ 100 mls/hr Q48H IV Last administered on 12/10/17at 10:03; Start 12/04/17 at 09:00 Iodixanol (Visipaque 320) 100 ml STK-MED ONCE .ROUTE ; Start 12/04/17 at 08:38 ; Stop 12/04/17 at 08:39; Status DC Lidocaine/Sodium Bicarbonate (Buffered Lidocaine 1%) 3 ml STK-MED ONCE .ROUTE ; Start 12/04/17 at 08:38; Stop 12/04/17 at 08:39; Status DC Heparin Sodium/ Sodium Chloride 0 ml @ As Directed STK-MED ONCE .ROUTE ; Start 12/04/17 at 08:39; Stop 12/04/17 at 08:40; Status DC Sodium Chloride 1,000 ml @ 1,000 mls/hr Q1H PRN IV hypotension; Start at 08:51; Stop 12/05/17 at 14:50; Status DC Sodium Chloride 1,000 ml @ 400 mls/hr Q2H30M PRN IV PATENCY; Start 12/05/17 at 08:51; Stop 12/05/17 at 20:50; Status DC Info (PHARMACY MONITORING -- do not chart) 1 each PRN DAILY PRN MC SEE COMMENTS ; Start 12/05/17 at 09:00; Status UNV Info (PHARMACY MONITORING -- do not chart) 1 each PRN DAILY PRN MC SEE COMMENTS ; Start 12/05/17 at 09:00; Stop 12/07/17 at 13:44; Status DC Acetaminophen (Tylenol) 650 mg 1X PRN PRN PO PRE-TRANSFUSION; Start 12/05/17 at 10:30; Stop 12/05/17 at 21:00; Status DC Diphenhydramine HCl (Benadryl) 25 mg PRN 1X PRN PO PRE-TRANSFUSION; Start at 10:30; Stop 12/05/17 at 21:00; Status DC Phytonadione (Vitamin K Ampule) 5 mg 1X ONCE SQ Last administered on at 15:11; Start 12/05/17 at 13:00; Stop 12/05/17 at 13:01; Status DC Fentanyl Citrate (Fentanyl 2ml Vial) 25 mcg PRN Q4HRS PRN IV PAIN MILD Last administered on 12/09/17at 11:05; Start 12/05/17 at 22:10 Alprazolam (Xanax) 0.5 mg PRN Q8HRS PRN PO ANXIETY / AGITATION Last administered on 12/09/17at 10:28; Start 12/06/17 at 02:45 Fentanyl Citrate (Fentanyl 2ml Vial) 50 mcg PRN Q2HR PRN IV PAIN MODERATE TO SEVERE Last administered on 12/11/17at 06:26; Start 12/06/17 at 02:45 Iodixanol (Visipaque 320) 100 ml STK-MED ONCE .ROUTE ; Start 12/06/17 at 10:49 ; Stop 12/06/17 at 10:50; Status DC Lidocaine/Sodium Bicarbonate (Buffered Lidocaine 1%) 3 ml STK-MED ONCE .ROUTE ; Start 12/06/17 at 10:49; Stop 12/06/17 at 10:50; Status DC Heparin Sodium/ Sodium Chloride 1,000 ml @ As Directed STK-MED ONCE .ROUTE ; Start 12/06/17 at 10:49; Stop 12/06/17 at 10:50; Status DC Heparin Sodium/ Sodium Chloride 500 ml @ As Directed STK-MED ONCE .ROUTE ; Start 12/06/17 at 11:02; Stop 12/06/17 at 11:03; Status DC Fentanyl Citrate (Fentanyl 2ml Vial) 100 mcg STK-MED ONCE .ROUTE ; Start at 11:16; Stop 12/06/17 at 11:17; Status DC Heparin Sodium (Porcine) (Heparin Sodium) 10,000 unit STK-MED ONCE .ROUTE ; Start 12/06/17 at 11:16; Stop 12/06/17 at 11:17; Status DC Nitroglycerin (Nitroglycerin) 200 mcg 1X ONCE IART Last administered on at 12:29; Start 12/06/17 at 12:15; Stop 12/06/17 at 12:16; Status DC Heparin Sodium/ Sodium Chloride (HEPARIN for ARTERIAL LINE FLUSH) 1,000 unit 1X ONCE IART Last administered on 12/06/17at 12:29; Start 12/06/17 at 12:15; Stop 12/06/17 at 12:16; Status DC Lidocaine/Sodium Bicarbonate (Buffered Lidocaine 1%) 3 ml 1X ONCE IJ Last administered on 12/06/17at 12:29; Start 12/06/17 at 12:15; Stop 12/06/17 at 12 :16; Status DC Fentanyl Citrate (Fentanyl 2ml Vial) 100 mcg 1X ONCE IV Last administered on 12/06/17at 12:31; Start 12/06/17 at 12:15; Stop 12/06/17 at 12:16; Status DC Heparin Sodium (Porcine) (Heparin Sodium) 4,000 unit 1X ONCE IV Last administered on 12/06/17at 12:33; Start 12/06/17 at 12:15; Stop 12/06/17 at 12 :16; Status DC Heparin Sodium (Porcine) (Hep Lock Adult) 500 unit STK-MED ONCE IV ; Start at 12:34; Stop 12/06/17 at 12:35; Status DC Iodixanol (Visipaque 320) 97 ml 1X ONCE IART Last administered on 12/06/17at 12:38; Start 12/06/17 at 12:45; Stop 12/06/17 at 12:46; Status DC Heparin Sodium (Porcine) (Hep Lock Adult) 500 unit 1X ONCE IV Last administered on 12/06/17at 12:38; Start 12/06/17 at 12:45; Stop 12/06/17 at 12 :46; Status DC Info (CONTRAST GIVEN -- Rx MONITORING) 1 each PRN DAILY PRN MC SEE COMMENTS; Start 12/06/17 at 13:00; Stop 12/08/17 at 12:59; Status DC Sodium Chloride 1,000 ml @ 1,000 mls/hr Q1H PRN IV hypotension; Start at 13:37; Stop 12/07/17 at 19:36; Status DC Sodium Chloride 1,000 ml @ 400 mls/hr Q2H30M PRN IV PATENCY; Start 12/07/17 at 13:37; Stop 12/08/17 at 01:36; Status DC Info (PHARMACY MONITORING -- do not chart) 1 each PRN DAILY PRN MC SEE COMMENTS ; Start 12/07/17 at 13:45; Status Cancel Potassium Chloride (Klor-Con) 40 meq 1X ONCE PO Last administered on at 14:56; Start 12/08/17 at 13:00; Stop 12/08/17 at 13:02; Status DC Sodium Chloride 1,000 ml @ 1,000 mls/hr Q1H PRN IV hypotension; Start at 12:23; Stop 12/10/17 at 18:22; Status DC Albumin Human 200 ml @ 200 mls/hr 1X PRN PRN IV Hypotension; Start 12/10/17 at 12:30; Stop 12/10/17 at 18:29; Status DC Acetaminophen (Tylenol) 500 mg 1X PRN PRN PO MILD PAIN / TEMP Last administered on 12/11/17at 08:52; Start 12/10/17 at 12:30; Stop 12/11/17 at 12 :29; Status DC Diphenhydramine HCl (Benadryl) 25 mg 1X PRN PRN IV ITCHING; Start 12/10/17 at 12:30; Stop 12/11/17 at 12:29; Status DC Diphenhydramine HCl (Benadryl) 25 mg 1X PRN PRN IV ITCHING; Start 12/10/17 at 12:30; Stop 12/11/17 at 12:29; Status DC Sodium Chloride 1,000 ml @ 400 mls/hr Q2H30M PRN IV PATENCY; Start 12/10/17 at 12:23; Stop 12/11/17 at 00:22; Status DC Info (PHARMACY MONITORING -- do not chart) 1 each PRN DAILY PRN MC SEE COMMENTS ; Start 12/10/17 at 12:30 Silver Sulfadiazine (Silvadene) 1 hanh DAILY TP Last administered on 12/11/17at 08:52; Start 12/10/17 at 13:30 Aspirin (Ecotrin) 81 mg [id number] PO ; Start 12/11/17 at 12:00 Active Scripts Active Midodrine Hcl 5 Mg Tablet 10 Mg PO [id number] Artificial Tears (Polyvinyl Alcohol) 15 Ml Drops 1 Drop OU PRN Q15MIN PRN 30 Days Acetaminophen Supp (Acetaminophen) 650 Mg Supp.rect 650 Mg MS PRN Q6HRS PRN 30 Days Hydrocodone-Apap 7.5-325 (Hydrocodone Bit/Acetaminophen) 1 Each Tablet 1 Tab PO PRN Q8HRS PRN 7 Days Reported Multivitamins (Multivitamin) 1 Each Tablet 1 Tab PO DAILY Sensipar (Cinacalcet Hcl) 30 Mg Tablet 1 Tab PO HS Azulfidine (Sulfasalazine) 500 Mg Tablet 500 Mg PO BID Lomotil Tablet (Diphenoxylate Hcl/Atropine) 1 Each Tablet 1 Tab PO PRN Q8HRS Nephro-Luann Tablet (Folic Acid/Vitamin B Comp W-C) 0.8 Mg Tablet 1 Tab PO DAILY Triamcinolone Acetonide 0.1% Cream (Triamcinolone Acetonide) 15 Gm Cream..g. 1 Hanh TP PRN Q8HRS apply to bilat legs topically as needed for skin care Vitals/I & O Vital Sign - Last 24 Hours 12/10/17 12/10/17 12/10/17 12/10/17 18:03 18:04 19:25 20:00 Temp 96.8 96.8 Pulse 58 72 Resp 17 B/P (MAP) 118/86 151/59 (89) Pulse Ox 94 O2 Delivery Room Air Room Air Room Air 12/10/17 12/10/17 12/11/17 12/11/17 20:56 23:25 02:30 03:28 Temp 98.5 97.8 98.5 97.8 Pulse 65 63 Resp 18 18 18 17 B/P (MAP) 112/50 (70) 147/39 (75) Pulse Ox 95 96 O2 Delivery Room Air Room Air Room Air Room Air 10/30/18 12/11/17 12/11/17 12/11/17 03:35 06:26 06:27 06:56 Pulse 63 Resp 16 18 B/P (MAP) 147/39 Pulse Ox 96 O2 Delivery Room Air Room Air O2 Flow Rate 2.0 12/11/17 12/11/17 12/11/17 07:00 08:00 11:00 Temp 97.8 98.0 97.8 98.0 Pulse 55 62 Resp 18 18 B/P (MAP) 101/36 (57) 95/41 (59) Pulse Ox 95 96 O2 Delivery Room Air Room Air Room Air Intake and Output 12/10/17 12/10/17 12/11/17 15:00 23:00 07:00 Intake Total 2230 ml Output Total 2400 ml 1000 ml Balance -170 ml -1000 ml Nutrition Consultation Dietary Evaluation: Recommendations by RD: Increase Calorie Intake, Protein supplementation Comments: continue Ensure pudding (buttercotch) w/lunch and dinner continue Magic cup (orange) w/lunch and dinner Continue w/MVI and kassie-luann Expected Outcomes/Goals: PO intake to meet >75% est needs- met, goal ongoing Malnutrition Findings: Body Fat Depletion (Non Severe: Mild Depletion Weight Status: Underweight BEULAH PINK MD Dec 11, 2017 13:16
--- NOTE | 2017-12-11 13:18 | PDOC ---
SUBJECTIVE ROS No new concerns, sitting up in chair OBJECTIVE Vital Signs Vital Signs Date Time Temp Pulse Resp B/P (MAP) Pulse Ox O2 Delivery O2 Flow Rate FiO2 12/11/17 11:00 98.0 62 18 95/41 (59) 96 Room Air 98.0 12/11/17 06:56 2.0 I & 0 Intake and Output 12/11/17 07:00 Intake Total 2230 ml Output Total 3400 ml Balance -1170 ml Intake Oral 2230 ml Stool Total 2400 ml Urine/Stool Mix 1000 ml PHYSICAL EXAM Physical Exam GENERAL: Sitting in the chair HEENT: Oral cavity moist LUNGS: Clear HEART: S1, S2. ABDOMEN: Soft. BS +. Ostomy, nontender EXTREMITIES: Left BKA, stump. 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 right big toe tender Tunneled HDC (11/16) DIAGNOSIS/ASSESSMENT Assessment & Plan ESRD - On HD MWF No indication for HD today Tomorrow as per her schedule Chronic Low BP - asymptomatic Has been Tolerating HD well On midodrine now as per primary H/O sepsis ECHO without evidence of veg H/O infected right HDC cath s/p removal on 11/01 + MRSA. -s/p interval placement of a temp [facility]/HDC on 11/01; removed. -s/p Tunneled HDC placement on 11/16. ID Following Hx of Resp failure w/ pleural effusion s/p thoracentesis Bilat in Oct 2017 Afib- stable Anemia- stable On Aranesp Sec Hyper pTH - On Cinacalcet Hyper Phosphatemia - Start Renvela Severe RLE PAD S/P right anterior tibial angioplasty on 12/06/17. Seen by vascular Patent vessels with anterior tibial runoff, severe disease in foot. If this does not improve patient's pain and toe healing, only other option is amputation. No further revascularization is possible. COMMENT/RELEVANT DATA Meds Current Medications Medications (Trade) Dose Ordered Sig/Yovanny Start Time Stop Time Status Last Admin Dose Admin Acetaminophen (Tylenol Supp) 650 mg PRN Q6HRS PRN 12/03/17 10:45 Acetaminophen (Tylenol) 500 mg 1X PRN PRN 12/10/17 12:30 12/11/17 12:29 DC 12/11/17 08:52 500 MG Acetaminophen/ Hydrocodone Bitart (Lortab 7.5/325) 1 tab PRN Q8HRS PRN 12/03/17 10:45 12/11/17 11:12 1 TAB Albumin Human 200 ml @ 200 mls/hr 1X PRN PRN 12/10/17 12:30 12/10/17 18:29 DC Alprazolam (Xanax) 0.5 mg PRN Q8HRS PRN 12/06/17 02:45 12/09/17 10:28 0.5 MG Artificial Tears (Artificial Tears) 1 drop PRN Q15MIN PRN 12/03/17 10:45 Aspirin (Ecotrin) 81 mg [id number] 12/11/17 12:00 Ceftaroline Fosamil 200 mg/ Sodium Chloride 250 ml @ 250 mls/hr Q12HR 12/03/17 00:30 12/11/17 08:48 250 MLS/HR Cinacalcet (Sensipar) 30 mg HS 12/03/17 21:00 12/10/17 20:55 30 MG Daptomycin 250 mg/ Sodium Chloride 50 ml @ 100 mls/hr Q48H 12/04/17 09:00 12/10/17 10:03 100 MLS/HR Darbepoetin Justin (Aranesp) 60 mcg WEEKLYHS 12/03/17 21:00 12/10/17 22:28 60 MCG Diphenhydramine HCl (Benadryl) 25 mg 1X PRN PRN 12/10/17 12:30 12/11/17 12:29 DC Diphenoxylate HCl/ Atropine (Lomotil) 1 tab PRN Q8HRS PRN 12/03/17 10:45 12/08/17 12:43 1 TAB Fentanyl Citrate (Fentanyl 2ml Vial) 100 mcg 1X ONCE 12/06/17 12:15 12/06/17 12:16 DC 12/06/17 12:31 100 MCG Heparin Sodium (Porcine) (Hep Lock Adult) 500 unit 1X ONCE 12/06/17 12:45 12/06/17 12:46 DC 12/06/17 12:38 100 UNIT Heparin Sodium (Porcine) (Heparin Sodium) 4,000 unit 1X ONCE 12/06/17 12:15 12/06/17 12:16 DC 12/06/17 12:33 5,000 UNIT Heparin Sodium/ Sodium Chloride (HEPARIN for ARTERIAL LINE FLUSH) 1,000 unit 1X ONCE 12/06/17 12:15 12/06/17 12:16 DC 12/06/17 12:29 1,000 UNIT Info (CONTRAST GIVEN -- Rx MONITORING) 1 each PRN DAILY PRN 12/06/17 13:00 12/08/17 12:59 DC Info (PHARMACY MONITORING -- do not chart) 1 each PRN DAILY PRN 12/10/17 12:30 Iodixanol (Visipaque 320) 97 ml 1X ONCE 12/06/17 12:45 12/06/17 12:46 DC 12/06/17 12:38 97 ML Lactobacillus Rhamnosus (Culturelle) 1 cap BID 12/03/17 21:00 12/04/17 14:23 DC 12/04/17 13:09 1 CAP Lidocaine/Sodium Bicarbonate (Buffered Lidocaine 1%) 3 ml 1X ONCE 12/06/17 12:15 12/06/17 12:16 DC 12/06/17 12:29 6 ML Midodrine (Proamatine) 10 mg [id number] 12/03/17 13:00 12/11/17 06:27 10 MG Morphine Sulfate (Morphine Sulfate) 4 mg PRN Q2HR PRN 12/02/17 23:30 12/03/17 23:29 DC 12/03/17 01:16 4 MG Multivitamins (Thera M Plus) 1 tab DAILY 12/04/17 09:00 12/11/17 08:52 1 TAB Nitroglycerin (Nitroglycerin) 200 mcg 1X ONCE 12/06/17 12:15 12/06/17 12:16 DC 12/06/17 12:29 100 MCG Norepinephrine Bitartrate 250 ml @ 1.875 mls/ hr CONT PRN 12/03/17 01:15 12/04/17 15:30 DC Ondansetron HCl (Zofran) 4 mg PRN Q8HRS PRN 12/02/17 23:30 12/03/17 23:29 DC Pharmacy Consult (C.diff Med Screen By Rx) 1 each 1X ONCE 12/03/17 09:00 12/03/17 09:01 DC Phytonadione (Vitamin K Ampule) 5 mg 1X ONCE 12/05/17 13:00 12/05/17 13:01 DC 12/05/17 15:11 5 MG Potassium Chloride/Water 50 ml @ 50 mls/hr 1X ONCE 12/03/17 12:00 12/03/17 12:59 DC 12/03/17 13:09 50 MLS/HR Potassium Chloride (Klor-Con) 40 meq 1X ONCE 12/08/17 13:00 12/08/17 13:02 DC 12/08/17 14:56 40 MEQ Silver Sulfadiazine (Silvadene) 1 tj DAILY 12/10/17 13:30 12/11/17 08:52 1 TJ Sodium Chloride 1,000 ml @ 400 mls/hr Q2H30M PRN 12/10/17 12:23 12/11/17 00:22 DC Sulfasalazine (Azulfidine) 500 mg BID 12/03/17 11:30 12/11/17 11:11 500 MG Triamcinolone Acetonide (Kenalog) 1 tj PRN Q8HRS PRN 12/03/17 10:45 Vitamin B Complex/ Vitamin C (Yaneth-Nabeel) 1 tab DAILY 12/03/17 11:30 12/11/17 11:11 1 TAB Lab Laboratory Tests Test 12/11/17 04:25 White Blood Count 12.3 x10^3/uL (4.0-11.0) Red Blood Count 3.39 x10^6/uL (3.50-5.40) Hemoglobin 9.1 g/dL (12.0-15.5) Hematocrit 27.9 % (36.0-47.0) Mean Corpuscular Volume 82 fL (79-100) Mean Corpuscular Hemoglobin 27 pg (25-35) Mean Corpuscular Hemoglobin Concent 33 g/dL (31-37) Red Cell Distribution Width 20.2 % (11.5-14.5) Platelet Count 218 x10^3/uL (140-400) Neutrophils (%) (Auto) 73 % (31-73) Lymphocytes (%) (Auto) 13 % (24-48) Monocytes (%) (Auto) 7 % (0-9) Eosinophils (%) (Auto) 7 % (0-3) Basophils (%) (Auto) 1 % (0-3) Neutrophils # (Auto) 8.9 x10^3uL (1.8-7.7) Lymphocytes # (Auto) 1.6 x10^3/uL (1.0-4.8) Monocytes # (Auto) 0.9 x10^3/uL (0.0-1.1) Eosinophils # (Auto) 0.8 x10^3/uL (0.0-0.7) Basophils # (Auto) 0.1 x10^3/uL (0.0-0.2) Sodium Level 141 mmol/L (136-145) Potassium Level 3.8 mmol/L (3.5-5.1) Chloride Level 100 mmol/L (98-107) Carbon Dioxide Level 28 mmol/L (21-32) Anion Gap 13 (6-14) Blood Urea Nitrogen 14 mg/dL (7-20) Creatinine 3.2 mg/dL (0.6-1.0) Estimated GFR (Cockcroft-Gault) 17.1 Glucose Level 88 mg/dL (70-99) Calcium Level 9.9 mg/dL (8.5-10.1) Results All relevant outside records, renal labs, imaging studies, telemetry/EKG's were reviewed. YVONNE ZAVALA MD Dec 11, 2017 13:18
[2017-12-11 15:00] VITALS: BP 122/43
[2017-12-11] MEDS: SEVELAMER CARBONATE 800 MG TABLET. PO SCH (18:47)
[2017-12-11 19:30] VITALS: BP 78/44
[2017-12-11] MEDS: CINACALCET HCL 30 MG TABLET PO SCH (20:52)
[2017-12-11 23:33] VITALS: BP 72/41
[2017-12-12 03:21] VITALS: BP 83/46
[2017-12-12] MEDS: HYDROcodone/APAP 7.5/325MG 1 TAB TABLET PO PRN ×2 (05:44→16:43)
[2017-12-12] MEDS: MIDODRINE 5 MG TABLET PO SCH ×3 (05:50→17:52)
[2017-12-12 06:13] LABS: BASO # 0.1 x10^3/uL (0.0-0.2); BASO % 1 % (0-3); EOS % 10 % (0-3); HEMATOCRIT 28.2 % (36.0-47.0); LYMPH # 1.8 x10^3/uL (1.0-4.8); LYMPH % 18 % (24-48); MEAN CORPUSCULAR HEMOGLOBIN 26 pg (25-35); MEAN CORPUSCULAR HGB CONC 32 g/dL (31-37); MEAN CORPUSCULAR VOLUME 82 fL (79-100); MONO # 0.8 x10^3/uL (0.0-1.1); MONO % 8 % (0-9); NEUT # 6.2 x10^3uL (1.8-7.7); NEUT % 62 % (31-73); PLATELET COUNT 200 x10^3/uL (140-400); RED BLOOD COUNT 3.44 x10^6/uL (3.50-5.40); RED CELL DISTRIBUTION WIDTH 20.1 % (11.5-14.5)
[2017-12-12 06:15] LABS: CALCIUM 9.9 mg/dL (8.5-10.1); GFR 10.2; POTASSIUM 4.1 mmol/L (3.5-5.1)
[2017-12-12 07:00] VITALS: BP 82/45
[2017-12-12] MEDS: silver sulfADIAZINE 1% CREAM 25GM TUBE. TP SCH (09:00)
[2017-12-12] MEDS: MULTIVITAMIN with MINERAL TABLET. PO SCH (09:35)
[2017-12-12] MEDS: sulfaSALAzine 500 MG TABLET PO SCH ×2 (09:35→20:40)
[2017-12-12] MEDS: FOLIC/VIT B COMP W-C (RENAL) TABLET. PO SCH (09:35)
[2017-12-12] MEDS: SEVELAMER CARBONATE 800 MG TABLET. PO SCH ×2 (09:35→12:00)
[2017-12-12] MEDS: NORMAL SALINE IV SCH ×3 (09:35→20:40)
[2017-12-12] MEDS: ASPIRIN ENTERIC COATED 81 MG TABLET.DR. PO SCH (09:35)
[2017-12-12] MEDS: DAPTOMYCIN IV SCH (09:35)
[2017-12-12 11:00] VITALS: BP 66/31
[2017-12-12] MEDS: CEFTAROLINE FOSAMIL IV SCH ×2 (11:04→20:40)
--- NOTE | 2017-12-12 11:56 | PDOC ---
Infectious Disease Note Subjective Subjective feeling good, very weak, but no other complaints ROS ROS no n/v/d/fever Vital Sign Vital Signs Vital Signs Date Time Temp Pulse Resp B/P (MAP) Pulse Ox O2 Delivery O2 Flow Rate FiO2 12/12/17 11:00 99.1 61 16 66/31 (43) 96 Room Air 99.1 Physical Exam PHYSICAL EXAM GENERAL: Sitting in the chair, smiling HEENT: Oral cavity dry. LUNGS: Clear HEART: S1, S2. ABDOMEN: Soft. BS +. Ostomy, nontender EXTREMITIES: Left BKA, stump. Right lateral leg wound, small 1cm, . 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 right big toe tender but not red, swollen or any wound Tunneled HDC (11/16) w/o signs of complications. Left chest PICC (11/26) clean Labs Lab Laboratory Tests Test 12/12/17 05:45 White Blood Count 10.0 x10^3/uL (4.0-11.0) Red Blood Count 3.44 x10^6/uL (3.50-5.40) Hemoglobin 9.0 g/dL (12.0-15.5) Hematocrit 28.2 % (36.0-47.0) Mean Corpuscular Volume 82 fL (79-100) Mean Corpuscular Hemoglobin 26 pg (25-35) Mean Corpuscular Hemoglobin Concent 32 g/dL (31-37) Red Cell Distribution Width 20.1 % (11.5-14.5) Platelet Count 200 x10^3/uL (140-400) Neutrophils (%) (Auto) 62 % (31-73) Lymphocytes (%) (Auto) 18 % (24-48) Monocytes (%) (Auto) 8 % (0-9) Eosinophils (%) (Auto) 10 % (0-3) Basophils (%) (Auto) 1 % (0-3) Neutrophils # (Auto) 6.2 x10^3uL (1.8-7.7) Lymphocytes # (Auto) 1.8 x10^3/uL (1.0-4.8) Monocytes # (Auto) 0.8 x10^3/uL (0.0-1.1) Eosinophils # (Auto) 1.0 x10^3/uL (0.0-0.7) Basophils # (Auto) 0.1 x10^3/uL (0.0-0.2) Sodium Level 136 mmol/L (136-145) Potassium Level 4.1 mmol/L (3.5-5.1) Chloride Level 95 mmol/L (98-107) Carbon Dioxide Level 26 mmol/L (21-32) Anion Gap 15 (6-14) Blood Urea Nitrogen 28 mg/dL (7-20) Creatinine 5.0 mg/dL (0.6-1.0) Estimated GFR (Cockcroft-Gault) 10.2 Glucose Level 85 mg/dL (70-99) Calcium Level 9.9 mg/dL (8.5-10.1) Micro Microbiology 12/02/17 Blood Culture - Preliminary, Resulted NO GROWTH AFTER 1 DAY Objective Assessment Chronically low BP Sepsis with reported MRSA from 11/21 POA ([facility]) while on Vanc for MRSA bacteremia from previous admission -Repeat BC from 11/22 & NGTD. PHILIP 11/27 neg Hypotension - resolved Right basilar atelectasis versus infiltrate H/O High grade MRSA bacteremia previous admission from 10/31. source infected HD cath,s/p removal. Discharged on vanc -Repeat BC on 11/02, 11/04 & 11/08 positive. BC 11/13 negative -ECHO without evidence of veg H/O infected right HDC cath s/p removal on 11/01 + MRSA. -s/p interval placement of a temp [facility]/HDC on 11/01; removed. -s/p Tunneled HDC placement on 11/16. Leukocytosis - better Resp failure w/ pleural effusion s/p thoracentesis 11/07 with 1/1 liter removed pH 7.51. G/S - Gram variable lillian, no WBC, C/S Neg, was on Zosyn and empiric Zyvox Afib ESRD Anemia Lt BKA Chronic lateral rt leg nonhealing wound,, s/p angio Dysphagia Diarrhea. C. diff neg 11/22 Plan Plan of Care Cont ceftaroline and daptomycin as planned last neg BC 11/23 Can discharge back to SNF on daptomycin alone, Monitor for toxicities. Recent CK 17 cont supportive care weekly CBC, Cr & CPK faxed to our office [phone] f/u appt 1-2 weeks from discharge DOMONIQUE HARDEN MD Dec 12, 2017 11:56
[2017-12-12] MEDS ORDERED: IV NORMAL SALINE 1000ML BAG 1,000 ML IV PRN ×2 (12:00)
--- NOTE | 2017-12-12 13:15 | PDOC ---
PROGRESS NOTES Chief Complaint Chief Complaint Recent sepsis before this admission with MRSA bacteremia Diarrhea Hypokalemia chronic Hypotension on midodrine H/o MRSA bacteremia ESRD on HD H/o HTN H/o CAD left leg BKA rt big toe pain with extensive distal vascular dz. rt leg small ulcer. rt great toe subungnal fluid abscess s/p nail removal 12/10 plan: fu with vascular, did angiogram and angioplasty with little improvement , no further sx needed except if pt want amputation.asa daily fu with ID, on 2 iv abx ,dc with dapto to SNF when insurance approve fu with sw cont HD on midodrine dc when SW find a place, rt big toe wound care History of Present Illness History of Present Illness Pt seen and examined while laying in bed Discussed w/RN Discussed w/pt rt big toe nail removed by pod 12/10, c/o more pain today, 11/21 Vitals Vitals Vital Signs Date Time Temp Pulse Resp B/P (MAP) Pulse Ox O2 Delivery O2 Flow Rate FiO2 12/12/17 11:00 99.1 61 16 66/31 (43) 96 Room Air 99.1 Physical Exam Physical Exam GENERAL: Sitting in the chair, smiling HEENT: Oral cavity dry. LUNGS: Clear HEART: S1, S2. ABDOMEN: Soft. BS +. Ostomy, nontender EXTREMITIES: Left BKA, stump. Right lateral leg wound, small 1cm, . 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 right big toe nail partially removed, with dark red surface, + tenderness. Tunneled HDC (11/16) w/o signs of complications. Left chest PICC (11/26) clean General: Alert, Oriented X3, Cooperative, No acute distress Heart: Regular rate, Normal S1, Normal S2, No murmurs, Other (faint heart sounds) Lungs: Clear Abdomen: Normal bowel sounds, Soft, No tenderness, Other (Left lower abd ostomy ) Extremities: No cyanosis, No edema, Other (Left BKA, healing right sacral ulcer , mild desquamation of right toes ) Skin: No breakdown, No significant lesion Labs LABS Laboratory Tests Test 12/12/17 05:45 White Blood Count 10.0 x10^3/uL (4.0-11.0) Red Blood Count 3.44 x10^6/uL (3.50-5.40) Hemoglobin 9.0 g/dL (12.0-15.5) Hematocrit 28.2 % (36.0-47.0) Mean Corpuscular Volume 82 fL (79-100) Mean Corpuscular Hemoglobin 26 pg (25-35) Mean Corpuscular Hemoglobin Concent 32 g/dL (31-37) Red Cell Distribution Width 20.1 % (11.5-14.5) Platelet Count 200 x10^3/uL (140-400) Neutrophils (%) (Auto) 62 % (31-73) Lymphocytes (%) (Auto) 18 % (24-48) Monocytes (%) (Auto) 8 % (0-9) Eosinophils (%) (Auto) 10 % (0-3) Basophils (%) (Auto) 1 % (0-3) Neutrophils # (Auto) 6.2 x10^3uL (1.8-7.7) Lymphocytes # (Auto) 1.8 x10^3/uL (1.0-4.8) Monocytes # (Auto) 0.8 x10^3/uL (0.0-1.1) Eosinophils # (Auto) 1.0 x10^3/uL (0.0-0.7) Basophils # (Auto) 0.1 x10^3/uL (0.0-0.2) Sodium Level 136 mmol/L (136-145) Potassium Level 4.1 mmol/L (3.5-5.1) Chloride Level 95 mmol/L (98-107) Carbon Dioxide Level 26 mmol/L (21-32) Anion Gap 15 (6-14) Blood Urea Nitrogen 28 mg/dL (7-20) Creatinine 5.0 mg/dL (0.6-1.0) Estimated GFR (Cockcroft-Gault) 10.2 Glucose Level 85 mg/dL (70-99) Calcium Level 9.9 mg/dL (8.5-10.1) Comment Review of Relevant I have reviewed the following items olivia (where applicable) has been applied. Labs Laboratory Tests Test 12/11/17 04:25 12/12/17 05:45 White Blood Count 12.3 x10^3/uL (4.0-11.0) 10.0 x10^3/uL (4.0-11.0) Red Blood Count 3.39 x10^6/uL (3.50-5.40) 3.44 x10^6/uL (3.50-5.40) Hemoglobin 9.1 g/dL (12.0-15.5) 9.0 g/dL (12.0-15.5) Hematocrit 27.9 % (36.0-47.0) 28.2 % (36.0-47.0) Mean Corpuscular Volume 82 fL (79-100) 82 fL (79-100) Mean Corpuscular Hemoglobin 27 pg (25-35) 26 pg (25-35) Mean Corpuscular Hemoglobin Concent 33 g/dL (31-37) 32 g/dL (31-37) Red Cell Distribution Width 20.2 % (11.5-14.5) 20.1 % (11.5-14.5) Platelet Count 218 x10^3/uL (140-400) 200 x10^3/uL (140-400) Neutrophils (%) (Auto) 73 % (31-73) 62 % (31-73) Lymphocytes (%) (Auto) 13 % (24-48) 18 % (24-48) Monocytes (%) (Auto) 7 % (0-9) 8 % (0-9) Eosinophils (%) (Auto) 7 % (0-3) 10 % (0-3) Basophils (%) (Auto) 1 % (0-3) 1 % (0-3) Neutrophils # (Auto) 8.9 x10^3uL (1.8-7.7) 6.2 x10^3uL (1.8-7.7) Lymphocytes # (Auto) 1.6 x10^3/uL (1.0-4.8) 1.8 x10^3/uL (1.0-4.8) Monocytes # (Auto) 0.9 x10^3/uL (0.0-1.1) 0.8 x10^3/uL (0.0-1.1) Eosinophils # (Auto) 0.8 x10^3/uL (0.0-0.7) 1.0 x10^3/uL (0.0-0.7) Basophils # (Auto) 0.1 x10^3/uL (0.0-0.2) 0.1 x10^3/uL (0.0-0.2) Sodium Level 141 mmol/L (136-145) 136 mmol/L (136-145) Potassium Level 3.8 mmol/L (3.5-5.1) 4.1 mmol/L (3.5-5.1) Chloride Level 100 mmol/L (98-107) 95 mmol/L (98-107) Carbon Dioxide Level 28 mmol/L (21-32) 26 mmol/L (21-32) Anion Gap 13 (6-14) 15 (6-14) Blood Urea Nitrogen 14 mg/dL (7-20) 28 mg/dL (7-20) Creatinine 3.2 mg/dL (0.6-1.0) 5.0 mg/dL (0.6-1.0) Estimated GFR (Cockcroft-Gault) 17.1 10.2 Glucose Level 88 mg/dL (70-99) 85 mg/dL (70-99) Calcium Level 9.9 mg/dL (8.5-10.1) 9.9 mg/dL (8.5-10.1) Laboratory Tests Test 12/12/17 05:45 White Blood Count 10.0 x10^3/uL (4.0-11.0) Red Blood Count 3.44 x10^6/uL (3.50-5.40) Hemoglobin 9.0 g/dL (12.0-15.5) Hematocrit 28.2 % (36.0-47.0) Mean Corpuscular Volume 82 fL (79-100) Mean Corpuscular Hemoglobin 26 pg (25-35) Mean Corpuscular Hemoglobin Concent 32 g/dL (31-37) Red Cell Distribution Width 20.1 % (11.5-14.5) Platelet Count 200 x10^3/uL (140-400) Neutrophils (%) (Auto) 62 % (31-73) Lymphocytes (%) (Auto) 18 % (24-48) Monocytes (%) (Auto) 8 % (0-9) Eosinophils (%) (Auto) 10 % (0-3) Basophils (%) (Auto) 1 % (0-3) Neutrophils # (Auto) 6.2 x10^3uL (1.8-7.7) Lymphocytes # (Auto) 1.8 x10^3/uL (1.0-4.8) Monocytes # (Auto) 0.8 x10^3/uL (0.0-1.1) Eosinophils # (Auto) 1.0 x10^3/uL (0.0-0.7) Basophils # (Auto) 0.1 x10^3/uL (0.0-0.2) Sodium Level 136 mmol/L (136-145) Potassium Level 4.1 mmol/L (3.5-5.1) Chloride Level 95 mmol/L (98-107) Carbon Dioxide Level 26 mmol/L (21-32) Anion Gap 15 (6-14) Blood Urea Nitrogen 28 mg/dL (7-20) Creatinine 5.0 mg/dL (0.6-1.0) Estimated GFR (Cockcroft-Gault) 10.2 Glucose Level 85 mg/dL (70-99) Calcium Level 9.9 mg/dL (8.5-10.1) Microbiology 12/02/17 Blood Culture - Final, Complete NO GROWTH AFTER 5 DAYS Medications Current Medications Sodium Chloride 500 ml @ 250 mls/hr 1X ONCE IV Last administered on at 23:00; Start 12/02/17 at 23:15; Stop 12/03/17 at 01:14; Status DC Norepinephrine Bitartrate 250 ml @ 0 mls/hr 1X ONCE IV Last administered on at 23:27; Start 12/02/17 at 23:30; Stop 12/02/17 at 23:31; Status DC Ondansetron HCl (Zofran) 4 mg PRN Q8HRS PRN IV NAUSEA/VOMITING; Start at 23:30; Stop 12/03/17 at 23:29; Status DC Morphine Sulfate (Morphine Sulfate) 4 mg PRN Q2HR PRN IV PAIN Last administered on 12/03/17at 01:16; Start 12/02/17 at 23:30; Stop 12/03/17 at 23 :29; Status DC Acetaminophen (Tylenol) 650 mg PRN Q4HRS PRN PO FEVER; Start 12/02/17 at 23:30 ; Stop 12/03/17 at 23:29; Status DC Ceftaroline Fosamil 200 mg/ Sodium Chloride 250 ml @ 250 mls/hr Q12HR IV Last administered on 12/12/17at 11:04; Start 12/03/17 at 00:30 Norepinephrine Bitartrate 250 ml @ 1.875 mls/ hr CONT PRN IV SEE I/O RECORD; Start 12/03/17 at 01:15; Stop 12/04/17 at 15:30; Status DC Pharmacy Consult (C.diff Med Screen By Rx) 1 each 1X ONCE MC ; Start 12/03/17 at 09:00; Stop 12/03/17 at 09:01; Status DC Lactobacillus Rhamnosus (Culturelle) 1 cap BID PO Last administered on at 13:09; Start 12/03/17 at 21:00; Stop 12/04/17 at 14:23; Status DC Acetaminophen (Tylenol Supp) 650 mg PRN Q6HRS PRN ID MILD PAIN / TEMP; Start 12/03/17 at 10:45 Cinacalcet (Sensipar) 30 mg HS PO Last administered on 12/11/17at 20:52; Start 12/03/17 at 21:00 Diphenoxylate HCl/ Atropine (Lomotil) 1 tab PRN Q8HRS PRN PO DIARRHEA Last administered on 12/08/17at 12:43; Start 12/03/17 at 10:45 Vitamin B Complex/ Vitamin C (Kassie-Luann) 1 tab DAILY PO Last administered on at 09:35; Start 12/03/17 at 11:30 Acetaminophen/ Hydrocodone Bitart (Lortab 7.5/325) 1 tab PRN Q8HRS PRN PO MODERATE-SEVERE PAIN Last administered on 12/12/17at 05:44; Start 12/03/17 at 10:45 Artificial Tears (Artificial Tears) 1 drop PRN Q15MIN PRN OU DRY EYE; Start at 10:45 Triamcinolone Acetonide (Kenalog) 1 hanh PRN Q8HRS PRN TP RASH; Start 12/03/17 at 10:45 Midodrine (Proamatine) 10 mg [id number] PO Last administered on 12/12/17at 05:50; Start 12/03/17 at 13:00 Multivitamins (Thera M Plus) 1 tab DAILY PO Last administered on 12/12/17at 09: 35; Start 12/04/17 at 09:00 Sulfasalazine (Azulfidine) 500 mg BID PO Last administered on 12/12/17at 09:35 ; Start 12/03/17 at 11:30 Potassium Chloride/Water 50 ml @ 50 mls/hr 1X ONCE IV Last administered on at 13:09; Start 12/03/17 at 12:00; Stop 12/03/17 at 12:59; Status DC Darbepoetin Justin (Aranesp) 60 mcg WEEKLYHS SQ Last administered on 12/10/17at 22:28; Start 12/03/17 at 21:00 Heparin Sodium (Porcine) (Heparin Sodium) 5,000 unit Q8HRS SQ Last administered on 12/04/17at 06:01; Start 12/03/17 at 14:00; Stop 12/04/17 at 13 :44; Status DC Daptomycin 250 mg/ Sodium Chloride 50 ml @ 100 mls/hr Q48H IV Last administered on 12/12/17at 09:35; Start 12/04/17 at 09:00 Iodixanol (Visipaque 320) 100 ml STK-MED ONCE .ROUTE ; Start 12/04/17 at 08:38 ; Stop 12/04/17 at 08:39; Status DC Lidocaine/Sodium Bicarbonate (Buffered Lidocaine 1%) 3 ml STK-MED ONCE .ROUTE ; Start 12/04/17 at 08:38; Stop 12/04/17 at 08:39; Status DC Heparin Sodium/ Sodium Chloride 0 ml @ As Directed STK-MED ONCE .ROUTE ; Start 12/04/17 at 08:39; Stop 12/04/17 at 08:40; Status DC Sodium Chloride 1,000 ml @ 1,000 mls/hr Q1H PRN IV hypotension; Start at 08:51; Stop 12/05/17 at 14:50; Status DC Sodium Chloride 1,000 ml @ 400 mls/hr Q2H30M PRN IV PATENCY; Start 12/05/17 at 08:51; Stop 12/05/17 at 20:50; Status DC Info (PHARMACY MONITORING -- do not chart) 1 each PRN DAILY PRN MC SEE COMMENTS ; Start 12/05/17 at 09:00; Status UNV Info (PHARMACY MONITORING -- do not chart) 1 each PRN DAILY PRN MC SEE COMMENTS ; Start 12/05/17 at 09:00; Stop 12/07/17 at 13:44; Status DC Acetaminophen (Tylenol) 650 mg 1X PRN PRN PO PRE-TRANSFUSION; Start 12/05/17 at 10:30; Stop 12/05/17 at 21:00; Status DC Diphenhydramine HCl (Benadryl) 25 mg PRN 1X PRN PO PRE-TRANSFUSION; Start at 10:30; Stop 12/05/17 at 21:00; Status DC Phytonadione (Vitamin K Ampule) 5 mg 1X ONCE SQ Last administered on at 15:11; Start 12/05/17 at 13:00; Stop 12/05/17 at 13:01; Status DC Fentanyl Citrate (Fentanyl 2ml Vial) 25 mcg PRN Q4HRS PRN IV PAIN MILD Last administered on 12/09/17at 11:05; Start 12/05/17 at 22:10 Alprazolam (Xanax) 0.5 mg PRN Q8HRS PRN PO ANXIETY / AGITATION Last administered on 12/09/17at 10:28; Start 12/06/17 at 02:45 Fentanyl Citrate (Fentanyl 2ml Vial) 50 mcg PRN Q2HR PRN IV PAIN MODERATE TO SEVERE Last administered on 12/11/17at 06:26; Start 12/06/17 at 02:45 Iodixanol (Visipaque 320) 100 ml STK-MED ONCE .ROUTE ; Start 12/06/17 at 10:49 ; Stop 12/06/17 at 10:50; Status DC Lidocaine/Sodium Bicarbonate (Buffered Lidocaine 1%) 3 ml STK-MED ONCE .ROUTE ; Start 12/06/17 at 10:49; Stop 12/06/17 at 10:50; Status DC Heparin Sodium/ Sodium Chloride 1,000 ml @ As Directed STK-MED ONCE .ROUTE ; Start 12/06/17 at 10:49; Stop 12/06/17 at 10:50; Status DC Heparin Sodium/ Sodium Chloride 500 ml @ As Directed STK-MED ONCE .ROUTE ; Start 12/06/17 at 11:02; Stop 12/06/17 at 11:03; Status DC Fentanyl Citrate (Fentanyl 2ml Vial) 100 mcg STK-MED ONCE .ROUTE ; Start at 11:16; Stop 12/06/17 at 11:17; Status DC Heparin Sodium (Porcine) (Heparin Sodium) 10,000 unit STK-MED ONCE .ROUTE ; Start 12/06/17 at 11:16; Stop 12/06/17 at 11:17; Status DC Nitroglycerin (Nitroglycerin) 200 mcg 1X ONCE IART Last administered on at 12:29; Start 12/06/17 at 12:15; Stop 12/06/17 at 12:16; Status DC Heparin Sodium/ Sodium Chloride (HEPARIN for ARTERIAL LINE FLUSH) 1,000 unit 1X ONCE IART Last administered on 12/06/17at 12:29; Start 12/06/17 at 12:15; Stop 12/06/17 at 12:16; Status DC Lidocaine/Sodium Bicarbonate (Buffered Lidocaine 1%) 3 ml 1X ONCE IJ Last administered on 12/06/17at 12:29; Start 12/06/17 at 12:15; Stop 12/06/17 at 12 :16; Status DC Fentanyl Citrate (Fentanyl 2ml Vial) 100 mcg 1X ONCE IV Last administered on 12/06/17at 12:31; Start 12/06/17 at 12:15; Stop 12/06/17 at 12:16; Status DC Heparin Sodium (Porcine) (Heparin Sodium) 4,000 unit 1X ONCE IV Last administered on 12/06/17at 12:33; Start 12/06/17 at 12:15; Stop 12/06/17 at 12 :16; Status DC Heparin Sodium (Porcine) (Hep Lock Adult) 500 unit STK-MED ONCE IV ; Start at 12:34; Stop 12/06/17 at 12:35; Status DC Iodixanol (Visipaque 320) 97 ml 1X ONCE IART Last administered on 12/06/17at 12:38; Start 12/06/17 at 12:45; Stop 12/06/17 at 12:46; Status DC Heparin Sodium (Porcine) (Hep Lock Adult) 500 unit 1X ONCE IV Last administered on 12/06/17at 12:38; Start 12/06/17 at 12:45; Stop 12/06/17 at 12 :46; Status DC Info (CONTRAST GIVEN -- Rx MONITORING) 1 each PRN DAILY PRN MC SEE COMMENTS; Start 12/06/17 at 13:00; Stop 12/08/17 at 12:59; Status DC Sodium Chloride 1,000 ml @ 1,000 mls/hr Q1H PRN IV hypotension; Start at 13:37; Stop 12/07/17 at 19:36; Status DC Sodium Chloride 1,000 ml @ 400 mls/hr Q2H30M PRN IV PATENCY; Start 12/07/17 at 13:37; Stop 12/08/17 at 01:36; Status DC Info (PHARMACY MONITORING -- do not chart) 1 each PRN DAILY PRN MC SEE COMMENTS ; Start 12/07/17 at 13:45; Status Cancel Potassium Chloride (Klor-Con) 40 meq 1X ONCE PO Last administered on at 14:56; Start 12/08/17 at 13:00; Stop 12/08/17 at 13:02; Status DC Sodium Chloride 1,000 ml @ 1,000 mls/hr Q1H PRN IV hypotension; Start at 12:23; Stop 12/10/17 at 18:22; Status DC Albumin Human 200 ml @ 200 mls/hr 1X PRN PRN IV Hypotension; Start 12/10/17 at 12:30; Stop 12/10/17 at 18:29; Status DC Acetaminophen (Tylenol) 500 mg 1X PRN PRN PO MILD PAIN / TEMP Last administered on 12/11/17at 08:52; Start 12/10/17 at 12:30; Stop 12/11/17 at 12 :29; Status DC Diphenhydramine HCl (Benadryl) 25 mg 1X PRN PRN IV ITCHING; Start 12/10/17 at 12:30; Stop 12/11/17 at 12:29; Status DC Diphenhydramine HCl (Benadryl) 25 mg 1X PRN PRN IV ITCHING; Start 12/10/17 at 12:30; Stop 12/11/17 at 12:29; Status DC Sodium Chloride 1,000 ml @ 400 mls/hr Q2H30M PRN IV PATENCY; Start 12/10/17 at 12:23; Stop 12/11/17 at 00:22; Status DC Info (PHARMACY MONITORING -- do not chart) 1 each PRN DAILY PRN MC SEE COMMENTS ; Start 12/10/17 at 12:30 Silver Sulfadiazine (Silvadene) 1 hanh DAILY TP Last administered on 12/11/17at 08:52; Start 12/10/17 at 13:30 Aspirin (Ecotrin) 81 mg [id number] PO Last administered on 12/12/17at 09:35; Start 12/11/17 at 12:00 Sevelamer Carbonate (Renvela) 800 mg TIDWMEALS PO Last administered on at 09:35; Start 12/11/17 at 17:00 Active Scripts Active Midodrine Hcl 5 Mg Tablet 10 Mg PO [id number] Artificial Tears (Polyvinyl Alcohol) 15 Ml Drops 1 Drop OU PRN Q15MIN PRN 30 Days Acetaminophen Supp (Acetaminophen) 650 Mg Supp.rect 650 Mg ID PRN Q6HRS PRN 30 Days Hydrocodone-Apap 7.5-325 (Hydrocodone Bit/Acetaminophen) 1 Each Tablet 1 Tab PO PRN Q8HRS PRN 7 Days Reported Multivitamins (Multivitamin) 1 Each Tablet 1 Tab PO DAILY Sensipar (Cinacalcet Hcl) 30 Mg Tablet 1 Tab PO HS Azulfidine (Sulfasalazine) 500 Mg Tablet 500 Mg PO BID Lomotil Tablet (Diphenoxylate Hcl/Atropine) 1 Each Tablet 1 Tab PO PRN Q8HRS Nephro-Luann Tablet (Folic Acid/Vitamin B Comp W-C) 0.8 Mg Tablet 1 Tab PO DAILY Triamcinolone Acetonide 0.1% Cream (Triamcinolone Acetonide) 15 Gm Cream..g. 1 Hanh TP PRN Q8HRS apply to bilat legs topically as needed for skin care Vitals/I & O Vital Sign - Last 24 Hours 12/11/17 12/11/17 12/11/17 12/11/17 15:00 16:00 18:48 19:30 Temp 97.7 97.7 Pulse 75 62 62 Resp 18 B/P (MAP) 122/43 (69) 95/41 95/41 Pulse Ox 96 O2 Delivery Room Air Room Air 12/11/17 12/11/17 12/11/17 12/11/17 19:30 20:56 22:00 23:33 Temp 97.8 98.0 97.8 98.0 Pulse 60 60 Resp 18 18 B/P (MAP) 78/44 (55) 72/41 (51) Pulse Ox 96 95 O2 Delivery Room Air Room Air Room Air Room Air 12/12/17 12/12/17 12/12/17 12/12/17 03:21 05:44 05:50 07:00 Temp 98.1 98.1 Pulse 58 58 55 Resp 20 16 B/P (MAP) 83/46 (58) 83/46 82/45 (57) Pulse Ox 96 94 O2 Delivery Room Air Room Air Room Air 12/12/17 11:00 Temp 99.1 99.1 Pulse 61 Resp 16 B/P (MAP) 66/31 (43) Pulse Ox 96 O2 Delivery Room Air Intake and Output 12/11/17 12/11/17 12/12/17 15:00 23:00 07:00 Output Total 350 ml 2435 ml 1150 ml Balance -350 ml -2435 ml -1150 ml Nutrition Consultation Dietary Evaluation: Recommendations by RD: Increase Calorie Intake, Protein supplementation Comments: continue Ensure pudding (changed to vanilla) w/lunch and dinner continue Magic cup (changed to valenzuela) w/lunch and dinner Continue w/MVI and kassie-luann Expected Outcomes/Goals: PO intake to meet >75% est needs- met, goal ongoing Malnutrition Findings: Body Fat Depletion (Non Severe: Mild Depletion Weight Status: Underweight BEULAH PINK MD Dec 12, 2017 13:15
--- NOTE | 2017-12-12 15:01 | PDOC ---
SUBJECTIVE ROS No new concerns, seen on HD OBJECTIVE Vital Signs Vital Signs Date Time Temp Pulse Resp B/P (MAP) Pulse Ox O2 Delivery O2 Flow Rate FiO2 12/12/17 14:13 57 64/33 12/12/17 11:00 99.1 16 96 Room Air 99.1 I & 0 Intake and Output 12/12/17 07:00 Output Total 3935 ml Balance -3935 ml Stool Total 3035 ml Other 900 ml PHYSICAL EXAM Physical Exam GENERAL: NAD HEENT: Unremarkable LUNGS: Clear HEART: S1, S2. ABDOMEN: Soft. BS +. Ostomy, nontender EXTREMITIES: Left BKA, stump. Right lateral leg wound, SEC[employer] W[employer]GE[employer]: Alert, responds appropriately and follow commands SKIN: No generalized rash. Tunneled HDC (11/16) No Cardona DIAGNOSIS/ASSESSMENT Assessment & Plan ESRD - On HD MWF seen on HD , tolerating well Continue as Ordered , DW transmission and coordination engineer Chronic Low BP H/O sepsis ECHO without evidence of veg H/O infected right HDC cath s/p removal on 11/01 + MRSA. -s/p interval placement of a temp LIJ/HDC on 11/01; removed. -s/p Tunneled HDC placement on 11/16. ID Following Sec Hyper pTH - On Cinacalcet Hyper Phosphatemia - Start Renvela , switch to Powder lana RN Severe RLE PAD S/P right anterior tibial angioplasty on 12/06/17. Seen by vascular Patent vessels with anterior tibial runoff, severe disease in foot. If this does not improve patient's pain and toe healing, only other option is amputation. No further revascularization is possible. Hx of Resp failure w/ pleural effusion s/p thoracentesis Bilat in Oct 2017 Afib- stable Anemia- stable On Aranesp Chronic lateral right leg nonhealing wound,, s/p angio 12/06 Diarrhea. C. diff neg 12/03 Discussed with transmission and coordination engineer COMMENT/RELEVANT DATA Meds Current Medications Medications (Trade) Dose Ordered Sig/Yovanny Start Time Stop Time Status Last Admin Dose Admin Acetaminophen (Tylenol Supp) 650 mg PRN Q6HRS PRN 12/03/17 10:45 Acetaminophen (Tylenol) 500 mg 1X PRN PRN 12/10/17 12:30 12/11/17 12:29 DC 12/11/17 08:52 500 MG Acetaminophen/ Hydrocodone Bitart (Lortab 7.5/325) 1 tab PRN Q8HRS PRN 12/03/17 10:45 12/12/17 05:44 1 TAB Albumin Human 200 ml @ 200 mls/hr 1X PRN PRN 12/10/17 12:30 12/10/17 18:29 DC Alprazolam (Xanax) 0.5 mg PRN Q8HRS PRN 12/06/17 02:45 12/09/17 10:28 0.5 MG Artificial Tears (Artificial Tears) 1 drop PRN Q15MIN PRN 12/03/17 10:45 Aspirin (Ecotrin) 81 mg [id number] 12/11/17 12:00 12/12/17 09:35 81 MG Ceftaroline Fosamil 200 mg/ Sodium Chloride 250 ml @ 250 mls/hr Q12HR 12/03/17 00:30 12/12/17 11:04 250 MLS/HR Cinacalcet (Sensipar) 30 mg HS 12/03/17 21:00 12/11/17 20:52 30 MG Daptomycin 250 mg/ Sodium Chloride 50 ml @ 100 mls/hr Q48H 12/04/17 09:00 12/12/17 09:35 100 MLS/HR Darbepoetin Justin (Aranesp) 60 mcg [id number] 12/03/17 21:00 12/10/17 22:28 60 MCG Diphenhydramine HCl (Benadryl) 25 mg 1X PRN PRN 12/10/17 12:30 12/11/17 12:29 DC Diphenoxylate HCl/ Atropine (Lomotil) 1 tab PRN Q8HRS PRN 12/03/17 10:45 12/08/17 12:43 1 TAB Fentanyl Citrate (Fentanyl 2ml Vial) 100 mcg 1X ONCE 12/06/17 12:15 12/06/17 12:16 DC 12/06/17 12:31 100 MCG Heparin Sodium (Porcine) (Hep Lock Adult) 500 unit 1X ONCE 12/06/17 12:45 12/06/17 12:46 DC 12/06/17 12:38 100 UNIT Heparin Sodium (Porcine) (Heparin Sodium) 4,000 unit 1X ONCE 12/06/17 12:15 12/06/17 12:16 DC 12/06/17 12:33 5,000 UNIT Heparin Sodium/ Sodium Chloride (HEPARIN for ARTERIAL LINE FLUSH) 1,000 unit 1X ONCE 12/06/17 12:15 12/06/17 12:16 DC 12/06/17 12:29 1,000 UNIT Info (CONTRAST GIVEN -- Rx MONITORING) 1 each PRN DAILY PRN 12/06/17 13:00 12/08/17 12:59 DC Info (PHARMACY MONITORING -- do not chart) 1 each PRN DAILY PRN 12/10/17 12:30 Iodixanol (Visipaque 320) 97 ml 1X ONCE 12/06/17 12:45 12/06/17 12:46 DC 12/06/17 12:38 97 ML Lactobacillus Rhamnosus (Culturelle) 1 cap BID 12/03/17 21:00 12/04/17 14:23 DC 12/04/17 13:09 1 CAP Lidocaine/Sodium Bicarbonate (Buffered Lidocaine 1%) 3 ml 1X ONCE 12/06/17 12:15 12/06/17 12:16 DC 12/06/17 12:29 6 ML Midodrine (Proamatine) 10 mg [id number] 12/03/17 13:00 12/12/17 14:13 10 MG Morphine Sulfate (Morphine Sulfate) 4 mg PRN Q2HR PRN 12/02/17 23:30 12/03/17 23:29 DC 12/03/17 01:16 4 MG Multivitamins (Thera M Plus) 1 tab DAILY 12/04/17 09:00 12/12/17 09:35 1 TAB Nitroglycerin (Nitroglycerin) 200 mcg 1X ONCE 12/06/17 12:15 12/06/17 12:16 DC 12/06/17 12:29 100 MCG Norepinephrine Bitartrate 250 ml @ 1.875 mls/ hr CONT PRN 12/03/17 01:15 12/04/17 15:30 DC Ondansetron HCl (Zofran) 4 mg PRN Q8HRS PRN 12/02/17 23:30 12/03/17 23:29 DC Pharmacy Consult (C.diff Med Screen By Rx) 1 each 1X ONCE 12/03/17 09:00 12/03/17 09:01 DC Phytonadione (Vitamin K Ampule) 5 mg 1X ONCE 12/05/17 13:00 12/05/17 13:01 DC 12/05/17 15:11 5 MG Potassium Chloride/Water 50 ml @ 50 mls/hr 1X ONCE 12/03/17 12:00 12/03/17 12:59 DC 12/03/17 13:09 50 MLS/HR Potassium Chloride (Klor-Con) 40 meq 1X ONCE 12/08/17 13:00 12/08/17 13:02 DC 12/08/17 14:56 40 MEQ Sevelamer Carbonate (Renvela) 800 mg [id number] 12/11/17 17:00 12/12/17 09:35 800 MG Silver Sulfadiazine (Silvadene) 1 tj DAILY 12/10/17 13:30 12/11/17 08:52 1 TJ Sodium Chloride 1,000 ml @ 400 mls/hr Q2H30M PRN 12/10/17 12:23 12/11/17 00:22 DC Sulfasalazine (Azulfidine) 500 mg BID 12/03/17 11:30 12/12/17 09:35 500 MG Triamcinolone Acetonide (Kenalog) 1 tj PRN Q8HRS PRN 12/03/17 10:45 Vitamin B Complex/ Vitamin C (Yaneth-Nabeel) 1 tab DAILY 12/03/17 11:30 12/12/17 09:35 1 TAB Lab Laboratory Tests Test 12/12/17 05:45 White Blood Count 10.0 x10^3/uL (4.0-11.0) Red Blood Count 3.44 x10^6/uL (3.50-5.40) Hemoglobin 9.0 g/dL (12.0-15.5) Hematocrit 28.2 % (36.0-47.0) Mean Corpuscular Volume 82 fL (79-100) Mean Corpuscular Hemoglobin 26 pg (25-35) Mean Corpuscular Hemoglobin Concent 32 g/dL (31-37) Red Cell Distribution Width 20.1 % (11.5-14.5) Platelet Count 200 x10^3/uL (140-400) Neutrophils (%) (Auto) 62 % (31-73) Lymphocytes (%) (Auto) 18 % (24-48) Monocytes (%) (Auto) 8 % (0-9) Eosinophils (%) (Auto) 10 % (0-3) Basophils (%) (Auto) 1 % (0-3) Neutrophils # (Auto) 6.2 x10^3uL (1.8-7.7) Lymphocytes # (Auto) 1.8 x10^3/uL (1.0-4.8) Monocytes # (Auto) 0.8 x10^3/uL (0.0-1.1) Eosinophils # (Auto) 1.0 x10^3/uL (0.0-0.7) Basophils # (Auto) 0.1 x10^3/uL (0.0-0.2) Sodium Level 136 mmol/L (136-145) Potassium Level 4.1 mmol/L (3.5-5.1) Chloride Level 95 mmol/L (98-107) Carbon Dioxide Level 26 mmol/L (21-32) Anion Gap 15 (6-14) Blood Urea Nitrogen 28 mg/dL (7-20) Creatinine 5.0 mg/dL (0.6-1.0) Estimated GFR (Cockcroft-Gault) 10.2 Glucose Level 85 mg/dL (70-99) Calcium Level 9.9 mg/dL (8.5-10.1) Results All relevant outside records, renal labs, imaging studies, telemetry/EKG's were reviewed. YVONNE ZAVALA MD Dec 12, 2017 15:01
[2017-12-12] MEDS: DIPHENOXYLATE/ATROPINE TABLET. PO PRN (16:44)
[2017-12-12] MEDS ORDERED: DIALYSIS PATIENT. MC PRN ×2 (17:00)
[2017-12-12] MEDS: SEVELAMER CARBONATE 2.4 GM PACKET. PO SCH (17:51)
[2017-12-12 19:00] VITALS: BP 67/33
[2017-12-12] MEDS: CINACALCET HCL 30 MG TABLET PO SCH (20:40)
[2017-12-12] MEDS: ALPRAZolam 0.5 MG TABLET PO PRN (20:40)
[2017-12-12 22:58] VITALS: BP 72/39
[2017-12-13] MEDS: HYDROcodone/APAP 7.5/325MG 1 TAB TABLET PO PRN ×2 (01:44→14:26)
[2017-12-13 02:52] VITALS: BP 56/29
[2017-12-13] MEDS: MIDODRINE 5 MG TABLET PO SCH ×2 (06:26→14:27)
[2017-12-13 06:28] LABS: CALCIUM 10.1 mg/dL (8.5-10.1); CREATININE 2.8 mg/dL (0.6-1.0); GFR 19.9; POTASSIUM 3.6 mmol/L (3.5-5.1)
[2017-12-13 06:42] LABS: BASO # 0.1 x10^3/uL (0.0-0.2); BASO % 1 % (0-3); EOS # 1.2 x10^3/uL (0.0-0.7); EOS % 11 % (0-3); HEMATOCRIT 29.9 % (36.0-47.0); HEMOGLOBIN 9.4 g/dL (12.0-15.5); LYMPH # 1.5 x10^3/uL (1.0-4.8); LYMPH % 14 % (24-48); MEAN CORPUSCULAR HEMOGLOBIN 26 pg (25-35); MEAN CORPUSCULAR HGB CONC 31 g/dL (31-37); MEAN CORPUSCULAR VOLUME 83 fL (79-100); MONO # 0.8 x10^3/uL (0.0-1.1); MONO % 8 % (0-9); NEUT # 7.1 x10^3uL (1.8-7.7); NEUT % 66 % (31-73); PLATELET COUNT 194 x10^3/uL (140-400); RED CELL DISTRIBUTION WIDTH 19.6 % (11.5-14.5); WHITE BLOOD COUNT 10.6 x10^3/uL (4.0-11.0)
[2017-12-13 07:00] VITALS: BP 103/52
--- NOTE | 2017-12-13 07:54 | PDOC ---
PROGRESS NOTES Chief Complaint Chief Complaint Recent sepsis before this admission with MRSA bacteremia Diarrhea Hypokalemia chronic Hypotension on midodrine H/o MRSA bacteremia ESRD on HD H/o HTN H/o CAD left leg BKA rt big toe pain with extensive distal vascular dz. rt leg small ulcer. rt great toe subungnal fluid abscess s/p nail removal 12/10 History of Present Illness History of Present Illness Admitted 12/02/17 with hypotension with dialysis disequilibrium to ICU initially on pressors, improved, however had severe right toe pain with critical PVD found to have subungual abscess, drained and removed with prolonged recovery Pt seen and examined while laying in bed Discussed w/RN Discussed w/pt Feeling improved, still with toe pain, dizzy upon standing without assistance, needs left prosthetic fitting and right heel touch only. A/P: rt big toe nail removed by pod 12/10, c/o more pain today, 11/21 Recent sepsis before this admission with MRSA bacteremia Diarrhea Hypokalemia chronic Hypotension on midodrine H/o MRSA bacteremia ESRD on HD H/o HTN H/o CAD left leg BKA rt big toe pain with extensive distal vascular dz. rt leg small ulcer. rt great toe subungnal fluid abscess s/p nail removal 12/10 plan: fu with vascular, did angiogram and angioplasty with little improvement , no further sx needed except if pt want amputation.asa daily fu with ID, on 2 iv abx ,dc with dapto to SNF when insurance approve fu with sw cont HD on midodrine dc today to SNF, rt big toe wound care Vitals Vitals Vital Signs Date Time Temp Pulse Resp B/P (MAP) Pulse Ox O2 Delivery O2 Flow Rate FiO2 12/13/17 06:26 62 66/35 12/13/17 02:52 97.8 17 100 Room Air 97.8 Physical Exam Physical Exam GENERAL: Sitting in the chair, smiling HEENT: Oral cavity dry. LUNGS: Clear HEART: S1, S2. ABDOMEN: Soft. BS +. Ostomy, nontender EXTREMITIES: Left BKA, stump. Right lateral leg wound, small 1cm, . looks clean ,,, weak pulse HOSE HANDLER: Alert, responds appropriately and follow commands SKIN: No generalized rash. right big toe nail partially removed, with dark red surface, + tenderness. Tunneled HDC (11/16) w/o signs of complications. Left chest PICC (11/26) clean General: Alert, Oriented X3, Cooperative, No acute distress Heart: Regular rate, Normal S1, Normal S2, No murmurs, Other (faint heart sounds) Lungs: Clear Abdomen: Normal bowel sounds, Soft, No tenderness, Other (Left lower abd ostomy ) Extremities: No cyanosis, No edema, Other (Left BKA, healing right sacral ulcer , mild desquamation of right toes ) Skin: No breakdown, No significant lesion Labs LABS Laboratory Tests Test 12/13/17 05:50 White Blood Count 10.6 x10^3/uL (4.0-11.0) Red Blood Count 3.60 x10^6/uL (3.50-5.40) Hemoglobin 9.4 g/dL (12.0-15.5) Hematocrit 29.9 % (36.0-47.0) Mean Corpuscular Volume 83 fL (79-100) Mean Corpuscular Hemoglobin 26 pg (25-35) Mean Corpuscular Hemoglobin Concent 31 g/dL (31-37) Red Cell Distribution Width 19.6 % (11.5-14.5) Platelet Count 194 x10^3/uL (140-400) Neutrophils (%) (Auto) 66 % (31-73) Lymphocytes (%) (Auto) 14 % (24-48) Monocytes (%) (Auto) 8 % (0-9) Eosinophils (%) (Auto) 11 % (0-3) Basophils (%) (Auto) 1 % (0-3) Neutrophils # (Auto) 7.1 x10^3uL (1.8-7.7) Lymphocytes # (Auto) 1.5 x10^3/uL (1.0-4.8) Monocytes # (Auto) 0.8 x10^3/uL (0.0-1.1) Eosinophils # (Auto) 1.2 x10^3/uL (0.0-0.7) Basophils # (Auto) 0.1 x10^3/uL (0.0-0.2) Sodium Level 140 mmol/L (136-145) Potassium Level 3.6 mmol/L (3.5-5.1) Chloride Level 99 mmol/L (98-107) Carbon Dioxide Level 28 mmol/L (21-32) Anion Gap 13 (6-14) Blood Urea Nitrogen 12 mg/dL (7-20) Creatinine 2.8 mg/dL (0.6-1.0) Estimated GFR (Cockcroft-Gault) 19.9 Glucose Level 82 mg/dL (70-99) Calcium Level 10.1 mg/dL (8.5-10.1) Comment Review of Relevant I have reviewed the following items olivia (where applicable) has been applied. Labs Laboratory Tests Test 12/12/17 05:45 12/13/17 05:50 White Blood Count 10.0 x10^3/uL (4.0-11.0) 10.6 x10^3/uL (4.0-11.0) Red Blood Count 3.44 x10^6/uL (3.50-5.40) 3.60 x10^6/uL (3.50-5.40) Hemoglobin 9.0 g/dL (12.0-15.5) 9.4 g/dL (12.0-15.5) Hematocrit 28.2 % (36.0-47.0) 29.9 % (36.0-47.0) Mean Corpuscular Volume 82 fL (79-100) 83 fL (79-100) Mean Corpuscular Hemoglobin 26 pg (25-35) 26 pg (25-35) Mean Corpuscular Hemoglobin Concent 32 g/dL (31-37) 31 g/dL (31-37) Red Cell Distribution Width 20.1 % (11.5-14.5) 19.6 % (11.5-14.5) Platelet Count 200 x10^3/uL (140-400) 194 x10^3/uL (140-400) Neutrophils (%) (Auto) 62 % (31-73) 66 % (31-73) Lymphocytes (%) (Auto) 18 % (24-48) 14 % (24-48) Monocytes (%) (Auto) 8 % (0-9) 8 % (0-9) Eosinophils (%) (Auto) 10 % (0-3) 11 % (0-3) Basophils (%) (Auto) 1 % (0-3) 1 % (0-3) Neutrophils # (Auto) 6.2 x10^3uL (1.8-7.7) 7.1 x10^3uL (1.8-7.7) Lymphocytes # (Auto) 1.8 x10^3/uL (1.0-4.8) 1.5 x10^3/uL (1.0-4.8) Monocytes # (Auto) 0.8 x10^3/uL (0.0-1.1) 0.8 x10^3/uL (0.0-1.1) Eosinophils # (Auto) 1.0 x10^3/uL (0.0-0.7) 1.2 x10^3/uL (0.0-0.7) Basophils # (Auto) 0.1 x10^3/uL (0.0-0.2) 0.1 x10^3/uL (0.0-0.2) Sodium Level 136 mmol/L (136-145) 140 mmol/L (136-145) Potassium Level 4.1 mmol/L (3.5-5.1) 3.6 mmol/L (3.5-5.1) Chloride Level 95 mmol/L (98-107) 99 mmol/L (98-107) Carbon Dioxide Level 26 mmol/L (21-32) 28 mmol/L (21-32) Anion Gap 15 (6-14) 13 (6-14) Blood Urea Nitrogen 28 mg/dL (7-20) 12 mg/dL (7-20) Creatinine 5.0 mg/dL (0.6-1.0) 2.8 mg/dL (0.6-1.0) Estimated GFR (Cockcroft-Gault) 10.2 19.9 Glucose Level 85 mg/dL (70-99) 82 mg/dL (70-99) Calcium Level 9.9 mg/dL (8.5-10.1) 10.1 mg/dL (8.5-10.1) Laboratory Tests Test 12/13/17 05:50 White Blood Count 10.6 x10^3/uL (4.0-11.0) Red Blood Count 3.60 x10^6/uL (3.50-5.40) Hemoglobin 9.4 g/dL (12.0-15.5) Hematocrit 29.9 % (36.0-47.0) Mean Corpuscular Volume 83 fL (79-100) Mean Corpuscular Hemoglobin 26 pg (25-35) Mean Corpuscular Hemoglobin Concent 31 g/dL (31-37) Red Cell Distribution Width 19.6 % (11.5-14.5) Platelet Count 194 x10^3/uL (140-400) Neutrophils (%) (Auto) 66 % (31-73) Lymphocytes (%) (Auto) 14 % (24-48) Monocytes (%) (Auto) 8 % (0-9) Eosinophils (%) (Auto) 11 % (0-3) Basophils (%) (Auto) 1 % (0-3) Neutrophils # (Auto) 7.1 x10^3uL (1.8-7.7) Lymphocytes # (Auto) 1.5 x10^3/uL (1.0-4.8) Monocytes # (Auto) 0.8 x10^3/uL (0.0-1.1) Eosinophils # (Auto) 1.2 x10^3/uL (0.0-0.7) Basophils # (Auto) 0.1 x10^3/uL (0.0-0.2) Sodium Level 140 mmol/L (136-145) Potassium Level 3.6 mmol/L (3.5-5.1) Chloride Level 99 mmol/L (98-107) Carbon Dioxide Level 28 mmol/L (21-32) Anion Gap 13 (6-14) Blood Urea Nitrogen 12 mg/dL (7-20) Creatinine 2.8 mg/dL (0.6-1.0) Estimated GFR (Cockcroft-Gault) 19.9 Glucose Level 82 mg/dL (70-99) Calcium Level 10.1 mg/dL (8.5-10.1) Microbiology 12/02/17 Blood Culture - Final, Complete NO GROWTH AFTER 5 DAYS Medications Current Medications Sodium Chloride 500 ml @ 250 mls/hr 1X ONCE IV Last administered on at 23:00; Start 12/02/17 at 23:15; Stop 12/03/17 at 01:14; Status DC Norepinephrine Bitartrate 250 ml @ 0 mls/hr 1X ONCE IV Last administered on at 23:27; Start 12/02/17 at 23:30; Stop 12/02/17 at 23:31; Status DC Ondansetron HCl (Zofran) 4 mg PRN Q8HRS PRN IV NAUSEA/VOMITING; Start at 23:30; Stop 12/03/17 at 23:29; Status DC Morphine Sulfate (Morphine Sulfate) 4 mg PRN Q2HR PRN IV PAIN Last administered on 12/03/17at 01:16; Start 12/02/17 at 23:30; Stop 12/03/17 at 23 :29; Status DC Acetaminophen (Tylenol) 650 mg PRN Q4HRS PRN PO FEVER; Start 12/02/17 at 23:30 ; Stop 12/03/17 at 23:29; Status DC Ceftaroline Fosamil 200 mg/ Sodium Chloride 250 ml @ 250 mls/hr Q12HR IV Last administered on 12/12/17at 20:40; Start 12/03/17 at 00:30 Norepinephrine Bitartrate 250 ml @ 1.875 mls/ hr CONT PRN IV SEE I/O RECORD; Start 12/03/17 at 01:15; Stop 12/04/17 at 15:30; Status DC Pharmacy Consult (C.diff Med Screen By Rx) 1 each 1X ONCE MC ; Start 12/03/17 at 09:00; Stop 12/03/17 at 09:01; Status DC Lactobacillus Rhamnosus (Culturelle) 1 cap BID PO Last administered on at 13:09; Start 12/03/17 at 21:00; Stop 12/04/17 at 14:23; Status DC Acetaminophen (Tylenol Supp) 650 mg PRN Q6HRS PRN AK MILD PAIN / TEMP; Start 12/03/17 at 10:45 Cinacalcet (Sensipar) 30 mg HS PO Last administered on 12/12/17at 20:40; Start 12/03/17 at 21:00 Diphenoxylate HCl/ Atropine (Lomotil) 1 tab PRN Q8HRS PRN PO DIARRHEA Last administered on 12/12/17at 16:44; Start 12/03/17 at 10:45 Vitamin B Complex/ Vitamin C (Kassie-Luann) 1 tab DAILY PO Last administered on at 09:35; Start 12/03/17 at 11:30 Acetaminophen/ Hydrocodone Bitart (Lortab 7.5/325) 1 tab PRN Q8HRS PRN PO MODERATE-SEVERE PAIN Last administered on 12/13/17at 01:44; Start 12/03/17 at 10 :45 Artificial Tears (Artificial Tears) 1 drop PRN Q15MIN PRN OU DRY EYE; Start at 10:45 Triamcinolone Acetonide (Kenalog) 1 hanh PRN Q8HRS PRN TP RASH; Start 12/03/17 at 10:45 Midodrine (Proamatine) 10 mg [id number] PO Last administered on 12/13/17at 06:26; Start 12/03/17 at 13:00 Multivitamins (Thera M Plus) 1 tab DAILY PO Last administered on 12/12/17at 09: 35; Start 12/04/17 at 09:00 Sulfasalazine (Azulfidine) 500 mg BID PO Last administered on 12/12/17at 20:40 ; Start 12/03/17 at 11:30 Potassium Chloride/Water 50 ml @ 50 mls/hr 1X ONCE IV Last administered on at 13:09; Start 12/03/17 at 12:00; Stop 12/03/17 at 12:59; Status DC Darbepoetin Justin (Aranesp) 60 mcg WEEKLYHS SQ Last administered on 12/10/17at 22:28; Start 12/03/17 at 21:00 Heparin Sodium (Porcine) (Heparin Sodium) 5,000 unit Q8HRS SQ Last administered on 12/04/17at 06:01; Start 12/03/17 at 14:00; Stop 12/04/17 at 13 :44; Status DC Daptomycin 250 mg/ Sodium Chloride 50 ml @ 100 mls/hr Q48H IV Last administered on 12/12/17at 09:35; Start 12/04/17 at 09:00 Iodixanol (Visipaque 320) 100 ml STK-MED ONCE .ROUTE ; Start 12/04/17 at 08:38 ; Stop 12/04/17 at 08:39; Status DC Lidocaine/Sodium Bicarbonate (Buffered Lidocaine 1%) 3 ml STK-MED ONCE .ROUTE ; Start 12/04/17 at 08:38; Stop 12/04/17 at 08:39; Status DC Heparin Sodium/ Sodium Chloride 0 ml @ As Directed STK-MED ONCE .ROUTE ; Start 12/04/17 at 08:39; Stop 12/04/17 at 08:40; Status DC Sodium Chloride 1,000 ml @ 1,000 mls/hr Q1H PRN IV hypotension; Start at 08:51; Stop 12/05/17 at 14:50; Status DC Sodium Chloride 1,000 ml @ 400 mls/hr Q2H30M PRN IV PATENCY; Start 12/05/17 at 08:51; Stop 12/05/17 at 20:50; Status DC Info (PHARMACY MONITORING -- do not chart) 1 each PRN DAILY PRN MC SEE COMMENTS ; Start 12/05/17 at 09:00; Status UNV Info (PHARMACY MONITORING -- do not chart) 1 each PRN DAILY PRN MC SEE COMMENTS ; Start 12/05/17 at 09:00; Stop 12/07/17 at 13:44; Status DC Acetaminophen (Tylenol) 650 mg 1X PRN PRN PO PRE-TRANSFUSION; Start 12/05/17 at 10:30; Stop 12/05/17 at 21:00; Status DC Diphenhydramine HCl (Benadryl) 25 mg PRN 1X PRN PO PRE-TRANSFUSION; Start at 10:30; Stop 12/05/17 at 21:00; Status DC Phytonadione (Vitamin K Ampule) 5 mg 1X ONCE SQ Last administered on at 15:11; Start 12/05/17 at 13:00; Stop 12/05/17 at 13:01; Status DC Fentanyl Citrate (Fentanyl 2ml Vial) 25 mcg PRN Q4HRS PRN IV PAIN MILD Last administered on 12/09/17at 11:05; Start 12/05/17 at 22:10 Alprazolam (Xanax) 0.5 mg PRN Q8HRS PRN PO ANXIETY / AGITATION Last administered on 12/12/17at 20:40; Start 12/06/17 at 02:45 Fentanyl Citrate (Fentanyl 2ml Vial) 50 mcg PRN Q2HR PRN IV PAIN MODERATE TO SEVERE Last administered on 12/11/17at 06:26; Start 12/06/17 at 02:45 Iodixanol (Visipaque 320) 100 ml STK-MED ONCE .ROUTE ; Start 12/06/17 at 10:49 ; Stop 12/06/17 at 10:50; Status DC Lidocaine/Sodium Bicarbonate (Buffered Lidocaine 1%) 3 ml STK-MED ONCE .ROUTE ; Start 12/06/17 at 10:49; Stop 12/06/17 at 10:50; Status DC Heparin Sodium/ Sodium Chloride 1,000 ml @ As Directed STK-MED ONCE .ROUTE ; Start 12/06/17 at 10:49; Stop 12/06/17 at 10:50; Status DC Heparin Sodium/ Sodium Chloride 500 ml @ As Directed STK-MED ONCE .ROUTE ; Start 12/06/17 at 11:02; Stop 12/06/17 at 11:03; Status DC Fentanyl Citrate (Fentanyl 2ml Vial) 100 mcg STK-MED ONCE .ROUTE ; Start at 11:16; Stop 12/06/17 at 11:17; Status DC Heparin Sodium (Porcine) (Heparin Sodium) 10,000 unit STK-MED ONCE .ROUTE ; Start 12/06/17 at 11:16; Stop 12/06/17 at 11:17; Status DC Nitroglycerin (Nitroglycerin) 200 mcg 1X ONCE IART Last administered on at 12:29; Start 12/06/17 at 12:15; Stop 12/06/17 at 12:16; Status DC Heparin Sodium/ Sodium Chloride (HEPARIN for ARTERIAL LINE FLUSH) 1,000 unit 1X ONCE IART Last administered on 12/06/17at 12:29; Start 12/06/17 at 12:15; Stop 12/06/17 at 12:16; Status DC Lidocaine/Sodium Bicarbonate (Buffered Lidocaine 1%) 3 ml 1X ONCE IJ Last administered on 12/06/17at 12:29; Start 12/06/17 at 12:15; Stop 12/06/17 at 12 :16; Status DC Fentanyl Citrate (Fentanyl 2ml Vial) 100 mcg 1X ONCE IV Last administered on 12/06/17at 12:31; Start 12/06/17 at 12:15; Stop 12/06/17 at 12:16; Status DC Heparin Sodium (Porcine) (Heparin Sodium) 4,000 unit 1X ONCE IV Last administered on 12/06/17at 12:33; Start 12/06/17 at 12:15; Stop 12/06/17 at 12 :16; Status DC Heparin Sodium (Porcine) (Hep Lock Adult) 500 unit STK-MED ONCE IV ; Start at 12:34; Stop 12/06/17 at 12:35; Status DC Iodixanol (Visipaque 320) 97 ml 1X ONCE IART Last administered on 12/06/17at 12:38; Start 12/06/17 at 12:45; Stop 12/06/17 at 12:46; Status DC Heparin Sodium (Porcine) (Hep Lock Adult) 500 unit 1X ONCE IV Last administered on 12/06/17at 12:38; Start 12/06/17 at 12:45; Stop 12/06/17 at 12 :46; Status DC Info (CONTRAST GIVEN -- Rx MONITORING) 1 each PRN DAILY PRN MC SEE COMMENTS; Start 12/06/17 at 13:00; Stop 12/08/17 at 12:59; Status DC Sodium Chloride 1,000 ml @ 1,000 mls/hr Q1H PRN IV hypotension; Start at 13:37; Stop 12/07/17 at 19:36; Status DC Sodium Chloride 1,000 ml @ 400 mls/hr Q2H30M PRN IV PATENCY; Start 12/07/17 at 13:37; Stop 12/08/17 at 01:36; Status DC Info (PHARMACY MONITORING -- do not chart) 1 each PRN DAILY PRN MC SEE COMMENTS ; Start 12/07/17 at 13:45; Status Cancel Potassium Chloride (Klor-Con) 40 meq 1X ONCE PO Last administered on at 14:56; Start 12/08/17 at 13:00; Stop 12/08/17 at 13:02; Status DC Sodium Chloride 1,000 ml @ 1,000 mls/hr Q1H PRN IV hypotension; Start at 12:23; Stop 12/10/17 at 18:22; Status DC Albumin Human 200 ml @ 200 mls/hr 1X PRN PRN IV Hypotension; Start 12/10/17 at 12:30; Stop 12/10/17 at 18:29; Status DC Acetaminophen (Tylenol) 500 mg 1X PRN PRN PO MILD PAIN / TEMP Last administered on 12/11/17at 08:52; Start 12/10/17 at 12:30; Stop 12/11/17 at 12 :29; Status DC Diphenhydramine HCl (Benadryl) 25 mg 1X PRN PRN IV ITCHING; Start 12/10/17 at 12:30; Stop 12/11/17 at 12:29; Status DC Diphenhydramine HCl (Benadryl) 25 mg 1X PRN PRN IV ITCHING; Start 12/10/17 at 12:30; Stop 12/11/17 at 12:29; Status DC Sodium Chloride 1,000 ml @ 400 mls/hr Q2H30M PRN IV PATENCY; Start 12/10/17 at 12:23; Stop 12/11/17 at 00:22; Status DC Info (PHARMACY MONITORING -- do not chart) 1 each PRN DAILY PRN MC SEE COMMENTS ; Start 12/10/17 at 12:30 Silver Sulfadiazine (Silvadene) 1 hanh DAILY TP Last administered on 12/11/17at 08:52; Start 12/10/17 at 13:30 Aspirin (Ecotrin) 81 mg DAILYWBKFT PO Last administered on 12/12/17at 09:35; Start 12/11/17 at 12:00 Sevelamer Carbonate (Renvela) 800 mg TIDWMEALS PO Last administered on at 09:35; Start 12/11/17 at 17:00; Stop 12/12/17 at 15:02; Status DC Sevelamer Carbonate (Renvela) 2.4 gm DAILYWBKFT PO Last administered on at 17:51; Start 12/12/17 at 17:00 Sodium Chloride 1,000 ml @ 1,000 mls/hr Q1H PRN IV hypotension; Start at 12:00; Stop 12/12/17 at 17:59; Status DC Sodium Chloride 1,000 ml @ 400 mls/hr Q2H30M PRN IV PATENCY; Start 12/12/17 at 12:00; Stop 12/12/17 at 23:59; Status DC Info (PHARMACY MONITORING -- do not chart) 1 each PRN DAILY PRN MC SEE COMMENTS ; Start 12/12/17 at 17:00; Status UNV Info (PHARMACY MONITORING -- do not chart) 1 each PRN DAILY PRN MC SEE COMMENTS ; Start 12/12/17 at 17:00; Status UNV Active Scripts Active Midodrine Hcl 5 Mg Tablet 10 Mg PO [id number] Artificial Tears (Polyvinyl Alcohol) 15 Ml Drops 1 Drop OU PRN Q15MIN PRN 30 Days Acetaminophen Supp (Acetaminophen) 650 Mg Supp.rect 650 Mg [place] PRN Q6HRS PRN 30 Days Hydrocodone-Apap 7.5-325 (Hydrocodone Bit/Acetaminophen) 1 Each Tablet 1 Tab PO PRN Q8HRS PRN 7 Days Reported Multivitamins (Multivitamin) 1 Each Tablet 1 Tab PO DAILY Sensipar (Cinacalcet Hcl) 30 Mg Tablet 1 Tab PO HS Azulfidine (Sulfasalazine) 500 Mg Tablet 500 Mg PO BID Lomotil Tablet (Diphenoxylate Hcl/Atropine) 1 Each Tablet 1 Tab PO PRN Q8HRS Nephro-Luann Tablet (Folic Acid/Vitamin B Comp W-C) 0.8 Mg Tablet 1 Tab PO DAILY Triamcinolone Acetonide 0.1% Cream (Triamcinolone Acetonide) 15 Gm Cream..g. 1 Hanh TP PRN Q8HRS apply to bilat legs topically as needed for skin care Vitals/I & O Vital Sign - Last 24 Hours 12/12/17 12/12/17 12/12/17 12/12/17 08:30 11:00 14:13 16:43 Temp 99.1 99.1 Pulse 61 57 Resp 16 18 B/P (MAP) 66/31 (43) 64/33 Pulse Ox 96 97 O2 Delivery Room Air Room Air Room Air 12/12/17 12/12/17 12/12/17 12/12/17 17:52 17:52 19:00 20:05 Temp 97.6 97.6 Pulse 63 66 Resp 16 B/P (MAP) 66/32 67/33 (44) Pulse Ox 97 100 O2 Delivery Room Air Room Air 12/12/17 12/13/17 12/13/17 12/13/17 22:58 01:44 02:45 02:52 Temp 97.9 97.8 97.9 97.8 Pulse 57 66 Resp 17 16 14 17 B/P (MAP) 72/39 (50) 56/29 (38) Pulse Ox 94 100 O2 Delivery Room Air Room Air Room Air Room Air 12/13/17 06:26 Pulse 62 B/P (MAP) 66/35 Intake and Output 12/12/17 12/12/17 12/13/17 15:00 23:00 07:00 Intake Total 360 ml Output Total 1144 ml 635 ml Balance -784 ml -635 ml Nutrition Consultation Dietary Evaluation: Recommendations by RD: Increase Calorie Intake, Protein supplementation Comments: continue Ensure pudding (changed to vanilla) w/lunch and dinner continue Magic cup (changed to valenzuela) w/lunch and dinner Continue w/MVI and kassie-luann Expected Outcomes/Goals: PO intake to meet >75% est needs- met, goal ongoing Malnutrition Findings: Body Fat Depletion (Non Severe: Mild Depletion Weight Status: Underweight JOJO GRIFFIN MD Dec 13, 2017 07:54
[2017-12-13] MEDS: silver sulfADIAZINE 1% CREAM 25GM TUBE. TP SCH (09:00)
[2017-12-13] MEDS: SEVELAMER CARBONATE 2.4 GM PACKET. PO SCH (09:13)
[2017-12-13] MEDS: FOLIC/VIT B COMP W-C (RENAL) TABLET. PO SCH (09:13)
[2017-12-13] MEDS: NORMAL SALINE IV SCH (09:13)
[2017-12-13] MEDS: MULTIVITAMIN with MINERAL TABLET. PO SCH (09:13)
[2017-12-13] MEDS: sulfaSALAzine 500 MG TABLET PO SCH (09:13)
[2017-12-13] MEDS: CEFTAROLINE FOSAMIL IV SCH (09:13)
[2017-12-13] MEDS: ASPIRIN ENTERIC COATED 81 MG TABLET.DR. PO SCH (09:13)
[2017-12-13 11:00] VITALS: BP 108/55
[2017-12-13 14:27] VITALS: BP 108/55
[2017-12-13] MEDS: ALPRAZolam 0.5 MG TABLET PO PRN (14:28)
[2017-12-13] MEDS ORDERED: HYDR-2762 PO (15:55)
[2017-12-13] MEDS ORDERED: ASPI-612 PO (15:55)
[2017-12-13] MEDS ORDERED: DARBEPOETIN ALFA IN POLYSORBAT SQ (15:55)
[2017-12-13] MEDS ORDERED: SEVE2.4P PO (15:55)
--- NOTE | 2017-12-13 15:57 | DISCH ---
DISCHARGE DISCHARGE INFORMATION: DISCHARGE DATE: Dec 13, 2017 FINAL DIAGNOSIS Hypotension PAD MRSA bacteremia Can discharge back to SNF on daptomycin alone, Monitor for toxicities. Recent CK 17 cont supportive care weekly CBC, Cr & CPK faxed to our office [phone] CONDITION ON DISCHARGE: Stable CODE STATUS: Code Status: DNR/DNI HALFWAY: SNF STAY <30 DAYS: Yes HOSPICE: HOSPICE: No HOSPICE EVAL & TREAT: No LTAC: ADMIT TO LTAC: No POST DISCHARGE ORDERS: ACTIVITY ORDERS: Activity as tolerated WEIGHT BEARING STATUS: Full weight bearing, As tolerated BATHING ORDERS: Shower-keep dressing dry DIET AFTER DISCHARGE: Renal WOUND/INCISION CARE: Ice to area for comfort, Change dressing OTHER ORDERS: cont iv abx as prescribed by ID. CHECKS AFTER DISCHARGE: CHECKS AFTER DISCHARGE: Check blood press - daily, Check blood sugar, ac/hs, Check your Temp as needed, Weigh Yourself Daily FOLLOW-UP: PHYSICIAN FOLLOW-UP: Dr. Phillips - [facility] LAB ORDERS FOR FOLLOW-UP: weekly CBC, Cr & CPK fax: [phone] TREATMENT/EQUIPMENT ORDERS: ADAPTIVE EQUIPMENT NEEDED: None RESPIRATORY EQUIPMENT NEEDED: Oxygen Physical Therapy For: Evalulation/Treatment Occupational Therapy For: Evaluation/Treatment DISCHARGE MEDICATIONS: Home Meds Active Scripts Hydrocodone Bit/Acetaminophen (HYDROCODONE-APAP 7.5-325 ) 1 Each Tablet, 1 TAB PO PRN Q8HRS PRN for PAIN for 7 Days, #20 TAB 0 Refills Prov:JOJO GRIFFIN MD 12/13/17 Midodrine Hcl (MIDODRINE HCL) 5 Mg Tablet, 10 MG PO [id number], #30 TAB Prov:BEULAH PIKN MD 11/30/17 Polyvinyl Alcohol (ARTIFICIAL TEARS) 15 Ml Drops, 1 DROP OU PRN Q15MIN PRN for DRY EYE for 30 Days, #90 DROP Prov:JOJO GRIFFIN MD 11/16/17 Acetaminophen (ACETAMINOPHEN SUPP) 650 Mg Supp.rect, 650 MG [place] PRN Q6HRS PRN for MILD PAIN / TEMP for 30 Days, #120 SUPP.RECT Prov:JOJO GRIFFIN MD 11/16/17 Reported Medications Multivitamin (MULTIVITAMINS) 1 Each Tablet, 1 TAB PO DAILY, #90 TAB 3 Refills 11/23/17 Cinacalcet Hcl (SENSIPAR) 30 Mg Tablet, 1 TAB PO HS, #30 TAB 11 Refills 11/03/17 Sulfasalazine (AZULFIDINE) 500 Mg Tablet, 500 MG PO BID, TAB 11/03/17 Diphenoxylate Hcl/Atropine (LOMOTIL TABLET) 1 Each Tablet, 1 TAB PO PRN Q8HRS, # 30 TAB 11/03/17 Folic Acid/Vitamin B Comp W-C (NEPHRO-KAREN TABLET) 0.8 Mg Tablet, 1 TAB PO DAILY , #30 TAB 5 Refills 10/31/17 Triamcinolone Acetonide (TRIAMCINOLONE ACETONIDE 0.1% CREAM) 15 Gm Cream..g., 1 DEO TP PRN Q8HRS, TUBE apply to bilat legs topically as needed for skin care 10/31/17 JOJO GRIFFIN MD Dec 13, 2017 15:57
--- NOTE | 2017-12-13 15:58 | PDOC3 ---
Discharge Summary Visit Information Date of Admission: Dec 02, 2017 Date of Discharge: Dec 13, 2017 Admitting Diagnosis: Subungual abcess, dialysis disequilibrium Final Diagnosis Subungual abcess, dialysis disequilibrium Brief Hospital Course Allergies Allergies Coded Allergies Type Severity Reaction Last Updated Verified codeine Allergy Intermediate HIVES 11/26/17 Yes Vital Signs Vital Signs Date Time Temp Pulse Resp B/P (MAP) Pulse Ox O2 Delivery O2 Flow Rate FiO2 12/13/17 15:26 Room Air 12/13/17 14:27 80 108/55 12/13/17 14:26 97 12/13/17 11:00 97.9 18 97.9 Lab Results Laboratory Tests Test 12/12/17 05:45 12/13/17 05:50 White Blood Count 10.0 x10^3/uL (4.0-11.0) 10.6 x10^3/uL (4.0-11.0) Red Blood Count 3.44 x10^6/uL (3.50-5.40) 3.60 x10^6/uL (3.50-5.40) Hemoglobin 9.0 g/dL (12.0-15.5) 9.4 g/dL (12.0-15.5) Hematocrit 28.2 % (36.0-47.0) 29.9 % (36.0-47.0) Mean Corpuscular Volume 82 fL (79-100) 83 fL (79-100) Mean Corpuscular Hemoglobin 26 pg (25-35) 26 pg (25-35) Mean Corpuscular Hemoglobin Concent 32 g/dL (31-37) 31 g/dL (31-37) Red Cell Distribution Width 20.1 % (11.5-14.5) 19.6 % (11.5-14.5) Platelet Count 200 x10^3/uL (140-400) 194 x10^3/uL (140-400) Neutrophils (%) (Auto) 62 % (31-73) 66 % (31-73) Lymphocytes (%) (Auto) 18 % (24-48) 14 % (24-48) Monocytes (%) (Auto) 8 % (0-9) 8 % (0-9) Eosinophils (%) (Auto) 10 % (0-3) 11 % (0-3) Basophils (%) (Auto) 1 % (0-3) 1 % (0-3) Neutrophils # (Auto) 6.2 x10^3uL (1.8-7.7) 7.1 x10^3uL (1.8-7.7) Lymphocytes # (Auto) 1.8 x10^3/uL (1.0-4.8) 1.5 x10^3/uL (1.0-4.8) Monocytes # (Auto) 0.8 x10^3/uL (0.0-1.1) 0.8 x10^3/uL (0.0-1.1) Eosinophils # (Auto) 1.0 x10^3/uL (0.0-0.7) 1.2 x10^3/uL (0.0-0.7) Basophils # (Auto) 0.1 x10^3/uL (0.0-0.2) 0.1 x10^3/uL (0.0-0.2) Sodium Level 136 mmol/L (136-145) 140 mmol/L (136-145) Potassium Level 4.1 mmol/L (3.5-5.1) 3.6 mmol/L (3.5-5.1) Chloride Level 95 mmol/L (98-107) 99 mmol/L (98-107) Carbon Dioxide Level 26 mmol/L (21-32) 28 mmol/L (21-32) Anion Gap 15 (6-14) 13 (6-14) Blood Urea Nitrogen 28 mg/dL (7-20) 12 mg/dL (7-20) Creatinine 5.0 mg/dL (0.6-1.0) 2.8 mg/dL (0.6-1.0) Estimated GFR (Cockcroft-Gault) 10.2 19.9 Glucose Level 85 mg/dL (70-99) 82 mg/dL (70-99) Calcium Level 9.9 mg/dL (8.5-10.1) 10.1 mg/dL (8.5-10.1) Laboratory Tests Test 12/13/17 05:50 White Blood Count 10.6 x10^3/uL (4.0-11.0) Red Blood Count 3.60 x10^6/uL (3.50-5.40) Hemoglobin 9.4 g/dL (12.0-15.5) Hematocrit 29.9 % (36.0-47.0) Mean Corpuscular Volume 83 fL (79-100) Mean Corpuscular Hemoglobin 26 pg (25-35) Mean Corpuscular Hemoglobin Concent 31 g/dL (31-37) Red Cell Distribution Width 19.6 % (11.5-14.5) Platelet Count 194 x10^3/uL (140-400) Neutrophils (%) (Auto) 66 % (31-73) Lymphocytes (%) (Auto) 14 % (24-48) Monocytes (%) (Auto) 8 % (0-9) Eosinophils (%) (Auto) 11 % (0-3) Basophils (%) (Auto) 1 % (0-3) Neutrophils # (Auto) 7.1 x10^3uL (1.8-7.7) Lymphocytes # (Auto) 1.5 x10^3/uL (1.0-4.8) Monocytes # (Auto) 0.8 x10^3/uL (0.0-1.1) Eosinophils # (Auto) 1.2 x10^3/uL (0.0-0.7) Basophils # (Auto) 0.1 x10^3/uL (0.0-0.2) Sodium Level 140 mmol/L (136-145) Potassium Level 3.6 mmol/L (3.5-5.1) Chloride Level 99 mmol/L (98-107) Carbon Dioxide Level 28 mmol/L (21-32) Anion Gap 13 (6-14) Blood Urea Nitrogen 12 mg/dL (7-20) Creatinine 2.8 mg/dL (0.6-1.0) Estimated GFR (Cockcroft-Gault) 19.9 Glucose Level 82 mg/dL (70-99) Calcium Level 10.1 mg/dL (8.5-10.1) Brief Hospital Course Admitted 12/02/17 with hypotension with dialysis disequilibrium to ICU initially on pressors, improved, however had severe right toe pain with critical PVD found to have subungual abscess, drained and removed with prolonged recovery Pt seen and examined while laying in bed Discussed w/RN Discussed w/pt Feeling improved, still with toe pain, dizzy upon standing without assistance, needs left prosthetic fitting and right heel touch only. A/P: rt big toe nail removed by pod 12/10, c/o more pain today, 11/21 Recent sepsis before this admission with MRSA bacteremia Diarrhea Hypokalemia chronic Hypotension on midodrine H/o MRSA bacteremia ESRD on HD H/o HTN H/o CAD left leg BKA rt big toe pain with extensive distal vascular dz. rt leg small ulcer. rt great toe subungnal fluid abscess s/p nail removal 12/10 plan: fu with vascular, did angiogram and angioplasty with little improvement , no further sx needed except if pt want amputation.asa daily fu with ID, on 2 iv abx ,dc with dapto to SNF when insurance approve fu with sw cont HD on midodrine dc today to SNF, rt big toe wound care Discharge Information Condition at Discharge: Improved Follow Up: Weeks (2) Disposition/Orders: D/C to Another Facility ([facility]) Scheduled Aspirin (Aspirin Ec) 81 Mg Tablet., 81 MG PO [id number] for CAD for 30 Days, # 30 Prescribed by: JOJO GRIFFIN MD on 12/13/17 1555 Cinacalcet Hcl (Sensipar) 30 Mg Tablet, 1 TAB PO HS, #30 Ref 11 (Reported) Entered as Reported by: MARK GUERRA on 11/03/17 152 Last Action: Continued on 12/03/17 104 by JOJO GRIFFIN MD Diphenoxylate Hcl/Atropine (Lomotil Tablet) 1 Each Tablet, 1 TAB PO PRN Q8HRS, # 30 (Reported) Entered as Reported by: MARK GUERRA on 11/03/17 1520 Last Action: Continued on 12/03/17 104 by JOJO GRIFFIN MD Folic Acid/Vitamin B Comp W-C (Nephro-Nabeel Tablet) 0.8 Mg Tablet, 1 TAB PO DAILY , #30 Ref 5 (Reported) Entered as Reported by: Ino Miller on 10/31/17 1938 Last Action: Continued on 12/03/17 104 by JOJO GRIFFIN MD Midodrine Hcl (Midodrine Hcl) 5 Mg Tablet, 10 MG PO [id number], #30 Prescribed by: BEULAH PINK MD on 11/30/17 1433 Last Action: Converted on 12/03/17 104 by JOJO GRIFFIN MD Multivitamin (Multivitamins) 1 Each Tablet, 1 TAB PO DAILY, #90 Ref 3 (Reported) Entered as Reported by: FÁTIMA RICHMOND on 11/23/17 0024 Last Action: Converted on 12/03/17 104 by JOJO GRIFFIN MD Sevelamer Carbonate (Renvela) 2.4 Gm Powd.pack, 2.4 GM PO [id number] for hyperphosphatemia for 30 Days, #30 Prescribed by: JOJO GRIFFIN MD on 12/13/17 1555 Sulfasalazine (Azulfidine) 500 Mg Tablet, 500 MG PO BID, (Reported) Entered as Reported by: MARK GURERA on 11/03/17 1520 Last Action: Converted on 12/03/171048 by JOJO GRIFFIN MD Triamcinolone Acetonide (Triamcinolone Acetonide 0.1% Cream) 15 Gm Cream..g., 1 DEO TP PRN Q8HRS, (Reported) apply to bilat legs topically as needed for skin care Entered as Reported by: Ino Miller on 10/31/17 1938 Last Action: Continued on 12/03/171048 by JOJO GRIFFIN MD [Darbepoetin Justin In Polysorbat] 60 MCG/0.3 ML DISP.SYRIN, 60 MCG SQ WEEKLYHS for 4 Days Prescribed by: JOJO GRIFFIN MD on 12/13/17 1555 Scheduled PRN Acetaminophen (Acetaminophen Supp) 650 Mg Supp.rect, 650 MG CA PRN Q6HRS PRN for MILD PAIN / TEMP for 30 Days, #120 Prescribed by: JOJO GRIFFIN MD on 11/16/17 0741 Last Action: Continued on 12/03/171048 by JOJO GRIFFIN MD Hydrocodone Bit/Acetaminophen (Hydrocodone-Apap 7.5-325 ) 1 Each Tablet, 1 TAB PO PRN Q8HRS PRN for PAIN for 7 Days, #20 Ref 0 Prescribed by: JOJO GRIFFIN MD on 12/13/17 1555 Polyvinyl Alcohol (Artificial Tears) 15 Ml Drops, 1 DROP OU PRN Q15MIN PRN for DRY EYE for 30 Days, #90 Prescribed by: JOJO GRIFFIN MD on 11/16/17 0741 Last Action: Continued on 12/03/17 1049 by MD ELIAS JOYA CHRISTOPHER S MD Dec 13, 2017 15:58
== END 2017-12-13 17:15 | disposition home or self-care (01) | DRG 853 ==
LOC: ER 22:53 → 1 WEST ICU 23:30 → 4 NORTH 12-04 14:55
PROVIDERS: ADMIT Internal Medicine; ATTEND Internal Medicine
PROC: 30233L1 Transfusion of Nonautologous Fresh Plasma into Peripheral Vein, Percutaneous Approach (ICD-10-PCS; 2017-12-02)
PROC: 30233K1 Transfusion of Nonautologous Frozen Plasma into Peripheral Vein, Percutaneous Approach (ICD-10-PCS; 2017-12-02)
PROC: 5A1D70Z Performance of Urinary Filtration, Intermittent, Less than 6 Hours Per Day (ICD-10-PCS; 2017-12-05)
PROC: 047P3ZZ Dilation of Right Anterior Tibial Artery, Percutaneous Approach (ICD-10-PCS; principal; 2017-12-07)
PROC: B41D1ZZ Fluoroscopy of Aorta and Bilateral Lower Extremity Arteries using Low Osmolar Contrast (ICD-10-PCS; 2017-12-07)
PROC: 5A1D70Z Performance of Urinary Filtration, Intermittent, Less than 6 Hours Per Day (ICD-10-PCS; 2017-12-07)
PROC: 5A1D70Z Performance of Urinary Filtration, Intermittent, Less than 6 Hours Per Day (ICD-10-PCS; 2017-12-12)
PROC: 0HBRXZZ Excision of Toe Nail, External Approach (ICD-10-PCS; 2017-12-12)
PROC: 0HBRXZZ Excision of Toe Nail, External Approach (ICD-10-PCS; 2017-12-12)
PROC: 0HBRXZZ Excision of Toe Nail, External Approach (ICD-10-PCS; 2017-12-12)
PROC: 0HBRXZZ Excision of Toe Nail, External Approach (ICD-10-PCS; 2017-12-12)
PROC: 0HDRXZZ Extraction of Toe Nail, External Approach (ICD-10-PCS; 2017-12-12)
DX: A41.9 Sepsis, unspecified organism (principal); N18.6 End stage renal disease; R65.21 Severe sepsis with septic shock; I12.0 Hypertensive chronic kidney disease with stage 5 chronic kidney disease or end stage renal disease; K50.90 Crohn's disease, unspecified, without complications; L97.219 Non-pressure chronic ulcer of right calf with unspecified severity; J98.11 Atelectasis; L02.611 Cutaneous abscess of right foot; Z68.1 Body mass index [BMI] 19.9 or less, adult; B35.1 Tinea unguium; B95.62 Methicillin resistant Staphylococcus aureus infection as the cause of diseases classified elsewhere; D63.1 Anemia in chronic kidney disease; E78.5 Hyperlipidemia, unspecified; E86.0 Dehydration; E87.6 Hypokalemia; I25.10 Atherosclerotic heart disease of native coronary artery without angina pectoris; E21.3 Hyperparathyroidism, unspecified; F41.9 Anxiety disorder, unspecified; I48.91 Unspecified atrial fibrillation; I73.9 Peripheral vascular disease, unspecified; I95.89 Other hypotension; I99.8 Other disorder of circulatory system; S91.201A Unspecified open wound of right great toe with damage to nail, initial encounter; L60.0 Ingrowing nail; I77.1 Stricture of artery; R13.10 Dysphagia, unspecified; X58.XXXA Exposure to other specified factors, initial encounter; Z66 Do not resuscitate; Z79.82 Long term (current) use of aspirin; Z86.14 Personal history of Methicillin resistant Staphylococcus aureus infection; Z89.512 Acquired absence of left leg below knee; Z99.2 Dependence on renal dialysis; Z87.440 Personal history of urinary (tract) infections; Z79.899 Other long term (current) drug therapy; Z88.8 Allergy status to other drugs, medicaments and biological substances; Z87.01 Personal history of pneumonia (recurrent); Y93.89 Activity, other specified; Y92.89 Other specified places as the place of occurrence of the external cause; Y99.8 Other external cause status; R63.6 Underweight
CPT/HCPCS: 36415; 37228; 71045; 75630; 75710; 76937; 80048; 80053; 80069; 82550; 83605; 83735; 84100; 84484; 85007; 85025; 85027; 85610; 85730; 86850; 86870; 86880; 86900; 86901; 86927; 87040; 87324; 87641; 93005; 96365; C1713; C1725; C1760; C1769; C1892; C1894; G0269; J0712; J0878; J0881; J1644; J2270; J3010; J3430; J3480; J3490; J7040; J7050; P9017; 97110; 97530; 97535; 99285-25; J7030

== ENCOUNTER → 2018-06-11 | Outpatient (CLI) | payer MEDICARE ==
[~2018-06-11] MED LIST changes: +ASPI-612 PO; -HYDR-2762 PO; +HYDR-2765 PO; +SEVE2.4P PO
--- NOTE | 2018-06-11 15:20 | RAD ---
EXAM: Right foot, 3 views. HISTORY: Great toe ulcer. COMPARISON: . FINDINGS: 3 views of the right foot are obtained. The majority of the distal aspect of the first distal phalanx is absent. There is a small residual portion of the tuft of the first distal phalanx and the base of the first distal phalanx is intact. There is an overlying soft tissue defect consistent with a reported ulcer. There is bone demineralization. There are vascular calcifications. IMPRESSION: 1. Partially absent first distal phalanx with overlying soft tissue ulceration likely due to the sequela of osteomyelitis. 2. Bone demineralization. Electronically signed by: Annie Plaza MD (06/11/2018 3:17 PM) [facility]
== END | disposition home or self-care (01) ==
LOC: LAB 13:04
PROVIDERS: ATTEND Family Medicine
DX: L97.519 Non-pressure chronic ulcer of other part of right foot with unspecified severity (principal); M81.0 Age-related osteoporosis without current pathological fracture; I70.201 Unspecified atherosclerosis of native arteries of extremities, right leg
CPT/HCPCS: 73630

== ENCOUNTER 2019-12-13 13:12 | Emergency (ER) | payer MEDICARE ==
[~2019-12-13] VITALS: Ht 157.5 cm; Wt 43.0 kg
[~2019-12-13 13:12] MED LIST changes: +AMIO400T5 PO; -ASPI-612 PO; +ASPI-630 PO; +ASPI-886 PO; +ATOR10TA60 PO; +CLOP75TA PO; +CYAN100031 PO; +EPOE200014 IJ; +FLUD0.1T PO; +FOLI0.4T2 PO; +FOLI0.8T21 PO; +GABA600T7 PO; +HYDR-3164 PO; -MIDO5TAB PO; +MIDO5TAB4 PO; +MULT-445 PO; -MULT1TAB52 PO; +PANT40TA77 PO; +RANO10002 PO; +SEVE800T9 PO; +SULF500T36 PO; +TRAZ-118 PO; -VANC1VIA3 MC; +VANC1VIA38 MC
--- NOTE | 2019-12-13 13:59 | PHYS DOC ---
Past Medical History Past Medical History: Renal Failure, UTI Additional Past Medical Histor: chrons, PVD, renal failure, Past Surgical History: Other Additional Past Surgical Histo: Bilat below the knee amputation, port a cath, vas cath Smoking Status: Former Smoker Alcohol Use: None Drug Use: None General Adult EDM: Chief Complaint: OTHER COMPLAINTS HPI: HPI: 79 yo F presents to the ED sent by Dr. Nuñez (who called me), needing right rhino rocket removed. Plan was to have Rhino Rocket removed today (third day of placement) but [facility] didn't show up. Patient reports she was on Plavix but this was discontinued. Unsure if she's on any antibiotics. Last HS was yesterday (MWF). pmh-esrd, htn. hld, chf, copd, pvd and cad w/recent cath at [facility] -unable to intervene. EMR reviewed. Patient was admitted for hypoxic respiratory failure, congestive heart failure exacerbation, hypertension, and hyperkalemia. 12/04 blood cultures w/no growth. Review of Systems: Review of Systems: Constitutional: Denies fever or chills. [] Eyes: Denies change in visual acuity. [] HENT: Denies nasal congestion or sore throat or further epistaxis Respiratory: Denies cough or shortness of breath or hemoptysis Cardiovascular: Denies chest pain or edema or syncope GI: Denies abdominal pain, hematochezia, hematemesis bloody stools or diarrhea. [] : Denies dysuria. [] Musculoskeletal: Denies back pain or joint pain. [] Integument: Denies rash. [] Neurologic: Denies headache, focal weakness or sensory changes. [] Endocrine: Denies polyuria or polydipsia. [] Lymphatic: Denies swollen glands. [] Psychiatric: Denies depression or anxiety. [] Heart Score: Risk Factors: Risk Factors: DM, Current or recent (<one month) smoker, HTN, HLP, family history of CAD, obesity. Risk Scores: Score 0 - 3: 2.5% MACE over next 6 weeks - Discharge Home Score 4 - 6: 20.3% MACE over next 6 weeks - Admit for Clinical Observation Score 7 - 10: 72.7% MACE over next 6 weeks - Early Invasive Strategies Allergies: Allergies: Allergies Coded Allergies Type Severity Reaction Last Updated Verified codeine Allergy Intermediate HIVES 11/26/17 Yes Physical Exam: PE: Constitutional: Well developed, well nourished, no acute distress, HENT: Normocephalic, atraumatic, right rhino rocket deflated and easily removed, no active bleeding in oropharynx, scant red blood (not an active bleed) over left lateral wing Eyes: EOMI, conjunctiva normal, Neck: Normal range of motion, supple, Cardiovascular: S1-S2 present Lungs & Thorax: Speaking full sentences, bilateral equal chest rise Abdomen: soft, no tenderness Skin: Warm, dry, no erythema, no rash. [] Extremities: No tenderness, no cyanosis, Neurologic: Alert and oriented X 3, normal motor function, normal sensory function, no focal deficits noted. [] Psychologic: Affect normal, judgement normal, mood normal. [] Current Patient Data: Vital Signs: Vital Signs Date Time Temp Pulse Resp B/P (MAP) Pulse Ox O2 Delivery O2 Flow Rate FiO2 12/13/19 13:20 97.6 85 16 131/63 (85) 95 Room Air 97.6 EKG: EKG: [] Radiology/Procedures: Radiology/Procedures: [] Course & Med Decision Making: Course & Med Decision Making Pertinent Labs and Imaging studies reviewed. (See chart for details) Patient well-appearing with no active complaints. Rhino Rocket easily removed. Patient was given very strict sinus precautions/direct pressure instructions with at bedside who understands follow-up care. Strict ED return precautions were given for recurrent, persistent epistaxis with no improvement with direct pressure, hemoptysis, exertional shortness of breath or syncope. Encouraged urgent outpatient follow-up with PMD. Life-threatening processes were considered (labs reviewed-anemia, shock, posterior epistaxis, syncope, fever/infection/shock, etc) but are low suspicion at this time, given history and physical exam. Pt was educated on all prescription medications and adverse effects. All patient's questions were answered and pt was stable at time of discharge. I spoken with the patient and her caregivers. I explained the patient's condition, diagnoses and treatment plan based on the information available to me at this time. I have answered the patient and her caregiver's questions and addressed any concerns. The patient and her caregivers have a good understanding of patient's diagnosis, condition and treatment plan as can be expected at this point. Vital signs have been stable. Patient's condition is stable and appropriate for discharge from the emergency department. Patient will pursue further outpatient evaluation with primary care physician or other designated or consulting physician as outlined in the discharge instructions. The patient and/or caregivers are agreeable to this plan of care and follow-up instructions have been explained in detail. The patient and/or caregivers have received these instructions in written form and have expressed an understanding of the discharge instructions. The patient and/or caregivers are aware that any significant change of condition or worsening of symptoms should prompt immediate return to this or the closest emergency department or call to [facility]. Shandra Disclaimer: [employer] Disclaimer: This electronic medical record was generated, in whole or in part, using a voice recognition dictation system. Departure Departure Impression: Primary Impression: Encounter for removal of nasal pack Disposition: 01 DC HOME SELF CARE/HOMELESS Condition: STABLE Referrals: SAMANTHA FRANCE JR, MD (PCP) Patient Instructions: Nose Drops, Saline, [id number], Nosebleed Additional Instructions: FOLLOW UP WITH ENT: Otolaryngology Address: [address] [place] [address], [address] [place] [address] [facility] Address: [address] [place] [id number] EMERGENCY DEPARTMENT GENERAL DISCHARGE INSTRUCTIONS Thank you for coming to [facility] Emergency Department (ED) today and trusting us with you care. We trust that you had a positive experience in our Emergency Department. If you wish to speak to the department management, you may call the Director at [phone]. YOUR FOLLOW UP INSTRUCTIONS ARE FOLLOWS: 1. Do you have a private Doctor? If you do not have a private doctor, please ask for a resource list of physicians or clinics that may be able to assist you with follow up care. 2. The Emergency Physicain has interpreted your x-rays. The X-Ray specialist will also review them. If there is a change in the findings, you will be notified in 48 hours when at all possible. 3. A lab test or culture has been done, your results will be reviewed and you will be notified if you need a change in treatment. ADDITIONAL INSTRUCTIONS AND INFORMATION: 1. Your care today has been supervised by a physician who is specially trained in emergency care. Many problems require more than one evaluation for a complete diagnosis and treatment. We recommend that you schedule your follow up appointment as recommended to ensure complete treatment of you illness or injury. If you are unable to obtain follow up care and continue to have a problem, or if your condition worsens, we recommend that you return to the ED. 2. We are not able to safely determine your condition over the phone nor are we able to give sound medical advice over the phone. For these safety reasons, if you call for medical advice we will ask you to come to the ED for further evaluation. 3. If you have any questions regarding these discharge instructions please call the ED at [phone]. SAFETY INFORMATION: In the interest of safety, wellness, and injury prevention; we encourage you to wear your sealbelt, if you smoke; quite smoking, and we encourage family to use a protective helmet for bicycling and other sporting events that present an increased risk for head injury. IF YOUR SYMPTOMS WORSEN OR NEW SYMPTOMS DEVELOP, OR YOU HAVE CONCERNS ABOUT YOUR CONDITION; OR IF YOUR CONDITION WORSENS WHILE YOU ARE WAITING FOR YOUR FOLLOW UP APPOINTMENT; EITHER CONTACT YOUR PRIMARY CARE DOCTOR, THE PHYSICIAN WHOSE NAME AND NUMBER YOU WERE GIVEN, OR RETURN TO THE ED IMMEDIATELY. BEVERLY JUNG DO Dec 13, 2019 13:59
[2019-12-13 14:09] VITALS: BP 120/64
== END 2019-12-13 14:05 | disposition home or self-care (01) ==
LOC: ER 13:12
DX: Z48.810 Encounter for surgical aftercare following surgery on the sense organs (principal); N18.9 Chronic kidney disease, unspecified; I73.9 Peripheral vascular disease, unspecified; K50.90 Crohn's disease, unspecified, without complications; Z87.891 Personal history of nicotine dependence; Z88.5 Allergy status to narcotic agent
CPT/HCPCS: 99281